=== PATIENT | male | born 1960 | race Caucasian/White ===

== ENCOUNTER 2016-07-30 13:56 | Inpatient (IN) | payer OTHER ==
[2016-07-30] VITALS (12 sets, daily range): BP systolic 135–149; BP diastolic 71–83; PULSE 81–113; RESP 20–26; TEMP 97.4–98.2; O2SAT 88–97
[~2016-07-30] VITALS: Ht 177.8 cm; Wt 134.7 kg
[~2016-07-30 13:56] MED LIST: ATOR40TA16 PO; BUPR100T4 PO; DOCU100C PO; FOLI1TAB4 PO; FURO40TA PO; GABA300C5 PO; HYDR25TA35 PO; ISOS30TA3 PO; LANTINJ SQ; PANT40TA3 PO; POTA10TA2 PO; SENN1TAB PO; SPIR25 PO; SPIRCAP INH; TRAM50TA PO; TRAZ50TA12 PO; [UNRECOGNIZED DRUG - CODE] PO
[2016-07-30 14:14] LABS: MEAN CORPUSCULAR HGB CONC 28.9 % (32.0-36.0)
[2016-07-30] MEDS ORDERED: SODIUM CHLORIDE 0.9% FLUSH 10 ML FLUSH IVF PRN (14:15)
[2016-07-30] MEDS ORDERED: PROCHLORPERAZINE INJ 10 MG/2 ML VIAL IVP ONE (14:30)
[2016-07-30] MEDS ORDERED: ACETAMINOPHEN 325 MG TAB PO ONE (14:30)
[2016-07-30] MEDS ORDERED: diphenhydrAMINE HCL 50 MG/ML VIAL IVP ONE (14:30)
[2016-07-30 14:31] LABS: AUTOMATED NEUTROPHIL # 8.8 TH/MM3 (1.8-7.7); BASOPHIL # 0.1 TH/MM3 (0-0.2); BASOPHIL % 0.7 % (0.0-2.0); EOSINOPHIL # 0.3 TH/MM3 (0-0.4); EOSINOPHIL % 2.6 % (0.0-4.0); HEMATOCRIT 33.5 % (39.0-51.0); LYMPH % 16.5 % (9.0-44.0); LYMPHOCYTE # 2.1 TH/MM3 (1.0-4.8); MEAN CELL VOLUME 65.2 FL (80.0-100.0); MEAN CORPUSCULAR HEMOGLOBIN 18.8 PG (27.0-34.0); MONO % 9.7 % (0.0-8.0); NEUT % 70.5 % (16.0-70.0); PLATELET COUNT 269 TH/MM3 (150-450); RED BLOOD COUNT 5.13 MIL/MM3 (4.50-5.90); RED CELL DISTRIBUTION WIDTH 22.3 % (11.6-17.2); WHITE BLOOD COUNT 12.5 TH/MM3 (4.0-11.0)
[2016-07-30 14:37] LABS: HEMO FLAGS AUTO DIFF
[2016-07-30] MEDS ORDERED: IPRASOL NEB (14:38)
[2016-07-30] MEDS ORDERED: LYRI50CA PO (14:38)
--- NOTE | 2016-07-30 14:43 | RADRPT ---
EXAM DATE/TIME: 07/30/2016 14:25 [facility] COMPARISON: CHEST SINGLE AP, February 12, 2016, 3:55. INDICATIONS : Shortness of breath. MEDICAL HISTORY : Chronic obstructive pulmonary disease. Emphysema. Asthma. SURGICAL HISTORY : None. ENCOUNTER: Initial ACUITY: 1 day PAIN SCORE: 0/10 LOCATION: Bilateral chest FINDINGS: There is borderline cardiomegaly with tiny right pleural effusion. Focal consolidation is not seen. P reviously seen NG tube and ET tube have been removed. CONCLUSION: Tiny right pleural effusion. Amilcar Alfaro MD on July 30, 2016 at 14:41 Board Certified Radiologist. This report was verified electronically.
--- NOTE | 2016-07-30 14:44 | RADRPT ---
EXAM DATE/TIME: 07/30/2016 14:29 [facility] COMPARISON: CHEST SINGLE AP, July 30, 2016, 14:25. INDICATIONS : Abdomen pain. MEDICAL HISTORY : Chronic obstructive pulmonary disease. Emphysema. Asthma. SURGICAL HISTORY : None. ENCOUNTER: Initial ACUITY: 1 day PAIN SCORE: 0/10 LOCATION: Bilateral abdomen FINDINGS: The bowel gas is nonspecific. There are no signs of obstruction or free air for technique. No defini te calcified stones are identified for technique. Tiny right pleural effusion is seen. CONCLUSION: Nonspecific abdomen. Amilcar Alfaro MD on July 30, 2016 at 14:41 Board Certified Radiologist. This report was verified electronically.
[2016-07-30 15:03] LABS: PLATELET ESTIMATE SMEAR NORMAL (NORMAL); PLATELET MORPHOLOGY NORMAL (NORMAL); SCAN/DIFF AUTO DIFF CONFIRMED
--- NOTE | 2016-07-30 15:06 | PD ---
HPI Chief Complaint: Respiratory Distress Time Seen by Provider: 14:12 Travel History International Travel<30 days: No Contact w/Intl Traveler<30days: No Traveled to known affect area: No History of Present Illness HPI The patient's 56 years old. He suffers with COPD and CHF. He uses oxygen at home 3 L nasal cannula essentially 24 7. He complains of dyspnea due to swelling in the abdomen. Abdominal swelling also causes abdominal pain. He has been constipated for 3 days. He tried a powder laxative prescribed by his primary doctor, Dr. Gilliland which she reports has not been helpful. Patient reports a very small bowel movement today. He denies vomiting. PFSH Past Medical History Arthritis: No Asthma: Yes Autoimmune Disease: No Anxiety: No Depression: No Heart Rhythm Problems: No Cancer: No Cardiac Catheterization: No Cardiovascular Problems: Yes Chest Pain: Yes Congestive Heart Failure: No COPD: Yes Cerebrovascular Accident: No Coronary Artery Disease: No Diabetes: Yes Patient Takes Glucophage: Yes Diminished Hearing: No Endocrine: Yes Gastrointestinal Disorders: Yes GERD: Yes Genitourinary: No Headaches: No Hiatal Hernia: No Hypertension: No Immune Disorder: No Implanted Vascular Access Dvce: No Musculoskeletal: Yes Neurologic: Yes Psychiatric: No Reproductive: No Respiratory: Yes Migraines: No Seizures: Yes Thyroid Disease: No Ulcer: No Past Surgical History Abdominal Surgery: No Coronary Artery Bypass Graft: No Other Surgery: Yes (wart removed right leg) Social History Alcohol Use: No (STATES QUIT 1 MONTH AGO) Tobacco Use: Yes (1.5 ppd) Substance Use: No Allergies-Medications (Allergen,Severity, Reaction): Coded Allergies: No Known Allergies (Verified , 02/05/16) Reported Meds & Prescriptions Reported Meds & Active Scripts Active Lantus Solostar Pen Inj (Insulin Glargine) 300 Unit/3 Ml Pen 10 Units SQ BID 30 Days Trazodone (Trazodone HCl) 50 Mg Tab 50 Mg PO HS 90 Days Aldactone (Spironolactone) 25 Mg Tab 25 Mg PO BID@,18 90 Days Senna Plus 8.6-50 mg (Sennosides-Docusate Sodium) 1 Tab Tab 1 Tab PO BID 90 Days Reported Lyrica (Pregabalin) 50 Mg Cap 50 Mg PO TID PRN Duoneb (Ipratropium-Albuterol Neb) 0.5-2.5 Mg/3 Ml Neb 3 Ml NEB QID PRN Hydralazine (Hydralazine HCl) 25 Mg Tab 25 Mg PO TID Take with a meal Gabapentin 300 Mg Cap 300 Mg PO DAILY Furosemide 40 Mg Tab 40 Mg PO DAILY Tramadol (Tramadol HCl) 50 Mg Tab 50 Mg PO BID PRN Spiriva Handihaler (Tiotropium Inh) 18 Mcg Cap 18 Mcg INH DAILY 1 capsule = 18 mcg Potassium Chloride ER (Potassium Chloride) 10 Meq Tab 10 Meq PO BID Folate (Folic Acid) 1 Mg Tab 1 Mg PO DAILY Docusate Sodium 100 Mg Cap 100 Mg PO BID Bupropion HCl 100 Mg Tab 100 Mg PO BID Pantoprazole (Pantoprazole Sodium) 40 Mg Tab 40 Mg PO DAILY Review of Systems Except as stated in HPI: all other systems reviewed are Neg General / Constitutional: No: Fever Physical Exam Narrative GENERAL: 56-year-old male pleasant mild to moderate respiratory distress SKIN: Focused skin assessment warm/dry. HEAD: Atraumatic. Normocephalic. EYES: Pupils equal and round. No scleral icterus. No injection or drainage. ENT: No nasal bleeding or discharge. Mucous membranes pink and moist. NECK: Trachea midline. No JVD. CARDIOVASCULAR: Regular rate and rhythm. No murmur appreciated. RESPIRATORY: Tachypnea. Wheezing. GASTROINTESTINAL: Abdomen somewhat distended. No focal tenderness. Soft. MUSCULOSKELETAL: No obvious deformities. No clubbing. No cyanosis. No edema. NEUROLOGICAL: Awake and alert. No obvious cranial nerve deficits. Motor grossly within normal limits. Normal speech. PSYCHIATRIC: Appropriate mood and affect; insight and judgment normal. Data Data Last Documented VS Vital Signs Date Time Temp Pulse Resp B/P Pulse Ox O2 Delivery O2 Flow Rate FiO2 07/30/16 14:10 95 Nasal Cannula 07/30/16 14:10 4 07/30/16 14:07 109 27 07/30/16 13:57 98.2 135/71 VS reviewed Orders Complete Blood Count With Diff (07/30/16 14:13) Comprehensive Metabolic Panel (07/30/16 14:13) B-Type Natriuretic Peptide (07/30/16 14:13) Magnesium (Mg) (07/30/16 14:13) Ckmb (Isoenzyme) Profile (07/30/16 14:13) Troponin I (07/30/16 14:13) Iv Access Insert/Monitor (07/30/16 14:13) Electrocardiogram (07/30/16 14:13) Ecg Monitoring (07/30/16 14:13) Oximetry (07/30/16 14:13) Oxygen Administration (07/30/16 14:13) Chest, Single Ap (07/30/16 14:13) Sodium Chloride 0.9% Flush (Ns Flush) (07/30/16 14:15) Abdomen, Upright Only (07/30/16 14:14) Acetaminophen (Tylenol) (07/30/16 14:30) Prochlorperazine Inj (Compazine Inj) (07/30/16 14:30) Diphenhydramine Inj (Benadryl Inj) (07/30/16 14:30) Lactic Acid (07/30/16 14:24) Arterial Blood Gas (Abg) (07/30/16 ) Aspirin (Aspirin) (07/30/16 15:30) Nitroglycerin 2% Oint (Nitroglycerin 2% (07/30/16 15:30) Metoprolol Tartrate Inj (Lopressor Inj) (07/30/16 15:30) Naloxone Inj (Narcan Inj) (07/30/16 15:45) Resp Bipap / Cpap Non Invas Vt (07/30/16 15:46) Labs Laboratory Tests Test 07/30/16 07/30/16 07/30/16 14:20 14:50 15:40 White Blood Count 12.5 TH/MM3 Red Blood Count 5.13 MIL/MM3 Hemoglobin 9.7 GM/DL Hematocrit 33.5 % Mean Corpuscular Volume 65.2 FL Mean Corpuscular Hemoglobin 18.8 PG Mean Corpuscular Hemoglobin 28.9 % Concent Red Cell Distribution Width 22.3 % Platelet Count 269 TH/MM3 Mean Platelet Volume 8.6 FL Neutrophils (%) (Auto) 70.5 % Lymphocytes (%) (Auto) 16.5 % Monocytes (%) (Auto) 9.7 % Eosinophils (%) (Auto) 2.6 % Basophils (%) (Auto) 0.7 % Neutrophils # (Auto) 8.8 TH/MM3 Lymphocytes # (Auto) 2.1 TH/MM3 Monocytes # (Auto) 1.2 TH/MM3 Eosinophils # (Auto) 0.3 TH/MM3 Basophils # (Auto) 0.1 TH/MM3 CBC Comment AUTO DIFF Differential Comment AUTO DIFF CONFIRMED Platelet Estimate NORMAL Platelet Morphology Comment NORMAL Sodium Level 138 MEQ/L Potassium Level 4.8 MEQ/L Chloride Level 101 MEQ/L Carbon Dioxide Level 32.2 MEQ/L Anion Gap 5 MEQ/L Blood Urea Nitrogen 15 MG/DL Creatinine 0.83 MG/DL Estimat Glomerular Filtration 96 ML/MIN Rate Random Glucose 176 MG/DL Calcium Level 8.0 MG/DL Magnesium Level 1.7 MG/DL Total Bilirubin 0.5 MG/DL Aspartate Amino Transf 46 U/L (AST/SGOT) Alanine Aminotransferase 78 U/L (ALT/SGPT) Alkaline Phosphatase 143 U/L Total Creatine Kinase 71 U/L Troponin I 0.23 NG/ML B-Type Natriuretic Peptide 295 PG/ML Total Protein 6.2 GM/DL Albumin 3.0 GM/DL Lactic Acid Level 0.7 mmol/L Blood Gas Puncture Site RT RADIAL Blood Gas Patient Temperature 98.6 Blood Gas HCO3 35 mmol/L Blood Gas Base Excess 8.3 mmol/L Blood Gas Oxygen Saturation 88 % Arterial Blood pH 7.29 Arterial Blood Partial 75 mmHg Pressure CO2 Arterial Blood Partial 76 mmHG Pressure O2 Arterial Blood Oxygen Content 12.1 Vol % Arterial Blood 5.7 % Carboxyhemoglobin Arterial Blood Methemoglobin 0.5 % Blood Gas Hemoglobin 9.8 G/DL Oxygen Delivery Device NASAL CANNULA Blood Gas Liter Flow 4 L/M [facility] Medical Decision Making Medical Screen Exam Complete: Yes Emergency Medical Condition: Yes Medical Record Reviewed: Yes Differential Diagnosis COPD, constipation, CHF, bowel obstruction, atelectasis, pleural effusion Narrative Course CBC & BMP Diagram 07/30/16 14:20 BNP 295 Troponin 0.23 LFTs are grossly unremarkable lactic acid 0.7 Last 24 hours Impressions Abdomen X-Ray 07/30/16 1414 Signed Impressions: Service Date/Time: Saturday, July 30, 2016 14:29 - CONCLUSION: Nonspecific abdomen. Amilcar Alfaro MD Chest X-Ray 07/30/16 1413 Signed Impressions: Service Date/Time: Saturday, July 30, 2016 14:25 - CONCLUSION: Tiny right pleural effusion. Amilcar Alfaro MD Patient was found to be diaphoretic and sonorous at about 3:30 PM. He is somewhat difficult to arouse though does respond to sternal rub. Pupils appear to be about 1 mm bilaterally. Mild tachycardia to about 110 was observed. Blood pressure was about 160/90. The patient received 0.4 mg Narcan. The patient also was ordered an ABG which shows hypercarbic respiratory distress: 7.29/75/35 ABG PO2 76 on FIO2. BiPAP initiated. The patient will be admitted to Dr. Zafar under the instrumental music teacher service. Critical Care Narrative Aggregate critical care time was 35 minutes. Time to perform other separately billable procedures was not included in the critical care time. My time did not include minutes spent treating any other patients simultaneously or on activities that did not directly contribute to the patient's treatment. The services I provided to this patient were to treat and/or prevent clinically significant deterioration that could result in: Respiratory arrest, hypoxia, cardiac arrest I provided critical care services requiring my management, as noted below: Chart data review, documentation time, medication orders and management, vital sign assessments/reviewing monitor data, ordering and reviewing lab tests, ordering and interpreting/reviewing x-rays and diagnostic studies, care of the patient and discussion of the patient with the admitting physicians. Diagnosis Primary Impression: Hypercarbia Additional Impressions: Chest pain Qualified Code: R07.9 - Chest pain, unspecified type Constipation Qualified Code: K59.00 - Constipation, unspecified constipation type Respiratory distress Admitting Information Admitting Physician Requests: Admit Additional Instructions: You have a choice when it comes to health care, and we are glad that you chose [facility]. Hopefully, we have met your expectations on today's visit. You are welcome to return to [facility] at any time, as we are committed to meeting the health care needs of our community. Flavio Monge MD Jul 30, 2016 15:06
[2016-07-30 15:10] LABS: ALKALINE PHOSPHATASE 143 U/L (45-117); ALT (GPT) 78 U/L (12-78); ANION GAP 5 MEQ/L (5-15); AST (GOT) 46 U/L (15-37); BICARBONATE 32.2 MEQ/L (21.0-32.0); BLOOD UREA NITROGEN 15 MG/DL (7-18); CHLORIDE 101 MEQ/L (98-107); GLOMERULAR FILTRATION RATE 96 ML/MIN (>89); MAGNESIUM 1.7 MG/DL (1.5-2.5); SODIUM (NA) 138 MEQ/L (136-145); TOTAL BILIRUBIN ADULT 0.5 MG/DL (0.2-1.0)
[2016-07-30 15:12] LABS: POTASSIUM 4.8 MEQ/L (3.5-5.1)
[2016-07-30 15:13] LABS: CREATINE KINASE 71 U/L (39-308)
[2016-07-30] MEDS ORDERED: NITROGLYCERIN 2% OINT 1 GM PACKET TOP ONE (15:30)
[2016-07-30] MEDS ORDERED: ASPIRIN 325 MG TAB PO ONE (15:30)
[2016-07-30] MEDS: METOPROLOL TARTRATE 5 MG/5 ML VIAL IVS SCH ×3 (15:35→15:59)
[2016-07-30] MEDS ORDERED: NALOXONE HCL 0.4 MG/ML AMP IV PUSH ONE (15:45)
[2016-07-30 15:50] LABS: BLOOD GAS BASE EXCESS 8.3 mmol/L (-2-2); BLOOD GAS CARBOXYHEMOGLOBIN 5.7 % (0-4); BLOOD GAS HCO3 35 mmol/L (22-26); BLOOD GAS METHEMOGLOBIN 0.5 % (0-2); BLOOD GAS O2 HGB SATURATION 88 % (90-100); BLOOD GAS OXYGEN CONTENT 12.1 Vol % (12.0-20.0); BLOOD GAS PCO2 75 mmHg (38-42); BLOOD GAS PO2 76 mmHG (61-120); BLOOD GAS TOTAL HGB 9.8 G/DL (12.0-16.0); CRITICAL VALUE YES; DRAW SITE RT RADIAL; LITER FLOW 4 L/M; NUMBER OF ARTERIAL PUNCTURES 2; OXYGEN DEVICE NASAL CANNULA; STAT YES; TEMP CORR TO 98.6; ULNAR PULSE PRESENT
[2016-07-30] MEDS ORDERED: POTASSIUM PHOSPHATE INJ 30 MMOL in SODIUM CHLOR 0.9% 250 ML INJ 250 ML IV PRN (16:45)
[2016-07-30] MEDS ORDERED: MAGNESIUM SULFATE INJ 4 GM in SODIUM CHLORIDE 0.9% INJ 92 ML IV PRN (16:45)
[2016-07-30] MEDS ORDERED: SODIUM CHLORIDE 0.9% FLUSH 10 ML FLUSH IV FLUSH PRN (16:45)
[2016-07-30] MEDS ORDERED: MAGNESIUM OXIDE 400 MG TAB PO PRN (16:45)
[2016-07-30] MEDS ORDERED: POTASSIUM PHOSPHATE MONOBASIC 500 MG TAB PO PRN (16:45)
[2016-07-30] MEDS ORDERED: GLUCAGON 1 MG/ML VIAL OTHER PRN (16:45)
[2016-07-30] MEDS ORDERED: POTASSIUM CHLORIDE 25 MEQ EFFERVESCENT TAB PO PRN (16:45)
[2016-07-30] MEDS ORDERED: POTASSIUM CHLOR 20 MEQ PREMIX 100 ML IV PRN ×2 (16:45)
[2016-07-30] MEDS ORDERED: MISCELLANEOUS NURSING INFORMATION XX SCH (16:45)
[2016-07-30] MEDS ORDERED: MAGNESIUM HYDROXIDE SUSP 30 ML CUP PO PRN (16:45)
[2016-07-30] MEDS ORDERED: DEXTROSE 50% IN WATER 50 ML VIAL(D50) IV PUSH PRN (16:45)
[2016-07-30] MEDS ORDERED: MAGNESIUM SULFATE INJ 2 GM in SODIUM CHLORIDE 0.9% INJ 96 ML IV PRN (16:45)
[2016-07-30] MEDS ORDERED: CHLORHEXIDINE GLUCONATE 2 % 1 PACK (2 CLOTHS) TOP PRN (16:45)
[2016-07-30] MEDS ORDERED: POTASSIUM PHOSPHATE MONOBASIC 500 MG TAB PO/TUBE PRN (16:45)
[2016-07-30] MEDS ORDERED: POTASSIUM CHLOR 40 MEQ PREMIX 100 ML IV PRN ×2 (16:45)
[2016-07-30] MEDS ORDERED: SODIUM PHOSPHATE INJ 30 MMOL in SODIUM CHLOR 0.9% 250 ML INJ 240 ML IV PRN (16:45)
[2016-07-30] MEDS ORDERED: RESP: ALBUTEROL 2.5 MG/IPRATROPIUM 0.5 MG NEB (PRN) INH (17:00)
[2016-07-30] MEDS: SOD PHOSPHATE/SOD BIPHOSPHATE (ADULT) ENEMA 133ML RECTAL ONE ×2 (17:00→18:09)
[2016-07-30] MEDS: SODIUM CHLOR 0.9% 1000 ML INJ 1,000 ML IV SCH (17:09)
[2016-07-30] MEDS: RESP: ALBUTEROL 2.5 MG/IPRATROPIUM 0.5 MG NEB (SCH) INH ×2 (17:09→21:45)
--- NOTE | 2016-07-30 17:14 | HHI.HP ---
HPI Service Critical Care Medicine Primary Care Physician Jozef Gilliland MD Admission Diagnosis Hyercarbic Resp Distress, Chest Pain, Constipation Diagnosis: Travel History International Travel<30 Days: No Contact w/Intl Traveler <30 Da: No Traveled to Known Affected Are: No History of Present Illness This is a 56 years old male patient well-known to [facility]. His past medical history is significant for CO2 narcosis, O2 dependency COPD CHF, and constipation. He uses oxygen at home 3 L nasal cannula essentially . The patient presented ABG was drawn PCO2 was noted to be 75. The patient was placed on BiPAP in the ED. He complains of dyspnea due to swelling in the abdomen, and abdominal pain.He has been constipated for 3 days. He tried a powder laxative prescribed by his primary doctor, Dr. Gilliland which she reports has not been helpful. Patient reports a very small bowel movement today. He denies vomiting. In the ED a KUB was obtained, which revealed no free air. Critical care medicine was consulted for management. History PFSH Past Medical History Arthritis: No Asthma: Yes Autoimmune Disease: No Anxiety: No Depression: No Heart Rhythm Problems: No Cancer: No Cardiac Catheterization: No Cardiovascular Problems: Yes Chest Pain: Yes Congestive Heart Failure: No COPD: Yes Cerebrovascular Accident: No Coronary Artery Disease: No Diabetes: Yes Patient Takes Glucophage: Yes Diminished Hearing: No Endocrine: Yes Gastrointestinal Disorders: Yes GERD: Yes Genitourinary: No Headaches: No Hiatal Hernia: No Hypertension: No Immune Disorder: No Implanted Vascular Access Dvce: No Musculoskeletal: Yes Neurologic: Yes Psychiatric: No Reproductive: No Respiratory: Yes Migraines: No Seizures: Yes Thyroid Disease: No Ulcer: No Past Surgical History Abdominal Surgery: No Coronary Artery Bypass Graft: No Other Surgery: Yes (wart removed right leg) Social History Alcohol Use: No (STATES QUIT 1 MONTH AGO) Tobacco Use: Yes (1.5 ppd) Substance Use: No Allergies-Medications Allergies-Medications (Allergen,Severity, Reaction): Coded Allergies: No Known Allergies (Verified , 02/05/16) Reported Meds & Prescriptions Reported Meds & Active Scripts Active Lantus Solostar Pen Inj (Insulin Glargine) 300 Unit/3 Ml Pen 10 Units SQ BID 30 Days Trazodone (Trazodone HCl) 50 Mg Tab 50 Mg PO HS 90 Days Aldactone (Spironolactone) 25 Mg Tab 25 Mg PO BID@09,18 90 Days Senna Plus 8.6-50 mg (Sennosides-Docusate Sodium) 1 Tab Tab 1 Tab PO BID 90 Days Reported Lyrica (Pregabalin) 50 Mg Cap 50 Mg PO TID PRN Duoneb (Ipratropium-Albuterol Neb) 0.5-2.5 Mg/3 Ml Neb 3 Ml NEB QID PRN Hydralazine (Hydralazine HCl) 25 Mg Tab 25 Mg PO TID Take with a meal Gabapentin 300 Mg Cap 300 Mg PO DAILY Furosemide 40 Mg Tab 40 Mg PO DAILY Tramadol (Tramadol HCl) 50 Mg Tab 50 Mg PO BID PRN Spiriva Handihaler (Tiotropium Inh) 18 Mcg Cap 18 Mcg INH DAILY 1 capsule = 18 mcg Potassium Chloride ER (Potassium Chloride) 10 Meq Tab 10 Meq PO BID Folate (Folic Acid) 1 Mg Tab 1 Mg PO DAILY Docusate Sodium 100 Mg Cap 100 Mg PO BID Bupropion HCl 100 Mg Tab 100 Mg PO BID Pantoprazole (Pantoprazole Sodium) 40 Mg Tab 40 Mg PO DAILY ROS Review of Systems Except as stated in HPI: all other systems reviewed are Neg General / Constitutional: No: Fever Physical Exam Vital Signs Vital Signs Date Time Temp Pulse Resp B/P Pulse Ox O2 Delivery O2 Flow Rate FiO2 07/30/16 16:46 96 BiPAP 35 07/30/16 16:45 81 25 143/77 96 BiPAP 35 07/30/16 16:00 96 BiPAP 07/30/16 16:00 96 35 07/30/16 15:40 94 Nasal Cannula 4.00 07/30/16 14:10 95 Nasal Cannula 07/30/16 14:10 94 Nasal Cannula 4 07/30/16 14:10 95 Nasal Cannula 4 07/30/16 14:07 109 27 95 3 07/30/16 13:57 98.2 113 26 135/71 88 Laboratory Laboratory Tests Test 07/30/16 07/30/16 07/30/16 14:20 14:50 15:40 White Blood Count 12.5 Red Blood Count 5.13 Hemoglobin 9.7 Hematocrit 33.5 Mean Corpuscular Volume 65.2 Mean Corpuscular Hemoglobin 18.8 Mean Corpuscular Hemoglobin 28.9 Concent Red Cell Distribution Width 22.3 Platelet Count 269 Mean Platelet Volume 8.6 Neutrophils (%) (Auto) 70.5 Lymphocytes (%) (Auto) 16.5 Monocytes (%) (Auto) 9.7 Eosinophils (%) (Auto) 2.6 Basophils (%) (Auto) 0.7 Neutrophils # (Auto) 8.8 Lymphocytes # (Auto) 2.1 Monocytes # (Auto) 1.2 Eosinophils # (Auto) 0.3 Basophils # (Auto) 0.1 CBC Comment AUTO DIFF Differential Comment AUTO DIFF CONFIRMED Platelet Estimate NORMAL Platelet Morphology Comment NORMAL Sodium Level 138 Potassium Level 4.8 Chloride Level 101 Carbon Dioxide Level 32.2 Anion Gap 5 Blood Urea Nitrogen 15 Creatinine 0.83 Estimat Glomerular Filtration 96 Rate Random Glucose 176 Calcium Level 8.0 Magnesium Level 1.7 Total Bilirubin 0.5 Aspartate Amino Transf 46 (AST/SGOT) Alanine Aminotransferase 78 (ALT/SGPT) Alkaline Phosphatase 143 Total Creatine Kinase 71 Troponin I 0.23 B-Type Natriuretic Peptide 295 Total Protein 6.2 Albumin 3.0 Lactic Acid Level 0.7 Blood Gas Puncture Site RT RADIAL Blood Gas Patient Temperature 98.6 Blood Gas HCO3 35 Blood Gas Base Excess 8.3 Blood Gas Oxygen Saturation 88 Arterial Blood pH 7.29 Arterial Blood Partial 75 Pressure CO2 Arterial Blood Partial 76 Pressure O2 Arterial Blood Oxygen Content 12.1 Arterial Blood 5.7 Carboxyhemoglobin Arterial Blood Methemoglobin 0.5 Blood Gas Hemoglobin 9.8 Oxygen Delivery Device NASAL CANNULA Blood Gas Liter Flow 4 Result Diagram: 07/30/16 1420 07/30/16 1420 Imaging Last Impressions Abdomen X-Ray 07/30/16 1414 Signed Impressions: Service Date/Time: Saturday, July 30, 2016 14:29 - CONCLUSION: Nonspecific abdomen. Amilcar Alfaro MD Chest X-Ray 07/30/16 1413 Signed Impressions: Service Date/Time: Saturday, July 30, 2016 14:25 - CONCLUSION: Tiny right pleural effusion. Amilcar Alfaro MD Septic Shock Reassessment Peripheral Pulses: Bounding Right Radial Bounding Left Radial Bounding Right Popliteal Bounding Left Popliteal Assessment and Plan Assessment and Plan Plan by systems: Neurologic: History of depression Respiratory: Hypercapnic Respiratory failure CO2 narcosis COPD exacerbation Asthma Tobacco abuse O2 dependency Continue BiPAP 14/5 FiO2 0.35 Maintain O2 sat greater than 92%, wean FiO2 as tolerated to home O2 dependency Bronchodilators every 6 hours scheduled, every 2 hours when necessary Mucomyst nebulizer treatments 3 days Begin Levaquin Patient again counseled on smoking cessation currently smokes 1.5 packs per day Consider nicotine patch 7 days Restrictive respiratory pattern secondary to morbid obesity and constipation Cardiovascular: Coronary artery disease History of CHF Troponin slightly elevated 0.23, continue to trend 02/13/16 echo PASP 53, ejection fraction 65% 07/30-EKG sinus tach with LAE Received beta susy, metoprolol in EDx 1 dose Continue Lasix home medication Renal: Monitor BMP -- Strict I/Os FEN/GI: Morbid obesity Constipation NPO except meds MiraLAX senna Colace daily Fleets enema 1 now Lactulose 30 cc daily Heme/ID: History of microcytic anemia Leukocytosis Begin Levaquin Continue folate home dose Monitor CBC Endocrine: Diabetes mellitus 2 Glucose monitoring per ICU protocol, low-dose regimen -- SSI Prophylaxis: GI Prophylaxis Protonix DVT Prophylaxis -- SCDs Heparin Lines: Peripheral IVs 2. Central line if indicated Dispo: my billing statement This patient remains critically ill with one or more organ systems which are or may become a threat to life. I have spent in excess of 55 minutes discontinuously in the care and management of this patient. This time is exclusive of procedures, and includes, but is not limited to, evaluation of the patient, review of the medical record, discussions with family, consultants, nursing staff, or respiratory therapy, and documentation in the medical record. Code Status Full Discussed Condition With Dr. Monge, ED physician and BROADCAST TECHNICIAN at bedside Jeanette Zafar MD Jul 30, 2016 17:14
[2016-07-30] MEDS: DOCUSATE SODIUM 100 MG CAP PO SCH ×2 (18:09→21:18)
[2016-07-30] MEDS: LACTULOSE SYRUP 20 GM/30 ML CUP PO SCH (18:09)
[2016-07-30] MEDS: methylPREDNISolone SOD SUCC 125 MG/2 ML VIAL IV PUSH SCH ×2 (18:09→21:19)
[2016-07-30] MEDS: LEVOFLOXACIN 500 MG PREMIX INJ 100 ML IV SCH (18:10)
[2016-07-30] MEDS: HEPARIN SODIUM - SQ 10,000 UNITS/ML VIAL SQ SCH (18:10)
[2016-07-30] MEDS: INSULIN NovoLIN REGULAR SUPPLEMENTAL SCALE SQ SCH (21:00)
[2016-07-30] MEDS: SODIUM CHLORIDE 0.9% FLUSH 10 ML FLUSH IV FLUSH SCH (21:19)
[2016-07-30 23:24] LABS: BLOOD GAS HCO3 32 mmol/L (22-26); BLOOD GAS METHEMOGLOBIN 1.1 % (0-2); BLOOD GAS O2 HGB SATURATION 91 % (90-100); BLOOD GAS OXYGEN CONTENT 12.8 Vol % (12.0-20.0); BLOOD GAS PCO2 62 mmHg (38-42); BLOOD GAS PO2 83 mmHg (61-120); BLOOD GAS TOTAL HGB 9.9 G/DL (12.0-16.0); TEMP CORR TO 98.6
[2016-07-30 23:26] LABS: CRITICAL VALUE YES; LITER FLOW 4 L/M; OXYGEN DEVICE NASAL CANNULA
[2016-07-30 23:27] LABS: DRAW SITE LT RADIAL; NUMBER OF ARTERIAL PUNCTURES 1; STAT NO; ULNAR PULSE PRESENT
[2016-07-31] VITALS (14 sets, daily range): BP systolic 122–165; BP diastolic 68–85; PULSE 89–102; RESP 18–25; TEMP 94.6–98.4; O2SAT 92–96
[2016-07-31] MEDS ORDERED: ACETAMINOPHEN 1000 MG/100 ML VIAL IV ONE (00:45)
[2016-07-31] MEDS: RESP: ALBUTEROL 2.5 MG/IPRATROPIUM 0.5 MG NEB (SCH) INH ×4 (03:09→20:51)
[2016-07-31] MEDS: RESP: ACETYLCYSTEINE 10% 30 ML NEB NEB SCH ×5 (03:21→23:45)
[2016-07-31] MEDS: HEPARIN SODIUM - SQ 10,000 UNITS/ML VIAL SQ SCH ×2 (03:52→18:10)
[2016-07-31] MEDS ORDERED: CHLORHEXIDINE GLUCONATE 2 % 1 PACK (2 CLOTHS) TOP SCH (04:00)
[2016-07-31] MEDS: SODIUM CHLOR 0.9% 1000 ML INJ 1,000 ML IV SCH (05:07)
[2016-07-31] MEDS: INSULIN NovoLIN REGULAR SUPPLEMENTAL SCALE SQ SCH ×4 (06:34→21:35)
[2016-07-31] MEDS: LACTULOSE SYRUP 20 GM/30 ML CUP PO SCH (09:00)
[2016-07-31] MEDS: DOCUSATE SODIUM 100 MG CAP PO SCH ×3 (09:00→21:00)
[2016-07-31] MEDS: PANTOPRAZOLE SODIUM 40 MG VIAL IV SCH (09:04)
[2016-07-31] MEDS: methylPREDNISolone SOD SUCC 125 MG/2 ML VIAL IV PUSH SCH ×2 (09:04→20:02)
[2016-07-31] MEDS: SODIUM CHLORIDE 0.9% FLUSH 10 ML FLUSH IV FLUSH SCH ×2 (09:04→20:02)
--- NOTE | 2016-07-31 09:04 | HHI.CCPN ---
Subjective Remarks/Hospital Course This is a 56 years old male patient well-known to [facility]. His past medical history is significant for CO2 narcosis, O2 dependency COPD CHF, and constipation. He uses oxygen at home 3 L nasal cannula essentially . The patient presented ABG was drawn PCO2 was noted to be 75. The patient was placed on BiPAP in the ED. He complains of dyspnea due to swelling in the abdomen, and abdominal pain.He has been constipated for 3 days. He tried a powder laxative prescribed by his primary doctor, Dr. Gilliland which she reports has not been helpful. Patient reports a very small bowel movement today. He denies vomiting. In the ED a KUB was obtained, which revealed no free air. Critical care medicine was consulted for management. 07/31 Patient is off BIPAP on 5L oxygen with good sats. Awake and alert requesting coffee and something to eat Afebrile. Repeat ABG last night showed improvement s in his resp acidosis. Objective Vital Signs Date Time Temp Pulse Resp B/P Pulse Ox O2 Delivery O2 Flow Rate FiO2 07/31/16 08:44 95 Nasal Cannula 4.00 07/31/16 06:00 99 07/31/16 04:00 94.6 20 154/85 07/30/16 20:40 50 Intake and Output 07/30/16 07/30/16 07/31/16 08:00 16:00 00:00 Intake Total 380 ml Output Total 475 ml Balance -95 ml Result Diagram: 07/30/16 1420 07/30/16 1420 Other Results Laboratory Tests Test 07/30/16 07/30/16 07/30/16 07/30/16 14:20 14:50 15:40 20:50 White Blood Count 12.5 TH/MM3 Red Blood Count 5.13 MIL/MM3 Hemoglobin 9.7 GM/DL Hematocrit 33.5 % Mean Corpuscular Volume 65.2 FL Mean Corpuscular Hemoglobin 18.8 PG Mean Corpuscular Hemoglobin 28.9 % Concent Red Cell Distribution Width 22.3 % Platelet Count 269 TH/MM3 Mean Platelet Volume 8.6 FL Neutrophils (%) (Auto) 70.5 % Lymphocytes (%) (Auto) 16.5 % Monocytes (%) (Auto) 9.7 % Eosinophils (%) (Auto) 2.6 % Basophils (%) (Auto) 0.7 % Neutrophils # (Auto) 8.8 TH/MM3 Lymphocytes # (Auto) 2.1 TH/MM3 Monocytes # (Auto) 1.2 TH/MM3 Eosinophils # (Auto) 0.3 TH/MM3 Basophils # (Auto) 0.1 TH/MM3 CBC Comment AUTO DIFF Differential Comment AUTO DIFF CONFIRMED Platelet Estimate NORMAL Platelet Morphology Comment NORMAL Sodium Level 138 MEQ/L Potassium Level 4.8 MEQ/L Chloride Level 101 MEQ/L Carbon Dioxide Level 32.2 MEQ/L Anion Gap 5 MEQ/L Blood Urea Nitrogen 15 MG/DL Creatinine 0.83 MG/DL Estimat Glomerular Filtration 96 ML/MIN Rate Random Glucose 176 MG/DL Calcium Level 8.0 MG/DL Phosphorus Level 2.7 MG/DL Magnesium Level 1.7 MG/DL Total Bilirubin 0.5 MG/DL Aspartate Amino Transf 46 U/L (AST/SGOT) Alanine Aminotransferase 78 U/L (ALT/SGPT) Alkaline Phosphatase 143 U/L Total Creatine Kinase 71 U/L Troponin I 0.23 NG/ML B-Type Natriuretic Peptide 295 PG/ML Total Protein 6.2 GM/DL Albumin 3.0 GM/DL Lactic Acid Level 0.7 mmol/L Blood Gas Puncture Site RT RADIAL Blood Gas Patient Temperature 98.6 Blood Gas HCO3 35 mmol/L Blood Gas Base Excess 8.3 mmol/L Blood Gas Oxygen Saturation 88 % Arterial Blood pH 7.29 Arterial Blood Partial 75 mmHg Pressure CO2 Arterial Blood Partial 76 mmHG Pressure O2 Arterial Blood Oxygen Content 12.1 Vol % Arterial Blood 5.7 % Carboxyhemoglobin Arterial Blood Methemoglobin 0.5 % Blood Gas Hemoglobin 9.8 G/DL Oxygen Delivery Device NASAL CANNULA Blood Gas Liter Flow 4 L/M Nasal Screen MRSA (PCR) NEGATIVE Test 07/30/16 23:05 Blood Gas Puncture Site LT RADIAL Blood Gas Patient Temperature 98.6 Blood Gas HCO3 32 mmol/L Blood Gas Base Excess 6.0 mmol/L Blood Gas Oxygen Saturation 91 % Arterial Blood pH 7.33 Arterial Blood Partial 62 mmHg Pressure CO2 Arterial Blood Partial 83 mmHg Pressure O2 Arterial Blood Oxygen Content 12.8 Vol % Arterial Blood 4.0 % Carboxyhemoglobin Arterial Blood Methemoglobin 1.1 % Blood Gas Hemoglobin 9.9 G/DL Oxygen Delivery Device NASAL CANNULA Blood Gas Liter Flow 4 L/M Imaging L Last Impressions Abdomen X-Ray 07/30/16 1414 Signed Impressions: Service Date/Time: Saturday, July 30, 2016 14:29 - CONCLUSION: Nonspecific abdomen. Amilcar Alfaro MD Chest X-Ray 07/30/16 1413 Signed Impressions: Service Date/Time: Saturday, July 30, 2016 14:25 - CONCLUSION: Tiny right pleural effusion. Amilcar Alfaro MD Objective Remarks GENERAL: Patient is 56 yo lying in bed in NAD SKIN: Warm and dry. HEAD: Normocephalic. EYES: No scleral icterus. No injection or drainage. NECK: Supple, trachea midline. No JVD or lymphadenopathy. CARDIOVASCULAR: Regular rate and rhythm without murmurs, gallops, or rubs. RESPIRATORY: Breath sounds equal bilaterally. No accessory muscle use. GASTROINTESTINAL: Abdomen soft, non-tender, nondistended. MUSCULOSKELETAL: No cyanosis, or edema. Neuro: Awake and alert. A/P Assessment and Plan Plan by systems: Neurologic: History of depression Monitor neuro status and avoid any sedatives. Respiratory: Hypercapnic Respiratory failure CO2 narcosis COPD exacerbation Asthma Tobacco abuse O2 dependency Continue with oxygen keep sat >92% Bronchodilators, on Solumederol 60mg Q12, add Symbicort and Spiriva NIPPV PRN for res distress. Pulm eval. Check ABG PFT and Sleep study as outpatient. Cardiovascular: Coronary artery disease History of CHF Mil elevated troponin Monitor HR and BP keep MAP>65mmHg Troponin slightly elevated 0.23, continue to trend. Monitor cardiac enzymes 02/13/16 echo PASP 53, ejection fraction 65% Renal: Monitor renal function, I/O's, electrolytes replacement per protocol. FEN/GI: Morbid obesity Constipation Start PO heart healthy diet. KUB abdomen 07/30: No obstruction or free air. MiraLAX senna Colace daily Lactulose 30 cc daily Heme/ID: History of microcytic anemia Leukocytosis Continue with empiric abx (Levaquin)monitor or signs of infections ( Fever, WBC ) check UA Continue folate home dose Monitor CBC Endocrine: Diabetes mellitus 2 Glucose monitoring per ICU protocol, low-dose regimen -- SSI Prophylaxis: GI Prophylaxis Protonix DVT Prophylaxis -- SCDs, Heparin Lines: Peripheral IVs 2. Will sign off and transfer care to [facility] Level 3 Dexter Wheatley MD Jul 31, 2016 09:04
[2016-07-31 09:05] LABS: MEAN CORPUSCULAR HGB CONC 27.8 % (32.0-36.0)
[2016-07-31] MEDS: ACETAMINOPHEN 325 MG TAB PO PRN ×2 (09:08→20:01)
[2016-07-31] MEDS ORDERED: hydrALAZINE HCL 20 MG/ML VIAL IV PUSH PRN (09:15)
[2016-07-31 09:47] LABS: BASOPHIL % 0.4 % (0.0-2.0); HEMATOCRIT 38.2 % (39.0-51.0); LYMPH % 6.2 % (9.0-44.0); LYMPHOCYTE # 0.6 TH/MM3 (1.0-4.8); MEAN CELL VOLUME 66.8 FL (80.0-100.0); MEAN CORPUSCULAR HEMOGLOBIN 18.6 PG (27.0-34.0); MONO % 3.3 % (0.0-8.0); NEUT % 90.1 % (16.0-70.0); PLATELET COUNT 217 TH/MM3 (150-450); RED BLOOD COUNT 5.72 MIL/MM3 (4.50-5.90); RED CELL DISTRIBUTION WIDTH 22.1 % (11.6-17.2)
[2016-07-31 09:56] LABS: HEMO FLAGS AUTO DIFF
[2016-07-31 10:04] LABS: ANION GAP 3 MEQ/L (5-15); AST (GOT) 17 U/L (15-37); BICARBONATE 36.2 MEQ/L (21.0-32.0); BLOOD UREA NITROGEN 13 MG/DL (7-18); CHLORIDE 101 MEQ/L (98-107); GLOMERULAR FILTRATION RATE 98 ML/MIN (>89); MAGNESIUM 2.1 MG/DL (1.5-2.5); POTASSIUM 4.8 MEQ/L (3.5-5.1); SODIUM (NA) 140 MEQ/L (136-145)
[2016-07-31 10:16] LABS: ALKALINE PHOSPHATASE 133 U/L (45-117); ALT (GPT) 72 U/L (12-78); TOTAL BILIRUBIN ADULT 0.5 MG/DL (0.2-1.0)
[2016-07-31 10:26] LABS: BANDS 2 % (0-6); MYELOCYTES 1 % (0-0); NEUTROPHIL # MANUAL DIFF 9.1 TH/MM3 (1.8-7.7); POLYS (SEG NEUTROPHILS) 88 % (16-70); WBC DIFF SAMPLE 100
[2016-07-31 10:27] LABS: PLATELET ESTIMATE SMEAR NORMAL (NORMAL); PLATELET MORPHOLOGY NORMAL (NORMAL); SCAN/DIFF FINAL DIFF MANUAL
[2016-07-31 11:11] LABS: BLOOD GAS BASE EXCESS 5.5 mmol/L (-2-2); BLOOD GAS CARBOXYHEMOGLOBIN 3.4 % (0-4); BLOOD GAS HCO3 32 mmol/L (22-26); BLOOD GAS O2 HGB SATURATION 87 % (90-100); BLOOD GAS OXYGEN CONTENT 12.2 Vol % (12.0-20.0); BLOOD GAS PCO2 65 mmHg (38-42); BLOOD GAS PO2 65 mmHg (61-120); BLOOD GAS TOTAL HGB 9.9 G/DL (12.0-16.0); TEMP CORR TO 98.6
[2016-07-31 11:12] LABS: CRITICAL VALUE YES; DRAW SITE RT RADIAL; LITER FLOW 4 L/M; NUMBER OF ARTERIAL PUNCTURES 2; OXYGEN DEVICE NASAL CANNULA; STAT NO; ULNAR PULSE PRESENT
[2016-07-31] MEDS: BUDESONIDE-FORMOTEROL 160/4.5 MCG INHALER INH SCH ×2 (11:33→20:05)
[2016-07-31] MEDS: TIOTROPIUM BROMIDE 18 MCG INH INH SCH (11:33)
--- NOTE | 2016-07-31 11:49 | EKG ---
Date Performed: 07/30/2016 Time Performed: 14:08:12 PTAGE: 56 years EKG: SINUS TACHYCARDIA POSSIBLE LEFT ATRIAL ENLARGEMENT BORDERLINE RIGHT AXIS DEVIATION ABNORMAL RHYTHM ECG INTERPRETATION BASED ON A DEFAULT AGE OF 40 YEARS PREVIOUS TRACING : 02/05/2016 16.50 Compared to prior tracing no significant change DOCTOR: Eduard Leonard Interpretating Date/Time 07/31/2016 11:47:23
[2016-07-31 12:36] LABS: BLOOD, URINE NEG (NEG); COMMENT (UR) CULT NOT INDICATED; CULTURE IF INDICATED CULT NOT INDICATED; GLUCOSE,URINE 1000 mg/dL (NEG); HYALINE CAST, URINE 1 /lpf (RARE); KETONE, URINE NEG (NEG); MUCUS URINE FEW /lpf (OCC); NITRITE,URINE NEG (NEG); SQUAMOUS EPITHELIAL CELL URINE <1 /hpf (0-5); URINE COLOR YELLOW (YELLW/STRAW)
[2016-07-31] MEDS: POLYETHYLENE GLYCOL 17 GM PKG PO SCH (18:00)
[2016-07-31] MEDS: LEVOFLOXACIN 500 MG PREMIX INJ 100 ML IV SCH (18:12)
[2016-07-31 21:02] LABS: MEAN CORPUSCULAR HGB CONC 28.2 % (32.0-36.0)
[2016-07-31] MEDS ORDERED: oxyCODONE/ACETAMINOPHEN 10 MG/325 MG TAB PO ONE (21:45)
[2016-08-01] VITALS: BP 169/78; PULSE 106; RESP 20; TEMP 98.5; O2SAT 94
[2016-08-01 02:00] VITALS: PULSE 105
[2016-08-01 04:00] VITALS: BP 165/77; PULSE 104; RESP 22; TEMP 98.2; O2SAT 92
[2016-08-01 04:16] LABS: HEMATOCRIT 33.7 % (39.0-51.0); LYMPH % 4.5 % (9.0-44.0); LYMPHOCYTE # 0.4 TH/MM3 (1.0-4.8); MEAN CELL VOLUME 67.4 FL (80.0-100.0); MONO % 3.3 % (0.0-8.0); NEUT % 92.2 % (16.0-70.0); PLATELET COUNT 212 TH/MM3 (150-450); RED BLOOD COUNT 5.01 MIL/MM3 (4.50-5.90); RED CELL DISTRIBUTION WIDTH 22.1 % (11.6-17.2); WHITE BLOOD COUNT 9.7 TH/MM3 (4.0-11.0)
[2016-08-01 04:26] LABS: HEMO FLAGS AUTO DIFF
[2016-08-01] MEDS: RESP: ALBUTEROL 2.5 MG/IPRATROPIUM 0.5 MG NEB (SCH) INH ×2 (04:36→08:21)
[2016-08-01 04:45] LABS: BICARBONATE 35.6 MEQ/L (21.0-32.0); POTASSIUM 4.7 MEQ/L (3.5-5.1)
[2016-08-01] MEDS: HEPARIN SODIUM - SQ 10,000 UNITS/ML VIAL SQ SCH (05:04)
[2016-08-01] MEDS: ACETAMINOPHEN 325 MG TAB PO PRN ×2 (05:04→07:55)
[2016-08-01 06:00] VITALS: PULSE 101
[2016-08-01] MEDS: INSULIN NovoLIN REGULAR SUPPLEMENTAL SCALE SQ SCH (06:28)
--- NOTE | 2016-08-01 07:19 | MB ---
cc: MICHAEL GUZMAN DATE OF CONSULTATION 07/31/[address] Wheatley REASON FOR CONSULTATION Pulmonary management HISTORY OF PRESENT ILLNESS Mr. Guerra is a 56-year-old male with multiple admissions in this hospital as well as at [facility]. He was recently admitted in [facility] and signed out against medical advice. He came with increasing shortness of breath, has cough and congestion and wheezing. He was evaluated in the emergency room. His blood gas showed a pH 7.29, pCO2 75, CO2 76, bicarb 35. He was treated with nasal cannula. Repeat blood gas 7.30, pCO2 65, CO2 65, bicarb 32. His CBC showed WBC count 10,000, hemoglobin 10.6, hematocrit 38.2, MCV 66, platelet count 217. His sodium 140, potassium 4.8, chloride 101, CO2 36, BUN 13, creatinine 0.82. His chest x-ray shows tiny pleural effusion. PAST MEDICAL HISTORY Significant for: 1. Long standing history of COPD 2. Obstructive sleep apnea 3. Congestive heart 4. Diabetes mellitus 5. Hypertension 6. Obesity 7. Noncompliance MEDICATIONS He is currently takin. Spiriva once a day 2. Symbicort 160/4.5, two puffs twice a day. 3. Hydralazine 10 mg p.r.n. 4. Protonix 40 mg a day 5. Mucomyst nebulizer treatment 6. He is on insulin Levaquin 500 mg a day 7. Solu-Medrol 60 mg g61-lcal. ALLERGIES NO KNOWN DRUG ALLERGIES. SOCIAL HISTORY He has a long history of smoking, alcohol abuse and continues to smoke. FAMILY HISTORY Noncontributory REVIEW OF SYSTEMS He has increased swelling in his leg. No headache or dizziness. No seizure, stroke or epilepsy. PHYSICAL EXAMINATION Obese male up in the chair of three liters nasal cannula. Mild short of breath. He insists to go home. VITAL SIGNS: Blood pressure 137/74, heart rate 96, respirations 16, temperature 98.4. HEAD, EYES, EARS, NOSE, AND THROAT: Pupils are equal and reactive to light. Oral mucosa and nasal mucosa normal. NECK: Supple. JVP not raised. CHEST: Equal bilaterally. No rhonchi. CARDIOVASCULAR: S1 and S2 normal. EXTREMITIES: 1+ pedal edema. 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 No focal deficits. IMPRESSION 1. Hypercapnic respiratory failure is improving. 2. Hypertension 3. Diabetes mellitus 4. Nicotine use 5. Coronary artery disease 6. Morbid obesity PLAN We will give IV Solu-Medrol. Encourage him to use C-PAP at night and aerosol treatment with Albuterol and Atrovent, Symbicort twice a day. Spiriva once a day. Monitor blood sugar. Further treatment will depend upon the course in the hospital. He will need a sleep study as an outpatient. Thank you Dr. Wheatley for this consultation. MD MARTY Tucker/CHAD /7:09 PM /7:10 AM
[2016-08-01] MEDS: PANTOPRAZOLE SODIUM 40 MG VIAL IV SCH (07:51)
[2016-08-01] MEDS: LACTULOSE SYRUP 20 GM/30 ML CUP PO SCH (07:51)
[2016-08-01] MEDS: DOCUSATE SODIUM 100 MG CAP PO SCH (07:51)
[2016-08-01] MEDS: SODIUM CHLORIDE 0.9% FLUSH 10 ML FLUSH IV FLUSH SCH (07:52)
[2016-08-01] MEDS: BUDESONIDE-FORMOTEROL 160/4.5 MCG INHALER INH SCH (07:52)
[2016-08-01] MEDS: POLYETHYLENE GLYCOL 17 GM PKG PO SCH (07:52)
[2016-08-01] MEDS: TIOTROPIUM BROMIDE 18 MCG INH INH SCH (07:52)
[2016-08-01] MEDS: methylPREDNISolone SOD SUCC 125 MG/2 ML VIAL IV PUSH SCH (07:52)
[2016-08-01 08:00] VITALS: BP 143/68; PULSE 102; RESP 20; TEMP 98.5; O2SAT 94
[2016-08-01 08:02] LABS: BANDS 3 % (0-6); METAMYELOCYTES 2 % (0-1); NEUTROPHIL # MANUAL DIFF 9.2 TH/MM3 (1.8-7.7); OVALOCYTES 1+ (NORMAL); PLATELET ESTIMATE SMEAR NORMAL (NORMAL); POLYS (SEG NEUTROPHILS) 90 % (16-70); WBC DIFF SAMPLE 100
[2016-08-01 08:03] LABS: PLATELET MORPHOLOGY ENLARGED (NORMAL); SCAN/DIFF FINAL DIFF MANUAL
[2016-08-01] MEDS: RESP: ACETYLCYSTEINE 10% 30 ML NEB NEB SCH (08:21)
[2016-08-01 08:24] VITALS: O2SAT 95
== END 2016-08-01 09:45 | disposition left against medical advice (07) | DRG 189 ==
LOC: NEPC 13:56 → NEDA 16:10 → HIME 20:45
PROVIDERS: ADMIT Internal Medicine; ATTEND Internal Medicine
PROC: 5A09457 Assistance with Respiratory Ventilation, 24-96 Consecutive Hours, Continuous Positive Airway Pressure (ICD-10-PCS; principal; 2016-07-30)
DX: J96.92 Respiratory failure, unspecified with hypercapnia (principal); E87.2 Acidosis; J44.1 Chronic obstructive pulmonary disease with (acute) exacerbation; Z68.41 Body mass index [BMI] 40.0-44.9, adult; I11.0 Hypertensive heart disease with heart failure; I50.9 Heart failure, unspecified; E11.9 Type 2 diabetes mellitus without complications; D50.9 Iron deficiency anemia, unspecified; E66.01 Morbid (severe) obesity due to excess calories; K59.00 Constipation, unspecified; J45.909 Unspecified asthma, uncomplicated; K21.9 Gastro-esophageal reflux disease without esophagitis; F32.9 Major depressive disorder, single episode, unspecified; I25.10 Atherosclerotic heart disease of native coronary artery without angina pectoris; G47.33 Obstructive sleep apnea (adult) (pediatric); F10.10 Alcohol abuse, uncomplicated; F17.210 Nicotine dependence, cigarettes, uncomplicated; Z79.4 Long term (current) use of insulin; Z91.19 Patient's noncompliance with other medical treatment and regimen; Z99.81 Dependence on supplemental oxygen
CPT/HCPCS: 36600; 71010; 74000; 80048; 80053; 81001; 82550; 82805; 82948; 83605; 83735; 83880; 84100; 84484; 85007; 85025; 85027; 87040; 87641; 93005; 94002; 94003; 94640; 94664; 96374; 96375; C9113; J0131; J0780; J1200; J1644; J1956; J2930; J7030; J7608

== ENCOUNTER 2016-08-19 13:27 | Inpatient (IN) | payer OTHER ==
[~2016-08-19] VITALS: Ht 177.8 cm; Wt 128.0 kg
[~2016-08-19 13:27] MED LIST changes: -ATOR40TA16 PO; +IPRASOL NEB; -ISOS30TA3 PO; +LYRI50CA PO; -[UNRECOGNIZED DRUG - CODE] PO
[2016-08-19 13:31] VITALS: BP 153/69; PULSE 118; RESP 36; TEMP 98; O2SAT 82
--- NOTE | 2016-08-19 13:37 | PD ---
Physical Exam Date Seen by Provider: August 19, 2016 Time Seen by Provider: 13:36 Narrative 56 year old male presents to the emergency department for evaluation of bilateral leg swelling. He reports shortness of breath which is at baseline. He reports history of CHF, DM, COPD. Patient is tachycardic with oxygen saturation of 82%. Patient normally wears 2L O2 NC at home, not wearing at this time. Patient seen in triage, will be taken to bed in medical pod. Data Data Last Documented VS Vital Signs Date Time Temp Pulse Resp B/P Pulse Ox O2 Delivery O2 Flow Rate FiO2 08/19/16 13:31 98.0 118 36 153/69 82 Room Air [facility] Supervised Visit with MERON: Marita Jensen August 19, 2016 13:37
[2016-08-19 13:56] LABS: MEAN CORPUSCULAR HGB CONC 28.5 % (32.0-36.0)
[2016-08-19] MEDS ORDERED: SODIUM CHLORIDE 0.9% FLUSH 10 ML FLUSH IVF PRN (14:00)
[2016-08-19] MEDS ORDERED: FUROSEMIDE 100 MG/10 ML VIAL IV PUSH ONE (14:00)
--- NOTE | 2016-08-19 14:00 | PD ---
HPI Chief Complaint: Edema Time Seen by Provider: 13:58 Travel History International Travel<30 days: No Contact w/Intl Traveler<30days: No Traveled to known affect area: No History of Present Illness HPI Patient's 56-year-old male presents with a chief complaint of bilateral lower extremity pain. Patient states his legs been gradually getting more swollen over the past 4 days. Denies any fever. He does have a significant complaint of some mild shortness of breath. He does state he has COPD and is on 2 L of oxygen at home. He is room air saturation on arrival was 82%. He denies any chest pain. He denies any abdominal pain nausea or vomiting. He states is also swollen and his abdomen and was told that when this happened in the past it would make him hard to breathe. He's never had to have any fluid draining from his abdomen before. PFSH Past Medical History Arthritis: No Asthma: Yes Autoimmune Disease: No Anxiety: No Depression: No Heart Rhythm Problems: No Cancer: No Cardiac Catheterization: No Cardiovascular Problems: Yes Chest Pain: Yes Congestive Heart Failure: No COPD: Yes Cerebrovascular Accident: No Coronary Artery Disease: No Diabetes: Yes Diminished Hearing: No Endocrine: Yes Gastrointestinal Disorders: Yes GERD: Yes Genitourinary: No Headaches: No Hiatal Hernia: No Hypertension: No Immune Disorder: No Implanted Vascular Access Dvce: No Musculoskeletal: Yes Neurologic: Yes Psychiatric: No Reproductive: No Respiratory: Yes Migraines: No Seizures: Yes Thyroid Disease: No Ulcer: No Past Surgical History Abdominal Surgery: No Coronary Artery Bypass Graft: No Other Surgery: Yes (wart removed right leg) Social History Alcohol Use: No (STATES QUIT 1 MONTH AGO) Tobacco Use: Yes (1.5 ppd) Substance Use: No Allergies-Medications (Allergen,Severity, Reaction): Coded Allergies: No Known Allergies (Verified , 08/19/16) Reported Meds & Prescriptions Reported Meds & Active Scripts Active Trazodone (Trazodone HCl) 50 Mg Tab 50 Mg PO HS 90 Days Aldactone (Spironolactone) 25 Mg Tab 25 Mg PO BID@,18 90 Days Senna Plus 8.6-50 mg (Sennosides-Docusate Sodium) 1 Tab Tab 1 Tab PO BID 90 Days Reported Lantus Solostar Pen Inj (Insulin Glargine) 300 Unit/3 Ml Pen 30 Units SQ BID Lyrica (Pregabalin) 50 Mg Cap 50 Mg PO TID PRN Duoneb (Ipratropium-Albuterol Neb) 0.5-2.5 Mg/3 Ml Neb 3 Ml NEB QID PRN Hydralazine (Hydralazine HCl) 25 Mg Tab 25 Mg PO TID Take with a meal Gabapentin 300 Mg Cap 300 Mg PO DAILY Furosemide 40 Mg Tab 40 Mg PO DAILY Tramadol (Tramadol HCl) 50 Mg Tab 50 Mg PO BID PRN Spiriva Handihaler (Tiotropium Inh) 18 Mcg Cap 18 Mcg INH DAILY 1 capsule = 18 mcg Potassium Chloride ER (Potassium Chloride) 10 Meq Tab 10 Meq PO BID Folate (Folic Acid) 1 Mg Tab 1 Mg PO DAILY Docusate Sodium 100 Mg Cap 100 Mg PO BID Bupropion HCl 100 Mg Tab 100 Mg PO BID Review of Systems Except as stated in HPI: all other systems reviewed are Neg Physical Exam Narrative GENERAL: Well-developed well-nourished appears mildly short of breath. SKIN: Focused skin assessment warm/dry. HEAD: Atraumatic. Normocephalic. EYES: Pupils equal and round. No scleral icterus. No injection or drainage. ENT: No nasal bleeding or discharge. Mucous membranes pink and moist. NECK: Trachea midline. No JVD. CARDIOVASCULAR: Tachycardia with regular rhythm. No murmur appreciated. 2+ bilateral equal pulses in all 4 extremity's. RESPIRATORY: No accessory muscle use. Clear to auscultation. Breath sounds equal bilaterally. Sitting upright in a tripod position. GASTROINTESTINAL: Abdomen soft, non-tender, nondistended. Hepatic and splenic margins not palpable. MUSCULOSKELETAL: No obvious deformities. No clubbing. No cyanosis. Patient has 2+ edema from his hips distally, there is also some edema on the abdominal wall. NEUROLOGICAL: Awake and alert. No obvious cranial nerve deficits. Motor grossly within normal limits. Normal speech. PSYCHIATRIC: Appropriate mood and affect; insight and judgment normal. Data Data Last Documented VS Vital Signs Date Time Temp Pulse Resp B/P Pulse Ox O2 Delivery O2 Flow Rate FiO2 08/19/16 13:45 93 Nasal Cannula 2 08/19/16 13:31 98.0 118 36 153/69 Orders B-Type Natriuretic Peptide (08/19/16 13:53) Ckmb (Isoenzyme) Profile (08/19/16 13:53) Complete Blood Count With Diff (08/19/16 13:53) Comprehensive Metabolic Panel (08/19/16 13:53) Magnesium (Mg) (08/19/16 13:53) Prothrombin Time / Inr (Pt) (08/19/16 13:53) Act Partial Throm Time (Ptt) (08/19/16 13:53) Troponin I (08/19/16 13:53) Chest, Single Ap (08/19/16 13:53) Ecg Monitoring (08/19/16 13:53) Iv Access Insert/Monitor (08/19/16 13:53) Oximetry (08/19/16 13:53) Oxygen Administration (08/19/16 13:53) Sodium Chloride 0.9% Flush (Ns Flush) (08/19/16 14:00) Furosemide Inj (Lasix Inj) (08/19/16 14:00) Arterial Blood Gas (Abg) (08/19/16 ) Oxycodone-Acetamin 5-325 Mg (Percocet (08/19/16 16:00) Ct Pulmonary Angiogram (08/19/16 ) Ct Abd/Pel W Iv Contrast(Rout) (08/19/16 ) Admit Order (Ed Use Only) (08/19/16 ) Labs Laboratory Tests Test 08/19/16 08/19/16 14:00 14:20 Blood Gas Puncture Site RT RADIAL Blood Gas Patient Temperature 98.6 Blood Gas HCO3 34 mmol/L Blood Gas Base Excess 8.5 mmol/L Blood Gas Oxygen Saturation 86 % Arterial Blood pH 7.36 Arterial Blood Partial 62 mmHg Pressure CO2 Arterial Blood Partial 63 mmHG Pressure O2 Arterial Blood Oxygen Content 11.4 Vol % Arterial Blood 6.2 % Carboxyhemoglobin Arterial Blood Methemoglobin 0.6 % Blood Gas Hemoglobin 9.4 G/DL Oxygen Delivery Device NASAL CANNULA Blood Gas Liter Flow 2 L/M White Blood Count 9.1 TH/MM3 Red Blood Count 5.30 MIL/MM3 Hemoglobin 9.8 GM/DL Hematocrit 34.3 % Mean Corpuscular Volume 64.8 FL Mean Corpuscular Hemoglobin 18.5 PG Mean Corpuscular Hemoglobin 28.5 % Concent Red Cell Distribution Width 22.0 % Platelet Count 354 TH/MM3 Mean Platelet Volume 8.7 FL Neutrophils (%) (Auto) 68.8 % Lymphocytes (%) (Auto) 17.2 % Monocytes (%) (Auto) 10.9 % Eosinophils (%) (Auto) 2.3 % Basophils (%) (Auto) 0.8 % Neutrophils # (Auto) 6.3 TH/MM3 Lymphocytes # (Auto) 1.6 TH/MM3 Monocytes # (Auto) 1.0 TH/MM3 Eosinophils # (Auto) 0.2 TH/MM3 Basophils # (Auto) 0.1 TH/MM3 CBC Comment AUTO DIFF Differential Comment AUTO DIFF CONFIRMED Platelet Estimate NORMAL Platelet Morphology Comment ENLARGED Polychromasia 2.0 % Ovalocytes 1+ Keratocytes OCC Prothrombin Time 10.7 SEC Prothromb Time International 1.0 RATIO Ratio Activated Partial 23.3 SEC Thromboplast Time Sodium Level 135 MEQ/L Potassium Level 4.4 MEQ/L Chloride Level 93 MEQ/L Carbon Dioxide Level 36.7 MEQ/L Anion Gap 5 MEQ/L Blood Urea Nitrogen 13 MG/DL Creatinine 1.17 MG/DL Estimat Glomerular Filtration 65 ML/MIN Rate Random Glucose 291 MG/DL Calcium Level 9.2 MG/DL Magnesium Level 1.9 MG/DL Total Bilirubin 0.5 MG/DL Aspartate Amino Transf 12 U/L (AST/SGOT) Alanine Aminotransferase 16 U/L (ALT/SGPT) Alkaline Phosphatase 135 U/L Total Creatine Kinase 27 U/L Troponin I LESS THAN 0.02 NG/ML B-Type Natriuretic Peptide 203 PG/ML Total Protein 7.1 GM/DL Albumin 3.6 GM/DL [facility] Medical Decision Making Medical Screen Exam Complete: Yes Emergency Medical Condition: Yes Differential Diagnosis Anasarca, CHF, COPD, hypoxic respiratory failure. Narrative Course Patient was roomed in the emergency department, initially placed on 2 L nasal cannula is maintain his saturation at or just below 90%. He was then administered 4 L by nasal cannula and is maintaining sats about 94%. He is anasarcous. Patient initial workup including an EKG troponin electrolytes and chest x-ray are fairly benign. He does have some elevation in BNP. Patient was discussed with Dr. Abreu who requests that a CT pulmonary angiogram be performed. To this and will add a CT abdomen to look for any vascular obstructing lesions. Patient will be admitted. He was given 80 mg Lasix and began to diurese well. He was also given some pain medicine for his legs. Discussed with the patient admission criteria and he is agreeable. Last 24 hours Impressions Chest X-Ray 5/6/17 1353 Signed Impressions: Service Date/Time: Friday, August 19, 2016 14:06 - CONCLUSION: 1. Cardiomegaly. 2. Chronic interstitial changes. 3. Stable compared to previous. Flavio Pablo MD CT Angiography 08/19/16 0000 Signed Impressions: Service Date/Time: Friday, August 19, 2016 17:35 - CONCLUSION: 1. Negative for pulmonary embolus. Mild basilar atelectasis. Mild emphysema. Jaime Amaya MD Abdomen/Pelvis CT 08/19/16 0000 Signed Impressions: Service Date/Time: Friday, August 19, 2016 17:35 - CONCLUSION: 1. No acute findings. Specifically no bowel obstruction. Mild anasarca. No free fluid. Jiame Amaya MD Diagnosis Primary Impression: Acute hypercapnic respiratory failure Additional Impression: Anasarca Admitting Information Admitting Physician Requests: Observation Condition: Stable Juan Carlos Ewing MD August 19, 2016 14:00
[2016-08-19 14:09] LABS: BLOOD GAS BASE EXCESS 8.5 mmol/L (-2-2); BLOOD GAS CARBOXYHEMOGLOBIN 6.2 % (0-4); BLOOD GAS HCO3 34 mmol/L (22-26); BLOOD GAS METHEMOGLOBIN 0.6 % (0-2); BLOOD GAS O2 HGB SATURATION 86 % (90-100); BLOOD GAS OXYGEN CONTENT 11.4 Vol % (12.0-20.0); BLOOD GAS PCO2 62 mmHg (38-42); BLOOD GAS PO2 63 mmHG (61-120); BLOOD GAS TOTAL HGB 9.4 G/DL (12.0-16.0); CRITICAL VALUE YES; TEMP CORR TO 98.6
[2016-08-19 14:10] LABS: DRAW SITE RT RADIAL; LITER FLOW 2 L/M; NUMBER OF ARTERIAL PUNCTURES 1; OXYGEN DEVICE NASAL CANNULA; STAT YES; ULNAR PULSE PRESENT
--- NOTE | 2016-08-19 14:19 | RADRPT ---
EXAM DATE/TIME: 08/19/2016 14:06 [place] COMPARISON: CHEST SINGLE AP, July 30, 2016, 14:25. ABDOMEN UPRIGHT ONLY, July 30, 2016, 14:29. INDICATIONS : Shortness of breath. MEDICAL HISTORY : Chronic obstructive pulmonary disease. Smoker. Emphysema. Asthma. SURGICAL HISTORY : None. ENCOUNTER: Initial ACUITY: 1 day PAIN SCORE: 0/10 LOCATION: Bilateral chest FINDINGS: The heart is enlarged. There are chronic interstitial changes within the pulmonary parenchyma. The bhaskar ngs are otherwise clear. The visualized bony structures are grossly intact. CONCLUSION: 1. Cardiomegaly. 2. Chronic interstitial changes. 3. Stable compared to previous. Flavio Pablo MD on August 19, 2016 at 14:16 Board Certified Radiologist. This report was verified electronically.
[2016-08-19 14:35] LABS: AUTOMATED NEUTROPHIL # 6.3 TH/MM3 (1.8-7.7); BASOPHIL # 0.1 TH/MM3 (0-0.2); BASOPHIL % 0.8 % (0.0-2.0); EOSINOPHIL # 0.2 TH/MM3 (0-0.4); EOSINOPHIL % 2.3 % (0.0-4.0); HEMATOCRIT 34.3 % (39.0-51.0); LYMPH % 17.2 % (9.0-44.0); LYMPHOCYTE # 1.6 TH/MM3 (1.0-4.8); MEAN CELL VOLUME 64.8 FL (80.0-100.0); MEAN CORPUSCULAR HEMOGLOBIN 18.5 PG (27.0-34.0); MONO % 10.9 % (0.0-8.0); NEUT % 68.8 % (16.0-70.0); PLATELET COUNT 354 TH/MM3 (150-450); WHITE BLOOD COUNT 9.1 TH/MM3 (4.0-11.0)
[2016-08-19 14:39] LABS: HEMO FLAGS AUTO DIFF
[2016-08-19 14:43] LABS: APTT (PATIENT) 23.3 SEC (24.3-30.1); PROTHROMBIN TIME - PATIENT 10.7 SEC (9.8-11.6)
[2016-08-19 14:52] LABS: ANION GAP 5 MEQ/L (5-15); AST (GOT) 12 U/L (15-37); BICARBONATE 36.7 MEQ/L (21.0-32.0); BLOOD UREA NITROGEN 13 MG/DL (7-18); CHLORIDE 93 MEQ/L (98-107); GLOMERULAR FILTRATION RATE 65 ML/MIN (>89); MAGNESIUM 1.9 MG/DL (1.5-2.5); POTASSIUM 4.4 MEQ/L (3.5-5.1); SODIUM (NA) 135 MEQ/L (136-145)
[2016-08-19] MEDS ORDERED: LANTINJ SQ (14:56)
[2016-08-19 14:57] LABS: ALKALINE PHOSPHATASE 135 U/L (45-117); ALT (GPT) 16 U/L (12-78); TOTAL BILIRUBIN ADULT 0.5 MG/DL (0.2-1.0)
[2016-08-19 15:08] LABS: CREATINE KINASE 27 U/L (39-308)
[2016-08-19 15:09] LABS: KERATOCYTES OCC (NORMAL); OVALOCYTES 1+ (NORMAL); PLATELET ESTIMATE SMEAR NORMAL (NORMAL); PLATELET MORPHOLOGY ENLARGED (NORMAL)
[2016-08-19 15:11] LABS: SCAN/DIFF AUTO DIFF CONFIRMED
[2016-08-19] MEDS ORDERED: oxyCODONE/ACETAMINOPHEN 5 MG/325 MG TAB PO ONE (16:00)
[2016-08-19] MEDS ORDERED: SODIUM CHLORIDE 0.9% FLUSH 10 ML FLUSH IV FLUSH PRN (16:15)
[2016-08-19] MEDS ORDERED: NALOXONE HCL 0.4 MG/ML AMP IV PRN (16:15)
[2016-08-19] MEDS ORDERED: MAGNESIUM HYDROXIDE SUSP 30 ML CUP PO PRN (16:15)
[2016-08-19] MEDS ORDERED: ONDANSETRON HCL 4 MG/2 ML VIAL IVP PRN (16:15)
[2016-08-19] MEDS ORDERED: ACETAMINOPHEN 325 MG TAB PO PRN (16:15)
--- NOTE | 2016-08-19 16:51 | HHI.HP ---
HPI Service [facility] Hospitalists Primary Care Physician Jozef Gilliland MD Admission Diagnosis Anasarca, Acute on chronic hypoxic respiratory failure Diagnoses: Chief Complaint: Bilateral lower extremity swelling Abdominal swelling BLE pain Increased cough with brownish sputum production Travel History International Travel<30 Days: No Contact w/Intl Traveler <30 Da: No Traveled to Known Affected Are: No History of Present Illness This is a 56 yo male with past medical history of COPD, chronic respiratory failure on 2 L nasal cannula at home but patient presented without any oxygen, JEFF non CPAP compliant, HTN, diabetes, history of seizures, migraine headache and GERD who presents to [facility] ED with complaints of abdominal and bilateral lower extremity swelling over the past few days. Patient also states that his blood sugars have been up over 500 recently. He decided to come in today because of increasing pain in both legs and inability to walk. Patient denies any change in his baseline shortness of breath or cough. He does admit to frequent cough with brownish sputum production. Patient denies any fever, chills, nausea, vomiting or chest pain. He does report some periumbilical abdominal pain due to increased swelling. In the ED, patients oxygen saturation on RA was 82. CXR showed cardiomegaly, chronic interstitial changes and stable study compared to patient's previous chest x- ray obtained on 07/30/16. His BNP was 203. Blood glucose is 291. ABG shows O2 sat 86, pCO2 62, pO2 63 on 2L. Past Family Social History Past Medical History COPD HTN DM JEFF Seizures GERD Past Surgical History Cardiac catheterization 2014 Reported Medications Trazodone (Trazodone HCl) 50 Mg Tab 50 Mg PO HS 90 Days Aldactone (Spironolactone) 25 Mg Tab 25 Mg PO BID@09,18 90 Days Senna Plus 8.6-50 mg (Sennosides-Docusate Sodium) 1 Tab Tab 1 Tab PO BID 90 Days Lantus Solostar Pen Inj (Insulin Glargine) 300 Unit/3 Ml Pen 30 Units SQ BID Lyrica (Pregabalin) 50 Mg Cap 50 Mg PO TID PRN Duoneb (Ipratropium-Albuterol Neb) 0.5-2.5 Mg/3 Ml Neb 3 Ml NEB QID PRN Hydralazine (Hydralazine HCl) 25 Mg Tab 25 Mg PO TID Take with a meal Gabapentin 300 Mg Cap 300 Mg PO DAILY Furosemide 40 Mg Tab 40 Mg PO DAILY Tramadol (Tramadol HCl) 50 Mg Tab 50 Mg PO BID PRN Spiriva Handihaler (Tiotropium Inh) 18 Mcg Cap 18 Mcg INH DAILY 1 capsule = 18 mcg Potassium Chloride ER (Potassium Chloride) 10 Meq Tab 10 Meq PO BID Folate (Folic Acid) 1 Mg Tab 1 Mg PO DAILY Docusate Sodium 100 Mg Cap 100 Mg PO BID Bupropion HCl 100 Mg Tab 100 Mg PO BID Allergies: Coded Allergies: No Known Allergies (Verified , 08/19/16) Active Ordered Medications Current Medications Medications (Trade) Dose Ordered Sig/Whit Route Start Time Stop Time Status Last Admin (NS Flush) 2 ml UNSCH PRN IV FLUSH 08/19/16 16:15 (NS Flush) 2 ml BID IV FLUSH 08/19/16 21:00 (Tylenol) 650 mg Q4H PRN PO 08/19/16 16:15 (Zofran Inj) 4 mg Q6H PRN IVP 08/19/16 16:15 (Milk Of Magnesia Liq) 30 ml Q12H PRN PO 08/19/16 16:15 (Lovenox Inj) 40 mg Q24H SQ 08/19/16 16:30 (Narcan Inj) 0.4 mg UNSCH PRN IV 08/19/16 16:15 Family History Father, age 27, liver cirrhosis Mother, , old age Cancer Social History (+)tobacco use 1 1/2 ppd No EtOH use No illicit drug use Physical Exam Vital Signs Vital Signs Date Time Temp Pulse Resp B/P Pulse Ox O2 Delivery O2 Flow Rate FiO2 08/19/16 13:31 98.0 118 36 153/69 82 Room Air Physical Exam GENERAL: This is a well-nourished, well-developed patient, in no apparent distress. Awake and alert. Pleasant and cooperative. On 2LNC. SKIN: No rashes, ecchymoses or lesions. Cool and dry. HEAD: Atraumatic. Normocephalic. No temporal or scalp tenderness. EYES: Pupils equal round and reactive. Extraocular motions intact. No scleral icterus. No injection or drainage. ENT: Nose without bleeding, purulent drainage or septal hematoma. Throat without erythema, tonsillar hypertrophy or exudate. Uvula midline. Airway patent. NECK: Trachea midline. No JVD or lymphadenopathy. Supple, nontender, no meningeal signs. CARDIOVASCULAR: Tachycardic. No murmurs, gallops, or rubs. RESPIRATORY: Clear to auscultation. Diminished BS t/o. No wheezes, rales, or rhonchi. GASTROINTESTINAL: Abdomen soft, non-tender, nondistended. No hepato-splenomegaly , or palpable masses. No guarding. MUSCULOSKELETAL: Extremities without clubbing or cyanosis. 2+ edema bilateral lower extremities. No joint tenderness, effusion, or edema noted. No calf tenderness. NEUROLOGICAL: Awake and alert. Able to move all extremities. No focal neurologic findings appreciated. Normal speech. Laboratory Laboratory Tests Test 08/19/16 08/19/16 14:00 14:20 Blood Gas Puncture Site RT RADIAL Blood Gas Patient Temperature 98.6 Blood Gas HCO3 34 Blood Gas Base Excess 8.5 Blood Gas Oxygen Saturation 86 Arterial Blood pH 7.36 Arterial Blood Partial 62 Pressure CO2 Arterial Blood Partial 63 Pressure O2 Arterial Blood Oxygen Content 11.4 Arterial Blood 6.2 Carboxyhemoglobin Arterial Blood Methemoglobin 0.6 Blood Gas Hemoglobin 9.4 Oxygen Delivery Device NASAL CANNULA Blood Gas Liter Flow 2 White Blood Count 9.1 Red Blood Count 5.30 Hemoglobin 9.8 Hematocrit 34.3 Mean Corpuscular Volume 64.8 Mean Corpuscular Hemoglobin 18.5 Mean Corpuscular Hemoglobin 28.5 Concent Red Cell Distribution Width 22.0 Platelet Count 354 Mean Platelet Volume 8.7 Neutrophils (%) (Auto) 68.8 Lymphocytes (%) (Auto) 17.2 Monocytes (%) (Auto) 10.9 Eosinophils (%) (Auto) 2.3 Basophils (%) (Auto) 0.8 Neutrophils # (Auto) 6.3 Lymphocytes # (Auto) 1.6 Monocytes # (Auto) 1.0 Eosinophils # (Auto) 0.2 Basophils # (Auto) 0.1 CBC Comment AUTO DIFF Differential Comment AUTO DIFF CONFIRMED Platelet Estimate NORMAL Platelet Morphology Comment ENLARGED Polychromasia 2.0 Ovalocytes 1+ Keratocytes OCC Prothrombin Time 10.7 Prothromb Time International 1.0 Ratio Activated Partial 23.3 Thromboplast Time Sodium Level 135 Potassium Level 4.4 Chloride Level 93 Carbon Dioxide Level 36.7 Anion Gap 5 Blood Urea Nitrogen 13 Creatinine 1.17 Estimat Glomerular Filtration 65 Rate Random Glucose 291 Calcium Level 9.2 Magnesium Level 1.9 Total Bilirubin 0.5 Aspartate Amino Transf 12 (AST/SGOT) Alanine Aminotransferase 16 (ALT/SGPT) Alkaline Phosphatase 135 Total Creatine Kinase 27 Troponin I LESS THAN 0.02 B-Type Natriuretic Peptide 203 Total Protein 7.1 Albumin 3.6 Result Diagram: 08/19/16 1420 08/19/16 1420 Imaging Last Impressions Chest X-Ray 08/19/16 1353 Signed Impressions: Service Date/Time: Friday, August 19, 2016 14:06 - CONCLUSION: 1. Cardiomegaly. 2. Chronic interstitial changes. 3. Stable compared to previous. Flavio Pablo MD Assessment and Plan Assessment and Plan 56 yo male with past medical history of COPD, chronic respiratory failure on 2 L nasal cannula at home but patient presented without any oxygen, JEFF non CPAP compliant, HTN, diabetes, history of seizures, migraine headache and GERD who presents to [facility] ED with complaints of abdominal and bilateral lower extremity swelling over the past few days. Acute hypoxic respiratory failure Chronic respiratory failure Follow up on CTA and CT abd/pelvis as ordered in the ED Supplemental oxygen monitor on telemetry Duonebs scheduled Resume home bronchodilator therapy Anasarca Patient given 80mg IV Lasix in ED Continue with IV Lasix 40mg BID - start tomorrow am CXR done in ED, images reviewed by me, cardiomegaly and chronic interstitial changes noted Echocardiogram ordered Resume home Aldactone BNP 203 strict I&Os monitor electrolytes HTN Resume home antihypertensive Monitor BP Adjust treatment as indicated Diabetes mellitus Blood sugar 291 Diabetic diet ISS Accuchecks Levemir 20u sq qhs with 5u Novolog TIDAC Obtain A1c JEFF non CPAP compliant due to claustrophobia and ?pain as reported by patient Hyponatremia Mild likely due to hypervolemia am labs to monitor DVT prophylaxis Lovenox 40mg sq Written by Marianna Lima PA-C acting as scribe for Dr. Abreu on 08/19/16 at 16 :45. This note was transcribed by scribe Marianna Lima PA-C. I, Dr. Fran Abreu personally performed the history, physical exam, and medical decision making; and confirmed the accuracy of the information in the transcribed note. Authenticated by Dr. Fran Abreu on 08/19/16 at 23:45. Discussed Condition With patient, nursing staff and ED physician Physician Certification 2 Midnight Certification Type: Admission for Inpatient Services Order for Inpatient Services The services are ordered in accordance with Medicare regulations or non- Medicare payer requirements, as applicable. In the case of services not specified as inpatient-only, they are appropriately provided as inpatient services in accordance with the 2-midnight benchmark. Estimated LOS (days): 2 days is the estimated time the patient will need to remain in the hospital, assuming treatment plan goals are met and no additional complications. Post-Hospital Plan: Home Marianna Lima August 19, 2016 16:51 Adi Abreu DO August 19, 2016 23:46
[2016-08-19] MEDS ORDERED: GLUCAGON 1 MG/ML VIAL OTHER PRN (17:15)
[2016-08-19] MEDS ORDERED: traMADol HCL 50 MG TAB PO PRN (17:15)
[2016-08-19] MEDS ORDERED: DEXTROSE 50% IN WATER 50 ML VIAL(D50) IV PUSH PRN (17:15)
[2016-08-19] MEDS ORDERED: IOHEXOL 350 MG/ML 10 ML VIAL (for RAD DIAG) IV ONE (17:43)
--- NOTE | 2016-08-19 18:34 | RADRPT ---
EXAM DATE/TIME: 08/19/2016 17:35 [facility] COMPARISON: CT PULMONARY ANGIOGRAM, February 09, 2016, 14:08. INDICATIONS : Shortness of breath and bilateral lower extemity edema. IV CONTRAST: 87 cc Omnipaque 350 (iohexol) IV ; Cumulative dose for multiple exams. RADIATION DOSE: 23.38 CTDIvol (mGy) MEDICAL HISTORY : Chronic obstructive pulmonary disease. diabetes SURGICAL HISTORY : None. ENCOUNTER: Initial ACUITY: 1 day PAIN SCALE: 0/10 LOCATION: Bilateral chest TECHNIQUE: Volumetric scanning of the chest was performed using a pulmonary embolism protocol MIP images were re constructed. Using automated exposure control and adjustment of the mA and/or kV according to patien t size, radiation dose was kept as low as reasonably achievable to obtain optimal diagnostic quality images. FINDINGS: No filling defects identified to suggest pulmonary embolic disease. There is subsegmental atelectasis at both lung bases. No significant effusion. No adenopathy. No pericardial effusion. Mild coronary c alcifications. No acute findings in the upper abdomen. CONCLUSION: 1. Negative for pulmonary embolus. Mild basilar atelectasis. Mild emphysema. Jaime Amaya MD on August 19, 2016 at 18:27 Board Certified Radiologist. This report was verified electronically.
--- NOTE | 2016-08-19 18:38 | RADRPT ---
EXAM DATE/TIME: 08/19/2016 17:35 [facility] COMPARISON: No previous studies available for comparison. INDICATIONS : Evaluate for obstruction IV CONTRAST: 87 cc Omnipaque 350 (iohexol) IV ; Cumulative dose for multiple exams. ORAL CONTRAST: No oral contrast ingested. RADIATION DOSE: 16.68 CTDIvol (mGy) MEDICAL HISTORY : Chronic obstructive pulmonary disease. diabetes SURGICAL HISTORY : None. ENCOUNTER: Initial ACUITY: 1 day PAIN SCALE: 0/10 LOCATION: Bilateral abdomen TECHNIQUE: Volumetric scanning of the abdomen and pelvis was performed. Using automated exposure control and ad justment of the mA and/or kV according to patient size, radiation dose was kept as low as reasonably achievable to obtain optimal diagnostic quality images. FINDINGS: There is no and atelectasis at the lung bases. No acute findings in the liver, spleen, adrenals or pancreas. No calcified gallstones. A probable duo denal diverticulum noted. Small bilateral renal cysts. There is no free fluid. No bowel obstruction. No adenopathy. Mild anasarca. CONCLUSION: 1. No acute findings. Specifically no bowel obstruction. Mild anasarca. No free fluid. Jaime Amaya MD on August 19, 2016 at 18:32 Board Certified Radiologist. This report was verified electronically.
[2016-08-19] MEDS: RESP: ALBUTEROL 2.5 MG/IPRATROPIUM 0.5 MG NEB (SCH) NEB (19:19)
[2016-08-19 19:30] VITALS: BP 169/83; PULSE 108; RESP 28; TEMP 98.6; O2SAT 93
[2016-08-19] MEDS: ENOXAPARIN SODIUM 40 MG/0.4 ML SYRINGE SQ SCH (19:50)
[2016-08-19] MEDS ORDERED: INSULIN DETEMIR 100 UNITS/ML VIAL SQ SCH (21:00)
[2016-08-19] MEDS: buPROPion HCL 100 MG TAB PO SCH (21:00)
[2016-08-19 21:04] LABS: MEAN CORPUSCULAR HGB CONC 29.2 % (32.0-36.0)
[2016-08-19] MEDS: INSULIN ASPART SUPPLEMENTAL SCALE SQ SCH (21:08)
[2016-08-19] MEDS: SODIUM CHLORIDE 0.9% FLUSH 10 ML FLUSH IV FLUSH SCH (21:09)
[2016-08-19] MEDS: SPIRONOLACTONE 25 MG TAB PO SCH (21:09)
[2016-08-19] MEDS: traZODone HCL 50 MG TAB PO SCH (21:09)
[2016-08-19] MEDS: hydrALAZINE HCL 25 MG TAB PO SCH (21:09)
[2016-08-19 21:15] VITALS: BP 159/84; PULSE 108; RESP 20; TEMP 97.6; O2SAT 95
[2016-08-20] VITALS (10 sets, daily range): BP systolic 126–152; BP diastolic 58–91; PULSE 103–118; RESP 16–22; TEMP 97.2–98.6; O2SAT 91–96
[2016-08-20 02:51] LABS: TRANSFERRIN IRON PROFILE 398 MG/DL (200-360)
[2016-08-20] MEDS: RESP: ALBUTEROL 2.5 MG/IPRATROPIUM 0.5 MG NEB (PRN) NEB (04:31)
[2016-08-20] MEDS: INSULIN ASPART SUPPLEMENTAL SCALE SQ SCH ×4 (06:37→21:29)
[2016-08-20 07:32] LABS: AUTOMATED NEUTROPHIL # 5.8 TH/MM3 (1.8-7.7); BASOPHIL # 0.1 TH/MM3 (0-0.2); BASOPHIL % 0.6 % (0.0-2.0); EOSINOPHIL # 0.2 TH/MM3 (0-0.4); EOSINOPHIL % 2.7 % (0.0-4.0); HEMATOCRIT 33.8 % (39.0-51.0); LYMPH % 16.4 % (9.0-44.0); LYMPHOCYTE # 1.3 TH/MM3 (1.0-4.8); MEAN CELL VOLUME 64.4 FL (80.0-100.0); MEAN CORPUSCULAR HEMOGLOBIN 18.8 PG (27.0-34.0); MONO % 9.5 % (0.0-8.0); NEUT % 70.8 % (16.0-70.0); PLATELET COUNT 345 TH/MM3 (150-450); RED BLOOD COUNT 5.25 MIL/MM3 (4.50-5.90); RED CELL DISTRIBUTION WIDTH 21.6 % (11.6-17.2); WHITE BLOOD COUNT 8.2 TH/MM3 (4.0-11.0)
[2016-08-20] MEDS: RESP: ALBUTEROL 2.5 MG/IPRATROPIUM 0.5 MG NEB (SCH) NEB ×4 (07:40→21:05)
[2016-08-20 07:45] LABS: HEMO FLAGS AUTO DIFF
[2016-08-20 07:58] LABS: ANION GAP 7 MEQ/L (5-15); BICARBONATE 38.9 MEQ/L (21.0-32.0); BLOOD UREA NITROGEN 16 MG/DL (7-18); CHLORIDE 89 MEQ/L (98-107); GLOMERULAR FILTRATION RATE 80 ML/MIN (>89); POTASSIUM 4.5 MEQ/L (3.5-5.1); SODIUM (NA) 135 MEQ/L (136-145)
[2016-08-20] MEDS: INSULIN ASPART 1,000 UNITS/10 ML VIAL SQ SCH ×4 (08:00→17:59)
[2016-08-20] MEDS: SODIUM CHLORIDE 0.9% FLUSH 10 ML FLUSH IV FLUSH SCH ×2 (09:00→21:27)
[2016-08-20 09:06] LABS: SCAN/DIFF AUTO DIFF CONFIRMED
[2016-08-20 09:52] LABS: HEMOGLOBIN A1a 1.8 %; HEMOGLOBIN A1b 2.5 %; HEMOGLOBIN Ao 79.1 %; HEMOGLOBIN P3 4.8 %
[2016-08-20] MEDS: ACETAMIN 325 MG/BUTALBITAL 50 MG/CAFFEINE 40 MG TAB PO PRN ×2 (09:55→23:33)
[2016-08-20] MEDS: SPIRONOLACTONE 25 MG TAB PO SCH ×2 (09:58→17:59)
[2016-08-20] MEDS: buPROPion HCL 100 MG TAB PO SCH ×2 (09:58→22:28)
[2016-08-20] MEDS: hydrALAZINE HCL 25 MG TAB PO SCH ×3 (09:58→18:00)
[2016-08-20] MEDS: FOLIC ACID 1 MG TAB PO SCH (09:58)
[2016-08-20] MEDS: FUROSEMIDE 40 MG/4 ML VIAL IV PUSH SCH ×2 (09:59→17:59)
[2016-08-20] MEDS: oxyCODONE/ACETAMINOPHEN 7.5 MG/325 MG TAB PO PRN ×2 (11:17→22:27)
--- NOTE | 2016-08-20 16:04 | HHI.PR ---
Subjective Remarks Follow-up for acute respiratory failure hypoxic, anasarca. Patient reports feeling much better. He can move his legs without much pain as he had before. No fever or chills. Objective Vitals Vital Signs Date Time Temp Pulse Resp B/P Pulse Ox O2 Delivery O2 Flow Rate FiO2 08/20/16 12:17 20 08/20/16 12:00 98.0 108 16 150/67 94 08/20/16 11:00 20 08/20/16 08:00 98.6 114 20 146/74 95 08/20/16 07:40 92 Nasal Cannula 4.00 08/20/16 04:36 92 Nasal Cannula 4.00 08/20/16 04:00 97.8 114 20 137/91 91 08/20/16 00:00 97.2 118 20 126/58 94 08/19/16 21:15 97.6 108 20 159/84 95 08/19/16 19:30 98.6 108 28 169/83 93 Nasal Cannula 4 I/O 08/19/16 08/19/16 08/19/16 08/20/16 08/20/16 08/20/16 07:00 15:00 23:00 07:00 15:00 23:00 Intake Total 480 ml 600 ml Output Total 3600 ml Balance -3120 ml 600 ml Intake Oral 480 ml 600 ml Output Urine Total 3600 ml # Voids 1 3 # Bowel Movements 0 0 Result Diagram: 08/20/16 0641 08/20/16 0641 Imaging Last Impressions Chest X-Ray 08/19/16 1353 Signed Impressions: Service Date/Time: Friday, August 19, 2016 14:06 - CONCLUSION: 1. Cardiomegaly. 2. Chronic interstitial changes. 3. Stable compared to previous. Flavio Pablo MD CT Angiography 08/19/16 0000 Signed Impressions: Service Date/Time: Friday, August 19, 2016 17:35 - CONCLUSION: 1. Negative for pulmonary embolus. Mild basilar atelectasis. Mild emphysema. Jaime Amaya MD Abdomen/Pelvis CT 08/19/16 0000 Signed Impressions: Service Date/Time: Friday, August 19, 2016 17:35 - CONCLUSION: 1. No acute findings. Specifically no bowel obstruction. Mild anasarca. No free fluid. Jaime Amaya MD Objective Remarks GENERAL: Alert, NAD. SKIN: Warm and dry. HEAD: Normocephalic. EYES: No scleral icterus. No injection or drainage. NECK: Supple, trachea midline. No JVD or lymphadenopathy. CARDIOVASCULAR: Regular rate and rhythm without murmurs, gallops, or rubs. RESPIRATORY: Poor air entry. Mild bibasilar crackles. GASTROINTESTINAL: Abdomen soft, non-tender, nondistended. MUSCULOSKELETAL: No cyanosis. 2+ edema bilateral lower ext and tender on palpation. BACK: Nontender without obvious deformity. No CVA tenderness. Procedures None A/P Assessment and Plan 56 yo male with past medical history of COPD, chronic respiratory failure on 2 L nasal cannula at home but patient presented without any oxygen, JEFF non CPAP compliant, HTN, diabetes, history of seizures, migraine headache and GERD who presents to [facility] ED with complaints of abdominal and bilateral lower extremity swelling over the past few days. Acute hypoxic respiratory failure Chronic respiratory failure CT PE study and CT abd/pelvis does not show any significant Supplemental oxygen to keep O2 sat > 90%. Duonebs scheduled Anasarca - Albumin 3.6. Probable CHF exacerbation Patient given 80mg IV Lasix in ED Continue with IV Lasix 40mg BID CXR done in ED, images reviewed by me on 08/19/2016, cardiomegaly and chronic interstitial changes noted Echocardiogram ordered. Previous Echo was not a good study. It would be useful to have an echo done. Resume home Aldactone 25mg BID. BNP 203 which maybe artificially low due to body habitus. strict I&Os monitor electrolytes. Albumin level 3.6. HTN Continue Hydralazine 10mg TID. Diabetes mellitus Continue Levemir, increased dose from 20 units QHS to 25 units QHS. Add aspart 7 units 3 times a day before meals. Continue sliding scale insulin. JEFF - non CPAP compliant due to claustrophobia Full code. Lovenox. Adi Abreu DO August 20, 2016 4:04 pm
[2016-08-20] MEDS: ENOXAPARIN SODIUM 40 MG/0.4 ML SYRINGE SQ SCH (17:58)
[2016-08-20] MEDS: traZODone HCL 50 MG TAB PO SCH (21:00)
[2016-08-20] MEDS: INSULIN DETEMIR 100 UNITS/ML VIAL SQ SCH (21:28)
[2016-08-21] VITALS (10 sets, daily range): BP systolic 127–153; BP diastolic 65–79; PULSE 97–117; RESP 20–22; TEMP 97.4–101.4; O2SAT 90–94
[2016-08-21] MEDS: RESP: ALBUTEROL 2.5 MG/IPRATROPIUM 0.5 MG NEB (PRN) NEB (04:57)
[2016-08-21] MEDS: oxyCODONE/ACETAMINOPHEN 7.5 MG/325 MG TAB PO PRN ×4 (05:21→23:44)
[2016-08-21] MEDS: INSULIN ASPART SUPPLEMENTAL SCALE SQ SCH ×4 (06:32→20:55)
[2016-08-21] MEDS: ACETAMIN 325 MG/BUTALBITAL 50 MG/CAFFEINE 40 MG TAB PO PRN ×3 (07:09→22:57)
--- NOTE | 2016-08-21 08:17 | HHI.FPPN ---
Subjective Remarks unable to lay flat c/o severe congestion and SOB wants to dc but willing to stay tonight pt threatening to dc AMA Objective Vitals Vital Signs Date Time Temp Pulse Resp B/P Pulse Ox O2 Delivery O2 Flow Rate FiO2 08/21/16 08:00 99.2 101 20 153/70 94 08/21/16 07:53 Nasal Cannula 4.00 08/21/16 04:00 98.3 117 22 152/76 93 08/21/16 00:00 101.4 115 22 129/65 92 08/20/16 21:05 92 Nasal Cannula 4.00 08/20/16 20:00 98.2 116 22 152/83 94 08/20/16 19:28 Nasal Cannula 4.00 08/20/16 16:00 97.9 103 20 133/87 96 08/20/16 12:17 20 08/20/16 12:00 98.0 108 16 150/67 94 08/20/16 11:00 20 I/O 08/20/16 08/20/16 08/20/16 08/21/16 08/21/16 08/21/16 06:59 14:59 22:59 06:59 14:59 22:59 Intake Total 600 ml 1440 ml 240 ml 1080 ml Balance 600 ml 1440 ml 240 ml 1080 ml Intake Oral 600 ml 1440 ml 240 ml 1080 ml # Voids 3 1 2 # Bowel Movements 0 1 Result Diagram: 08/20/16 0641 08/20/16 06 Objective Remarks GENERAL: SKIN: Warm and dry. HEAD: Atraumatic. Normocephalic. EYES: Pupils equal and round. No scleral icterus. No injection or drainage. ENT: No nasal bleeding or discharge. Mucous membranes pink and moist. NECK: Trachea midline. No JVD. CARDIOVASCULAR: Regular rate and rhythm. RESPIRATORY: +accessory muscle use. tight, distant BS's. harsh congested cough. wheezing on I/E GASTROINTESTINAL: Abdomen soft, non-tender, nondistended. Hepatic and splenic margins not palpable. MUSCULOSKELETAL: 3 plus BLE's NEUROLOGICAL: Awake and alert. No obvious cranial nerve deficits. Motor grossly within normal limits. 3 out of 5 muscle strength in the arms and legs. Normal speech. PSYCHIATRIC: Appropriate mood and affect; insight and judgment normal. Medications and IVs Current Medications Medications (Trade) Dose Ordered Sig/Whit Route Start Time Stop Time Status Last Admin (NS Flush) 2 ml UNSCH PRN IV FLUSH 08/19/16 16:15 (NS Flush) 2 ml BID IV FLUSH 08/19/16 21:00 08/21/16 08:45 (Tylenol) 650 mg Q4H PRN PO 08/19/16 16:15 (Zofran Inj) 4 mg Q6H PRN IVP 08/19/16 16:15 (Milk Of Magnesia Liq) 30 ml Q12H PRN PO 08/19/16 16:15 (Lovenox Inj) 40 mg Q24H SQ 08/19/16 16:30 08/20/16 17:58 (Narcan Inj) 0.4 mg UNSCH PRN IV 08/19/16 16:15 (Lasix Inj) 40 mg BID@18 IV PUSH 08/20/16 09:00 08/21/16 08:44 (D50w (Vial) Inj) 25 ml UNSCH PRN IV PUSH 08/19/16 17:15 (Glucagon Inj) 1 mg UNSCH PRN OTHER 08/19/16 17:15 (Wellbutrin) 100 mg BID PO 08/19/16 21:00 08/21/16 08:44 (Folate) 1 mg DAILY PO 08/20/16 09:00 08/21/16 08:44 (Apresoline) 25 mg TID PO 08/19/16 18:00 08/21/16 08:44 (Aldactone) 25 mg BID@,18 PO 08/19/16 18:00 08/21/16 08:44 (Spiriva Inh) 18 mcg DAILY INH 08/20/16 09:00 (Desyrel) 50 mg HS PO 08/19/16 21:00 08/19/16 21:09 (Fioricet 325-50-40) 1 tab Q8H PRN PO 08/20/16 09:15 08/21/16 07:09 (Percocet 7.5-325 Mg) 1 tab Q6H PRN PO 08/20/16 09:15 08/21/16 05:21 (NovoLOG INJ) 7 units TIDAC SQ 08/20/16 13:00 08/21/16 08:45 (Levemir Inj) 25 units HS SQ 08/20/16 21:00 08/20/16 21:28 A/P Assessment and Plan Respiratory failure CT PE study and CT abd/pelvis - Supplemental oxygen to keep O2 sat > 90%. Duonebs scheduled -cor pulmonale Anasarca - Albumin 3.6. CHF exacerbation IV Lasix 40mg BID Echocardiogram ordered. Aldactone 25mg BID. strict I&Os monitor electrolytes. HTN Continue Hydralazine 10mg TID. Diabetes mellitus Continue Levemir, aspart 7 units 3 times a day before meals. Continue sliding scale insulin. JEFF - non CPAP noncompliant due to claustrophobia -Full code. -Lovenox. Jozef Gilliland MD August 21, 2016 08:17
[2016-08-21] MEDS: RESP: ALBUTEROL 2.5 MG/IPRATROPIUM 0.5 MG NEB (SCH) NEB ×4 (08:19→20:34)
[2016-08-21] MEDS: SPIRONOLACTONE 25 MG TAB PO SCH ×2 (08:44→17:28)
[2016-08-21] MEDS: hydrALAZINE HCL 25 MG TAB PO SCH ×3 (08:44→17:28)
[2016-08-21] MEDS: FUROSEMIDE 40 MG/4 ML VIAL IV PUSH SCH ×2 (08:44→17:28)
[2016-08-21] MEDS: FOLIC ACID 1 MG TAB PO SCH (08:44)
[2016-08-21] MEDS: buPROPion HCL 100 MG TAB PO SCH ×2 (08:44→20:55)
[2016-08-21] MEDS: INSULIN ASPART 1,000 UNITS/10 ML VIAL SQ SCH ×3 (08:45→16:23)
[2016-08-21] MEDS: SODIUM CHLORIDE 0.9% FLUSH 10 ML FLUSH IV FLUSH SCH ×2 (08:45→20:59)
[2016-08-21] MEDS: TIOTROPIUM BROMIDE 18 MCG INH INH SCH ×2 (10:02→10:04)
--- NOTE | 2016-08-21 11:48 | EC ---
Study Study Date:08/21/2016 STUDY CONCLUSIONS SUMMARY LEFT VENTRICLE: The cavity size was normal. Wall thickness was normal. Systolic function was normal. The estimated ejection fraction was in the range of 55% to 60%. Wall motion was normal; there were no regional wall motion abnormalities. If LV function is below 40, please consider prescribing an ACEI or ARB or document rationale for non-use. PROCEDURE DATA STUDY STATUS: Elective. Procedure: Transthoracic echocardiography. Image quality was poor. Scanning was performed from the parasternal, apical, and subcostal acoustic windows. Study completion: The patient tolerated the procedure well. Transthoracic echocardiography. M-mode, complete 2D, complete spectral Doppler, and color Doppler. Height: Height: 70in. Weight: Weight: 296.4lb. Body mass index: BMI: 42.6kg/m^2. Body surface area: BSA: 2.47m^2. Patient status: Inpatient. CARDIAC ANATOMY LEFT VENTRICLE: The cavity size was normal. Wall thickness was normal. Systolic function was normal. The estimated ejection fraction was in the range of 55% to 60%. Wall motion was normal; there were no regional wall motion abnormalities. AORTIC VALVE: Trileaflet; normal thickness leaflets. Doppler: Transvalvular velocity was within the normal range. There was no stenosis. No regurgitation. AORTA: Aortic root: The aortic root was normal in size. MITRAL VALVE: Structurally normal valve. Doppler: Transvalvular velocity was within the normal range. There was no evidence for stenosis. No regurgitation. LEFT ATRIUM: The atrium was normal in size. RIGHT VENTRICLE: The cavity size was normal. Wall thickness was normal. PULMONIC VALVE: Doppler: Transvalvular velocity was within the normal range. There was no evidence for stenosis. No regurgitation. TRICUSPID VALVE: Structurally normal valve. Doppler: Transvalvular velocity was within the normal range. No regurgitation. PULMONARY ARTERY: The main pulmonary artery was normal-sized. Systolic pressure was within the normal range. RIGHT ATRIUM: The atrium was normal in size. PERICARDIUM: There was no pericardial effusion. SYSTEMIC VEINS: Inferior vena cava: The vessel was normal in size. Patient weight: 296.4lb _Ejection fraction:_ 65-75% _Fractional shortening:_ 32% up to 5Kg 5-11.5Kg 11.6-22.9Kg 23-45Kg 45-57Kg Aortic Root 7-13 <17 13-22 17-27 17-27 LA diam 6-13 <23 24-38 33-47 37-40 RVID 10-17 7-15 7-15 7-18 8-17 LVIDd 12-22 <32 24-38 33-47 37-40 LVPW 2-4 3-6 5-7 6-8 7-8 IVS 2-4 3-6 5-7 6-8 7-8 BASIC MEASUREMENTS ADULT NORMAL Aortic valve Leaflet separation 25 mm 15-26 BASIC MEASUREMENTS ADULT NORMAL Left ventricle LV internal dimension, ED 50.7 mm 37-56 LV internal dimension, ES 32.3 mm Fractional shortening 36 % 29-45 LV posterior wall, ED *14.6 mm 6-11 Septal/posterior wall ratio, ED 1 Relative wall thickness, ED *0.58 <0.45 Volume, ED, Teichholz 122 ml Volume, ES, Teichholz 41.9 ml Ejection fraction, Teichholz 65.7 % 64-83 Stroke volume, Teichholz 80.1 ml Volume index, ED, Teichholz 49 ml/m^2 Volume index, ES, Teichholz 17 ml/m^2 Stroke index, Teichholz 32.4 ml/m^2 Wall mass 316.6 g Wall mass index 128.2 g/m^2 Mass/height 1.78 g/cm Ventricular septum Septal thickness, ED 14.6 mm Aortic valve Leaflet separation 25 mm 15-26 Aorta Root diameter, ED 29 mm 20-37 DOPPLER MEASUREMENTS ADULT NORMAL Pulmonic valve Peak velocity, S 91.7 cm/s LEGEND: Mean values are shown as u=mean value. Asterisk (*) starkey values outside specified normal range. Prepared and signed by Adams Daniels [id number]
[2016-08-21] MEDS: ENOXAPARIN SODIUM 40 MG/0.4 ML SYRINGE SQ SCH (16:23)
[2016-08-21] MEDS: INSULIN DETEMIR 100 UNITS/ML VIAL SQ SCH (20:55)
[2016-08-21] MEDS: traZODone HCL 50 MG TAB PO SCH (20:55)
[2016-08-21 21:09] LABS: MEAN CORPUSCULAR HGB CONC 28.3 % (32.0-36.0)
[2016-08-22] VITALS (8 sets, daily range): BP systolic 147–187; BP diastolic 68–84; PULSE 97–113; RESP 18–20; TEMP 97.3–98.4; O2SAT 90–96
[2016-08-22] MEDS: INSULIN ASPART SUPPLEMENTAL SCALE SQ SCH ×4 (05:41→20:47)
[2016-08-22] MEDS: oxyCODONE/ACETAMINOPHEN 7.5 MG/325 MG TAB PO PRN ×4 (05:43→20:45)
[2016-08-22] MEDS: RESP: ALBUTEROL 2.5 MG/IPRATROPIUM 0.5 MG NEB (PRN) NEB (05:46)
[2016-08-22] MEDS: hydrALAZINE HCL 25 MG TAB PO SCH ×3 (07:46→17:17)
[2016-08-22] MEDS: FOLIC ACID 1 MG TAB PO SCH (07:46)
[2016-08-22] MEDS: SPIRONOLACTONE 25 MG TAB PO SCH ×2 (07:46→17:17)
[2016-08-22] MEDS: buPROPion HCL 100 MG TAB PO SCH ×2 (07:46→20:45)
[2016-08-22] MEDS: FUROSEMIDE 40 MG/4 ML VIAL IV PUSH SCH (07:46)
[2016-08-22] MEDS: ACETAMIN 325 MG/BUTALBITAL 50 MG/CAFFEINE 40 MG TAB PO PRN (07:47)
[2016-08-22] MEDS: INSULIN ASPART 1,000 UNITS/10 ML VIAL SQ SCH ×3 (07:49→16:48)
[2016-08-22] MEDS: TIOTROPIUM BROMIDE 18 MCG INH INH SCH (07:52)
[2016-08-22] MEDS: SODIUM CHLORIDE 0.9% FLUSH 10 ML FLUSH IV FLUSH SCH ×2 (07:54→20:48)
[2016-08-22 08:18] LABS: AUTOMATED NEUTROPHIL # 5.3 TH/MM3 (1.8-7.7); BASOPHIL # 0.1 TH/MM3 (0-0.2); BASOPHIL % 0.7 % (0.0-2.0); EOSINOPHIL # 0.2 TH/MM3 (0-0.4); EOSINOPHIL % 2.4 % (0.0-4.0); HEMATOCRIT 33.9 % (39.0-51.0); LYMPH % 16.4 % (9.0-44.0); LYMPHOCYTE # 1.3 TH/MM3 (1.0-4.8); MEAN CELL VOLUME 65.2 FL (80.0-100.0); MEAN CORPUSCULAR HEMOGLOBIN 18.4 PG (27.0-34.0); MONO % 11.7 % (0.0-8.0); NEUT % 68.8 % (16.0-70.0); PLATELET COUNT 273 TH/MM3 (150-450); RED BLOOD COUNT 5.19 MIL/MM3 (4.50-5.90); RED CELL DISTRIBUTION WIDTH 21.7 % (11.6-17.2); WHITE BLOOD COUNT 7.7 TH/MM3 (4.0-11.0)
[2016-08-22 08:23] LABS: HEMO FLAGS AUTO DIFF
[2016-08-22] MEDS: RESP: ALBUTEROL 2.5 MG/IPRATROPIUM 0.5 MG NEB (SCH) NEB ×4 (08:39→21:20)
[2016-08-22 08:47] LABS: BICARBONATE 41.3 MEQ/L (21.0-32.0); POTASSIUM 4.1 MEQ/L (3.5-5.1)
[2016-08-22 09:10] LABS: BANDS 2 % (0-6); EOSINOPHILS 3 % (0-4); METAMYELOCYTES 1 % (0-1); MYELOCYTES 1 % (0-0); NEUTROPHIL # MANUAL DIFF 5.3 TH/MM3 (1.8-7.7); POLYS (SEG NEUTROPHILS) 65 % (16-70); WBC DIFF SAMPLE 100
[2016-08-22 09:18] LABS: PLATELET ESTIMATE SMEAR NORMAL (NORMAL); PLATELET MORPHOLOGY NORMAL (NORMAL); SCAN/DIFF FINAL DIFF MANUAL
--- NOTE | 2016-08-22 10:33 | HHI.FPPN ---
Subjective Remarks weak SOB COUGHING C/O INCR PAIN REQS INCR PERC D/W RN Objective Vitals Vital Signs Date Time Temp Pulse Resp B/P Pulse Ox O2 Delivery O2 Flow Rate FiO2 08/22/16 08:00 98.3 97 20 159/80 96 08/22/16 07:50 Nasal Cannula 4.00 08/22/16 05:46 93 Nasal Cannula 4.00 08/22/16 04:00 97.8 113 18 187/84 93 08/22/16 00:00 97.6 108 20 149/74 93 08/21/16 21:03 Nasal Cannula 4.00 08/21/16 20:37 90 Nasal Cannula 4.00 08/21/16 20:23 109 08/21/16 20:00 97.8 110 20 151/79 94 08/21/16 16:00 97.5 97 20 127/65 93 08/21/16 12:00 97.4 105 22 141/72 94 I/O 08/21/16 08/21/16 08/21/16 08/22/16 08/22/16 08/22/16 06:59 14:59 22:59 06:59 14:59 22:59 Intake Total 1080 ml 1200 ml 720 ml 360 ml Balance 1080 ml 1200 ml 720 ml 360 ml Intake Oral 1080 ml 1200 ml 720 ml 360 ml # Voids 2 4 4 2 # Bowel Movements 0 0 0 Result Diagram: 08/22/16 0749 08/22/16 0749 Objective Remarks GENERAL: SKIN: Warm and dry. HEAD: Atraumatic. Normocephalic. EYES: Pupils equal and round. No scleral icterus. No injection or drainage. ENT: No nasal bleeding or discharge. Mucous membranes pink and moist. NECK: Trachea midline. No JVD. CARDIOVASCULAR: Regular rate and rhythm. RESPIRATORY: +accessory muscle use. tight, distant BS's. harsh congested cough. wheezing on I/E GASTROINTESTINAL: Abdomen soft, non-tender, nondistended. Hepatic and splenic margins not palpable. MUSCULOSKELETAL: 3 plus BLE's NEUROLOGICAL: Awake and alert. No obvious cranial nerve deficits. Motor grossly within normal limits. 3 out of 5 muscle strength in the arms and legs. Normal speech. PSYCHIATRIC: Appropriate mood and affect; insight and judgment normal. Medications and IVs Current Medications Medications (Trade) Dose Ordered Sig/Whit Route Start Time Stop Time Status Last Admin (NS Flush) 2 ml UNSCH PRN IV FLUSH 08/19/16 16:15 (NS Flush) 2 ml BID IV FLUSH 08/19/16 21:00 08/22/16 07:54 (Tylenol) 650 mg Q4H PRN PO 08/19/16 16:15 (Zofran Inj) 4 mg Q6H PRN IVP 08/19/16 16:15 (Milk Of Magnesia Liq) 30 ml Q12H PRN PO 08/19/16 16:15 (Lovenox Inj) 40 mg Q24H SQ 08/19/16 16:30 08/21/16 16:23 (Narcan Inj) 0.4 mg UNSCH PRN IV 08/19/16 16:15 (Lasix Inj) 40 mg BID@ IV PUSH 08/20/16 09:00 08/22/16 07:46 (D50w (Vial) Inj) 25 ml UNSCH PRN IV PUSH 08/19/16 17:15 (Glucagon Inj) 1 mg UNSCH PRN OTHER 08/19/16 17:15 (Wellbutrin) 100 mg BID PO 08/19/16 21:00 08/22/16 07:46 (Folate) 1 mg DAILY PO 08/20/16 09:00 08/22/16 07:46 (Apresoline) 25 mg TID PO 08/19/16 18:00 08/22/16 07:46 (Aldactone) 25 mg BID@ PO 08/19/16 18:00 08/22/16 07:46 (Spiriva Inh) 18 mcg DAILY INH 08/20/16 09:00 08/22/16 07:52 (Desyrel) 50 mg HS PO 08/19/16 21:00 08/21/16 20:55 (Fioricet 325-50-40) 1 tab Q8H PRN PO 08/20/16 09:15 08/22/16 07:47 (Percocet 7.5-325 Mg) 1 tab Q6H PRN PO 08/20/16 09:15 08/22/16 05:43 (NovoLOG INJ) 7 units TIDAC SQ 08/20/16 13:00 08/22/16 07:49 (Levemir Inj) 25 units HS SQ 08/20/16 21:00 08/21/16 20:55 A/P Assessment and Plan Respiratory failure CT PE study and CT abd/pelvis - Supplemental oxygen to keep O2 sat > 90%. Duonebs scheduled -cor pulmonale Anasarca - Albumin 3.6. CHF exacerbation CHANGE TO IV BUMEX Echocardiogram - Aldactone 25mg BID. strict I&Os monitor electrolytes. HTN Continue Hydralazine 10mg TID. Diabetes mellitus Continue Levemir, aspart 7 units 3 times a day before meals. Continue sliding scale insulin. JEFF - non CPAP noncompliant due to claustrophobia -Full code. -Lovenox. Jozef Gilliland MD August 22, 2016 10:33
[2016-08-22] MEDS: ENOXAPARIN SODIUM 40 MG/0.4 ML SYRINGE SQ SCH (16:39)
[2016-08-22] MEDS: BUMETANIDE INJ 1 MG/4 ML VIAL IV PUSH SCH (17:17)
[2016-08-22] MEDS: traZODone HCL 50 MG TAB PO SCH (20:45)
[2016-08-22] MEDS: INSULIN DETEMIR 100 UNITS/ML VIAL SQ SCH (20:46)
[2016-08-23] VITALS (10 sets, daily range): BP systolic 118–152; BP diastolic 56–82; PULSE 99–112; RESP 18–20; TEMP 97.5–98.5; O2SAT 93–96
[2016-08-23] MEDS: oxyCODONE/ACETAMINOPHEN 7.5 MG/325 MG TAB PO PRN ×5 (00:44→20:35)
[2016-08-23] MEDS: ACETAMIN 325 MG/BUTALBITAL 50 MG/CAFFEINE 40 MG TAB PO PRN (03:19)
[2016-08-23] MEDS: RESP: ALBUTEROL 2.5 MG/IPRATROPIUM 0.5 MG NEB (PRN) NEB (03:55)
[2016-08-23] MEDS: INSULIN ASPART SUPPLEMENTAL SCALE SQ SCH ×4 (06:32→20:38)
[2016-08-23 07:38] LABS: BICARBONATE 38.8 MEQ/L (21.0-32.0); POTASSIUM 3.9 MEQ/L (3.5-5.1)
[2016-08-23] MEDS: TIOTROPIUM BROMIDE 18 MCG INH INH SCH (08:30)
[2016-08-23] MEDS: SODIUM CHLORIDE 0.9% FLUSH 10 ML FLUSH IV FLUSH SCH ×2 (08:31→20:35)
[2016-08-23] MEDS: hydrALAZINE HCL 25 MG TAB PO SCH ×3 (08:31→17:44)
[2016-08-23] MEDS: buPROPion HCL 100 MG TAB PO SCH ×2 (08:31→20:35)
[2016-08-23] MEDS: FOLIC ACID 1 MG TAB PO SCH (08:31)
[2016-08-23] MEDS: SPIRONOLACTONE 25 MG TAB PO SCH ×2 (08:31→17:44)
[2016-08-23] MEDS: BUMETANIDE INJ 1 MG/4 ML VIAL IV PUSH SCH ×3 (08:31→17:44)
[2016-08-23] MEDS: INSULIN ASPART 1,000 UNITS/10 ML VIAL SQ SCH ×3 (08:33→17:44)
[2016-08-23] MEDS: RESP: ALBUTEROL 2.5 MG/IPRATROPIUM 0.5 MG NEB (SCH) NEB ×4 (09:16→19:25)
--- NOTE | 2016-08-23 10:12 | HHI.FPPN ---
Subjective Remarks v harsh cough excess edema noted c/o unable to function agitated d/w RN Objective Vitals Vital Signs Date Time Temp Pulse Resp B/P Pulse Ox O2 Delivery O2 Flow Rate FiO2 08/23/16 08:05 93 Nasal Cannula 3.00 08/23/16 08:00 98.1 112 20 147/82 93 08/23/16 06:03 103 08/23/16 04:00 98.2 109 18 152/77 08/23/16 03:57 High Flow Nasal Cannula 4.00 08/23/16 00:00 98.5 108 20 118/56 08/22/16 20:51 Nasal Cannula 4.00 08/22/16 20:00 98.4 107 20 157/68 92 08/22/16 16:00 97.3 98 18 147/69 90 08/22/16 12:00 98.1 101 20 153/75 95 I/O 08/22/16 08/22/16 08/22/16 08/23/16 08/23/16 08/23/16 07:00 15:00 23:00 07:00 15:00 23:00 Intake Total 360 ml 960 ml 480 ml Balance 360 ml 960 ml 480 ml Intake Oral 360 ml 960 ml 480 ml # Voids 2 4 3 # Bowel Movements 0 0 1 Result Diagram: 08/22/16 0749 08/23/16 0555 Objective Remarks GENERAL: SKIN: Warm and dry. HEAD: Atraumatic. Normocephalic. EYES: Pupils equal and round. No scleral icterus. No injection or drainage. ENT: No nasal bleeding or discharge. Mucous membranes pink and moist. NECK: Trachea midline. No JVD. CARDIOVASCULAR: Regular rate and rhythm. RESPIRATORY: +accessory muscle use. tight, distant BS's. harsh congested cough. wheezing on I/E GASTROINTESTINAL: Abdomen soft, non-tender, nondistended. Hepatic and splenic margins not palpable. MUSCULOSKELETAL: 3 plus BLE's NEUROLOGICAL: Awake and alert. No obvious cranial nerve deficits. Motor grossly within normal limits. 3 out of 5 muscle strength in the arms and legs. Normal speech. PSYCHIATRIC: Appropriate mood and affect; insight and judgment normal. Medications and IVs Current Medications Medications (Trade) Dose Ordered Sig/Whit Route Start Time Stop Time Status Last Admin (NS Flush) 2 ml UNSCH PRN IV FLUSH 08/19/16 16:15 (NS Flush) 2 ml BID IV FLUSH 08/19/16 21:00 08/23/16 08:31 (Tylenol) 650 mg Q4H PRN PO 08/19/16 16:15 (Zofran Inj) 4 mg Q6H PRN IVP 08/19/16 16:15 (Milk Of Magnesia Liq) 30 ml Q12H PRN PO 08/19/16 16:15 (Lovenox Inj) 40 mg Q24H SQ 08/19/16 16:30 08/22/16 16:39 (Narcan Inj) 0.4 mg UNSCH PRN IV 08/19/16 16:15 (D50w (Vial) Inj) 25 ml UNSCH PRN IV PUSH 08/19/16 17:15 (Glucagon Inj) 1 mg UNSCH PRN OTHER 08/19/16 17:15 (Wellbutrin) 100 mg BID PO 08/19/16 21:00 08/23/16 08:31 (Folate) 1 mg DAILY PO 08/20/16 09:00 08/23/16 08:31 (Apresoline) 25 mg TID PO 08/19/16 18:00 08/23/16 08:31 (Aldactone) 25 mg BID@ PO 08/19/16 18:00 08/23/16 08:31 (Spiriva Inh) 18 mcg DAILY INH 08/20/16 09:00 08/23/16 08:30 (Desyrel) 50 mg HS PO 08/19/16 21:00 08/22/16 20:45 (Fioricet 325-50-40) 1 tab Q8H PRN PO 08/20/16 09:15 08/23/16 03:19 (NovoLOG INJ) 7 units TIDAC SQ 08/20/16 13:00 08/23/16 08:33 (Levemir Inj) 25 units HS SQ 08/20/16 21:00 08/22/16 20:46 (Bumex Inj) 1 mg BID@09,18 IV PUSH 08/22/16 18:00 08/23/16 08:31 (Percocet 7.5-325 Mg) 1 tab Q4HR PRN PO 08/22/16 12:00 5/10/17 09:24 A/P Assessment and Plan Respiratory failure CT PE study and CT abd/pelvis - Supplemental oxygen to keep O2 sat > 90%. Bertin scheduled -cor pulmonale -COPD EXAC: IV ABX, NEBS Anasarca - Albumin 3.6. CHF exacerbation CHANGED TO IV BUMEX, INCR BUMEX Echocardiogram - Aldactone 25mg BID. strict I&Os monitor electrolytes. HTN Continue Hydralazine 10mg TID. Diabetes mellitus Continue Levemir, aspart 7 units 3 times a day before meals. Continue sliding scale insulin. JEFF - non CPAP noncompliant due to claustrophobia -Full code. -Lovenox. Jozef Gilliland MD August 23, 2016 10:12
[2016-08-23] MEDS: AZITHROMYCIN INJ 500 MG in SODIUM CHLOR 0.9% 250 ML INJ 250 ML IV SCH (12:46)
[2016-08-23] MEDS: ENOXAPARIN SODIUM 40 MG/0.4 ML SYRINGE SQ SCH (15:30)
[2016-08-23 18:31] LABS: AMPHETAMINE, URINE NEG (NEG); BARBITURATES, URINE POS (NEG); COCAINE, URINE NEG (NEG)
[2016-08-23] MEDS: traZODone HCL 50 MG TAB PO SCH (20:35)
[2016-08-23] MEDS: INSULIN DETEMIR 100 UNITS/ML VIAL SQ SCH (20:37)
[2016-08-24] VITALS (7 sets, daily range): BP systolic 126–156; BP diastolic 65–75; PULSE 100–119; RESP 20–22; TEMP 97.6–98.1; O2SAT 92–97
[2016-08-24] MEDS: oxyCODONE/ACETAMINOPHEN 7.5 MG/325 MG TAB PO PRN ×6 (00:24→21:54)
[2016-08-24] MEDS: INSULIN ASPART SUPPLEMENTAL SCALE SQ SCH ×4 (06:05→21:55)
[2016-08-24 06:53] LABS: BICARBONATE 40.9 MEQ/L (21.0-32.0); POTASSIUM 3.9 MEQ/L (3.5-5.1)
[2016-08-24] MEDS: FOLIC ACID 1 MG TAB PO SCH (09:01)
[2016-08-24] MEDS: buPROPion HCL 100 MG TAB PO SCH ×2 (09:01→21:54)
[2016-08-24] MEDS: SPIRONOLACTONE 25 MG TAB PO SCH ×2 (09:01→17:01)
[2016-08-24] MEDS: SODIUM CHLORIDE 0.9% FLUSH 10 ML FLUSH IV FLUSH SCH ×2 (09:01→21:56)
[2016-08-24] MEDS: BUMETANIDE INJ 1 MG/4 ML VIAL IV PUSH SCH ×3 (09:01→17:01)
[2016-08-24] MEDS: hydrALAZINE HCL 25 MG TAB PO SCH ×3 (09:01→17:01)
[2016-08-24] MEDS: TIOTROPIUM BROMIDE 18 MCG INH INH SCH (09:01)
[2016-08-24] MEDS: INSULIN ASPART 1,000 UNITS/10 ML VIAL SQ SCH ×3 (09:07→17:08)
[2016-08-24] MEDS: AZITHROMYCIN INJ 500 MG in SODIUM CHLOR 0.9% 250 ML INJ 250 ML IV SCH (12:39)
--- NOTE | 2016-08-24 13:58 | HHI.FPPN ---
Subjective Remarks c/o SOB C/O COUGH C/O EDEMA D/W RN Objective Vitals Vital Signs Date Time Temp Pulse Resp B/P Pulse Ox O2 Delivery O2 Flow Rate FiO2 08/24/16 09:00 Nasal Cannula 3.00 08/24/16 08:50 92 Nasal Cannula 4.00 08/24/16 08:00 97.7 112 20 136/65 93 08/24/16 05:51 16 08/24/16 05:40 98.1 113 22 134/75 92 08/24/16 00:06 97.8 119 22 126/74 95 08/23/16 20:27 97.8 106 20 125/61 94 08/23/16 20:00 107 08/23/16 19:45 Nasal Cannula 3.00 08/23/16 16:00 98.0 99 20 132/66 94 08/23/16 15:56 94 Nasal Cannula 4.00 I/O 08/23/16 08/23/16 08/23/16 08/24/16 08/24/16 08/24/16 07:00 15:00 23:00 07:00 15:00 23:00 Intake Total 1090 ml 720 ml Balance 1090 ml 720 ml Intake Oral 840 ml 720 ml IV Total 250 ml # Voids 5 3 2 # Bowel Movements 0 Result Diagram: 08/22/16 0749 08/24/16 0533 Objective Remarks GENERAL: SKIN: Warm and dry. HEAD: Atraumatic. Normocephalic. EYES: Pupils equal and round. No scleral icterus. No injection or drainage. ENT: No nasal bleeding or discharge. Mucous membranes pink and moist. NECK: Trachea midline. No JVD. CARDIOVASCULAR: Regular rate and rhythm. RESPIRATORY: +accessory muscle use. tight, distant BS's. harsh congested cough. wheezing on I/E GASTROINTESTINAL: Abdomen soft, non-tender, nondistended. Hepatic and splenic margins not palpable. MUSCULOSKELETAL: 3 plus BLE's NEUROLOGICAL: Awake and alert. No obvious cranial nerve deficits. Motor grossly within normal limits. 3 out of 5 muscle strength in the arms and legs. Normal speech. PSYCHIATRIC: Appropriate mood and affect; insight and judgment normal. Medications and IVs Current Medications Medications (Trade) Dose Ordered Sig/Whit Route Start Time Stop Time Status Last Admin (NS Flush) 2 ml UNSCH PRN IV FLUSH 08/19/16 16:15 (NS Flush) 2 ml BID IV FLUSH 08/19/16 21:00 08/24/16 09:01 (Tylenol) 650 mg Q4H PRN PO 08/19/16 16:15 (Zofran Inj) 4 mg Q6H PRN IVP 08/19/16 16:15 (Milk Of Magnesia Liq) 30 ml Q12H PRN PO 08/19/16 16:15 (Lovenox Inj) 40 mg Q24H SQ 08/19/16 16:30 08/23/16 15:30 (Narcan Inj) 0.4 mg UNSCH PRN IV 08/19/16 16:15 (D50w (Vial) Inj) 25 ml UNSCH PRN IV PUSH 08/19/16 17:15 (Glucagon Inj) 1 mg UNSCH PRN OTHER 08/19/16 17:15 (Wellbutrin) 100 mg BID PO 08/19/16 21:00 08/24/16 09:01 (Folate) 1 mg DAILY PO 08/20/16 09:00 08/24/16 09:01 (Apresoline) 25 mg TID PO 08/19/16 18:00 08/24/16 12:39 (Aldactone) 25 mg BID@09,18 PO 08/19/16 18:00 08/24/16 09:01 (Spiriva Inh) 18 mcg DAILY INH 08/20/16 09:00 08/24/16 09:01 (Desyrel) 50 mg HS PO 08/19/16 21:00 08/23/16 20:35 (Fioricet 325-50-40) 1 tab Q8H PRN PO 08/20/16 09:15 08/23/16 03:19 (NovoLOG INJ) 7 units TIDAC SQ 08/20/16 13:00 08/24/16 12:38 (Levemir Inj) 25 units HS SQ 08/20/16 21:00 08/23/16 20:37 (Percocet 7.5-325 Mg) 1 tab Q4HR PRN PO 08/22/16 12:00 08/24/16 13:05 Bumetanide 1.5 mg 1.5 mg TID IV PUSH 08/23/16 13:00 08/24/16 12:39 (Zithromax Inj/ NS 250 ml Inj) 250 ml @ 250 mls/hr Q24H IV 08/23/16 11:00 08/24/16 12:39 A/P Assessment and Plan Respiratory failure CT PE study and CT abd/pelvis - Supplemental oxygen to keep O2 sat > 90%. Duneli scheduled -cor pulmonale -COPD EXAC: IV ABX, NEBS -BRONCHITIS Anasarca - Albumin 3.6. CHF exacerbation IV BUMEX Echocardiogram - Aldactone 25mg BID. strict I&Os monitor electrolytes. HTN Continue Hydralazine 10mg TID. Diabetes mellitus Continue Levemir, aspart 7 units 3 times a day before meals. Continue sliding scale insulin. JEFF - non CPAP noncompliant due to claustrophobia -Full code. -Lovenox. Jozef Gilliland MD August 24, 2016 13:58
[2016-08-24] MEDS: ENOXAPARIN SODIUM 40 MG/0.4 ML SYRINGE SQ SCH (17:01)
[2016-08-24 21:12] LABS: MEAN CORPUSCULAR HGB CONC 29.3 % (32.0-36.0)
[2016-08-24] MEDS: traZODone HCL 50 MG TAB PO SCH (21:54)
[2016-08-24] MEDS: INSULIN DETEMIR 100 UNITS/ML VIAL SQ SCH (21:56)
[2016-08-25] VITALS: BP 150/67; PULSE 106; RESP 20; TEMP 97.6; O2SAT 95
[2016-08-25] MEDS: oxyCODONE/ACETAMINOPHEN 7.5 MG/325 MG TAB PO PRN ×3 (01:56→11:39)
[2016-08-25 04:00] VITALS: BP 161/77; PULSE 99; RESP 20; TEMP 97.8; O2SAT 96
[2016-08-25] MEDS: INSULIN ASPART SUPPLEMENTAL SCALE SQ SCH ×2 (06:23→11:42)
[2016-08-25 08:00] VITALS: BP 155/77; PULSE 103; RESP 20; TEMP 97.5; O2SAT 92
[2016-08-25 08:11] VITALS: PULSE 96
[2016-08-25] MEDS: BUMETANIDE INJ 1 MG/4 ML VIAL IV PUSH SCH ×2 (08:16→11:39)
[2016-08-25] MEDS: SPIRONOLACTONE 25 MG TAB PO SCH (08:17)
[2016-08-25] MEDS: buPROPion HCL 100 MG TAB PO SCH (08:17)
[2016-08-25] MEDS: FOLIC ACID 1 MG TAB PO SCH (08:17)
[2016-08-25] MEDS: TIOTROPIUM BROMIDE 18 MCG INH INH SCH (08:17)
[2016-08-25] MEDS: SODIUM CHLORIDE 0.9% FLUSH 10 ML FLUSH IV FLUSH SCH (08:17)
[2016-08-25] MEDS: hydrALAZINE HCL 25 MG TAB PO SCH ×2 (08:17→11:39)
[2016-08-25] MEDS: INSULIN ASPART 1,000 UNITS/10 ML VIAL SQ SCH ×2 (08:19→11:43)
[2016-08-25 08:47] VITALS: O2SAT 94
[2016-08-25] MEDS ORDERED: AZIT250T3 PO (09:31)
[2016-08-25] MEDS ORDERED: BUME1TAB26 PO (09:31)
--- NOTE | 2016-08-25 09:32 | HHI.DCPOC ---
Discharge Care Plan Diagnosis: (1) Chronic airway obstruction, not elsewhere classified (2) Seizure disorder (3) Heart failure with reduced ejection fraction (4) Hyperglycemia (5) Benign hypertension (6) Emphysema lung (7) Pneumonia (8) COPD with exacerbation Goals to Promote Your Health * To prevent worsening of your condition and complications * To maintain your health at the optimal level Directions to Meet Your Goals Take your medications as prescribed Follow your dietary instruction Follow activity as directed Keep your appointments as scheduled Take your immunizations and boosters as scheduled If your symptoms worsen call your PCP, if no PCP go to Urgent Care Center or Emergency Room Smoking is Dangerous to Your Health. Avoid second hand smoke Call the 24-hour hour crisis hotline for domestic abuse at Jozef Gilliland MD August 25, 2016 09:31
--- NOTE | 2016-08-25 09:33 | HHI.FF ---
Face to Face Verification Diagnosis: (1) Nutrition, metabolism, and development symptoms (2) Essential hypertension (3) Dysphagia (4) HLD (hyperlipidemia) (5) Dyslipidemia (6) Chronic obstructive airway disease (7) CHF (congestive heart failure) (8) Leukocytosis (9) COPD with exacerbation (10) Pneumonia (11) Seizure disorder (12) Emphysema lung Physical Therapy Order: Evaluate and Treat, Improve ambulation, Strength and gait training Home Health Nursing Order: Medical education Diabetic education CHF education Oxygen administration education Medication education-adverse effect Wound care and dressing changes Nursing assessment with vital signs Home Health Aide Order: To Assist In: Bathing and personal care, modern dancer and meal prep Loop Cutter Order: To Evaluate: Living conditions/environment, Support services Order: To Provide: Long range planning, Community services I have seen patient Madan Guerra on 08/25/16. My clinical findings support the need for the requested home health care services because: Ltd mobility - disease progression Patient has SOB Deconditioned w/ increased weakness Med compliance is questionable Limited ability to care for self Need for psychosocial assistance Impaired cognition/judgement Infection w/ risk of complications I certify that my clinical findings support that this patient is homebound because: Hx COPD- exertion dyspnea/weakness Unsteady gait/balance Unsafe to leave home unassisted Need for psychosocial assistance Poor cardiac reserve Jozef Gilliland MD August 25, 2016 09:33
--- NOTE | 2016-08-25 09:34 | HHI.DS ---
Discharge Summary Admission Date August 19, 2016 at 16:14 Discharge Date: August 25, 2016 Admitting Diagnosis Anasarca, Acute on chronic hypoxic respiratory failure (1) Alcohol abuse (2) Nutrition, metabolism, and development symptoms (3) Leukocytosis (4) CHF (congestive heart failure) (5) Dysphagia (6) Essential hypertension (7) Heart failure with reduced ejection fraction (8) COPD with exacerbation (9) Pneumonia (10) Seizure disorder (11) Emphysema lung (12) Hyperglycemia (13) Benign hypertension CBC/BMP: 08/22/16 0749 08/24/16 0533 Significant Findings Laboratory Tests Test 08/23/16 08/23/16 08/24/16 05:55 17:45 05:33 Sodium Level 135 MEQ/L (136-145) Chloride Level 90 MEQ/L 92 MEQ/L (98-107) (98-107) Carbon Dioxide Level 38.8 MEQ/L 40.9 MEQ/L (21.0-32.0) (21.0-32.0) Random Glucose 196 MG/DL 195 MG/DL (74-106) (74-106) Urine Barbiturates Screen POS (NEG) Urine Cannabinoids Screen POS (NEG) Anion Gap 4 MEQ/L (5-15) PE at Discharge GENERAL: SKIN: Warm and dry. 5 CM BACK ABSCESS HEAD: Atraumatic. Normocephalic. EYES: Pupils equal and round. No scleral icterus. No injection or drainage. ENT: No nasal bleeding or discharge. Mucous membranes pink and moist. NECK: Trachea midline. No JVD. CARDIOVASCULAR: Regular rate and rhythm. RESPIRATORY: No accessory muscle use. Clear to auscultation. Breath sounds equal bilaterally. GASTROINTESTINAL: Abdomen soft, non-tender, nondistended. Hepatic and splenic margins not palpable. MUSCULOSKELETAL: Extremities without clubbing, cyanosis, or edema. No obvious deformities. NEUROLOGICAL: Awake and alert. No obvious cranial nerve deficits. Motor grossly within normal limits. Five out of 5 muscle strength in the arms and legs. Normal speech. PSYCHIATRIC: Appropriate mood and affect; insight and judgment normal. Hospital Course 56 Y CM. ADMIT WITH - Respiratory failure CT PE study and CT abd/pelvis - Supplemental oxygen to keep O2 sat > 90%. Duonebs scheduled -cor pulmonale -COPD EXAC: IV ABX, NEBS -BRONCHITIS Anasarca - Albumin 3.6. CHF exacerbation IV BUMEX Echocardiogram - Aldactone 25mg BID. strict I&Os monitor electrolytes. HTN Continue Hydralazine 10mg TID. Diabetes mellitus Continue Levemir, aspart 7 units 3 times a day before meals. Continue sliding scale insulin. JEFF - non CPAP noncompliant due to claustrophobia -Full code. -Lovenox. -I SUGGESTED PT STAY, HE IS GOING TO SIGN OUT AMA IF NOT DISCHARGED. HE IS UNWILLING TO WAIT FOR SURGERY FOR BACK ABSCESS, HE UNDERSTANDS THIS IS GOING TO WORSEN. HE NEEDS FURTHER DIURESIS. SEE ORDERS PLEASE... Discharge Disposition: Disch w/ Home Health Serv Discharge Instructions DIET: Follow Instructions for: Diabetic Diet Activities you can perform: Regular-No Restrictions New Medications: Azithromycin (Azithromycin) 250 Mg Tab 250 MG PO DIRECTED Take 2 tabs (500 mg) on day 1 then 1 tab daily x 4 days. Infection #6 Ref 0 TAB Bumetanide (Bumex) 1 Mg Tab 1 MG PO BID EDEMA Days 90 Ref 5 TAB Continued Medications: Bupropion HCl (Bupropion HCl) 100 Mg Tab 100 MG PO BID Control Depression Ref 0 TAB Docusate Sodium (Docusate Sodium) 100 Mg Cap 100 MG PO BID Prevent Constipation #60 Ref 0 CAP Folic Acid (Folate) 1 Mg Tab 1 MG PO DAILY Nutritional Supplement Ref 0 TAB Gabapentin (Gabapentin) 300 Mg Cap 300 MG PO DAILY #60 Ref 0 CAP Hydralazine (Hydralazine) 25 Mg Tab 25 MG PO TID Take with a meal Blood Pressure Management #90 Ref 0 TAB Insulin Glargine Inj (Lantus Solostar Pen Inj) 300 Unit/3 Ml Pen 30 UNITS SQ BID Blood Sugar Management Ref 0 PEN Ipratropium-Albuterol Neb (Duoneb) 0.5-2.5 Mg/3 Ml Neb 3 ML NEB QID PRN SHORTNESS OF BREATH #30 Ref 0 NEBULE Potassium Chloride ER (Potassium Chloride ER) 10 Meq Tab 10 MEQ PO BID Electrolyte Replacement #60 Ref 0 TAB Pregabalin (Lyrica) 50 Mg Cap 50 MG PO TID PRN PAIN SCALE 1 TO 10 #90 Ref 0 CAP Sennosides-Docusate Sodium (Senna Plus 8.6-50 mg) 1 Tab Tab 1 TAB PO BID Constipation Days 90 Ref 11 TAB Spironolactone (Aldactone) 25 Mg Tab 25 MG PO BID@,18 chf Days 90 Ref 11 TAB Tiotropium Inh (Spiriva Handihaler) 18 Mcg Cap 18 MCG INH DAILY 1 capsule = 18 mcg COPD #30 Ref 0 CAP Tramadol (Tramadol) 50 Mg Tab 50 MG PO BID PRN PAIN Ref 0 TAB Trazodone (Trazodone) 50 Mg Tab 50 MG PO HS Insomnia Days 90 Ref 11 TAB Discontinued Medications: Furosemide (Furosemide) 40 Mg Tab 40 MG PO DAILY #30 Ref 0 TAB Jozef Gilliland MD August 25, 2016 09:34
[2016-08-25 09:37] LABS: AUTOMATED NEUTROPHIL # 5.2 TH/MM3 (1.8-7.7); BASOPHIL % 0.6 % (0.0-2.0); EOSINOPHIL # 0.2 TH/MM3 (0-0.4); HEMATOCRIT 33.3 % (39.0-51.0); LYMPH % 17.1 % (9.0-44.0); LYMPHOCYTE # 1.3 TH/MM3 (1.0-4.8); MEAN CELL VOLUME 64.6 FL (80.0-100.0); MEAN CORPUSCULAR HEMOGLOBIN 18.9 PG (27.0-34.0); MONO % 11.2 % (0.0-8.0); NEUT % 69.1 % (16.0-70.0); PLATELET COUNT 310 TH/MM3 (150-450); RED BLOOD COUNT 5.15 MIL/MM3 (4.50-5.90); RED CELL DISTRIBUTION WIDTH 21.6 % (11.6-17.2); WHITE BLOOD COUNT 7.6 TH/MM3 (4.0-11.0)
[2016-08-25 09:39] LABS: HEMO FLAGS AUTO DIFF
[2016-08-25 10:30] LABS: BANDS 4 % (0-6); BASOPHILS 1 % (0-2); BICARBONATE 42.9 MEQ/L (21.0-32.0); CORRECTED NUCLEATED RBC 1 /100 WBC (0-0); EOSINOPHILS 2 % (0-4); METAMYELOCYTES 1 % (0-1); NEUTROPHIL # MANUAL DIFF 5.6 TH/MM3 (1.8-7.7); POLYS (SEG NEUTROPHILS) 69 % (16-70); WBC DIFF SAMPLE 100
[2016-08-25 10:31] LABS: PLATELET ESTIMATE SMEAR NORMAL (NORMAL); PLATELET MORPHOLOGY NORMAL (NORMAL); SCAN/DIFF FINAL DIFF MANUAL
[2016-08-25] MEDS ORDERED: LIDOCAINE 1%/EPINEPHrine 1:100,000 SOLN 20 ML VIAL INFIL ONE (11:00)
[2016-08-25] MEDS: AZITHROMYCIN INJ 500 MG in SODIUM CHLOR 0.9% 250 ML INJ 250 ML IV SCH (11:00)
--- NOTE | 2016-08-25 11:05 | PD.CONS ---
cc: Junior Stauffer MD HPI Service General Surgery Consult Requested By Dr. Gilliland Reason for Consult Eval for irrigation and drainage of RIGHT 5cm abscess Primary Care Physician Jozef Gilliland MD History of Present Illness This is a 56 year old male with a past medical history of COPD, chronic respiratory failure on 2 L nasal cannula at home, obstructive sleep apnea, hypertension, diabetes, seizures, migraine, and GERD. He came to the emergency department about 5 days ago with shortness of breath and bilateral lower extremity edema. He's been followed by Dr. Gilliland during admission and his respiratory status has improved. The patient was getting ready to be discharged home when he noticed a 5 cm reddened area on his back. He had not noticed this prior to today. A General Surgery consultation has been requested for evaluation of irrigation and debridement of 5 cm back abscess. Review of Systems Constitutional: DENIES: Fever Endocrine: DENIES: Polydipsia, Polyuria, Polyphagia Eyes: DENIES: Diplopia, Eye inflammation Ears, nose, mouth, throat: DENIES: Tinnitus Respiratory: DENIES: Cough, Snoring Cardiovascular: DENIES: Chest pain Gastrointestinal: DENIES: Abdominal pain Genitourinary: DENIES: Urinary incontinence, Urgency Musculoskeletal: DENIES: Joint pain Integumentary: COMPLAINS OF: Abnormal pigmentation (5 cm back abscess) Hematologic/lymphatic: DENIES: Bruising Immunologic/allergic: DENIES: Eczema Neurologic: DENIES: Localized weakness Psychiatric: DENIES: Anxiety, Confusion, Mood changes Past Family Social History Past Medical History COPD Chronic respiratory failure on oxygen at home obstructive sleep apnea Hypertension Diabetes Seizures Migraine GERD Past Surgical History Cardiac catheterization Allergies: Coded Allergies: No Known Allergies (Verified , 09/12/16) Active Ordered Medications Current Medications Medications (Trade) Dose Ordered Sig/Whit Route Start Time Stop Time Status Last Admin (NS Flush) 2 ml UNSCH PRN IV FLUSH 08/19/16 16:15 (NS Flush) 2 ml BID IV FLUSH 08/19/16 21:00 08/25/16 08:17 (Tylenol) 650 mg Q4H PRN PO 08/19/16 16:15 (Zofran Inj) 4 mg Q6H PRN IVP 08/19/16 16:15 (Milk Of Magnesia Liq) 30 ml Q12H PRN PO 08/19/16 16:15 (Lovenox Inj) 40 mg Q24H SQ 08/19/16 16:30 08/24/16 17:01 (Narcan Inj) 0.4 mg UNSCH PRN IV 08/19/16 16:15 (D50w (Vial) Inj) 25 ml UNSCH PRN IV PUSH 08/19/16 17:15 (Glucagon Inj) 1 mg UNSCH PRN OTHER 08/19/16 17:15 (Wellbutrin) 100 mg BID PO 08/19/16 21:00 08/25/16 08:17 (Folate) 1 mg DAILY PO 08/20/16 09:00 08/25/16 08:17 (Apresoline) 25 mg TID PO 08/19/16 18:00 08/25/16 08:17 (Aldactone) 25 mg BID@,18 PO 08/19/16 18:00 08/25/16 08:17 (Spiriva Inh) 18 mcg DAILY INH 08/20/16 09:00 08/25/16 08:17 (Desyrel) 50 mg HS PO 08/19/16 21:00 08/24/16 21:54 (Fioricet 325-50-40) 1 tab Q8H PRN PO 08/20/16 09:15 08/23/16 03:19 (NovoLOG INJ) 7 units TIDAC SQ 08/20/16 13:00 08/25/16 08:19 (Levemir Inj) 25 units HS SQ 08/20/16 21:00 08/24/16 21:56 (Percocet 7.5-325 Mg) 1 tab Q4HR PRN PO 08/22/16 12:00 08/25/16 06:17 Bumetanide 1.5 mg 1.5 mg TID IV PUSH 08/23/16 13:00 08/25/16 08:16 (Zithromax Inj/ NS 250 ml Inj) 250 ml @ 250 mls/hr Q24H IV 08/23/16 11:00 08/24/16 12:39 (Xylocaine-Epi 1%-1:100,000 Inj) 20 ml ONCE ONCE INFIL 08/25/16 11:00 08/25/16 11:01 Family History Noncontributory Social History Tobacco positive half a pack a day EtOHnegative Illicit drug usenegative Physical Exam Vital Signs Vital Signs Date Time Temp Pulse Resp B/P Pulse Ox O2 Delivery O2 Flow Rate FiO2 08/25/16 08:11 96 08/25/16 08:00 97.5 103 20 155/77 92 08/25/16 08:00 Nasal Cannula 3.00 08/25/16 04:00 97.8 99 20 161/77 96 08/25/16 04:00 Nasal Cannula 3.00 08/25/16 00:00 97.6 106 20 150/67 95 08/25/16 00:00 Nasal Cannula 3.00 08/24/16 20:30 Nasal Cannula 3.00 08/24/16 20:00 100 08/24/16 20:00 97.7 103 20 156/72 96 08/24/16 16:00 97.8 100 20 132/67 97 08/24/16 12:00 97.6 101 20 149/69 95 Physical Exam GENERAL: 56 year old obese male resting in bed in no acute distress. SKIN: 5cm reddened raised area on back without any drainage. HEAD: Atraumatic. Normocephalic. EYES: Pupils equal and round. No scleral icterus. No injection or drainage. ENT: No nasal bleeding or discharge. Mucous membranes pink and moist. NECK: Trachea midline. CARDIOVASCULAR: Regular rate and rhythm. RESPIRATORY: No accessory muscle use. Clear to auscultation. Breath sounds equal bilaterally. GASTROINTESTINAL: Abdomen soft, non-tender, nondistended. MUSCULOSKELETAL: Extremities without clubbing, cyanosis, or edema. No obvious deformities. NEUROLOGICAL: Awake and alert. No obvious cranial nerve deficits. Motor grossly within normal limits. Five out of 5 muscle strength in the arms and legs. Normal speech. PSYCHIATRIC: Appropriate mood and affect; insight and judgment normal. Laboratory Laboratory Tests Test 08/25/16 09:14 White Blood Count 7.6 Red Blood Count 5.15 Hemoglobin 9.7 Hematocrit 33.3 Mean Corpuscular Volume 64.6 Mean Corpuscular Hemoglobin 18.9 Mean Corpuscular Hemoglobin 29.3 Concent Red Cell Distribution Width 21.6 Platelet Count 310 Mean Platelet Volume 8.5 Neutrophils (%) (Auto) 69.1 Lymphocytes (%) (Auto) 17.1 Monocytes (%) (Auto) 11.2 Eosinophils (%) (Auto) 2.0 Basophils (%) (Auto) 0.6 Neutrophils # (Auto) 5.2 Lymphocytes # (Auto) 1.3 Monocytes # (Auto) 0.8 Eosinophils # (Auto) 0.2 Basophils # (Auto) 0.0 CBC Comment AUTO DIFF Differential Total Cells 100 Counted Neutrophils % (Manual) 69 Band Neutrophils % 4 Lymphocytes % 11 Monocytes % 12 Eosinophils % 2 Basophils % 1 Neutrophils # (Manual) 5.6 Metamyelocytes 1 Nucleated Red Blood Cells 1 Differential Comment FINAL DIFF MANUAL Platelet Estimate NORMAL Platelet Morphology Comment NORMAL Sodium Level 137 Potassium Level 4.0 Chloride Level 90 Carbon Dioxide Level 42.9 Anion Gap 4 Blood Urea Nitrogen 9 Creatinine 0.71 Estimat Glomerular Filtration 115 Rate Random Glucose 171 Calcium Level 8.8 Result Diagram: 08/25/16 0914 08/25/16 0914 Assessment and Plan Assessment and Plan 56 year old male admitted with respiratory failure and BLE edema; no with 5 cm back abscess -Plan to do incision and drainage of back abscess at the bedside -Obtain supplies -Obtain consents -Will order CM consult for [facility] for dressing changes -Patient agrees to procedure Patient seen and examined by me. I think we can do a bedside drainage. Will get supplies. JUNIOR STAUFFER MFD FACS Discussed Condition With Dr. Tommy Andrade RN Gayathri Olsen August 25, 2016 11:05 Junior Stauffer MD Sep 14, 2016 09:29
--- NOTE | 2016-08-25 11:45 | HHI.FF ---
Face to Face Verification Diagnosis: (1) Abscess Home Health Nursing Order: Wound care and dressing changes Instructions: Wound care and family teaching Back abscess---- --cover with dry 4x4 and secure with paper tape---change BID--- once by nursing and other by family Okay to shower between dressing changes I have seen patient Madan Guerra on 08/25/16. My clinical findings support the need for the requested home health care services because: Limited ability to care for self High risk of falls I certify that my clinical findings support that this patient is homebound because: Unsteady gait/balance Gayathri Olsen [facility] August 25, 2016 11:45
[2016-08-25 12:00] VITALS: BP 147/65; PULSE 106; RESP 20; TEMP 98; O2SAT 92
--- NOTE | 2016-08-25 12:29 | TN ---
cc: JUNIOR STAUFFER M.D. Corrected Copy: 09/15/16 DATE OF SURGERY 08/25/2016 PREOPERATIVE DIAGNOSIS Infected sebaceous cyst mid back. POSTOPERATIVE DIAGNOSIS Infected sebaceous cyst mid back. PROCEDURE PERFORMED I&D infected sebaceous cyst mid back. SURGEON Junior Stauffer MD GRAIN [employer]ADER ABRIL Joshi ANESTHESIA Local COMPLICATIONS None INDICATIONS Mr. Guerra is a pleasant 56-year-old gentleman admitted for COPD exacerbation. During his hospitalization, he developed a painful red mass in his mid central back. He was seen and evaluate Dr. Gilliland who diagnosed him with an infected sebaceous cyst. Surgical consultation was requested for I&D. DETAILS The patient remained in his hospital room. Consent was obtained. Time-out was taken. The mid back was prepped and draped in standard surgical fashion. 1% lidocaine with epinephrine injected into the skin and subcutaneous tissue around the mass. An elliptical skin incision was made directly overlying the head of the mass. Pus and sebaceous cyst material came out. The wound was then cleansed with hydrogen peroxide and local anesthetic. The wound was left open as there was a large defect that did not require packing. Sterile dressings were applied. The patient was advised shower daily and watch the wound and cover with a dry dressing. Home health was ordered to assist the patient with care of the wound. The patient already has a prescription for antibiotics by Dr. Gilliland. We will go ahead and give him a pain prescription as well. He can follow up in the office next week for a wound check. MD BLANCHE Mariano/CHAD /12:09 PM /8:59 AM
== END 2016-08-25 13:26 | disposition home health service (06) | DRG 291 ==
LOC: NEPC 13:27 → NEDA 16:14 → N04B 20:42
PROVIDERS: ADMIT Family Medicine; ATTEND Family Medicine
PROC: 0H96XZZ Drainage of Back Skin, External Approach (ICD-10-PCS; principal; 2016-08-25)
DX: I50.9 Heart failure, unspecified (principal); J96.21 Acute and chronic respiratory failure with hypoxia; I27.81 Cor pulmonale (chronic); J44.1 Chronic obstructive pulmonary disease with (acute) exacerbation; E11.65 Type 2 diabetes mellitus with hyperglycemia; Z68.41 Body mass index [BMI] 40.0-44.9, adult; Z79.4 Long term (current) use of insulin; J40 Bronchitis, not specified as acute or chronic; L72.3 Sebaceous cyst; Z91.19 Patient's noncompliance with other medical treatment and regimen; G47.33 Obstructive sleep apnea (adult) (pediatric); Z99.81 Dependence on supplemental oxygen; F40.240 Claustrophobia; I10 Essential (primary) hypertension; F17.210 Nicotine dependence, cigarettes, uncomplicated; E66.9 Obesity, unspecified; R56.9 Unspecified convulsions; F10.10 Alcohol abuse, uncomplicated
CPT/HCPCS: 10061; 36600; 71010; 71275; 74177; 80048; 80053; 80307; 82550; 82805; 82948; 83036; 83540; 83550; 83735; 83880; 84484; 85007; 85025; 85027; 85060; 85610; 85730; 93306; 94640; 94664; 96374; J0456; J1650; J1815; J1940; J7050; Q9967

== ENCOUNTER 2016-09-12 16:13 | Inpatient (IN) | payer OTHER ==
[~2016-09-12] VITALS: Ht 177.8 cm; Wt 127.3 kg
[~2016-09-12 16:13] MED LIST changes: +AZIT250T3 PO; +BUME1TAB26 PO; -FURO40TA PO; -PANT40TA3 PO
[2016-09-12 16:15] VITALS: BP 130/69; PULSE 117; RESP 24; TEMP 97.5; O2SAT 89
--- NOTE | 2016-09-12 16:20 | PD ---
Physical Exam Date Seen by Provider: September 12, 2016 Time Seen by Provider: 16:19 Narrative 56 yo male that presents to the ED for SOB and lower leg edema. Dr Gilliland told him to come here. History of CHF. Was told to come here to get admitted. Been taking meds with minimal relief. SOB with exertion. Cannot walk. Vitals sign stable. Patient awaiting bed placement. Data Data Last Documented VS Vital Signs Date Time Temp Pulse Resp B/P Pulse Ox O2 Delivery O2 Flow Rate FiO2 09/12/16 16:15 97.5 117 24 130/69 89 MDM Medical Record Reviewed: Yes Supervised Visit with MERON: Rojas Luque September 12, 2016 16:20
[2016-09-12 16:40] VITALS: PULSE 105; RESP 18; O2SAT 92
[2016-09-12 16:50] LABS: MEAN CORPUSCULAR HGB CONC 28.9 % (32.0-36.0)
[2016-09-12] MEDS: RESP: ALBUTEROL 2.5 MG/IPRATROPIUM 0.5 MG NEB (SCH) INH ×2 (16:53→16:54)
[2016-09-12 16:54] VITALS: O2SAT 93
[2016-09-12] MEDS ORDERED: SODIUM CHLORIDE 0.9% FLUSH 10 ML FLUSH IVF PRN ×2 (17:00→19:00)
--- NOTE | 2016-09-12 17:01 | PD ---
HPI Chief Complaint: Respiratory Symptoms Time Seen by Provider: 16:40 Travel History International Travel<30 days: No Contact w/Intl Traveler<30days: No Traveled to known affect area: No History of Present Illness HPI Patient comes in to the emergency department after being seen his primary care doctors today. Patient complaining of painful swelling in his bilateral lower extremities and shortness of breath. Patient has pain leg is burning like sensation. Patient states that he was admitted to the hospital for this earlier this month and subsequently discharged. Patient states he's been using his nebulizer intermittently with minimal to no improvement and taking his diuretic as prescribed but is uncertain if he took it today or if his last dose was 2 days ago. Patient states symptoms seem to be getting worse, but his edema in his bilateral lower extremities has improved from previous visit. Patient's of the past 3 days he also had some intermittent chest pain on the left is sharp stabbing like in nature without radiation. Denies any fevers, nausea, vomiting, or abdominal pain. Patient has a history of anasarca, alcohol abuse, leukocytosis, CHF, dysphagia, hypertension, CHF, COPD, pneumonia , seizure disorder, diabetes mellitus, emphysema, and hyperglycemia. PFSH Past Medical History Hx Anticoagulant Therapy: Yes (ASA) Arthritis: No Asthma: Yes Autoimmune Disease: No Anxiety: Yes Depression: No Heart Rhythm Problems: No Cancer: No Cardiac Catheterization: No Cardiovascular Problems: Yes (CHF; HTN, IA) Chest Pain: Yes Congestive Heart Failure: Yes COPD: Yes Cerebrovascular Accident: No Coronary Artery Disease: No Diabetes: Yes Diminished Hearing: No Endocrine: Yes Gastrointestinal Disorders: Yes GERD: Yes Genitourinary: No Headaches: No Hiatal Hernia: No Hypertension: Yes Immune Disorder: No Implanted Vascular Access Dvce: No Musculoskeletal: Yes Neurologic: Yes Psychiatric: No Reproductive: No Respiratory: Yes (ASTHMA, COPD) Migraines: No Seizures: Yes Thyroid Disease: No Ulcer: No Tetanus Vaccination: Unknown Past Surgical History Abdominal Surgery: No Coronary Artery Bypass Graft: No Other Surgery: Yes (wart removed right leg) Social History Alcohol Use: No Tobacco Use: Yes Substance Use: No Allergies-Medications (Allergen,Severity, Reaction): Coded Allergies: No Known Allergies (Verified , 09/12/16) Reported Meds & Prescriptions Reported Meds & Active Scripts Active Trazodone (Trazodone HCl) 50 Mg Tab 50 Mg PO HS 90 Days Aldactone (Spironolactone) 25 Mg Tab 25 Mg PO BID@09,18 90 Days Senna Plus 8.6-50 mg (Sennosides-Docusate Sodium) 1 Tab Tab 1 Tab PO BID 90 Days Reported Bumetanide 1 Mg Tab 1 Mg PO BID Protonix (Pantoprazole Sodium) 40 Mg Tab 40 Mg PO DAILY Hydralazine HCl 25 Mg Tablet 25 Mg PO TID Neurontin (Gabapentin) 300 Mg Cap 300 Mg PO DAILY Isosorbide Mononitrate ER (Isosorbide Mononitrate) 30 Mg Alexsander 30 Mg PO DAILY Atorvastatin (Atorvastatin Calcium) 40 Mg Tab 40 Mg PO HS Lantus Solostar Pen Inj (Insulin Glargine) 300 Unit/3 Ml Pen 60 Units SQ BID Lyrica (Pregabalin) 50 Mg Cap 50 Mg PO TID PRN Duoneb (Ipratropium-Albuterol Neb) 0.5-2.5 Mg/3 Ml Neb 1 Nebule NEB QID PRN Tramadol (Tramadol HCl) 50 Mg Tab 50 Mg PO BID PRN Spiriva Handihaler (Tiotropium Inh) 18 Mcg Cap 18 Mcg INH DAILY 1 capsule = 18 mcg Potassium Chloride ER (Potassium Chloride) 10 Meq Tab 10 Meq PO BID Folate (Folic Acid) 1 Mg Tab 1 Mg PO DAILY Docusate Sodium 100 Mg Cap 100 Mg PO BID Bupropion HCl 100 Mg Tab 100 Mg PO BID Review of Systems Except as stated in HPI: all other systems reviewed are Neg Physical Exam Narrative GENERAL: Well-developed, overly nourished, in no acute distress, and non-ill appearing. SKIN: Focused skin assessment warm and dry. HEAD: Atraumatic. Normocephalic. EYES: Pupils equal and round. EOMI. No scleral icterus. No injection or drainage. ENT: No nasal bleeding or discharge. Mucous membranes pink and moist. NECK: Trachea midline. No JVD. Supple. No nuclear rigidity. CARDIOVASCULAR: Regular rate and rhythm. No murmur appreciated. RESPIRATORY: No accessory muscle use. No respiratory distress. Crackles and wheezing heard throughout. GASTROINTESTINAL: Abdomen soft, non-tender, nondistended. Hepatic and splenic margins not palpable. No pulsatile mass. MUSCULOSKELETAL: No obvious deformities. No clubbing. No cyanosis. Tight edema noted bilateral lower extremities with some erythematous patient reports is chronic and is tender to palpation. Full range of motion. NEUROLOGICAL: Awake and alert. No obvious cranial nerve deficits. Motor grossly within normal limits. Normal speech. PSYCHIATRIC: Appropriate mood and affect; insight and judgment normal. Data Data Last Documented VS Vital Signs Date Time Temp Pulse Resp B/P Pulse Ox O2 Delivery O2 Flow Rate FiO2 09/12/16 18:27 105 18 143/67 94 Nasal Cannula 2 09/12/16 16:15 97.5 Orders Complete Blood Count With Diff (09/12/16 16:47) Basic Metabolic Panel (Bmp) (09/12/16 16:47) B-Type Natriuretic Peptide (09/12/16 16:47) Act Partial Throm Time (Ptt) (09/12/16 16:47) Prothrombin Time / Inr (Pt) (09/12/16 16:47) Magnesium (Mg) (09/12/16 16:47) Ckmb (Isoenzyme) Profile (09/12/16 16:47) Troponin I (09/12/16 16:47) Iv Access Insert/Monitor (09/12/16 16:47) Electrocardiogram (09/12/16 16:47) Ecg Monitoring (09/12/16 16:47) Oximetry (09/12/16 16:47) Oxygen Administration (09/12/16 16:47) Chest, Single Ap (09/12/16 16:47) Sodium Chloride 0.9% Flush (Ns Flush) (09/12/16 17:00) Albuterol-Ipratropium Neb (Duoneb Neb) (09/12/16 17:00) Insulin Human Regular Inj (Novolin R Inj (09/12/16 18:30) Admit Order (Ed Use Only) (09/12/16 18:50) Admit Order (Ed Use Only) (09/12/16 ) Flat Drier / Telemetry ARIEL.Q8H (09/12/16 18:53) Vital Signs (Adult) Q4H (09/12/16 18:53) Activity Oob With Assistance (09/12/16 18:53) Bedside Glucose ARIEL.AC&HS (09/12/16 18:53) Notify Dr: Other (09/12/16 18:53) ^ Saline Lock (09/12/16 18:53) Resp Oxygen Shorty C Titrat 1-4 L (09/12/16 ) Notify Dr: Other (09/12/16 18:53) Sodium Chloride 0.9% Flush (Ns Flush) (09/12/16 21:00) Sodium Chloride 0.9% Flush (Ns Flush) (09/12/16 19:00) Labs Laboratory Tests Test 09/12/16 16:45 White Blood Count 8.7 TH/MM3 Red Blood Count 5.62 MIL/MM3 Hemoglobin 10.5 GM/DL Hematocrit 36.4 % Mean Corpuscular Volume 64.7 FL Mean Corpuscular Hemoglobin 18.7 PG Mean Corpuscular Hemoglobin 28.9 % Concent Red Cell Distribution Width 22.0 % Platelet Count 325 TH/MM3 Mean Platelet Volume 8.5 FL Neutrophils (%) (Auto) 67.8 % Lymphocytes (%) (Auto) 16.1 % Monocytes (%) (Auto) 12.3 % Eosinophils (%) (Auto) 2.5 % Basophils (%) (Auto) 1.3 % Neutrophils # (Auto) 5.9 TH/MM3 Lymphocytes # (Auto) 1.4 TH/MM3 Monocytes # (Auto) 1.1 TH/MM3 Eosinophils # (Auto) 0.2 TH/MM3 Basophils # (Auto) 0.1 TH/MM3 CBC Comment AUTO DIFF Differential Total Cells 100 Counted Neutrophils % (Manual) 59 % Band Neutrophils % 5 % Lymphocytes % 18 % Monocytes % 14 % Eosinophils % 3 % Neutrophils # (Manual) 5.7 TH/MM3 Myelocytes 1 % Differential Comment FINAL DIFF MANUAL Platelet Estimate NORMAL Platelet Morphology Comment NORMAL Ovalocytes 1+ Prothrombin Time 10.7 SEC Prothromb Time International 1.0 RATIO Ratio Activated Partial 28.1 SEC Thromboplast Time Sodium Level 131 MEQ/L Potassium Level 3.8 MEQ/L Chloride Level 88 MEQ/L Carbon Dioxide Level 37.9 MEQ/L Anion Gap 5 MEQ/L Blood Urea Nitrogen 18 MG/DL Creatinine 0.85 MG/DL Estimat Glomerular Filtration 94 ML/MIN Rate Random Glucose 393 MG/DL Calcium Level 9.0 MG/DL Magnesium Level 2.0 MG/DL Total Creatine Kinase 19 U/L Troponin I LESS THAN 0.02 NG/ML B-Type Natriuretic Peptide 100 PG/ML MDM Medical Decision Making Medical Screen Exam Complete: Yes Emergency Medical Condition: Yes Medical Record Reviewed: Yes Interpretation(s) EKG reviewed by Dr. Borja shows sinus tachycardia with ventricular rate of 104. No STEMI. Chest x-ray read by the radiologist shows: Underinflated exam with mild bibasilar opacity representing either atelectasis or consolidation. However, atelectasis is favored based on the appearance and underinflation. Differential Diagnosis CHF exacerbation, COPD exacerbation, electrolyte abnormality, pneumonia, medical noncompliance, acute coronary syndrome, noncardiac chest pain, other Narrative Course 1800 patient's sleeping upon myself entering the room. Patient awoke and patient reports improvement of symptoms status post DuoNeb and Lasix. Patient was seen and examined. Initial laboratory and radiological obtained and reviewed. IV is established, patient was placed on cardiac monitoring, as well as supplemental O2. Patient was given DuoNeb and IV Lasix and patient reports improve his symptoms. Discussed patient with Dr. Borja, who saw and evaluated the patient and recommends having patient admitted. Discussed all findings and plan care with patient, who is agreeable for admission. All questions were answered. Patient remained stable throughout ED course. Physician Communication Physician Communication [phone] Gilliland, who is agreeable to admit the patient. Diagnosis Primary Impression: Acute exacerbation of chronic obstructive pulmonary disease (COPD) Additional Impressions: Hyponatremia Anasarca Admitting Information Admitting Physician Requests: Admit Condition: Stable Rashid Amaro September 12, 2016 17:01
[2016-09-12] MEDS ORDERED: ISOS30TA3 PO (17:08)
[2016-09-12] MEDS ORDERED: ATOR40TA16 PO (17:08)
[2016-09-12] MEDS ORDERED: HYDR-3799 PO (17:10)
[2016-09-12] MEDS ORDERED: NEUR300C PO (17:10)
[2016-09-12] MEDS ORDERED: PROT40TA PO (17:13)
--- NOTE | 2016-09-12 17:16 | RADRPT ---
EXAM DATE/TIME: 09/12/2016 17:07 [facility] COMPARISON: CHEST SINGLE AP, August 19, 2016, 14:06. INDICATIONS : Short of breath. MEDICAL HISTORY : Chronic obstructive pulmonary disease. diabetes SURGICAL HISTORY : None. ENCOUNTER: Initial ACUITY: 1 day PAIN SCORE: 0/10 LOCATION: Bilateral chest FINDINGS: Portable AP views of the chest demonstrates cardiac silhouette size at the upper limits for normal. L ungs are underinflated with bibasilar opacity. No pleural effusion or pneumothorax is identified. Bon es and soft tissues demonstrate no acute finding. CONCLUSION: Underinflated exam with mild bibasilar opacity representing either atelectasis or consolidation. Frankel jeanette, atelectasis is favored based on the appearance and underinflation. Harley Rojo MD on September 12, 2016 at 17:14 Board Certified Radiologist. This report was verified electronically.
[2016-09-12 17:25] LABS: AUTOMATED NEUTROPHIL # 5.9 TH/MM3 (1.8-7.7); BASOPHIL # 0.1 TH/MM3 (0-0.2); BASOPHIL % 1.3 % (0.0-2.0); EOSINOPHIL # 0.2 TH/MM3 (0-0.4); EOSINOPHIL % 2.5 % (0.0-4.0); HEMATOCRIT 36.4 % (39.0-51.0); LYMPH % 16.1 % (9.0-44.0); LYMPHOCYTE # 1.4 TH/MM3 (1.0-4.8); MEAN CELL VOLUME 64.7 FL (80.0-100.0); MEAN CORPUSCULAR HEMOGLOBIN 18.7 PG (27.0-34.0); MONO % 12.3 % (0.0-8.0); NEUT % 67.8 % (16.0-70.0); PLATELET COUNT 325 TH/MM3 (150-450); RED BLOOD COUNT 5.62 MIL/MM3 (4.50-5.90); WHITE BLOOD COUNT 8.7 TH/MM3 (4.0-11.0)
[2016-09-12 17:28] LABS: HEMO FLAGS AUTO DIFF
[2016-09-12] MEDS ORDERED: BUME1TAB PO (17:31)
[2016-09-12 17:45] LABS: ANION GAP 5 MEQ/L (5-15); BICARBONATE 37.9 MEQ/L (21.0-32.0); BLOOD UREA NITROGEN 18 MG/DL (7-18); CHLORIDE 88 MEQ/L (98-107); GLOMERULAR FILTRATION RATE 94 ML/MIN (>89); POTASSIUM 3.8 MEQ/L (3.5-5.1); SODIUM (NA) 131 MEQ/L (136-145)
[2016-09-12 17:52] LABS: APTT (PATIENT) 28.1 SEC (24.3-30.1); BANDS 5 % (0-6); EOSINOPHILS 3 % (0-4); MYELOCYTES 1 % (0-0); NEUTROPHIL # MANUAL DIFF 5.7 TH/MM3 (1.8-7.7); OVALOCYTES 1+ (NORMAL); PLATELET ESTIMATE SMEAR NORMAL (NORMAL); PLATELET MORPHOLOGY NORMAL (NORMAL); POLYS (SEG NEUTROPHILS) 59 % (16-70); PROTHROMBIN TIME - PATIENT 10.7 SEC (9.8-11.6); SCAN/DIFF FINAL DIFF MANUAL; WBC DIFF SAMPLE 100
[2016-09-12 17:53] LABS: CREATINE KINASE 19 U/L (39-308)
[2016-09-12 18:27] VITALS: BP 143/67; PULSE 105; RESP 18; O2SAT 94
[2016-09-12] MEDS ORDERED: INSULIN HUMAN REGULAR 1,000 UNITS/10 ML VIAL IV PUSH ONE (18:30)
[2016-09-12 19:13] VITALS: BP 145/67; PULSE 104; RESP 22; O2SAT 94
[2016-09-12] MEDS ORDERED: ONDANSETRON HCL 4 MG/2 ML VIAL IVP PRN (19:45)
[2016-09-12] MEDS ORDERED: traMADol HCL 50 MG TAB PO PRN (19:45)
[2016-09-12] MEDS ORDERED: GLUCAGON 1 MG/ML VIAL OTHER PRN (19:45)
[2016-09-12] MEDS ORDERED: SODIUM CHLORIDE 0.9% FLUSH 10 ML FLUSH IV FLUSH PRN (19:45)
[2016-09-12] MEDS ORDERED: PREGABALIN 25 MG CAP PO PRN (19:45)
[2016-09-12] MEDS ORDERED: NALOXONE HCL 0.4 MG/ML AMP IV PRN (19:45)
[2016-09-12] MEDS ORDERED: DEXTROSE 50% IN WATER 50 ML VIAL(D50) IV PRN (19:45)
[2016-09-12] MEDS ORDERED: ZOLPIDEM TARTRATE 5 MG TAB PO PRN (19:45)
[2016-09-12] MEDS ORDERED: cloNIDine HCL 0.1 MG TAB PO PRN (19:45)
[2016-09-12] MEDS ORDERED: ACETAMINOPHEN 325 MG TAB PO PRN (19:45)
[2016-09-12] MEDS ORDERED: BISACODYL 10 MG SUPP RECTAL PRN (19:45)
[2016-09-12] MEDS ORDERED: SODIUM CHLORIDE 0.9% FLUSH 10 ML FLUSH IV FLUSH SCH (21:00)
[2016-09-12] MEDS ORDERED: DOCUSATE SODIUM 50 MG/SENNA 8.6 MG TAB PO SCH (21:00)
[2016-09-12] MEDS: RESP: ALBUTEROL 2.5 MG/IPRATROPIUM 0.5 MG NEB (SCH) NEB (21:18)
[2016-09-12 21:19] VITALS: O2SAT 93
[2016-09-12] MEDS: SODIUM CHLORIDE 0.9% FLUSH 10 ML FLUSH IV FLUSH SCH (23:34)
[2016-09-12] MEDS: DOCUSATE SODIUM 100 MG CAP PO SCH (23:34)
[2016-09-12] MEDS: traZODone HCL 50 MG TAB PO SCH (23:34)
[2016-09-12] MEDS: PANTOPRAZOLE SODIUM 40 MG VIAL IV PUSH SCH (23:34)
[2016-09-12] MEDS: buPROPion HCL 100 MG TAB PO SCH (23:35)
[2016-09-12] MEDS: ATORVASTATIN 40 MG TAB PO SCH (23:35)
[2016-09-12] MEDS: POTASSIUM CHLORIDE 10 MEQ CONTROLLED RELEASE TAB PO SCH (23:35)
[2016-09-12] MEDS: DOCUSATE SODIUM 50 MG/SENNA 8.6 MG TAB PO SCH (23:35)
[2016-09-12] MEDS: HEPARIN SODIUM - SQ 10,000 UNITS/ML VIAL SQ SCH (23:35)
[2016-09-12] MEDS: AZITHROMYCIN INJ 500 MG in SODIUM CHLOR 0.9% 250 ML INJ 250 ML IV SCH (23:36)
[2016-09-12] MEDS: INSULIN ASPART SUPPLEMENTAL SCALE SQ SCH (23:42)
[2016-09-12] MEDS: INSULIN DETEMIR 100 UNITS/ML VIAL SQ SCH (23:43)
[2016-09-13] VITALS (12 sets, daily range): BP systolic 120–173; BP diastolic 56–82; PULSE 67–117; RESP 16–20; TEMP 95.9–98.5; O2SAT 91–96
[2016-09-13] MEDS: oxyCODONE/ACETAMINOPHEN 5 MG/325 MG TAB PO PRN ×4 (06:01→20:44)
[2016-09-13] MEDS: INSULIN ASPART SUPPLEMENTAL SCALE SQ SCH ×4 (07:28→20:52)
[2016-09-13] MEDS: RESP: ALBUTEROL 2.5 MG/IPRATROPIUM 0.5 MG NEB (SCH) NEB ×4 (07:53→19:45)
[2016-09-13] MEDS: INSULIN DETEMIR 100 UNITS/ML VIAL SQ SCH ×2 (09:19→20:53)
[2016-09-13] MEDS: SODIUM CHLORIDE 0.9% FLUSH 10 ML FLUSH IV FLUSH SCH ×2 (09:19→20:47)
[2016-09-13] MEDS: SPIRONOLACTONE 25 MG TAB PO SCH ×2 (09:20→17:24)
[2016-09-13] MEDS: ISOSORBIDE MONONITRATE 30 MG TAB PO SCH (09:20)
[2016-09-13] MEDS: DOCUSATE SODIUM 50 MG/SENNA 8.6 MG TAB PO SCH ×2 (09:20→20:45)
[2016-09-13] MEDS: DOCUSATE SODIUM 100 MG CAP PO SCH ×2 (09:20→20:46)
[2016-09-13] MEDS: HEPARIN SODIUM - SQ 10,000 UNITS/ML VIAL SQ SCH ×2 (09:20→20:47)
[2016-09-13] MEDS: BUMETANIDE INJ 1 MG/4 ML VIAL IV PUSH SCH ×3 (09:20→20:47)
[2016-09-13] MEDS: hydrALAZINE HCL 25 MG TAB PO SCH ×3 (09:20→17:24)
[2016-09-13] MEDS: POTASSIUM CHLORIDE 10 MEQ CONTROLLED RELEASE TAB PO SCH ×2 (09:20→20:46)
--- NOTE | 2016-09-13 09:26 | EKG ---
Date Performed: 09/12/2016 Time Performed: 16:47:46 PTAGE: 56 years EKG: Sinus rhythm WITH RAPID VENTRICULAR RESPONSE ABNORMAL RHYTHM ECG PREVIOUS TRACING : 07/30/2016 14.08 DOCTOR: Ramses Stevens Interpretating Date/Time 09/13/2016 09:25:42
--- NOTE | 2016-09-13 09:30 | MH ---
cc: JOZEF WOOD MD DATE OF ADMISSION: 09/12/2016 CHIEF COMPLAINT Edema, shortness of breath, tachycardia and weakness. HISTORY OF PRESENT ILLNESS Madan Guerra is a 56-year-old male who I have been seeing as an outpatient. I have seen him basically on a weekly basis for the past 5 weeks due to fluid overload and severe hyperglycemia. He started smoking again and developed increased congestion and has been drinking excess fluids. His sugars have been at home 300s to mostly 400s with subsequent polydipsia. He has a florist at home who has been helping him and he has suffered from chronic pain syndrome. He had recently been on Percocet and I have taken him off as he had been using marijuana. We placed him on tramadol with some effect and he had some increased life stressors and started smoking more and ended up seeing me again in the office yesterday. He was tachycardic at 120s, short of breath and having difficulty walking. He was in severe fluid overload and I suggested he go to [facility]. I was subsequently called for admission. I was called by the PA and he notes severe shortness of breath and suggested I admit the patient. He was given in the emergency room IV diuretics and the patient now reports he is feeling somewhat better, however, still in the state of severe edema and fluid overload with cough and congestion. He states the breathing treatments seem to help some. LABORATORY DATA Sodium 131, creatinine normal. Troponin normal. INR 1.0. CBC shows hemoglobin of 10.5, platelets 325, WBCs 8.7. PAST MEDICAL HISTORY 1. Diabetes uncontrolled. 2. Smoking. 3. Coronary artery disease. 4. CHF. 5. Hypertension. 6. Cor pulmonale. 7. Edema. 8. Sleep apnea. 9. Constipation. 10. Respiratory failure. 11. Hypercarbia. 12. Emphysema. 13. Seizures. 14. Hyponatremia. SOCIAL HISTORY He had been homeless at one point, however, recently living in a trailer, has a florist who helps him to go to his appointments and brings him into my office. One pack per day smoker with history of cannabis use. Occasional alcoholic beverage. PAST SURGICAL HISTORY He reports none. FAMILY HISTORY Unknown mother and father family history. MEDICATION Home medications: 1. Bumex. 2. Protonix. 3. Hydralazine. 4. Neurontin. 5. Imdur. 6. Atorvastatin. 7. Lantus 60 units b.i.d. 8. Lyrica. 9. DuoNeb. 10.Tramadol. 11.Spireva. 12.Potassium. 13.Folate. 14.Docusate. 15.Buproprion 100 mg b.i.d. ALLERGIES NO KNOWN DRUG ALLERGIES. PHYSICAL EXAMINATION VITAL SIGNS: Temperature 98.5, pulse 77, previous pulse was 117, blood pressure is 157/76, O2 is 93% on 3 liters. Respirations are 20. GENERAL: In general he is an alert male sitting up, hunched over and coughing. He is short of breath with speaking. He speaks in two to three word sentences. CHEST: Distant breath sounds, very harsh cough with deep breathing, has expiratory wheezes. CARDIOVASCULAR: Regular rate and rhythm. No murmurs, rubs, clicks or gallops. ABDOMEN: Abdomen is obese and distended. EXTREMITIES: 3+ edema to the groin bilaterally. He has stasis changes in the legs bilaterally. ASSESSMENT 1. Respiratory failure. 2. Hypercarbia. 3. COPD. 4. Cor pulmonale. 5. CHF. 6. Hypertension. 7. Severe hyperglycemia. 8. Diabetes. 9. Smoker. 10. Seizures. PLAN 1. IV Bumex 1 mg q.8 hours. 2. Insulin sliding scale. 3. Consult nephrology for fluid overload. 4. Azithromycin 500 mg IV daily. 5. DuoNeb q.6 hours. 6. Lipitor. 7. Heparin 5000 units subcu q.12 hours for DVT prophylaxis. 8. Levemir 60 units b.i.d. 9. Telemetry. 10. Nasal cannula O2. 11. Observation admission. 12. An a.m. CBC and BMP. Jozef Wood MD RP/NERISSA /8:48 AM /9:06 AM
[2016-09-13] MEDS: buPROPion HCL 100 MG TAB PO SCH ×2 (11:25→20:45)
[2016-09-13 12:45] LABS: POTASSIUM 4.2 MEQ/L (3.5-5.1)
[2016-09-13] MEDS ORDERED: BUMETANIDE INJ 1 MG/4 ML VIAL IV PUSH SCH (18:00)
--- NOTE | 2016-09-13 19:18 | MB ---
cc: OTTO SERRANO MD DATE OF CONSULTATION 09/13/2016 REASON FOR CONSULTATION Generalized edema for evaluation. HISTORY OF PRESENT ILLNESS This is a 56-year-old male with past medical history of diabetes mellitus, ischemic heart disease, congestive heart failure, sleep apnea, emphysema, came to the hospital with complaint of worsening shortness of breath and edema. I was called to see the patient because of worsening edema. The patient has normal creatinine 0.7-0.8. He was recently admitted and discharged on August 25. At that time he was admitted with the same problem and according to the patient he went home and he was taking his diuretic but it was not working and the swelling was not going down and eventually he came back to the hospital. The patient has been drinking a lot of fluid. I discussed with him and he says that he feels very thirsty and part of this is because his diabetes is uncontrolled and partly because of diuretics. He denies any dysuria, hematuria. Denies any difficulty in passing urine. PAST MEDICAL HISTORY 1. Hypertension. 2. Ischemic heart disease. 3. Congestive heart failure. 4. Diabetes mellitus. 5. Chronic edema. 6. Sleep apnea. 7. Emphysema. 8. Seizure disorder. PAST SURGICAL HISTORY None. REVIEW OF SYSTEMS The patient has generalized weakness, feeling tired. Has worsening shortness of breath associated with cough and whitish sputum. No chest pain. No palpitation. Has increasing swelling in his legs and in the thigh area. No dysuria, hematuria. No difficulty in passing urine. Denies any nausea, vomiting. No abdominal pain. No history of diarrhea. SOCIAL HISTORY The patient lives in a trailer. Smokes one pack per day with a history of cannabis use. Occasional alcoholic beverages. FAMILY HISTORY Noncontributory. ALLERGIES NO KNOWN DRUG ALLERGIES. MEDICATIONS Currently he is on following medications: 1. Wellbutrin 100 mg b.i.d. 2. Colace 100 mg b.i.d. 3. KCl 10 mEq b.i.d. 4. Amira-Colace 1 tablet twice a day. 5. Aldactone 25 mg twice a day. 6. Levemir 6 units subcu b.i.d. 7. Imdur 30 mg once a day. 8. Lipitor 40 mg q.h.s. 9. Desyrel 50 mg q.h.s. 10. DuoNeb nebulizer. 11. Heparin 5000 subcu q. 12-hour. 12. Azithromycin 500 mg q. 24-hour. 13. Insulin aspart sliding scale. 14. Protonix 40 mg q.24 h. 15. Bumex 1 mg t.i.d. 16. Hydralazine 25 mg t.i.d. 17. Dulcolax as needed. 18. Percocet as needed. PHYSICAL EXAMINATION GENERAL: On examination the patient is awake, alert, sitting in bed and getting the nebulizer treatment. VITAL SIGNS: His last blood pressure is 130/56 temperature 97.6, oxygen saturation 95-96%. HEENT: Pupils equally reacting to light. Nonicteric sclera. Conjunctivae normal. NECK: Supple. JVD slightly elevated. LUNGS: Patient has bilateral decreased air entry with basilar rales. Has diffuse wheezing. HEART: S1-S2 regular rhythm. ABDOMEN: Distended, soft, lax. There is some subcutaneous edema. EXTREMITIES: Both legs he has 2+ edema going up to the mid thigh area. LABORATORY DATA Investigation WBC count is 8.7, hemoglobin 10.5, platelet count 325, neutrophils 67.8%. Sodium 133, potassium 4.2, chloride 91, bicarb 41, BUN 13, creatinine 0.8, glucose 274. INR 1.0. Urinalysis showing protein of 30. Creatinine kinase is 19. Troponin I is 0.02. Albumin was 3.6, this was on August 18. IMAGING STUDIES The patient has chest x-ray done which shows mild bibasilar opacity, atelectasis with consolidation. Echocardiogram was done on August 19 and it shows ejection fraction of 55-60%. Left atrium was normal. Right atrium was also normal. ASSESSMENT/PLAN 1. Generalized edema with anasarca. 2. Possible pneumonia or bronchitis. 3. Respiratory failure with high pCO2. 4. Diabetes mellitus. 5. Hypertension. 6. COPD and chronic smoker. 7. History of seizure disorder. The patient has history of CO2 retention and his bicarb is high because of that. To neutralize the pH the patient needs more aggressive diuresis and also he will need some fluid restriction. I will change his Bumex to 2 mg b.i.d. Continue spironolactone. If the diuresis is not much, then I will consider adding metolazone. Thank you for the consultation. I discussed with the patient to restrict oral fluid intake which is also contributing to his edema. Thank you for the consultation. I will follow the patient while in the hospital. MD NAY Toro/MARIA C /4:24 PM /6:49 PM
[2016-09-13] MEDS: ATORVASTATIN 40 MG TAB PO SCH (20:44)
[2016-09-13] MEDS: traZODone HCL 50 MG TAB PO SCH (20:44)
[2016-09-13] MEDS: PANTOPRAZOLE SODIUM 40 MG VIAL IV PUSH SCH (20:46)
[2016-09-13] MEDS: AZITHROMYCIN INJ 500 MG in SODIUM CHLOR 0.9% 250 ML INJ 250 ML IV SCH (20:48)
[2016-09-13 21:07] LABS: MEAN CORPUSCULAR HGB CONC 28.5 % (32.0-36.0)
[2016-09-14] VITALS (9 sets, daily range): BP systolic 111–146; BP diastolic 55–67; PULSE 95–109; RESP 16–20; TEMP 97.6–98.5; O2SAT 91–95
[2016-09-14] MEDS: oxyCODONE/ACETAMINOPHEN 5 MG/325 MG TAB PO PRN ×6 (00:57→22:49)
[2016-09-14] MEDS: RESP: ALBUTEROL 2.5 MG/IPRATROPIUM 0.5 MG NEB (SCH) NEB ×4 (07:15→19:15)
[2016-09-14] MEDS: INSULIN ASPART SUPPLEMENTAL SCALE SQ SCH ×4 (07:27→21:29)
[2016-09-14 07:38] LABS: BASOPHIL # 0.1 TH/MM3 (0-0.2); BASOPHIL % 1.2 % (0.0-2.0); EOSINOPHIL # 0.3 TH/MM3 (0-0.4); EOSINOPHIL % 3.7 % (0.0-4.0); HEMATOCRIT 34.6 % (39.0-51.0); HEMO FLAGS DIFF FINAL; LYMPH % 19.9 % (9.0-44.0); LYMPHOCYTE # 1.5 TH/MM3 (1.0-4.8); MEAN CELL VOLUME 64.7 FL (80.0-100.0); MEAN CORPUSCULAR HEMOGLOBIN 18.4 PG (27.0-34.0); MONO % 10.7 % (0.0-8.0); NEUT % 64.5 % (16.0-70.0); PLATELET COUNT 284 TH/MM3 (150-450); RED BLOOD COUNT 5.36 MIL/MM3 (4.50-5.90); RED CELL DISTRIBUTION WIDTH 20.8 % (11.6-17.2); WHITE BLOOD COUNT 7.7 TH/MM3 (4.0-11.0)
[2016-09-14 07:59] LABS: BICARBONATE 40.3 MEQ/L (21.0-32.0); POTASSIUM 3.9 MEQ/L (3.5-5.1)
[2016-09-14] MEDS: SODIUM CHLORIDE 0.9% FLUSH 10 ML FLUSH IV FLUSH SCH ×2 (09:08→21:30)
[2016-09-14] MEDS: ISOSORBIDE MONONITRATE 30 MG TAB PO SCH (09:08)
[2016-09-14] MEDS: hydrALAZINE HCL 25 MG TAB PO SCH ×3 (09:08→18:07)
[2016-09-14] MEDS: buPROPion HCL 100 MG TAB PO SCH ×2 (09:08→21:27)
[2016-09-14] MEDS: DOCUSATE SODIUM 100 MG CAP PO SCH ×2 (09:08→21:28)
[2016-09-14] MEDS: POTASSIUM CHLORIDE 10 MEQ CONTROLLED RELEASE TAB PO SCH ×2 (09:09→21:27)
[2016-09-14] MEDS: DOCUSATE SODIUM 50 MG/SENNA 8.6 MG TAB PO SCH ×2 (09:09→21:27)
[2016-09-14] MEDS: HEPARIN SODIUM - SQ 10,000 UNITS/ML VIAL SQ SCH ×2 (09:09→21:28)
[2016-09-14] MEDS: BUMETANIDE INJ 1 MG/4 ML VIAL IV PUSH SCH ×2 (09:10→21:30)
[2016-09-14] MEDS: INSULIN DETEMIR 100 UNITS/ML VIAL SQ SCH ×2 (09:11→21:29)
[2016-09-14] MEDS: SPIRONOLACTONE 25 MG TAB PO SCH ×2 (09:11→18:07)
--- NOTE | 2016-09-14 12:19 | HHI.NPPN ---
Subjective History of Present Illness 56-year-old male with past medical history of diabetes mellitus, ischemic heart disease, congestive heart failure, sleep apnea, emphysema, came to the hospital with complaint of worsening shortness of breath and edema. I was called to see the patient because of worsening edema. The patient has normal creatinine 0.7-0.8. Additional Remarks Patient is alert, breathing is better, and edema is decreasing. Review of Systems General Constitutional: Fatigue Respiratory Lungs: SOB, Wheeze Cardiovascular Cardiac: Edema, ORTEGA Objective Data Data 09/13/16 09/14/16 19:00 07:00 Intake Total 300 ml Output Total 2275 ml 1250 ml Balance -2275 ml -950 ml Intake Oral 300 ml Output Urine Total 2275 ml 1250 ml # Bowel Movements 1 Vital Signs Date Time Temp Pulse Resp B/P Pulse Ox O2 Delivery O2 Flow Rate FiO2 09/14/16 11:16 98.2 106 20 111/62 92 09/14/16 07:40 97.7 95 20 117/65 95 09/14/16 07:16 92 Nasal Cannula 2.00 09/14/16 06:19 18 09/14/16 04:35 106 09/14/16 04:25 98.4 103 18 125/60 91 09/13/16 23:59 97.8 78 16 146/69 91 09/13/16 19:58 97.8 104 16 123/72 92 09/13/16 19:45 94 Nasal Cannula 3.00 09/13/16 15:59 97.6 103 20 130/56 95 09/13/16 15:15 110 -: 09/14/16 0615 09/14/16 0615 Physical Exam General Appearance: No Acute Distress, Comfortable Eyes Eye Exam: Pupils Equal Throat Throat Exam: Oral Mucosa [place] & Moist Pulmonary Resp Exam: Crackles, Rhonchi, Decreased Bases, Diminished Breath Sounds Cardiology CV Exam: Regular, Normal Sinus Rhythm Gastrointestinal/Abdomen GI Exam: Soft, Non-Tender, Bowel Sounds Present Extremeties Extremities Exam: Moderate Edema, Pitting Edema, Dependent Edema Neurologic Neuro Exam: Alert, Awake, Oriented Psychiatric Psych Exam: Appropriate Responses Assessment/Plan Assessment Summary: Fluid/Volume Overload Problem List: (1) Obesity (2) Coronary artery disease (3) Type 2 diabetes mellitus (4) Hypertension (5) COPD (chronic obstructive pulmonary disease) (6) Dyspnea (7) Edema Plan Patient is responding well to diuretics. The urine out put is much better. Edema started to improve. On Bumex 2 mg BID and Aldactone 25 mg BID. K is normal, and BUN and Creatinine stable so far. Continue same diuretics, follow urine out put and BMP. Estefania Barbosa MD Sep 14, 2016 12:19
--- NOTE | 2016-09-14 14:23 | HHI.FPPN ---
Subjective Remarks THREATENING AMA C/O EDEMA C/O COUGH C/O CONGESTON D/W RN Objective Vitals Vital Signs Date Time Temp Pulse Resp B/P Pulse Ox O2 Delivery O2 Flow Rate FiO2 09/14/16 11:16 98.2 106 20 111/62 92 09/14/16 07:40 97.7 95 20 117/65 95 09/14/16 07:16 92 Nasal Cannula 2.00 09/14/16 06:19 18 09/14/16 04:35 106 09/14/16 04:25 98.4 103 18 125/60 91 09/13/16 23:59 97.8 78 16 146/69 91 09/13/16 19:58 97.8 104 16 123/72 92 09/13/16 19:45 94 Nasal Cannula 3.00 09/13/16 15:59 97.6 103 20 130/56 95 09/13/16 15:15 110 I/O 09/13/16 09/13/16 09/13/16 09/14/16 09/14/16 09/14/16 07:00 15:00 23:00 07:00 15:00 23:00 Intake Total 300 ml 460 ml Output Total 500 ml 2275 ml 1250 ml Balance -500 ml -2275 ml -950 ml 460 ml Intake Oral 300 ml 460 ml Output Urine Total 500 ml 2275 ml 1250 ml # Bowel Movements 1 Result Diagram: 09/14/1615 09/14/1615 Objective Remarks GENERAL: SKIN: Warm and dry. HEAD: Atraumatic. Normocephalic. EYES: Pupils equal and round. No scleral icterus. No injection or drainage. ENT: No nasal bleeding or discharge. Mucous membranes pink and moist. NECK: Trachea midline. No JVD. CARDIOVASCULAR: Regular rate and rhythm. RESPIRATORY: No accessory muscle use. B R/R. Breath sounds equal bilaterally. GASTROINTESTINAL: Abdomen soft, non-tender, nondistended. Hepatic and splenic margins not palpable. MUSCULOSKELETAL: 3 PLUS EDEMA TO MID THIGHS B NEUROLOGICAL: Awake and alert. No obvious cranial nerve deficits. Motor grossly within normal limits. Five out of 5 muscle strength in the arms and legs. Normal speech. PSYCHIATRIC: Appropriate mood and affect; insight and judgment normal. Medications and IVs Current Medications Medications (Trade) Dose Ordered Sig/Whit Route Start Time Stop Time Status Last Admin (NS Flush) 2 ml UNSCH PRN IV FLUSH 09/12/16 19:45 (NS Flush) 2 ml BID IV FLUSH 09/12/16 21:00 09/14/16 09:08 (Tylenol) 650 mg Q4H PRN PO 09/12/16 19:45 (Zofran Inj) 4 mg Q6H PRN IVP 09/12/16 19:45 (Ambien) 5 mg HS PRN PO 09/12/16 19:45 (Heparin Inj) 5,000 units Q12H SQ 09/12/16 21:00 09/14/16 09:09 (Narcan Inj) 0.4 mg UNSCH PRN IV 09/12/16 19:45 (Milk Of Magnesia Liq) 30 ml Q12H PRN PO 09/12/16 19:45 (Senokot) 17.2 mg Q12H PRN PO 09/12/16 19:45 (Dulcolax Supp) 10 mg DAILY PRN RECTAL 09/12/16 19:45 (Lactulose Liq) 30 ml DAILY PRN PO 09/12/16 19:45 (Ativan) 0.5 mg Q8H PRN PO 09/12/16 19:45 Clonidine 0.1 mg 0.1 mg Q6H PRN PO 09/12/16 19:45 (Zithromax Inj/ NS 250 ml Inj) 250 ml @ 250 mls/hr Q24H IV 09/12/16 21:30 09/13/16 20:48 (Protonix Inj) 40 mg Q24H IV PUSH 09/12/16 21:00 09/13/16 20:46 (D50w (Vial) Inj) 50 ml UNSCH PRN IV 09/12/16 19:45 (Glucagon Inj) 1 mg UNSCH PRN OTHER 09/12/16 19:45 (Lipitor) 40 mg HS PO 09/12/16 21:00 09/13/16 20:44 (Wellbutrin) 100 mg BID PO 09/12/16 21:00 09/14/16 09:08 (Colace) 100 mg BID PO 09/12/16 21:00 09/14/16 09:08 (Apresoline) 25 mg TID PO 09/13/16 09:00 09/14/16 13:27 (Imdur) 30 mg DAILY PO 09/13/16 09:00 09/14/16 09:08 (KCl) 10 meq BID PO 09/12/16 21:00 09/14/16 09:09 (Lyrica) 50 mg TID PRN PO 09/12/16 19:45 (Amira-Colace) 1 tab BID PO 09/12/16 21:00 09/14/16 09:09 (Aldactone) 25 mg BID@,18 PO 09/13/16 09:00 09/14/16 09:11 (Desyrel) 50 mg HS PO 09/12/16 21:00 09/13/16 20:44 (Levemir Inj) 60 units BID SQ 09/12/16 21:30 09/14/16 09:11 (Percocet 5-325 Mg) 1 tab Q4H PRN PO 09/12/16 19:45 09/14/16 13:27 (Bumex Inj) 2 mg BID IV PUSH 09/13/16 21:00 09/14/16 09:10 A/P Assessment and Plan 1. Respiratory failure W FLUID OVERLOAD 2. Hypercarbia. 3. COPD. 4. Cor pulmonale. 5. CHF. 6. Hypertension. 7. Severe hyperglycemia. 8. Diabetes. 9. Smoker. 10. Seizures. PLAN 1. IV Bumex 2. Insulin sliding scale. 3. Consult nephrology for fluid overload. 4. Azithromycin 500 mg IV daily. 5. DuoNeb q.6 hours. 6. Lipitor. 7. Heparin 5000 units subcu q.12 hours for DVT prophylaxis. 8. Levemir 60 units b.i.d. 9. Telemetry. 10. Nasal cannula O2. 11. a.m. CBC and BMP. 12. PT has been obs for two mn. expect 3 more d inpt stay. pt would decline at home if dc today and return to ER or at home w/o further inpt admit. dc home w C. Jozef Gilliland MD Sep 14, 2016 14:23
[2016-09-14 21:07] LABS: MEAN CORPUSCULAR HGB CONC 28.4 % (32.0-36.0)
[2016-09-14] MEDS: ATORVASTATIN 40 MG TAB PO SCH (21:27)
[2016-09-14] MEDS: traZODone HCL 50 MG TAB PO SCH (21:27)
[2016-09-14] MEDS: PANTOPRAZOLE SODIUM 40 MG VIAL IV PUSH SCH (21:30)
[2016-09-14] MEDS: AZITHROMYCIN INJ 500 MG in SODIUM CHLOR 0.9% 250 ML INJ 250 ML IV SCH (21:31)
[2016-09-15] VITALS (10 sets, daily range): BP systolic 118–154; BP diastolic 64–80; PULSE 97–107; RESP 16–22; TEMP 96–98.2; O2SAT 92–96
[2016-09-15] MEDS ORDERED: RESP: ALBUTEROL 2.5 MG/IPRATROPIUM 0.5 MG NEB (PRN) NEB (00:15)
[2016-09-15] MEDS: oxyCODONE/ACETAMINOPHEN 5 MG/325 MG TAB PO PRN ×3 (04:06→16:31)
[2016-09-15] MEDS: INSULIN ASPART SUPPLEMENTAL SCALE SQ SCH ×4 (06:25→20:35)
[2016-09-15 07:18] LABS: AUTOMATED NEUTROPHIL # 5.2 TH/MM3 (1.8-7.7); BASOPHIL # 0.1 TH/MM3 (0-0.2); BASOPHIL % 1.1 % (0.0-2.0); EOSINOPHIL # 0.3 TH/MM3 (0-0.4); HEMATOCRIT 35.3 % (39.0-51.0); HEMO FLAGS DIFF FINAL; LYMPH % 17.4 % (9.0-44.0); LYMPHOCYTE # 1.3 TH/MM3 (1.0-4.8); MEAN CELL VOLUME 64.8 FL (80.0-100.0); MEAN CORPUSCULAR HEMOGLOBIN 18.4 PG (27.0-34.0); MONO % 8.9 % (0.0-8.0); NEUT % 68.6 % (16.0-70.0); PLATELET COUNT 291 TH/MM3 (150-450); RED BLOOD COUNT 5.45 MIL/MM3 (4.50-5.90); RED CELL DISTRIBUTION WIDTH 21.1 % (11.6-17.2); WHITE BLOOD COUNT 7.6 TH/MM3 (4.0-11.0)
[2016-09-15 07:34] LABS: BICARBONATE 40.2 MEQ/L (21.0-32.0)
[2016-09-15] MEDS: RESP: ALBUTEROL 2.5 MG/IPRATROPIUM 0.5 MG NEB (SCH) NEB ×4 (09:48→19:48)
[2016-09-15] MEDS: SODIUM CHLORIDE 0.9% FLUSH 10 ML FLUSH IV FLUSH SCH ×2 (10:41→20:52)
[2016-09-15] MEDS: SENNOSIDES 8.6 MG TAB PO PRN ×2 (10:42→20:50)
[2016-09-15] MEDS: BUMETANIDE INJ 1 MG/4 ML VIAL IV PUSH SCH ×2 (10:42→20:51)
[2016-09-15] MEDS: POTASSIUM CHLORIDE 10 MEQ CONTROLLED RELEASE TAB PO SCH ×2 (10:43→20:50)
[2016-09-15] MEDS: ISOSORBIDE MONONITRATE 30 MG TAB PO SCH (10:43)
[2016-09-15] MEDS: hydrALAZINE HCL 25 MG TAB PO SCH ×3 (10:43→20:50)
[2016-09-15] MEDS: MAGNESIUM HYDROXIDE SUSP 30 ML CUP PO PRN ×2 (10:43→20:50)
[2016-09-15] MEDS: HEPARIN SODIUM - SQ 10,000 UNITS/ML VIAL SQ SCH ×2 (10:43→20:51)
[2016-09-15] MEDS: LACTULOSE SYRUP 20 GM/30 ML CUP PO PRN (10:43)
[2016-09-15] MEDS: INSULIN DETEMIR 100 UNITS/ML VIAL SQ SCH ×2 (10:46→20:36)
[2016-09-15] MEDS: SPIRONOLACTONE 25 MG TAB PO SCH ×2 (10:47→20:10)
[2016-09-15] MEDS: DOCUSATE SODIUM 50 MG/SENNA 8.6 MG TAB PO SCH ×2 (10:47→20:50)
[2016-09-15] MEDS: buPROPion HCL 100 MG TAB PO SCH ×2 (10:47→20:50)
[2016-09-15] MEDS: DOCUSATE SODIUM 100 MG CAP PO SCH ×2 (10:57→20:50)
--- NOTE | 2016-09-15 10:58 | HHI.FPPN ---
Subjective Remarks PT THREATENING AMA AGAIN D/W RN STILL IN FLUID OVERLOAD Objective Vitals Vital Signs Date Time Temp Pulse Resp B/P Pulse Ox O2 Delivery O2 Flow Rate FiO2 09/15/16 09:48 94 Nasal Cannula 3.00 09/15/16 08:00 96.8 97 135/80 94 09/15/16 04:00 Nasal Cannula 2.00 09/15/16 04:00 96.9 104 22 118/64 95 09/15/16 00:24 93 Nasal Cannula 2.00 09/15/16 00:00 Nasal Cannula 2.00 09/15/16 00:00 96.0 107 21 151/71 92 09/14/16 20:21 98.5 102 16 146/67 94 09/14/16 19:17 93 Nasal Cannula 2.00 09/14/16 15:47 97.6 109 18 119/55 92 09/14/16 11:16 98.2 106 20 111/62 92 I/O 09/14/16 09/14/16 09/14/16 09/15/16 09/15/16 09/15/16 07:00 15:00 23:00 07:00 15:00 23:00 Intake Total 300 ml 940 ml 490 ml Output Total 1250 ml 600 ml Balance -950 ml 940 ml -110 ml Intake Oral 300 ml 940 ml 240 ml IV Total 250 ml Output Urine Total 1250 ml 600 ml # Voids 3 Result Diagram: 09/15/1617 09/15/16 0617 Objective Remarks GENERAL: SKIN: Warm and dry. HEAD: Atraumatic. Normocephalic. EYES: Pupils equal and round. No scleral icterus. No injection or drainage. ENT: No nasal bleeding or discharge. Mucous membranes pink and moist. NECK: Trachea midline. No JVD. CARDIOVASCULAR: Regular rate and rhythm. RESPIRATORY: No accessory muscle use. B R/R. Breath sounds equal bilaterally. GASTROINTESTINAL: Abdomen soft, non-tender, nondistended. Hepatic and splenic margins not palpable. MUSCULOSKELETAL: 3 PLUS EDEMA TO MID THIGHS B NEUROLOGICAL: Awake and alert. No obvious cranial nerve deficits. Motor grossly within normal limits. Five out of 5 muscle strength in the arms and legs. Normal speech. PSYCHIATRIC: Appropriate mood and affect; insight and judgment normal. Medications and IVs Current Medications Medications (Trade) Dose Ordered Sig/Whit Route Start Time Stop Time Status Last Admin (NS Flush) 2 ml UNSCH PRN IV FLUSH 09/12/16 19:45 (NS Flush) 2 ml BID IV FLUSH 09/12/16 21:00 09/15/16 10:41 (Tylenol) 650 mg Q4H PRN PO 09/12/16 19:45 (Zofran Inj) 4 mg Q6H PRN IVP 09/12/16 19:45 (Ambien) 5 mg HS PRN PO 09/12/16 19:45 (Heparin Inj) 5,000 units Q12H SQ 09/12/16 21:00 09/15/16 10:43 (Narcan Inj) 0.4 mg UNSCH PRN IV 09/12/16 19:45 (Milk Of Magnesia Liq) 30 ml Q12H PRN PO 09/12/16 19:45 09/15/16 10:43 (Senokot) 17.2 mg Q12H PRN PO 09/12/16 19:45 09/15/16 10:42 (Dulcolax Supp) 10 mg DAILY PRN RECTAL 09/12/16 19:45 (Lactulose Liq) 30 ml DAILY PRN PO 09/12/16 19:45 09/15/16 10:43 (Ativan) 0.5 mg Q8H PRN PO 09/12/16 19:45 Clonidine 0.1 mg 0.1 mg Q6H PRN PO 09/12/16 19:45 (Zithromax Inj/ NS 250 ml Inj) 250 ml @ 250 mls/hr Q24H IV 09/12/16 21:30 09/14/16 21:31 (Protonix Inj) 40 mg Q24H IV PUSH 09/12/16 21:00 09/14/16 21:30 (D50w (Vial) Inj) 50 ml UNSCH PRN IV 09/12/16 19:45 (Glucagon Inj) 1 mg UNSCH PRN OTHER 09/12/16 19:45 (Lipitor) 40 mg HS PO 09/12/16 21:00 09/14/16 21:27 (Wellbutrin) 100 mg BID PO 09/12/16 21:00 09/15/16 10:47 (Colace) 100 mg BID PO 09/12/16 21:00 09/14/16 21:28 (Apresoline) 25 mg TID PO 09/13/16 09:00 09/15/16 10:43 (Imdur) 30 mg DAILY PO 09/13/16 09:00 09/15/16 10:43 (KCl) 10 meq BID PO 09/12/16 21:00 09/15/16 10:43 (Lyrica) 50 mg TID PRN PO 09/12/16 19:45 (Amira-Colace) 1 tab BID PO 09/12/16 21:00 09/15/16 10:47 (Aldactone) 25 mg BID@,18 PO 09/13/16 09:00 09/15/16 10:47 (Desyrel) 50 mg HS PO 09/12/16 21:00 09/14/16 21:27 (Levemir Inj) 60 units BID SQ 09/12/16 21:30 09/15/16 10:46 (Percocet 5-325 Mg) 1 tab Q4H PRN PO 09/12/16 19:45 09/15/16 10:44 (Bumex Inj) 2 mg BID IV PUSH 09/13/16 21:00 09/15/16 10:42 A/P Assessment and Plan 1. Respiratory failure W FLUID OVERLOAD 2. Hypercarbia. 3. COPD. 4. Cor pulmonale. 5. CHF. 6. Hypertension. 7. Severe hyperglycemia. 8. Diabetes. 9. Smoker. 10. Seizures. PLAN 1. IV Bumex 2. Insulin sliding scale. 3. Consult nephrology for fluid overload. 4. Azithromycin 500 mg IV daily. 5. DuoNeb q.6 hours. 6. Lipitor. 7. Heparin 5000 units subcu q.12 hours for DVT prophylaxis. 8. Levemir 60 units b.i.d. 9. Telemetry. 10. Nasal cannula O2. 11. a.m. CBC and BMP. 12. dc home w [facility] when out of fluid overload. Jozef Gilliland MD Sep 15, 2016 10:58
--- NOTE | 2016-09-15 16:33 | HHI.NPPN ---
Subjective History of Present Illness 56-year-old male with past medical history of diabetes mellitus, ischemic heart disease, congestive heart failure, sleep apnea, emphysema, came to the hospital with complaint of worsening shortness of breath and edema. I was called to see the patient because of worsening edema. The patient has normal creatinine 0.7-0.8. Additional Remarks Patient is alert, breathing is better, and edema is decreasing, feeling better. Review of Systems General Constitutional: Fatigue Respiratory Lungs: SOB, Wheeze Cardiovascular Cardiac: Edema, ORTEGA Objective Data Data 09/14/16 09/15/16 19:00 07:00 Intake Total 940 ml 490 ml Output Total 600 ml Balance 940 ml -110 ml Intake Oral 940 ml 240 ml IV Total 250 ml Output Urine Total 600 ml # Voids 3 Vital Signs Date Time Temp Pulse Resp B/P Pulse Ox O2 Delivery O2 Flow Rate FiO2 09/15/16 16:23 94 Nasal Cannula 3.00 09/15/16 12:00 97.8 101 16 148/74 93 09/15/16 09:48 94 Nasal Cannula 3.00 09/15/16 08:00 96.8 97 135/80 94 09/15/16 04:00 Nasal Cannula 2.00 09/15/16 04:00 96.9 104 22 118/64 95 09/15/16 00:24 93 Nasal Cannula 2.00 09/15/16 00:00 Nasal Cannula 2.00 09/15/16 00:00 96.0 107 21 151/71 92 09/14/16 20:21 98.5 102 16 146/67 94 09/14/16 19:17 93 Nasal Cannula 2.00 -: 09/15/16 0617 09/15/16 0617 Physical Exam General Appearance: No Acute Distress, Comfortable Eyes Eye Exam: Pupils Equal Throat Throat Exam: Oral Mucosa [place] & Moist Pulmonary Resp Exam: Crackles, Rhonchi, Decreased Bases, Diminished Breath Sounds Cardiology CV Exam: Regular, Normal Sinus Rhythm Gastrointestinal/Abdomen GI Exam: Soft, Non-Tender, Bowel Sounds Present Extremeties Extremities Exam: Moderate Edema, Pitting Edema, Dependent Edema Neurologic Neuro Exam: Alert, Awake, Oriented Psychiatric Psych Exam: Appropriate Responses Assessment/Plan Assessment Summary: Fluid/Volume Overload Problem List: (1) Obesity (2) Coronary artery disease (3) Type 2 diabetes mellitus (4) Hypertension (5) COPD (chronic obstructive pulmonary disease) (6) Dyspnea (7) Edema Plan Patient is responding well to diuretics. The urine out put is much better. Edema started to improve. On Bumex 2 mg BID and Aldactone 25 mg BID. K is normal, and BUN and Creatinine stable so far. Continue same diuretics, follow urine out put and BMP. Need to continue to restrict oral fluids. Estefania Barbosa MD Sep 15, 2016 16:33
[2016-09-15] MEDS: FLUTICASONE PROPIONATE 50 MCG/ACT 16 GM NASAL SPRAY NASAL SCH (20:12)
[2016-09-15] MEDS: traZODone HCL 50 MG TAB PO SCH (20:50)
[2016-09-15] MEDS: ATORVASTATIN 40 MG TAB PO SCH (20:50)
[2016-09-15] MEDS: oxyCODONE/ACETAMINOPHEN 10 MG/325 MG TAB PO PRN (20:51)
[2016-09-15] MEDS: PANTOPRAZOLE SODIUM 40 MG VIAL IV PUSH SCH (20:51)
[2016-09-15] MEDS: AZITHROMYCIN INJ 500 MG in SODIUM CHLOR 0.9% 250 ML INJ 250 ML IV SCH (20:52)
[2016-09-15 21:05] LABS: MEAN CORPUSCULAR HGB CONC 27.8 % (32.0-36.0)
[2016-09-16] VITALS (10 sets, daily range): BP systolic 136–154; BP diastolic 67–87; PULSE 97–109; RESP 18–20; TEMP 96.2–98.2; O2SAT 90–96
[2016-09-16] MEDS: oxyCODONE/ACETAMINOPHEN 10 MG/325 MG TAB PO PRN ×6 (01:13→22:52)
[2016-09-16] MEDS: INSULIN ASPART SUPPLEMENTAL SCALE SQ SCH ×4 (06:13→21:50)
[2016-09-16 06:46] LABS: AUTOMATED NEUTROPHIL # 5.6 TH/MM3 (1.8-7.7); BASOPHIL # 0.1 TH/MM3 (0-0.2); BASOPHIL % 1.1 % (0.0-2.0); EOSINOPHIL # 0.3 TH/MM3 (0-0.4); EOSINOPHIL % 4.1 % (0.0-4.0); HEMATOCRIT 36.5 % (39.0-51.0); HEMO FLAGS DIFF FINAL; LYMPH % 19.7 % (9.0-44.0); LYMPHOCYTE # 1.6 TH/MM3 (1.0-4.8); MEAN CELL VOLUME 65.5 FL (80.0-100.0); MEAN CORPUSCULAR HEMOGLOBIN 18.2 PG (27.0-34.0); MONO % 8.6 % (0.0-8.0); NEUT % 66.5 % (16.0-70.0); PLATELET COUNT 313 TH/MM3 (150-450); RED BLOOD COUNT 5.57 MIL/MM3 (4.50-5.90); RED CELL DISTRIBUTION WIDTH 21.1 % (11.6-17.2); WHITE BLOOD COUNT 8.3 TH/MM3 (4.0-11.0)
[2016-09-16 07:06] LABS: BICARBONATE 41.9 MEQ/L (21.0-32.0); POTASSIUM 4.5 MEQ/L (3.5-5.1)
[2016-09-16] MEDS: RESP: ALBUTEROL 2.5 MG/IPRATROPIUM 0.5 MG NEB (SCH) NEB ×4 (08:49→20:21)
--- NOTE | 2016-09-16 09:24 | HHI.NPPN ---
Subjective History of Present Illness 56-year-old male with past medical history of diabetes mellitus, ischemic heart disease, congestive heart failure, sleep apnea, emphysema, came to the hospital with complaint of worsening shortness of breath and edema. I was called to see the patient because of worsening edema. The patient has normal creatinine 0.7-0.8. Additional Remarks Renal function is stable. Non oliguric, negative fluid balance. Review of Systems General Constitutional: Fatigue Respiratory Lungs: SOB, Wheeze Cardiovascular Cardiac: Edema, ORTEGA Objective Data Data 09/15/16 09/16/16 19:00 07:00 Intake Total 920 ml 960 ml Output Total 1400 ml 800 ml Balance -480 ml 160 ml Intake Oral 920 ml 960 ml Output Urine Total 1400 ml 800 ml # Bowel Movements 0 1 Vital Signs Date Time Temp Pulse Resp B/P Pulse Ox O2 Delivery O2 Flow Rate FiO2 09/16/16 09:03 98 09/16/16 08:50 90 Nasal Cannula 2.00 09/16/16 08:00 96.5 97 18 147/79 93 09/16/16 04:29 97.8 100 18 154/87 95 09/16/16 00:34 98.2 100 18 136/67 96 09/15/16 20:35 98.2 101 18 154/79 96 09/15/16 19:03 Nasal Cannula 2.00 09/15/16 16:23 94 Nasal Cannula 3.00 09/15/16 16:00 97.5 104 16 151/75 93 09/15/16 12:00 97.8 101 16 148/74 93 09/15/16 10:43 Nasal Cannula 2.00 09/15/16 09:48 94 Nasal Cannula 3.00 -: 09/16/16 0550 09/16/16 0550 Physical Exam General Appearance: No Acute Distress, Comfortable Eyes Eye Exam: Pupils Equal Throat Throat Exam: Oral Mucosa [place] & Moist Pulmonary Resp Exam: Crackles, Rhonchi, Decreased Bases, Diminished Breath Sounds Cardiology CV Exam: Regular, Normal Sinus Rhythm Gastrointestinal/Abdomen GI Exam: Soft, Non-Tender, Bowel Sounds Present Extremeties Extremities Exam: Moderate Edema, Pitting Edema, Dependent Edema Neurologic Neuro Exam: Alert, Awake, Oriented Psychiatric Psych Exam: Appropriate Responses Assessment/Plan Assessment Summary: Fluid/Volume Overload Problem List: (1) Obesity (2) Coronary artery disease (3) Type 2 diabetes mellitus (4) Hypertension (5) COPD (chronic obstructive pulmonary disease) (6) Dyspnea (7) Edema Plan Non oliguric. On Bumex 2 mg BID and Aldactone 25 mg BID. K is normal, and BUN and Creatinine stable so far. Continue same diuretics, follow urine out put and BMP. Obtain UA to look for proteinuria. Bernabe Diamond MD Sep 16, 2016 09:24
[2016-09-16] MEDS: INSULIN DETEMIR 100 UNITS/ML VIAL SQ SCH ×2 (10:23→21:49)
[2016-09-16] MEDS: DOCUSATE SODIUM 50 MG/SENNA 8.6 MG TAB PO SCH ×2 (10:24→21:45)
[2016-09-16] MEDS: ISOSORBIDE MONONITRATE 30 MG TAB PO SCH (10:24)
[2016-09-16] MEDS: SPIRONOLACTONE 25 MG TAB PO SCH ×2 (10:24→17:41)
[2016-09-16] MEDS: hydrALAZINE HCL 25 MG TAB PO SCH ×3 (10:24→17:40)
[2016-09-16] MEDS: buPROPion HCL 100 MG TAB PO SCH ×2 (10:24→21:43)
[2016-09-16] MEDS: DOCUSATE SODIUM 100 MG CAP PO SCH ×2 (10:24→21:44)
[2016-09-16] MEDS: SODIUM CHLORIDE 0.9% FLUSH 10 ML FLUSH IV FLUSH SCH ×2 (10:25→21:46)
[2016-09-16] MEDS: POTASSIUM CHLORIDE 10 MEQ CONTROLLED RELEASE TAB PO SCH ×2 (10:25→21:43)
[2016-09-16] MEDS: BUMETANIDE INJ 1 MG/4 ML VIAL IV PUSH SCH ×2 (10:25→21:47)
[2016-09-16] MEDS: HEPARIN SODIUM - SQ 10,000 UNITS/ML VIAL SQ SCH ×2 (10:25→21:44)
[2016-09-16] MEDS: FLUTICASONE PROPIONATE 50 MCG/ACT 16 GM NASAL SPRAY NASAL SCH (10:26)
--- NOTE | 2016-09-16 11:29 | HHI.PR ---
Subjective Remarks Follow-up respiratory failure with fluid overload 09/16/16-patient seen and examined; still shortness of breath. +constipation x 4 days Objective Vitals Vital Signs Date Time Temp Pulse Resp B/P Pulse Ox O2 Delivery O2 Flow Rate FiO2 09/16/16 09:03 98 09/16/16 08:50 90 Nasal Cannula 2.00 09/16/16 08:00 96.5 97 18 147/79 93 09/16/16 04:29 97.8 100 18 154/87 95 09/16/16 00:34 98.2 100 18 136/67 96 09/15/16 20:35 98.2 101 18 154/79 96 09/15/16 19:03 Nasal Cannula 2.00 09/15/16 16:23 94 Nasal Cannula 3.00 09/15/16 16:00 97.5 104 16 151/75 93 09/15/16 12:00 97.8 101 16 148/74 93 I/O 09/15/16 09/15/16 09/15/16 09/16/16 09/16/16 09/16/16 06:59 14:59 22:59 06:59 14:59 22:59 Intake Total 490 ml 920 ml 600 ml 360 ml Output Total 600 ml 1400 ml 400 ml 400 ml Balance -110 ml -480 ml 200 ml -40 ml Intake Oral 240 ml 920 ml 600 ml 360 ml IV Total 250 ml Output Urine Total 600 ml 1400 ml 400 ml 400 ml # Bowel Movements 0 0 1 Result Diagram: 09/16/16 0550 09/16/16 0550 Imaging Last Impressions Chest X-Ray 09/12/16 1647 Signed Impressions: Service Date/Time: Monday, September 12, 2016 17:07 - CONCLUSION: Underinflated exam with mild bibasilar opacity representing either atelectasis or consolidation. However, atelectasis is favored based on the appearance and underinflation. Harley Rojo MD Objective Remarks GENERAL: NAD SKIN: Warm and dry. HEAD: Normocephalic. EYES: No scleral icterus. No injection or drainage. NECK: Supple, trachea midline. No JVD or lymphadenopathy. CARDIOVASCULAR: Regular rate and rhythm without murmurs, gallops, or rubs. RESPIRATORY: Breath sounds equal bilaterally. No accessory muscle use. GASTROINTESTINAL: Abdomen soft, non-tender, nondistended. MUSCULOSKELETAL: No cyanosis; +1edema BLE. BACK: Nontender without obvious deformity. No CVA tenderness. A/P Assessment and Plan 56-year-old man with 1. Respiratory failure W FLUID OVERLOAD 2. Hypercarbia. 3. COPD. 4. Cor pulmonale. 5. CHF. 6. Hypertension. 7. Severe hyperglycemia. 8. Diabetes. 9. Smoker. 10. Seizures. PLAN 1. Continue with IV Bumex 2. Insulin sliding scale. 3. Consult nephrology for fluid overload. 4. Azithromycin 500 mg IV daily. 5. DuoNeb q.6 hours. 6. Lipitor. 7. Heparin 5000 units subcu q.12 hours for DVT prophylaxis. 8. Levemir 60 units b.i.d. 9. Appreciate input from nephrology Jose L Cristobal MD Sep 16, 2016 11:29
[2016-09-16] MEDS ORDERED: MAGNESIUM CITRATE SOLN 300 ML BTL PO ONE (13:30)
[2016-09-16 15:16] LABS: BLOOD, URINE NEG (NEG); GLUCOSE,URINE 300 mg/dL (NEG); KETONE, URINE NEG (NEG); NITRITE,URINE NEG (NEG); URINE COLOR YELLOW (YELLW/STRAW)
[2016-09-16 15:18] LABS: COMMENT (UR) CULT NOT INDICATED; CULTURE IF INDICATED CULT NOT INDICATED
[2016-09-16] MEDS: traZODone HCL 50 MG TAB PO SCH (21:00)
[2016-09-16] MEDS: PANTOPRAZOLE SODIUM 40 MG VIAL IV PUSH SCH (21:44)
[2016-09-16] MEDS: ATORVASTATIN 40 MG TAB PO SCH (21:45)
[2016-09-16] MEDS: AZITHROMYCIN INJ 500 MG in SODIUM CHLOR 0.9% 250 ML INJ 250 ML IV SCH (22:08)
[2016-09-17] VITALS (9 sets, daily range): BP systolic 122–160; BP diastolic 63–84; PULSE 97–110; RESP 18–22; TEMP 96.4–98.1; O2SAT 91–96
[2016-09-17] MEDS: oxyCODONE/ACETAMINOPHEN 10 MG/325 MG TAB PO PRN ×5 (04:00→21:49)
[2016-09-17] MEDS: MAGNESIUM HYDROXIDE SUSP 30 ML CUP PO PRN (04:15)
[2016-09-17] MEDS: LACTULOSE SYRUP 20 GM/30 ML CUP PO PRN (04:15)
[2016-09-17] MEDS: INSULIN ASPART SUPPLEMENTAL SCALE SQ SCH ×4 (07:00→22:17)
[2016-09-17] MEDS: SPIRONOLACTONE 25 MG TAB PO SCH ×2 (08:04→17:13)
[2016-09-17] MEDS: hydrALAZINE HCL 25 MG TAB PO SCH ×3 (08:04→17:13)
[2016-09-17] MEDS: buPROPion HCL 100 MG TAB PO SCH ×2 (08:04→22:08)
[2016-09-17] MEDS: SODIUM CHLORIDE 0.9% FLUSH 10 ML FLUSH IV FLUSH SCH ×2 (08:04→22:09)
[2016-09-17] MEDS: ISOSORBIDE MONONITRATE 30 MG TAB PO SCH (08:04)
[2016-09-17] MEDS: DOCUSATE SODIUM 50 MG/SENNA 8.6 MG TAB PO SCH ×2 (08:04→22:09)
[2016-09-17] MEDS: BUMETANIDE INJ 1 MG/4 ML VIAL IV PUSH SCH ×2 (08:04→22:08)
[2016-09-17] MEDS: DOCUSATE SODIUM 100 MG CAP PO SCH ×2 (08:04→22:08)
[2016-09-17] MEDS: POTASSIUM CHLORIDE 10 MEQ CONTROLLED RELEASE TAB PO SCH ×2 (08:05→22:08)
[2016-09-17] MEDS: HEPARIN SODIUM - SQ 10,000 UNITS/ML VIAL SQ SCH ×2 (08:05→22:09)
[2016-09-17] MEDS: INSULIN DETEMIR 100 UNITS/ML VIAL SQ SCH ×2 (08:14→22:16)
[2016-09-17] MEDS: RESP: ALBUTEROL 2.5 MG/IPRATROPIUM 0.5 MG NEB (SCH) NEB ×4 (09:17→19:33)
[2016-09-17] MEDS: FLUTICASONE PROPIONATE 50 MCG/ACT 16 GM NASAL SPRAY NASAL SCH (09:50)
--- NOTE | 2016-09-17 12:39 | HHI.PR ---
Subjective Remarks Follow-up respiratory failure with fluid overload 09/16/16-patient seen and examined; still shortness of breath. +constipation x 4 days 09/17/16-patient seen and examined; very upset that he is on fluid restriction, denies any significant shortness of breath Objective Vitals Vital Signs Date Time Temp Pulse Resp B/P Pulse Ox O2 Delivery O2 Flow Rate FiO2 09/17/16 11:42 98.0 110 18 148/77 91 09/17/16 09:21 93 Nasal Cannula 3.00 09/17/16 08:05 92 Nasal Cannula 2.00 09/17/16 08:00 96.8 105 18 130/79 92 09/17/16 04:00 96.4 97 18 160/84 96 09/17/16 00:00 96.8 102 22 122/63 93 09/16/16 22:00 104 09/16/16 20:21 93 Nasal Cannula 3.00 09/16/16 20:00 96.2 109 20 144/80 94 09/16/16 16:58 95 Nasal Cannula 2.00 09/16/16 16:00 96.5 100 18 139/85 95 I/O 09/16/16 09/16/16 09/16/16 09/17/16 09/17/16 09/17/16 07:00 15:00 23:00 07:00 15:00 23:00 Intake Total 360 ml 480 ml 780 ml 480 ml Output Total 400 ml Balance -40 ml 480 ml 780 ml 480 ml Intake Oral 360 ml 480 ml 780 ml 480 ml Output Urine Total 400 ml # Voids 5 2 2 # Bowel Movements 1 0 0 0 2 Result Diagram: 09/16/16 0550 09/16/16 0550 Objective Remarks GENERAL: NAD SKIN: Warm and dry. HEAD: Normocephalic. EYES: No scleral icterus. No injection or drainage. NECK: Supple, trachea midline. No JVD or lymphadenopathy. CARDIOVASCULAR: Regular rate and rhythm without murmurs, gallops, or rubs. RESPIRATORY: Breath sounds equal bilaterally. No accessory muscle use. GASTROINTESTINAL: Abdomen soft, non-tender, nondistended. MUSCULOSKELETAL: No cyanosis; +1edema BLE. BACK: Nontender without obvious deformity. No CVA tenderness. A/P Assessment and Plan 56-year-old man with 1. Respiratory failure W FLUID OVERLOAD-resolved 2. Hypercarbia-resolved 3. COPD. 4. Cor pulmonale. 5. CHF. 6. Hypertension. 7. Severe hyperglycemia. 8. Diabetes. 9. Smoker. 10. Seizures. PLAN 1. Continue with IV Bumex was fluid restriction 2. Continue Insulin sliding scale. 3. Appreciate input from nephrology 4. Azithromycin 500 mg IV daily. 5. DuoNeb q.6 hours. 6. Lipitor. 7. Heparin 5000 units subcu q.12 hours for DVT prophylaxis. 8. Levemir 60 units b.i.d. Jose L Cristobal MD Sep 17, 2016 12:39
[2016-09-17] MEDS: PANTOPRAZOLE SODIUM 40 MG VIAL IV PUSH SCH (22:07)
[2016-09-17] MEDS: AZITHROMYCIN INJ 500 MG in SODIUM CHLOR 0.9% 250 ML INJ 250 ML IV SCH (22:07)
[2016-09-17] MEDS: ATORVASTATIN 40 MG TAB PO SCH (22:09)
[2016-09-17] MEDS: traZODone HCL 50 MG TAB PO SCH (22:09)
[2016-09-18] VITALS (8 sets, daily range): BP systolic 127–161; BP diastolic 66–90; PULSE 100–108; RESP 18–24; TEMP 95.6–98.4; O2SAT 91–95
[2016-09-18] MEDS: oxyCODONE/ACETAMINOPHEN 10 MG/325 MG TAB PO PRN ×5 (02:33→22:49)
--- NOTE | 2016-09-18 07:23 | HHI.FPPN ---
Subjective Remarks STILL VERY EDEMATOUS C/O COUGH C/O WEAKNESS C/O BACK PAIN NO BM SINCE ADMIT HE REPORTS, SMALL HARD STOOL BALLS YESTERDAY D/W RN Objective Vitals Vital Signs Date Time Temp Pulse Resp B/P Pulse Ox O2 Delivery O2 Flow Rate FiO2 09/18/16 04:00 97.1 105 22 127/84 95 09/18/16 00:00 97.3 100 24 161/86 95 09/17/16 20:00 98.1 97 22 147/74 94 09/17/16 19:33 95 Nasal Cannula 3.00 09/17/16 18:45 105 09/17/16 16:00 97.9 100 18 140/69 94 09/17/16 11:42 98.0 110 18 148/77 91 09/17/16 09:21 93 Nasal Cannula 3.00 09/17/16 08:05 92 Nasal Cannula 2.00 09/17/16 08:00 96.8 105 18 130/79 92 I/O 09/17/16 09/17/16 09/17/16 09/18/16 09/18/16 09/18/16 07:00 15:00 23:00 07:00 15:00 23:00 Intake Total 480 ml 480 ml 1100 ml 780 ml Output Total 1600 ml 1800 ml 1500 ml Balance 480 ml -1120 ml -700 ml -720 ml Intake Oral 480 ml 480 ml 1100 ml 780 ml Output Urine Total 1600 ml 1800 ml 1500 ml # Voids 2 # Bowel Movements 0 2 1 0 Result Diagram: 09/16/16 0550 09/16/16 0550 Objective Remarks GENERAL: SKIN: Warm and dry. HEAD: Atraumatic. Normocephalic. EYES: Pupils equal and round. No scleral icterus. No injection or drainage. ENT: No nasal bleeding or discharge. Mucous membranes pink and moist. NECK: Trachea midline. No JVD. CARDIOVASCULAR: Regular rate and rhythm. RESPIRATORY: No accessory muscle use. B R/R. Breath sounds equal bilaterally. GASTROINTESTINAL: Abdomen soft, non-tender, nondistended. Hepatic and splenic margins not palpable. MUSCULOSKELETAL: 3 PLUS EDEMA TO MID THIGHS B NEUROLOGICAL: Awake and alert. No obvious cranial nerve deficits. Motor grossly within normal limits. Five out of 5 muscle strength in the arms and legs. Normal speech. PSYCHIATRIC: Appropriate mood and affect; insight and judgment normal. Medications and IVs Current Medications Medications (Trade) Dose Ordered Sig/Whit Route Start Time Stop Time Status Last Admin (NS Flush) 2 ml UNSCH PRN IV FLUSH 09/12/16 19:45 (NS Flush) 2 ml BID IV FLUSH 09/12/16 21:00 09/18/16 08:48 (Tylenol) 650 mg Q4H PRN PO 09/12/16 19:45 (Zofran Inj) 4 mg Q6H PRN IVP 09/12/16 19:45 (Ambien) 5 mg HS PRN PO 09/12/16 19:45 (Heparin Inj) 5,000 units Q12H SQ 09/12/16 21:00 09/18/16 08:47 (Narcan Inj) 0.4 mg UNSCH PRN IV 09/12/16 19:45 (Milk Of Magnesia Liq) 30 ml Q12H PRN PO 09/12/16 19:45 09/18/16 08:55 (Senokot) 17.2 mg Q12H PRN PO 09/12/16 19:45 09/18/16 08:55 (Dulcolax Supp) 10 mg DAILY PRN RECTAL 09/12/16 19:45 (Lactulose Liq) 30 ml DAILY PRN PO 09/12/16 19:45 09/17/16 04:15 (Ativan) 0.5 mg Q8H PRN PO 09/12/16 19:45 Clonidine 0.1 mg 0.1 mg Q6H PRN PO 09/12/16 19:45 (Zithromax Inj/ NS 250 ml Inj) 250 ml @ 250 mls/hr Q24H IV 09/12/16 21:30 09/17/16 22:07 (Protonix Inj) 40 mg Q24H IV PUSH 09/12/16 21:00 09/17/16 22:07 (D50w (Vial) Inj) 50 ml UNSCH PRN IV 09/12/16 19:45 (Glucagon Inj) 1 mg UNSCH PRN OTHER 09/12/16 19:45 (Lipitor) 40 mg HS PO 09/12/16 21:00 09/17/16 22:09 (Wellbutrin) 100 mg BID PO 09/12/16 21:00 09/18/16 08:48 (Colace) 100 mg BID PO 09/12/16 21:00 09/18/16 08:47 (Apresoline) 25 mg TID PO 09/13/16 09:00 09/18/16 08:47 (Imdur) 30 mg DAILY PO 09/13/16 09:00 09/18/16 08:48 (KCl) 10 meq BID PO 09/12/16 21:00 09/18/16 08:47 (Lyrica) 50 mg TID PRN PO 09/12/16 19:45 (Amira-Colace) 1 tab BID PO 09/12/16 21:00 09/17/16 22:09 (Aldactone) 25 mg BID@,18 PO 09/13/16 09:00 09/18/16 08:47 (Desyrel) 50 mg HS PO 09/12/16 21:00 09/17/16 22:09 (Levemir Inj) 60 units BID SQ 09/12/16 21:30 09/18/16 08:49 (Bumex Inj) 2 mg BID IV PUSH 09/13/16 21:00 09/18/16 08:48 (Flonase Shorty Spr) 2 spray DAILY NASAL 09/15/16 17:30 09/18/16 08:49 (Percocet 10-325 Mg) 1 tab Q4H PRN PO 09/15/16 18:00 09/18/16 08:49 A/P Assessment and Plan 1. Respiratory failure W FLUID OVERLOAD 2. Hypercarbia. 3. COPD. 4. Cor pulmonale. 5. CHF. 6. Hypertension. 7. Severe hyperglycemia. 8. Diabetes. 9. Smoker. 10. Seizures. PLAN- 1. ADD METOLAZONE, CONTINUE BUMEX 2. Insulin sliding scale. 3. Consult nephrology for fluid overload. 4. Azithromycin 500 mg IV daily. 5. DuoNeb q.6 hours. 6. Lipitor. 7. Heparin 5000 units subcu q.12 hours for DVT prophylaxis. 8. INCREASE LEVEMIR 9. Telemetry. 10. Nasal cannula O2. 11. a.m. CBC and BMP. 12. dc home w [facility] when out of fluid overload. Jozef Gilliland MD Sep 18, 2016 07:23
[2016-09-18] MEDS: INSULIN ASPART SUPPLEMENTAL SCALE SQ SCH ×4 (07:54→21:53)
[2016-09-18] MEDS: RESP: ALBUTEROL 2.5 MG/IPRATROPIUM 0.5 MG NEB (SCH) NEB ×4 (08:19→19:04)
[2016-09-18] MEDS: HEPARIN SODIUM - SQ 10,000 UNITS/ML VIAL SQ SCH ×2 (08:47→21:52)
[2016-09-18] MEDS: hydrALAZINE HCL 25 MG TAB PO SCH ×3 (08:47→17:07)
[2016-09-18] MEDS: DOCUSATE SODIUM 100 MG CAP PO SCH ×2 (08:47→21:51)
[2016-09-18] MEDS: SPIRONOLACTONE 25 MG TAB PO SCH ×2 (08:47→17:07)
[2016-09-18] MEDS: POTASSIUM CHLORIDE 10 MEQ CONTROLLED RELEASE TAB PO SCH ×2 (08:47→21:00)
[2016-09-18] MEDS: buPROPion HCL 100 MG TAB PO SCH ×2 (08:48→21:51)
[2016-09-18] MEDS: SODIUM CHLORIDE 0.9% FLUSH 10 ML FLUSH IV FLUSH SCH ×2 (08:48→21:00)
[2016-09-18] MEDS: ISOSORBIDE MONONITRATE 30 MG TAB PO SCH (08:48)
[2016-09-18] MEDS: BUMETANIDE INJ 1 MG/4 ML VIAL IV PUSH SCH ×2 (08:48→21:51)
[2016-09-18] MEDS: INSULIN DETEMIR 100 UNITS/ML VIAL SQ SCH ×2 (08:49→21:54)
[2016-09-18] MEDS: FLUTICASONE PROPIONATE 50 MCG/ACT 16 GM NASAL SPRAY NASAL SCH (08:49)
[2016-09-18] MEDS: MAGNESIUM HYDROXIDE SUSP 30 ML CUP PO PRN (08:55)
[2016-09-18] MEDS: SENNOSIDES 8.6 MG TAB PO PRN (08:55)
[2016-09-18] MEDS: DOCUSATE SODIUM 50 MG/SENNA 8.6 MG TAB PO SCH ×2 (09:00→21:52)
[2016-09-18] MEDS: METOLAZONE 5 MG TAB PO SCH (12:28)
--- NOTE | 2016-09-18 15:28 | HHI.NPPN ---
Subjective History of Present Illness 56-year-old male with past medical history of diabetes mellitus, ischemic heart disease, congestive heart failure, sleep apnea, emphysema, came to the hospital with complaint of worsening shortness of breath and edema. I was called to see the patient because of worsening edema. The patient has normal creatinine 0.7-0.8. Additional Remarks Patient still complain of leg edema, breathing is better. Review of Systems General Constitutional: Fatigue Respiratory Lungs: SOB, Wheeze Cardiovascular Cardiac: Edema, ORTEGA Objective Data Data 09/17/16 09/18/16 19:00 07:00 Intake Total 480 ml 1880 ml Output Total 1600 ml 3300 ml Balance -1120 ml -1420 ml Intake Oral 480 ml 1880 ml Output Urine Total 1600 ml 3300 ml # Bowel Movements 2 1 Vital Signs Date Time Temp Pulse Resp B/P Pulse Ox O2 Delivery O2 Flow Rate FiO2 09/18/16 12:00 98.4 103 20 138/66 93 09/18/16 08:22 Nasal Cannula 3.00 09/18/16 07:31 97.9 107 20 140/71 93 09/18/16 04:00 97.1 105 22 127/84 95 09/18/16 00:00 97.3 100 24 161/86 95 09/17/16 20:00 98.1 97 22 147/74 94 09/17/16 19:33 95 Nasal Cannula 3.00 09/17/16 18:45 105 09/17/16 16:00 97.9 100 18 140/69 94 -: 09/16/16 0550 09/16/16 0550 Physical Exam General Appearance: No Acute Distress, Comfortable Eyes Eye Exam: Pupils Equal Throat Throat Exam: Oral Mucosa [place] & Moist Pulmonary Resp Exam: Crackles, Rhonchi, Decreased Bases, Diminished Breath Sounds Cardiology CV Exam: Regular, Normal Sinus Rhythm Gastrointestinal/Abdomen GI Exam: Soft, Non-Tender, Bowel Sounds Present Extremeties Extremities Exam: Moderate Edema, Pitting Edema, Dependent Edema Neurologic Neuro Exam: Alert, Awake, Oriented Psychiatric Psych Exam: Appropriate Responses Assessment/Plan Assessment Summary: Fluid/Volume Overload Problem List: (1) Obesity (2) Coronary artery disease (3) Type 2 diabetes mellitus (4) Hypertension (5) COPD (chronic obstructive pulmonary disease) (6) Dyspnea (7) Edema Plan Urine out put is good. Need to be compliant with fluid intake, D/W the patient. On Bumex 2 mg BID and Aldactone 25 mg BID. Also added Metolazone 5 mg daily. Check BMP in AM, last Creatinine on 09/16 was normal. Problem Qualifiers (1) Hypertension: Qualified Code: I10 - Essential hypertension Estefania Barbosa MD Sep 18, 2016 15:28
[2016-09-18] MEDS: LORazepam 0.5 MG TAB PO PRN (21:51)
[2016-09-18] MEDS: ATORVASTATIN 40 MG TAB PO SCH (21:51)
[2016-09-18] MEDS: AZITHROMYCIN INJ 500 MG in SODIUM CHLOR 0.9% 250 ML INJ 250 ML IV SCH (21:52)
[2016-09-18] MEDS: traZODone HCL 50 MG TAB PO SCH (21:52)
[2016-09-18] MEDS: PANTOPRAZOLE SODIUM 40 MG VIAL IV PUSH SCH (21:52)
[2016-09-19] VITALS (9 sets, daily range): BP systolic 110–168; BP diastolic 51–84; PULSE 74–112; RESP 18–21; TEMP 96.6–99; O2SAT 92–97
[2016-09-19] MEDS: oxyCODONE/ACETAMINOPHEN 10 MG/325 MG TAB PO PRN ×5 (04:31→21:02)
[2016-09-19] MEDS: INSULIN ASPART SUPPLEMENTAL SCALE SQ SCH ×4 (06:17→20:43)
[2016-09-19 06:52] LABS: BICARBONATE 41.2 MEQ/L (21.0-32.0)
[2016-09-19] MEDS: RESP: ALBUTEROL 2.5 MG/IPRATROPIUM 0.5 MG NEB (SCH) NEB ×4 (09:00→20:04)
[2016-09-19] MEDS: INSULIN DETEMIR 100 UNITS/ML VIAL SQ SCH ×2 (09:00→20:44)
[2016-09-19] MEDS: FLUTICASONE PROPIONATE 50 MCG/ACT 16 GM NASAL SPRAY NASAL SCH (09:00)
[2016-09-19] MEDS: SODIUM CHLORIDE 0.9% FLUSH 10 ML FLUSH IV FLUSH SCH ×2 (09:00→20:46)
[2016-09-19] MEDS: BUMETANIDE INJ 1 MG/4 ML VIAL IV PUSH SCH ×2 (09:13→20:46)
[2016-09-19] MEDS: buPROPion HCL 100 MG TAB PO SCH ×2 (09:15→20:44)
[2016-09-19] MEDS: LORazepam 0.5 MG TAB PO PRN (09:15)
[2016-09-19] MEDS: HEPARIN SODIUM - SQ 10,000 UNITS/ML VIAL SQ SCH ×2 (09:15→20:45)
[2016-09-19] MEDS: POTASSIUM CHLORIDE 10 MEQ CONTROLLED RELEASE TAB PO SCH ×2 (09:16→20:44)
[2016-09-19] MEDS: ISOSORBIDE MONONITRATE 30 MG TAB PO SCH (09:16)
[2016-09-19] MEDS: METOLAZONE 5 MG TAB PO SCH (09:16)
[2016-09-19] MEDS: DOCUSATE SODIUM 50 MG/SENNA 8.6 MG TAB PO SCH ×2 (09:16→20:45)
[2016-09-19] MEDS: DOCUSATE SODIUM 100 MG CAP PO SCH ×2 (09:16→20:45)
[2016-09-19] MEDS: SPIRONOLACTONE 25 MG TAB PO SCH ×2 (09:16→17:03)
[2016-09-19] MEDS: hydrALAZINE HCL 25 MG TAB PO SCH ×3 (09:16→17:03)
[2016-09-19] MEDS: MAGNESIUM HYDROXIDE SUSP 30 ML CUP PO PRN (09:17)
--- NOTE | 2016-09-19 11:12 | HHI.FPPN ---
Subjective Remarks THREATENING AMA TELE REVIEWED TACHY AGITATED STILL EDEMATOUS AND SOB D/W RN Objective Vitals Vital Signs Date Time Temp Pulse Resp B/P Pulse Ox O2 Delivery O2 Flow Rate FiO2 09/19/16 09:33 106 09/19/16 09:28 Nasal Cannula 3.00 09/19/16 09:00 Nasal Cannula 3.00 09/19/16 07:55 96.6 105 20 138/67 97 09/19/16 04:01 97.6 110 20 127/63 94 09/19/16 00:53 98.0 112 21 148/51 92 09/18/16 21:00 96.7 102 18 128/75 92 09/18/16 16:09 95.6 104 20 144/90 93 09/18/16 15:25 91 Nasal Cannula 3.00 09/18/16 12:00 98.4 103 20 138/66 93 I/O 09/18/16 09/18/16 09/18/16 09/19/16 09/19/16 09/19/16 07:00 15:00 23:00 07:00 15:00 23:00 Intake Total 780 ml 1200 ml 150 ml 540 ml Output Total 1500 ml 2350 ml Balance -720 ml 1200 ml 150 ml -1810 ml Intake Oral 780 ml 1200 ml 150 ml 540 ml Output Urine Total 1500 ml 2350 ml # Voids 4 # Bowel Movements 0 0 1 Result Diagram: 09/16/16 0550 09/19/16 0541 Objective Remarks GENERAL: SKIN: Warm and dry. HEAD: Atraumatic. Normocephalic. EYES: Pupils equal and round. No scleral icterus. No injection or drainage. ENT: No nasal bleeding or discharge. Mucous membranes pink and moist. NECK: Trachea midline. No JVD. CARDIOVASCULAR: Regular rate and rhythm. RESPIRATORY: No accessory muscle use. B R/R. Breath sounds equal bilaterally. GASTROINTESTINAL: Abdomen soft, non-tender, nondistended. Hepatic and splenic margins not palpable. MUSCULOSKELETAL: 3 PLUS EDEMA TO MID THIGHS B NEUROLOGICAL: Awake and alert. No obvious cranial nerve deficits. Motor grossly within normal limits. Five out of 5 muscle strength in the arms and legs. Normal speech. PSYCHIATRIC: Appropriate mood and affect; insight and judgment normal. Medications and IVs Current Medications Medications (Trade) Dose Ordered Sig/Whit Route Start Time Stop Time Status Last Admin (NS Flush) 2 ml UNSCH PRN IV FLUSH 09/12/16 19:45 (NS Flush) 2 ml BID IV FLUSH 09/12/16 21:00 09/19/16 09:00 (Tylenol) 650 mg Q4H PRN PO 09/12/16 19:45 (Zofran Inj) 4 mg Q6H PRN IVP 09/12/16 19:45 (Ambien) 5 mg HS PRN PO 09/12/16 19:45 (Heparin Inj) 5,000 units Q12H SQ 09/12/16 21:00 09/19/16 09:15 (Narcan Inj) 0.4 mg UNSCH PRN IV 09/12/16 19:45 (Milk Of Magnesia Liq) 30 ml Q12H PRN PO 09/12/16 19:45 09/19/16 09:17 (Senokot) 17.2 mg Q12H PRN PO 09/12/16 19:45 09/18/16 08:55 (Dulcolax Supp) 10 mg DAILY PRN RECTAL 09/12/16 19:45 (Lactulose Liq) 30 ml DAILY PRN PO 09/12/16 19:45 09/17/16 04:15 (Ativan) 0.5 mg Q8H PRN PO 09/12/16 19:45 09/19/16 09:15 Clonidine 0.1 mg 0.1 mg Q6H PRN PO 09/12/16 19:45 (Zithromax Inj/ NS 250 ml Inj) 250 ml @ 250 mls/hr Q24H IV 09/12/16 21:30 09/18/16 21:52 (Protonix Inj) 40 mg Q24H IV PUSH 09/12/16 21:00 09/18/16 21:52 (D50w (Vial) Inj) 50 ml UNSCH PRN IV 09/12/16 19:45 (Glucagon Inj) 1 mg UNSCH PRN OTHER 09/12/16 19:45 (Lipitor) 40 mg HS PO 09/12/16 21:00 09/18/16 21:51 (Wellbutrin) 100 mg BID PO 09/12/16 21:00 09/19/16 09:15 (Colace) 100 mg BID PO 09/12/16 21:00 09/19/16 09:16 (Apresoline) 25 mg TID PO 09/13/16 09:00 09/19/16 09:16 (Imdur) 30 mg DAILY PO 09/13/16 09:00 09/19/16 09:16 (KCl) 10 meq BID PO 09/12/16 21:00 09/19/16 09:16 (Lyrica) 50 mg TID PRN PO 09/12/16 19:45 (Amira-Colace) 1 tab BID PO 09/12/16 21:00 09/19/16 09:16 (Aldactone) 25 mg BID@,18 PO 09/13/16 09:00 09/19/16 09:16 (Desyrel) 50 mg HS PO 09/12/16 21:00 09/18/16 21:52 (Bumex Inj) 2 mg BID IV PUSH 09/13/16 21:00 09/19/16 09:13 (Flonase Shorty Spr) 2 spray DAILY NASAL 09/15/16 17:30 09/19/16 09:00 (Percocet 10-325 Mg) 1 tab Q4H PRN PO 09/15/16 18:00 09/19/16 09:16 (Levemir Inj) 72 units BID SQ 09/18/16 21:00 09/19/16 09:00 (Zaroxolyn) 5 mg DAILY PO 09/18/16 12:00 09/19/16 09:16 A/P Assessment and Plan 1. Respiratory failure W FLUID OVERLOAD 2. Hypercarbia. 3. COPD. 4. Cor pulmonale. 5. CHF. 6. Hypertension. 7. Severe hyperglycemia. 8. Diabetes. 9. Smoker. 10. Seizures. PLAN- 1. ADDED METOLAZONE, CONTINUE BUMEX IV 2. Insulin sliding scale. 3. Consult nephrology for fluid overload. 4. Azithromycin 500 mg IV daily. 5. DuoNeb q.6 hours. 6. Lipitor. 7. Heparin 5000 units subcu q.12 hours for DVT prophylaxis. 8. INCREASE LEVEMIR AGAIN 9. Telemetry. 10. Nasal cannula O2. 11. a.m. CBC and BMP. 12. dc home w HHC when out of fluid overload. Jozef Gilliland MD Sep 19, 2016 11:12
--- NOTE | 2016-09-19 16:27 | HHI.NPPN ---
Subjective History of Present Illness 56-year-old male with past medical history of diabetes mellitus, ischemic heart disease, congestive heart failure, sleep apnea, emphysema, came to the hospital with complaint of worsening shortness of breath and edema. I was called to see the patient because of worsening edema. The patient has normal creatinine 0.7-0.8. Additional Remarks Patient is alert, feeling better, edema is decreasing and breathing improving. Review of Systems General Constitutional: Fatigue Respiratory Lungs: SOB, Wheeze Cardiovascular Cardiac: Edema, ORTEGA Objective Data Data 09/18/16 09/19/16 19:00 07:00 Intake Total 1200 ml 690 ml Output Total 2350 ml Balance 1200 ml -1660 ml Intake Oral 1200 ml 690 ml Output Urine Total 2350 ml # Voids 4 # Bowel Movements 0 1 Vital Signs Date Time Temp Pulse Resp B/P Pulse Ox O2 Delivery O2 Flow Rate FiO2 09/19/16 13:32 Nasal Cannula 3.00 09/19/16 12:05 91 Nasal Cannula 3.00 09/19/16 12:03 97.0 104 20 145/67 93 09/19/16 09:33 106 09/19/16 09:28 Nasal Cannula 3.00 09/19/16 09:00 Nasal Cannula 3.00 09/19/16 07:55 96.6 105 20 138/67 97 09/19/16 04:01 97.6 110 20 127/63 94 09/19/16 00:53 98.0 112 21 148/51 92 09/18/16 21:00 96.7 102 18 128/75 92 -: 09/16/16 0550 09/19/16 0541 Physical Exam General Appearance: No Acute Distress, Comfortable Eyes Eye Exam: Pupils Equal Throat Throat Exam: Oral Mucosa [place] & Moist Pulmonary Resp Exam: Crackles, Rhonchi, Decreased Bases, Diminished Breath Sounds Cardiology CV Exam: Regular, Normal Sinus Rhythm Gastrointestinal/Abdomen GI Exam: Soft, Non-Tender, Bowel Sounds Present Extremeties Extremities Exam: Moderate Edema, Pitting Edema, Dependent Edema Neurologic Neuro Exam: Alert, Awake, Oriented Psychiatric Psych Exam: Appropriate Responses Assessment/Plan Assessment Summary: Fluid/Volume Overload Problem List: (1) Obesity (2) Coronary artery disease (3) Type 2 diabetes mellitus (4) Hypertension (5) COPD (chronic obstructive pulmonary disease) (6) Dyspnea (7) Edema Plan Urine out put is good. Need to be compliant with fluid intake, D/W the patient. On Bumex 2 mg BID and Aldactone 25 mg BID. Also added Metolazone 5 mg daily. Creatinine remain normal. Urine out put is good. He will need to restrict fluid once D/C. Problem Qualifiers (1) Hypertension: Qualified Code: I10 - Essential hypertension Estefania Barbosa MD Sep 19, 2016 16:27
[2016-09-19] MEDS: PANTOPRAZOLE SODIUM 40 MG VIAL IV PUSH SCH (20:44)
[2016-09-19] MEDS: traZODone HCL 50 MG TAB PO SCH (20:45)
[2016-09-19] MEDS: ATORVASTATIN 40 MG TAB PO SCH (20:45)
[2016-09-19] MEDS: AZITHROMYCIN INJ 500 MG in SODIUM CHLOR 0.9% 250 ML INJ 250 ML IV SCH (20:46)
[2016-09-20 00:02] VITALS: BP 134/72; PULSE 99; RESP 18; TEMP 97.1; O2SAT 96
[2016-09-20] MEDS: oxyCODONE/ACETAMINOPHEN 10 MG/325 MG TAB PO PRN ×2 (02:13→07:21)
[2016-09-20 04:10] VITALS: BP 139/62; PULSE 110; RESP 18; TEMP 97.7; O2SAT 95
[2016-09-20] MEDS: INSULIN ASPART SUPPLEMENTAL SCALE SQ SCH ×2 (06:27→11:13)
[2016-09-20 07:34] VITALS: BP 128/78; PULSE 107; RESP 20; TEMP 96.5; O2SAT 94
[2016-09-20 08:05] LABS: POTASSIUM 5.1 MEQ/L (3.5-5.1)
[2016-09-20] MEDS: SODIUM CHLORIDE 0.9% FLUSH 10 ML FLUSH IV FLUSH SCH (08:44)
[2016-09-20] MEDS: DOCUSATE SODIUM 100 MG CAP PO SCH (08:45)
[2016-09-20] MEDS: HEPARIN SODIUM - SQ 10,000 UNITS/ML VIAL SQ SCH (08:45)
[2016-09-20] MEDS: hydrALAZINE HCL 25 MG TAB PO SCH (08:45)
[2016-09-20] MEDS: BUMETANIDE INJ 1 MG/4 ML VIAL IV PUSH SCH (08:45)
[2016-09-20] MEDS: DOCUSATE SODIUM 50 MG/SENNA 8.6 MG TAB PO SCH (08:46)
[2016-09-20] MEDS: POTASSIUM CHLORIDE 10 MEQ CONTROLLED RELEASE TAB PO SCH (08:46)
[2016-09-20] MEDS: METOLAZONE 5 MG TAB PO SCH (08:46)
[2016-09-20] MEDS: SPIRONOLACTONE 25 MG TAB PO SCH (08:46)
[2016-09-20] MEDS: ISOSORBIDE MONONITRATE 30 MG TAB PO SCH (08:46)
[2016-09-20] MEDS: buPROPion HCL 100 MG TAB PO SCH (08:46)
[2016-09-20] MEDS: FLUTICASONE PROPIONATE 50 MCG/ACT 16 GM NASAL SPRAY NASAL SCH (08:58)
[2016-09-20] MEDS: INSULIN DETEMIR 100 UNITS/ML VIAL SQ SCH (08:59)
[2016-09-20 09:01] VITALS: O2SAT 93
[2016-09-20] MEDS: RESP: ALBUTEROL 2.5 MG/IPRATROPIUM 0.5 MG NEB (SCH) NEB (09:01)
--- NOTE | 2016-09-20 10:37 | HHI.NPPN ---
Subjective History of Present Illness 56-year-old male with past medical history of diabetes mellitus, ischemic heart disease, congestive heart failure, sleep apnea, emphysema, came to the hospital with complaint of worsening shortness of breath and edema. I was called to see the patient because of worsening edema. The patient has normal creatinine 0.7-0.8. Additional Remarks Patient is alert, feeling better, edema is decreasing and breathing improving, clinically better. Review of Systems General Constitutional: Fatigue Respiratory Lungs: SOB, Wheeze Cardiovascular Cardiac: Edema, ORTEGA Objective Data Data 09/19/16 09/20/16 19:00 07:00 Intake Total 1020 ml 720 ml Output Total 3050 ml Balance 1020 ml -2330 ml Intake Oral 1020 ml 720 ml Output Urine Total 3050 ml # Voids 5 # Bowel Movements 0 0 Vital Signs Date Time Temp Pulse Resp B/P Pulse Ox O2 Delivery O2 Flow Rate FiO2 09/20/16 09:01 93 Nasal Cannula 3.00 09/20/16 07:34 96.5 107 20 128/78 94 09/20/16 04:10 97.7 110 18 139/62 95 09/20/16 00:02 97.1 99 18 134/72 96 09/19/16 20:15 99.0 96 18 168/84 96 09/19/16 20:04 92 Nasal Cannula 3.00 09/19/16 19:31 Nasal Cannula 3.00 09/19/16 19:28 100 09/19/16 15:50 97.8 98 20 142/74 92 09/19/16 13:32 Nasal Cannula 3.00 09/19/16 12:05 91 Nasal Cannula 3.00 09/19/16 12:03 97.0 104 20 145/67 93 -: 09/16/16 0550 09/20/16 0700 Physical Exam General Appearance: No Acute Distress, Comfortable Eyes Eye Exam: Pupils Equal Throat Throat Exam: Oral Mucosa [place] & Moist Pulmonary Resp Exam: Crackles, Rhonchi, Decreased Bases, Diminished Breath Sounds Cardiology CV Exam: Regular, Normal Sinus Rhythm Gastrointestinal/Abdomen GI Exam: Soft, Non-Tender, Bowel Sounds Present Extremeties Extremities Exam: Moderate Edema, Pitting Edema, Dependent Edema Neurologic Neuro Exam: Alert, Awake, Oriented Psychiatric Psych Exam: Appropriate Responses Assessment/Plan Assessment Summary: Fluid/Volume Overload Problem List: (1) Obesity (2) Coronary artery disease (3) Type 2 diabetes mellitus (4) Hypertension (5) COPD (chronic obstructive pulmonary disease) (6) Dyspnea (7) Edema Plan Urine out put is good. Need to be compliant with fluid intake, D/W the patient. On Bumex 2 mg BID and Aldactone 25 mg BID. Also added Metolazone 5 mg daily. Will need to continue fluid and salt restriction. Can go home with Bumex 2 mg BID , Metolazone 2.5 mg daily, and Aldactone 25 mg BID. Will need close follow up. Problem Qualifiers (1) Hypertension: Qualified Code: I10 - Essential hypertension Estefania Barbosa MD Sep 20, 2016 10:37
--- NOTE | 2016-09-20 11:06 | HHI.DS ---
Discharge Summary Admission Date Sep 14, 2016 at 15:22 Discharge Date: Sep 20, 2016 Admitting Diagnosis COPD exacerbation, hyponatremia, uncontrolled diabetes, anasarca (1) Tachycardia (2) Esophageal reflux (3) Encounter for smoking cessation counseling (4) History of congestive heart failure (5) ESSENTIAL (PRIMARY) HYPERTENSION (6) Encephalopathy (7) Sleep apnea (8) Pain (9) GERD (gastroesophageal reflux disease) (10) Chronic pain (11) Tobacco abuse (12) Insomnia (13) Constipation (14) Respiratory distress (15) Hypercarbia (16) Chest pain (17) Acute hypercapnic respiratory failure (18) Chronic airway obstruction, not elsewhere classified (19) COPD with exacerbation (20) Heart failure with reduced ejection fraction (21) Hypertension (22) Obesity (23) Type 2 diabetes mellitus CBC/BMP: 09/16/16 0550 09/20/16 0700 Significant Findings Laboratory Tests Test 09/19/16 09/20/16 05:41 07:00 Chloride Level 94 MEQ/L 92 MEQ/L (98-107) (98-107) Carbon Dioxide Level 41.2 MEQ/L 34.0 MEQ/L (21.0-32.0) (21.0-32.0) Anion Gap 1 MEQ/L (5-15) Random Glucose 215 MG/DL 203 MG/DL (74-106) (74-106) Sodium Level 134 MEQ/L (136-145) PE at Discharge GENERAL: SKIN: Warm and dry. HEAD: Atraumatic. Normocephalic. EYES: Pupils equal and round. No scleral icterus. No injection or drainage. ENT: No nasal bleeding or discharge. Mucous membranes pink and moist. NECK: Trachea midline. No JVD. CARDIOVASCULAR: Regular rate and rhythm. RESPIRATORY: No accessory muscle use. Clear to auscultation. Breath sounds equal bilaterally. GASTROINTESTINAL: Abdomen soft, non-tender, nondistended. Hepatic and splenic margins not palpable. MUSCULOSKELETAL: Extremities without clubbing, cyanosis, or edema. No obvious deformities. NEUROLOGICAL: Awake and alert. No obvious cranial nerve deficits. Motor grossly within normal limits. Five out of 5 muscle strength in the arms and legs. Normal speech. PSYCHIATRIC: Appropriate mood and affect; insight and judgment normal. Hospital Course 56 y CM, ADMIT WITH: 1. Respiratory failure W FLUID OVERLOAD 2. Hypercarbia. 3. COPD. 4. Cor pulmonale. 5. CHF. 6. Hypertension. 7. Severe hyperglycemia. 8. Diabetes. 9. Smoker. 10. Seizures. HOSPITAL COURSE AND PLAN WAS TO - 1. ADDED METOLAZONE, CONTINUE BUMEX 2. Insulin sliding scale. 3. Consult nephrology for fluid overload. 4. Azithromycin 500 mg IV daily. 5. DuoNeb q.6 hours. 6. Lipitor. 7. Heparin 5000 units subcu q.12 hours for DVT prophylaxis. 8. INCREASE LEVEMIR AGAIN 9. Telemetry. 10. Nasal cannula O2. 11. a.m. CBC and BMP. 12. dc home w HHC. PT REQS DC NOW OR AMA. DENIED PT PAIN MEDS. Discharge Instructions Follow up Referrals: Nephrology - 2-[address] SERRANO PCP Follow-up - 2-3 Days New Medications: Bumetanide (Bumetanide) 2 Mg Tab 2 MG PO BID EDEMA Days 90 Ref 9 TAB Changed Medications: Insulin Glargine Inj (Lantus Solostar Pen Inj) 300 Unit/3 Ml Pen 85 UNIT SQ BID Blood Sugar Management Days 90 Ref 0 PEN (Changed from: 60 UNITS) Continued Medications: Atorvastatin (Atorvastatin) 40 Mg Tab 40 MG PO HS Cholesterol Management #30 Ref 0 TAB Bupropion HCl (Bupropion HCl) 100 Mg Tab 100 MG PO BID Control Depression Ref 0 TAB Docusate Sodium (Docusate Sodium) 100 Mg Cap 100 MG PO BID Prevent Constipation #60 Ref 0 CAP Folic Acid (Folate) 1 Mg Tab 1 MG PO DAILY Nutritional Supplement Ref 0 TAB Hydralazine HCl (Hydralazine HCl) 25 Mg Tablet 25 MG PO TID Blood Pressure Management #90 Ref 0 TAB Ipratropium-Albuterol Neb (Duoneb) 0.5-2.5 Mg/3 Ml Neb 1 NEBULE NEB QID PRN SHORTNESS OF BREATH #30 Ref 0 NEBULE Isosorbide Mononitrate ER (Isosorbide Mononitrate ER) 30 Mg [place] 30 MG PO DAILY Prevent Chest Pain #30 Ref 0 TAB Pantoprazole (Protonix) 40 Mg Tab 40 MG PO DAILY Ulcer Prevention #30 Ref 0 TAB Pregabalin (Lyrica) 50 Mg Cap 50 MG PO TID PRN PAIN SCALE 1 TO 10 #90 Ref 0 CAP Sennosides-Docusate Sodium (Senna Plus 8.6-50 mg) 1 Tab Tab 1 TAB PO BID Constipation Days 90 Ref 11 TAB Spironolactone (Aldactone) 25 Mg Tab 25 MG PO BID@09,18 chf Days 90 Ref 11 TAB Tiotropium Inh (Spiriva Handihaler) 18 Mcg Cap 18 MCG INH DAILY 1 capsule = 18 mcg COPD #30 Ref 0 CAP Tramadol (Tramadol) 50 Mg Tab 50 MG PO BID PRN PAIN Ref 0 TAB Trazodone (Trazodone) 50 Mg Tab 50 MG PO HS Insomnia Ref 11 TAB Discontinued Medications: Bumetanide (Bumetanide) 1 Mg Tab 1 MG PO BID #60 Ref 0 TAB Gabapentin (Neurontin) 300 Mg Cap 300 MG PO DAILY #60 Ref 0 CAP Potassium Chloride ER (Potassium Chloride ER) 10 Meq Tab 10 MEQ PO BID Electrolyte Replacement #60 Ref 0 TAB Jozef Gilliland MD Sep 20, 2016 11:06
[2016-09-20] MEDS ORDERED: LANTINJ SQ (11:10)
[2016-09-20] MEDS ORDERED: BUME2TAB PO (11:11)
--- NOTE | 2016-09-20 11:14 | HHI.DCPOC ---
Discharge Care Plan Diagnosis: (1) Hyperglycemia (2) Emphysema lung (3) Seizure disorder (4) Pneumonia (5) Essential hypertension (6) Dysphagia (7) CHF (congestive heart failure) (8) Leukocytosis (9) HLD (hyperlipidemia) (10) Acute exacerbation of chronic obstructive pulmonary disease (COPD) Goals to Promote Your Health * To prevent worsening of your condition and complications * To maintain your health at the optimal level Directions to Meet Your Goals Take your medications as prescribed Follow your dietary instruction Follow activity as directed Keep your appointments as scheduled Take your immunizations and boosters as scheduled If your symptoms worsen call your PCP, if no PCP go to Urgent Care Center or Emergency Room Smoking is Dangerous to Your Health. Avoid second hand smoke Call the 24-hour hour crisis hotline for domestic abuse at Jozef Gilliland MD Sep 20, 2016 11:14
--- NOTE | 2016-09-20 11:16 | HHI.FF ---
Face to Face Verification Diagnosis: (1) NICOTINE DEPENDENCE, OTH TOBACCO PRODUCT, W OTH DISORDERS (2) Benign hypertension (3) Chronic obstructive airway disease (4) Illicit drug use (5) Dyslipidemia (6) COPD (chronic obstructive pulmonary disease) (7) Coronary artery disease (8) Hypertension (9) Obesity (10) Sleep apnea (11) Chronic pain (12) Type 2 diabetes mellitus (13) History of congestive heart failure (14) COPD with exacerbation (15) Heart failure with reduced ejection fraction (16) Acute hypercapnic respiratory failure Physical Therapy Order: Evaluate and Treat, Improve ambulation, Strength and gait training Home Health Nursing Order: Medical education Signs/symptoms of disease process Diabetic education CHF education Medication education-adverse effect Nursing assessment with vital signs Home Health Aide Order: To Assist In: Bathing and personal care, tow bar driver and meal prep Loans Consultant Order: To Evaluate: Living conditions/environment, Support services Order: To Provide: Long range planning, Community services I have seen patient Madan Guerra on 09/20/16. My clinical findings support the need for the requested home health care services because: Ltd mobility - disease progression Patient has SOB Deconditioned w/ increased weakness Med compliance is questionable Limited ability to care for self Need for psychosocial assistance Impaired cognition/judgement High risk of falls I certify that my clinical findings support that this patient is homebound because: Impaired cognitive ability/safety Hx COPD- exertion dyspnea/weakness Unsteady gait/balance Unsafe to leave home unassisted Need for psychosocial assistance Unable to use public transportation Poor cardiac reserve Jozef Gilliland MD Sep 20, 2016 11:16
[2016-09-20 11:49] VITALS: BP 127/75; PULSE 102; RESP 20; TEMP 95.9; O2SAT 94
== END 2016-09-20 13:02 | disposition home health service (06) | DRG 189 ==
LOC: NEPE 16:13 → INTOOBSV 19:00 → NEDA 19:00 → NEPGCP 21:45 → OBSVTOIN 09-14 15:22 → N06B 09-14 23:00
PROVIDERS: ADMIT Family Medicine; ATTEND Family Medicine
DX: J96.02 Acute respiratory failure with hypercapnia (principal); G93.40 Encephalopathy, unspecified; I27.81 Cor pulmonale (chronic); I50.30 Unspecified diastolic (congestive) heart failure; Z68.41 Body mass index [BMI] 40.0-44.9, adult; E11.65 Type 2 diabetes mellitus with hyperglycemia; J44.1 Chronic obstructive pulmonary disease with (acute) exacerbation; Z79.4 Long term (current) use of insulin; E66.9 Obesity, unspecified; R00.0 Tachycardia, unspecified; I10 Essential (primary) hypertension; G47.30 Sleep apnea, unspecified; G89.29 Other chronic pain; G40.909 Epilepsy, unspecified, not intractable, without status epilepticus; F17.210 Nicotine dependence, cigarettes, uncomplicated; G47.00 Insomnia, unspecified; K59.00 Constipation, unspecified; F12.90 Cannabis use, unspecified, uncomplicated; K21.9 Gastro-esophageal reflux disease without esophagitis; I25.10 Atherosclerotic heart disease of native coronary artery without angina pectoris
CPT/HCPCS: 71010; 80048; 81001; 82550; 82947; 82948; 83735; 83880; 84484; 85007; 85025; 85027; 85610; 85730; 93005; 94640; 94664; 99285; C9113; J0456; J1644; J1815; J7050

== ENCOUNTER 2016-11-11 14:22 | Inpatient (IN) | payer OTHER ==
[~2016-11-11] VITALS: Ht 177.8 cm; Wt 125.5 kg
[2016-11-11] VITALS (12 sets, daily range): BP systolic 119–157; BP diastolic 58–89; PULSE 100–122; RESP 8–24; TEMP 97.8–98.9; O2SAT 76–98
[~2016-11-11 14:22] MED LIST changes: +ATOR40TA16 PO; -AZIT250T3 PO; -BUME1TAB26 PO; +BUME2TAB PO; -GABA300C5 PO; +HYDR-3799 PO; -HYDR25TA35 PO; +ISOS30TA3 PO; -POTA10TA2 PO; +PROT40TA PO
[2016-11-11 14:37] LABS: MEAN CORPUSCULAR HGB CONC 28.1 % (32.0-36.0)
[2016-11-11] MEDS: RESP: ALBUTEROL 2.5 MG/IPRATROPIUM 0.5 MG NEB (SCH) INH ×2 (14:41→14:42)
[2016-11-11] MEDS ORDERED: methylPREDNISolone SOD SUCC 125 MG/2 ML VIAL IVP ONE (14:45)
--- NOTE | 2016-11-11 15:05 | RADRPT ---
EXAM DATE/TIME: 11/11/2016 14:49 [facility] COMPARISON: CHEST SINGLE AP, September 12, 2016, 17:07. INDICATIONS : Shortness of breath and chest pain. MEDICAL HISTORY : Diabetes mellitus type II. Hypertension Congestive heart failure. Chronic obstructive pulmonary d isease. SURGICAL HISTORY : None. ENCOUNTER: Initial ACUITY: 1 day PAIN SCORE: 5/10 LOCATION: Bilateral chest FINDINGS: The heart is enlarged. Bibasilar patchiness is noted consistent with atelectasis and/or infiltrates. Clinical correlation is recommended. CONCLUSION: 1. Bibasilar patchiness consistent with atelectasis and/or infiltrates. Clinical correlation is rec ommended. 2. Cardiomegaly. Juan Carlos Sarabia MD on November 11, 2016 at 15:00 Board Certified Radiologist. This report was verified electronically.
[2016-11-11] MEDS: SODIUM CHLORIDE 0.9% FLUSH 10 ML FLUSH IVF PRN ×3 (15:08→18:11)
--- NOTE | 2016-11-11 15:24 | PD ---
HPI Chief Complaint: GI Complaint Time Seen by Provider: 14:29 Travel History International Travel<30 days: No Contact w/Intl Traveler<30days: No Traveled to known affect area: No History of Present Illness HPI 56-year-old male arrives via private vehicle from home due to worsening COPD and bloating. He reports a constant sensation of generalized abdominal bloating for several days and is worsening. He reports constipation with almost no flatus over the past few days. He's had no bowel movement either. His laxatives are not helpful. Urination has been normal. The patient is on hospice due to COPD. He is on oxygen 06/11. The patient arrived to the ER via private vehicle however his oxygen tank ran out en route and so he became very short of breath upon arrival with an O2 sat of 64%. PFSH Past Medical History Hx Anticoagulant Therapy: Yes (ASA) Arthritis: No Asthma: Yes Autoimmune Disease: No Blood Disorders: No Anxiety: Yes Depression: No Heart Rhythm Problems: No Cancer: No Cardiac Catheterization: No Cardiovascular Problems: Yes High Cholesterol: No Chest Pain: Yes Congestive Heart Failure: Yes COPD: Yes Cerebrovascular Accident: No Coronary Artery Disease: No Diabetes: Yes Patient Takes Glucophage: No Diminished Hearing: No Endocrine: Yes Gastrointestinal Disorders: Yes GERD: Yes Genitourinary: No Headaches: No Hiatal Hernia: No Hypertension: Yes Immune Disorder: No Implanted Vascular Access Dvce: No Musculoskeletal: Yes Neurologic: Yes Psychiatric: Yes Reproductive: No Respiratory: Yes (COPD) Migraines: No Seizures: Yes Sleep Apnea: Yes Thyroid Disease: No Ulcer: No Past Surgical History Abdominal Surgery: No Coronary Artery Bypass Graft: No Other Surgery: Yes (wart removed right leg) Social History Alcohol Use: No Tobacco Use: Yes (04/17 PPD) Substance Use: No Allergies-Medications (Allergen,Severity, Reaction): Coded Allergies: No Known Allergies (Verified , 09/12/16) Reported Meds & Prescriptions Reported Meds & Active Scripts Active Bumetanide 2 Mg Tab 2 Mg PO BID 90 Days Reported Spironolactone 100 Mg Tab 100 Mg PO BID Morphine Liq (Morphine Sulfate) 20 Mg/Ml Liq 10 Mg PO Q4H PRN Morphine Liq (Morphine Sulfate) 20 Mg/Ml Liq 5 Mg PO Q4H PRN Ventolin Hfa 18 GM Inh (Albuterol Sulfate) 90 Mcg/Act Aer 2 Puff INH Q4H PRN Ventolin Hfa 18 GM Inh (Albuterol Sulfate) 90 Mcg/Act Aer 1 Puff INH Q4H PRN Dulcolax Supp (Bisacodyl) 10 Mg Supp 10 Mg RECTAL DAILY PRN Milk of Magnesia Liq (Magnesium Hydroxide) 400 Mg/5 Ml Susp 30 Ml PO DAILY PRN Lortab (Hydrocodone-Acetaminophen) 10-325 Mg Tab 1 Tab PO Q4H PRN Senna S (Sennosides-Docusate Sodium) 8.6-50 Mg Tab 1-2 Tab PO Q12HR PRN Omeprazole 20 Mg Tab 20 Mg PO DAILY Lorazepam 0.5 Mg Tab 0.5 Mg PO Q4H PRN Lorazepam 1 Mg Tab 1 Mg PO Q4H PRN Lantus Inj (Insulin Glargine) 1,000 Unit/10 Ml Vial 80 Units SQ BID Glipizide 5 Mg Tab 5 Mg PO DAILY Take 30 minutes before a meal Advair Diskus Inh (Fluticasone-Salmeterol Inh) 250-50 Mcg/Blist Aer 2 Puff INH BID Rinse mouth after use. Folic Acid 800 Mcg Tab 800 Mcg PO DAILY Aspirin DR (Aspirin) 81 Mg Tabdr 81 Mg PO DAILY Hydralazine HCl 25 Mg Tablet 25 Mg PO TID Isosorbide Mononitrate ER (Isosorbide Mononitrate) 30 Mg Alexsander 30 Mg PO DAILY Duoneb (Ipratropium-Albuterol Neb) 0.5-2.5 Mg/3 Ml Neb 1 Nebule NEB Q4HR NEB PRN Bupropion HCl 100 Mg Tab 100 Mg PO DAILY Review of Systems Except as stated in HPI: all other systems reviewed are Neg Respiratory: Positive: Shortness of Breath, Wheezing Physical Exam Narrative GENERAL: 56-year-old male WNWD fragmented speech SKIN: Focused skin assessment warm/dry. HEAD: Atraumatic. Normocephalic. EYES: Pupils equal and round. No scleral icterus. No injection or drainage. ENT: No nasal bleeding or discharge. Mucous membranes pink and moist. NECK: Trachea midline. No JVD. CARDIOVASCULAR: Regular rate and rhythm. No murmur appreciated. RESPIRATORY: Wheezing bilaterally. Dyspnea. GASTROINTESTINAL: Abdomen soft. Generalized abdominal protuberance. MUSCULOSKELETAL: No obvious deformities. No clubbing. No cyanosis. No edema. NEUROLOGICAL: Awake and alert. No obvious cranial nerve deficits. Motor grossly within normal limits. Normal speech. PSYCHIATRIC: Appropriate mood and affect; insight and judgment normal. Data Data Last Documented VS Vital Signs Date Time Temp Pulse Resp B/P Pulse Ox O2 Delivery O2 Flow Rate FiO2 11/11/16 17:42 117 22 144/66 96 BiPAP 40 11/11/16 16:00 97.8 3 VS reviewed Orders Complete Blood Count With Diff (11/11/16 14:36) Iv Access Insert/Monitor (11/11/16 14:36) Ecg Monitoring (11/11/16 14:36) Oximetry (11/11/16 14:36) Oxygen Administration (11/11/16 14:36) Chest, Single Ap (11/11/16 14:36) Sodium Chloride 0.9% Flush (Ns Flush) (11/11/16 14:45) Methylprednisolone So Succ Inj (Solumedr (11/11/16 14:45) Albuterol-Ipratropium Neb (Duoneb Neb) (11/11/16 14:45) Electrocardiogram (11/11/16 14:42) Troponin I (11/11/16 14:42) B-Type Natriuretic Peptide (11/11/16 14:42) Blood Culture (11/11/16 15:24) Ceftriaxone Inj (Rocephin Inj) (11/11/16 15:30) Azithromycin Inj (Zithromax Inj) (11/11/16 15:30) Arterial Blood Gas (Abg) (11/11/16 ) Comprehensive Metabolic Panel (11/11/16 15:00) Magnesium (Mg) (11/11/16 15:00) Naloxone Inj (Narcan Inj) (11/11/16 16:45) Resp Bipap / Cpap Non Invas Vt (11/11/16 ) Etomidate Inj (Amidate Inj) (11/11/16 17:45) Succinylcholine Inj (Quelicin Inj) (11/11/16 17:45) Propofol 1000 Mg/100 Ml Inj (Diprivan 10 (11/11/16 17:45) ^ Infusion (11/11/16 17:32) Naloxone Inj (Narcan Inj) (11/11/16 17:45) Naloxone Inj (Narcan Inj) (11/11/16 17:45) Admit Order (Ed Use Only) (11/11/16 17:48) Furosemide Inj (Lasix Inj) (11/11/16 18:00) Labs Laboratory Tests Test 11/11/16 11/11/16 15:00 16:30 White Blood Count 8.2 TH/MM3 Red Blood Count 4.74 MIL/MM3 Hemoglobin 8.6 GM/DL Hematocrit 30.8 % Mean Corpuscular Volume 65.0 FL Mean Corpuscular Hemoglobin 18.2 PG Mean Corpuscular Hemoglobin 28.1 % Concent Red Cell Distribution Width 20.7 % Platelet Count 330 TH/MM3 Mean Platelet Volume 8.0 FL Neutrophils (%) (Auto) 67.2 % Lymphocytes (%) (Auto) 16.1 % Monocytes (%) (Auto) 13.1 % Eosinophils (%) (Auto) 2.5 % Basophils (%) (Auto) 1.1 % Neutrophils # (Auto) 5.5 TH/MM3 Lymphocytes # (Auto) 1.3 TH/MM3 Monocytes # (Auto) 1.1 TH/MM3 Eosinophils # (Auto) 0.2 TH/MM3 Basophils # (Auto) 0.1 TH/MM3 CBC Comment AUTO DIFF Differential Comment AUTO DIFF CONFIRMED Platelet Estimate NORMAL Platelet Morphology Comment NORMAL Polychromasia 2.1 % Basophilic Stippling FAINT Ovalocytes 1+ Sodium Level 130 MEQ/L Potassium Level 4.7 MEQ/L Chloride Level 90 MEQ/L Carbon Dioxide Level 30.9 MEQ/L Anion Gap 9 MEQ/L Blood Urea Nitrogen 23 MG/DL Creatinine 1.09 MG/DL Estimat Glomerular Filtration 70 ML/MIN Rate Random Glucose 355 MG/DL Calcium Level 8.5 MG/DL Magnesium Level 2.1 MG/DL Total Bilirubin 0.5 MG/DL Aspartate Amino Transf 29 U/L (AST/SGOT) Alanine Aminotransferase 179 U/L (ALT/SGPT) Alkaline Phosphatase 199 U/L Troponin I LESS THAN 0.02 NG/ML B-Type Natriuretic Peptide 326 PG/ML Total Protein 6.7 GM/DL Albumin 3.1 GM/DL Blood Gas Puncture Site RT RADIAL Blood Gas Patient Temperature 98.6 Blood Gas HCO3 37 mmol/L Blood Gas Base Excess 10.2 mmol/L Blood Gas Oxygen Saturation 83 % Arterial Blood pH 7.29 Arterial Blood Partial 80 mmHg Pressure CO2 Arterial Blood Partial 60 mmHG Pressure O2 Arterial Blood Oxygen Content 10.4 Vol % Arterial Blood 4.5 % Carboxyhemoglobin Arterial Blood Methemoglobin 0.7 % Blood Gas Hemoglobin 8.9 G/DL Oxygen Delivery Device NASAL CANNULA Blood Gas Liter Flow 3 L/M MDM Medical Decision Making Medical Screen Exam Complete: Yes Emergency Medical Condition: Yes Medical Record Reviewed: Yes Differential Diagnosis CHF, COPD, pneumonia, anemia, renal failure, liver failure, sepsis, hypercarbia , constipation Narrative Course CBC & BMP Diagram 11/11/16 15:00 BNP 326 ALT 179 Alk phos 199 Tn < 0.02 AB./37 BE 10 pO2 60 on 3LNC Last 24 hours Impressions Chest X-Ray 11/11/16 1436 Signed Impressions: Service Date/Time: Friday, November 11, 2016 14:49 - CONCLUSION: 1. Bibasilar patchiness consistent with atelectasis and/or infiltrates. Clinical correlation is recommended. 2. Cardiomegaly. Juan Carlos Sarabia MD About an hour and half and the patient's stay he became increasingly sleepy and arousable but only with fairly noxious stimulus. ABG was obtained and revealed a PCO2 of 80. BIPAP started approx 1 hour later patient was still very sleepy. 2 mg IV Narcan given the patient woke up and stated he had to urinate, piloerection observed in the pupils dilated somewhat. Within about 30 minutes he became sleepy and a second 2 mg Narcan bolus was given and a drip was started. Case discussed with Dr. Zafar of the correctional maintenance technician service. We'll admit the patient to [facility] [place]. Rocephin and azithromycin started. 40mg IV lasix given. Patient is a hospice patient 2/2 COPD. He is at the same time a full code. This was confirmed with monomer purification operator Desirae Coker and patient's daughter. Critical Care Narrative Aggregate critical care time was 40 minutes. Time to perform other separately billable procedures was not included in the critical care time. My time did not include minutes spent treating any other patients simultaneously or on activities that did not directly contribute to the patient's treatment. The services I provided to this patient were to treat and/or prevent clinically significant deterioration that could result in: Cardiopulmonary arrest, hypercarbic respiratory failure I provided critical care services requiring my management, as noted below: Chart data review, documentation time, medication orders and management, vital sign assessments/reviewing monitor data, ordering and reviewing lab tests, ordering and interpreting/reviewing x-rays and diagnostic studies, care of the patient and discussion of the patient with the admitting physicians. Diagnosis Primary Impression: Acute hypercapnic respiratory failure Additional Impressions: Acute exacerbation of chronic obstructive pulmonary disease (COPD) Pneumonia Qualified Code: J18.9 - Pneumonia of both lower lobes due to infectious organism CHF (congestive heart failure) Qualified Code: I50.9 - Congestive heart failure, unspecified congestive heart failure chronicity, unspecified congestive heart failure type Admitting Information Admitting Physician Requests: Admit Flavio Monge MD Nov 11, 2016 15:24
[2016-11-11 15:27] LABS: AUTOMATED NEUTROPHIL # 5.5 TH/MM3 (1.8-7.7); BASOPHIL # 0.1 TH/MM3 (0-0.2); BASOPHIL % 1.1 % (0.0-2.0); EOSINOPHIL # 0.2 TH/MM3 (0-0.4); EOSINOPHIL % 2.5 % (0.0-4.0); HEMATOCRIT 30.8 % (39.0-51.0); LYMPH % 16.1 % (9.0-44.0); LYMPHOCYTE # 1.3 TH/MM3 (1.0-4.8); MEAN CORPUSCULAR HEMOGLOBIN 18.2 PG (27.0-34.0); MONO % 13.1 % (0.0-8.0); NEUT % 67.2 % (16.0-70.0); PLATELET COUNT 330 TH/MM3 (150-450); RED BLOOD COUNT 4.74 MIL/MM3 (4.50-5.90); RED CELL DISTRIBUTION WIDTH 20.7 % (11.6-17.2); WHITE BLOOD COUNT 8.2 TH/MM3 (4.0-11.0)
[2016-11-11] MEDS ORDERED: AZITHROMYCIN INJ 500 MG in SODIUM CHLOR 0.9% 250 ML INJ 250 ML IV ONE (15:30)
[2016-11-11] MEDS ORDERED: cefTRIAXone INJ 1,000 MG in SODIUM CHLORIDE 0.9% INJ 100 ML IV ONE (15:30)
[2016-11-11 15:32] LABS: HEMO FLAGS AUTO DIFF
[2016-11-11] MEDS ORDERED: ASPI81TA5 PO (15:51)
[2016-11-11] MEDS ORDERED: FOLI800T PO (15:51)
[2016-11-11] MEDS ORDERED: ADVA250A INH (15:52)
[2016-11-11] MEDS ORDERED: GLIP5TAB8 PO (15:59)
[2016-11-11] MEDS ORDERED: LORA-373 PO (15:59)
[2016-11-11] MEDS ORDERED: LORA1TAB12 PO (15:59)
[2016-11-11] MEDS ORDERED: LANTUS2P SQ (15:59)
[2016-11-11 16:01] LABS: POLYCHROMASIA 2.1 % (0.0-1.9)
[2016-11-11 16:02] LABS: OVALOCYTES 1+ (NORMAL); PLATELET ESTIMATE SMEAR NORMAL (NORMAL); PLATELET MORPHOLOGY NORMAL (NORMAL); SCAN/DIFF AUTO DIFF CONFIRMED
[2016-11-11] MEDS ORDERED: SENN8.6T8 PO (16:02)
[2016-11-11] MEDS ORDERED: OMEP20TA PO (16:02)
[2016-11-11] MEDS ORDERED: MORP20SO2 PO (16:13)
[2016-11-11] MEDS ORDERED: MILKSUS PO (16:13)
[2016-11-11] MEDS ORDERED: HYDR-3535 PO (16:13)
[2016-11-11] MEDS ORDERED: DULC10SU3 RECTAL (16:13)
[2016-11-11] MEDS ORDERED: VENTAER INH (16:13)
[2016-11-11] MEDS ORDERED: SPIR100T PO (16:16)
[2016-11-11 16:39] LABS: BLOOD GAS BASE EXCESS 10.2 mmol/L (-2-2); BLOOD GAS CARBOXYHEMOGLOBIN 4.5 % (0-4); BLOOD GAS HCO3 37 mmol/L (22-26); BLOOD GAS METHEMOGLOBIN 0.7 % (0-2); BLOOD GAS O2 HGB SATURATION 83 % (90-100); BLOOD GAS OXYGEN CONTENT 10.4 Vol % (12.0-20.0); BLOOD GAS PCO2 80 mmHg (38-42); BLOOD GAS PO2 60 mmHG (61-120); BLOOD GAS TOTAL HGB 8.9 G/DL (12.0-16.0); CRITICAL VALUE YES; OXYGEN DEVICE NASAL CANNULA; TEMP CORR TO 98.6
[2016-11-11 16:39] LABS: CHLORIDE 90 MEQ/L (98-107); POTASSIUM 4.7 MEQ/L (3.5-5.1); SODIUM (NA) 130 MEQ/L (136-145)
[2016-11-11 16:40] LABS: MAGNESIUM 2.1 MG/DL (1.5-2.5)
[2016-11-11 16:40] LABS: DRAW SITE RT RADIAL; LITER FLOW 3 L/M; NUMBER OF ARTERIAL PUNCTURES 1; STAT YES; ULNAR PULSE PRESENT
[2016-11-11 16:42] LABS: ALT (GPT) 179 U/L (12-78); ANION GAP 9 MEQ/L (5-15); AST (GOT) 29 U/L (15-37); BICARBONATE 30.9 MEQ/L (21.0-32.0); BLOOD UREA NITROGEN 23 MG/DL (7-18); GLOMERULAR FILTRATION RATE 70 ML/MIN (>89)
[2016-11-11 16:43] LABS: ALKALINE PHOSPHATASE 199 U/L (45-117); TOTAL BILIRUBIN ADULT 0.5 MG/DL (0.2-1.0)
[2016-11-11] MEDS ORDERED: NALOXONE HCL 0.4 MG/ML AMP IV PUSH PRN (16:45)
[2016-11-11] MEDS ORDERED: SUCCINYLCHOLINE CHLORIDE 200 MG/10 ML VIAL IV PUSH ONE (17:45)
[2016-11-11] MEDS ORDERED: NALOXONE HCL 2 MG/2 ML VIAL IV PUSH ONE ×2 (17:45→18:15)
[2016-11-11] MEDS ORDERED: ETOMIDATE 20 MG/10 ML VIAL IV PUSH ONE (17:45)
[2016-11-11] MEDS ORDERED: PROPOFOL 1000 MG/100 ML INJ 100 ML IV SCH (17:45)
[2016-11-11] MEDS ORDERED: NALOXONE INJ 4 MG in DEXTROSE 5% IN WATER INJ 246 ML IV SCH ×2 (17:45)
[2016-11-11] MEDS ORDERED: FUROSEMIDE 40 MG/4 ML VIAL IV PUSH ONE (18:00)
[2016-11-11 18:53] LABS: AMPHETAMINE, URINE NEG (NEG); BARBITURATES, URINE NEG (NEG); COCAINE, URINE NEG (NEG)
[2016-11-11] MEDS ORDERED: ONDANSETRON HCL 4 MG/2 ML VIAL IV PRN (20:15)
[2016-11-11] MEDS ORDERED: SODIUM CHLORIDE 0.9% FLUSH 10 ML FLUSH PRN (20:15)
[2016-11-11] MEDS ORDERED: ACETAMINOPHEN 325 MG TAB PO PRN (20:15)
[2016-11-11] MEDS ORDERED: ZOLPIDEM TARTRATE 5 MG TAB PO PRN (20:15)
[2016-11-11] MEDS ORDERED: RESP: ALBUTEROL 2.5 MG/IPRATROPIUM 0.5 MG NEB (PRN) INH (20:15)
[2016-11-11] MEDS ORDERED: LORazepam 0.5 MG TAB PO PRN (20:15)
[2016-11-11] MEDS ORDERED: MORPHINE SULFATE ORAL SOLN 10 MG/0.5 ML SYRINGE PO PRN ×2 (20:15)
[2016-11-11] MEDS ORDERED: CHLORHEXIDINE GLUCONATE 2 % 1 PACK (2 CLOTHS) TOP PRN (20:15)
[2016-11-11] MEDS ORDERED: BISACODYL 10 MG SUPP RECTAL PRN (20:15)
[2016-11-11] MEDS ORDERED: SENNOSIDES 8.6 MG TAB PO PRN (20:15)
[2016-11-11] MEDS ORDERED: MISCELLANEOUS NURSING INFORMATION XX SCH (20:15)
[2016-11-11] MEDS ORDERED: LACTULOSE SYRUP 20 GM/30 ML CUP PO PRN (20:15)
--- NOTE | 2016-11-11 20:17 | HHI.HP ---
HPI Service Critical Care Medicine Primary Care Physician Jozef Gilliland MD Admission Diagnosis Hypercarbic Resp Failure; CHF Diagnosis: Travel History International Travel<30 Days: No Contact w/Intl Traveler <30 Da: No Traveled to Known Affected Are: No History of Present Illness 56-year-old obese male arrives via private vehicle from home due to worsening COPD and bloating. He reports a constant sensation of generalized abdominal bloating for several days and it has been is worsening. He reports constipation with almost no flatus over the past few days. He's had no bowel movement either. He has been trying some [id number] laxatives without effect. The patient is on home hospice due to COPD. He is on oxygen 06/11. The patient arrived to the ER via private vehicle however his oxygen tank ran out en route and so he became very short of breath upon arrival with an O2 sat of 64 %. Review of Systems ROS Unobtainable patient on facemask bus BiPAP in moderate distress Past Family Social History Allergies: Coded Allergies: No Known Allergies (Verified , 09/12/16) Past Medical History COPD HTN DM JEFF Seizures GERD Past Surgical History Cardiac catheterization 2014 Reported Medications Reported Meds & Active Scripts Active Bumetanide 2 Mg Tab 2 Mg PO BID 90 Days Reported Spironolactone 100 Mg Tab 100 Mg PO BID Morphine Liq (Morphine Sulfate) 20 Mg/Ml Liq 10 Mg PO Q4H PRN Morphine Liq (Morphine Sulfate) 20 Mg/Ml Liq 5 Mg PO Q4H PRN Ventolin Hfa 18 GM Inh (Albuterol Sulfate) 90 Mcg/Act Aer 2 Puff INH Q4H PRN Ventolin Hfa 18 GM Inh (Albuterol Sulfate) 90 Mcg/Act Aer 1 Puff INH Q4H PRN Dulcolax Supp (Bisacodyl) 10 Mg Supp 10 Mg RECTAL DAILY PRN Milk of Magnesia Liq (Magnesium Hydroxide) 400 Mg/5 Ml Susp 30 Ml PO DAILY PRN Lortab (Hydrocodone-Acetaminophen) 10-325 Mg Tab 1 Tab PO Q4H PRN Senna S (Sennosides-Docusate Sodium) 8.6-50 Mg Tab 1-2 Tab PO Q12HR PRN Omeprazole 20 Mg Tab 20 Mg PO DAILY Lorazepam 0.5 Mg Tab 0.5 Mg PO Q4H PRN Lorazepam 1 Mg Tab 1 Mg PO Q4H PRN Lantus Inj (Insulin Glargine) 1,000 Unit/10 Ml Vial 80 Units SQ BID Glipizide 5 Mg Tab 5 Mg PO DAILY Take 30 minutes before a meal Advair Diskus Inh (Fluticasone-Salmeterol Inh) 250-50 Mcg/Blist Aer 2 Puff INH BID Rinse mouth after use. Folic Acid 800 Mcg Tab 800 Mcg PO DAILY Aspirin DR (Aspirin) 81 Mg Tabdr 81 Mg PO DAILY Hydralazine HCl 25 Mg Tablet 25 Mg PO TID Isosorbide Mononitrate ER (Isosorbide Mononitrate) 30 Mg Alexsander 30 Mg PO DAILY Duoneb (Ipratropium-Albuterol Neb) 0.5-2.5 Mg/3 Ml Neb 1 Nebule NEB Q4HR NEB PRN Bupropion HCl 100 Mg Tab 100 Mg PO DAILY Active Ordered Medications Current Medications Medications (Trade) Dose Ordered Sig/Whit Route PRN Reason Start Time Stop Time Status Last Admin Dose Admin Naloxone HCl/ Dextrose (Narcan Inj/D5W Inj) 250 ml @ 0 mls/hr TITRATE IV 11/11/16 17:45 11/11/16 18:01 Aspirin (Ecotrin Ec) 81 mg DAILY PO 11/12/16 09:00 Bumetanide (Bumetanide) 2 mg BID PO 11/11/16 21:00 11/11/16 21:52 Bupropion HCl (Wellbutrin) 100 mg DAILY PO 11/12/16 09:00 Folic Acid (Folate) 1 mg DAILY PO 11/12/16 09:00 Hydralazine HCl (Apresoline) 25 mg TID PO 11/12/16 09:00 Acetaminophen/ Hydrocodone Bitart (Balaton 10-325 Mg) 1 tab Q4H PRN PO PAIN 1-10 11/11/16 20:15 Insulin Detemir (Levemir Inj) 80 units BID SQ 11/11/16 21:00 11/11/16 21:54 Isosorbide Mononitrate (Imdur) 30 mg DAILY PO 11/12/16 09:00 Lorazepam (Ativan) 0.5 mg Q4H PRN PO MILD/MODERATE ANXIETY/SOB 11/11/16 20:15 Lorazepam (Ativan) 1 mg Q4H PRN PO MODERATE/SEVERE ANXIETY/SOB 11/11/16 20:15 Morphine Sulfate (Roxanol Liq) 5 mg Q4H PRN PO MILD/MODERATE SOB/WHEEZING 11/11/16 20:15 Morphine Sulfate (Roxanol Liq) 10 mg Q4H PRN PO SEVERE SOB/WHEEZING 11/11/16 20:15 Spironolactone (Aldactone) 100 mg BID PO 11/11/16 21:00 Budesonide/ Formoterol Fumarate (Symbicort 160-4.5 Inh) 1 puff BID INH 11/11/16 21:00 Pantoprazole Sodium (Protonix) 20 mg DAILY PO 11/12/16 09:00 Sodium Chloride (NS Flush) 2 ml UNSCH PRN .XX FLUSH AFTER USING IV ACCESS 11/11/16 20:15 Sodium Chloride (NS Flush) 2 ml BID .XX 11/11/16 21:00 Acetaminophen (Tylenol) 650 mg Q6H PRN PO FEVER >101F 11/11/16 20:15 Ondansetron HCl (Zofran Inj) 4 mg Q6H PRN IV NAUSEA OR VOMITING 11/11/16 20:15 Zolpidem Tartrate (Ambien) 5 mg HS PRN PO INSOMNIA 11/11/16 20:15 Heparin Sodium (Porcine) (Heparin Inj) 5,000 units Q8H SQ 11/11/16 22:00 11/11/16 21:52 Miscellaneous Information 1 Q361D XX 11/11/16 20:15 11/11/16 20:15 Chlorhexidine Gluconate (Chlorhexidine 2% Cloth) 3 pack Taper DAILY@04 TOP 11/12/16 04:00 11/08/17 03:59 Chlorhexidine Gluconate (Chlorhexidine 2% Cloth) 3 pack UNSCH PRN TOP HYGIENIC CARE 11/11/16 20:15 Senna/Docusate Sodium (Amira-Colace) 1 tab BID PO 11/11/16 21:00 11/11/16 21:52 Magnesium Hydroxide (Milk Of Magnesia Liq) 30 ml Q12H PRN PO MILD - MODERATE CONSTIPATION 11/11/16 20:15 Sennosides (Senokot) 17.2 mg Q12H PRN PO MODERATE - SEVERE CONSTIPATION 11/11/16 20:15 Bisacodyl (Dulcolax Supp) 10 mg DAILY PRN RECTAL SEVERE CONSITIPATION 11/11/16 20:15 Lactulose 30 ml 30 ml DAILY PRN PO SEVERE CONSITIPATION 11/11/16 20:15 Cefepime HCl 2000 mg/Sodium Chloride 100 ml @ 200 mls/hr Q8H IV 11/11/16 22:00 Azithromycin/ Sodium Chloride (Zithromax Inj/ NS 250 ml Inj) 250 ml @ 250 mls/hr Q24H IV 11/12/16 16:00 Dextrose (D50w (Vial) Inj) 50 ml UNSCH PRN IV HYPOGLYCEMIA-SEE COMMENTS 11/11/16 20:30 Glucagon (Glucagon Inj) 1 mg UNSCH PRN OTHER HYPOGLYCEMIA-SEE COMMENTS 11/11/16 20:30 Methylprednisolone Sodium Succinate (SoluMEDROL INJ) 60 mg Q12HR IV PUSH 11/11/16 21:00 11/11/16 21:52 Family History Father, age 27, liver cirrhosis Mother, , old age Social History (+)tobacco use 1 1/2 ppd No EtOH use No illicit drug use Use of medical marijuana Physical Exam Vital Signs Vital Signs Date Time Temp Pulse Resp B/P Pulse Ox O2 Delivery O2 Flow Rate FiO2 11/11/16 19:31 106 18 157/68 95 11/11/16 18:13 111 22 145/89 96 BiPAP 40 11/11/16 17:42 117 22 144/66 96 BiPAP 40 11/11/16 16:48 95 45 11/11/16 16:00 97.8 100 16 135/62 95 Nasal Cannula 3 11/11/16 15:05 95 Nasal Cannula 3 11/11/16 15:05 24 95 Nasal Cannula 3 11/11/16 14:25 98.9 122 24 129/69 76 Room Air Physical Exam GENERAL: Obese male on facemask BiPAP in moderate respiratory distress SKIN: Warm and dry. HEAD: Normocephalic. EYES: No scleral icterus. No injection or drainage. NECK: Supple, trachea midline. No JVD or lymphadenopathy. CARDIOVASCULAR: Regular rate and rhythm without murmurs, gallops, or rubs. RESPIRATORY: Breath sounds equal bilaterally however decreased irritation bilaterally also. Some accessory muscle use. GASTROINTESTINAL: Abdomen soft, non-tender, nondistended. MUSCULOSKELETAL: No cyanosis, or edema. BACK: Nontender without obvious deformity. No CVA tenderness. EXTREMITIES: No clubbing or cyanosis Laboratory Laboratory Tests Test 11/11/16 11/11/16 11/11/16 15:00 16:30 18:20 White Blood Count 8.2 Red Blood Count 4.74 Hemoglobin 8.6 Hematocrit 30.8 Mean Corpuscular Volume 65.0 Mean Corpuscular Hemoglobin 18.2 Mean Corpuscular Hemoglobin 28.1 Concent Red Cell Distribution Width 20.7 Platelet Count 330 Mean Platelet Volume 8.0 Neutrophils (%) (Auto) 67.2 Lymphocytes (%) (Auto) 16.1 Monocytes (%) (Auto) 13.1 Eosinophils (%) (Auto) 2.5 Basophils (%) (Auto) 1.1 Neutrophils # (Auto) 5.5 Lymphocytes # (Auto) 1.3 Monocytes # (Auto) 1.1 Eosinophils # (Auto) 0.2 Basophils # (Auto) 0.1 CBC Comment AUTO DIFF Differential Comment AUTO DIFF CONFIRMED Platelet Estimate NORMAL Platelet Morphology Comment NORMAL Polychromasia 2.1 Basophilic Stippling FAINT Ovalocytes 1+ Sodium Level 130 Potassium Level 4.7 Chloride Level 90 Carbon Dioxide Level 30.9 Anion Gap 9 Blood Urea Nitrogen 23 Creatinine 1.09 Estimat Glomerular Filtration 70 Rate Random Glucose 355 Calcium Level 8.5 Magnesium Level 2.1 Total Bilirubin 0.5 Aspartate Amino Transf 29 (AST/SGOT) Alanine Aminotransferase 179 (ALT/SGPT) Alkaline Phosphatase 199 Troponin I LESS THAN 0.02 B-Type Natriuretic Peptide 326 Total Protein 6.7 Albumin 3.1 Blood Gas Puncture Site RT RADIAL Blood Gas Patient Temperature 98.6 Blood Gas HCO3 37 Blood Gas Base Excess 10.2 Blood Gas Oxygen Saturation 83 Arterial Blood pH 7.29 Arterial Blood Partial 80 Pressure CO2 Arterial Blood Partial 60 Pressure O2 Arterial Blood Oxygen Content 10.4 Arterial Blood 4.5 Carboxyhemoglobin Arterial Blood Methemoglobin 0.7 Blood Gas Hemoglobin 8.9 Oxygen Delivery Device NASAL CANNULA Blood Gas Liter Flow 3 Urine Opiates Screen POS Urine Barbiturates Screen NEG Urine Amphetamines Screen NEG Urine Benzodiazepines Screen NEG Urine Cocaine Screen NEG Urine Cannabinoids Screen POS Date/Time Procedure Status Source Growth 11/11/16 16:14 Aerobic Blood Culture Received Blood Peripheral Pending 11/11/16 16:14 Anaerobic Blood Culture Received Blood Peripheral Pending Result Diagram: 11/11/16 1500 11/11/16 1500 Imaging Last 24 hours Impressions Chest X-Ray 11/11/16 1436 Signed Impressions: Service Date/Time: Friday, November 11, 2016 14:49 - CONCLUSION: 1. Bibasilar patchiness consistent with atelectasis and/or infiltrates. Clinical correlation is recommended. 2. Cardiomegaly. Juan Carlos Sarabia MD Assessment and Plan Assessment and Plan Respiratory failure COPD exacerbation - IV steroid - BiPAP - Empiric antibiotic - Morphine Liq when necessary for air hunger Hypertension - Spironolactone - Bumetanide - Hydralazine - Isosorbide Mononitrate Diabetes mellitus - Lantus - Insulin sliding scale JEFF - Nocturnal BiPAP GERD - Omeprazole DVT GI prophylaxis - Teds SCDs subcutaneous heparin - Omeprazole Critical Care: The total critical care time was 35 minutes. Time to perform other separately billable procedures was not included in the critical care time. Igor Azevedo MD Nov 11, 2016 20:17
[2016-11-11] MEDS ORDERED: GLUCAGON 1 MG/ML VIAL OTHER PRN (20:30)
[2016-11-11] MEDS ORDERED: DEXTROSE 50% IN WATER 50 ML VIAL(D50) IV PRN (20:30)
[2016-11-11 20:49] LABS: BLOOD GAS BASE EXCESS 10.8 mmol/L (-2-2); BLOOD GAS CARBOXYHEMOGLOBIN 3.6 % (0-4); BLOOD GAS HCO3 38 mmol/L (22-26); BLOOD GAS METHEMOGLOBIN 0.5 % (0-2); BLOOD GAS O2 HGB SATURATION 92 % (90-100); BLOOD GAS OXYGEN CONTENT 11.9 Vol % (12.0-20.0); BLOOD GAS PCO2 85 mmHg (38-42); BLOOD GAS PO2 89 mmHG (61-120); BLOOD GAS TOTAL HGB 9.1 G/DL (12.0-16.0); TEMP CORR TO 98.6
[2016-11-11 20:50] LABS: CRITICAL VALUE YES; DRAW SITE LT RADIAL; FIO2 40 %; NUMBER OF ARTERIAL PUNCTURES 1; OXYGEN DEVICE BiPAP; STAT YES; ULNAR PULSE PRESENT; VENT SETTINGS IPAP12/EPAP5
[2016-11-11 21:06] LABS: MEAN CORPUSCULAR HGB CONC 28.5 % (32.0-36.0)
[2016-11-11] MEDS: DOCUSATE SODIUM 50 MG/SENNA 8.6 MG TAB PO SCH (21:52)
[2016-11-11] MEDS: methylPREDNISolone SOD SUCC 125 MG/2 ML VIAL IV PUSH SCH (21:52)
[2016-11-11] MEDS: BUMETANIDE 1 MG TAB PO SCH (21:52)
[2016-11-11] MEDS: HEPARIN SODIUM - SQ 10,000 UNITS/ML VIAL SQ SCH (21:52)
[2016-11-11] MEDS: INSULIN ASPART SUPPLEMENTAL SCALE SQ SCH (21:53)
[2016-11-11] MEDS: INSULIN DETEMIR 100 UNITS/ML VIAL SQ SCH (21:54)
[2016-11-11] MEDS: BUDESONIDE-FORMOTEROL 160/4.5 MCG INHALER INH SCH (22:43)
[2016-11-11] MEDS: CEFEPIME INJ 2,000 MG in SODIUM CHLORIDE 0.9% INJ 100 ML IV SCH (22:43)
[2016-11-11] MEDS: SODIUM CHLORIDE 0.9% FLUSH 10 ML FLUSH SCH (22:44)
[2016-11-11] MEDS: SPIRONOLACTONE 100 MG TAB PO SCH (22:44)
[2016-11-11 23:41] LABS: BLOOD GAS BASE EXCESS 10.1 mmol/L (-2-2); BLOOD GAS CARBOXYHEMOGLOBIN 3.5 % (0-4); BLOOD GAS HCO3 37 mmol/L (22-26); BLOOD GAS METHEMOGLOBIN 1.3 % (0-2); BLOOD GAS O2 HGB SATURATION 88 % (90-100); BLOOD GAS OXYGEN CONTENT 11.4 Vol % (12.0-20.0); BLOOD GAS PCO2 89 mmHg (38-42); BLOOD GAS PO2 75 mmHg (61-120); BLOOD GAS TOTAL HGB 9.1 G/DL (12.0-16.0); OXYGEN DEVICE BIPAP; TEMP CORR TO 98.6
[2016-11-11 23:42] LABS: DRAW SITE RT RADIAL; FIO2 45 %; NUMBER OF ARTERIAL PUNCTURES 1; STAT NO; VENT SETTINGS IPAP 16/EPAP 5
[2016-11-12] VITALS (16 sets, daily range): BP systolic 130–166; BP diastolic 57–77; PULSE 79–111; RESP 15–20; TEMP 97.5–99; O2SAT 92–97
[2016-11-12] MEDS: RESP: ALBUTEROL 2.5 MG/IPRATROPIUM 0.5 MG NEB (SCH) INH ×6 (01:22→22:20)
[2016-11-12 03:17] LABS: BLOOD GAS BASE EXCESS 11.8 mmol/L (-2-2); BLOOD GAS CARBOXYHEMOGLOBIN 3.1 % (0-4); BLOOD GAS HCO3 38 mmol/L (22-26); BLOOD GAS METHEMOGLOBIN 1.1 % (0-2); BLOOD GAS O2 HGB SATURATION 93 % (90-100); BLOOD GAS PCO2 79 mmHg (38-42); BLOOD GAS PO2 97 mmHg (61-120); BLOOD GAS TOTAL HGB 9.1 G/DL (12.0-16.0); TEMP CORR TO 98.6
[2016-11-12 03:18] LABS: CRITICAL VALUE YES; DRAW SITE RT RADIAL; FIO2 45 %; NUMBER OF ARTERIAL PUNCTURES 1; OXYGEN DEVICE BIPAP; STAT NO; ULNAR PULSE PRESENT; VENT SETTINGS IPAP16/EPAP5
[2016-11-12] MEDS: LORazepam 1 MG TAB PO PRN (03:42)
[2016-11-12] MEDS: CHLORHEXIDINE GLUCONATE 2 % 1 PACK (2 CLOTHS) TOP SCH (03:59)
[2016-11-12] MEDS: ACETAMINOPHEN/HYDROcodone 325 MG/10 MG TAB PO PRN ×2 (03:59→21:02)
[2016-11-12] MEDS: CEFEPIME INJ 2,000 MG in SODIUM CHLORIDE 0.9% INJ 100 ML IV SCH ×3 (05:12→20:53)
[2016-11-12] MEDS: HEPARIN SODIUM - SQ 10,000 UNITS/ML VIAL SQ SCH ×3 (05:12→20:49)
[2016-11-12 05:20] LABS: BASOPHIL # 0.1 TH/MM3 (0-0.2); BASOPHIL % 0.9 % (0.0-2.0); HEMATOCRIT 32.2 % (39.0-51.0); LYMPH % 4.7 % (9.0-44.0); LYMPHOCYTE # 0.3 TH/MM3 (1.0-4.8); MEAN CELL VOLUME 64.7 FL (80.0-100.0); MEAN CORPUSCULAR HEMOGLOBIN 18.5 PG (27.0-34.0); MONO % 1.3 % (0.0-8.0); NEUT % 93.1 % (16.0-70.0); PLATELET COUNT 296 TH/MM3 (150-450); RED BLOOD COUNT 4.97 MIL/MM3 (4.50-5.90); RED CELL DISTRIBUTION WIDTH 20.2 % (11.6-17.2); WHITE BLOOD COUNT 6.5 TH/MM3 (4.0-11.0)
[2016-11-12 05:28] LABS: HEMO FLAGS AUTO DIFF
[2016-11-12 05:43] LABS: ANION GAP 4 MEQ/L (5-15); AST (GOT) 24 U/L (15-37); BICARBONATE 39.7 MEQ/L (21.0-32.0); BLOOD UREA NITROGEN 21 MG/DL (7-18); CHLORIDE 89 MEQ/L (98-107); GLOMERULAR FILTRATION RATE 78 ML/MIN (>89); POTASSIUM 4.6 MEQ/L (3.5-5.1); SODIUM (NA) 133 MEQ/L (136-145)
[2016-11-12 05:44] LABS: ALT (GPT) 162 U/L (12-78)
[2016-11-12 05:46] LABS: ALKALINE PHOSPHATASE 193 U/L (45-117); TOTAL BILIRUBIN ADULT 0.7 MG/DL (0.2-1.0)
[2016-11-12] MEDS: INSULIN ASPART SUPPLEMENTAL SCALE SQ SCH ×4 (05:51→20:50)
[2016-11-12 05:57] LABS: OVALOCYTES 1+ (NORMAL); TARGET CELLS 2+ (NORMAL)
[2016-11-12 05:58] LABS: PLATELET ESTIMATE SMEAR NORMAL (NORMAL); PLATELET MORPHOLOGY NORMAL (NORMAL); SCAN/DIFF AUTO DIFF CONFIRMED
[2016-11-12] MEDS: buPROPion HCL 100 MG TAB PO SCH (08:16)
[2016-11-12] MEDS: FOLIC ACID 1 MG TAB PO SCH (08:16)
[2016-11-12] MEDS: BUMETANIDE 1 MG TAB PO SCH ×2 (08:16→20:49)
[2016-11-12] MEDS: SPIRONOLACTONE 100 MG TAB PO SCH ×2 (08:16→20:53)
[2016-11-12] MEDS: ISOSORBIDE MONONITRATE 30 MG TAB PO SCH (08:16)
[2016-11-12] MEDS: DOCUSATE SODIUM 50 MG/SENNA 8.6 MG TAB PO SCH ×2 (08:16→20:49)
[2016-11-12] MEDS: INSULIN DETEMIR 100 UNITS/ML VIAL SQ SCH ×2 (08:16→20:51)
[2016-11-12] MEDS: PANTOPRAZOLE SOD 20 MG DELAYED RELEASE TAB PO SCH (08:17)
[2016-11-12] MEDS: ASPIRIN EC 81 MG TABEC PO SCH (08:17)
[2016-11-12] MEDS: MAGNESIUM HYDROXIDE SUSP 30 ML CUP PO PRN (08:17)
[2016-11-12] MEDS: hydrALAZINE HCL 25 MG TAB PO SCH ×3 (08:17→17:29)
[2016-11-12] MEDS: methylPREDNISolone SOD SUCC 125 MG/2 ML VIAL IV PUSH SCH ×2 (08:17→20:49)
[2016-11-12] MEDS: BUDESONIDE-FORMOTEROL 160/4.5 MCG INHALER INH SCH ×2 (08:18→20:51)
[2016-11-12] MEDS: SODIUM CHLORIDE 0.9% FLUSH 10 ML FLUSH SCH ×2 (08:18→20:52)
--- NOTE | 2016-11-12 09:09 | HHI.PR ---
Subjective Remarks Follow-up for respiratory failure Patient is sitting in the chair but is sleeping. When broken up by me he's very lethargic and intermittently sleeps throughout our interview. Patient stated that his breathing has improved. He had no other complaints but as stated earlier he was very sleepy. His nurse is at the bedside. Per patient's nurse CT scan the abdomen was ordered because patient had constipation. He has not had any nausea or vomiting or abdominal pain. Her patient's nurse patient unable to drink the oral contrast. d/w patient's nurse. Objective Vitals Vital Signs Date Time Temp Pulse Resp B/P Pulse Ox O2 Delivery O2 Flow Rate FiO2 11/12/16 07:23 97 45 11/12/16 03:25 97 45 11/12/16 03:04 98.0 105 17 148/65 96 11/12/16 03:04 103 11/12/16 03:04 96 Bi-Pap 45 11/12/16 01:22 94 45 11/11/16 23:23 98.5 104 16 129/69 93 11/11/16 23:23 93 Bi-Pap 45 11/11/16 23:23 104 11/11/16 22:00 98.5 108 8 150/88 98 11/11/16 22:00 98 Bi-Pap 40 11/11/16 22:00 108 11/11/16 20:54 104 20 135/58 98 BiPAP 11/11/16 20:18 106 18 119/58 97 Room Air 11/11/16 20:14 95 40 11/11/16 20:14 95 BiPAP 40 11/11/16 19:31 106 18 157/68 95 11/11/16 18:13 111 22 145/89 96 BiPAP 40 11/11/16 17:42 117 22 144/66 96 BiPAP 40 11/11/16 16:48 95 45 11/11/16 16:00 97.8 100 16 135/62 95 Nasal Cannula 3 11/11/16 15:05 95 Nasal Cannula 3 11/11/16 15:05 24 95 Nasal Cannula 3 11/11/16 14:25 98.9 122 24 129/69 76 Room Air I/O 11/11/16 11/11/16 11/11/16 11/12/16 11/12/16 11/12/16 07:00 15:00 23:00 07:00 15:00 23:00 Intake Total 568 ml Output Total 1000 ml 2300 ml Balance -1000 ml -1732 ml Intake Oral 480 ml IV Total 88 ml Output Urine Total 1000 ml 2300 ml # Voids 2 1 # Bowel Movements 0 Result Diagram: 11/12/1643811/12/16438 Objective Remarks GENERAL: 56-year-old morbid obese male on BiPAP in no acute distress but very lethargic. NECK: Supple, trachea midline. No JVD or lymphadenopathy. CARDIOVASCULAR: Regular rate and rhythm without murmurs, gallops, or rubs. RESPIRATORY: Very distant posterior lung sounds. Anterior lung sounds are clear to auscultation bilaterally. No wheezing rhonchi or crackles noted. No accessory muscle use. GASTROINTESTINAL: Abdomen soft, non-tender, nondistended. Medications and IVs Current Medications Sodium Chloride (NS Flush) 2 ml UNSCH PRN IVF FLUSH AFTER USING IV ACCESS Last administered on 11/11/16 18:11; Start 11/11/16 at 14:45; Stop 11/11/16 at 20:30 ; Status DC Methylprednisolone Sodium Succinate (SoluMEDROL INJ) 125 mg ONCE ONCE IVP Last administered on 11/11/16 15:08; Start 11/11/16 at 14:45; Stop 11/11/16 at 17:43; Status DC Albuterol/ Ipratropium 1 ampule 1 ampule Q15M INH Last administered on 14:42; Start 11/11/16 at 14:45; Stop 11/11/16 at 15:16; Status DC Ceftriaxone Sodium 1000 mg/ Sodium Chloride 100 ml @ 200 mls/hr ONCE ONCE IV Last administered on 11/11/16 16:13; Start 11/11/16 at 15:30; Stop 11/11/16 at 15:59; Status DC Azithromycin/ Sodium Chloride (Zithromax Inj/ NS 250 ml Inj) 250 ml @ 250 mls/ hr ONCE ONCE IV Last administered on 11/11/16 16:14; Start 11/11/16 at 15:30 ; Stop 11/11/16 at 16:29; Status DC Naloxone HCl (Narcan Inj) 0.4 mg UNSCH X1 PRN IV PUSH RESP DEPRESSION OR HYPOTENSION; Start 11/11/16 at 16:45; Stop 11/11/16 at 17:43; Status DC Etomidate (Amidate Inj) 20 mg ONCE ONCE IV PUSH ; Start 11/11/16 at 17:45; Stop 11/11/16 at 17:45; Status DC Succinylcholine Chloride 100 mg 100 mg ONCE ONCE IV PUSH ; Start 11/11/16 at 17 :45; Stop 11/11/16 at 17:45; Status DC Propofol (Diprivan 1000 Mg/100ml Inj) 100 ml @ 0 mls/hr TITRATE IV ; Start 11/11 at 17:45; Stop 11/11/16 at 17:45; Status DC Naloxone HCl 2 mg 2 mg ONCE ONCE IV PUSH Last administered on 11/11/16 17:40 ; Start 11/11/16 at 17:45; Stop 11/11/16 at 17:46; Status DC Naloxone HCl/ Dextrose (Narcan Inj/D5W Inj) 250 ml @ 0 mls/hr TITRATE IV Last administered on 11/11/16 18:01; Start 11/11/16 at 17:45 Furosemide (Lasix Inj) 40 mg ONCE ONCE IV PUSH Last administered on 11/11/16 17:59; Start 11/11/16 at 18:00; Stop 11/11/16 at 18:01; Status DC Naloxone HCl (Narcan Inj) 2 mg ONCE ONCE IV PUSH Last administered on 18:10; Start 11/11/16 at 18:15; Stop 11/11/16 at 18:16; Status DC Aspirin (Ecotrin Ec) 81 mg DAILY PO Last administered on 11/12/16 08:17; Start 11/12/16 at 09:00 Bumetanide (Bumetanide) 2 mg BID PO Last administered on 11/12/16 08:16; Start 11/11/16 at 21:00 Bupropion HCl (Wellbutrin) 100 mg DAILY PO Last administered on 11/12/16 08:16 ; Start 11/12/16 at 09:00 Folic Acid (Folate) 1 mg DAILY PO Last administered on 11/12/16 08:16; Start 11/12/16 at 09:00 Hydralazine HCl (Apresoline) 25 mg TID PO Last administered on 11/12/16 08:17 ; Start 11/12/16 at 09:00 Acetaminophen/ Hydrocodone Bitart ([place] 10-325 Mg) 1 tab Q4H PRN PO PAIN 1-10 Last administered on 11/12/16 03:59; Start 11/11/16 at 20:15 Insulin Detemir (Levemir Inj) 80 units BID SQ Last administered on 11/12/16 08 :16; Start 11/11/16 at 21:00 Isosorbide Mononitrate (Imdur) 30 mg DAILY PO Last administered on 11/12/16 08 :16; Start 11/12/16 at 09:00 Lorazepam (Ativan) 0.5 mg Q4H PRN PO MILD/MODERATE ANXIETY/SOB; Start 11/11/16 at 20:15 Lorazepam (Ativan) 1 mg Q4H PRN PO MODERATE/SEVERE ANXIETY/SOB Last administered on 11/12/16 03:42; Start 11/11/16 at 20:15 Morphine Sulfate (Roxanol Liq) 5 mg Q4H PRN PO MILD/MODERATE SOB/WHEEZING; Start 11/11/16 at 20:15 Morphine Sulfate (Roxanol Liq) 10 mg Q4H PRN PO SEVERE SOB/WHEEZING; Start at 20:15 Spironolactone (Aldactone) 100 mg BID PO Last administered on 11/12/16 08:16; Start 11/11/16 at 21:00 Budesonide/ Formoterol Fumarate (Symbicort 160-4.5 Inh) 1 puff BID INH Last administered on 11/12/16 08:18; Start 11/11/16 at 21:00 Pantoprazole Sodium (Protonix) 20 mg DAILY PO Last administered on 11/12/16 08 :17; Start 11/12/16 at 09:00 Sodium Chloride (NS Flush) 2 ml UNSCH PRN .XX FLUSH AFTER USING IV ACCESS; Start 11/11/16 at 20:15 Sodium Chloride (NS Flush) 2 ml BID .XX Last administered on 11/12/16 08:18; Start 11/11/16 at 21:00 Acetaminophen (Tylenol) 650 mg Q6H PRN PO FEVER >101F; Start 11/11/16 at 20:15 Ondansetron HCl (Zofran Inj) 4 mg Q6H PRN IV NAUSEA OR VOMITING; Start at 20:15 Zolpidem Tartrate (Ambien) 5 mg HS PRN PO INSOMNIA; Start 11/11/16 at 20:15 Albuterol/ Ipratropium (Duoneb Neb) 1 ampule Q4HR NEB INH Last administered on 11/12/16 07:21; Start 11/12/16 at 00:00 Albuterol/ Ipratropium (Duoneb Neb) 1 ampule Q2HR NEB PRN INH WHEEZING Last administered on 11/11/16 22:11; Start 11/11/16 at 20:15 Heparin Sodium (Porcine) (Heparin Inj) 5,000 units Q8H SQ Last administered on 11/12/16 05:12; Start 11/11/16 at 22:00 Miscellaneous Information 1 Q361D XX Last administered on 11/11/16 20:15; Start 11/11/16 at 20:15 Chlorhexidine Gluconate (Chlorhexidine 2% Cloth) 3 pack Taper DAILY@04 TOP Last administered on 11/12/16 03:59; Start 11/12/16 at 04:00; Stop 11/08/17 at 03:59 Chlorhexidine Gluconate (Chlorhexidine 2% Cloth) 3 pack UNSCH PRN TOP HYGIENIC CARE; Start 11/11/16 at 20:15 Senna/Docusate Sodium ([place]-Colace) 1 tab BID PO Last administered on 08:16; Start 11/11/16 at 21:00 Magnesium Hydroxide (Milk Of Magnesia Liq) 30 ml Q12H PRN PO MILD - MODERATE CONSTIPATION Last administered on 11/12/16 08:17; Start 11/11/16 at 20:15 Sennosides (Senokot) 17.2 mg Q12H PRN PO MODERATE - SEVERE CONSTIPATION; Start 11/11/16 at 20:15 Bisacodyl (Dulcolax Supp) 10 mg DAILY PRN RECTAL SEVERE CONSITIPATION; Start at 20:15 Lactulose 30 ml 30 ml DAILY PRN PO SEVERE CONSITIPATION; Start 11/11/16 at 20: 15 Cefepime HCl 2000 mg/Sodium Chloride 100 ml @ 200 mls/hr Q8H IV Last administered on 11/12/16 05:12; Start 11/11/16 at 22:00 Azithromycin/ Sodium Chloride (Zithromax Inj/ NS 250 ml Inj) 250 ml @ 250 mls/ hr Q24H IV ; Start 11/12/16 at 16:00 Dextrose (D50w (Vial) Inj) 50 ml UNSCH PRN IV HYPOGLYCEMIA-SEE COMMENTS; Start 11/11/16 at 20:30 Glucagon (Glucagon Inj) 1 mg UNSCH PRN OTHER HYPOGLYCEMIA-SEE COMMENTS; Start 11/11/16 at 20:30 Insulin Aspart (NovoLOG SUPPLEMENTAL SCALE) 1 ACHS SLIDING SCALE SQ Last administered on 11/12/16 05:51; Start 11/11/16 at 21:00 Methylprednisolone Sodium Succinate (SoluMEDROL INJ) 60 mg Q12HR IV PUSH Last administered on 11/12/16 08:17; Start 11/11/16 at 21:00 A/P Assessment and Plan Acute Respiratory failure -Most likely secondary to end-stage COPD and sedation from narcotic use. -Will hold off on all sedating type medication. End-stage COPD exacerbation -Continue with BiPAP. Patient is on IV steroids and Rocephin/azithromycin. -Very poor prognosis. He should is on hospice but is full code. -Per nurse hospice already consulted and will discuss with patient his goals. Hypertension/history of CHF -Continue as per no lactone, Bumex, hydralazine, and isosorbide Diabetes mellitus -Blood sugars running in the mid 200s to lower 300s. -Continue with Lantus and insulin sliding scale. Will adjust accordingly. Constipation -Most likely secondary to narcotic use. -Continue bowel regimen. -Patient unable to complete a CT scan does due to sedation. -I do not suspect any bowel obstruction or perforation he is asymptomatic. Will get a KUB and determine if patient needs a CT scan of the abdomen done. JEFF - Nocturnal BiPAP GERD - Omeprazole DVT GI prophylaxis - Teds SCDs subcutaneous heparin - Omeprazole Discharge Planning Very poor prognosis. Patient is on hospice. Hospice consulted to determine patient's goal. At the moment will continue with aggressive management since he is a full code. Mey Leach MD Nov 12, 2016 09:09
[2016-11-12] MEDS ORDERED: DIATRIZOATE MEGLUM/DIATRIZOATE SOD 9 ML CUP PO ONE (10:00)
--- NOTE | 2016-11-12 10:29 | RADRPT ---
EXAM DATE/TIME: 11/12/2016 09:19 [facility] COMPARISON: No previous studies available for comparison. INDICATIONS : Constipation. MEDICAL HISTORY : Diabetes mellitus type II. Hypertension Congestive heart failure. Chronic SURGICAL HISTORY : None. ENCOUNTER: Initial ACUITY: 1 day PAIN SCORE: 6/10 LOCATION: Bilateral abdomen FINDINGS: Moderate stool is present throughout the colon without significant distention. There is no free air. CONCLUSION: Moderate stool throughout the colon. Mario Pablo MD FACR on November 12, 2016 at 10:26 Board Certified Radiologist. This report was verified electronically.
--- NOTE | 2016-11-12 14:43 | EKG ---
Date Performed: 11/11/2016 Time Performed: 15:11:14 PTAGE: 56 years EKG: Sinus tachycardia Vertical QRS [place] Small inferior Q waves of undetermined significance Com pared to prior tracing no significant change ABNORMAL RHYTHM ECG PREVIOUS TRACING : 09/12/2016 16.47 DOCTOR: Jozef Montes Interpretating Date/Time 11/12/2016 14:43:00
[2016-11-12] MEDS: AZITHROMYCIN INJ 500 MG in SODIUM CHLOR 0.9% 250 ML INJ 250 ML IV SCH (16:18)
--- NOTE | 2016-11-12 16:46 | MB ---
cc: MICHAEL GUZMAN DATE OF CONSULTATION: 11/12/2016. REASON FOR CONSULTATION: Respiratory failure. REQUESTING PHYSICIAN: Dr. Azevedo. HISTORY OF PRESENT ILLNESS: Mr. Guerra is a 56-year-old male who is known to me from previous admissions and from the office. He has a longstanding history of COPD and obstructive sleep apnea. He does not use any C-PAP machine. The patient came to the hospital with worsening of his shortness of breath. He was also complaining of abdominal bloating. He did not have any chest pain. No abdominal pain. He was hypoxic. He was worked up in the emergency room. His blood gas showed pH 7.29, pCO2 80, pO2 60. He was put on BiPAP 45%. Repeat blood gas showed pH 7.31, pC02 79, p02 of 97. His white blood cell count is 6.5, hemoglobin 9.2, hematocrit 32.2, MCV 64, platelet count 296,000. Sodium 133, potassium 4.6, chloride 89, carbon dioxide 39, BUN 21, creatinine 1.0. His chest x-ray shows bibasilar patchy area consistent with atelectasis and possible infiltrate. Abdominal x-rays show moderate stool throughout the colon. The patient is on BiPAP. He was initially on hospice, but his family wants him to be intubated if needed. Currently he is on BiPAP, opens eyes and tries to answer and he is waking up more now. PAST MEDICAL HISTORY: His past medical history is significant for: 1. History of COPD. 2. Obstructive sleep apnea. 3. Diabetes mellitus. 4. Hypertension. 5. Seizure disorder. 6. History of gastroesophageal reflux disease (GERD). MEDICATIONS: He is currently takin. Zithromax 500 milligrams a day. 2. Aspirin 81 milligrams a day. 3. Wellbutrin 100 milligrams a day. 4. Folic acid 1 milligram a day. 6. Imdur 30 milligrams a day. 7. Protonix 20 milligrams a day. 8. Heparin 5000 q. 8 hours. 9. Cefepime 1 gram q. 8 hours. 10. Bumex 2 milligrams twice a day. 11. Insulin 80 units twice a day. 12. Symbicort two puffs twice a day. 13. Solu-Medrol 60 milligrams q. 12 hours. 14. Lorazepam as needed. 15. Morphine as needed. ALLERGIES: NO KNOWN DRUG ALLERGIES. SOCIAL HISTORY: History of smoking in the past. FAMILY HISTORY: Noncontributory. REVIEW OF SYSTEMS: The patient uses oxygen, has not been using any C-PAP machine, has history of smoking. No seizure, stroke or epilepsy. He has history of seizure, no stroke. PHYSICAL EXAMINATION: GENERAL: Well-built, well-nourished male tired and lethargic but opens his eyes. He follows commands and squeezes hands. VITAL SIGNS: His blood pressure is 138/74, heart rate 146, respirations 18, temperature 97.5. HEAD, EYES, EARS, NOSE, THROAT: Pupils are equal and reactive. Oral mucosa and nasal mucosa are normal. NECK: The neck is supple. JVP not raised. CHEST: Air entry equal bilaterally. He has a few rhonchi. CARDIOVASCULAR: S1-S2 normal. ABDOMEN: Abdomen benign. EXTREMITIES: 1+ pedal edema. IMPRESSION: 1. Hypercapnic respiratory failure. 2. COPD with mild exacerbation. 3. Obstructive sleep apnea. 4. Diabetes mellitus. 5. Hypertension. 6. History of seizure disorder. PLAN: 1. Will maintain him on BiPAP and he seems to be improving with it. If his condition gets worse or more obtunded, then we will consider intubation. 2. The patient is on the hospice service and the family is considering to rescind it. 3. Continue IV Solu-Medrol, aerosol treatment, Symbicort twice a day. 4. Monitor his blood sugar and electrolytes. Further treatment will depend on the course in the hospital. Thank you, Dr. Azevedo, for this consultation. MD MARTY Tucker/JCC /3:33 PM /4:24 PM LILIAN
[2016-11-12 21:10] LABS: MEAN CORPUSCULAR HGB CONC 28.7 % (32.0-36.0)
[2016-11-13] VITALS (23 sets, daily range): BP systolic 114–154; BP diastolic 60–79; PULSE 92–116; RESP 16–22; TEMP 97.6–98.8; O2SAT 88–96
[2016-11-13] MEDS: RESP: ALBUTEROL 2.5 MG/IPRATROPIUM 0.5 MG NEB (SCH) INH ×7 (00:51→23:41)
[2016-11-13] MEDS: LORazepam 1 MG TAB PO PRN (01:40)
[2016-11-13] MEDS: CHLORHEXIDINE GLUCONATE 2 % 1 PACK (2 CLOTHS) TOP SCH (04:00)
[2016-11-13] MEDS: CEFEPIME INJ 2,000 MG in SODIUM CHLORIDE 0.9% INJ 100 ML IV SCH ×3 (05:51→22:27)
[2016-11-13] MEDS: HEPARIN SODIUM - SQ 10,000 UNITS/ML VIAL SQ SCH ×3 (05:51→22:25)
[2016-11-13] MEDS: INSULIN ASPART SUPPLEMENTAL SCALE SQ SCH ×4 (05:52→21:06)
[2016-11-13 06:42] LABS: MEAN CELL VOLUME 64.6 FL (80.0-100.0); MEAN CORPUSCULAR HEMOGLOBIN 18.6 PG (27.0-34.0); PLATELET COUNT 294 TH/MM3 (150-450); RED CELL DISTRIBUTION WIDTH 20.2 % (11.6-17.2); REVIEW FLAG FINAL; WHITE BLOOD COUNT 10.5 TH/MM3 (4.0-11.0)
[2016-11-13 06:55] LABS: BICARBONATE 41.2 MEQ/L (21.0-32.0)
--- NOTE | 2016-11-13 07:47 | HHI.FPPN ---
Subjective Remarks c/o sputum c/o harsh cough d/w RN pt wants to dc [facility] Objective Vitals Vital Signs Date Time Temp Pulse Resp B/P Pulse Ox O2 Delivery O2 Flow Rate FiO2 11/13/16 07:32 98.8 99 21 121/70 96 11/13/16 07:32 96 Bi-Pap 45 11/13/16 07:30 96 45 11/13/16 07:00 98 11/13/16 03:58 94 45 11/13/16 03:13 95 Nasal Cannula 45 Bi-Pap 11/13/16 03:13 102 11/13/16 03:13 98.2 103 17 114/60 95 11/13/16 01:48 94 45 11/12/16 23:18 93 Nasal Cannula 5.00 11/12/16 23:18 98.0 110 20 130/65 93 11/12/16 23:18 110 11/12/16 22:30 94 Nasal Cannula 5.00 11/12/16 19:21 98.8 108 20 136/57 95 11/12/16 19:21 93 Nasal Cannula 5.00 11/12/16 19:00 108 11/12/16 18:00 94 Bi-Pap 45 11/12/16 18:00 109 11/12/16 17:50 92 Nasal Cannula 6.00 11/12/16 17:30 95 45 11/12/16 15:00 99.0 107 18 141/68 94 11/12/16 12:03 92 45 11/12/16 11:00 97.5 111 18 138/74 96 11/12/16 11:00 96 Bi-Pap 45 11/12/16 11:00 106 11/12/16 09:16 93 I/O 11/12/16 11/12/16 11/12/16 11/13/16 11/13/16 11/13/16 06:59 14:59 22:59 06:59 14:59 22:59 Intake Total 568 ml 1310 ml 820 ml Output Total 2300 ml 1675 ml 1775 ml Balance -1732 ml -365 ml -955 ml Intake Oral 480 ml 960 ml 720 ml IV Total 88 ml 350 ml 100 ml Output Urine Total 2300 ml 1675 ml 1775 ml # Voids 1 # Bowel Movements 0 0 0 Result Diagram: 11/13/16 0553 11/13/16 0553 Objective Remarks GENERAL: SKIN: Warm and dry. HEAD: Atraumatic. Normocephalic. EYES: Pupils equal and round. No scleral icterus. No injection or drainage. ENT: No nasal bleeding or discharge. Mucous membranes pink and moist. NECK: Trachea midline. No JVD. CARDIOVASCULAR: Regular rate and rhythm. RESPIRATORY: b R/R, CONSOL B LOWER LOBES HARSH PROD COUGH GASTROINTESTINAL: Abdomen soft, non-tender, nondistended. Hepatic and splenic margins not palpable. MUSCULOSKELETAL: Extremities 2 + edema. No obvious deformities. NEUROLOGICAL: Awake and alert. No obvious cranial nerve deficits. Motor grossly within normal limits. 2 out of 5 muscle strength in the arms and legs. Normal speech. PSYCHIATRIC: Appropriate mood and affect; insight and judgment normal. Medications and IVs Current Medications Medications (Trade) Dose Ordered Sig/Whit Route Start Time Stop Time Status Last Admin (Narcan Inj/D5W Inj) 250 ml @ 0 mls/hr TITRATE IV 11/11/16 17:45 11/11/16 18:01 (Ecotrin Ec) 81 mg DAILY PO 11/12/16 09:00 11/13/16 09:30 (Bumetanide) 2 mg BID PO 11/11/16 21:00 11/13/16 09:29 (Wellbutrin) 100 mg DAILY PO 11/12/16 09:00 11/13/16 09:29 (Folate) 1 mg DAILY PO 11/12/16 09:00 11/13/16 09:29 (Apresoline) 25 mg TID PO 11/12/16 09:00 11/13/16 09:30 ([place] 10-325 Mg) 1 tab Q4H PRN PO 11/11/16 20:15 11/13/16 09:30 (Levemir Inj) 80 units BID SQ 11/11/16 21:00 11/13/16 09:32 (Imdur) 30 mg DAILY PO 11/12/16 09:00 11/13/16 09:29 (Ativan) 0.5 mg Q4H PRN PO 11/11/16 20:15 (Ativan) 1 mg Q4H PRN PO 11/11/16 20:15 11/13/16 01:40 (Roxanol Liq) 5 mg Q4H PRN PO 11/11/16 20:15 (Roxanol Liq) 10 mg Q4H PRN PO 11/11/16 20:15 (Aldactone) 100 mg BID PO 11/11/16 21:00 11/13/16 09:30 (Symbicort 160-4.5 Inh) 1 puff BID INH 11/11/16 21:00 11/13/16 09:36 (Protonix) 20 mg DAILY PO 11/12/16 09:00 11/13/16 09:29 (NS Flush) 2 ml UNSCH PRN .XX 11/11/16 20:15 (NS Flush) 2 ml BID .XX 11/11/16 21:00 11/13/16 09:00 (Tylenol) 650 mg Q6H PRN PO 11/11/16 20:15 (Zofran Inj) 4 mg Q6H PRN IV 11/11/16 20:15 (Ambien) 5 mg HS PRN PO 11/11/16 20:15 (Heparin Inj) 5,000 units Q8H SQ 11/11/16 22:00 11/13/16 05:51 Miscellaneous Information 1 Q361D XX 11/11/16 20:15 11/11/16 20:15 (Chlorhexidine 2% Cloth) 3 pack Taper DAILY@04 TOP 11/12/16 04:00 11/08/17 03:59 11/13/16 04:00 (Chlorhexidine 2% Cloth) 3 pack UNSCH PRN TOP 11/11/16 20:15 (Amira-Colace) 1 tab BID PO 11/11/16 21:00 11/13/16 09:29 (Milk Of Magnesia Liq) 30 ml Q12H PRN PO 11/11/16 20:15 11/12/16 08:17 (Senokot) 17.2 mg Q12H PRN PO 11/11/16 20:15 (Dulcolax Supp) 10 mg DAILY PRN RECTAL 11/11/16 20:15 Lactulose 30 ml 30 ml DAILY PRN PO 11/11/16 20:15 11/13/16 09:41 Cefepime HCl 2000 mg/Sodium Chloride 100 ml @ 200 mls/hr Q8H IV 11/11/16 22:00 11/13/16 05:51 (Zithromax Inj/ NS 250 ml Inj) 250 ml @ 250 mls/hr Q24H IV 11/12/16 16:00 11/12/16 16:18 (D50w (Vial) Inj) 50 ml UNSCH PRN IV 11/11/16 20:30 (Glucagon Inj) 1 mg UNSCH PRN OTHER 11/11/16 20:30 (SoluMEDROL INJ) 60 mg Q12HR IV PUSH 11/11/16 21:00 11/13/16 09:30 A/P Assessment and Plan Acute Respiratory failure -Most likely secondary to end-stage COPD and sedation from narcotic use. -Will hold off on all sedating type medication. HCAP: IV ABX. End-stage COPD exacerbation -Continue with BiPAP. Patient is on IV steroids and Rocephin/azithromycin. -Very poor prognosis. He should is on hospice but is full code. Hypertension/history of CHF -Continue Bumex, hydralazine, and isosorbide Diabetes mellitus -Blood sugars running in the mid 200s to lower 300s. -Continue with Lantus and insulin sliding scale. Will adjust accordingly. Constipation -Most likely secondary to narcotic use. -Continue bowel regimen. -Patient unable to complete a CT scan does due to sedation. -I do not suspect any bowel obstruction or perforation he is asymptomatic. - KUB JEFF - Nocturnal BiPAP GERD - Omeprazole DVT GI prophylaxis - Teds SCDs subcutaneous heparin - Omeprazole Discharge Planning- Very poor prognosis. Patient is on hospice. Hospice consulted to determine patient's goal. At the moment will continue with aggressive management since he is a full code. Jozef Gilliland MD Nov 13, 2016 07:47
[2016-11-13] MEDS: SODIUM CHLORIDE 0.9% FLUSH 10 ML FLUSH SCH ×2 (09:00→21:23)
[2016-11-13] MEDS: PANTOPRAZOLE SOD 20 MG DELAYED RELEASE TAB PO SCH (09:29)
[2016-11-13] MEDS: FOLIC ACID 1 MG TAB PO SCH (09:29)
[2016-11-13] MEDS: ISOSORBIDE MONONITRATE 30 MG TAB PO SCH (09:29)
[2016-11-13] MEDS: DOCUSATE SODIUM 50 MG/SENNA 8.6 MG TAB PO SCH ×2 (09:29→21:21)
[2016-11-13] MEDS: BUMETANIDE 1 MG TAB PO SCH ×2 (09:29→21:21)
[2016-11-13] MEDS: buPROPion HCL 100 MG TAB PO SCH (09:29)
[2016-11-13] MEDS: ACETAMINOPHEN/HYDROcodone 325 MG/10 MG TAB PO PRN ×3 (09:30→20:38)
[2016-11-13] MEDS: hydrALAZINE HCL 25 MG TAB PO SCH ×3 (09:30→18:00)
[2016-11-13] MEDS: methylPREDNISolone SOD SUCC 125 MG/2 ML VIAL IV PUSH SCH ×2 (09:30→21:22)
[2016-11-13] MEDS: ASPIRIN EC 81 MG TABEC PO SCH (09:30)
[2016-11-13] MEDS: SPIRONOLACTONE 100 MG TAB PO SCH ×2 (09:30→21:21)
[2016-11-13] MEDS: INSULIN DETEMIR 100 UNITS/ML VIAL SQ SCH ×2 (09:32→21:23)
[2016-11-13] MEDS: BUDESONIDE-FORMOTEROL 160/4.5 MCG INHALER INH SCH ×2 (09:36→21:24)
[2016-11-13] MEDS: AZITHROMYCIN INJ 500 MG in SODIUM CHLOR 0.9% 250 ML INJ 250 ML IV SCH (17:01)
--- NOTE | 2016-11-13 17:09 | HHI.PR ---
Subjective Remarks 56 YOWM with COPD exac, RF,DM used CPAP, feels better Up in chair Alert, awake, follows commands Objective Vital Signs Vital Signs Date Time Temp Pulse Resp B/P Pulse Ox O2 Delivery O2 Flow Rate FiO2 11/13/16 16:01 102 11/13/16 15:15 92 Nasal Cannula 3.00 11/13/16 15:15 98.4 99 22 154/78 91 11/13/16 15:00 106 11/13/16 14:00 116 11/13/16 13:01 106 11/13/16 12:00 92 11/13/16 11:01 92 Nasal Cannula 3.00 11/13/16 11:01 98.7 99 22 130/73 92 11/13/16 11:00 102 11/13/16 08:48 94 Nasal Cannula 4.00 11/13/16 07:32 98.8 99 21 121/70 96 11/13/16 07:32 96 Bi-Pap 45 11/13/16 07:30 96 45 11/13/16 07:00 98 11/13/16 03:58 94 45 11/13/16 03:13 95 Nasal Cannula 45 Bi-Pap 11/13/16 03:13 102 11/13/16 03:13 98.2 103 17 114/60 95 11/13/16 01:48 94 45 11/12/16 23:18 93 Nasal Cannula 5.00 11/12/16 23:18 98.0 110 20 130/65 93 11/12/16 23:18 110 11/12/16 22:30 94 Nasal Cannula 5.00 11/12/16 19:21 98.8 108 20 136/57 95 11/12/16 19:21 93 Nasal Cannula 5.00 11/12/16 19:00 108 11/12/16 18:00 94 Bi-Pap 45 11/12/16 18:00 109 11/12/16 17:50 92 Nasal Cannula 6.00 11/12/16 17:30 95 45 I/O 11/12/16 11/12/16 11/12/16 11/13/16 11/13/16 11/13/16 06:59 14:59 22:59 06:59 14:59 22:59 Intake Total 568 ml 1310 ml 820 ml Output Total 2300 ml 1675 ml 1775 ml Balance -1732 ml -365 ml -955 ml Intake Oral 480 ml 960 ml 720 ml IV Total 88 ml 350 ml 100 ml Output Urine Total 2300 ml 1675 ml 1775 ml # Voids 1 # Bowel Movements 0 0 0 Result Diagram: 11/13/1653 11/13/1653 Objective Remarks GENERAL: WBWN WM, mild sob SKIN: Warm and dry. HEAD: Normocephalic. EYES: No scleral icterus. No injection or drainage. NECK: Supple, trachea midline. No JVD or lymphadenopathy. CARDIOVASCULAR: Regular rate and rhythm without murmurs, gallops, or rubs. RESPIRATORY: Breath sounds equal bilaterally. No accessory muscle use. GASTROINTESTINAL: Abdomen soft, non-tender, nondistended. MUSCULOSKELETAL: No cyanosis, or edema. BACK: Nontender without obvious deformity. No CVA tenderness. A/P Assessment and Plan Hypercapnoic RF, improved COPD exac JEFF DM HTN Sz disorder PLAN: Aerosol nebs supplement 02 to keep sat 88-92% IV Solumedrol Cont Abx Monitor BS Will benefit with Trilogy at home due to high C02, Ch RF Ankit Morel MD Nov 13, 2016 17:09
[2016-11-13] MEDS: MAGNESIUM HYDROXIDE SUSP 30 ML CUP PO PRN (17:17)
[2016-11-14] VITALS (26 sets, daily range): BP systolic 131–159; BP diastolic 74–76; PULSE 85–112; RESP 18–20; TEMP 97.7–98.6; O2SAT 88–95
[2016-11-14] MEDS: ACETAMINOPHEN/HYDROcodone 325 MG/10 MG TAB PO PRN ×5 (00:27→20:08)
[2016-11-14] MEDS: RESP: ALBUTEROL 2.5 MG/IPRATROPIUM 0.5 MG NEB (SCH) INH ×6 (03:43→23:32)
[2016-11-14] MEDS: CHLORHEXIDINE GLUCONATE 2 % 1 PACK (2 CLOTHS) TOP SCH (04:00)
[2016-11-14] MEDS: HEPARIN SODIUM - SQ 10,000 UNITS/ML VIAL SQ SCH ×3 (06:22→21:39)
[2016-11-14] MEDS: CEFEPIME INJ 2,000 MG in SODIUM CHLORIDE 0.9% INJ 100 ML IV SCH ×3 (06:23→21:39)
[2016-11-14] MEDS: INSULIN ASPART SUPPLEMENTAL SCALE SQ SCH ×4 (06:24→20:14)
[2016-11-14] MEDS: ISOSORBIDE MONONITRATE 30 MG TAB PO SCH (09:09)
[2016-11-14] MEDS: SPIRONOLACTONE 100 MG TAB PO SCH ×2 (09:09→20:09)
[2016-11-14] MEDS: PANTOPRAZOLE SOD 20 MG DELAYED RELEASE TAB PO SCH (09:09)
[2016-11-14] MEDS: buPROPion HCL 100 MG TAB PO SCH (09:09)
[2016-11-14] MEDS: FOLIC ACID 1 MG TAB PO SCH (09:09)
[2016-11-14] MEDS: ASPIRIN EC 81 MG TABEC PO SCH (09:09)
[2016-11-14] MEDS: DOCUSATE SODIUM 50 MG/SENNA 8.6 MG TAB PO SCH ×2 (09:10→20:08)
[2016-11-14] MEDS: BUMETANIDE 1 MG TAB PO SCH ×2 (09:10→20:08)
[2016-11-14] MEDS: SODIUM CHLORIDE 0.9% FLUSH 10 ML FLUSH SCH ×2 (09:10→20:09)
[2016-11-14] MEDS: hydrALAZINE HCL 25 MG TAB PO SCH ×3 (09:10→17:09)
[2016-11-14] MEDS: methylPREDNISolone SOD SUCC 125 MG/2 ML VIAL IV PUSH SCH (09:11)
[2016-11-14] MEDS: BUDESONIDE-FORMOTEROL 160/4.5 MCG INHALER INH SCH ×2 (09:11→20:09)
[2016-11-14] MEDS: INSULIN DETEMIR 100 UNITS/ML VIAL SQ SCH ×2 (09:16→20:13)
--- NOTE | 2016-11-14 10:08 | HHI.FPPN ---
Subjective Remarks CALLED W SEV HYPERGLYCEMIA PT C/O SPUTUM AND COUGH W [facility] AGITATED REQUESTS DC SOON WANTS OFF HOSPICE D/W RN Objective Vitals Vital Signs Date Time Temp Pulse Resp B/P Pulse Ox O2 Delivery O2 Flow Rate FiO2 11/14/16 09:17 20 11/14/16 07:42 92 Nasal Cannula 2.00 11/14/16 06:00 90 11/14/16 05:00 106 11/14/16 04:00 102 11/14/16 03:00 2 Nasal Cannula 2.00 11/14/16 03:00 102 11/14/16 03:00 98.0 104 20 139/74 91 11/14/16 02:00 100 11/14/16 01:00 100 11/14/16 00:00 102 11/13/16 23:00 97.6 100 16 142/73 89 11/13/16 23:00 104 11/13/16 23:00 89 Nasal Cannula 2.00 11/13/16 22:00 104 11/13/16 21:00 108 11/13/16 20:41 88 Nasal Cannula 2.00 11/13/16 20:00 88 Nasal Cannula 2.00 11/13/16 20:00 97.9 107 20 142/79 88 11/13/16 20:00 104 11/13/16 19:00 112 11/13/16 18:01 110 11/13/16 17:00 100 11/13/16 16:01 102 11/13/16 15:15 92 Nasal Cannula 3.00 11/13/16 15:15 98.4 99 22 154/78 91 11/13/16 15:00 106 11/13/16 14:00 116 11/13/16 13:01 106 11/13/16 12:00 92 11/13/16 11:01 92 Nasal Cannula 3.00 11/13/16 11:01 98.7 99 22 130/73 92 11/13/16 11:00 102 I/O 11/13/16 11/13/16 11/13/16 11/14/16 11/14/16 11/14/16 06:59 14:59 22:59 06:59 14:59 22:59 Intake Total 820 ml 1790 ml 340 ml Output Total 1775 ml 2150 ml 2700 ml Balance -955 ml -360 ml -2360 ml Intake Oral 720 ml 1440 ml 240 ml IV Total 100 ml 350 ml 100 ml Output Urine Total 1775 ml 2150 ml 2700 ml # Bowel Movements 0 0 Result Diagram: 11/13/16 0553 11/13/16 2100 Objective Remarks GENERAL: SKIN: Warm and dry. HEAD: Atraumatic. Normocephalic. EYES: Pupils equal and round. No scleral icterus. No injection or drainage. ENT: No nasal bleeding or discharge. Mucous membranes pink and moist. NECK: Trachea midline. No JVD. CARDIOVASCULAR: Regular rate and rhythm. RESPIRATORY: b R/R, CONSOL B LOWER LOBES HARSH PROD COUGH GASTROINTESTINAL: Abdomen soft, non-tender, nondistended. Hepatic and splenic margins not palpable. MUSCULOSKELETAL: Extremities 2 + edema. No obvious deformities. NEUROLOGICAL: Awake and alert. No obvious cranial nerve deficits. Motor grossly within normal limits. 2 out of 5 muscle strength in the arms and legs. Normal speech. PSYCHIATRIC: Appropriate mood and affect; insight and judgment normal. Medications and IVs Current Medications Medications (Trade) Dose Ordered Sig/Whit Route Start Time Stop Time Status Last Admin (Narcan Inj/D5W Inj) 250 ml @ 0 mls/hr TITRATE IV 11/11/16 17:45 11/11/16 18:01 (Ecotrin Ec) 81 mg DAILY PO 11/12/16 09:00 11/14/16 09:09 (Bumetanide) 2 mg BID PO 11/11/16 21:00 11/14/16 09:10 (Wellbutrin) 100 mg DAILY PO 11/12/16 09:00 11/14/16 09:09 (Folate) 1 mg DAILY PO 11/12/16 09:00 11/14/16 09:09 (Apresoline) 25 mg TID PO 11/12/16 09:00 11/14/16 09:10 (Mobile 10-325 Mg) 1 tab Q4H PRN PO 11/11/16 20:15 11/14/16 08:01 (Levemir Inj) 80 units BID SQ 11/11/16 21:00 11/14/16 09:16 (Imdur) 30 mg DAILY PO 11/12/16 09:00 11/14/16 09:09 (Ativan) 0.5 mg Q4H PRN PO 11/11/16 20:15 11/14/16 01:20 (Ativan) 1 mg Q4H PRN PO 11/11/16 20:15 11/13/16 01:40 (Roxanol Liq) 5 mg Q4H PRN PO 11/11/16 20:15 (Roxanol Liq) 10 mg Q4H PRN PO 11/11/16 20:15 (Aldactone) 100 mg BID PO 11/11/16 21:00 11/14/16 09:09 (Symbicort 160-4.5 Inh) 1 puff BID INH 11/11/16 21:00 11/14/16 09:11 (Protonix) 20 mg DAILY PO 11/12/16 09:00 11/14/16 09:09 (NS Flush) 2 ml UNSCH PRN .XX 11/11/16 20:15 (NS Flush) 2 ml BID .XX 11/11/16 21:00 11/14/16 09:10 (Tylenol) 650 mg Q6H PRN PO 11/11/16 20:15 (Zofran Inj) 4 mg Q6H PRN IV 11/11/16 20:15 (Ambien) 5 mg HS PRN PO 11/11/16 20:15 (Heparin Inj) 5,000 units Q8H SQ 11/11/16 22:00 11/14/16 06:22 Miscellaneous Information 1 Q361D XX 11/11/16 20:15 11/11/16 20:15 (Chlorhexidine 2% Cloth) 3 pack Taper DAILY@04 TOP 11/12/16 04:00 11/08/17 03:59 11/13/16 04:00 (Chlorhexidine 2% Cloth) 3 pack UNSCH PRN TOP 11/11/16 20:15 (Amira-Colace) 1 tab BID PO 11/11/16 21:00 11/14/16 09:10 (Milk Of Magnesia Liq) 30 ml Q12H PRN PO 11/11/16 20:15 11/13/16 17:17 (Senokot) 17.2 mg Q12H PRN PO 11/11/16 20:15 11/13/16 22:32 (Dulcolax Supp) 10 mg DAILY PRN RECTAL 11/11/16 20:15 Lactulose 30 ml 30 ml DAILY PRN PO 11/11/16 20:15 11/13/16 09:41 Cefepime HCl 2000 mg/Sodium Chloride 100 ml @ 200 mls/hr Q8H IV 11/11/16 22:00 11/14/16 06:23 (Zithromax Inj/ NS 250 ml Inj) 250 ml @ 250 mls/hr Q24H IV 11/12/16 16:00 11/13/16 17:01 (D50w (Vial) Inj) 50 ml UNSCH PRN IV 11/11/16 20:30 (Glucagon Inj) 1 mg UNSCH PRN OTHER 11/11/16 20:30 (SoluMEDROL INJ) 60 mg Q12HR IV PUSH 11/11/16 21:00 11/14/16 09:11 A/P Assessment and Plan Acute Respiratory failure -Most likely secondary to end-stage COPD and sedation from narcotic use. -Will hold off on all sedating type medication. HCAP: IV ABX. End-stage COPD exacerbation -Continue with BiPAP. Patient is on IV steroids and Rocephin/azithromycin. -Very poor prognosis. He should is on hospice but is full code. Hypertension/history of CHF -Continue Bumex, hydralazine, and isosorbide Diabetes mellitus -Blood sugars running in the mid 200s to lower 300s. -Continue with Lantus and insulin sliding scale. Will adjust accordingly. Constipation -Most likely secondary to narcotic use. -Continue bowel regimen. -Patient unable to complete a CT scan does due to sedation. -I do not suspect any bowel obstruction or perforation he is asymptomatic. - KUB JEFF - Nocturnal BiPAP GERD - Omeprazole DVT GI prophylaxis - Teds SCDs subcutaneous heparin - Omeprazole Discharge Planning- Very poor prognosis. Patient is on hospice. Hospice consulted to determine patient's goal. At the moment will continue with aggressive management since he is a full code. Jozef Gilliland MD Nov 14, 2016 10:08
[2016-11-14 12:30] LABS: CRITICAL VALUE YES
[2016-11-14] MEDS: AZITHROMYCIN INJ 500 MG in SODIUM CHLOR 0.9% 250 ML INJ 250 ML IV SCH (15:28)
--- NOTE | 2016-11-14 19:38 | HHI.PR ---
Subjective Remarks 56 YOWM with COPD exac, RF,DM Up in chair Alert, awake, follows commands Anxious to go home Did't use CPAP last night Objective Vital Signs Vital Signs Date Time Temp Pulse Resp B/P Pulse Ox O2 Delivery O2 Flow Rate FiO2 11/14/16 18:04 102 11/14/16 17:01 109 11/14/16 16:26 18 11/14/16 16:14 108 11/14/16 15:16 91 Nasal Cannula 2.00 11/14/16 15:16 98 11/14/16 15:16 97.7 112 20 159/76 91 11/14/16 14:20 108 11/14/16 13:35 106 11/14/16 12:05 111 11/14/16 11:46 98.6 103 20 146/75 88 11/14/16 11:46 102 11/14/16 11:46 88 Nasal Cannula 2.00 11/14/16 10:23 100 11/14/16 09:00 102 11/14/16 08:00 101 11/14/16 08:00 98.5 85 20 131/74 92 11/14/16 08:00 92 Nasal Cannula 2.00 11/14/16 07:42 92 Nasal Cannula 2.00 11/14/16 06:00 90 11/14/16 05:00 106 11/14/16 04:00 102 11/14/16 03:00 2 Nasal Cannula 2.00 11/14/16 03:00 102 11/14/16 03:00 98.0 104 20 139/74 91 11/14/16 02:00 100 11/14/16 01:00 100 11/14/16 00:00 102 11/13/16 23:00 97.6 100 16 142/73 89 11/13/16 23:00 104 11/13/16 23:00 89 Nasal Cannula 2.00 11/13/16 22:00 104 11/13/16 21:00 108 11/13/16 20:41 88 Nasal Cannula 2.00 11/13/16 20:00 88 Nasal Cannula 2.00 11/13/16 20:00 97.9 107 20 142/79 88 11/13/16 20:00 104 I/O 11/13/16 11/13/16 11/13/16 11/14/16 11/14/1617 06:59 14:59 22:59 06:59 14:59 22:59 Intake Total 820 ml 1790 ml 340 ml 1600 ml Output Total 1775 ml 2150 ml 2700 ml 2350 ml Balance -955 ml -360 ml -2360 ml -750 ml Intake Oral 720 ml 1440 ml 240 ml 1200 ml IV Total 100 ml 350 ml 100 ml 400 ml Output Urine Total 1775 ml 2150 ml 2700 ml 2350 ml # Bowel Movements 0 0 2 Result Diagram: 11/13/16 0553 11/13/16 2100 Objective Remarks GENERAL: WBWN WM, mild sob SKIN: Warm and dry. HEAD: Normocephalic. EYES: No scleral icterus. No injection or drainage. NECK: Supple, trachea midline. No JVD or lymphadenopathy. CARDIOVASCULAR: Regular rate and rhythm without murmurs, gallops, or rubs. RESPIRATORY: Breath sounds equal bilaterally. No accessory muscle use. GASTROINTESTINAL: Abdomen soft, non-tender, nondistended. MUSCULOSKELETAL: No cyanosis, or edema. BACK: Nontender without obvious deformity. No CVA tenderness. A/P Assessment and Plan Hypercapnoic RF, improved COPD exac JEFF DM HTN Sz disorder PLAN: Aerosol nebs supplement 02 to keep sat 88-92% Cont Abx Monitor BS Will benefit with Trilogy at home due to high C02, Ch RF DC Solumedrol PO Prednisone. Ankit Morel MD Nov 14, 2016 19:38
[2016-11-15] VITALS (15 sets, daily range): BP systolic 139–154; BP diastolic 69–87; PULSE 54–112; TEMP 97.9–98.7; O2SAT 91–94
[2016-11-15] MEDS: ACETAMINOPHEN/HYDROcodone 325 MG/10 MG TAB PO PRN ×3 (00:01→07:52)
[2016-11-15] MEDS: CHLORHEXIDINE GLUCONATE 2 % 1 PACK (2 CLOTHS) TOP SCH (04:00)
[2016-11-15] MEDS: RESP: ALBUTEROL 2.5 MG/IPRATROPIUM 0.5 MG NEB (SCH) INH ×3 (04:03→11:15)
[2016-11-15] MEDS: HEPARIN SODIUM - SQ 10,000 UNITS/ML VIAL SQ SCH (05:24)
[2016-11-15] MEDS: CEFEPIME INJ 2,000 MG in SODIUM CHLORIDE 0.9% INJ 100 ML IV SCH (05:25)
[2016-11-15] MEDS: INSULIN ASPART SUPPLEMENTAL SCALE SQ SCH (06:02)
[2016-11-15] MEDS: ASPIRIN EC 81 MG TABEC PO SCH (07:44)
[2016-11-15] MEDS: ISOSORBIDE MONONITRATE 30 MG TAB PO SCH (07:44)
[2016-11-15] MEDS: PANTOPRAZOLE SOD 20 MG DELAYED RELEASE TAB PO SCH (07:44)
[2016-11-15] MEDS: BUMETANIDE 1 MG TAB PO SCH (07:44)
[2016-11-15] MEDS: FOLIC ACID 1 MG TAB PO SCH (07:44)
[2016-11-15] MEDS: DOCUSATE SODIUM 50 MG/SENNA 8.6 MG TAB PO SCH (07:45)
[2016-11-15] MEDS: SPIRONOLACTONE 100 MG TAB PO SCH (07:45)
[2016-11-15] MEDS: SODIUM CHLORIDE 0.9% FLUSH 10 ML FLUSH SCH (07:45)
[2016-11-15] MEDS: hydrALAZINE HCL 25 MG TAB PO SCH (07:45)
[2016-11-15] MEDS: buPROPion HCL 100 MG TAB PO SCH (07:45)
[2016-11-15] MEDS: BUDESONIDE-FORMOTEROL 160/4.5 MCG INHALER INH SCH (07:46)
[2016-11-15] MEDS: INSULIN DETEMIR 100 UNITS/ML VIAL SQ SCH (07:50)
[2016-11-15] MEDS ORDERED: predniSONE 10 MG TAB PO SCH (09:00)
[2016-11-15] MEDS ORDERED: OXYGENTANK NAS.CANULA (09:16)
[2016-11-15] MEDS ORDERED: OXYGENDME NAS.CANULA (09:16)
--- NOTE | 2016-11-15 09:16 | HHI.DCPOC ---
Discharge Care Plan Diagnosis: (1) Dyspnea (2) Edema (3) Chronic airway obstruction, not elsewhere classified (4) Esophageal reflux (5) Constipation (6) Insomnia (7) Respiratory distress (8) Hypertension (9) Obesity (10) Sleep apnea (11) Chronic pain (12) Pain (13) Type 2 diabetes mellitus (14) History of congestive heart failure (15) COPD with exacerbation (16) Encounter for smoking cessation counseling Goals to Promote Your Health * To prevent worsening of your condition and complications * To maintain your health at the optimal level Directions to Meet Your Goals Take your medications as prescribed Follow your dietary instruction Follow activity as directed Keep your appointments as scheduled Take your immunizations and boosters as scheduled If your symptoms worsen call your PCP, if no PCP go to Urgent Care Center or Emergency Room Smoking is Dangerous to Your Health. Avoid second hand smoke Call the 24-hour hour crisis hotline for domestic abuse at Jozef Gilliland MD Nov 15, 2016 09:16
--- NOTE | 2016-11-15 09:18 | HHI.DS ---
Discharge Summary Admission Date Nov 11, 2016 at 17:49 Discharge Date: Nov 15, 2016 Admitting Diagnosis Hypercarbic Resp Failure; CHF (1) Depression (2) Nutrition, metabolism, and development symptoms (3) Hyponatremia (4) Anasarca (5) Hypercarbia (6) Tachycardia (7) Tobacco abuse (8) Encephalopathy (9) GERD (gastroesophageal reflux disease) (10) Chest pain (11) Heart failure with reduced ejection fraction (12) Essential hypertension (13) Dysphagia (14) Emphysema lung (15) Seizure disorder (16) Chronic obstructive airway disease (17) CHF (congestive heart failure) (18) Sleep apnea CBC/BMP: 11/13/16 0553 11/13/16 2100 Significant Findings Laboratory Tests Test 11/13/16 11/13/16 05:53 21:00 Hemoglobin 8.9 GM/DL (13.0-17.0) Hematocrit 31.0 % (39.0-51.0) Mean Corpuscular Volume 64.6 FL (80.0-100.0) Mean Corpuscular Hemoglobin 18.6 PG (27.0-34.0) Mean Corpuscular Hemoglobin 28.7 % Concent (32.0-36.0) Red Cell Distribution Width 20.2 % (11.6-17.2) Chloride Level 91 MEQ/L (98-107) Carbon Dioxide Level 41.2 MEQ/L (21.0-32.0) Anion Gap 4 MEQ/L (5-15) Blood Urea Nitrogen 27 MG/DL (7-18) Estimat Glomerular Filtration 86 ML/MIN (>89) Rate Random Glucose 274 MG/DL 459 MG/DL (74-106) (74-106) PE at Discharge GENERAL: SKIN: Warm and dry. HEAD: Atraumatic. Normocephalic. EYES: Pupils equal and round. No scleral icterus. No injection or drainage. ENT: No nasal bleeding or discharge. Mucous membranes pink and moist. NECK: Trachea midline. No JVD. CARDIOVASCULAR: Regular rate and rhythm. RESPIRATORY: No accessory muscle use. Clear to auscultation. Breath sounds equal bilaterally. GASTROINTESTINAL: Abdomen soft, non-tender, nondistended. Hepatic and splenic margins not palpable. MUSCULOSKELETAL: Extremities without clubbing, cyanosis, or edema. No obvious deformities. NEUROLOGICAL: Awake and alert. No obvious cranial nerve deficits. Motor grossly within normal limits. Five out of 5 muscle strength in the arms and legs. Normal speech. PSYCHIATRIC: Appropriate mood and affect; insight and judgment normal. Hospital Course 56 Y CM, ADMIT WITH THE BELOW, AND HOSPITAL COURSE AND PLAN WAS- Acute Respiratory failure -Most likely secondary to end-stage COPD and sedation from narcotic use. HCAP: PO ABX, WAS ON IV ABX. End-stage COPD exacerbation -Continue with BiPAP. Patient is on IV steroids and Rocephin/azithromycin. -Very poor prognosis. on hospice but is full code. Hypertension/history of CHF -Continue Bumex, hydralazine, and isosorbide Diabetes mellitus -Blood sugars running in the mid 200s to lower 300s. -Continue with Lantus and insulin sliding scale. Will adjust accordingly. Constipation -Most likely secondary to narcotic use. -Continue bowel regimen. -Patient unable to complete a CT scan does due to sedation. -I do not suspect any bowel obstruction or perforation he is asymptomatic. - KUB JEFF - Nocturnal BiPAP GERD - Omeprazole DVT GI prophylaxis - Teds SCDs subcutaneous heparin - Omeprazole Discharge Planning- Very poor prognosis. Patient is on hospice. Discharge Disposition: Hospice/ Home Discharge Instructions DIET: Follow Instructions for: Heart Healthy Diet, Diabetic Diet Activities you can perform: Regular-No Restrictions New Medications: Oxygen (O2) (Oxygen (O2)) Device 2 LITER JACQUELINE.CANULA CONTINUOUS Oxygen Concentrator Portable Gaseous 2 L/min via Nasal Canula Continuous For 99 months Prevent Hypoxemia #2 CYLINDER Oxygen tank (Oxygen tank) 1 Ea Tank 2 LITER JACQUELINE.CANULA CONTINUOUS Oxygen Concentrator Portable Gaseous 2 L/min via Nasal Cannula Continuous For 99 months HYPOXEMIA PREVENTION #1 CYLINDER Continued Medications: Albuterol 18 GM Inh (Ventolin Hfa 18 GM Inh) 90 Mcg/Act Aer 1 PUFF INH Q4H PRN MILD/MODERATE SOB/WHEEZING #1 Ref 0 INHALER Albuterol 18 GM Inh (Ventolin Hfa 18 GM Inh) 90 Mcg/Act Aer 2 PUFF INH Q4H PRN SEVERE SOB/WHEEZING #1 Ref [address] (Aspirin DR) 81 Mg Tabdr 81 MG PO DAILY Ref 0 TAB Bisacodyl Supp (Dulcolax Supp) 10 Mg Supp 10 MG RECTAL DAILY PRN CONSTIPATION #12 Ref 0 SUPP Bumetanide (Bumetanide) 2 Mg Tab 2 MG PO BID EDEMA Days 90 Ref 9 TAB Bupropion HCl (Bupropion HCl) 100 Mg Tab 100 MG PO DAILY Control Depression Ref 0 TAB Fluticasone-Salmeterol Inh (Advair Diskus Inh) 250-50 Mcg/Blist Aer 2 PUFF INH BID Rinse mouth after use. #1 Ref 0 INHALER Folic Acid (Folic Acid) 800 Mcg Tab 800 MCG PO DAILY Nutritional Supplement Ref 0 TAB Hydralazine HCl (Hydralazine HCl) 25 Mg Tablet 25 MG PO TID Blood Pressure Management #90 Ref 0 TAB Hydrocodone-Acetaminophen (Lortab) 10-325 Mg Tab 1 TAB PO Q4H PRN PAIN Ref 0 TAB Insulin Glargine Inj (Lantus Inj) 1,000 Unit/10 Ml Vial 80 UNITS SQ BID Blood Sugar Management Ref 0 VIAL Ipratropium-Albuterol Neb (Duoneb) 0.5-2.5 Mg/3 Ml Neb 1 NEBULE NEB Q4HR NEB PRN SHORTNESS OF BREATH #30 Ref 0 NEBULE Isosorbide Mononitrate ER (Isosorbide Mononitrate ER) 30 Mg Alexsander 30 MG PO DAILY Prevent Chest Pain #30 Ref 0 TAB Lorazepam (Lorazepam) 1 Mg Tab 1 MG PO Q4H PRN MODERATE/SEVERE ANXIETY/SOB Ref 0 TAB Lorazepam (Lorazepam) 0.5 Mg Tab 0.5 MG PO Q4H PRN MILD/MODERATE ANXIETY/SOB Ref 0 TAB Magnesium Hydroxide Liq (Milk of Magnesia Liq) 400 Mg/5 Ml Susp 30 ML PO DAILY PRN CONSTIPATION #1 Ref 0 BOTTLE Morphine Liq (Morphine Liq) 20 Mg/Ml Liq 5 MG PO Q4H PRN MILD/MODERATE SOB/WHEEZING Ref 0 ML Morphine Liq (Morphine Liq) 20 Mg/Ml Liq 10 MG PO Q4H PRN SEVERE SOB/WHEEZING Ref 0 ML Omeprazole (Omeprazole) 20 Mg Tab 20 MG PO DAILY #30 Ref 0 TAB Sennosides-Docusate Sodium (Senna S) 8.6-50 Mg Tab 1-2 TAB PO Q12HR PRN CONSTIPATION Spironolactone (Spironolactone) 100 Mg Tab 100 MG PO BID #60 Ref 0 TAB Discontinued Medications: Glipizide (Glipizide) 5 Mg Tab 5 MG PO DAILY Take 30 minutes before a meal Blood Sugar Management #30 Ref 0 TAB Jozef Gilliland MD Nov 15, 2016 09:18
[2016-11-15] MEDS ORDERED: AZIT250T3 PO (09:23)
== END 2016-11-15 11:25 | disposition hospice, home (50) | DRG 189 ==
LOC: NEPE 14:22 → NEDA 17:49 → HCVR 21:45 → HCIN 11-13 10:43
PROVIDERS: ADMIT Family Medicine; ATTEND Family Medicine
PROC: 5A09457 Assistance with Respiratory Ventilation, 24-96 Consecutive Hours, Continuous Positive Airway Pressure (ICD-10-PCS; principal; 2016-11-11)
DX: J96.02 Acute respiratory failure with hypercapnia (principal); J18.9 Pneumonia, unspecified organism; I11.0 Hypertensive heart disease with heart failure; J44.0 Chronic obstructive pulmonary disease with (acute) lower respiratory infection; I50.22 Chronic systolic (congestive) heart failure; E11.65 Type 2 diabetes mellitus with hyperglycemia; R13.10 Dysphagia, unspecified; Z99.81 Dependence on supplemental oxygen; J44.1 Chronic obstructive pulmonary disease with (acute) exacerbation; Z68.41 Body mass index [BMI] 40.0-44.9, adult; E87.1 Hypo-osmolality and hyponatremia; K59.00 Constipation, unspecified; F41.9 Anxiety disorder, unspecified; G47.33 Obstructive sleep apnea (adult) (pediatric); K21.9 Gastro-esophageal reflux disease without esophagitis; F17.210 Nicotine dependence, cigarettes, uncomplicated; E66.01 Morbid (severe) obesity due to excess calories; G40.909 Epilepsy, unspecified, not intractable, without status epilepticus; Y95 Nosocomial condition; F32.9 Major depressive disorder, single episode, unspecified; G47.00 Insomnia, unspecified; G89.29 Other chronic pain; R00.0 Tachycardia, unspecified; R14.0 Abdominal distension (gaseous); Z79.4 Long term (current) use of insulin
CPT/HCPCS: 36600; 71010; 74000; 80048; 80053; 80307; 82805; 82947; 82948; 83735; 83880; 84100; 84484; 85025; 85027; 87040; 87641; 93005; 94002; 94003; 94640; 94664; 96365; 96368; 96375; J0456; J0692; J0696; J1644; J1815; J1940; J2310; J2930; J7050; J7060; J7512

== ENCOUNTER 2017-01-19 15:24 | Inpatient (IN) | payer OTHER ==
[~2017-01-19] VITALS: Ht 177.8 cm; Wt 119.9 kg
[~2017-01-19 15:24] MED LIST changes: +ADVA250A INH; +ASPI81TA5 PO; -ATOR40TA16 PO; +AZIT250T3 PO; -DOCU100C PO; +DULC10SU3 RECTAL; -FOLI1TAB4 PO; +FOLI800T PO; +HYDR-3535 PO; -LANTINJ SQ; +LANTUS2P SQ; +LORA-373 PO; +LORA1TAB12 PO; -LYRI50CA PO; +MILKSUS PO; +MORP20SO2 PO; +OMEP20TA PO; +OXYGENDME NAS.CANULA; +OXYGENTANK NAS.CANULA; -PROT40TA PO; -SENN1TAB PO; +SENN8.6T8 PO; +SPIR100T PO; -SPIR25 PO; -SPIRCAP INH; -TRAM50TA PO; -TRAZ50TA12 PO; +VENTAER INH
[2017-01-19 15:33] VITALS: BP 162/79; PULSE 59; RESP 27; TEMP 98.5; O2SAT 99
[2017-01-19] MEDS ORDERED: TRAZ50TA12 PO (15:49)
[2017-01-19] MEDS ORDERED: LYRI50CA PO (15:49)
[2017-01-19] MEDS ORDERED: TRAM50TA PO (15:49)
[2017-01-19 15:54] VITALS: O2SAT 99
[2017-01-19] MEDS ORDERED: MORPHINE SULFATE 4 MG/ML INJ IV PUSH ONE (16:00)
[2017-01-19] MEDS ORDERED: RESP: ALBUTEROL 2.5 MG/3 ML NEB (SCH) INH ONE (16:00)
[2017-01-19] MEDS ORDERED: SODIUM CHLORIDE 0.9% FLUSH 10 ML FLUSH IVF PRN (16:00)
[2017-01-19] MEDS ORDERED: RESP: ALBUTEROL 2.5 MG/IPRATROPIUM 0.5 MG NEB (SCH) INH ONE (16:00)
[2017-01-19 16:14] VITALS: O2SAT 95
[2017-01-19 16:15] LABS: AUTOMATED NEUTROPHIL # 9.7 TH/MM3 (1.8-7.7); BASOPHIL # 0.1 TH/MM3 (0-0.2); BASOPHIL % 0.8 % (0.0-2.0); EOSINOPHIL # 0.2 TH/MM3 (0-0.4); EOSINOPHIL % 1.5 % (0.0-4.0); HEMATOCRIT 36.3 % (39.0-51.0); HEMO FLAGS DIFF FINAL; MEAN CELL VOLUME 62.5 FL (80.0-100.0); MEAN CORPUSCULAR HEMOGLOBIN 18.1 PG (27.0-34.0); MONO % 11.1 % (0.0-8.0); NEUT % 71.6 % (16.0-70.0); PLATELET COUNT 425 TH/MM3 (150-450); RED BLOOD COUNT 5.82 MIL/MM3 (4.50-5.90); RED CELL DISTRIBUTION WIDTH 20.8 % (11.6-17.2); WHITE BLOOD COUNT 13.5 TH/MM3 (4.0-11.0)
[2017-01-19 16:16] LABS: APTT (PATIENT) 30.1 SEC (24.3-30.1); INTERNATIONAL NORMALIZED RATIO 0.9 RATIO; PROTHROMBIN TIME - PATIENT 10.2 SEC (9.8-11.6)
[2017-01-19 16:17] LABS: MEAN CORPUSCULAR HGB CONC 28.9 % (32.0-36.0)
[2017-01-19 16:24] LABS: BLOOD GAS BASE EXCESS 9.1 mmol/L (-2-2); BLOOD GAS CARBOXYHEMOGLOBIN 6.6 % (0-4); BLOOD GAS HCO3 35 mmol/L (22-26); BLOOD GAS METHEMOGLOBIN 0.9 % (0-2); BLOOD GAS O2 HGB SATURATION 85 % (90-100); BLOOD GAS OXYGEN CONTENT 12.9 Vol % (12.0-20.0); BLOOD GAS PCO2 68 mmHg (38-42); BLOOD GAS PO2 69 mmHG (61-120); BLOOD GAS TOTAL HGB 10.7 G/DL (12.0-16.0); CRITICAL VALUE YES; TEMP CORR TO 98.6
[2017-01-19 16:24] LABS: ALT (GPT) 17 U/L (12-78); ANION GAP 3 MEQ/L (5-15); AST (GOT) 5 U/L (15-37); BICARBONATE 35.1 MEQ/L (21.0-32.0); BLOOD UREA NITROGEN 23 MG/DL (7-18); CHLORIDE 93 MEQ/L (98-107); GLOMERULAR FILTRATION RATE 81 ML/MIN (>89); POTASSIUM 4.8 MEQ/L (3.5-5.1); SODIUM (NA) 131 MEQ/L (136-145)
[2017-01-19 16:25] LABS: DRAW SITE RT RADIAL; LITER FLOW 2 L/M; NUMBER OF ARTERIAL PUNCTURES 1; OXYGEN DEVICE NASAL CANNULA; STAT YES; ULNAR PULSE PRESENT
[2017-01-19 16:27] LABS: ALKALINE PHOSPHATASE 103 U/L (45-117); TOTAL BILIRUBIN ADULT 0.3 MG/DL (0.2-1.0)
--- NOTE | 2017-01-19 16:35 | PD ---
HPI Chief Complaint: Respiratory Distress Time Seen by Provider: 15:45 Travel History International Travel<30 days: No Contact w/Intl Traveler<30days: No Traveled to known affect area: No History of Present Illness HPI 56-year-old male with history COPD, hypertension, presents today with complaints of shortness of breath and wheezing. Patient also presents with productive brown phlegm cough. Patient also states that he's having pleuritic left sided chest pain. He states the chest pain presented yesterday with his cough. He reports the pain as sharp and stabbing worse with cough and tender to his left anterior lateral chest with touch. There is no nausea or diaphoresis. Patient still uses tobacco. He reports a 1-1/2 pack per day history. He does use home oxygen at 2 L. PFSH Past Medical History Hx Anticoagulant Therapy: Yes (ASA) Arthritis: No Asthma: Yes Autoimmune Disease: No Blood Disorders: No Anxiety: Yes Depression: No Heart Rhythm Problems: No Cancer: No Cardiac Catheterization: No Cardiovascular Problems: Yes High Cholesterol: No Chest Pain: Yes Congestive Heart Failure: Yes COPD: Yes Cerebrovascular Accident: No Coronary Artery Disease: No Diabetes: Yes Patient Takes Glucophage: No Diminished Hearing: No Endocrine: Yes Gastrointestinal Disorders: Yes GERD: Yes Genitourinary: No Headaches: No Hiatal Hernia: No Hypertension: Yes Immune Disorder: No Implanted Vascular Access Dvce: No Musculoskeletal: Yes Neurologic: Yes Psychiatric: Yes Reproductive: No Respiratory: Yes (COPD) Migraines: No Seizures: Yes Sleep Apnea: Yes Thyroid Disease: No Ulcer: No Past Surgical History Abdominal Surgery: No Coronary Artery Bypass Graft: No Other Surgery: Yes (wart removed right leg) Social History Alcohol Use: No Tobacco Use: Yes (04/17 PPD) Substance Use: No Allergies-Medications (Allergen,Severity, Reaction): Coded Allergies: No Known Allergies (Verified , 09/12/16) Reported Meds & Prescriptions Reported Meds & Active Scripts Active Oxygen (O2) Device 2 Liter JACQUELINE.CANULA CONTINUOUS Oxygen Concentrator Portable Gaseous 2 L/min via Nasal Canula Continuous For 99 months Oxygen tank (Oxygen) 1 Ea Tank 2 Liter JACQUELINE.CANULA CONTINUOUS Oxygen Concentrator Portable Gaseous 2 L/min via Nasal Cannula Continuous For 99 months Bumetanide 2 Mg Tab 2 Mg PO BID 90 Days Reported Lyrica (Pregabalin) 50 Mg Cap 50 Mg PO DAILY Tramadol (Tramadol HCl) 50 Mg Tab 50 Mg PO Q4H PRN Trazodone (Trazodone HCl) 50 Mg Tab 50 Mg PO HS Spironolactone 100 Mg Tab 100 Mg PO BID Ventolin Hfa 18 GM Inh (Albuterol Sulfate) 90 Mcg/Act Aer 1 Puff INH Q4H PRN Dulcolax Supp (Bisacodyl) 10 Mg Supp 10 Mg RECTAL DAILY PRN Senna S (Sennosides-Docusate Sodium) 8.6-50 Mg Tab 1-2 Tab PO Q12HR PRN Omeprazole 20 Mg Tab 20 Mg PO DAILY Lantus Inj (Insulin Glargine) 1,000 Unit/10 Ml Vial 80 Units SQ BID Advair Diskus Inh (Fluticasone-Salmeterol Inh) 250-50 Mcg/Blist Aer 2 Puff INH BID Rinse mouth after use. Aspirin DR (Aspirin) 81 Mg Tabdr 81 Mg PO DAILY Hydralazine HCl 25 Mg Tablet 25 Mg PO TID Isosorbide Mononitrate ER (Isosorbide Mononitrate) 30 Mg Alexsander 30 Mg PO DAILY Duoneb (Ipratropium-Albuterol Neb) 0.5-2.5 Mg/3 Ml Neb 1 Nebule NEB Q4HR NEB PRN Bupropion HCl 100 Mg Tab 100 Mg PO DAILY Review of Systems Except as stated in HPI: all other systems reviewed are Neg General / Constitutional: No: Fever, Chills HENT: No: Headaches, Lightheadedness Cardiovascular: Positive: Chest Pain or Discomfort (left lateral anterior. Described as sharp and), Tachycardia, No: Palpitations Respiratory: Positive: Cough, Shortness of Breath (productive brown phlegm), Wheezing Gastrointestinal: No: Nausea, Vomiting, Abdominal Pain Musculoskeletal: Positive: Pain (left lateral chest wall pleuritic pain.), No: Weakness Neurologic: No: Weakness, Headache, Change in Mentation Physical Exam Narrative GENERAL: Obese male in mild to moderate respiratory distress. SKIN: Focused skin assessment warm/dry. HEAD: Atraumatic. Normocephalic. EYES: No scleral icterus. No injection or drainage. ENT: No nasal bleeding or discharge. Mucous membranes pink and moist. NECK: Trachea midline. No JVD. CARDIOVASCULAR: The cardiac with a rate of 100. No murmur appreciated. RESPIRATORY: Diffuse expiratory wheezes with rhonchi bilaterally in the upper airways. GASTROINTESTINAL: Abdomen soft, obese, non-tender, nondistended. MUSCULOSKELETAL: No obvious deformities. No clubbing. No cyanosis. No edema. NEUROLOGICAL: Awake and alert. No obvious cranial nerve deficits. Motor grossly within normal limits. Normal speech. PSYCHIATRIC: Appropriate mood and affect; insight and judgment normal. Data Data Last Documented VS Orders Orders Electrocardiogram (01/19/17 ) Complete Blood Count With Diff (01/19/17 15:46) Comprehensive Metabolic Panel (01/19/17 15:46) B-Type Natriuretic Peptide (01/19/17 15:46) Act Partial Throm Time (Ptt) (01/19/17 15:46) Prothrombin Time / Inr (Pt) (01/19/17 15:46) Ckmb (Isoenzyme) Profile (01/19/17 15:46) Troponin I (01/19/17 15:46) Arterial Blood Gas (Abg) (01/19/17 15:46) Iv Access Insert/Monitor (01/19/17 15:46) Ecg Monitoring (01/19/17 15:46) Oximetry (01/19/17 15:46) Oxygen Administration (01/19/17 15:46) Chest, Single Ap (01/19/17 15:46) Albuterol-Ipratropium Neb (Duoneb Neb) (01/19/17 16:00) Albuterol Neb (Albuterol Neb) (01/19/17 16:00) Morphine Inj (Morphine Inj) (01/19/17 16:00) Admit To Inpatient (01/19/17 ) Code Status (01/19/17 17:50) Vital Signs (Adult) Q4H (01/19/17 17:50) Activity Oob With Assistance (01/19/17 17:50) Diet 1800 Ada Cons Carb (01/19/17 Dinner) Sodium Chloride 0.9% Flush (Ns Flush) (01/19/17 18:00) Sodium Chloride 0.9% Flush (Ns Flush) (01/19/17 21:00) Acetaminophen (Tylenol) (01/19/17 18:00) Ondansetron Inj (Zofran Inj) (01/19/17 18:00) Temazepam (Restoril) (01/19/17 18:00) Comprehensive Metabolic Panel (01/20/17 06:00) Complete Blood Count With Diff (01/20/17 06:00) Creatine Kinase (Cpk) (01/19/17 22:00) Troponin I (01/19/17 22:00) Electrocardiogram (01/19/17 22:00) Case Management Consult (01/19/17 17:50) Enoxaparin Inj (Lovenox Inj) (01/19/17 21:00) Acetaminophen (Tylenol) (01/19/17 18:00) Naloxone Inj (Narcan Inj) (01/19/17 18:00) Magnesium Hydroxide Liq (Milk Of Magnesi (01/19/17 18:00) Inpatient Certification (01/19/17 ) Bedside Glucose ARIEL.CSUGAR (01/19/17 17:50) Blood Glucose Goal (Criteria) (01/19/17 17:50) Hypoglycemia 70 Mg/Dl Or < (01/19/17 17:50) Notify Dr: Other (01/19/17 17:50) Dextrose 50% In Yahir (Vial) Inj (D50w (Vi (01/19/17 18:00) Glucagon Inj (Glucagon Inj) (01/19/17 18:00) Insulin Aspart Supplemtl Scale (Novolog (01/19/17 21:00) Sodium Chloride 0.9% Flush (Ns Flush) (01/19/17 18:00) Budeson-Formot 160-4.5 Mg Inh (Symbicort (01/19/17 21:00) Azithromycin (Zithromax) (01/19/17 20:00) Nicotine 21 Mg Patch.24 Hr (Habitrol 21 (01/20/17 09:00) Copd Educator Consult (01/19/17 ) Guaifenesin Er (Mucinex Er) (01/19/17 21:00) Albuterol-Ipratropium Neb (Duoneb Neb) (01/19/17 20:00) Albuterol-Ipratropium Neb (Duoneb Neb) (01/19/17 18:00) Tiotropium Inh (Spiriva Inh) (01/20/17 09:00) Admit Order (Ed Use Only) (01/19/17 18:03) Methylprednisolone So Succ Inj (Solumedr (01/19/17 22:00) Labs Laboratory Tests Test 01/19/17 15:50 01/19/17 16:12 White Blood Count 13.5 TH/MM3 Red Blood Count 5.82 MIL/MM3 Hemoglobin 10.5 GM/DL Hematocrit 36.3 % Mean Corpuscular Volume 62.5 FL Mean Corpuscular Hemoglobin 18.1 PG Mean Corpuscular Hemoglobin Concent 28.9 % Red Cell Distribution Width 20.8 % Platelet Count 425 TH/MM3 Mean Platelet Volume 8.6 FL Neutrophils (%) (Auto) 71.6 % Lymphocytes (%) (Auto) 15.0 % Monocytes (%) (Auto) 11.1 % Eosinophils (%) (Auto) 1.5 % Basophils (%) (Auto) 0.8 % Neutrophils # (Auto) 9.7 TH/MM3 Lymphocytes # (Auto) 2.0 TH/MM3 Monocytes # (Auto) 1.5 TH/MM3 Eosinophils # (Auto) 0.2 TH/MM3 Basophils # (Auto) 0.1 TH/MM3 CBC Comment DIFF FINAL Differential Comment Prothrombin Time 10.2 SEC Prothromb Time International Ratio 0.9 RATIO Activated Partial Thromboplast Time 30.1 SEC Blood Urea Nitrogen 23 MG/DL Creatinine 0.96 MG/DL Random Glucose 283 MG/DL Total Protein 7.4 GM/DL Albumin 3.7 GM/DL Calcium Level 9.0 MG/DL Alkaline Phosphatase 103 U/L Aspartate Amino Transf (AST/SGOT) 5 U/L Alanine Aminotransferase (ALT/SGPT) 17 U/L Total Bilirubin 0.3 MG/DL Sodium Level 131 MEQ/L Potassium Level 4.8 MEQ/L Chloride Level 93 MEQ/L Carbon Dioxide Level 35.1 MEQ/L Anion Gap 3 MEQ/L Estimat Glomerular Filtration Rate 81 ML/MIN Total Creatine Kinase 16 U/L Troponin I LESS THAN 0.02 NG/ML B-Type Natriuretic Peptide 135 PG/ML Blood Gas Puncture Site RT RADIAL Blood Gas Patient Temperature 98.6 Blood Gas HCO3 35 mmol/L Blood Gas Base Excess 9.1 mmol/L Blood Gas Oxygen Saturation 85 % Arterial Blood pH 7.33 Arterial Blood Partial Pressure CO2 68 mmHg Arterial Blood Partial Pressure O2 69 mmHG Arterial Blood Oxygen Content 12.9 Vol % Arterial Blood Carboxyhemoglobin 6.6 % Arterial Blood Methemoglobin 0.9 % Blood Gas Hemoglobin 10.7 G/DL Oxygen Delivery Device NASAL CANNULA Blood Gas Liter Flow 2 L/M MDM Medical Decision Making Medical Screen Exam Complete: Yes Emergency Medical Condition: Yes Differential Diagnosis COPD versus CHF versus pneumonia versus ACS Narrative Course 56-year-old male with history of tobaccoism, presents here with today with shortness of breath and wheezing. The patient has a history of COPD. The patient's been given nebulizer treatments and Solu-Medrol. The case was discussed with Dr. Cristobal, [facility] who agrees with the admission. His ABG showed a PCO2 in the 60s as well as a PO2 in the 60s. He' ll be treated with antibiotics as well. Diagnosis Primary Impression: Acute exacerbation of chronic obstructive pulmonary disease (COPD) Additional Impressions: Acute hypercapnic respiratory failure NICOTINE DEPENDENCE, OTH TOBACCO PRODUCT, W OTH DISORDERS Admitting Information Admitting Physician Requests: Admit Scripts Amoxicillin-Clavulanate (Augmentin) 875-125 Mg Tab 1 TAB PO BID for Infection for 10 Days, #20 TAB 0 Refills Prov: Jozef Gilliland MD 01/22/17 Bradley Almanza MD Jan 19, 2017 16:35
[2017-01-19 16:44] LABS: CREATINE KINASE 16 U/L (39-308)
--- NOTE | 2017-01-19 17:02 | RADRPT ---
EXAM DATE/TIME: 01/19/2017 16:23 [facility] COMPARISON: CHEST SINGLE AP, November 11, 2016, 14:49. INDICATIONS : Chest pain and shortness of breath. MEDICAL HISTORY : Chronic obstructive pulmonary disease. Hypertension Diabetes mellitus type II. Hypertension. Pneu monia. Congestive heart failure. SURGICAL HISTORY : Cardiac catheterization. ENCOUNTER: Initial ACUITY: 2 days PAIN SCORE: 5/10 LOCATION: Bilateral chest FINDINGS: Stable minimal bibasilar airspace disease likely atelectasis/scarring. No new focal pleural or parenc hymal opacities. Cardiomediastinal contours are stable. Remainder of the exam is unchanged. CONCLUSION: 1. Stable bibasilar atelectasis/scarring. 2. No acute abnormality or significant interval change. Alexei Medina MD on January 19, 2017 at 17:00 Board Certified Radiologist. This report was verified electronically.
[2017-01-19 17:12] VITALS: BP 168/80; PULSE 95; RESP 26; O2SAT 94
[2017-01-19] MEDS ORDERED: NALOXONE HCL 0.4 MG/ML AMP IV PUSH PRN (18:00)
[2017-01-19] MEDS ORDERED: ACETAMINOPHEN 325 MG TAB PO PRN ×2 (18:00)
[2017-01-19] MEDS ORDERED: MAGNESIUM HYDROXIDE SUSP 30 ML CUP PO PRN (18:00)
[2017-01-19] MEDS ORDERED: DEXTROSE 50% IN WATER 50 ML VIAL(D50) IV PUSH PRN (18:00)
[2017-01-19] MEDS ORDERED: SODIUM CHLORIDE 0.9% FLUSH 10 ML FLUSH IV FLUSH PRN ×2 (18:00)
[2017-01-19] MEDS ORDERED: RESP: ALBUTEROL 2.5 MG/IPRATROPIUM 0.5 MG NEB (PRN) NEB (18:00)
[2017-01-19] MEDS ORDERED: GLUCAGON 1 MG/ML VIAL OTHER PRN (18:00)
[2017-01-19] MEDS ORDERED: TEMAZEPAM 15 MG CAP PO PRN (18:00)
[2017-01-19] MEDS ORDERED: ONDANSETRON HCL 4 MG/2 ML VIAL IVP PRN (18:00)
--- NOTE | 2017-01-19 18:33 | HHI.HP ---
HPI [facility] Primary [facility] Physician Jozef Gilliland MD Admission Diagnosis COPD exacerbation, chest pain, tobaccoism. Diagnoses: (1) COPD with respiratory failure, acute (2) COPD with exacerbation (3) Chest pain (4) Tobacco abuse Chief Complaint: Chest pain along with shortness of breath Travel History International Travel<30 Days: No Contact w/Intl Traveler <30 Da: No Traveled to Known Affected Are: No History of Present Illness 56-year-old male with a history of COPD, diabetes type 2, tobacco abuse came to the ED for evaluation of worsening symptoms of shortness of breath with wheezing along with pleuritic chest pain times several day duration. Patient also reports nonproductive cough however denies any febrile episode. He is on chronic 2 L of oxygen but reports significant shortness of breath and state has been feeling fatigued easily. Denies any hemoptysis. Patient continued to smoke one pack per day. He has no GI bleed Review of Systems Except as stated in HPI: all other systems reviewed are Neg Past Family Social History Past Medical History COPD HTN DM JEFF Seizures GERD Tobacco abuse Past Surgical History Cardiac catheterization 2014 Allergies: Coded Allergies: No Known Allergies (Verified , 09/12/16) Family History Father, age 27, liver cirrhosis Mother, , old age Social History (+)tobacco use 1 1/2 ppd No EtOH use No illicit drug use Use of medical marijuana Physical Exam Vital Signs Vital Signs Date Time Temp Pulse Resp B/P (MAP) Pulse Ox O2 Delivery O2 Flow Rate FiO2 01/19/17 17:12 95 26 168/80 (109) 94 Nasal Cannula 4.00 01/19/17 16:14 95 Nasal Cannula 2.00 01/19/17 15:54 99 Aerosol Mask 8.00 01/19/17 15:54 99 Aerosol Mask 8.00 01/19/17 15:50 99 Aerosol Mask 8.00 01/19/17 15:33 98.5 59 27 162/79 (106) 99 Physical Exam GENERAL: This is a well-nourished, well-developed patient, in no apparent distress. SKIN: No rashes, ecchymoses or lesions. Cool and dry. HEAD: Atraumatic. Normocephalic. No temporal or scalp tenderness. EYES: Pupils equal round and reactive. Extraocular motions intact. No scleral icterus. No injection or drainage. ENT: Nose without bleeding, purulent drainage or septal hematoma. Throat without erythema, tonsillar hypertrophy or exudate. Uvula midline. Airway patent. NECK: Trachea midline. No JVD or lymphadenopathy. Supple, nontender, no meningeal signs. CARDIOVASCULAR: Regular rate and rhythm without murmurs, gallops, or rubs. RESPIRATORY: Clear to auscultation. Breath sounds equal bilaterally. No wheezes , rales, or rhonchi. GASTROINTESTINAL: Abdomen soft, non-tender, nondistended. No hepato-splenomegaly , or palpable masses. No guarding. MUSCULOSKELETAL: Extremities without clubbing, cyanosis, or edema. No joint tenderness, effusion, or edema noted. No calf tenderness. Negative Homans sign bilaterally. NEUROLOGICAL: Awake and alert. Cranial nerves II through XII intact. Motor and sensory grossly within normal limits. Five out of 5 muscle strength in all muscle groups. Normal speech. Laboratory Laboratory Tests Test 01/19/17 15:50 01/19/17 16:12 White Blood Count 13.5 Red Blood Count 5.82 Hemoglobin 10.5 Hematocrit 36.3 Mean Corpuscular Volume 62.5 Mean Corpuscular Hemoglobin 18.1 Mean Corpuscular Hemoglobin Concent 28.9 Red Cell Distribution Width 20.8 Platelet Count 425 Mean Platelet Volume 8.6 Neutrophils (%) (Auto) 71.6 Lymphocytes (%) (Auto) 15.0 Monocytes (%) (Auto) 11.1 Eosinophils (%) (Auto) 1.5 Basophils (%) (Auto) 0.8 Neutrophils # (Auto) 9.7 Lymphocytes # (Auto) 2.0 Monocytes # (Auto) 1.5 Eosinophils # (Auto) 0.2 Basophils # (Auto) 0.1 CBC Comment DIFF FINAL Differential Comment Prothrombin Time 10.2 Prothromb Time International Ratio 0.9 Activated Partial Thromboplast Time 30.1 Blood Urea Nitrogen 23 Creatinine 0.96 Random Glucose 283 Total Protein 7.4 Albumin 3.7 Calcium Level 9.0 Alkaline Phosphatase 103 Aspartate Amino Transf (AST/SGOT) 5 Alanine Aminotransferase (ALT/SGPT) 17 Total Bilirubin 0.3 Sodium Level 131 Potassium Level 4.8 Chloride Level 93 Carbon Dioxide Level 35.1 Anion Gap 3 Estimat Glomerular Filtration Rate 81 Total Creatine Kinase 16 Troponin I LESS THAN 0.02 B-Type Natriuretic Peptide 135 Blood Gas Puncture Site RT RADIAL Blood Gas Patient Temperature 98.6 Blood Gas HCO3 35 Blood Gas Base Excess 9.1 Blood Gas Oxygen Saturation 85 Arterial Blood pH 7.33 Arterial Blood Partial Pressure CO2 68 Arterial Blood Partial Pressure O2 69 Arterial Blood Oxygen Content 12.9 Arterial Blood Carboxyhemoglobin 6.6 Arterial Blood Methemoglobin 0.9 Blood Gas Hemoglobin 10.7 Oxygen Delivery Device NASAL CANNULA Blood Gas Liter Flow 2 Result Diagram: 01/19/17 1550 01/19/17 1550 Imaging Last Impressions Chest X-Ray 01/19/17 1546 Signed Impressions: Service Date/Time: Thursday, January 19, 2017 16:23 - CONCLUSION: 1. Stable bibasilar atelectasis/scarring. 2. No acute abnormality or significant interval change. MD David Payne VTE Risk Assessment David VTE Risk Assessment: No/Low Risk (score <= 1) Caprini Risk Assessment Model Point Value = 1 Point Value = 2 Point Value = 3 Point Value = 5 Age 41-60 Minor surgery BMI > 25 kg/m2 Swollen legs Varicose veins or History of unexplained or recurrent spontaneous Oral contraceptives or hormone replacement Sepsis (< 1 month) Serious lung disease, including pneumonia (< 1 month) Abnormal pulmonary function Acute myocardial infarction Congestive heart failure (< 1 month) History of inflammatory bowel disease Medical patient at bed rest Age 61-74 Arthroscopic surgery Major open surgery (> 45 min) Laparoscopic surgery (> 45 min) Malignancy Confined to bed (> 72 hours) Immobilizing plaster cast Central venous access Age >= 75 History of VTE Family history of VTE Factor V Leiden Prothrombin [id number] Lupus anticoagulant Anticardiolipin antibodies Elevated serum homocysteine Heparin-induced thrombocytopenia Other congenital or acquired thrombophilia Stroke (< 1 month) Elective arthroplasty Hip, pelvis, or leg fracture Acute spinal cord injury (< 1 month) Prophylaxis Regimen Total Risk Factor Score Risk Level Prophylaxis Regimen 0-1 Low Early ambulation 2 Moderate Order ONE of the following: *Sequential Compression Device (SCD) *Heparin 5000 units SQ BID 3-4 Higher Order ONE of the following medications: *Heparin 5000 units SQ TID *Enoxaparin/Lovenox 40 mg SQ daily (WT < 150 kg, CrCl > 30 mL/min) *Enoxaparin/Lovenox 30 mg SQ daily (WT < 150 kg, CrCl > 10-29 mL/min) *Enoxaparin/Lovenox 30 mg SQ BID (WT < 150 kg, CrCl > 30 mL/min) AND/OR *Sequential Compression Device (SCD) 5 or more Highest Order ONE of the following medications: *Heparin 5000 units SQ TID (Preferred with Epidurals) *Enoxaparin/Lovenox 40 mg SQ daily (WT < 150 kg, CrCl > 30 mL/min) *Enoxaparin/Lovenox 30 mg SQ daily (WT < 150 kg, CrCl > 10-29 mL/min) *Enoxaparin/Lovenox 30 mg SQ BID (WT < 150 kg, CrCl > 30 mL/min) AND *Sequential Compression Device (SCD) Assessment and Plan Problem List: (1) COPD with respiratory failure, acute ICD Code: J96.00 - Acute respiratory failure, unspecified whether with hypoxia or hypercapnia; J44.9 - Chronic obstructive pulmonary disease, unspecified (2) COPD with exacerbation ICD Code: J44.1 - COPD with exacerbation Status: Acute (3) Chest pain ICD Code: R07.9 - Chest pain Status: Acute (4) Tobacco abuse ICD Code: Z72.0 - Tobacco abuse Status: Chronic Assessment and Plan 56-year-old man with COPD exacerbation with respiratory failure hypercapnia Chest x-ray noted and reviewed by me and stable Start Solu-Medrol 40 mg IV every 8H, bronchodilator, Spiriva, Symbicort, Mucinex, azithromycin Check sputum culture,Flu A and B antigens, urinary legionella and pneumococcal antigens Low Threshold for intubation. Maintain oxygen saturation above 92% Tobacco cessation advised Atypical chest pain Likely 2/2 above process however will rule out ACS per protocol with serial cardiac enzyme and EKG Tobacco abuse Tobacco counseling provided Start nicotine patch Diabetes type 2, CAD, hypertension and other chronic medical conditions: Resume outpatient medications DVT prophylaxis: Lovenox Code Status Full code Discussed Condition With Patient, ED physician Physician Certification 2 Midnight Certification Type: Admission for Inpatient Services Order for Inpatient Services The services are ordered in accordance with Medicare regulations or non- Medicare payer requirements, as applicable. In the case of services not specified as inpatient-only, they are appropriately provided as inpatient services in accordance with the 2-midnight benchmark. Estimated LOS (days): 2 days is the estimated time the patient will need to remain in the hospital, assuming treatment plan goals are met and no additional complications. Post-Hospital Plan: Not yet determined Jose L Cristobal MD Jan 19, 2017 18:33
[2017-01-19 20:00] VITALS: BP 147/67; PULSE 101; PULSE 97; RESP 21; TEMP 98; O2SAT 97
[2017-01-19] MEDS ORDERED: AZITHROMYCIN 250 MG TAB PO ONE (20:00)
[2017-01-19] MEDS: BUMETANIDE 1 MG TAB PO SCH (20:21)
[2017-01-19] MEDS: guaiFENesin E.R. 600 MG TAB PO SCH (20:21)
[2017-01-19] MEDS: traZODone HCL 50 MG TAB PO SCH (20:22)
[2017-01-19] MEDS: SPIRONOLACTONE 100 MG TAB PO SCH (20:22)
[2017-01-19] MEDS: ENOXAPARIN SODIUM 30 MG/0.3 ML SYRINGE SQ SCH (20:23)
[2017-01-19] MEDS: ACETAMINOPHEN/HYDROcodone 325 MG/10 MG TAB PO PRN (20:23)
[2017-01-19] MEDS: SODIUM CHLORIDE 0.9% FLUSH 10 ML FLUSH IV FLUSH SCH (20:24)
[2017-01-19 20:39] VITALS: O2SAT 92
[2017-01-19] MEDS: RESP: ALBUTEROL 2.5 MG/IPRATROPIUM 0.5 MG NEB (SCH) NEB (20:39)
[2017-01-19] MEDS: INSULIN ASPART SUPPLEMENTAL SCALE SQ SCH (21:00)
[2017-01-19] MEDS: INSULIN DETEMIR 100 UNITS/ML VIAL SQ SCH (22:06)
[2017-01-19] MEDS: BUDESONIDE-FORMOTEROL 160/4.5 MCG INHALER INH SCH (22:06)
[2017-01-19] MEDS: methylPREDNISolone SOD SUCC 40 MG/1 ML VIAL IV PUSH SCH (22:06)
[2017-01-19 22:33] LABS: CREATINE KINASE 24 U/L (39-308)
[2017-01-20] VITALS (8 sets, daily range): BP systolic 132–158; BP diastolic 60–83; PULSE 70–116; RESP 18–24; TEMP 97.6–98.5; O2SAT 90–95
[2017-01-20] MEDS: ACETAMINOPHEN/HYDROcodone 325 MG/10 MG TAB PO PRN (03:45)
[2017-01-20 04:18] LABS: AUTOMATED NEUTROPHIL # 10.6 TH/MM3 (1.8-7.7); BASOPHIL % 0.1 % (0.0-2.0); HEMATOCRIT 39.3 % (39.0-51.0); HEMO FLAGS DIFF FINAL; LYMPH % 4.5 % (9.0-44.0); LYMPHOCYTE # 0.5 TH/MM3 (1.0-4.8); MEAN CELL VOLUME 63.8 FL (80.0-100.0); MEAN CORPUSCULAR HEMOGLOBIN 18.2 PG (27.0-34.0); MONO % 1.8 % (0.0-8.0); NEUT % 93.6 % (16.0-70.0); PLATELET COUNT 390 TH/MM3 (150-450); RED BLOOD COUNT 6.16 MIL/MM3 (4.50-5.90); RED CELL DISTRIBUTION WIDTH 20.8 % (11.6-17.2); WHITE BLOOD COUNT 11.3 TH/MM3 (4.0-11.0)
[2017-01-20 04:51] LABS: ALT (GPT) 17 U/L (12-78); ANION GAP 6 MEQ/L (5-15); AST (GOT) 8 U/L (15-37); BICARBONATE 33.9 MEQ/L (21.0-32.0); BLOOD UREA NITROGEN 26 MG/DL (7-18); CHLORIDE 92 MEQ/L (98-107); GLOMERULAR FILTRATION RATE 65 ML/MIN (>89); POTASSIUM 5.2 MEQ/L (3.5-5.1); SODIUM (NA) 132 MEQ/L (136-145)
[2017-01-20 04:55] LABS: ALKALINE PHOSPHATASE 106 U/L (45-117); TOTAL BILIRUBIN ADULT 0.3 MG/DL (0.2-1.0)
--- NOTE | 2017-01-20 05:03 | EKG ---
Date Performed: 01/19/2017 Time Performed: 21:26:53 PTAGE: 56 years EKG: Sinus rhythm POSSIBLE LEFT ATRIAL ENLARGEMENT MODERATE ST DEPRESSION ABNORMAL ECG PREVIOUS TRACING : 01/19/2017 15.43 DOCTOR: Adams Daniels Interpretating Date/Time 01/20/2017 05:02:40
[2017-01-20 05:08] LABS: MEAN CORPUSCULAR HGB CONC 28.6 % (32.0-36.0)
--- NOTE | 2017-01-20 05:11 | EKG ---
Date Performed: 01/19/2017 Time Performed: 15:43:49 PTAGE: 56 years EKG: Sinus rhythm POSSIBLE LEFT ATRIAL ENLARGEMENT BORDERLINE ECG PREVIOUS TRACING : 11/11/2016 15.11 DOCTOR: Adams Daniels Interpretating Date/Time 01/20/2017 05:06:17
[2017-01-20 05:21] LABS: CREATINE KINASE 18 U/L (39-308)
[2017-01-20] MEDS: ISOSORBIDE MONONITRATE 30 MG TAB PO SCH (05:36)
[2017-01-20] MEDS: methylPREDNISolone SOD SUCC 40 MG/1 ML VIAL IV PUSH SCH ×3 (05:36→21:10)
[2017-01-20] MEDS: RESP: ALBUTEROL 2.5 MG/IPRATROPIUM 0.5 MG NEB (SCH) NEB ×3 (07:56→20:03)
[2017-01-20] MEDS: INSULIN DETEMIR 100 UNITS/ML VIAL SQ SCH ×2 (08:35→21:00)
[2017-01-20] MEDS: INSULIN ASPART SUPPLEMENTAL SCALE SQ SCH ×4 (08:35→21:00)
[2017-01-20] MEDS: guaiFENesin E.R. 600 MG TAB PO SCH ×2 (08:36→21:09)
[2017-01-20] MEDS: ASPIRIN EC 81 MG TABEC PO SCH (08:36)
[2017-01-20] MEDS: NICOTINE 21 MG/24 HR PATCH TD SCH (08:36)
[2017-01-20] MEDS: AZITHROMYCIN 250 MG TAB PO SCH (08:36)
[2017-01-20] MEDS: PANTOPRAZOLE SOD 20 MG DELAYED RELEASE TAB PO SCH (08:36)
[2017-01-20] MEDS: hydrALAZINE HCL 25 MG TAB PO SCH ×3 (08:36→17:09)
[2017-01-20] MEDS: buPROPion HCL 100 MG TAB PO SCH (08:36)
[2017-01-20] MEDS: PREGABALIN 25 MG CAP PO SCH (08:37)
[2017-01-20] MEDS: BUDESONIDE-FORMOTEROL 160/4.5 MCG INHALER INH SCH ×2 (08:40→21:11)
[2017-01-20] MEDS: SPIRONOLACTONE 100 MG TAB PO SCH ×2 (08:40→17:09)
[2017-01-20] MEDS: BUMETANIDE 1 MG TAB PO SCH ×2 (08:40→17:08)
[2017-01-20] MEDS: TIOTROPIUM BROMIDE 18 MCG INH INH SCH (10:43)
[2017-01-20] MEDS: SODIUM CHLORIDE 0.9% FLUSH 10 ML FLUSH IV FLUSH SCH ×2 (10:43→21:10)
--- NOTE | 2017-01-20 13:49 | HHI.PR ---
Subjective Remarks Follow-up COPD with respiratory failure 01/20/17-patient seen and examined, reports significant improvement of shortness of breath. Still complains of back pain Objective Vitals Vital Signs Date Time Temp Pulse Resp B/P (MAP) Pulse Ox O2 Delivery O2 Flow Rate FiO2 01/20/17 12:00 98.5 116 18 158/60 (92) 93 01/20/17 08:12 99 01/20/17 08:00 98.0 93 20 146/83 (104) 90 01/20/17 04:00 98.3 110 22 142/68 (92) 93 01/20/17 00:00 97.8 110 24 132/75 (94) 93 01/19/17 20:39 92 Nasal Cannula 3.00 01/19/17 20:00 101 01/19/17 20:00 98.0 97 21 147/67 (93) 97 01/19/17 17:12 95 26 168/80 (109) 94 Nasal Cannula 4.00 01/19/17 16:14 95 Nasal Cannula 2.00 01/19/17 15:54 99 Aerosol Mask 8.00 01/19/17 15:54 99 Aerosol Mask 8.00 01/19/17 15:50 99 Aerosol Mask 8.00 01/19/17 15:33 98.5 59 27 162/79 (106) 99 I/O 01/19/17 01/19/17 01/19/17 01/20/17 01/20/17 01/20/17 06:59 14:59 22:59 06:59 14:59 22:59 Intake Total 1020 ml Balance 1020 ml Intake Oral 1020 ml # Voids 7 # Bowel Movements 0 Result Diagram: 01/20/17 0355 01/20/17 0355 Imaging Last Impressions Chest X-Ray 01/19/17 1546 Signed Impressions: Service Date/Time: Thursday, January 19, 2017 16:23 - CONCLUSION: 1. Stable bibasilar atelectasis/scarring. 2. No acute abnormality or significant interval change. Alexei Medina MD Objective Remarks GENERAL: NAD SKIN: Warm and dry. HEAD: Normocephalic. EYES: No scleral icterus. No injection or drainage. NECK: Supple, trachea midline. No JVD or lymphadenopathy. CARDIOVASCULAR: Regular rate and rhythm without murmurs, gallops, or rubs. RESPIRATORY: Breath sounds equal bilaterally. No accessory muscle use. GASTROINTESTINAL: Abdomen soft, non-tender, nondistended. MUSCULOSKELETAL: No cyanosis, or edema. BACK: Nontender without obvious deformity. No CVA tenderness. A/P Problem List: (1) COPD with respiratory failure, acute ICD Code: J96.00 - Acute respiratory failure, unspecified whether with hypoxia or hypercapnia; J44.9 - Chronic obstructive pulmonary disease, unspecified (2) COPD with exacerbation ICD Code: J44.1 - COPD with exacerbation Status: Acute (3) Chest pain ICD Code: R07.9 - Chest pain Status: Acute (4) Tobacco abuse ICD Code: Z72.0 - Tobacco abuse Status: Chronic Assessment and Plan 56-year-old man with COPD exacerbation with respiratory failure hypercapnia Continue Solu-Medrol 40 mg IV every 8H, bronchodilator, Spiriva, Symbicort, Mucinex, azithromycin Flu A and B antigens, urinary legionella and pneumococcal antigens negative Low Threshold for intubation. Maintain oxygen saturation above 92% Tobacco cessation advised Atypical chest pain ACS ruled out per protocol with serial cardiac enzyme and EKGs Tobacco abuse Tobacco counseling provided Continue nicotine patch Hyperkalemia Monitor K and treat accordingly Diabetes type 2, CAD, hypertension and other chronic medical conditions: Continue outpatient medications DVT prophylaxis: Jose L Telles MD Jan 20, 2017 13:49
[2017-01-20] MEDS: ACETAMINOPHEN/HYDROcodone 325 MG/7.5 MG TAB PO PRN ×3 (14:41→22:37)
[2017-01-20] MEDS: CYCLOBENZAPRINE HCL 10 MG TAB PO PRN (17:09)
[2017-01-20] MEDS: ENOXAPARIN SODIUM 30 MG/0.3 ML SYRINGE SQ SCH (21:09)
[2017-01-20] MEDS: traZODone HCL 50 MG TAB PO SCH (21:09)
[2017-01-21] VITALS (10 sets, daily range): BP systolic 131–149; BP diastolic 52–77; PULSE 92–112; RESP 20–22; TEMP 97.7–98.9; O2SAT 90–94
[2017-01-21] MEDS: ACETAMINOPHEN/HYDROcodone 325 MG/7.5 MG TAB PO PRN ×3 (02:36→10:58)
[2017-01-21] MEDS: CYCLOBENZAPRINE HCL 10 MG TAB PO PRN ×3 (02:36→18:51)
[2017-01-21] MEDS: methylPREDNISolone SOD SUCC 40 MG/1 ML VIAL IV PUSH SCH ×3 (06:26→22:04)
[2017-01-21] MEDS: ISOSORBIDE MONONITRATE 30 MG TAB PO SCH (06:26)
[2017-01-21] MEDS: RESP: ALBUTEROL 2.5 MG/IPRATROPIUM 0.5 MG NEB (SCH) NEB ×3 (07:48→19:14)
[2017-01-21] MEDS: PREGABALIN 25 MG CAP PO SCH (08:16)
[2017-01-21] MEDS: guaiFENesin E.R. 600 MG TAB PO SCH ×2 (08:17→21:00)
[2017-01-21] MEDS: buPROPion HCL 100 MG TAB PO SCH (08:17)
[2017-01-21] MEDS: PANTOPRAZOLE SOD 20 MG DELAYED RELEASE TAB PO SCH (08:17)
[2017-01-21] MEDS: ASPIRIN EC 81 MG TABEC PO SCH (08:18)
[2017-01-21] MEDS: SODIUM CHLORIDE 0.9% FLUSH 10 ML FLUSH IV FLUSH SCH ×2 (08:18→22:03)
[2017-01-21] MEDS: hydrALAZINE HCL 25 MG TAB PO SCH ×3 (08:18→17:52)
[2017-01-21] MEDS: BUDESONIDE-FORMOTEROL 160/4.5 MCG INHALER INH SCH ×2 (08:18→22:06)
[2017-01-21] MEDS: TIOTROPIUM BROMIDE 18 MCG INH INH SCH (08:19)
[2017-01-21] MEDS: NICOTINE 21 MG/24 HR PATCH TD SCH (08:21)
[2017-01-21] MEDS: AZITHROMYCIN 250 MG TAB PO SCH (08:21)
[2017-01-21] MEDS: SPIRONOLACTONE 100 MG TAB PO SCH ×2 (08:29→17:51)
[2017-01-21] MEDS: BUMETANIDE 1 MG TAB PO SCH ×2 (08:29→17:52)
[2017-01-21] MEDS: INSULIN DETEMIR 100 UNITS/ML VIAL SQ SCH ×2 (08:30→22:05)
[2017-01-21] MEDS: INSULIN ASPART SUPPLEMENTAL SCALE SQ SCH ×4 (08:30→21:00)
[2017-01-21 09:53] LABS: BASOPHIL % 0.1 % (0.0-2.0); HEMATOCRIT 40.5 % (39.0-51.0); HEMO FLAGS DIFF FINAL; LYMPH % 9.3 % (9.0-44.0); LYMPHOCYTE # 1.3 TH/MM3 (1.0-4.8); MEAN CELL VOLUME 63.6 FL (80.0-100.0); MEAN CORPUSCULAR HEMOGLOBIN 18.2 PG (27.0-34.0); NEUT % 85.6 % (16.0-70.0); PLATELET COUNT 432 TH/MM3 (150-450); RED BLOOD COUNT 6.36 MIL/MM3 (4.50-5.90); RED CELL DISTRIBUTION WIDTH 20.9 % (11.6-17.2)
[2017-01-21 10:02] LABS: MEAN CORPUSCULAR HGB CONC 28.7 % (32.0-36.0)
[2017-01-21 10:26] LABS: BICARBONATE 37.5 MEQ/L (21.0-32.0)
--- NOTE | 2017-01-21 12:36 | HHI.PR ---
Subjective Remarks Follow-up COPD with respiratory failure 01/20/17-patient seen and examined, reports significant improvement of shortness of breath. Still complains of back pain 01/21/17-patient seen and examined, shortness of breath improving. Patient complains of back pain. Afebrile. Objective Vitals Vital Signs Date Time Temp Pulse Resp B/P (MAP) Pulse Ox O2 Delivery O2 Flow Rate FiO2 01/21/17 09:16 20 01/21/17 08:00 Nasal Cannula 4.00 01/21/17 08:00 98.0 104 20 131/74 (93) 90 01/21/17 07:52 90 Nasal Cannula 3.00 01/21/17 07:26 18 01/21/17 04:00 98.0 104 20 149/52 (84) 94 01/21/17 00:00 98.0 107 20 135/65 (88) 91 01/20/17 20:04 94 Nasal Cannula 3.00 01/20/17 20:00 97.6 70 20 139/64 (89) 95 01/20/17 20:00 90 01/20/17 20:00 Nasal Cannula 4.00 01/20/17 16:00 98.5 94 20 150/74 (99) 91 01/20/17 16:00 91 Nasal Cannula 4.00 I/O 01/20/17 01/20/17 01/20/17 01/21/17 01/21/17 01/21/17 07:00 15:00 23:00 07:00 15:00 23:00 Intake Total 1020 ml 840 ml 480 ml Balance 1020 ml 840 ml 480 ml Intake Oral 1020 ml 840 ml 480 ml # Voids 7 5 2 # Bowel Movements 0 1 Result Diagram: 01/21/17 0751 01/21/17 0751 Imaging Last Impressions Chest X-Ray 01/19/17 1546 Signed Impressions: Service Date/Time: Thursday, January 19, 2017 16:23 - CONCLUSION: 1. Stable bibasilar atelectasis/scarring. 2. No acute abnormality or significant interval change. Alexei Medina MD Objective Remarks GENERAL: NAD SKIN: Warm and dry. Right axilla abscess HEAD: Normocephalic. EYES: No scleral icterus. No injection or drainage. NECK: Supple, trachea midline. No JVD or lymphadenopathy. CARDIOVASCULAR: Regular rate and rhythm without murmurs, gallops, or rubs. RESPIRATORY: Breath sounds equal bilaterally. No accessory muscle use. GASTROINTESTINAL: Abdomen soft, non-tender, nondistended. MUSCULOSKELETAL: No cyanosis, or edema. BACK: Nontender without obvious deformity. No CVA tenderness. A/P Problem List: (1) COPD with respiratory failure, acute ICD Code: J96.00 - Acute respiratory failure, unspecified whether with hypoxia or hypercapnia; J44.9 - Chronic obstructive pulmonary disease, unspecified (2) COPD with exacerbation ICD Code: J44.1 - COPD with exacerbation Status: Acute (3) Chest pain ICD Code: R07.9 - Chest pain Status: Acute (4) Tobacco abuse ICD Code: Z72.0 - Tobacco abuse Status: Chronic Assessment and Plan 56-year-old man with COPD exacerbation with respiratory failure hypercapnia Continue Solu-Medrol 40 mg IV every 8H however will switch to by mouth prednisone tomorrow 01/22/17, continue bronchodilator, Spiriva, Symbicort, Mucinex, azithromycin Flu A and B antigens, urinary legionella and pneumococcal antigens negative Maintain oxygen saturation above 92% Tobacco cessation advised Atypical chest pain ACS ruled out per protocol with serial cardiac enzyme and EKGs Tobacco abuse Tobacco counseling provided Continue nicotine patch Hyperkalemia Resolved Right axilla abscess Wound culture positive for group D enterococcus Diabetes type 2, CAD, hypertension and other chronic medical conditions: Continue outpatient medications DVT prophylaxis: Jose L Telles MD Jan 21, 2017 12:36
[2017-01-21] MEDS: ACETAMINOPHEN/HYDROcodone 325 MG/10 MG TAB PO PRN ×2 (15:04→18:51)
[2017-01-21] MEDS: ENOXAPARIN SODIUM 30 MG/0.3 ML SYRINGE SQ SCH (22:03)
[2017-01-21] MEDS: traZODone HCL 50 MG TAB PO SCH (22:04)
[2017-01-22] MEDS: ACETAMINOPHEN/HYDROcodone 325 MG/10 MG TAB PO PRN ×3 (00:58→12:46)
[2017-01-22] MEDS: CYCLOBENZAPRINE HCL 10 MG TAB PO PRN ×2 (03:43→12:45)
[2017-01-22 04:36] VITALS: BP 131/79; PULSE 107; RESP 20; TEMP 98.3; O2SAT 96
[2017-01-22] MEDS: ISOSORBIDE MONONITRATE 30 MG TAB PO SCH (06:43)
[2017-01-22] MEDS: methylPREDNISolone SOD SUCC 40 MG/1 ML VIAL IV PUSH SCH (06:43)
[2017-01-22] MEDS: RESP: ALBUTEROL 2.5 MG/IPRATROPIUM 0.5 MG NEB (SCH) NEB ×2 (07:50→12:55)
[2017-01-22 07:52] VITALS: O2SAT 94
[2017-01-22 08:00] VITALS: BP 141/76; PULSE 92; RESP 20; TEMP 98; O2SAT 93
[2017-01-22] MEDS: INSULIN DETEMIR 100 UNITS/ML VIAL SQ SCH (09:00)
[2017-01-22] MEDS: buPROPion HCL 100 MG TAB PO SCH (09:02)
[2017-01-22] MEDS: PANTOPRAZOLE SOD 20 MG DELAYED RELEASE TAB PO SCH (09:02)
[2017-01-22] MEDS: AZITHROMYCIN 250 MG TAB PO SCH (09:03)
[2017-01-22] MEDS: hydrALAZINE HCL 25 MG TAB PO SCH ×2 (09:03→12:45)
[2017-01-22] MEDS: ASPIRIN EC 81 MG TABEC PO SCH (09:03)
[2017-01-22] MEDS: guaiFENesin E.R. 600 MG TAB PO SCH (09:03)
[2017-01-22] MEDS: NICOTINE 21 MG/24 HR PATCH TD SCH (09:04)
[2017-01-22] MEDS: PREGABALIN 25 MG CAP PO SCH (09:04)
[2017-01-22] MEDS: BUDESONIDE-FORMOTEROL 160/4.5 MCG INHALER INH SCH (09:06)
[2017-01-22] MEDS: SPIRONOLACTONE 100 MG TAB PO SCH (09:06)
[2017-01-22] MEDS: BUMETANIDE 1 MG TAB PO SCH (09:06)
[2017-01-22] MEDS: TIOTROPIUM BROMIDE 18 MCG INH INH SCH (09:06)
[2017-01-22] MEDS: INSULIN ASPART SUPPLEMENTAL SCALE SQ SCH ×2 (09:07→12:00)
[2017-01-22] MEDS: SODIUM CHLORIDE 0.9% FLUSH 10 ML FLUSH IV FLUSH SCH (09:09)
--- NOTE | 2017-01-22 10:08 | HHI.FPPN ---
Objective Vitals Vital Signs Date Time Temp Pulse Resp B/P (MAP) Pulse Ox O2 Delivery O2 Flow Rate FiO2 01/22/17 07:52 94 Nasal Cannula 3.00 01/22/17 04:36 98.3 107 20 131/79 (96) 96 01/22/17 04:00 Nasal Cannula 4.00 01/22/17 00:00 Nasal Cannula 4.00 01/21/17 23:48 98.1 100 22 143/65 (91) 91 01/21/17 20:10 Nasal Cannula 4.00 01/21/17 20:10 98.9 103 20 132/63 (86) 91 01/21/17 20:00 92 01/21/17 19:17 92 Nasal Cannula 3.00 01/21/17 16:04 18 01/21/17 16:00 98.4 96 20 149/77 (101) 93 01/21/17 12:00 97.7 112 20 142/67 (92) 91 I/O 01/21/17 01/21/17 01/21/17 01/22/17 01/22/17 01/22/17 07:00 15:00 23:00 07:00 15:00 23:00 Intake Total 480 ml 1200 ml 480 ml Balance 480 ml 1200 ml 480 ml Intake Oral 480 ml 1200 ml 480 ml # Voids 2 4 3 # Bowel Movements 0 Result Diagram: 01/21/17 07501/21/17 075 Jozef Gilliland MD Jan 22, 2017 10:08
[2017-01-22] MEDS ORDERED: AUGM875T3 PO (10:27)
--- NOTE | 2017-01-22 10:28 | HHI.DCPOC ---
Discharge Care Plan Diagnosis: (1) Abscess (2) Hyperglycemia (3) Leukocytosis (4) Coronary artery disease (5) Dyslipidemia (6) NICOTINE DEPENDENCE, OTH TOBACCO PRODUCT, W OTH DISORDERS (7) Pneumonia (8) COPD (chronic obstructive pulmonary disease) Your Health Problems Are: Inflammation Swelling Goals to Promote Your Health * To prevent worsening of your condition and complications * To maintain your health at the optimal level Directions to Meet Your Goals Take your medications as prescribed Follow your dietary instruction Follow activity as directed Keep your appointments as scheduled Take your immunizations and boosters as scheduled If your symptoms worsen call your PCP, if no PCP go to Urgent Care Center or Emergency Room Smoking is Dangerous to Your Health. Avoid second hand smoke Call the 24-hour hour crisis hotline for domestic abuse at Jozef Gilliland MD Jan 22, 2017 10:28
--- NOTE | 2017-01-22 10:29 | HHI.DS ---
Discharge Summary Admission Date Jan 19, 2017 at 18:15 Discharge Date: Jan 22, 2017 Admitting Diagnosis COPD exacerbation, chest pain, tobaccoism. (1) COPD with respiratory failure, acute ICD Codes: J96.00 - Acute respiratory failure, unspecified whether with hypoxia or hypercapnia; J44.9 - Chronic obstructive pulmonary disease, unspecified (2) COPD with exacerbation ICD Codes: J44.1 - COPD with exacerbation Status: Acute (3) Chest pain ICD Codes: R07.9 - Chest pain Status: Acute (4) Tobacco abuse ICD Codes: Z72.0 - Tobacco abuse Status: Chronic CBC/BMP: 01/21/17 0751 01/21/17 0751 Significant Findings Laboratory Tests Test 01/19/17 15:50 01/19/17 16:12 01/19/17 21:50 01/20/17 03:55 White Blood Count 13.5 TH/MM3 (4.0-11.0) 11.3 TH/MM3 (4.0-11.0) Hemoglobin 10.5 GM/DL (13.0-17.0) 11.2 GM/DL (13.0-17.0) Hematocrit 36.3 % (39.0-51.0) Mean Corpuscular Volume 62.5 FL (80.0-100.0) 63.8 FL (80.0-100.0) Mean Corpuscular Hemoglobin 18.1 PG (27.0-34.0) 18.2 PG (27.0-34.0) Mean Corpuscular Hemoglobin Concent 28.9 % (32.0-36.0) 28.6 % (32.0-36.0) Red Cell Distribution Width 20.8 % (11.6-17.2) 20.8 % (11.6-17.2) Neutrophils (%) (Auto) 71.6 % (16.0-70.0) 93.6 % (16.0-70.0) Monocytes (%) (Auto) 11.1 % (0.0-8.0) Neutrophils # (Auto) 9.7 TH/MM3 (1.8-7.7) 10.6 TH/MM3 (1.8-7.7) Monocytes # (Auto) 1.5 TH/MM3 (0-0.9) Blood Urea Nitrogen 23 MG/DL (7-18) 26 MG/DL (7-18) Random Glucose 283 MG/DL (74-106) 312 MG/DL (74-106) Aspartate Amino Transf (AST/SGOT) 5 U/L (15-37) 8 U/L (15-37) Sodium Level 131 MEQ/L (136-145) 132 MEQ/L (136-145) Chloride Level 93 MEQ/L (98-107) 92 MEQ/L (98-107) Carbon Dioxide Level 35.1 MEQ/L (21.0-32.0) 33.9 MEQ/L (21.0-32.0) Anion Gap 3 MEQ/L (5-15) Estimat Glomerular Filtration Rate 81 ML/MIN (>89) 65 ML/MIN (>89) Total Creatine Kinase 16 U/L (39-308) 24 U/L (39-308) 18 U/L (39-308) Troponin I LESS THAN 0.02 NG/ML LESS THAN 0.02 NG/ML LESS THAN 0.02 NG/ML B-Type Natriuretic Peptide 135 PG/ML (0-100) Blood Gas HCO3 35 mmol/L (22-26) Blood Gas Base Excess 9.1 mmol/L (-2-2) Blood Gas Oxygen Saturation 85 % (90-100) Arterial Blood pH 7.33 (7.380-7.420) Arterial Blood Partial Pressure CO2 68 mmHg (38-42) Arterial Blood Carboxyhemoglobin 6.6 % (0-4) Blood Gas Hemoglobin 10.7 G/DL (12.0-16.0) Red Blood Count 6.16 MIL/MM3 (4.50-5.90) Lymphocytes (%) (Auto) 4.5 % (9.0-44.0) Lymphocytes # (Auto) 0.5 TH/MM3 (1.0-4.8) Potassium Level 5.2 MEQ/L (3.5-5.1) Test 01/21/17 07:51 White Blood Count 14.0 TH/MM3 (4.0-11.0) Red Blood Count 6.36 MIL/MM3 (4.50-5.90) Hemoglobin 11.6 GM/DL (13.0-17.0) Mean Corpuscular Volume 63.6 FL (80.0-100.0) Mean Corpuscular Hemoglobin 18.2 PG (27.0-34.0) Mean Corpuscular Hemoglobin Concent 28.7 % (32.0-36.0) Red Cell Distribution Width 20.9 % (11.6-17.2) Neutrophils (%) (Auto) 85.6 % (16.0-70.0) Neutrophils # (Auto) 12.0 TH/MM3 (1.8-7.7) Blood Urea Nitrogen 32 MG/DL (7-18) Random Glucose 203 MG/DL (74-106) Sodium Level 130 MEQ/L (136-145) Chloride Level 89 MEQ/L (98-107) Carbon Dioxide Level 37.5 MEQ/L (21.0-32.0) Anion Gap 4 MEQ/L (5-15) Estimat Glomerular Filtration Rate 82 ML/MIN (>89) PE at Discharge GENERAL: SKIN: Warm and dry. HEAD: Atraumatic. Normocephalic. EYES: Pupils equal and round. No scleral icterus. No injection or drainage. ENT: No nasal bleeding or discharge. Mucous membranes pink and moist. NECK: Trachea midline. No JVD. CARDIOVASCULAR: Regular rate and rhythm. RESPIRATORY: No accessory muscle use. Clear to auscultation. Breath sounds equal bilaterally. GASTROINTESTINAL: Abdomen soft, non-tender, nondistended. Hepatic and splenic margins not palpable. MUSCULOSKELETAL: Extremities without clubbing, cyanosis, or edema. No obvious deformities. NEUROLOGICAL: Awake and alert. No obvious cranial nerve deficits. Motor grossly within normal limits. Five out of 5 muscle strength in the arms and legs. Normal speech. PSYCHIATRIC: Appropriate mood and affect; insight and judgment normal. Hospital Course 56-year-old man with COPD exacerbation with respiratory failure hypercapnia Continue Solu-Medrol 40 mg IV every 8H however will switch to by mouth prednisone tomorrow 01/22/17, continue bronchodilator, Spiriva, Symbicort, Mucinex, azithromycin Flu A and B antigens, urinary legionella and pneumococcal antigens negative Maintain oxygen saturation above 92% Tobacco cessation advised Atypical chest pain ACS ruled out per protocol with serial cardiac enzyme and EKGs Tobacco abuse Tobacco counseling provided Continue nicotine patch Hyperkalemia Resolved Right axilla abscess Wound culture positive for group D enterococcus Diabetes type 2, CAD, hypertension and other chronic medical conditions: Continue outpatient medications Discharge Disposition: Disch w/ Home Health Serv Discharge Instructions DIET: Follow Instructions for: Heart Healthy Diet, Diabetic Diet Activities you can perform: Regular-No Restrictions New Medications: Amoxicillin-Clavulanate (Augmentin) 875-125 Mg Tab 1 TAB PO BID for Infection for 10 Days, #20 TAB 0 Refills Continued Medications: Albuterol 18 GM Inh (Ventolin Hfa 18 GM Inh) 90 Mcg/Act Aer 1 PUFF INH Q4H PRN for MILD/MODERATE SOB/WHEEZING, #1 INHALER [address] (Aspirin DR) 81 Mg Tabdr 81 MG PO DAILY, TAB 0 Refills Bisacodyl Supp (Dulcolax Supp) 10 Mg Supp 10 MG RECTAL DAILY PRN for CONSTIPATION, #12 SUPP 0 Refills Bumetanide (Bumetanide) 2 Mg Tab 2 MG PO BID for EDEMA for 90 Days, TAB 9 Refills Bupropion HCl (Bupropion HCl) 100 Mg Tab 100 MG PO DAILY for Control Depression, TAB 0 Refills Fluticasone-Salmeterol Inh (Advair Diskus Inh) 250-50 Mcg/Blist Aer 2 PUFF INH BID, #1 INHALER 0 Refills Rinse mouth after use. Hydralazine HCl (Hydralazine HCl) 25 Mg Tablet 25 MG PO TID for Blood Pressure Management, #90 TAB 0 Refills Insulin Glargine Inj (Lantus Inj) 1,000 Unit/10 Ml Vial 80 UNITS SQ BID for Blood Sugar Management, VIAL 0 Refills Ipratropium-Albuterol Neb (Duoneb) 0.5-2.5 Mg/3 Ml Neb 1 NEBULE NEB Q4HR NEB PRN for SHORTNESS OF BREATH, #30 NEBULE 0 Refills Isosorbide Mononitrate ER (Isosorbide Mononitrate ER) 30 Mg Alexsander 30 MG PO DAILY for Prevent Chest Pain, #30 TAB 0 Refills Omeprazole (Omeprazole) 20 Mg Tab 20 MG PO DAILY, #30 TAB 0 Refills Oxygen (O2) (Oxygen (O2)) Device 2 LITER JACQUELINE.CANULA CONTINUOUS for Prevent Hypoxemia, #2 CYLINDER Oxygen Concentrator Portable Gaseous 2 L/min via Nasal Canula Continuous For 99 months Oxygen tank (Oxygen tank) 1 Ea Tank 2 LITER JACQUELINE.CANULA CONTINUOUS for HYPOXEMIA PREVENTION, #1 CYLINDER Oxygen Concentrator Portable Gaseous 2 L/min via Nasal Cannula Continuous For 99 months Pregabalin (Lyrica) 50 Mg Cap 50 MG PO DAILY, #30 CAP 0 Refills Sennosides-Docusate Sodium (Senna S) 8.6-50 Mg Tab 1-2 TAB PO Q12HR PRN for CONSTIPATION Spironolactone (Spironolactone) 100 Mg Tab 100 MG PO BID, #60 TAB 0 Refills Tramadol (Tramadol) 50 Mg Tab 50 MG PO Q4H PRN for PAIN, TAB 0 Refills Trazodone (Trazodone) 50 Mg Tab 50 MG PO HS for Control Depression, #30 TAB 0 Refills Jozef Gilliland MD Jan 22, 2017 10:29
--- NOTE | 2017-01-22 10:31 | HHI.FF ---
Face to Face Verification Diagnosis: (1) DVT prophylaxis (2) ESSENTIAL (PRIMARY) HYPERTENSION (3) Acute exacerbation of chronic obstructive pulmonary disease (COPD) (4) Chronic airway obstruction, not elsewhere classified (5) Constipation (6) Pneumonia (7) Leukocytosis (8) Abscess (9) Coronary artery disease (10) Chest pain (11) Tobacco abuse Physical Therapy Order: Evaluate and Treat, Improve ambulation, Strength and gait training Home Health Nursing Order: Medical education Diabetic education CHF education Oxygen administration education Medication education-adverse effect Wound care and dressing changes Nursing assessment with vital signs Telehealth Home Health Aide Order: To Assist In: Bathing and personal care, mandarin teacher and meal prep Bow Making Machine Operator Order: To Evaluate: Living conditions/environment, Support services Order: To Provide: Long range planning, Community services I have seen patient Madan Guerra on 01/22/17. My clinical findings support the need for the requested home health care services because: Ltd mobility - disease progression Patient has SOB Deconditioned w/ increased weakness Med compliance is questionable Limited ability to care for self Need for psychosocial assistance Impaired cognition/judgement High risk of falls Infection w/ risk of complications I certify that my clinical findings support that this patient is homebound because: Impaired cognitive ability/safety Hx COPD- exertion dyspnea/weakness Unsteady gait/balance Unsafe to leave home unassisted Need for psychosocial assistance Unable to use public transportation Poor cardiac reserve Jozef Gilliland MD Jan 22, 2017 10:31
[2017-01-22 12:00] VITALS: BP 142/71; PULSE 100; RESP 20; TEMP 97.1; O2SAT 93
== END 2017-01-22 13:09 | disposition home health service (06) | DRG 189 ==
LOC: NEPC 15:24 → NEDA 18:15 → N04B 18:57
PROVIDERS: ADMIT Hospitalist; ATTEND Hospitalist
PROC: 3E0F7GC Introduction of Other Therapeutic Substance into Respiratory Tract, Via Natural or Artificial Opening (ICD-10-PCS; principal; 2017-01-19)
DX: J96.02 Acute respiratory failure with hypercapnia (principal); J44.1 Chronic obstructive pulmonary disease with (acute) exacerbation; I11.0 Hypertensive heart disease with heart failure; J44.0 Chronic obstructive pulmonary disease with (acute) lower respiratory infection; I50.9 Heart failure, unspecified; L02.411 Cutaneous abscess of right axilla; F41.9 Anxiety disorder, unspecified; F17.210 Nicotine dependence, cigarettes, uncomplicated; Z79.01 Long term (current) use of anticoagulants; Z79.82 Long term (current) use of aspirin; E11.65 Type 2 diabetes mellitus with hyperglycemia; E78.5 Hyperlipidemia, unspecified; I25.10 Atherosclerotic heart disease of native coronary artery without angina pectoris; K21.9 Gastro-esophageal reflux disease without esophagitis; Z79.4 Long term (current) use of insulin; G47.33 Obstructive sleep apnea (adult) (pediatric); Z79.899 Other long term (current) drug therapy; E87.5 Hyperkalemia; M54.9 Dorsalgia, unspecified
CPT/HCPCS: 36600; 71010; 80048; 80053; 82550; 82805; 82948; 83880; 84484; 85025; 85610; 85730; 86403; 87070; 87077; 87186; 87205; 87449; 93005; 94640; 94664; 96374; J1650; J1815; J2270; J2920; J7613

== ENCOUNTER 2017-03-12 14:25 | Inpatient (IN) | payer OTHER ==
[~2017-03-12] VITALS: Ht 177.8 cm; Wt 122.0 kg
[~2017-03-12 14:25] MED LIST changes: -ASPI81TA5 PO; +AUGM875T3 PO; -AZIT250T3 PO; +ECASA81 PO; -FOLI800T PO; -HYDR-3535 PO; -LORA-373 PO; -LORA1TAB12 PO; +LYRI50CA PO; -MILKSUS PO; -MORP20SO2 PO; -OMEP20TA PO; +OMEP20TA93 PO; +TRAM50TA PO; +TRAZ50TA12 PO
[2017-03-12 14:30] VITALS: BP 128/60; PULSE 124; RESP 28; TEMP 98.5; O2SAT 87
[2017-03-12 14:38] VITALS: BP 135/68; PULSE 96; RESP 16; TEMP 98.8; O2SAT 80
--- NOTE | 2017-03-12 15:14 | PD ---
HPI Chief Complaint: throat pain Time Seen by Provider: 14:58 Travel History International Travel<30 days: No Contact w/Intl Traveler<30days: No Traveled to known affect area: No History of Present Illness HPI 57-year-old male with PMH of COPD presents to the ED for evaluation of sore throat, swollen throat feeling 2 weeks. He endorses worsening shortness of breath over the same period of time. He endorses chronic nonproductive cough, no worse today. He endorses pleuritic chest pain associated with the coughing. The patient denies fever or chills. He denies difficulties swallowing liquids or solids. He states that the pain and swollen throat feeling are intermittent. He states that he had an episode this morning that felt like "a hand full of sand spurs in my throat" which caused a lot of coughing and pain. He denies hemoptysis,hematemesis. This caused him to seek treatment today. He has a upper endoscopy scheduled in March. He is noncompliant with CPAP at night. He uses 2 L oxygen nasal cannula at home. He is followed by Dr. Gilliland. [facility] Past Medical History Hx Anticoagulant Therapy: Yes (ASPIRIN) Arthritis: No Asthma: Yes Autoimmune Disease: No Blood Disorders: No Anxiety: Yes Depression: No Heart Rhythm Problems: No Cancer: No Cardiac Catheterization: Yes Cardiovascular Problems: Yes (CHF, HTN) High Cholesterol: Yes Chest Pain: Yes Congestive Heart Failure: Yes COPD: Yes Cerebrovascular Accident: No Coronary Artery Disease: No Diabetes: Yes Patient Takes Glucophage: No Diminished Hearing: No Endocrine: Yes Gastrointestinal Disorders: Yes GERD: Yes Genitourinary: No Headaches: No Hiatal Hernia: No Hypertension: Yes Immune Disorder: No Implanted Vascular Access Dvce: No Musculoskeletal: Yes Neurologic: Yes Psychiatric: Yes Reproductive: No Respiratory: Yes (COPD) Migraines: No Seizures: Yes Sleep Apnea: Yes Thyroid Disease: No Ulcer: No Past Surgical History Abdominal Surgery: No Coronary Artery Bypass Graft: No Other Surgery: Yes (wart removed right leg) Social History Alcohol Use: No Tobacco Use: Yes (04/17 PPD) Substance Use: No Allergies-Medications (Allergen,Severity, Reaction): Coded Allergies: No Known Allergies (Verified Allergy, Unknown, 03/12/17) Reported Meds & Prescriptions Reported Meds & Active Scripts Active Oxygen (O2) Device 2 Liter JACQUELINE.CANULA CONTINUOUS Oxygen Concentrator Portable Gaseous 2 L/min via Nasal Canula Continuous For 99 months Oxygen tank (Oxygen) 1 Ea Tank 2 Liter JACQUELINE.CANULA CONTINUOUS Oxygen Concentrator Portable Gaseous 2 L/min via Nasal Cannula Continuous For 99 months Bumetanide 2 Mg Tab 2 Mg PO BID 90 Days Reported Lyrica (Pregabalin) 50 Mg Cap 50 Mg PO DAILY Tramadol (Tramadol HCl) 50 Mg Tab 50 Mg PO Q4H PRN Trazodone (Trazodone HCl) 50 Mg Tab 50 Mg PO HS Spironolactone 100 Mg Tab 100 Mg PO BID Ventolin Hfa 18 GM Inh (Albuterol Sulfate) 90 Mcg/Act Aer 1 Puff INH Q4H PRN Dulcolax Supp (Bisacodyl) 10 Mg Supp 10 Mg RECTAL DAILY PRN Senna S (Sennosides-Docusate Sodium) 8.6-50 Mg Tab 1-2 Tab PO Q12HR PRN Omeprazole 20 Mg Tab 20 Mg PO DAILY Lantus Inj (Insulin Glargine) 1,000 Unit/10 Ml Vial 80 Units SQ BID Advair Diskus Inh (Fluticasone-Salmeterol Inh) 250-50 Mcg/Blist Aer 2 Puff INH BID Rinse mouth after use. Aspirin DR (Aspirin) 81 Mg Tabdr 81 Mg PO DAILY Hydralazine HCl 25 Mg Tablet 25 Mg PO TID Isosorbide Mononitrate ER (Isosorbide Mononitrate) 30 Mg Alexsander 30 Mg PO DAILY Duoneb (Ipratropium-Albuterol Neb) 0.5-2.5 Mg/3 Ml Neb 1 Nebule NEB Q4HR NEB PRN Bupropion HCl 100 Mg Tab 100 Mg PO DAILY Review of Systems Except as stated in HPI: all other systems reviewed are Neg Physical Exam Narrative GENERAL: Well-nourished, well-developed obese white male in no acute distress. SKIN: Warm and dry. HEAD: Normocephalic. Atraumatic. EYES: No scleral icterus. No injection or drainage. PERRLA. EOMI. ENT: Pearly rueda tympanic membranes bilaterally. Nasal mucosa is moist. Oropharynx without erythema, edema or exudate. Uvula midline. Airway. NECK: Supple, trachea midline. No JVD or lymphadenopathy. CARDIOVASCULAR: Regular rate and rhythm without murmurs, gallops, or rubs. RESPIRATORY: Diffuse end expiratory wheezing bilaterally. No accessory muscle use. GASTROINTESTINAL: Abdomen soft, protuberant, non-tender, nondistended. + Bowel sounds RECTAL EXAM: No masses or tenderness, stool is brown. Guaiac negative MUSCULOSKELETAL: No cyanosis, or edema. Mild, poorly demarcated erythema to the mid lopez bilaterally. No warmth, edema noted. Patient states this is chronic. BACK: Nontender without obvious deformity. No CVA tenderness. Data Data Last Documented VS Vital Signs Date Time Temp Pulse Resp B/P (MAP) Pulse Ox O2 Delivery O2 Flow Rate FiO2 03/12/17 18:51 95 16 138/67 (90) 90 Nasal Cannula 3.00 03/12/17 14:38 98.8 Orders Orders Electrocardiogram (03/12/17 ) Complete Blood Count With Diff (03/12/17 15:07) Comprehensive Metabolic Panel (03/12/17 15:07) B-Type Natriuretic Peptide (03/12/17 15:07) Act Partial Throm Time (Ptt) (03/12/17 15:07) Prothrombin Time / Inr (Pt) (03/12/17 15:07) Magnesium (Mg) (03/12/17 15:07) Ckmb (Isoenzyme) Profile (03/12/17 15:07) Troponin I (03/12/17 15:07) Urinalysis - C+S If Indicated (03/12/17 15:07) Iv Access Insert/Monitor (03/12/17 15:07) Ecg Monitoring (03/12/17 15:07) Oximetry (03/12/17 15:07) Oxygen Administration (03/12/17 15:07) Chest, Single Ap (03/12/17 15:07) Sodium Chloride 0.9% Flush (Ns Flush) (03/12/17 15:15) Methylprednisolone So Succ Inj (Solumedr (03/12/17 15:15) Albuterol-Ipratropium Neb (Duoneb Neb) (03/12/17 15:15) Soft Tissue Neck (03/12/17 ) Group A Rapid Strep Screen (03/12/17 15:07) Influenzae A/B Antigen (03/12/17 15:07) Al-Mag Hy-Si 40-40-4 Mg/Ml Liq (Mag-Al P (03/12/17 15:45) Lidocaine 2% Viscous (Xylocaine 2% Visco (03/12/17 15:45) Ct Soft Tiss Neck W Iv Cont (03/12/17 16:24) Strep Culture (Group A) (03/12/17 16:00) Iohexol 350 Inj (Omnipaque 350 Inj) (03/12/17 17:50) Piperacil-Tazo 4.5 Gm Premix (Zosyn 4.5 (03/12/17 19:00) Sodium Chlor 0.9% 1000 Ml Inj (Ns 1000 M (03/12/17 19:00) Hydromorphone Pf Inj (Dilaudid Pf Inj) (03/12/17 19:00) Admit Order (Ed Use Only) (03/12/17 19:09) Labs Laboratory Tests Test 03/12/17 15:00 03/12/17 16:20 White Blood Count 15.6 TH/MM3 Red Blood Count 5.45 MIL/MM3 Hemoglobin 9.9 GM/DL Hematocrit 34.2 % Mean Corpuscular Volume 62.7 FL Mean Corpuscular Hemoglobin 18.1 PG Mean Corpuscular Hemoglobin Concent 28.8 % Red Cell Distribution Width 20.9 % Platelet Count 365 TH/MM3 Mean Platelet Volume 8.2 FL Neutrophils (%) (Auto) 74.8 % Lymphocytes (%) (Auto) 15.1 % Monocytes (%) (Auto) 7.6 % Eosinophils (%) (Auto) 1.9 % Basophils (%) (Auto) 0.6 % Neutrophils # (Auto) 11.7 TH/MM3 Lymphocytes # (Auto) 2.4 TH/MM3 Monocytes # (Auto) 1.2 TH/MM3 Eosinophils # (Auto) 0.3 TH/MM3 Basophils # (Auto) 0.1 TH/MM3 CBC Comment DIFF FINAL Differential Comment Prothrombin Time 10.6 SEC Prothromb Time International Ratio 1.0 RATIO Activated Partial Thromboplast Time 29.0 SEC Blood Urea Nitrogen 30 MG/DL Creatinine 1.09 MG/DL Random Glucose 126 MG/DL Total Protein 6.7 GM/DL Albumin 3.6 GM/DL Calcium Level 8.6 MG/DL Magnesium Level 1.6 MG/DL Alkaline Phosphatase 84 U/L Aspartate Amino Transf (AST/SGOT) 16 U/L Alanine Aminotransferase (ALT/SGPT) 22 U/L Total Bilirubin 0.3 MG/DL Sodium Level 130 MEQ/L Potassium Level 4.2 MEQ/L Chloride Level 90 MEQ/L Carbon Dioxide Level 33.8 MEQ/L Anion Gap 6 MEQ/L Estimat Glomerular Filtration Rate 70 ML/MIN Total Creatine Kinase 26 U/L Troponin I LESS THAN 0.02 NG/ML B-Type Natriuretic Peptide 228 PG/ML Urine Color YELLOW Urine Turbidity CLEAR Urine pH 5.5 Urine Specific Hammond 1.012 Urine Protein NEG mg/dL Urine Glucose (UA) NEG mg/dL Urine Ketones NEG mg/dL Urine Occult Blood NEG Urine Nitrite NEG Urine Bilirubin NEG Urine Urobilinogen LESS THAN 2.0 MG/DL Urine Leukocyte Esterase NEG Urine WBC LESS THAN 1 /hpf Microscopic Urinalysis Comment CULT NOT INDICATED MDM Medical Decision Making Medical Screen Exam Complete: Yes Emergency Medical Condition: Yes Differential Diagnosis COPD exacerbation versus GERD versus Chayo Mcgregor tear versus esophageal injury versus PNA versus influenza versus pharyngitis versus other Narrative Course 57-year-old male with PMH of COPD presents to the ED for evaluation of sore throat, SOB. The patient denies fever or chills. He denies difficulties swallowing liquids or solids. He had an episode this morning that felt like "a hand full of sand spurs in my throat" which caused a lot of coughing and pain. He denies hemoptysis,hematemesis. He has a upper endoscopy scheduled in March. He is noncompliant with CPAP at night. He uses 2 L oxygen nasal cannula at home. He is followed by Dr. Gilliland. Patient's afebrile, pulse 124, respiratory rate 28, 87% on 4 L nasal cannula on arrival. Physical exam reveals an obese white male in no acute distress. ENT exam is unremarkable. Abdomen is soft and nontender. Chronic skin changes in the bilateral lower extremities. Guaiac negative on rectal exam. IV was established. Patient was administered a GI cocktail, duo nebs 3 and IV Solu-Medrol. EKG: rate 99, sinus rhythm. [place] interval 152, QRS 94, QTC 410 ms. Borderline RAD. Reviewed by Dr. Titus CXR: no acute disease Cardiac enzymes negative x 1 Strep and flu swabs negative. WBC 15.6 with left shift. Hemoglobin 9.9. Sodium 1:30, chloride 90. BUN 30, creatinine 1.09. BNP 222. UA: No culture indicated. Soft tissue of the neck x-ray questionable subcutaneous emphysema. CT of the neck nothing acute. Patient still complaining of pain and was administered 0.5 mg of Dilaudid. I discussed the patient with who recommends IV Zosyn and admission for COPD exacerbation and to evaluate for possible esophageal tear. The patient is agreeable to this plan. I spoke with Dr. Riley who agrees to accept the patient to the medicine service. Please see medicine notes for disposition. [facility] Point of Care Internal Pos. & Neg. Controls: Passed Fecal Specimen Occult Blood: Negative Nina Lozada Mar 12, 2017 15:14
[2017-03-12] MEDS ORDERED: methylPREDNISolone SOD SUCC 125 MG/2 ML VIAL IV PUSH ONE (15:15)
[2017-03-12] MEDS ORDERED: SODIUM CHLORIDE 0.9% FLUSH 10 ML FLUSH IVF PRN (15:15)
[2017-03-12] MEDS ORDERED: ALUMINUM/MAGNESIUM/SIMETH 30 ML CUP PO ONE (15:45)
[2017-03-12] MEDS ORDERED: LIDOCAINE VISCOUS 2% SOLN 15 ML UDC PO ONE (15:45)
[2017-03-12 15:49] LABS: AUTOMATED NEUTROPHIL # 11.7 TH/MM3 (1.8-7.7); BASOPHIL # 0.1 TH/MM3 (0-0.2); BASOPHIL % 0.6 % (0.0-2.0); EOSINOPHIL # 0.3 TH/MM3 (0-0.4); EOSINOPHIL % 1.9 % (0.0-4.0); HEMATOCRIT 34.2 % (39.0-51.0); HEMO FLAGS DIFF FINAL; LYMPH % 15.1 % (9.0-44.0); LYMPHOCYTE # 2.4 TH/MM3 (1.0-4.8); MEAN CELL VOLUME 62.7 FL (80.0-100.0); MEAN CORPUSCULAR HEMOGLOBIN 18.1 PG (27.0-34.0); MONO % 7.6 % (0.0-8.0); NEUT % 74.8 % (16.0-70.0); PLATELET COUNT 365 TH/MM3 (150-450); RED BLOOD COUNT 5.45 MIL/MM3 (4.50-5.90); RED CELL DISTRIBUTION WIDTH 20.9 % (11.6-17.2); WHITE BLOOD COUNT 15.6 TH/MM3 (4.0-11.0)
[2017-03-12 15:56] LABS: MEAN CORPUSCULAR HGB CONC 28.8 % (32.0-36.0)
[2017-03-12 15:57] LABS: PROTHROMBIN TIME - PATIENT 10.6 SEC (9.8-11.6)
[2017-03-12 15:58] VITALS: O2SAT 94
[2017-03-12] MEDS: RESP: ALBUTEROL 2.5 MG/IPRATROPIUM 0.5 MG NEB (SCH) INH (16:00)
--- NOTE | 2017-03-12 16:06 | RADRPT ---
EXAM DATE/TIME: 03/12/2017 15:29 [facility] COMPARISON: CHEST SINGLE AP, January 19, 2017, 16:23. INDICATIONS : Chest pain and short of breath. MEDICAL HISTORY : Chronic obstructive pulmonary disease. Congestive heart failure. Hypertension. Diabetes SURGICAL HISTORY : None. ENCOUNTER: Initial ACUITY: 1 month PAIN SCORE: 10/10 LOCATION: Bilateral chest FINDINGS: 2 frontal views of the chest demonstrate the lungs to be symmetrically aerated without evidence of ma ss, infiltrate or effusion. The cardiomediastinal contours are unremarkable. Osseous structures are intact. CONCLUSION: No acute disease. Jose Tim Jr., MD on March 12, 2017 at 16:02 Board Certified Radiologist. This report was verified electronically.
--- NOTE | 2017-03-12 16:13 | RADRPT ---
EXAM DATE/TIME: 03/12/2017 15:34 [facility] COMPARISON: CHEST SINGLE AP, March 12, 2017, 15:29. INDICATIONS : Neck pain and short of breath. MEDICAL HISTORY : Chronic obstructive pulmonary disease. Hypertension Congestive heart failure. Diabetes SURGICAL HISTORY : None. ENCOUNTER: Initial ACUITY: 1 month PAIN SCORE: 10/10 LOCATION: Bilateral Neck FINDINGS: Cervical spine is evaluated to C6. Alignment is anatomic. Fracture is not appreciated. I cannot ex clude subjacent emphysema. Review of chest x-ray reveals no pneumomediastinum CONCLUSION: Limited exam. Subcutaneous emphysema cannot be entirely excluded. Mario Pablo MD FACR on March 12, 2017 at 16:09 Board Certified Radiologist. This report was verified electronically.
[2017-03-12 16:20] LABS: ALT (GPT) 22 U/L (12-78); ANION GAP 6 MEQ/L (5-15); AST (GOT) 16 U/L (15-37); BICARBONATE 33.8 MEQ/L (21.0-32.0); BLOOD UREA NITROGEN 30 MG/DL (7-18); CHLORIDE 90 MEQ/L (98-107); GLOMERULAR FILTRATION RATE 70 ML/MIN (>89); MAGNESIUM 1.6 MG/DL (1.5-2.5); POTASSIUM 4.2 MEQ/L (3.5-5.1); SODIUM (NA) 130 MEQ/L (136-145)
[2017-03-12 16:24] LABS: ALKALINE PHOSPHATASE 84 U/L (45-117); TOTAL BILIRUBIN ADULT 0.3 MG/DL (0.2-1.0)
[2017-03-12 16:34] LABS: CREATINE KINASE 26 U/L (39-308)
[2017-03-12 16:52] LABS: BLOOD, URINE NEG (NEG); GLUCOSE,URINE NEG (NEG); KETONE, URINE NEG (NEG); NITRITE,URINE NEG (NEG); PH, URINE 5.5 (5.0-8.5); URINE COLOR YELLOW (YELLW/STRAW)
[2017-03-12 16:54] LABS: COMMENT (UR) CULT NOT INDICATED; CULTURE IF INDICATED CULT NOT INDICATED
[2017-03-12] MEDS ORDERED: IOHEXOL 350 MG/ML 10 ML VIAL (for RAD DIAG) IVCONTRAST ONE (17:50)
--- NOTE | 2017-03-12 18:45 | RADRPT ---
EXAM DATE/TIME: 03/12/2017 17:48 [facility] COMPARISON: No previous studies available for comparison. INDICATIONS : Neck swelling and pain. IV CONTRAST: 75 cc Omnipaque 350 (iohexol) IV RADIATION DOSE: 33.04 CTDIvol (mGy) MEDICAL HISTORY : Seizures. Hypertension. Cardiovascular disease SURGICAL HISTORY : None. ENCOUNTER: Initial ACUITY: 2 weeks PAIN SCALE: 5/10 LOCATION: Bilateral neck TECHNIQUE: Volumetric scanning of the neck was performed. Using automated exposure control and adjustment of th e mA and/or kV according to patient size, radiation dose was kept as low as reasonably achievable to obtain optimal diagnostic quality images. DICOM format image data is available electronically for r eview and comparison. FINDINGS: NASOPHARYNX: The nasopharyngeal airway has a normal configuration. No mucosal thickening or mass is seen. OROPHARYNX: The intrinsic muscles of the tongue are symmetric. The tonsillar pillars are intact. The prevertebr al soft tissues are not thickened. LARYNX: The supraglottic, glottic, and infraglottic structures are intact. PARAPHARYNGEAL: The parapharyngeal space is intact. SALIVARY GLANDS: The parotid and submandibular glands are intact. LYMPH NODES: No enlarged or necrotic-appearing nodes. THYROID: Homogeneous enhancement without evidence of nodule. BONES: Unremarkable. SINUSES: Chronic sinusitis in the maxillary antra, right worse than left with nearly complete opacification of the right maxillary sinus. CONCLUSION: 1. Chronic sinusitis in the maxillary antra, right worse than left. 2. Otherwise, nothing acute. Eber Weeks MD on March 12, 2017 at 18:41 Board Certified Radiologist. This report was verified electronically.
[2017-03-12 18:51] VITALS: BP 138/67; PULSE 94; PULSE 95; RESP 16; O2SAT 90; O2SAT 92
[2017-03-12] MEDS ORDERED: SODIUM CHLOR 0.9% 1000 ML INJ 1,000 ML IV ONE (19:00)
[2017-03-12] MEDS ORDERED: PIPERACIL-TAZO 4.5 GM PREMIX 100 ML IV ONE (19:00)
[2017-03-12] MEDS ORDERED: HYDROmorphone HCL PF 0.5 MG/0.5 ML SYRINGE IV PUSH ONE (19:00)
[2017-03-12] MEDS ORDERED: ONDANSETRON HCL 4 MG/2 ML VIAL IVP PRN (19:45)
[2017-03-12] MEDS ORDERED: SENNOSIDES 8.6 MG TAB PO PRN (19:45)
[2017-03-12] MEDS ORDERED: BISACODYL 10 MG SUPP RECTAL PRN (19:45)
[2017-03-12] MEDS ORDERED: MAGNESIUM HYDROXIDE SUSP 30 ML CUP PO PRN (19:45)
[2017-03-12] MEDS ORDERED: SODIUM CHLORIDE 0.9% FLUSH 10 ML FLUSH IV FLUSH PRN (19:45)
[2017-03-12] MEDS ORDERED: LACTULOSE SYRUP 20 GM/30 ML CUP PO PRN (19:45)
[2017-03-12] MEDS ORDERED: NALOXONE HCL 0.4 MG/ML AMP IV PUSH PRN (19:45)
[2017-03-12] MEDS ORDERED: GLUCAGON 1 MG/ML VIAL OTHER PRN (20:00)
[2017-03-12] MEDS ORDERED: DEXTROSE 50% IN WATER 50 ML VIAL(D50) IV PUSH PRN (20:00)
[2017-03-12] MEDS ORDERED: MORPHINE SULFATE 4 MG/ML INJ IV PUSH PRN (20:00)
--- NOTE | 2017-03-12 20:14 | HHI.HP ---
[facility] Jozef Gilliland MD Admission Diagnosis COPD exacerbation, possible esophageal tear, hyponatremia Diagnoses: Travel History International Travel<30 Days: No Contact w/Intl Traveler <30 Da: No Traveled to Known Affected Are: No History of Present Illness 57-year-old male with a past medical history of COPD on 2 L nasal cannula at home, type 2 diabetes mellitus and hypertension presents to the emergency department with chest pain and shortness of breath which he attributes to his throat being swollen. The patient states he is having difficulty swallowing both solids and liquids. He states he feels as though he has "sand spurs in his throat." He denies hemoptysis/hematemesis. He has an [facility] scheduled [facility] but states he cannot make it that long. He states the burning in his chest feels like his previous GERD pain. He was found to be newly anemic on CBC with an H&H of 9.9/34.2. Previous H&H one month ago 11.6/ 40.5. He was Hemoccult negative in the emergency department. Review of Systems Denies fever or chills Denies blurry vision, otorrhea, rhinorrhea Positive sore throat Positive chest pain, positive shortness of breath No abdominal pain Denies constipation/diarrhea/nausea/vomiting Denies muscle pain/weakness No rashes Past Family Social History Past Medical History COPD on 2 L nasal cannula 06/11 and hypertension Insulin-dependent diabetes mellitus JEFF GERD Past Surgical History Cardiac catheterization 2014, no stents placed Reported Medications Reported Meds & Active Scripts Active Oxygen (O2) Device 2 Liter JACQUELINE.CANULA CONTINUOUS Oxygen Concentrator Portable Gaseous 2 L/min via Nasal Canula Continuous For 99 months Oxygen tank (Oxygen) 1 Ea Tank 2 Liter JACQUELINE.CANULA CONTINUOUS Oxygen Concentrator Portable Gaseous 2 L/min via Nasal Cannula Continuous For 99 months Bumetanide 2 Mg Tab 2 Mg PO BID 90 Days Reported Lyrica (Pregabalin) 50 Mg Cap 50 Mg PO DAILY Tramadol (Tramadol HCl) 50 Mg Tab 50 Mg PO Q4H PRN Trazodone (Trazodone HCl) 50 Mg Tab 50 Mg PO HS Spironolactone 100 Mg Tab 100 Mg PO BID Ventolin Hfa 18 GM Inh (Albuterol Sulfate) 90 Mcg/Act Aer 1 Puff INH Q4H PRN Dulcolax Supp (Bisacodyl) 10 Mg Supp 10 Mg RECTAL DAILY PRN Senna S (Sennosides-Docusate Sodium) 8.6-50 Mg Tab 1-2 Tab PO Q12HR PRN Omeprazole 20 Mg Tab 20 Mg PO DAILY Lantus Inj (Insulin Glargine) 1,000 Unit/10 Ml Vial 80 Units SQ BID Advair Diskus Inh (Fluticasone-Salmeterol Inh) 250-50 Mcg/Blist Aer 2 Puff INH BID Rinse mouth after use. Aspirin DR (Aspirin) 81 Mg Tabdr 81 Mg PO DAILY Hydralazine HCl 25 Mg Tablet 25 Mg PO TID Isosorbide Mononitrate ER (Isosorbide Mononitrate) 30 Mg Alexsander 30 Mg PO DAILY Duoneb (Ipratropium-Albuterol Neb) 0.5-2.5 Mg/3 Ml Neb 1 Nebule NEB Q4HR NEB PRN Bupropion HCl 100 Mg Tab 100 Mg PO DAILY Allergies: Coded Allergies: No Known Allergies (Verified Adverse Reaction, Unknown, 03/12/17) Family History Father age 27 of liver cirrhosis Mother of old age Social History Quit drinking one year ago, previous history of being a heavy drinker. Smokes 1.5 pack per day 40 years. Occasional marijuana use. Denies other illicit drugs. Physical Exam Vital Signs Vital Signs Date Time Temp Pulse Resp B/P (MAP) Pulse Ox O2 Delivery O2 Flow Rate FiO2 03/12/17 18:51 95 16 138/67 (90) 90 Nasal Cannula 3.00 03/12/17 18:51 94 16 138/67 (90) 92 Nasal Cannula 3.00 03/12/17 18:48 95 Nasal Cannula 4.00 03/12/17 15:58 94 Nasal Cannula 4.00 03/12/17 14:44 96 16 03/12/17 14:38 98.8 96 16 135/68 (90) 80 03/12/17 14:30 98.5 124 28 128/60 (82) 87 Nasal Cannula 4.00 Physical Exam GENERAL: Obese male sitting up in the chair SKIN: No rashes, ecchymoses or lesions. Cool and dry. HEAD: Atraumatic. Normocephalic. No temporal or scalp tenderness. EYES: Pupils equal round and reactive. Extraocular motions intact. No scleral icterus. No injection or drainage. ENT: Nose without bleeding, purulent drainage or septal hematoma. Throat without erythema, tonsillar hypertrophy or exudate. Uvula midline. Airway patent. NECK: Trachea midline. No JVD or lymphadenopathy. Supple, nontender, no meningeal signs. CARDIOVASCULAR: Regular rate and rhythm without murmurs, gallops, or rubs. RESPIRATORY: Bilateral wheezes throughout. GASTROINTESTINAL: Abdomen soft, non-tender, nondistended. No hepato-splenomegaly , or palpable masses. No guarding. MUSCULOSKELETAL: 1+ pitting edema to the midshin. No calf tenderness. Negative Homans sign bilaterally. NEUROLOGICAL: Awake and alert. Cranial nerves II through XII intact. Motor and sensory grossly within normal limits. Normal speech. Laboratory Laboratory Tests Test 03/12/17 15:00 03/12/17 16:20 White Blood Count 15.6 Red Blood Count 5.45 Hemoglobin 9.9 Hematocrit 34.2 Mean Corpuscular Volume 62.7 Mean Corpuscular Hemoglobin 18.1 Mean Corpuscular Hemoglobin Concent 28.8 Red Cell Distribution Width 20.9 Platelet Count 365 Mean Platelet Volume 8.2 Neutrophils (%) (Auto) 74.8 Lymphocytes (%) (Auto) 15.1 Monocytes (%) (Auto) 7.6 Eosinophils (%) (Auto) 1.9 Basophils (%) (Auto) 0.6 Neutrophils # (Auto) 11.7 Lymphocytes # (Auto) 2.4 Monocytes # (Auto) 1.2 Eosinophils # (Auto) 0.3 Basophils # (Auto) 0.1 CBC Comment DIFF FINAL Differential Comment Prothrombin Time 10.6 Prothromb Time International Ratio 1.0 Activated Partial Thromboplast Time 29.0 Blood Urea Nitrogen 30 Creatinine 1.09 Random Glucose 126 Total Protein 6.7 Albumin 3.6 Calcium Level 8.6 Magnesium Level 1.6 Alkaline Phosphatase 84 Aspartate Amino Transf (AST/SGOT) 16 Alanine Aminotransferase (ALT/SGPT) 22 Total Bilirubin 0.3 Sodium Level 130 Potassium Level 4.2 Chloride Level 90 Carbon Dioxide Level 33.8 Anion Gap 6 Estimat Glomerular Filtration Rate 70 Total Creatine Kinase 26 Troponin I LESS THAN 0.02 B-Type Natriuretic Peptide 228 Urine Color YELLOW Urine Turbidity CLEAR Urine pH 5.5 Urine Specific [employer] 1.012 Urine Protein NEG Urine Glucose (UA) NEG Urine Ketones NEG Urine Occult Blood NEG Urine Nitrite NEG Urine Bilirubin NEG Urine Urobilinogen LESS THAN 2.0 Urine Leukocyte Esterase NEG Urine WBC LESS THAN 1 Microscopic Urinalysis Comment CULT NOT INDICATED Date/Time Source Procedure Growth Status 03/12/17 16:00 Throat Group A Streptococcus Screen Pending Received Result Diagram: 03/12/17 1500 03/12/17 1500 Caprini VTE Risk Assessment Caprini VTE Risk Assessment: Mod/High Risk (score >= 2) Caprini Risk Assessment Model Point Value = 1 Point Value = 2 Point Value = 3 Point Value = 5 Age 41-60 Minor surgery BMI > 25 kg/m2 Swollen legs Varicose veins or History of unexplained or recurrent spontaneous Oral contraceptives or hormone replacement Sepsis (< 1 month) Serious lung disease, including pneumonia (< 1 month) Abnormal pulmonary function Acute myocardial infarction Congestive heart failure (< 1 month) History of inflammatory bowel disease Medical patient at bed rest Age 61-74 Arthroscopic surgery Major open surgery (> 45 min) Laparoscopic surgery (> 45 min) Malignancy Confined to bed (> 72 hours) Immobilizing plaster cast Central venous access Age >= 75 History of VTE Family history of VTE Factor V Leiden Prothrombin [id number] Lupus anticoagulant Anticardiolipin antibodies Elevated serum homocysteine Heparin-induced thrombocytopenia Other congenital or acquired thrombophilia Stroke (< 1 month) Elective arthroplasty Hip, pelvis, or leg fracture Acute spinal cord injury (< 1 month) Prophylaxis Regimen Total Risk Factor Score Risk Level Prophylaxis Regimen 0-1 Low Early ambulation 2 Moderate Order ONE of the following: *Sequential Compression Device (SCD) *Heparin 5000 units SQ BID 3-4 Higher Order ONE of the following medications: *Heparin 5000 units SQ TID *Enoxaparin/Lovenox 40 mg SQ daily (WT < 150 kg, CrCl > 30 mL/min) *Enoxaparin/Lovenox 30 mg SQ daily (WT < 150 kg, CrCl > 10-29 mL/min) *Enoxaparin/Lovenox 30 mg SQ BID (WT < 150 kg, CrCl > 30 mL/min) AND/OR *Sequential Compression Device (SCD) 5 or more Highest Order ONE of the following medications: *Heparin 5000 units SQ TID (Preferred with Epidurals) *Enoxaparin/Lovenox 40 mg SQ daily (WT < 150 kg, CrCl > 30 mL/min) *Enoxaparin/Lovenox 30 mg SQ daily (WT < 150 kg, CrCl > 10-29 mL/min) *Enoxaparin/Lovenox 30 mg SQ BID (WT < 150 kg, CrCl > 30 mL/min) AND *Sequential Compression Device (SCD) Assessment and Plan Assessment and Plan 57-year-old male with past medical history significant for COPD, hypertension, insulin-dependent diabetes mellitus and JEFF presents with throat pain and difficulty breathing, chest pain and shortness of breath. 1. Throat pain/chest pain Patient presents with sharp burning midsternal/upper epigastric pain and new anemia, concern for new esophageal injury, possible bleed Also complains of throat swelling making it difficult to breathe Consult gastroenterology for possible EGD Morphine for pain Neck CT with no acute findings 2. Anemia Hemoccult negative in the ED Etiology unknown Concern for possible esophageal bleed Monitor and transfuse prn Plan as above 3. COPD On 2 L nasal cannula at home Duo nebs IV steroids 4. Leukocytosis Chronic Monitor 4. Hypertension Continue home medications FEN NPO NS at 84 cc/hr Electrolytes: Monitor and replete when necessary Holding pharmacologic anticoagulation for possible bleed Mariah Riley MD Mar 12, 2017 20:14
[2017-03-12] MEDS: SODIUM CHLOR 0.9% 1000 ML INJ 1,000 ML IV SCH (20:15)
[2017-03-12] MEDS ORDERED: RESP: ALBUTEROL 2.5 MG/IPRATROPIUM 0.5 MG NEB (PRN) NEB (20:15)
[2017-03-12] MEDS: SPIRONOLACTONE 100 MG TAB PO SCH (21:00)
[2017-03-12] MEDS: INSULIN DETEMIR 100 UNITS/ML VIAL SQ SCH (21:00)
[2017-03-12] MEDS: SODIUM CHLORIDE 0.9% FLUSH 10 ML FLUSH IV FLUSH SCH (21:00)
[2017-03-12] MEDS ORDERED: NON-FORMULARY DRUG (Fluticasone-Salmeterol Inh (Advair Diskus Inh) 2 PUFF) INH SCH (21:00)
[2017-03-12] MEDS: INSULIN ASPART SUPPLEMENTAL SCALE SQ SCH (21:00)
[2017-03-12] MEDS: BUMETANIDE 1 MG TAB PO SCH (21:04)
[2017-03-12] MEDS: traZODone HCL 50 MG TAB PO SCH (21:04)
[2017-03-12] MEDS: MORPHINE SULFATE 4 MG/ML INJ IV PUSH PRN (21:04)
[2017-03-12] MEDS: BUDESONIDE-FORMOTEROL 160/4.5 MCG INHALER INH SCH (22:59)
[2017-03-12] MEDS: methylPREDNISolone SOD SUCC 40 MG/1 ML VIAL IV PUSH SCH (23:25)
[2017-03-13] VITALS (9 sets, daily range): BP systolic 112–150; BP diastolic 61–116; PULSE 82–138; RESP 18–20; TEMP 97.3–98.6; O2SAT 86–99
[2017-03-13 00:51] LABS: HEMATOCRIT 36.3 % (39.0-51.0); REVIEW FLAG FINAL
[2017-03-13] MEDS: MORPHINE SULFATE 4 MG/ML INJ IV PUSH PRN ×4 (00:51→20:26)
[2017-03-13] MEDS: RESP: ALBUTEROL 2.5 MG/IPRATROPIUM 0.5 MG NEB (PRN) NEB (00:53)
[2017-03-13] MEDS: methylPREDNISolone SOD SUCC 40 MG/1 ML VIAL IV PUSH SCH ×2 (05:45→20:20)
[2017-03-13 07:21] LABS: AUTOMATED NEUTROPHIL # 9.9 TH/MM3 (1.8-7.7); BASOPHIL % 0.1 % (0.0-2.0); HEMATOCRIT 36.8 % (39.0-51.0); LYMPH % 4.7 % (9.0-44.0); LYMPHOCYTE # 0.5 TH/MM3 (1.0-4.8); MEAN CELL VOLUME 63.8 FL (80.0-100.0); MEAN CORPUSCULAR HEMOGLOBIN 18.4 PG (27.0-34.0); MONO % 1.6 % (0.0-8.0); NEUT % 93.6 % (16.0-70.0); PLATELET COUNT 313 TH/MM3 (150-450); RED BLOOD COUNT 5.76 MIL/MM3 (4.50-5.90); RED CELL DISTRIBUTION WIDTH 20.7 % (11.6-17.2); WHITE BLOOD COUNT 10.6 TH/MM3 (4.0-11.0)
[2017-03-13 07:25] LABS: MEAN CORPUSCULAR HGB CONC 28.9 % (32.0-36.0)
[2017-03-13 07:26] LABS: HEMO FLAGS AUTO DIFF
[2017-03-13 07:47] LABS: BICARBONATE 35.7 MEQ/L (21.0-32.0); POTASSIUM 4.7 MEQ/L (3.5-5.1)
[2017-03-13] MEDS: INSULIN ASPART SUPPLEMENTAL SCALE SQ SCH ×4 (08:00→20:37)
[2017-03-13] MEDS: SODIUM CHLOR 0.9% 1000 ML INJ 1,000 ML IV SCH ×2 (08:10→20:05)
--- NOTE | 2017-03-13 08:58 | PD.CONS ---
HPI History of Present Illness This is a 57 year old male who came to the emergency room for severe odynophagia. He states that he has been having a severe pain in his esophagus that he describes as "sand spurs" in his upper esophagus. He denies any difficulty with solids or liquids becoming lodged in his upper esophagus. He cannot identify any aggravating or alleviating factors. He denies any heartburn or reflux, nausea, or vomiting. He was started on omeprazole, but has not had any improvement with this. He was then given magic mouthwash as outpatient and did have some relief with this, but he reports that it does not last while. He reports that Dr. Gilliland made an appointment for him to see a knit goods washer on 04/07/17, but the patient states that he cannot wait that long and therefore came to the emergency room. He also reports that he has been hoarse for the past month. He does have chronic constipation, which is controlled with Senokot. He has never had an EGD or colonoscopy. He came to the ER and was evaluated with soft tissue neck xray (03/12/17)---> Limited exam , subcutaneous emphysema cannot be entirely excluded. Of note, this was not appreciated on the CXR or Neck CT. (Peggy Madrid) PFSH Past Medical History COPD on 2 L n/c at home Insulin-dependent diabetes mellitus HTN JEFF GERD Constipation Past Surgical History Cardiac catheterization 2014, no stents placed (Peggy Madrid) Coded Allergies: No Known Allergies (Verified Allergy, Unknown, 03/12/17) Medications Allergies Coded Allergies Type Severity Reaction Last Updated Verified No Known Allergies Allergy Unknown 03/12/17 Yes Active Scripts Medications Dose Route/Sig Max Daily Dose Days Date Category Dose Instructions Lyrica (Pregabalin) 50 Mg Cap 50 Mg PO DAILY 01/19/17 Reported Tramadol (Tramadol HCl) 50 Mg Tab 50 Mg PO Q4H PRN 01/19/17 Reported Trazodone (Trazodone HCl) 50 Mg Tab 50 Mg PO HS 01/19/17 Reported Oxygen (O2) Device 2 Liter JACQUELINE.CANULA CONTINUOUS 11/15/16 Rx Oxygen Concentrator Portable Gaseous 2 L/min via Nasal Canula Continuous For 99 months Oxygen tank (Oxygen) 1 Ea Tank 2 Liter JACQUELINE.CANULA CONTINUOUS 11/15/16 Rx Oxygen Concentrator Portable Gaseous 2 L/min via Nasal Cannula Continuous For 99 months Spironolactone 100 Mg Tab 100 Mg PO BID 11/11/16 Reported Ventolin Hfa 18 GM Inh (Albuterol Sulfate) 90 Mcg/Act Aer 1 Puff INH Q4H PRN 11/11/16 Reported Dulcolax Supp (Bisacodyl) 10 Mg Supp 10 Mg RECTAL DAILY PRN 11/11/16 Reported Senna S (Sennosides-Docusate Sodium) 8.6-50 Mg Tab 1-2 Tab PO Q12HR PRN 11/11/16 Reported Omeprazole 20 Mg Tab 20 Mg PO DAILY 11/11/16 Reported Lantus Inj (Insulin Glargine) 1,000 Unit/10 Ml Vial 80 Units SQ BID 11/11/16 Reported Advair Diskus Inh (Fluticasone-Salmeterol Inh) 250-50 Mcg/Blist Aer 2 Puff INH BID 11/11/16 Reported Rinse mouth after use. Aspirin DR (Aspirin) 81 Mg Tabdr 81 Mg PO DAILY 11/11/16 Reported Bumetanide 2 Mg Tab 2 Mg PO BID 90 09/20/16 Rx Hydralazine HCl 25 Mg Tablet 25 Mg PO TID 09/12/16 Reported Isosorbide Mononitrate ER (Isosorbide Mononitrate) 30 Mg Alexsander 30 Mg PO DAILY 09/12/16 Reported Duoneb (Ipratropium-Albuterol Neb) 0.5-2.5 Mg/3 Ml Neb 1 Nebule NEB Q4HR NEB PRN 07/30/16 Reported Bupropion HCl 100 Mg Tab 100 Mg PO DAILY 02/13/16 Reported Magic mouthwash Family History Father age 27 of liver cirrhosis Mother of old age Social History Quit drinking 7 months ago, previous history of being a heavy drinker. Smokes 1.5 pack per day 40 years. Occasional marijuana use. Denies other illicit drugs. (Peggy Madrid) Review of Systems Constitutional: DENIES: Fever, Weight loss, Chills Ears, nose, mouth, throat: COMPLAINS OF: Throat pain, Hoarseness Respiratory: COMPLAINS OF: Cough, Wheezing, Sputum production, Shortness of breath, DENIES: Hemoptysis Gastrointestinal: COMPLAINS OF: Constipation, Nausea, Vomiting, Odynophagia, DENIES: Abdominal pain, Black stools, Bloody stools, Diarrhea, Difficulty Swallowing, Hematemesis Integumentary: DENIES: Abnormal pigmentation Hematologic/lymphatic: DENIES: Bruising Neurologic: DENIES: Headache Psychiatric: DENIES: Confusion (Peggy Madrid) GI Exam Vitals I&O Vital Signs Date Time Temp Pulse Resp B/P (MAP) Pulse Ox O2 Delivery O2 Flow Rate FiO2 03/13/17 06:19 20 03/13/17 05:39 97.3 100 20 122/61 (81) 91 03/13/17 01:11 98.6 97 18 137/68 (91) 91 03/13/17 00:56 93 Nasal Cannula 4.00 03/12/17 20:30 03/12/17 18:51 95 16 138/67 (90) 90 Nasal Cannula 3.00 03/12/17 18:51 94 16 138/67 (90) 92 Nasal Cannula 3.00 03/12/17 18:48 95 Nasal Cannula 4.00 03/12/17 15:58 94 Nasal Cannula 4.00 03/12/17 14:44 96 16 03/12/17 14:38 98.8 96 16 135/68 (90) 80 03/12/17 14:30 98.5 124 28 128/60 (82) 87 Nasal Cannula 4.00 I/O 03/12/17 03/12/17 03/12/17 03/13/17 03/13/17 03/13/17 07:00 15:00 23:00 07:00 15:00 23:00 Intake Total 100 ml 240 ml Output Total 550 ml Balance 100 ml -310 ml Intake Oral 240 ml IV Total 100 ml Output Urine Total 550 ml # Bowel Movements 0 Imaging Last Impressions Neck CT 03/12/17 1624 Signed Impressions: Service Date/Time: Sunday, March 12, 2017 17:48 - CONCLUSION: 1. Chronic sinusitis in the maxillary antra, right worse than left. 2. Otherwise, nothing acute. Eber Weeks MD Chest X-Ray 03/12/17 1507 Signed Impressions: Service Date/Time: Sunday, March 12, 2017 15:29 - CONCLUSION: No acute disease. Jose Tim Jr., MD Soft Tissue Neck X-Ray 03/12/17 0000 Signed Impressions: Service Date/Time: Sunday, March 12, 2017 15:34 - CONCLUSION: Limited exam. Subcutaneous emphysema cannot be entirely excluded. Mario Pablo MD FACR Laboratory Test 03/12/17 15:00 03/12/17 16:20 03/13/17 00:40 03/13/17 06:35 White Blood Count 15.6 TH/MM3 10.6 TH/MM3 Red Blood Count 5.45 MIL/MM3 5.76 MIL/MM3 Hemoglobin 9.9 GM/DL 10.5 GM/DL 10.6 GM/DL Hematocrit 34.2 % 36.3 % 36.8 % Mean Corpuscular Volume 62.7 FL 63.8 FL Mean Corpuscular Hemoglobin 18.1 PG 18.4 PG Mean Corpuscular Hemoglobin Concent 28.8 % 28.9 % Red Cell Distribution Width 20.9 % 20.7 % Platelet Count 365 TH/MM3 313 TH/MM3 Mean Platelet Volume 8.2 FL 8.6 FL Neutrophils (%) (Auto) 74.8 % 93.6 % Lymphocytes (%) (Auto) 15.1 % 4.7 % Monocytes (%) (Auto) 7.6 % 1.6 % Eosinophils (%) (Auto) 1.9 % 0.0 % Basophils (%) (Auto) 0.6 % 0.1 % Neutrophils # (Auto) 11.7 TH/MM3 9.9 TH/MM3 Lymphocytes # (Auto) 2.4 TH/MM3 0.5 TH/MM3 Monocytes # (Auto) 1.2 TH/MM3 0.2 TH/MM3 Eosinophils # (Auto) 0.3 TH/MM3 0.0 TH/MM3 Basophils # (Auto) 0.1 TH/MM3 0.0 TH/MM3 CBC Comment DIFF FINAL AUTO DIFF Differential Comment Prothrombin Time 10.6 SEC Prothromb Time International Ratio 1.0 RATIO Activated Partial Thromboplast Time 29.0 SEC Blood Urea Nitrogen 30 MG/DL 21 MG/DL Creatinine 1.09 MG/DL 0.88 MG/DL Random Glucose 126 MG/DL 166 MG/DL Total Protein 6.7 GM/DL Albumin 3.6 GM/DL Calcium Level 8.6 MG/DL 8.7 MG/DL Magnesium Level 1.6 MG/DL Alkaline Phosphatase 84 U/L Aspartate Amino Transf (AST/SGOT) 16 U/L Alanine Aminotransferase (ALT/SGPT) 22 U/L Total Bilirubin 0.3 MG/DL Sodium Level 130 MEQ/L 134 MEQ/L Potassium Level 4.2 MEQ/L 4.7 MEQ/L Chloride Level 90 MEQ/L 94 MEQ/L Carbon Dioxide Level 33.8 MEQ/L 35.7 MEQ/L Anion Gap 6 MEQ/L 4 MEQ/L Estimat Glomerular Filtration Rate 70 ML/MIN 90 ML/MIN Total Creatine Kinase 26 U/L Troponin I LESS THAN 0.02 NG/ML B-Type Natriuretic Peptide 228 PG/ML Urine Color YELLOW Urine Turbidity CLEAR Urine pH 5.5 Urine Specific [place] 1.012 Urine Protein NEG mg/dL Urine Glucose (UA) NEG mg/dL Urine Ketones NEG mg/dL Urine Occult Blood NEG Urine Nitrite NEG Urine Bilirubin NEG Urine Urobilinogen LESS THAN 2.0 MG/DL Urine Leukocyte Esterase NEG Urine WBC LESS THAN 1 /hpf Microscopic Urinalysis Comment CULT NOT INDICATED Date/Time Source Procedure Growth Status 03/12/17 16:00 Throat Group A Streptococcus Screen Pending Received Physical Examination HEENT: Normocephalic; atraumatic; no jaundice. Hoarse CHEST: Expiratory wheezing, anteriorly and posteriorly CARDIAC: RRR ABDOMEN: Soft, nondistended, nontender; no hepatosplenomegaly; bowel sounds are present in all four quadrants. EXTREMITIES: BLE edema, decolorization to ble, worse in left SKIN: Normal; no rash; no jaundice. LAND ECONOMIST: No focal deficits; alert and oriented times three. (Peggy Madrid) Assessment and Plan Plan ASSESSMENT: - Severe odynophagia, hoarseness with abnormal imaging with questionable subcutaneous emphysema on soft tissue neck xray. This was not appreciated on the CXR or Neck CT. 1 month hx of severe odynophagia/esophageal pain, described as "sand spurs" in upper esophagus. Denies heartburn, reflux, nausea, vomiting. No relief with omeprazole. Some relief with magic mouthwash, but does not last long. Referred to GI with appt. on 04/07, but states he has not been seen yet. He has never had an EGD or colonoscopy. NPO. PPI. Barium swallow with gastrografin. If negative, will need EGD. He did have one dose of zosyn. - Leukocytosis, improved. - Anemia. 10.6/36.8. No obvious bleeding. Never had colonoscopy. - Constipation, controlled with Senokot. - COPD, JEFF, HTN, DM per attending. PLAN: - NPO - Barium Swallow with gastrografin - Cont. PPI - Ferritin, Iron saturation - CBC, BMP in am - Supportive care - If barium swallow negative, will need EGD - Will need colonoscopy as outpatient for colorectal screening/anemia. - Pt seen and examined by Dr. Narvaez and myself and this note is written on his behalf Addendum, Barium swallow with gastrografin unremarkable. Will plan for EGD in am. Okay for full liquids today. Add PPI. (Peggy Madrid) Physician Comments seen, examined agree with above ba swallow noted egd in am if negative will need ent eval lidocaine liquid will need a colonoscopy too- can be done op-iron deficiency anemia (Pallavi Narvaez MD) Peggy Madrid Mar 13, 2017 08:58 Pallavi Narvaez MD Mar 13, 2017 19:16
[2017-03-13] MEDS ORDERED: DIATRIZOATE MEGLUM/DIATRIZOATE SOD 120 ML BTL (for RAD DIAG) PO ONE (09:15)
--- NOTE | 2017-03-13 10:07 | RADRPT ---
EXAM DATE/TIME: 03/13/2017 09:38 [facility] COMPARISON: No previous studies available for comparison. INDICATIONS : Intermittent esophageal pain. No known injury or recent surgery. FLUORO TIME: 0.6 minutes IMAGE COUNT: 41 CONTRAST: 1. Gastrografin (Diatrizoate Meglumine and Diatrizoate Sodium) MEDICAL HISTORY : Hypertension. Chronic obstructive pulmonary disease. Emphysema. Myocardial infarction. GERD Diabe brandon. SURGICAL HISTORY : None. ENCOUNTER: Initial ACUITY: 4 - 6 months PAIN SCORE: 10/10 LOCATION: Esophagus. FINDINGS: Patient has limited mobility and ability to cooperate with exam due to severe COPD. Examination of th e esophagus demonstrates the swallowing function to be normal. There is no evidence of aspiration or penetration. The body of the esophagus is unremarkable. The esophageal transit time is normal. There is no evidence for significant mass or external compression. No hiatal hernia is identified. CONCLUSION: Unremarkable examination of the esophagus. Alexei Medina MD on March 13, 2017 at 10:00 Board Certified Radiologist. This report was verified electronically.
[2017-03-13] MEDS: INSULIN DETEMIR 100 UNITS/ML VIAL SQ SCH ×2 (10:18→20:21)
[2017-03-13] MEDS: BUDESONIDE-FORMOTEROL 160/4.5 MCG INHALER INH SCH ×2 (10:19→20:15)
--- NOTE | 2017-03-13 12:33 | HHI.PR ---
Subjective Remarks Patient says that breathing is slightly improved from yesterday. Denies any chest pain. Denies any abdominal pain. He continues to report feeling as if she is following a sandspur. Objective Vital Signs Date Time Temp Pulse Resp B/P (MAP) Pulse Ox O2 Delivery O2 Flow Rate FiO2 03/13/17 10:03 91 Nasal Cannula 4.00 03/13/17 09:12 98.0 82 20 112/79 (90) 92 03/13/17 06:19 20 03/13/17 05:39 97.3 100 20 122/61 (81) 91 03/13/17 01:11 98.6 97 18 137/68 (91) 91 03/13/17 00:56 93 Nasal Cannula 4.00 03/12/17 20:30 03/12/17 18:51 95 16 138/67 (90) 90 Nasal Cannula 3.00 03/12/17 18:51 94 16 138/67 (90) 92 Nasal Cannula 3.00 03/12/17 18:48 95 Nasal Cannula 4.00 03/12/17 15:58 94 Nasal Cannula 4.00 03/12/17 14:44 96 16 03/12/17 14:38 98.8 96 16 135/68 (90) 80 03/12/17 14:30 98.5 124 28 128/60 (82) 87 Nasal Cannula 4.00 I/O 03/12/17 03/12/17 03/12/17 03/13/17 03/13/17 03/13/17 07:00 15:00 23:00 07:00 15:00 23:00 Intake Total 100 ml 240 ml Output Total 550 ml Balance 100 ml -310 ml Intake Oral 240 ml IV Total 100 ml Output Urine Total 550 ml # Bowel Movements 0 Result Diagram: 03/13/1735 03/13/17 0635 Objective Remarks GENERAL: Sitting up in bed. Appears to have some difficulty breathing. Alert and oriented 3 SKIN: Warm and dry. HEAD: Normocephalic. EYES: No scleral icterus. No injection or drainage. NECK: Supple, trachea midline. No JVD. CARDIOVASCULAR: Regular rate and rhythm without murmurs, gallops, or rubs. RESPIRATORY: Breath sounds equal bilaterally. No accessory muscle use. GASTROINTESTINAL: Abdomen distended. Nontender. Positive bowel sounds. MUSCULOSKELETAL: No cyanosis, or edema. BACK: Nontender without obvious deformity. No CVA tenderness. A/P Assessment and Plan 57-year-old male with past medical history significant for COPD, hypertension, insulin-dependent diabetes mellitus and JEFF presents with throat pain and difficulty breathing, chest pain and shortness of breath. //Throat pain/chest pain Patient presents with sharp burning midsternal/upper epigastric pain and new anemia, concern for new esophageal injury, possible bleed Also complains of throat swelling making it difficult to breathe Consult gastroenterology for possible EGD Morphine for pain Neck CT with no acute findings = Appreciate GI assistance. Negative barium swallow. Plan for EGD tomorrow. Patient requests soft diet. Ordered. //Anemia Hemoccult negative in the ED Etiology unknown Concern for possible esophageal bleed Monitor and transfuse prn Plan as above = Crescentic anemia. Hemoglobin stable. In 0.6 today. //COPD laceration On 2 L nasal cannula at home Duo nebs Improving. She Zosyn to Zosyn for aspiration pneumonitis. Taper IV steroids. //LEukocytosis Chronic Monitor. Stable. //Constipation. Orde laxatives //Hypertension Continue home medications FEN NPO NS at 84 cc/hr Electrolytes: Monitor and replete when necessary Holding pharmacologic anticoagulation for possible bleed Discharge Planning Admit for COPD exacerbation with increased oxygen requirement. Miguel Frank MD Mar 13, 2017 12:33
[2017-03-13] MEDS: hydrALAZINE HCL 25 MG TAB PO SCH ×3 (12:59→18:57)
[2017-03-13] MEDS: SPIRONOLACTONE 100 MG TAB PO SCH ×2 (12:59→20:17)
[2017-03-13] MEDS: ASPIRIN EC 81 MG TABEC PO SCH (12:59)
[2017-03-13] MEDS: ISOSORBIDE MONONITRATE 30 MG TAB PO SCH (12:59)
[2017-03-13] MEDS: BUMETANIDE 1 MG TAB PO SCH ×2 (13:00→20:16)
[2017-03-13] MEDS: buPROPion HCL 100 MG TAB PO SCH (13:01)
[2017-03-13] MEDS: PREGABALIN 25 MG CAP PO SCH (13:16)
[2017-03-13] MEDS: SODIUM CHLORIDE 0.9% FLUSH 10 ML FLUSH IV FLUSH SCH ×2 (13:17→20:19)
[2017-03-13] MEDS ORDERED: MAGNESIUM HYDROXIDE SUSP 30 ML CUP PO ONE (14:00)
[2017-03-13] MEDS ORDERED: DOCUSATE SODIUM 50 MG/SENNA 8.6 MG TAB PO ONE (14:00)
--- NOTE | 2017-03-13 17:55 | EKG ---
Date Performed: 03/12/2017 Time Performed: 14:54:34 PTAGE: 57 years EKG: Sinus rhythm BORDERLINE RIGHT AXIS DEVIATION MINIMAL ST DEPRESSION Since previous tracing, no significant change noted BORDERLINE ECG PREVIOUS TRACING : 01/19/2017 21.26 DOCTOR: Jeannette Smalls Interpretating Date/Time 03/13/2017 17:54:17
[2017-03-13] MEDS ORDERED: LIDOCAINE VISCOUS 2% SOLN 15 ML UDC SWISH-SPIT PRN (19:30)
[2017-03-13] MEDS: traZODone HCL 50 MG TAB PO SCH (20:16)
[2017-03-13] MEDS: AMOXICIL-CLAV 600 MG/5 ML LIQ 125 ML BTL PO SCH (23:47)
[2017-03-14] VITALS (9 sets, daily range): BP systolic 121–144; BP diastolic 58–74; PULSE 79–105; RESP 18–24; TEMP 97.5–98.5; O2SAT 89–97
[2017-03-14] MEDS ORDERED: POVIDONE IODINE 5% (ANTISEPSIS KIT) 4 APPLICATIONS EACH NARE PRN (00:15)
[2017-03-14] MEDS ORDERED: SODIUM CHLORID 0.9% 500 ML IV PRN (00:15)
[2017-03-14] MEDS ORDERED: CHLORHEXIDINE GLUCONATE 2 % 1 PACK (2 CLOTHS) TOPICAL PRN (00:15)
[2017-03-14] MEDS ORDERED: METOPROLOL TARTRATE 25 MG TAB PO PRN (00:15)
[2017-03-14] MEDS ORDERED: INSULIN HUMAN REGULAR 1,000 UNITS/10 ML VIAL SQ PRN (00:15)
[2017-03-14] MEDS ORDERED: LACTATED RINGER'S 1000 ML IV PRN (00:15)
[2017-03-14] MEDS: MORPHINE SULFATE 4 MG/ML INJ IV PUSH PRN ×2 (02:10→08:32)
[2017-03-14] MEDS: RESP: ALBUTEROL 2.5 MG/IPRATROPIUM 0.5 MG NEB (PRN) NEB ×3 (03:33→21:35)
[2017-03-14] MEDS: SODIUM CHLOR 0.9% 1000 ML INJ 1,000 ML IV SCH (07:59)
[2017-03-14] MEDS: INSULIN ASPART SUPPLEMENTAL SCALE SQ SCH ×4 (08:00→22:06)
--- NOTE | 2017-03-14 08:19 | HHI.PR ---
Subjective Remarks Patient says that sore throat continues. He does report breathing is almost back to baseline. He is very upset about being nothing by mouth, once is EGD done soon, or he says he is going home. Objective Vital Signs Date Time Temp Pulse Resp B/P (MAP) Pulse Ox O2 Delivery O2 Flow Rate FiO2 03/14/17 07:16 98.5 85 18 132/74 (93) 89 03/14/17 04:39 97.5 79 18 128/73 (91) 97 03/14/17 01:39 97.8 89 18 121/58 (79) 96 03/13/17 20:15 92 Nasal Cannula 4.00 03/13/17 20:10 97.3 94 20 123/69 (87) 90 03/13/17 16:25 98.0 138 20 113/90 (98) 86 03/13/17 15:45 20 03/13/17 14:33 20 03/13/17 14:19 98.0 99 20 150/116 (127) 99 03/13/17 10:03 91 Nasal Cannula 4.00 03/13/17 09:12 98.0 82 20 112/79 (90) 92 I/O 03/13/17 03/13/17 03/13/17 03/14/17 03/14/17 03/14/17 07:00 15:00 23:00 07:00 15:00 23:00 Intake Total 240 ml Output Total 550 ml 1700 ml Balance -310 ml -1700 ml Intake Oral 240 ml Output Urine Total 550 ml 1700 ml # Bowel Movements 0 Result Diagram: 03/13/17 0635 03/13/17 0635 Objective Remarks GENERAL: Sitting up in bed. Appears to be breathing comfortably.. Alert and oriented 3 SKIN: Warm and dry. HEAD: Normocephalic. EYES: No scleral icterus. No injection or drainage. NECK: Supple, trachea midline. No JVD. CARDIOVASCULAR: Regular rate and rhythm without murmurs, gallops, or rubs. RESPIRATORY: Breath sounds equal bilaterally. No accessory muscle use. GASTROINTESTINAL: Abdomen distended. Nontender. Positive bowel sounds. MUSCULOSKELETAL: No cyanosis, or edema. BACK: Nontender without obvious deformity. No CVA tenderness. A/P Assessment and Plan 57-year-old male with past medical history significant for COPD, hypertension, insulin-dependent diabetes mellitus and JEFF presents with throat pain and difficulty breathing, chest pain and shortness of breath. //Throat pain/chest pain Patient presents with sharp burning midsternal/upper epigastric pain and new anemia, concern for new esophageal injury, possible bleed Also complains of throat swelling making it difficult to breathe Consult gastroenterology for possible EGD Morphine for pain Neck CT with no acute findings = Appreciate GI assistance. Negative barium swallow. Plan for EGD tomorrow. Patient requests soft diet. Ordered. = Discussed with nurse this morning. Discussed with GI lab, will try to move up the shins EGD. //Anemia Hemoccult negative in the ED Etiology unknown Concern for possible esophageal bleed Monitor and transfuse prn Plan as above = Or acidic anemia. Hemoglobin stable. 10.6 yesterday. //COPD laceration On 2 L nasal cannula at home Duo nebs Improving. -Continue Unasyn for aspiration. Tapered to by mouth prednisone //LEukocytosis Resolved today. //Constipation. Orde laxatives //Hypertension Continue home medications FEN NPO NS at 84 cc/hr Electrolytes: Monitor and replete when necessary Holding pharmacologic anticoagulation for possible bleed Discharge Planning Oxygen back to baseline. Pending EGD. Miguel Frank MD Mar 14, 2017 08:19
[2017-03-14] MEDS: INSULIN DETEMIR 100 UNITS/ML VIAL SQ SCH ×2 (08:29→20:39)
[2017-03-14] MEDS ORDERED: MAGNESIUM HYDROXIDE SUSP 30 ML CUP PO ONE (08:30)
[2017-03-14] MEDS ORDERED: DOCUSATE SODIUM 50 MG/SENNA 8.6 MG TAB PO ONE (08:30)
[2017-03-14] MEDS: PREGABALIN 25 MG CAP PO SCH (08:33)
[2017-03-14] MEDS: ISOSORBIDE MONONITRATE 30 MG TAB PO SCH (08:33)
[2017-03-14] MEDS: buPROPion HCL 100 MG TAB PO SCH (08:33)
[2017-03-14] MEDS: ASPIRIN EC 81 MG TABEC PO SCH (08:33)
[2017-03-14] MEDS: SPIRONOLACTONE 100 MG TAB PO SCH ×2 (08:33→20:43)
[2017-03-14] MEDS: hydrALAZINE HCL 25 MG TAB PO SCH ×3 (08:33→17:21)
[2017-03-14] MEDS: BUMETANIDE 1 MG TAB PO SCH ×2 (08:34→20:38)
[2017-03-14] MEDS: BUDESONIDE-FORMOTEROL 160/4.5 MCG INHALER INH SCH ×2 (08:34→20:42)
[2017-03-14] MEDS: methylPREDNISolone SOD SUCC 40 MG/1 ML VIAL IV PUSH SCH ×2 (08:34→20:38)
[2017-03-14] MEDS: SODIUM CHLORIDE 0.9% FLUSH 10 ML FLUSH IV FLUSH SCH ×2 (08:35→20:44)
[2017-03-14] MEDS: AMOXICIL-CLAV 600 MG/5 ML LIQ 125 ML BTL PO SCH ×2 (08:39→20:43)
--- NOTE | 2017-03-14 13:07 | GIPROC ---
[facility] [address] [facility]. [facility] [place], [address] EGD PROCEDURE REPORT EXAM DATE: 03/14/2017 PATIENT NAME: Madan Guerra MR #: [id number] BIRTHDATE: 1960 ATTENDING: Pallavi Narvaez MD ORDER #: [id number] CONSUMER EDUCATOR: Randa Contreras RN STATUS: inpatient INDICATIONS: The patient is a 57 yr old male here for an EGD due to hoarsess , throat pain, anemia PROCEDURE PERFORMED: EGD w/ biopsy MEDICATIONS: Per Anesthesia and None. TOPICAL ANESTHETIC: none CONSENT: The patient understands the risks and benefits of the procedure and understands that these risks include, but are not limited to: sedation, allergic reaction, infection, perforation and/or bleeding. Alternative means of evaluation and treatment include, among others: physical exam, x-rays, and/or surgical intervention. The patient elects to proceed with this endoscopic procedure. medical equipment was checked for proper function. Hand hygiene and appropriate measures for infection prevention was taken. After the risks, benefits and alternatives of the procedure were thoroughly explained, Informed consent was verified, confirmed and timeout was successfully executed by the treatment team. The patient was anesthetized with topical anesthesia and the endoscope was introduced through the mouth and advanced to the second portion of the duodenum. Retroflexed views revealed a hiatal hernia The gastroscope was then slowly withdrawn and removed. Gastritis antrum-biopsy edematous vocal cords esophagitis distal esophagus-biopsy thick fold duodenum second portion-biopsy. ADVERSE EVENTS: There were no complications. IMPRESSIONS: 1. Gastritis antrum-biopsy edematous vocal cords esophagitis distal esophagus-biopsy thick fold duodenum second portion-biopsy 2. Retroflexed views revealed a hiatal hernia RECOMMENDATIONS: 1. Await biopsy results. Biopsy results will not be ready for 7-10 days. If you don't hear from us in two weeks, call our office for biopsy results. 2. Anti-reflux regimen 3. Continue PPI 4. Ent consult colonoscopy-can be done op advance diet PATIENT CONDITION: stable DISPOSITION: Inpatient REPEAT EXAM: Return 3 years EGD Pallavi Narvaez MD eSigned: Pallavi Narvaez MD 03/14/2017 1:06 PM cc: PATIENT NAME: Madan Guerra MR#: [id number]
[2017-03-14] MEDS ORDERED: *RESP: ALBUTEROL 2.5 MG/3 ML NEB (PRN) PERIprocedural Use ONLY NEB ONE (13:25)
[2017-03-14] MEDS ORDERED: ACETAMINOPHEN/HYDROcodone 325 MG/5 MG TAB PO PRN (14:45)
[2017-03-14] MEDS: ACETAMINOPHEN/HYDROcodone 325 MG/10 MG TAB PO PRN ×2 (15:28→20:59)
[2017-03-14] MEDS ORDERED: DO NOT ADM ANY ANTICOAGULANT DRUGS PRN (15:45)
[2017-03-14] MEDS: traZODone HCL 50 MG TAB PO SCH (20:44)
[2017-03-14 20:46] LABS: AUTOMATED NEUTROPHIL # 10.4 TH/MM3 (1.8-7.7); BASOPHIL % 0.2 % (0.0-2.0); EOSINOPHIL % 0.1 % (0.0-4.0); HEMATOCRIT 36.4 % (39.0-51.0); HEMO FLAGS DIFF FINAL; LYMPHOCYTE # 1.8 TH/MM3 (1.0-4.8); MEAN CELL VOLUME 64.4 FL (80.0-100.0); MEAN CORPUSCULAR HEMOGLOBIN 17.8 PG (27.0-34.0); MONO % 9.8 % (0.0-8.0); NEUT % 76.9 % (16.0-70.0); PLATELET COUNT 381 TH/MM3 (150-450); RED BLOOD COUNT 5.65 MIL/MM3 (4.50-5.90); RED CELL DISTRIBUTION WIDTH 20.8 % (11.6-17.2); WHITE BLOOD COUNT 13.6 TH/MM3 (4.0-11.0)
[2017-03-14 20:51] LABS: MEAN CORPUSCULAR HGB CONC 27.6 % (32.0-36.0)
[2017-03-14 20:59] LABS: BICARBONATE 43.3 MEQ/L (21.0-32.0); POTASSIUM 4.8 MEQ/L (3.5-5.1)
[2017-03-14] MEDS ORDERED: PHENOL 1.4% SOLN 180 ML BTL OROPHARYNG ONE (23:15)
[2017-03-14] MEDS ORDERED: ACETAMINOPHEN 325 MG TAB PO ONE (23:15)
[2017-03-15] MEDS: ACETAMINOPHEN/HYDROcodone 325 MG/10 MG TAB PO PRN ×2 (03:10→09:10)
[2017-03-15 04:10] VITALS: BP 144/67; PULSE 87; RESP 22; TEMP 98.3; O2SAT 94
[2017-03-15] MEDS: SODIUM CHLOR 0.9% 1000 ML INJ 1,000 ML IV SCH (07:50)
[2017-03-15 08:00] VITALS: BP 118/68; PULSE 78; RESP 20; TEMP 98.8; O2SAT 95
[2017-03-15] MEDS: INSULIN ASPART SUPPLEMENTAL SCALE SQ SCH ×2 (08:00→12:10)
[2017-03-15] MEDS: ASPIRIN EC 81 MG TABEC PO SCH (09:10)
[2017-03-15] MEDS: methylPREDNISolone SOD SUCC 40 MG/1 ML VIAL IV PUSH SCH (09:10)
[2017-03-15] MEDS: SPIRONOLACTONE 100 MG TAB PO SCH (09:10)
[2017-03-15] MEDS: BUMETANIDE 1 MG TAB PO SCH (09:10)
[2017-03-15] MEDS: PREGABALIN 25 MG CAP PO SCH (09:10)
[2017-03-15] MEDS: SODIUM CHLORIDE 0.9% FLUSH 10 ML FLUSH IV FLUSH SCH (09:10)
[2017-03-15] MEDS: hydrALAZINE HCL 25 MG TAB PO SCH ×2 (09:10→12:10)
[2017-03-15] MEDS: ISOSORBIDE MONONITRATE 30 MG TAB PO SCH (09:10)
[2017-03-15] MEDS: INSULIN DETEMIR 100 UNITS/ML VIAL SQ SCH (09:11)
[2017-03-15 09:37] VITALS: O2SAT 97
[2017-03-15] MEDS: AMOXICIL-CLAV 600 MG/5 ML LIQ 125 ML BTL PO SCH (09:40)
[2017-03-15] MEDS: buPROPion HCL 100 MG TAB PO SCH (09:41)
--- NOTE | 2017-03-15 10:45 | HHI.DS ---
Discharge Summary Admission Date Mar 13, 2017 at 12:27 Discharge Date: Mar 15, 2017 Admitting Diagnosis COPD exacerbation, possible esophageal tear, hyponatremia (1) Gastritis ICD Code: K29.70 - Gastritis, unspecified, without bleeding (2) Esophagitis ICD Code: K20.9 - Esophagitis, unspecified (3) Acute exacerbation of chronic obstructive pulmonary disease (COPD) ICD Code: J44.1 - Chronic obstructive pulmonary disease with (acute) exacerbation Status: Acute (4) Chest pain ICD Code: R07.9 - Chest pain Status: Acute (5) Type 2 diabetes mellitus ICD Code: E11.9 - Type 2 diabetes mellitus without complications Status: Acute (6) Obesity ICD Code: E66.9 - Obesity, unspecified Status: Acute (7) Respiratory distress ICD Code: R06.00 - Dyspnea, unspecified Status: Acute (8) Esophageal reflux ICD Code: K21.9 - Esophageal reflux Status: Acute Procedures EGD Brief History - From Admission 57-year-old male with a past medical history of COPD on 2 L nasal cannula at home, type 2 diabetes mellitus and hypertension presents to the emergency department with chest pain and shortness of breath which he attributes to his throat being swollen. The patient states he is having difficulty swallowing both solids and liquids. He states he feels as though he has "sand spurs in his throat." He denies hemoptysis/hematemesis. He has an EGD scheduled in March at the [place] but states he cannot make it that long. He states the burning in his chest feels like his previous GERD pain. He was found to be newly anemic on CBC with an H&H of 9.9/34.2. Previous H&H one month ago 11.6/ 40.5. He was Hemoccult negative in the emergency department. CBC/BMP: 03/14/17194703/14/171947 Significant Findings Laboratory Tests Test 03/12/17 15:00 03/12/17 16:20 03/13/17 00:40 03/13/17 06:35 White Blood Count 15.6 TH/MM3 (4.0-11.0) Hemoglobin 9.9 GM/DL (13.0-17.0) 10.5 GM/DL (13.0-17.0) 10.6 GM/DL (13.0-17.0) Hematocrit 34.2 % (39.0-51.0) 36.3 % (39.0-51.0) 36.8 % (39.0-51.0) Mean Corpuscular Volume 62.7 FL (80.0-100.0) 63.8 FL (80.0-100.0) Mean Corpuscular Hemoglobin 18.1 PG (27.0-34.0) 18.4 PG (27.0-34.0) Mean Corpuscular Hemoglobin Concent 28.8 % (32.0-36.0) 28.9 % (32.0-36.0) Red Cell Distribution Width 20.9 % (11.6-17.2) 20.7 % (11.6-17.2) Neutrophils (%) (Auto) 74.8 % (16.0-70.0) 93.6 % (16.0-70.0) Neutrophils # (Auto) 11.7 TH/MM3 (1.8-7.7) 9.9 TH/MM3 (1.8-7.7) Monocytes # (Auto) 1.2 TH/MM3 (0-0.9) Blood Urea Nitrogen 30 MG/DL (7-18) 21 MG/DL (7-18) Random Glucose 126 MG/DL (74-106) 166 MG/DL (74-106) Sodium Level 130 MEQ/L (136-145) 134 MEQ/L (136-145) Chloride Level 90 MEQ/L (98-107) 94 MEQ/L (98-107) Carbon Dioxide Level 33.8 MEQ/L (21.0-32.0) 35.7 MEQ/L (21.0-32.0) Estimat Glomerular Filtration Rate 70 ML/MIN (>89) Total Creatine Kinase 26 U/L (39-308) Troponin I LESS THAN 0.02 NG/ML B-Type Natriuretic Peptide 228 PG/ML (0-100) Lymphocytes (%) (Auto) 4.7 % (9.0-44.0) Lymphocytes # (Auto) 0.5 TH/MM3 (1.0-4.8) Anion Gap 4 MEQ/L (5-15) Test 03/14/17 19:48 White Blood Count 13.6 TH/MM3 (4.0-11.0) Hemoglobin 10.1 GM/DL (13.0-17.0) Hematocrit 36.4 % (39.0-51.0) Mean Corpuscular Volume 64.4 FL (80.0-100.0) Mean Corpuscular Hemoglobin 17.8 PG (27.0-34.0) Mean Corpuscular Hemoglobin Concent 27.6 % (32.0-36.0) Red Cell Distribution Width 20.8 % (11.6-17.2) Neutrophils (%) (Auto) 76.9 % (16.0-70.0) Monocytes (%) (Auto) 9.8 % (0.0-8.0) Neutrophils # (Auto) 10.4 TH/MM3 (1.8-7.7) Monocytes # (Auto) 1.3 TH/MM3 (0-0.9) Blood Urea Nitrogen 30 MG/DL (7-18) Creatinine 1.38 MG/DL (0.60-1.30) Random Glucose 148 MG/DL (74-106) Sodium Level 134 MEQ/L (136-145) Chloride Level 90 MEQ/L (98-107) Carbon Dioxide Level 43.3 MEQ/L (21.0-32.0) Anion Gap 1 MEQ/L (5-15) Estimat Glomerular Filtration Rate 53 ML/MIN (>89) Imaging Last Impressions Upper GI/Barium Swallow X-Ray 03/13/17 0000 Signed Impressions: Service Date/Time: Monday, March 13, 2017 09:38 - CONCLUSION: Unremarkable examination of the esophagus. Alexei Medina MD Neck CT 03/12/17 1624 Signed Impressions: Service Date/Time: Sunday, March 12, 2017 17:48 - CONCLUSION: 1. Chronic sinusitis in the maxillary antra, right worse than left. 2. Otherwise, nothing acute. Eber Weeks MD Chest X-Ray 03/12/17 1507 Signed Impressions: Service Date/Time: Sunday, March 12, 2017 15:29 - CONCLUSION: No acute disease. Jose Tim Jr., MD Soft Tissue Neck X-Ray 03/12/17 0000 Signed Impressions: Service Date/Time: Sunday, March 12, 2017 15:34 - CONCLUSION: Limited exam. Subcutaneous emphysema cannot be entirely excluded. Mario Pablo MD FACR PE at Discharge GENERAL: Sitting up in bed. Appears to be breathing comfortably.. Alert and oriented 3 SKIN: Warm and dry. HEAD: Normocephalic. EYES: No scleral icterus. No injection or drainage. NECK: Supple, trachea midline. No JVD. CARDIOVASCULAR: Regular rate and rhythm without murmurs, gallops, or rubs. RESPIRATORY: Breath sounds equal bilaterally. No accessory muscle use. GASTROINTESTINAL: Abdomen distended. Nontender. Positive bowel sounds. MUSCULOSKELETAL: No cyanosis, or edema. BACK: Nontender without obvious deformity. No CVA tenderness. Pt update on day of discharge eekarla much better wants to go home. says she wants normal regular food. no fever ro chills.No n/v/d/c. sore throat better controlled. He however says he takes pain meds at home q4 hrs. Hospital Course 57-year-old male with past medical history significant for COPD, hypertension, insulin-dependent diabetes mellitus and JEFF presents with throat pain and difficulty breathing, chest pain and shortness of breath. Patient presented with Throat pain/chest pain, sob. Patient presents with sharp burning midsternal/upper epigastric pain and new anemia, concern for new esophageal injury, possible bleed Also complains of throat swelling making it difficult to breathe, improved. Rapid Strep test is negative. Consult gastroenterology s/p EGD with gastritis and esophagitis biopsies taken to follow up as OP with GI. To have colonoscopy as OP. Patient also with copd exacerbation, poss aspiration PNA, treated with antibiotic. He is on 2L NC at home, continue O2 supplement. Improved follow up as OP with PCP and consultants. Pt Condition on Discharge: Stable Discharge Disposition: Discharge Home Discharge Time: > 30 minutes Discharge Instructions DIET: Follow Instructions for: Heart Healthy Diet, Diabetic Diet Activities you can perform: Regular-No Restrictions Follow up Referrals: Gastroenterology - 2 Weeks PCP Follow-up - 2-3 Days Pulmonology - 3 Weeks New Medications: Amoxicillin-Clavulanate (Augmentin) 875-125 Mg Tab 1 TAB PO BID for Infection, #10 TAB 0 Refills Hydrocodone-Acetaminophen ([place]) 5 Mg-325 Mg Tab 1 TAB PO Q6H PRN for PAIN, #10 TAB 0 Refills Lactobacillus Acidophilus (Lactinex) 1 Chew 1 TAB CHEW DAILY for Nutritional Supplement, #30 TAB 0 Refills Prednisone (21) 10 mg tab Dose Pack (Prednisone (21) 10 mg tab Dose Pack) 10 Mg Pack 10 MG PO DIRECTED for Inflammation, #1 DSPK 0 Refills Changed Medications: Omeprazole (Omeprazole) 20 Mg Tab 40 MG PO DAILY for gerd, #30 TAB 0 Refills (Changed from: 20 MG) Continued Medications: Albuterol 18 GM Inh (Ventolin Hfa 18 GM Inh) 90 Mcg/Act Aer 1 PUFF INH Q4H PRN for MILD/MODERATE SOB/WHEEZING, #1 INHALER [address] (Aspirin DR) 81 Mg Tabdr 81 MG PO DAILY, TAB 0 Refills Bisacodyl Supp (Dulcolax Supp) 10 Mg Supp 10 MG RECTAL DAILY PRN for CONSTIPATION, #12 SUPP 0 Refills Bumetanide (Bumetanide) 2 Mg Tab 2 MG PO BID for EDEMA for 90 Days, TAB 9 Refills Bupropion HCl (Bupropion HCl) 100 Mg Tab 100 MG PO DAILY for Control Depression, TAB 0 Refills Fluticasone-Salmeterol Inh (Advair Diskus Inh) 250-50 Mcg/Blist Aer 2 PUFF INH BID, #1 INHALER 0 Refills Rinse mouth after use. Hydralazine HCl (Hydralazine HCl) 25 Mg Tablet 25 MG PO TID for Blood Pressure Management, #90 TAB 0 Refills Insulin Glargine Inj (Lantus Inj) 1,000 Unit/10 Ml Vial 80 UNITS SQ BID for Blood Sugar Management, VIAL 0 Refills Ipratropium-Albuterol Neb (Duoneb) 0.5-2.5 Mg/3 Ml Neb 1 NEBULE NEB Q4HR NEB PRN for SHORTNESS OF BREATH, #30 NEBULE 0 Refills Isosorbide Mononitrate ER (Isosorbide Mononitrate ER) 30 Mg Alexsander 30 MG PO DAILY for Prevent Chest Pain, #30 TAB 0 Refills Oxygen (O2) (Oxygen (O2)) Device 2 LITER JACQUELINE.CANULA CONTINUOUS for Prevent Hypoxemia, #2 CYLINDER Oxygen Concentrator Portable Gaseous 2 L/min via Nasal Canula Continuous For 99 months Oxygen tank (Oxygen tank) 1 Ea Tank 2 LITER JACQUELINE.CANULA CONTINUOUS for HYPOXEMIA PREVENTION, #1 CYLINDER Oxygen Concentrator Portable Gaseous 2 L/min via Nasal Cannula Continuous For 99 months Pregabalin (Lyrica) 50 Mg Cap 50 MG PO DAILY, #30 CAP 0 Refills Sennosides-Docusate Sodium (Senna S) 8.6-50 Mg Tab 1-2 TAB PO Q12HR PRN for CONSTIPATION Spironolactone (Spironolactone) 100 Mg Tab 100 MG PO BID, #60 TAB 0 Refills Tramadol (Tramadol) 50 Mg Tab 50 MG PO Q4H PRN for PAIN, TAB 0 Refills Trazodone (Trazodone) 50 Mg Tab 50 MG PO HS for Control Depression, #30 TAB 0 Refills Sharee Oliva MD Mar 15, 2017 10:45
[2017-03-15] MEDS ORDERED: AUGM875T3 PO (10:49)
[2017-03-15] MEDS ORDERED: PRED10PA PO (10:49)
[2017-03-15] MEDS ORDERED: OMEP20TA93 PO (10:49)
[2017-03-15] MEDS ORDERED: LACTCHW3 CHEW (10:49)
[2017-03-15] MEDS ORDERED: NORC5TAB PO (10:49)
[2017-03-15] MEDS: BUDESONIDE-FORMOTEROL 160/4.5 MCG INHALER INH SCH (10:59)
[2017-03-15 12:00] VITALS: BP 141/73; PULSE 94; RESP 20; TEMP 97.4; O2SAT 96
== END 2017-03-15 12:58 | disposition home or self-care (01) | DRG 391 ==
LOC: NEPC 14:25 → NEDA 19:12 → NEPHCDU 20:32 → OBSVTOIN 03-13 12:27 → N04B 03-14 22:38
PROVIDERS: ADMIT Hospitalist; ATTEND Hospitalist
PROC: 0DB78ZX Excision of Stomach, Pylorus, Via Natural or Artificial Opening Endoscopic, Diagnostic (ICD-10-PCS; 2017-03-14)
PROC: 0DB38ZX Excision of Lower Esophagus, Via Natural or Artificial Opening Endoscopic, Diagnostic (ICD-10-PCS; 2017-03-14)
PROC: 0DB98ZX Excision of Duodenum, Via Natural or Artificial Opening Endoscopic, Diagnostic (ICD-10-PCS; principal; 2017-03-14 12:34)
DX: K21.0 Gastro-esophageal reflux disease with esophagitis (principal); J69.0 Pneumonitis due to inhalation of food and vomit; R13.10 Dysphagia, unspecified; Z99.81 Dependence on supplemental oxygen; I11.0 Hypertensive heart disease with heart failure; I50.9 Heart failure, unspecified; E87.1 Hypo-osmolality and hyponatremia; J44.1 Chronic obstructive pulmonary disease with (acute) exacerbation; E11.9 Type 2 diabetes mellitus without complications; D64.9 Anemia, unspecified; E66.9 Obesity, unspecified; F41.9 Anxiety disorder, unspecified; F17.210 Nicotine dependence, cigarettes, uncomplicated; G47.33 Obstructive sleep apnea (adult) (pediatric); K59.09 Other constipation; K29.70 Gastritis, unspecified, without bleeding; R06.03 Acute respiratory distress; E78.00 Pure hypercholesterolemia, unspecified; Z79.4 Long term (current) use of insulin; Z91.19 Patient's noncompliance with other medical treatment and regimen
CPT/HCPCS: 70360; 70491; 71010; 74220; 80048; 80053; 81001; 82550; 82948; 83735; 83880; 84484; 85014; 85018; 85025; 85610; 85730; 87081; 87804; 87880; 88305; 88312; 88342; 93005; 94640; 94664; 96365; 96375; J1170; G0378; J1815; J2270; J2543; J2920; J2930; J7030; J7613; Q9963; Q9967

== ENCOUNTER 2017-06-11 18:48 | Inpatient (IN) | payer OTHER ==
[2017-06-11] VITALS (7 sets, daily range): BP systolic 106–121; BP diastolic 67–79; PULSE 79–136; RESP 18–28; TEMP 98.3–98.5; O2SAT 81–95
[~2017-06-11 18:48] MED LIST changes: +LACTCHW3 CHEW; +NORC5TAB PO; +PRED10PA PO
--- NOTE | 2017-06-11 19:26 | PD ---
HPI Chief Complaint: Respiratory Symptoms Time Seen by Provider: 19:21 Travel History International Travel<30 days: No Contact w/Intl Traveler<30days: No Traveled to known affect area: No History of Present Illness HPI 57-year-old male presents to the emergency department for complaint of progressive shortness of breath 1 day after recent hospitalization 1 week ago at [facility] for similar symptoms. Patient states during that hospitalization he did require intubation and was on a ventilator. Patient states medications were adjusted and he does not know how they were adjusted or what was added or removed from his medication list. Patient denies any fever chills or productive cough. Patient does not know if he has a history of a rapid or irregular heartbeat. Patient states his only blood thinning agent is aspirin. Patient has a known history of COPD on supplemental oxygen 2 L/min nasal cannula at all times sleep apnea and is supposed to be on CPAP at night as well as recurrent episodes of CHF. Patient states during his last hospitalization he was admitted because of too much swelling. Patient does note increased swelling beyond his chronic bilateral lower extremity swelling. Patient also denies any fever or chills. Patient complains of generalized pain and is requesting pain medication but does not complain specifically of chest pain. PFSH Past Medical History Narrative Medical COPD CHF morbid obesity sleep apnea; tobacco use; nursing notes reviewed Hx Anticoagulant Therapy: Yes (ASPIRIN) Arthritis: No Asthma: Yes Autoimmune Disease: No Blood Disorders: No Anxiety: Yes Depression: No Heart Rhythm Problems: No Cancer: No Cardiac Catheterization: Yes Cardiovascular Problems: Yes High Cholesterol: Yes Chest Pain: Yes Congestive Heart Failure: Yes COPD: Yes Cerebrovascular Accident: No Coronary Artery Disease: No Diabetes: Yes (DM II) Patient Takes Glucophage: No Diminished Hearing: No Endocrine: Yes Gastrointestinal Disorders: Yes GERD: Yes Genitourinary: No Headaches: Yes Hiatal Hernia: No Hypertension: Yes Immune Disorder: No Implanted Vascular Access Dvce: No Musculoskeletal: Yes Neurologic: Yes Psychiatric: Yes Reproductive: No Respiratory: Yes (COPD) Migraines: No Seizures: Yes Sleep Apnea: Yes Thyroid Disease: No Ulcer: No Past Surgical History Abdominal Surgery: No Cardiac Surgery: Yes (cardiac cath) Coronary Artery Bypass Graft: No Other Surgery: Yes (wart removed right leg) Social History Alcohol Use: No Tobacco Use: Yes (04/17 PPD) Substance Use: No Allergies-Medications (Allergen,Severity, Reaction): Coded Allergies: No Known Allergies (Verified Allergy, Unknown, 06/11/17) Reported Meds & Prescriptions Reported Meds & Active Scripts Active Omeprazole 20 Mg Tab 40 Mg PO DAILY Oxygen (O2) Device 2 Liter JACQUELINE.CANULA CONTINUOUS Oxygen Concentrator Portable Gaseous 2 L/min via Nasal Canula Continuous For 99 months Oxygen tank (Oxygen) 1 Ea Tank 2 Liter JACQUELINE.CANULA CONTINUOUS Oxygen Concentrator Portable Gaseous 2 L/min via Nasal Cannula Continuous For 99 months Reported Lyrica (Pregabalin) 50 Mg Cap 50 Mg PO DAILY Tramadol (Tramadol HCl) 50 Mg Tab 50 Mg PO Q4H PRN Spironolactone 100 Mg Tab 100 Mg PO BID Ventolin Hfa 18 GM Inh (Albuterol Sulfate) 90 Mcg/Act Aer 1 Puff INH Q4H PRN Dulcolax Supp (Bisacodyl) 10 Mg Supp 10 Mg RECTAL DAILY PRN Senna S (Sennosides-Docusate Sodium) 8.6-50 Mg Tab 1-2 Tab PO Q12HR PRN Lantus Inj (Insulin Glargine) 1,000 Unit/10 Ml Vial 80 Units SQ BID Advair Diskus Inh (Fluticasone-Salmeterol Inh) 250-50 Mcg/Blist Aer 2 Puff INH BID Rinse mouth after use. Aspirin DR (Aspirin) 81 Mg Tabdr 81 Mg PO DAILY Hydralazine HCl 25 Mg Tablet 25 Mg PO TID Isosorbide Mononitrate ER (Isosorbide Mononitrate) 30 Mg Alexsander 30 Mg PO DAILY Duoneb (Ipratropium-Albuterol Neb) 0.5-2.5 Mg/3 Ml Neb 1 Nebule NEB Q4HR NEB PRN Bupropion HCl 100 Mg Tab 100 Mg PO DAILY Review of Systems Except as stated in HPI: all other systems reviewed are Neg Physical Exam Narrative GENERAL: Morbidly obese male in obvious respiratory distress with O2 saturation 89% on 2 L/min nasal cannula and 93% on 3 L/min nasal cannula SKIN: Warm and dry. HEAD: Normocephalic. EYES: No scleral icterus. No injection or drainage. NECK: Supple, trachea midline. No JVD or lymphadenopathy. CARDIOVASCULAR: Regular rate and rhythm without murmurs, gallops, or rubs. RESPIRATORY: Breath sounds equal bilaterally bilateral crackles right greater than left and rhonchi. No accessory muscle use. GASTROINTESTINAL: Abdomen soft, non-tender, nondistended. MUSCULOSKELETAL: No cyanosis; bilateral lower extremity edema. BACK: Nontender without obvious deformity. No CVA tenderness. Data Data Last Documented VS Vital Signs Date Time Temp Pulse Resp B/P (MAP) Pulse Ox O2 Delivery O2 Flow Rate FiO2 06/11/17 20:43 97 18 106/67 (80) 93 Nasal Cannula 2.00 06/11/17:18 98.5 Orders Orders Electrocardiogram (06/11/17 19:07) Basic Metabolic Panel (Bmp) (06/11/17 19:07) B-Type Natriuretic Peptide (06/11/17 19:07) Ckmb (Isoenzyme) Profile (06/11/17 19:07) Complete Blood Count With Diff (06/11/17 19:07) Magnesium (Mg) (06/11/17 19:07) Prothrombin Time / Inr (Pt) (06/11/17 19:07) Act Partial Throm Time (Ptt) (06/11/17 19:07) Troponin I (06/11/17 19:07) Lipase (06/11/17 19:07) Oxygen Administration (06/11/17 19:07) Chest, Single Ap (06/11/17 ) Blood Culture (06/11/17 19:22) Lactic Acid (06/11/17 19:22) Ecg Monitoring (06/11/17 19:22) Blood Pressure (06/11/17 19:22) Iv Access Insert/Monitor (06/11/17 19:22) Oximetry (06/11/17 19:22) Vital Signs (06/11/17 19:22) Diltiazem Inj (Cardizem Inj) (06/11/17 19:30) Diltiazem Inj (Cardizem Inj) (06/11/17 19:30) Sodium Chloride 0.9% Flush (Ns Flush) (06/11/17 19:30) Albuterol-Ipratropium Neb (Duoneb Neb) (06/11/17 19:30) Methylprednisolone So Succ Inj (Solumedr (06/11/17 19:30) Furosemide Inj (Lasix Inj) (06/11/17 19:45) Ketorolac Inj (Toradol Inj) (06/11/17 20:15) Arterial Blood Gas (Abg) (06/11/17 ) Albuterol-Ipratropium Neb (Duoneb Neb) (06/11/17 20:30) Hemoglobin (Hgb) (06/11/17 20:43) Nitroglycerin 2% Oint (Nitroglycerin 2% (06/11/17 21:00) Place In Observation (06/11/17 ) Vital Signs (Adult) Q4H (06/11/17 20:50) Activity Oob With Assistance (06/11/17 20:50) Bedside Glucose ARIEL.CSUGAR (06/11/17 20:50) Bus Greaser / Telemetry .CONTINUOUS (06/11/17 20:50) Diet Diabetic (06/12/17 Breakfast) Sodium Chloride 0.9% Flush (Ns Flush) (06/11/17 21:00) Sodium Chloride 0.9% Flush (Ns Flush) (06/11/17 21:00) Acetaminophen (Tylenol) (06/11/17 21:00) Ondansetron Inj (Zofran Inj) (06/11/17 21:00) Basic Metabolic Panel (Bmp) (06/12/17 06:00) Complete Blood Count With Diff (06/12/17 06:00) Troponin I (06/12/17 07:00) Resp Oxygen Jacqueline C Titrat 1-4 L (06/11/17 ) Pt Request For Service (06/11/17 20:50) Zolpidem (Ambien) (06/11/17 21:00) Heparin Inj (Heparin Inj) (06/11/17 21:00) Scd Bilateral/Knee High ARIEL.BID (06/11/17 20:50) Stefano Bilateral/Knee High ARIEL.QSHIFT (06/11/17 21:00) Naloxone Inj (Narcan Inj) (06/11/17 21:00) Docusate Sodium-Senna (Amira-Colace) (06/11/17 21:00) Magnesium Hydroxide Liq (Milk Of Magnesi (06/11/17 21:00) Sennosides (Senokot) (06/11/17 21:00) Bisacodyl Supp (Dulcolax Supp) (06/11/17 21:00) Lactulose Liq (Lactulose Liq) (06/11/17 21:00) Lorazepam (Ativan) (06/11/17 21:00) Clonidine (Catapres) (06/11/17 21:00) Haloperidol Inj (Haldol Inj) (06/11/17 21:00) Furosemide Inj (Lasix Inj) (06/12/17 09:00) Morphine Inj (Morphine Inj) (06/11/17 21:00) Nitroglycerin 2% Oint (Nitroglycerin 2% (06/12/17 00:00) Pantoprazole Inj (Protonix Inj) (06/11/17 22:00) Consult Cardiology (06/11/17 ) Admit Order (Ed Use Only) (06/11/17 ) Bus Greaser / Telemetry ARIEL.Q8H (06/11/17 20:57) Activity Bed Rest (06/11/17 20:57) Notify Dr: Other (06/11/17 20:57) Oxycodone-Acetamin 10-325 Mg (Percocet 1 (06/11/17 21:00) Methylprednisolone So Succ Inj (Solumedr (06/12/17 00:00) Labs Laboratory Tests Test 06/11/17 19:24 06/11/17 19:30 06/11/17 20:30 White Blood Count 8.6 TH/MM3 Red Blood Count 5.04 MIL/MM3 Hemoglobin 9.8 GM/DL Hematocrit 34.9 % Mean Corpuscular Volume 69.3 FL Mean Corpuscular Hemoglobin 19.4 PG Mean Corpuscular Hemoglobin Concent 28.0 % Red Cell Distribution Width 26.8 % Platelet Count 247 TH/MM3 Mean Platelet Volume 8.3 FL Neutrophils (%) (Auto) 70.1 % Lymphocytes (%) (Auto) 16.7 % Monocytes (%) (Auto) 10.6 % Eosinophils (%) (Auto) 1.7 % Basophils (%) (Auto) 0.9 % Neutrophils # (Auto) 6.0 TH/MM3 Lymphocytes # (Auto) 1.4 TH/MM3 Monocytes # (Auto) 0.9 TH/MM3 Eosinophils # (Auto) 0.1 TH/MM3 Basophils # (Auto) 0.1 TH/MM3 CBC Comment AUTO DIFF Differential Comment AUTO DIFF CONFIRMED Platelet Estimate NORMAL Platelet Morphology Comment NORMAL Tear Drop Cells 1+ Ovalocytes 1+ Stomatocytes 1+ Prothrombin Time 10.6 SEC Prothromb Time International Ratio 1.0 RATIO Activated Partial Thromboplast Time 27.0 SEC Blood Urea Nitrogen 17 MG/DL Creatinine 0.86 MG/DL Random Glucose 102 MG/DL Calcium Level 9.0 MG/DL Magnesium Level 2.1 MG/DL Sodium Level 135 MEQ/L Potassium Level 4.1 MEQ/L Chloride Level 96 MEQ/L Carbon Dioxide Level 37.2 MEQ/L Anion Gap 2 MEQ/L Estimat Glomerular Filtration Rate 92 ML/MIN Total Creatine Kinase 13 U/L Troponin I 0.11 NG/ML B-Type Natriuretic Peptide 181 PG/ML Lipase 83 U/L Lactic Acid Level 0.9 mmol/L Blood Gas Puncture Site RT RADIAL Blood Gas Patient Temperature 98.6 Blood Gas HCO3 33 mmol/L Blood Gas Base Excess 7.9 mmol/L Blood Gas Oxygen Saturation 85 % Arterial Blood pH 7.37 Arterial Blood Partial Pressure CO2 58 mmHg Arterial Blood Partial Pressure O2 59 mmHG Arterial Blood Oxygen Content 11.1 Vol % Arterial Blood Carboxyhemoglobin 5.5 % Arterial Blood Methemoglobin 0.6 % Blood Gas Hemoglobin 9.3 G/DL Oxygen Delivery Device NASAL CANNULA Blood Gas Liter Flow 3 L/M MDM Medical Decision Making Medical Screen Exam Complete: Yes Emergency Medical Condition: Yes Medical Record Reviewed: Yes Interpretation(s) EKG: Atrial flutter with 2-1 tachycardia rate 135 rapid ventricular response with no acute ST elevation or injury pattern or ectopy noted CBC & BMP Diagram 06/11/17 19:24 Calcium Level 9.0, Magnesium Level 2.1 Vital Signs Date Time Temp Pulse Resp B/P (MAP) Pulse Ox O2 Delivery O2 Flow Rate FiO2 06/11/17 20:43 97 18 106/67 (80) 93 Nasal Cannula 2.00 06/11/17 20:34 97 18 106/72 (83) 93 06/11/17 20:34 107 20 93 Nasal Cannula 3.00 06/11/17 20:08 110 137/67 06/11/17 19:18 91 Nasal Cannula 06/11/17 19:18 98.5 135 20 121/79 (93) 93 Nasal Cannula 06/11/17 18:56 98.3 136 28 117/72 (87) 81 Troponin I is elevated 0.11; BNP is elevated at 181 ABG shows pH of seven-point Differential Diagnosis Dyspnea, CHF, exacerbation COPD, PE, pneumonia, respiratory failure, hypoxemia, A. fib with RVR, electrolytic disturbance, ACS, LA Narrative Course Patient placed on vehicle trimmer IV access obtained supple oxygen administered patient given DuoNeb updrafts and diuresis with Lasix Patient resting comfortably but continues to have low O2 saturations change to BiPAP Patient sleeping and resting comfortably case discussed with on-call medicine for admission patient identified to have elevated troponin I 0.11 as well as atrial fibrillation with RVR requiring Cardizem bolus and infusion Patient refuses to keep BiPAP in place and change to nasal cannula sats remain 92-93% on 2 L/min nasal cannula patient typically is on 2 L/min nasal cannula at all times Patient admitted to [facility] Critical Care Narrative Aggregate critical care time was 35 minutes. Time to perform other separately billable procedures was not included in the critical care time. My time did not include minutes spent treating any other patients simultaneously or on activities that did not directly contribute to the patient's treatment. The services I provided to this patient were to treat and/or prevent clinically significant deterioration that could result in: Respiratory failure respiratory arrest myocardial infarction I provided critical care services requiring my management, as noted below: Chart data review, documentation time, medication orders and management, vital sign assessments/reviewing monitor data, ordering and reviewing lab tests, ordering and interpreting/reviewing x-rays and diagnostic studies, care of the patient and discussion of the patient with the admitting physicians. Physician Communication Physician Communication discussed with Dr Riley for admission Diagnosis Primary Impression: CHF (congestive heart failure) Additional Impressions: Acute exacerbation of chronic obstructive pulmonary disease (COPD) Atrial fibrillation and flutter Admitting Information Admitting Physician Requests: Admit Key Petersen MD Jun 11, 2017 19:26
[2017-06-11] MEDS ORDERED: DILTIAZEM HCL 25 MG/5 ML VIAL IV PUSH ONE (19:30)
[2017-06-11] MEDS ORDERED: RESP: ALBUTEROL 2.5 MG/IPRATROPIUM 0.5 MG NEB (SCH) NEB ONE ×2 (19:30→20:30)
[2017-06-11] MEDS ORDERED: DILTIAZEM INJ 125 MG in SODIUM CHLORIDE 0.9% INJ 100 ML IV PRN (19:30)
[2017-06-11] MEDS ORDERED: SODIUM CHLORIDE 0.9% FLUSH 10 ML FLUSH IV FLUSH PRN ×3 (19:30→21:15)
[2017-06-11] MEDS ORDERED: methylPREDNISolone SOD SUCC 125 MG/2 ML VIAL IV PUSH ONE (19:30)
[2017-06-11] MEDS ORDERED: FUROSEMIDE 40 MG/4 ML VIAL IV PUSH ONE (19:45)
[2017-06-11 19:54] LABS: BASOPHIL # 0.1 TH/MM3 (0-0.2); BASOPHIL % 0.9 % (0.0-2.0); EOSINOPHIL # 0.1 TH/MM3 (0-0.4); EOSINOPHIL % 1.7 % (0.0-4.0); HEMATOCRIT 34.9 % (39.0-51.0); HEMOGLOBIN 9.8 GM/DL (13.0-17.0); LYMPH % 16.7 % (9.0-44.0); LYMPHOCYTE # 1.4 TH/MM3 (1.0-4.8); MEAN CELL VOLUME 69.3 FL (80.0-100.0); MEAN CORPUSCULAR HEMOGLOBIN 19.4 PG (27.0-34.0); MEAN PLATELET VOLUME 8.3 FL (7.0-11.0); MONO % 10.6 % (0.0-8.0); MONOCYTE # 0.9 TH/MM3 (0-0.9); NEUT % 70.1 % (16.0-70.0); PLATELET COUNT 247 TH/MM3 (150-450); RED BLOOD COUNT 5.04 MIL/MM3 (4.50-5.90); RED CELL DISTRIBUTION WIDTH 26.8 % (11.6-17.2); WHITE BLOOD COUNT 8.6 TH/MM3 (4.0-11.0)
[2017-06-11 20:07] LABS: PROTHROMBIN TIME - PATIENT 10.6 SEC (9.8-11.6)
[2017-06-11 20:09] LABS: BICARBONATE 37.2 MEQ/L (21.0-32.0); CREATININE 0.86 MG/DL (0.60-1.30); MAGNESIUM 2.1 MG/DL (1.5-2.5)
[2017-06-11 20:13] LABS: TROPONIN I 0.11 NG/ML (0.02-0.05)
[2017-06-11] MEDS ORDERED: KETOROLAC TROMETHAMINE 30 MG/ML (IVP) VIAL IV PUSH ONE (20:15)
--- NOTE | 2017-06-11 20:26 | RADRPT ---
EXAM DATE/TIME: 06/11/2017 19:33 [place] COMPARISON: No previous studies available for comparison. INDICATIONS : Patient is experiencing shortness of breath. MEDICAL HISTORY : Hypertension. Diabetes mellitus type I. Chronic obstructive pulmonary disease. Congestive heart failure SURGICAL HISTORY : ENCOUNTER: Initial ACUITY: 1 day PAIN SCORE: 6/10 LOCATION: Bilateral upper chest FINDINGS: A single view of the chest demonstrates the lungs to be symmetrically aerated without evidence of mas s, infiltrate or effusion. Mild basilar atelectasis. The cardiomediastinal contours are unremarkable. Osseous structures are intact. CONCLUSION: 1. Minimal basilar atelectasis. Jaime Amaya MD on June 11, 2017 at 20:24 Board Certified Radiologist. This report was verified electronically.
[2017-06-11] MEDS ORDERED: BISACODYL 10 MG SUPP RECTAL PRN (21:00)
[2017-06-11] MEDS ORDERED: HALOPERIDOL LACTATE 5 MG/ML AMP IM PRN (21:00)
[2017-06-11] MEDS ORDERED: LACTULOSE SYRUP 20 GM/30 ML CUP PO PRN (21:00)
[2017-06-11] MEDS ORDERED: DOCUSATE SODIUM 50 MG/SENNA 8.6 MG TAB PO SCH (21:00)
[2017-06-11] MEDS ORDERED: MORPHINE SULFATE 8 MG/ML INJ IV PUSH PRN (21:00)
[2017-06-11] MEDS ORDERED: ZOLPIDEM TARTRATE 5 MG TAB PO PRN (21:00)
[2017-06-11] MEDS ORDERED: NALOXONE HCL 0.4 MG/ML AMP IV PUSH PRN (21:00)
[2017-06-11] MEDS ORDERED: NITROGLYCERIN 2% OINT 1 GM PACKET TOPICAL ONE (21:00)
[2017-06-11] MEDS ORDERED: SENNOSIDES 8.6 MG TAB PO PRN (21:00)
[2017-06-11] MEDS ORDERED: HEPARIN SODIUM - SQ 10,000 UNITS/ML VIAL SQ SCH (21:00)
[2017-06-11] MEDS ORDERED: ONDANSETRON HCL 4 MG/2 ML VIAL IVP PRN (21:00)
[2017-06-11] MEDS ORDERED: ACETAMINOPHEN 325 MG TAB PO PRN (21:00)
[2017-06-11] MEDS ORDERED: cloNIDine HCL 0.1 MG TAB PO PRN (21:00)
[2017-06-11] MEDS ORDERED: LORazepam 0.5 MG TAB PO PRN (21:00)
[2017-06-11] MEDS: SODIUM CHLORIDE 0.9% FLUSH 10 ML FLUSH IV FLUSH SCH (21:18)
[2017-06-11] MEDS ORDERED: ASPIRIN 81 MG CHEW TAB CHEW ONE (21:30)
[2017-06-11] MEDS: PANTOPRAZOLE SODIUM 40 MG VIAL IV PUSH SCH (21:37)
[2017-06-11 21:38] LABS: OVALOCYTES 1+ (NORMAL); TEARDROP RBCS 1+ (NORMAL)
[2017-06-11 21:39] LABS: STOMATOCYTES 1+ (NORMAL)
[2017-06-11] MEDS: ENOXAPARIN SODIUM 120 MG/0.8 ML SYRINGE SQ SCH (21:39)
[2017-06-12] VITALS (23 sets, daily range): BP systolic 108–138; BP diastolic 55–91; PULSE 75–113; RESP 20–22; TEMP 98.2–99; O2SAT 80–94
[2017-06-12] MEDS: methylPREDNISolone SOD SUCC 125 MG/2 ML VIAL IV PUSH SCH ×5 (00:42→23:05)
[2017-06-12] MEDS: NITROGLYCERIN 2% OINT 1 GM PACKET TOPICAL SCH ×5 (00:43→23:04)
[2017-06-12] MEDS: oxyCODONE/ACETAMINOPHEN 10 MG/325 MG TAB PO PRN ×3 (00:59→08:37)
[2017-06-12] MEDS: DILTIAZEM INJ 125 MG in SODIUM CHLORIDE 0.9% INJ 100 ML IV PRN (04:07)
[2017-06-12 06:59] LABS: AUTOMATED NEUTROPHIL # 5.7 TH/MM3 (1.8-7.7); BASOPHIL % 0.1 % (0.0-2.0); EOSINOPHIL % 0.1 % (0.0-4.0); HEMATOCRIT 34.8 % (39.0-51.0); HEMOGLOBIN 9.9 GM/DL (13.0-17.0); LYMPH % 6.6 % (9.0-44.0); LYMPHOCYTE # 0.4 TH/MM3 (1.0-4.8); MEAN CORPUSCULAR HEMOGLOBIN 19.8 PG (27.0-34.0); MEAN PLATELET VOLUME 8.2 FL (7.0-11.0); MONO % 0.7 % (0.0-8.0); NEUT % 92.5 % (16.0-70.0); PLATELET COUNT 241 TH/MM3 (150-450); RED BLOOD COUNT 4.97 MIL/MM3 (4.50-5.90); WHITE BLOOD COUNT 6.2 TH/MM3 (4.0-11.0)
[2017-06-12 07:02] LABS: MEAN CORPUSCULAR HGB CONC 28.3 % (32.0-36.0)
[2017-06-12 07:30] LABS: BICARBONATE 32.6 MEQ/L (21.0-32.0); CALCIUM 8.9 MG/DL (8.5-10.1); CREATININE 1.12 MG/DL (0.60-1.30)
[2017-06-12] MEDS: FUROSEMIDE 40 MG/4 ML VIAL IV PUSH SCH ×2 (08:37→17:16)
[2017-06-12] MEDS ORDERED: SODIUM CHLORIDE 0.9% FLUSH 10 ML FLUSH IV FLUSH SCH (09:00)
[2017-06-12] MEDS ORDERED: ASPIRIN 81 MG CHEW TAB CHEW SCH (09:00)
[2017-06-12] MEDS: SODIUM CHLORIDE 0.9% FLUSH 10 ML FLUSH IV FLUSH SCH ×2 (09:00→20:56)
[2017-06-12] MEDS ORDERED: GLUCAGON 1 MG/ML VIAL OTHER PRN ×2 (09:15→13:00)
[2017-06-12] MEDS ORDERED: DEXTROSE 50% IN WATER 50 ML VIAL(D50) IV PUSH PRN ×2 (09:15→09:45)
[2017-06-12] MEDS ORDERED: HIGH DOSE INSULIN NOVOLOG SUPPLEMENTAL SCALE SQ SCH (09:30)
[2017-06-12] MEDS ORDERED: MAGNESIUM SULFATE INJ 4 GM in SODIUM CHLORIDE 0.9% INJ 92 ML IV PRN (09:45)
[2017-06-12] MEDS ORDERED: POTASSIUM PHOSPHATE MONOBASIC 500 MG TAB PO/TUBE PRN (09:45)
[2017-06-12] MEDS ORDERED: MISCELLANEOUS NURSING INFORMATION XX SCH (09:45)
[2017-06-12] MEDS ORDERED: POTASSIUM CHLOR 40 MEQ PREMIX 100 ML IV PRN ×2 (09:45)
[2017-06-12] MEDS ORDERED: POTASSIUM PHOSPHATE INJ 30 MMOL in SODIUM CHLOR 0.9% 250 ML INJ 250 ML IV PRN (09:45)
[2017-06-12] MEDS ORDERED: LACTULOSE SYRUP 20 GM/30 ML CUP PO PRN (09:45)
[2017-06-12] MEDS ORDERED: SODIUM PHOSPHATE INJ 30 MMOL in SODIUM CHLOR 0.9% 250 ML INJ 240 ML IV PRN (09:45)
[2017-06-12] MEDS ORDERED: RESP: ALBUTEROL 2.5 MG/3 ML NEB (PRN) NEB (09:45)
[2017-06-12] MEDS ORDERED: BISACODYL 10 MG SUPP RECTAL PRN (09:45)
[2017-06-12] MEDS ORDERED: CHLORHEXIDINE GLUCONATE 2 % 1 PACK (2 CLOTHS) TOP PRN (09:45)
[2017-06-12] MEDS ORDERED: POTASSIUM PHOSPHATE MONOBASIC 500 MG TAB PO PRN (09:45)
[2017-06-12] MEDS ORDERED: MAGNESIUM OXIDE 400 MG TAB PO PRN (09:45)
[2017-06-12] MEDS ORDERED: POTASSIUM CHLOR 20 MEQ PREMIX 100 ML IV PRN ×2 (09:45)
[2017-06-12] MEDS ORDERED: POTASSIUM CHLORIDE 25 MEQ EFFERVESCENT TAB PO PRN (09:45)
[2017-06-12] MEDS ORDERED: MAGNESIUM SULFATE INJ 2 GM in SODIUM CHLORIDE 0.9% INJ 96 ML IV PRN (09:45)
--- NOTE | 2017-06-12 09:45 | MH ---
cc: Jozef Gilliland MD DATE OF ADMISSION: 06/11/2017 CHIEF COMPLAINT: Shortness of breath. HISTORY OF PRESENT ILLNESS: Madan Guerra is a 57-year-old male, recently discharged a week ago from [facility] for respiratory failure. He was discharged after being treated for fluid overload, CHF, and severe hyperglycemia. He presented to my office for followup. He was taking the medication as I ordered, he reports. He was in with his polymer specialist. Presented to [place] emergency room this time with dyspnea on exertion and increased edema. He was found to have acute coronary syndrome. Patient was given DuoNebs and Lasix. He was found to be in AFib with RVR. He was refusing BiPAP, as is typical for him. I was thus called for admission and we started nitroglycerin ointment. Patient is agitated and wanting to go home. States no one is doing anything to help him. States he is just here for the swelling in his legs. Appears to be much weaker than usual. He is sitting up, speaking in 2-3 word sentences. Patient was seen with nursing staff. PAST MEDICAL HISTORY: 1. Sleep apnea. 2. Hypercarbia. 3. COPD. 4. CHF. 5. Tobacco abuse. SURGICAL HISTORY: 1. Cardiac catheterization. 2. Back cyst removal. SOCIAL HISTORY: One pack per day smoker. No current alcoholism or current substance use. He quit using cannabis this past year. ALLERGIES: NO KNOWN DRUG ALLERGIES. HOME MEDICATIONS: 1. Omeprazole. 2. O2. 3. Lyrica 50 mg daily. 4. Tramadol p.r.n. 5. Spironolactone. 6. Ventolin. 7. Dulcolax. 8. Senna-S. 9. Lantus. 10. Advair 250. 11. Aspirin 81. 12. Hydralazine. 13. Imdur. 14. DuoNeb. 15. Bupropion. REVIEW OF SYSTEMS: Increased weakness and shortness of breath. Increased edema in the legs. Negative 14-point review of systems otherwise. LABORATORY STUDIES: WBC 6.2, hemoglobin 9.9, platelets are 241. Sodium 129, creatinine is 1.12, potassium 5.2, glucose 361. Troponin 0.11, now 0.06. BNP 181. IMAGING: Chest x-ray shows minimal basilar atelectasis. VITALS: Temp 98.2, pulse 102, respirations are 22, blood pressure is 108/59, O2 is 93 on high-flow nasal cannula. PHYSICAL EXAMINATION: GENERAL: Ill-appearing. He is short of breath, sitting up, leaning forward, speaks in 2-3 word sentences. He is very agitated. HEENT: Oropharynx is clear. Carotids are clear. No JVD, although difficult to discern due to the habitus of his neck. No lymphadenopathy. Scalp is normocephalic, atraumatic. CHEST: Distant breath sounds and bilateral rales and rhonchi to the apices. CARDIOVASCULAR: Irregularly irregular and tachycardic. ABDOMEN: Obese, distended. Slightly tender in all quadrants. Normoactive bowel sounds. No organomegaly. EXTREMITIES: 3+ edema to the patellas bilaterally. Chronic stasis changes and erythema to the legs and tenderness in his legs over the erythematous, cellulitic areas. NEUROLOGIC: A and O x 3. Cranial nerves are intact. Strength is 3/5 in all extremities. Sensation is intact bilaterally. PSYCHIATRIC: He is agitated. Mood congruent. He is directable. ASSESSMENT: 1. Non-STEMI. 2. Atrial fibrillation with RVR. 3. CHF. 4. Cor pulmonale. 5. Fluid overload. 6. Cellulitis of the legs. 7. Hyperkalemia. 8. Hyponatremia. 9. Severe hyperglycemia. 10. Smoker. 11. Recent cellulitis of the abdomen and legs at [facility] and discharged last week. PLAN: 1. Cardizem drip. 2. Lovenox 120 mg subcutaneously b.i.d. 3. Lasix 40 IV b.i.d. 4. Haldol p.r.n. 5. Solu-Medrol 80 mg IV q.6 hours. 6. Nitroglycerin 2% ointment. 7. Protonix IV for GI prophylaxis. 8. DVT prophylaxis, on Lovenox b.i.d. 9. Telemetry. 10. Physical therapy. 11. Admit to ICU. 12. Consult pulmonary. 13. Consult to live games dealer. 14. Inpatient admission to the ICU for myocardial infarction, atrial fibrillation with RVR, CHF exacerbation, COPD exacerbation, and correction of numerous electrolyte abnormalities. Patient would at home from respiratory failure without admission. Expect 3 days inpatient stay; however, patient is threatening to sign out AMA right now and I think that I have talked him into staying for now. We will have to continue to discuss compliance with his medications and smoking and insulin usage as an outpatient. Discussed with him discharging him from my practice; however, will continue to try to help him. MD LEATHA Reyes/TI , 09:01 AM , 09:42 AM
[2017-06-12] MEDS: ENOXAPARIN SODIUM 120 MG/0.8 ML SYRINGE SQ SCH ×2 (10:10→20:55)
--- NOTE | 2017-06-12 10:32 | PD.CONS ---
[facility] Service Critical Care Medicine Consult Requested By Dr. Gilliland Reason for Consult Acute hypoxemic respiratory failure Primary Care Physician Jozef Gilliland MD History of Present Illness This is a 57-year-old male. Date of admission 06/11/2017. Date of consultation 06/12/2017. Past medical history includes seizure disorder, THC use , coronary artery disease 30% LAD 2015 heart catheterization, hypertension, dyslipidemia, oxygen dependent COPD, 2 L nasal cannula, peripheral neuropathy, gastroesophageal reflux disease and uncontrolled diabetes mellitus. According to records, patient was hospitalized at [facility] and was discharged within the past week. He states he has been compliant with his medications. Noted does have history of medical noncompliance. He presented to [facility] initially with chief complaint of "my legs are swollen". He is noted to have an elevated troponin of 0.11 and was admitted under Dr. Gilliland. Patient received albuterol/Ultram aerosols and furosemide 1. Patient placed on high flow nasal cannula. He patient refused CPAP due to claustrophobia. ABG revealed CO2 retention Chest x-ray revealed hyperinflated lungs. Troponin was 0.11. EKG is currently pending. Troponin downtrending to current the 0.06. Was placed on Nitropaste 2 inches every 6 hours and enoxaparin 120 mg twice daily. Change Room Attendant been counseled as well. Denies chest pain, shortness of breath, abdominal pain. Main complaint is painful swelling in his legs. He states he occasionally smokes THC for pain management as tramadol does not provide adequate pain relief at home Review of Systems Constitutional: COMPLAINS OF: Fatigue, Weight gain, DENIES: Fever, Weight loss , Chills, Dizziness Endocrine: DENIES: Polydipsia, Polyuria Eyes: DENIES: Blurred vision Ears, nose, mouth, throat: DENIES: Tinnitus Respiratory: COMPLAINS OF: Sputum production, DENIES: Apneas, Hemoptysis, Shortness of breath Cardiovascular: DENIES: Chest pain, Palpitations, Dyspnea on Exertion Gastrointestinal: DENIES: Abdominal pain Genitourinary: DENIES: Urgency Musculoskeletal: COMPLAINS OF: Muscle aches, Back pain, DENIES: Joint Swelling Integumentary: COMPLAINS OF: Abnormal pigmentation, DENIES: Rash Hematologic/lymphatic: DENIES: Bruising Immunologic/allergic: DENIES: Eczema, Urticaria Neurologic: DENIES: Headache, Paresthesias, Tremor Psychiatric: DENIES: Anxiety, Confusion, Depression Past Family Social History Allergies: Coded Allergies: No Known Allergies (Verified Allergy, Unknown, 06/11/17) Past Medical History Depression Seizure disorder Nonobstructive coronary artery disease Essential hypertension Dyslipidemia COPD 2 L oxygen dependent Obstructive sleep apnea does not use CPAP secondary to claustrophobia Chronic hyponatremia Elevated BMI Gastroesophageal reflux disease Constipation Diabetes mellitus type 1 Ongoing tobaccoism Past Surgical History Pilonidal cyst removal Cardiac catheterization 2014 30% LAD otherwise unremarkable Reported Medications Albuterol aerosols 18 g every 4 hours as needed Isosorbide mononitrate 30 mg daily Spironolactone 100 mg p.o. twice daily Aspirin 81 mg p.o. daily Albuterol/ipratropium aerosols every 4 hours as needed dyspnea Insulin glargine 80 units twice daily Bupropion 100 mg p.o. daily Pregabalin 50 mg p.o. twice daily Advair 250/50 1 inhalation twice daily Tramadol 50 mg p.o. every 4 hours as needed pain Active Ordered Medications Reviewed in EMR Family History Father from cirrhosis/EtOH abuse at age 27 Mother of old age. Had breast cancer Social History 1 pack per day tobacco 45 years. He states he quit alcohol 2016.. States occasional THC use Physical Exam Vital Signs Vital Signs Date Time Temp Pulse Resp B/P (MAP) Pulse Ox O2 Delivery O2 Flow Rate FiO2 06/12/17 08:50 91 High Flow Nasal Cannula 30.00 50 06/12/17 08:00 98.2 102 22 108/59 (75) 88 06/12/17 07:49 93 High Flow Nasal Cannula 30.00 55 06/12/17 07:30 94 High Flow Nasal Cannula 30.00 60 06/12/17 07:00 82 06/12/17 06:19 106 06/12/17 05:07 86 06/12/17 04:59 75 06/12/17 04:07 100 108/59 06/12/17 03:00 98.2 102 22 108/59 (75) 88 06/12/17 03:00 102 06/12/17 02:51 106 06/12/17 01:30 95 06/12/17 01:15 92 4.00 06/12/17 00:43 113 20 113/55 (74) 93 BiPAP 06/12/17 00:06 94 35 06/11/17 23:01 79 18 110/69 (83) 92 BiPAP 06/11/17 22:10 95 35 06/11/17 21:25 93 Nasal Cannula 2.00 06/11/17 20:43 97 18 106/67 (80) 93 Nasal Cannula 2.00 06/11/17 20:34 97 18 106/72 (83) 93 06/11/17 20:34 107 20 93 Nasal Cannula 3.00 06/11/17 20:08 110 137/67 06/11/17 19:18 91 Nasal Cannula 06/11/17 19:18 98.5 135 20 121/79 (93) 93 Nasal Cannula 06/11/17 18:56 98.3 136 28 117/72 (87) 81 Physical Exam GENERAL: 57-year-old male currently resting in chair in no acute distress SKIN: Warm and dry. Chronic venous stasis bilateral lower extremities HEAD: Atraumatic. Normocephalic. EYES: Pupils equal and round around 3 mm bilaterally and reactive. No scleral icterus. No injection or drainage. ENT: No nasal bleeding or discharge. Mucous membranes pink and moist. NECK: Trachea midline. No JVD. CARDIOVASCULAR: Tachycardic, IR. S1, S2 no strip without murmurs, clicks, gallops or rubs RESPIRATORY: Diminished breath sounds throughout. No wheezing is appreciated. I do not appreciate any rales on my examination GASTROINTESTINAL: Abdomen soft, non-tender, protuberant. Hypoactive bowel sounds appreciated MUSCULOSKELETAL: Extremities with 2+ bilateral lower extremity edema. No obvious deformities. NEUROLOGICAL: Awake and alert. No obvious cranial nerve deficits. Motor grossly within normal limits. Five out of 5 muscle strength in the arms and legs. Normal speech. Laboratory Laboratory Tests Test 06/11/17 19:24 06/11/17 19:30 06/11/17 20:30 06/11/17 21:45 White Blood Count 8.6 Red Blood Count 5.04 Hemoglobin 9.8 9.4 Hematocrit 34.9 Mean Corpuscular Volume 69.3 Mean Corpuscular Hemoglobin 19.4 Mean Corpuscular Hemoglobin Concent 28.0 Red Cell Distribution Width 26.8 Platelet Count 247 Mean Platelet Volume 8.3 Neutrophils (%) (Auto) 70.1 Lymphocytes (%) (Auto) 16.7 Monocytes (%) (Auto) 10.6 Eosinophils (%) (Auto) 1.7 Basophils (%) (Auto) 0.9 Neutrophils # (Auto) 6.0 Lymphocytes # (Auto) 1.4 Monocytes # (Auto) 0.9 Eosinophils # (Auto) 0.1 Basophils # (Auto) 0.1 CBC Comment AUTO DIFF Differential Comment AUTO DIFF CONFIRMED Platelet Estimate NORMAL Platelet Morphology Comment NORMAL Tear Drop Cells 1+ Ovalocytes 1+ Stomatocytes 1+ Prothrombin Time 10.6 Prothromb Time International Ratio 1.0 Activated Partial Thromboplast Time 27.0 Blood Urea Nitrogen 17 Creatinine 0.86 Random Glucose 102 Calcium Level 9.0 Magnesium Level 2.1 Sodium Level 135 Potassium Level 4.1 Chloride Level 96 Carbon Dioxide Level 37.2 Anion Gap 2 Estimat Glomerular Filtration Rate 92 Total Creatine Kinase 13 Troponin I 0.11 B-Type Natriuretic Peptide 181 Lipase 83 Lactic Acid Level 0.9 Blood Gas Puncture Site RT RADIAL Blood Gas Patient Temperature 98.6 Blood Gas HCO3 33 Blood Gas Base Excess 7.9 Blood Gas Oxygen Saturation 85 Arterial Blood pH 7.37 Arterial Blood Partial Pressure CO2 58 Arterial Blood Partial Pressure O2 59 Arterial Blood Oxygen Content 11.1 Arterial Blood Carboxyhemoglobin 5.5 Arterial Blood Methemoglobin 0.6 Blood Gas Hemoglobin 9.3 Oxygen Delivery Device NASAL CANNULA Blood Gas Liter Flow 3 Test 06/12/17 02:55 06/12/17 06:29 Blood Gas Puncture Site LT RADIAL Blood Gas Patient Temperature 98.6 Blood Gas HCO3 31 Blood Gas Base Excess 5.4 Blood Gas Oxygen Saturation 75 Arterial Blood pH 7.34 Arterial Blood Partial Pressure CO2 60 Arterial Blood Partial Pressure O2 46 Arterial Blood Oxygen Content 10.1 Arterial Blood Carboxyhemoglobin 4.1 Arterial Blood Methemoglobin 1.3 Blood Gas Hemoglobin 9.6 Oxygen Delivery Device NASAL CANNULA Blood Gas Liter Flow 3 White Blood Count 6.2 Red Blood Count 4.97 Hemoglobin 9.9 Hematocrit 34.8 Mean Corpuscular Volume 70.0 Mean Corpuscular Hemoglobin 19.8 Mean Corpuscular Hemoglobin Concent 28.3 Red Cell Distribution Width 27.0 Platelet Count 241 Mean Platelet Volume 8.2 Neutrophils (%) (Auto) 92.5 Lymphocytes (%) (Auto) 6.6 Monocytes (%) (Auto) 0.7 Eosinophils (%) (Auto) 0.1 Basophils (%) (Auto) 0.1 Neutrophils # (Auto) 5.7 Lymphocytes # (Auto) 0.4 Monocytes # (Auto) 0.0 Eosinophils # (Auto) 0.0 Basophils # (Auto) 0.0 CBC Comment AUTO DIFF Differential Comment AUTO DIFF CONFIRMED Blood Urea Nitrogen 24 Creatinine 1.12 Random Glucose 361 Calcium Level 8.9 Sodium Level 129 Potassium Level 5.2 Chloride Level 93 Carbon Dioxide Level 32.6 Anion Gap 3 Estimat Glomerular Filtration Rate 68 Troponin I 0.06 Date/Time Source Procedure Growth Status 06/11/17 19:30 Blood Peripheral Aerobic Blood Culture Pending Received 06/11/17 19:30 Blood Peripheral Anaerobic Blood Culture Pending Received Result Diagram: 06/12/17 0629 06/12/17 0629 Imaging Last Impressions Chest X-Ray 06/11/17 0000 Signed Impressions: Service Date/Time: Sunday, June 11, 2017 19:33 - CONCLUSION: 1. Minimal basilar atelectasis. Jaime Amaya MD Septic Shock Reassessment Septic shock perfusion: reassessment completed Assessment and Plan Assessment and Plan Neuro/Psych: Seizure disorder NOS Chronic pain syndrome History of THC use Depression Acetaminophen 650 mg p.o. every 6 hours as needed fever Hydrocodone/acetaminophen 5/325 1 tablet every 4 hours as needed pain 1-5 Morphine sulfate 2 mg IV every 2 hours as needed pain 6-10 Continue pregabalin 50 mg once a daily and bupropion 100 mg once a daily/home medications for depression Patient is on tramadol 50 mg every 4 hours as needed pain at home CV: Elevated troponin Nonobstructive coronary disease History of hypertension Dyslipidemia Atrial fibrillation with rapid ventricular response Currently on enoxaparin 120 mg subcu twice daily Diltiazem drip at 15 mg an hour for rate control Troponin 0.11 decrease to 0.06. EKG is pending Cardiology/Dr. Chaney has seen and evaluated the patient 2D echocardiogram august 2016 revealed EF 55-60%. No regional wall motion abnormality. On furosemide 40 iv twice daily Patient is on hydralazine 20 mg 3 times daily and isosorbide mononitrate 30 mg daily at home. Resume Patient is on spironolactone 100 mg twice daily home. This is been held Patient has an aspirin 81 mg daily. This has been resumed Resp: Acute hypoxemic respiratory failure Chronic respiratory insufficiency/COPD 2 L oxygen dependent Ongoing tobacco abuse HFNC 50% FiO2 30 L titrated to maintain saturations greater than or equal to 90 percent Incentive spirometry while awake Albuterol/ipratropium aerosols every 4 hours with albuterol aerosols every 2 hours. Dyspnea Resumed fluticasone/salmeterol 250/50 1 inhalation twice daily l. Resume Methylprednisolone succinate 60 mg IV every 6 hours Patient is on albuterol susceptibly aerosols every 4 hours as needed home along with albuterol aerosols every 4 hours as needed dyspnea Check CT pulmonary angiogram Tobacco cessation self-education booklet will be provided GI: Gastroesophageal reflux disease Chronic constipation Patient is currently n.p.o.. Advance diet when stabilized Pantoprazole 40 mg daily for GI prophylaxis. Patient is on omeprazole 40 mg daily at home Docusate sodium/senna 1 tablet twice daily for bowel regimen Patient is on senna as an outpatient : Mcclendon catheter if indicated for accurate I's and O's in a critically ill patient Endo: Diabetes mellitus Sliding scale insulin with Novulog with Accu-Cheks to maintain euglycemia/high regimen Holding insulin glargine 80 units subcu twice daily Renal: Creatinine currently 1.2. Monitor urine output Accurate I's and O's Recheck BMP in a.m. Heme: Microcytic hypochromic anemia Patient has not had an EGD or colonoscopy done Does not meet transfusion threshold at the time We will check Hemoccult stool and iron studies 1 while on enoxaparin ID: Currently levofloxacin and 1 dose vancomycin for possible community acquired pneumonia/sepsis Blood cultures 2, sputum and influenza all ordered MSK: Elevated BMI Weight loss encouraged PT evaluate and treat FEN: Hyponatremia Replace electrolytes as clinically indicated Access -Utilize peripheral IV. Central and if indicated Prophylaxis -GI -pantoprazole -DVT -SCD/enoxaparen Level 3 consult Code Status Full code Discussed Condition With Patient. Dr. Chaney. Care plan discussed and all questions answered. Emiliano Portillo MD Jun 12, 2017 10:32
[2017-06-12] MEDS: ACETYLCYSTEINE 20% 6,000 MG/30 ML ORAL SOLN VIAL PO SCH (11:00)
--- NOTE | 2017-06-12 11:44 | MB ---
cc: Victoriano Chaney MD DATE OF CONSULT: 06/12/2017 REASON FOR CONSULTATION: Evaluation of atrial flutter. HISTORY OF PRESENT ILLNESS: Madan Guerra is a 57-year-old man who has been in and out of the hospital multiple times for respiratory insufficiency. He has Pickwickian syndrome and continues smoke, has been as much as 3 packs per day, currently down to 1 pack per day. He just apparently has had multiple admissions at [facility] including an admission where he was intubated and was just discharged 10 days ago. He does not read or write well and so does not know his medications at all, so when he came to the ER did not have any idea what medicines he was on. He chose this ER just because he has been in and out of [facility] too much, according to him. His primary care doctor is Dr. Gilliland. Since discharge, he has had progressive swelling of his lower extremities, he is continuing to smoke, not aware of his heart rate, When he came in, he was in 2:1 flutter and now on 15 mg of Cardizem IV an hour, which has brought his rate down to normal. There is no history of having this arrhythmia at [place]. I will have to go, when I get to the office, look at his [place] records to see if he had arrhythmia up there. He was profoundly short of breath and having a lot of edema when he came here. It is starting to improve, but he is still short of breath and wearing oxygen. PAST MEDICAL HISTORY: Includes sleep apnea, Pickwickian syndrome, COPD, CHF, tobacco abuse. PAST SURGICAL HISTORY: Includes a cardiac cath done just a couple year ago by Dr. Stevens showing nonobstructive disease. He has had back cysts removed and a previous infected area removed from his thigh. SOCIAL HISTORY: Notable for ongoing smoking. ALLERGIES: NONE KNOWN. MEDICATION LIST: Charted. PHYSICAL EXAMINATION: GENERAL: Shows a morbidly obese white male. He is alert and able to talk. He is mildly tachypneic, does not appear to be in acute distress. HEENT: Unremarkable. NECK: Obese, difficult to assess neck veins. CHEST: Shows severely diminished breath sound throughout. CARDIAC: S1 and S2, irregularly irregular with atrial flutter showing on the monitor. ABDOMEN: Soft. EXTREMITIES: Show 3+ edema with venous insufficiency changes. DIAGNOSTIC STUDIES: His EKG shows atrial flutter with 2:1 conduction, which is new from his old EKG here. His chest x-ray report is minimal basilar atelectasis. His blood gas showed a pH of 7.34, a pCO2 of 60 and a pO2 of 46. This was on 3 liters nasal cannula. Hematocrit is 34.8. He has got a known iron deficiency. Creatinine is 1.12. IMPRESSION: Atrial flutter, duration unclear. It is new at [place]. We will look at his [place] records to see if this is new or not. Rate is currently controlled with 5 doses of IV Cardizem. There is an iron deficiency anemia going on, making anticoagulation more complicated. RECOMMENDATIONS: The patient is currently anticoagulated with Lovenox. He is on aspirin too, so I am going to hold that to reduce risk of bleeding. he is on IV Cardizem. I will start p.o. Cardizem to try to help bring his rate down. he needs to be diuresed and he is on 40 IV Lasix b.i.d. We will keep an eye on his potassium and magnesium and further therapy to be determined. MD PAULIE Hartman/JUANA , 10:12 AM , 11:42 AM
[2017-06-12] MEDS ORDERED: IOHEXOL 350 MG/ML 10 ML VIAL (for RAD DIAG) IVCONTRAST ONE (11:50)
--- NOTE | 2017-06-12 12:04 | RADRPT ---
EXAM DATE/TIME: 06/12/2017 11:42 [facility] COMPARISON: CT PULMONARY ANGIOGRAM, August 19, 2016, 17:35. INDICATIONS : Short of breath. IV CONTRAST: 85 cc Omnipaque 350 (iohexol) IV RADIATION DOSE: 23.04 CTDIvol (mGy) MEDICAL HISTORY : Seizures. Cardiovascular disease Chronic obstructive pulmonary disease.Diabetes. Hypertension. Asth ma. SURGICAL HISTORY : None. ENCOUNTER: Initial ACUITY: 1 day PAIN SCALE: 0/10 LOCATION: chest TECHNIQUE: Volumetric scanning of the chest was performed using a pulmonary embolism protocol MIP images were re constructed. Using automated exposure control and adjustment of the mA and/or kV according to patien t size, radiation dose was kept as low as reasonably achievable to obtain optimal diagnostic quality images. DICOM format image data is available electronically for review and comparison. Follow-up recommendations for detected pulmonary nodules are based at a minimum on nodule size and pa tient risk factors according to Fleischner Society Guidelines. FINDINGS: PULMONARY ARTERIES: No filling defects are seen in the pulmonary arteries through the segmental level. LUNGS: Significant airway disease is identified in both lung bases. There is bronchial wall thickening with peribronchial opacity and subsegmental air space disease. Chronic lung changes are seen with scattered emphysematous disease. PLEURAE: There is no pleural thickening or pleural effusion. MEDIASTINUM: The heart is mildly to moderately enlarged. Mild/moderate coronary artery calcification is noted. The re are no mediastinal masses or evidence of lymphadenopathy. MUSCULOSKELETAL: Within normal limits for patient age. MISCELLANEOUS: Free fluid consistent with ascites is identified surrounding the liver. CONCLUSION: 1. No evidence of acute pulmonary embolism. 2. Bibasilar airway disease with bilateral subsegmental air space disease. 3. Emphysematous chronic obstructive pulmonary disease. 4. Cardiomegaly. 5. Ascites identified in the abdomen. Franklin Ibanez MD on June 12, 2017 at 11:57 Board Certified Radiologist. This report was verified electronically.
[2017-06-12] MEDS: ARTIFICIAL TEARS OPTH SOLN 15 ML BTL EACH EYE SCH ×2 (13:00→17:23)
[2017-06-12] MEDS ORDERED: ACETAMINOPHEN 325 MG TAB PO PRN (13:00)
[2017-06-12] MEDS ORDERED: SODIUM CHLORIDE 0.9% FLUSH 10 ML FLUSH IV FLUSH PRN (13:00)
[2017-06-12] MEDS ORDERED: MORPHINE SULFATE 2 MG/ML INJ IV PUSH PRN (13:00)
[2017-06-12] MEDS ORDERED: MAGNESIUM HYDROXIDE SUSP 30 ML CUP PO PRN (13:00)
[2017-06-12] MEDS ORDERED: ONDANSETRON HCL 4 MG/2 ML VIAL IV PUSH PRN (13:00)
[2017-06-12] MEDS: INSULIN ASPART SUPPLEMENTAL SCALE SQ SCH ×3 (13:13→23:05)
[2017-06-12] MEDS ORDERED: VANCOMYCIN INJ 1,250 MG in SODIUM CHLOR 0.9% 250 ML INJ 250 ML IV ONE (13:15)
[2017-06-12] MEDS ORDERED: SENNOSIDES 8.6 MG TAB PO PRN (13:15)
[2017-06-12] MEDS: hydrALAZINE HCL 25 MG TAB PO SCH ×2 (13:46→17:17)
[2017-06-12] MEDS: LEVOFLOXACIN 750 MG PREMIX INJ 150 ML IV SCH (13:46)
[2017-06-12] MEDS: ACETAMINOPHEN/HYDROcodone 325 MG/5 MG TAB PO PRN ×3 (13:46→23:04)
[2017-06-12] MEDS: RESP: ALBUTEROL 2.5 MG/IPRATROPIUM 0.5 MG NEB (SCH) NEB ×4 (13:50→23:42)
--- NOTE | 2017-06-12 15:16 | RADRPT ---
EXAM DATE/TIME: 06/12/2017 14:23 [facility] COMPARISON: No previous studies available for comparison. INDICATIONS : Edema bilateral legs. MEDICAL HISTORY : Hypercholesterolemia. Seizure. Head trama. Syncope. MT. CHF. COPD. Emphysema. Asthma. GERD. Diabete s. Osteoporosis. SURGICAL HISTORY : Cardiac cath. ENCOUNTER: Initial ACUITY: 1 day PAIN SCORE: 0/10 LOCATION: Bilateral legs TECHNIQUE: Venous ultrasound of the left and right leg was performed from the inguinal ligament to the proximal calf. Real-time, color Doppler and spectral tracing, compression and augmentation techniques were us ed. FINDINGS: RIGHT LEG: There is normal compressibility of the deep venous system from the inguinal region to the proximal ca lf. No echogenic clot is seen in the lumen of the common femoral, femoral, popliteal, and posterior tibial veins. There is a normal response of the venous system to proximal and distal augmentation an d respiration. LEFT LEG: There is normal compressibility of the deep venous system from the inguinal region to the proximal ca lf. No echogenic clot is seen in the lumen of the common femoral, femoral, popliteal, and posterior tibial veins. There is a normal response of the venous system to proximal and distal augmentation an d respiration. CONCLUSION: No DVT in either lower extremity. Jose L Rodríguez MD on June 12, 2017 at 15:15 Board Certified Radiologist. This report was verified electronically.
[2017-06-12] MEDS: BUDESONIDE-FORMOTEROL 160/4.5 MCG INHALER INH SCH (20:55)
[2017-06-12] MEDS: DOCUSATE SODIUM 50 MG/SENNA 8.6 MG TAB PO SCH (20:56)
[2017-06-12] MEDS: PANTOPRAZOLE SODIUM 40 MG VIAL IV PUSH SCH (20:56)
[2017-06-12] MEDS: POTASSIUM CHLORIDE 20 MEQ CONTROLLED RELEASE TAB PO SCH (20:56)
--- NOTE | 2017-06-12 22:36 | EKG ---
Date Performed: 06/11/2017 Time Performed: 19:10:57 PTAGE: 57 years EKG: ATRIAL FLUTTER/TACHYCARDIA WITH RAPID VENTRICULAR RESPONSE BORDERLINE RIGHT AXIS DEVIATION INCOMPLETE RIGHT BUNDLE BRANCH BLOCK JUNCTIONAL ST DEPRESSION, CONSIDER NORMAL VARIANT ABNORMAL RHYTH M ECG PREVIOUS TRACING : 03/12/2017 14.54 Compared to prior tracing, SR no longer present DOCTOR: Nava Felton Interpretating Date/Time 06/12/2017 22:34:52
[2017-06-13] VITALS (9 sets, daily range): BP systolic 123–131; BP diastolic 63–88; PULSE 81–110; RESP 20–22; TEMP 97.9–98.9; O2SAT 90–97
[2017-06-13] MEDS: RESP: ALBUTEROL 2.5 MG/IPRATROPIUM 0.5 MG NEB (SCH) NEB ×5 (03:51→20:42)
[2017-06-13] MEDS: CHLORHEXIDINE GLUCONATE 2 % 1 PACK (2 CLOTHS) TOP SCH (04:00)
[2017-06-13] MEDS: NITROGLYCERIN 2% OINT 1 GM PACKET TOPICAL SCH ×3 (04:52→17:26)
[2017-06-13] MEDS: ACETAMINOPHEN/HYDROcodone 325 MG/5 MG TAB PO PRN ×2 (04:52→08:49)
[2017-06-13] MEDS: methylPREDNISolone SOD SUCC 125 MG/2 ML VIAL IV PUSH SCH ×3 (04:52→17:26)
[2017-06-13] MEDS: INSULIN ASPART SUPPLEMENTAL SCALE SQ SCH ×4 (04:53→22:02)
[2017-06-13] MEDS: ACETYLCYSTEINE 20% 6,000 MG/30 ML ORAL SOLN VIAL PO SCH ×3 (04:54→22:02)
[2017-06-13] MEDS: DILTIAZEM INJ 125 MG in SODIUM CHLORIDE 0.9% INJ 100 ML IV PRN (05:41)
[2017-06-13 05:45] LABS: INTERNATIONAL NORMALIZED RATIO 1.1 RATIO; PROTHROMBIN TIME - PATIENT 10.8 SEC (9.8-11.6)
--- NOTE | 2017-06-13 05:46 | RADRPT ---
EXAM DATE/TIME: 06/13/2017 04:39 [facility] COMPARISON: CHEST SINGLE AP, June 11, 2017, 19:33. INDICATIONS : Short of breath. MEDICAL HISTORY : Chronic obstructive pulmonary disease. Congestive heart failure. Hypertension. Diabetes. SURGICAL HISTORY : None. ENCOUNTER: Subsequent ACUITY: 3 days PAIN SCORE: 0/10 LOCATION: Bilateral chest FINDINGS: Worsening mild bilateral airspace disease and probable trace pleural effusions. Cardiac silhouette is enlarged. Remainder of the exam is unchanged. CONCLUSION: 1. Worsening bilateral lower lung zone airspace disease and probable trace pleural effusions. 2. Cardiomegaly. Alexei Medina MD on June 13, 2017 at 5:43 Board Certified Radiologist. This report was verified electronically.
[2017-06-13 06:07] LABS: ALBUMIN 3.2 GM/DL (3.4-5.0); ALKALINE PHOSPHATASE 191 U/L (45-117); ALT (GPT) 21 U/L (12-78); AST (GOT) 8 U/L (15-37); BICARBONATE 31.1 MEQ/L (21.0-32.0); BLOOD UREA NITROGEN 26 MG/DL (7-18); CALCIUM 9.1 MG/DL (8.5-10.1); CHLORIDE 93 MEQ/L (98-107); CREATININE 0.88 MG/DL (0.60-1.30); GLOMERULAR FILTRATION RATE 90 ML/MIN (>89); GLUCOSE,RANDOM 326 MG/DL (74-106); MAGNESIUM 2.4 MG/DL (1.5-2.5); PHOSPHORUS 2.8 MG/DL (2.5-4.9); SODIUM (NA) 132 MEQ/L (136-145); TOTAL BILIRUBIN ADULT 0.5 MG/DL (0.2-1.0); TOTAL PROTEIN 6.3 GM/DL (6.4-8.2)
[2017-06-13 06:22] LABS: AUTOMATED NEUTROPHIL # 6.5 TH/MM3 (1.8-7.7); HEMATOCRIT 33.4 % (39.0-51.0); HEMOGLOBIN 9.4 GM/DL (13.0-17.0); LYMPH % 4.7 % (9.0-44.0); LYMPHOCYTE # 0.3 TH/MM3 (1.0-4.8); MEAN CELL VOLUME 70.7 FL (80.0-100.0); MEAN CORPUSCULAR HEMOGLOBIN 19.8 PG (27.0-34.0); MEAN PLATELET VOLUME 8.2 FL (7.0-11.0); MONO % 2.4 % (0.0-8.0); MONOCYTE # 0.2 TH/MM3 (0-0.9); NEUT % 92.9 % (16.0-70.0); PLATELET COUNT 230 TH/MM3 (150-450); RED BLOOD COUNT 4.72 MIL/MM3 (4.50-5.90); RED CELL DISTRIBUTION WIDTH 26.9 % (11.6-17.2)
[2017-06-13 06:28] LABS: MEAN CORPUSCULAR HGB CONC 28.1 % (32.0-36.0)
--- NOTE | 2017-06-13 08:10 | MB ---
cc: Ankit Morel MD DATE OF CONSULT: 06/12/2017 REFERRING PHYSICIAN: Dr. Jozef Gilliland REASON FOR CONSULTATION: Respiratory failure. HISTORY OF PRESENT ILLNESS: Mr. Guerra is a 57-year-old male with history of COPD, morbid obesity, obstructive sleep apnea, nicotine use, continues to smoke. He has multiple admissions at [facility]. Patient states that he came to the hospital with swelling in his legs, which has been going on for many months. He denied any chest pain. Denied any palpitations. Patient was found to be in atrial flutter and he also has respiratory acidosis. He had a workup done. His blood gas shows a pH of 7.34, pCO2 of 60, pO2 of 46, bicarb 31, saturation 85%. Currently he is on high-flow oxygen. His CBC showed WBC of 6.2, hemoglobin 9.9, hematocrit 34.8, MCV 70, platelet count 241. Sodium 129, potassium 5.2, chloride 93, CO2 of 32, BUN of 24, creatinine 1.12. CT of the chest shows no pulmonary embolism, mild subsegmental air space disease, emphysematous changes in the lungs. Patient briefly used CPAP, now he is on high-flow oxygen. PAST MEDICAL HISTORY: Significant for history of a history of COPD, obstructive sleep apnea, morbid obesity, nicotine use, history of cardiac cath in the past. MEDICATIONS: He is currently taking Wellbutrin 100 mg a day, Imdur 30 mg a day, Lyrica 50 mg a day, Protonix 40 mg a day, Diltiazem 240 mg a day, Symbicort 160/4.5 two puffs twice a day, Levaquin 750 mg that is ordered at 60 mg every 6 hours, Mucomyst twice a day. ALLERGIES: NO KNOWN DRUG ALLERGIES. SOCIAL HISTORY: He has a long history of smoking, continues to smoke. FAMILY HISTORY: Noncontributory. REVIEW OF SYSTEMS: He barely walks. Does not use CPAP. He uses oxygen 2 L nasal cannula. PHYSICAL EXAMINATION: GENERAL: He is an obese male , not in any acute distress. VITAL SIGNS: Blood pressure 129/90, heart rate 91, respirations 22, temperature 98.4. HEENT: Unremarkable. NECK: No JVD noted. CHEST: Lungs clear bilaterally. No rhonchi. CARDIOVASCULAR: S1, S2 normal. ABDOMEN: Obese, nontender. Bowel sounds are present. EXTREMITIES: Pedal edema 1+. IMPRESSION: 1. Hypercapnic and hypoxic respiratory failure. 2. Chronic obstructive pulmonary disease exacerbation. 3. Atrial flutter. 4. Obesity. 5. Obstructive sleep apnea. PLAN: I discussed with patient. He says he may use BIPAP if needed. He does not want to use it at this time, but he agrees if needed, he will go for intubation. Will continue the aerosol treatment high-flow oxygen. Continue his antibiotic. He is on Cardizem drip for rate control. Cardiology workup is underway. Futher treatment will depend on his course in the hospital. Thank you, Dr. Jozef Gilliland, for this consult. MD MARTY Tucker/YVETTE/isabella , 07:22 PM , 08:27 PM LILIAN
[2017-06-13 08:19] LABS: CORRECTED NUCLEATED RBC 1 /100 WBC (0-0); LYMPHOCYTES 1 % (9-44); MONOCYTES 1 % (0-8); NEUTROPHIL # MANUAL DIFF 6.9 TH/MM3 (1.8-7.7); NUCLEATED RED BLOOD CELL 1 (0-0); POLYS (SEG NEUTROPHILS) 98 % (16-70)
[2017-06-13 08:20] LABS: OVALOCYTES 1+ (NORMAL); POLYCHROMASIA 2.8 % (0.0-1.9)
[2017-06-13] MEDS: DOCUSATE SODIUM 50 MG/SENNA 8.6 MG TAB PO SCH ×2 (08:49→22:01)
[2017-06-13] MEDS: ENOXAPARIN SODIUM 120 MG/0.8 ML SYRINGE SQ SCH ×2 (08:49→22:01)
[2017-06-13] MEDS: hydrALAZINE HCL 25 MG TAB PO SCH ×3 (08:49→17:26)
[2017-06-13] MEDS: PANTOPRAZOLE SOD 40 MG DELAYED RELEASE TAB PO SCH (08:50)
[2017-06-13] MEDS: PREGABALIN 25 MG CAP PO SCH (08:50)
[2017-06-13] MEDS: FUROSEMIDE 40 MG/4 ML VIAL IV PUSH SCH ×2 (08:50→17:26)
[2017-06-13] MEDS: DILTIAZEM-CD 240 MG CAP ER PO SCH (08:56)
[2017-06-13] MEDS: buPROPion HCL 100 MG TAB PO SCH (08:56)
[2017-06-13] MEDS: SODIUM CHLORIDE 0.9% FLUSH 10 ML FLUSH IV FLUSH SCH ×2 (09:00→22:00)
[2017-06-13] MEDS: ARTIFICIAL TEARS OPTH SOLN 15 ML BTL EACH EYE SCH (09:00)
[2017-06-13] MEDS ORDERED: ASPIRIN EC 81 MG TABEC PO SCH (09:00)
[2017-06-13] MEDS: ISOSORBIDE MONONITRATE 30 MG CR TAB (IMDUR) PO SCH (09:00)
[2017-06-13] MEDS: POTASSIUM CHLORIDE 20 MEQ CONTROLLED RELEASE TAB PO SCH (09:00)
--- NOTE | 2017-06-13 09:43 | HHI.FPPN ---
Subjective Remarks agitated c/o edema c/o cough c/o congestion c/o pain all over d/w RN Objective Vitals Vital Signs Date Time Temp Pulse Resp B/P (MAP) Pulse Ox O2 Delivery O2 Flow Rate FiO2 06/13/17 07:36 94 High Flow Nasal Cannula 20.00 50 06/13/17 07:00 94 Nasal Cannula 20.00 60 06/13/17 07:00 81 06/13/17 07:00 97.9 81 22 125/86 (99) 94 06/13/17 05:41 101 120/86 06/13/17 04:00 101 128/77 06/13/17 03:00 110 06/13/17 03:00 98.6 107 20 130/88 (102) 97 06/13/17 01:21 20 06/13/17 00:56 90 High Flow Nasal Cannula 20.00 60 06/13/17 00:00 91 Nasal Cannula 20.00 60 06/12/17 23:00 93 06/12/17 23:00 98.5 99 20 127/75 (92) 91 06/12/17 20:07 90 Nasal Cannula 6.00 06/12/17 19:00 90 06/12/17 19:00 99.0 89 22 128/68 (88) 91 06/12/17 15:12 98.4 80 20 129/91 (104) 80 06/12/17 15:00 91 06/12/17 12:31 89 Nasal Cannula 6.00 06/12/17 12:08 94 Venturi Mask 50 06/12/17 11:29 98.6 87 20 138/68 (91) 94 06/12/17 11:00 98 I/O 06/12/17 06/12/17 06/12/17 06/13/17 06/13/17 06/13/17 07:00 15:00 23:00 07:00 15:00 23:00 Intake Total 960 ml 2620 ml 1111 ml Output Total 200 ml 1150 ml 1710 ml Balance 760 ml 1470 ml -599 ml Intake Oral 960 ml 2100 ml 1000 ml IV Total 520 ml 111 ml Output Urine Total 200 ml 1150 ml 1710 ml # Bowel Movements 0 2 Result Diagram: 06/13/17 0551 06/13/17 0342 Objective Remarks GENERAL: SKIN: Warm and dry. HEAD: Atraumatic. Normocephalic. EYES: Pupils equal and round. No scleral icterus. No injection or drainage. ENT: No nasal bleeding or discharge. Mucous membranes pink and moist. NECK: Trachea midline. No JVD. CARDIOVASCULAR: IRR IRR, RESPIRATORY: B Rales and ronchi, tachypneic GASTROINTESTINAL: Abdomen soft, non-tender, nondistended. Hepatic and splenic margins not palpable. MUSCULOSKELETAL: 3 + edema. No obvious deformities. NEUROLOGICAL: Awake and alert. No obvious cranial nerve deficits. Motor grossly within normal limits. Five out of 5 muscle strength in the arms and legs. Normal speech. PSYCHIATRIC: Appropriate mood and affect; insight and judgment normal. Medications and IVs Current Medications Medications (Trade) Dose Ordered Sig/Whit Route Start Time Stop Time Status Last Admin (Ambien) 5 mg HS PRN PO 06/11/17 21:00 (Narcan Inj) 0.4 mg UNSCH PRN IV PUSH 06/11/17 21:00 (Milk Of Magnesia Liq) 30 ml Q12H PRN PO 06/11/17 21:00 (Ativan) 0.5 mg Q8H PRN PO 06/11/17 21:00 (Catapres) 0.1 mg Q6H PRN PO 06/11/17 21:00 (Haldol Inj) 5 mg Q4H PRN IM 06/11/17 21:00 Future Hold (Lasix Inj) 40 mg BID@09,18 IV PUSH 06/12/17 09:00 06/13/17 08:50 (Morphine Inj) 5 mg Q4H PRN IV PUSH 06/11/17 21:00 (Nitroglycerin 2% Oint) 1 inch Q6HR TOPICAL 06/12/17 00:00 06/13/17 04:52 (Protonix Inj) 40 mg Q24H IV PUSH 06/11/17 22:00 06/12/17 20:56 (Lovenox Inj) 120 mg Q12H SQ 06/11/17 22:00 06/13/17 08:49 Diltiazem HCl 125 mg/Sodium Chloride 125 ml @ 5 mls/hr TITRATE PRN IV 06/11/17 21:15 06/13/17 05:41 (Duoneb Neb) 1 ampule Q4HR NEB NEB 06/12/17 12:00 06/13/17 07:36 (Albuterol Neb) 2.5 mg Q2HR NEB PRN NEB 06/12/17 09:45 06/12/17 10:25 (Wellbutrin) 100 mg DAILY PO 06/13/17 09:00 06/13/17 08:56 (Apresoline) 25 mg TID PO 06/12/17 13:00 06/13/17 08:49 (Imdur) 30 mg DAILY PO 06/13/17 09:00 (Lyrica) 50 mg DAILY PO 06/13/17 09:00 06/13/17 08:50 (Symbicort 160-4.5 Mcg Inh) 2 puff BID INH 06/12/17 21:00 06/12/17 20:55 (NS Flush) 2 ml UNSCH PRN IV FLUSH 06/12/17 13:00 (NS Flush) 2 ml BID IV FLUSH 06/12/17 21:00 06/12/17 20:56 (Tylenol) 650 mg Q6H PRN PO 06/12/17 13:00 ([place]on 5-325 Mg) 1 tab Q4H PRN PO 06/12/17 13:00 06/13/17 08:49 (Morphine Inj) 2 mg Q2H PRN IV PUSH 06/12/17 13:00 (Protonix) 40 mg DAILY PO 06/13/17 09:00 06/13/17 08:50 (Tears Naturale Opth Soln) 1 drop TID EACH EYE 06/12/17 13:00 (Zofran Inj) 4 mg Q6H PRN IV PUSH 06/12/17 13:00 Miscellaneous Information 1 Q361D XX 06/12/17 09:45 (Chlorhexidine 2% Cloth) 3 pack Taper DAILY@04 TOP 06/13/17 04:00 06/09/18 03:59 06/13/17 04:00 (Chlorhexidine 2% Cloth) 3 pack UNSCH PRN TOP 06/12/17 09:45 (Amira-Colace) 1 tab BID PO 06/12/17 21:00 06/13/17 08:49 (Milk Of Magnesia Liq) 30 ml Q12H PRN PO 06/12/17 13:00 (Senokot) 17.2 mg Q12H PRN PO 06/12/17 13:15 (Dulcolax Supp) 10 mg DAILY PRN RECTAL 06/12/17 09:45 (Lactulose Liq) 30 ml DAILY PRN PO 06/12/17 09:45 Potassium Chloride 100 ml @ 50 mls/hr Q2H PRN IV 06/12/17 09:45 Potassium Chloride 100 ml @ 50 mls/hr Q2H PRN IV 06/12/17 09:45 (K-Lyte Cl Eff) 50 meq UNSCH PRN PO 06/12/17 09:45 Potassium Chloride 100 ml @ 25 mls/hr UNSCH PRN IV 06/12/17 09:45 Potassium Chloride 100 ml @ 50 mls/hr Q2H PRN IV 06/12/17 09:45 Magnesium Sulfate 4 gm/Sodium Chloride 100 ml @ 50 mls/hr UNSCH PRN IV 06/12/17 09:45 (Mag-Ox) 800 mg UNSCH PRN PO 06/12/17 09:45 Magnesium Sulfate 2 gm/Sodium Chloride 100 ml @ 50 mls/hr UNSCH PRN IV 06/12/17 09:45 (K-Phos) 2,000 mg Q4H PRN PO 06/12/17 09:45 Sodium Phosphate 30 mmol/Sodium Chloride 250 ml @ 42 mls/hr UNSCH PRN IV 06/12/17 09:45 (K-Phos) 2,000 mg UNSCH PRN PO/TUBE 06/12/17 09:45 Potassium Phosphate 30 mmol/ Sodium Chloride 260 ml @ 42 mls/hr UNSCH PRN IV 06/12/17 09:45 (D50w (Vial) Inj) 50 ml UNSCH PRN IV PUSH 06/12/17 09:45 (Glucagon Inj) 1 mg UNSCH PRN OTHER 06/12/17 13:00 (NovoLOG SUPPLEMENTAL SCALE) 1 Q6HR SQ 06/12/17 13:15 06/13/17 04:53 Levofloxacin/ Dextrose 150 ml @ 100 mls/hr Q24H IV 06/12/17 14:00 06/12/17 13:46 (Cardizem Cd) 240 mg DAILY PO 06/13/17 09:00 06/13/17 08:56 (Mucomyst 20% Liq) 600 mg BID PO 06/12/17 11:00 06/13/17 21:01 2/28/18 04:54 (KCl) 20 meq Q12HR PO 06/12/17 21:00 06/12/17 20:56 (SoluMEDROL INJ) 60 mg Q6HR IV PUSH 06/12/17 13:30 06/13/17 04:52 (Levemir Inj) 15 units Q12HR SQ 06/13/17 21:00 UNV (Levemir Inj) 20 units NOW ONCE SQ 06/13/17 09:45 06/13/17 09:46 UNV A/P Assessment and Plan ASSESSMENT: 1. Non-STEMI. 2. Atrial fibrillation with RVR. 3. CHF. 4. Cor pulmonale. 5. Fluid overload. 6. Cellulitis of the legs. 7. Hyperkalemia. 8. Hyponatremia. 9. Severe hyperglycemia. 10. Smoker. 11. Recent cellulitis of the abdomen and legs at [facility] and discharged last week. 12. COPD PLAN: 1. Cardizem drip. 2. Lovenox 120 mg subcutaneously b.i.d. 3. Lasix 40 IV b.i.d. 4. Haldol p.r.n. 5. Solu-Medrol 80 mg IV q.6 hours. 6. Nitroglycerin 2% ointment. 7. Protonix IV for GI prophylaxis. 8. DVT prophylaxis, on Lovenox b.i.d. 9. Telemetry. 10. Physical therapy. 11. Admit to ICU. 12. Consult pulmonary. 13. Consult to wave solder offbearer. Jozef Gilliland MD Jun 13, 2017 09:43
--- NOTE | 2017-06-13 09:51 | HHI.CCPN ---
Subjective Remarks/Hospital Course This is a 57-year-old male. Date of admission 06/11/2017. Date of consultation 06/12/2017. Past medical history includes seizure disorder, THC use , coronary artery disease 30% LAD 2015 heart catheterization, hypertension, dyslipidemia, oxygen dependent COPD, 2 L nasal cannula, peripheral neuropathy, gastroesophageal reflux disease and uncontrolled diabetes mellitus. According to records, patient was hospitalized at [facility] and was discharged within the past week. He states he has been compliant with his medications. Noted does have history of medical noncompliance. He presented to [facility] initially with chief complaint of "my legs are swollen". He is noted to have an elevated troponin of 0.11 and was admitted under Dr. Gilliland. Patient received albuterol/Ultram aerosols and furosemide 1. Patient placed on high flow nasal cannula. He patient refused CPAP due to claustrophobia. ABG revealed CO2 retention Chest x-ray revealed hyperinflated lungs. Troponin was 0.11. EKG is currently pending. Troponin downtrending to current the 0.06. Was placed on Nitropaste 2 inches every 6 hours and enoxaparin 120 mg twice daily. Call Center Representative been counseled as well. Denies chest pain, shortness of breath, abdominal pain. Main complaint is painful swelling in his legs. He states he occasionally smokes THC for pain management as tramadol does not provide adequate pain relief at home SUBJECTIVE 06/13: Resting comfortably in chair on high flow nasal cannula 20 L at 50%. Troponin trended downward from 0.11 which is 0.05. Denies chest pain. Call Center Representative placed the patient on diltiazem CD 240 mg p.o. daily with the diltiazem drip for additional rate control. Negative CT pulmonary angiogram for PE. Negative Doppler lower extremities for thrombus. Iron deficiency anemia workup in progress. Objective Vital Signs Date Time Temp Pulse Resp B/P (MAP) Pulse Ox O2 Delivery O2 Flow Rate FiO2 06/13/17 07:36 94 High Flow Nasal Cannula 20.00 50 06/13/17 07:00 81 06/13/17 07:00 97.9 22 125/86 (99) Intake and Output 06/13/17 06/13/17 06/14/17 08:00 16:00 00:00 Intake Total 1111 ml Output Total 1710 ml Balance -599 ml Result Diagram: 06/13/17 0551 06/13/17 0342 Other Results Microbiology Date/Time Source Procedure Growth Status 06/11/17 19:30 Blood Peripheral Aerobic Blood Culture - Preliminary NO GROWTH IN 1 DAY Resulted 06/11/17 19:30 Blood Peripheral Anaerobic Blood Culture - Preliminary NO GROWTH IN 1 DAY Resulted 06/12/17 10:20 Nasal Aspirate Influenza Types A,B Antigen (JOLLY) - Final NEGATIVE FOR FLU A AND B ANTIGEN.... Complete 06/12/17 10:36 Urine Catheterized Urine Legionella Antigen - Final PRESUMPTIVE NEGATIVE FOR LEGIONELLA P... Complete 06/12/17 10:36 Urine Catheterized Urine Streptococcus pneumoniae Antigen (M - Final PRESUMPTIVE NEGATIVE FOR STREPTOCOCCU... Complete Imaging Last Impressions Chest X-Ray 06/13/17 0000 Signed Impressions: Service Date/Time: Tuesday, June 13, 2017 04:39 - CONCLUSION: 1. Worsening bilateral lower lung zone airspace disease and probable trace pleural effusions. 2. Cardiomegaly. Alexei Medina MD Lower Extremity Ultrasound 06/12/17 0000 Signed Impressions: Service Date/Time: Monday, June 12, 2017 14:23 - CONCLUSION: No DVT in either lower extremity. Jose L Rodríguez MD CT Angiography 06/12/17 0000 Signed Impressions: Service Date/Time: Monday, June 12, 2017 11:42 - CONCLUSION: 1. No evidence of acute pulmonary embolism. 2. Bibasilar airway disease with bilateral subsegmental air space disease. 3. Emphysematous chronic obstructive pulmonary disease. 4. Cardiomegaly. 5. Ascites identified in the abdomen. Franklin Ibanez MD Objective Remarks GENERAL: 57-year-old male currently resting in chair in no acute distress on high flow nasal cannula SKIN: Warm and dry. Chronic venous stasis bilateral lower extremities HEAD: Atraumatic. Normocephalic. EYES: Pupils equal and round around 3 mm bilaterally and reactive. No scleral icterus. No injection or drainage. ENT: No nasal bleeding or discharge. Mucous membranes pink and moist. NECK: Trachea midline. No JVD. CARDIOVASCULAR: Tachycardic, IR. S1, S2 no strip without murmurs, clicks, gallops or rubs RESPIRATORY: Diminished breath sounds throughout. No wheezing is appreciated. I do not appreciate any rales on my examination GASTROINTESTINAL: Abdomen non-tender, protuberant. Hypoactive bowel sounds appreciated MUSCULOSKELETAL: Extremities with 2+ bilateral lower extremity edema. No obvious deformities. NEUROLOGICAL: Awake and alert. No obvious cranial nerve deficits. Motor grossly within normal limits. Five out of 5 muscle strength in the arms and legs. Normal speech. A/P Assessment and Plan Neuro/Psych: Seizure disorder NOS Chronic pain syndrome History of THC use Depression Acetaminophen 650 mg p.o. every 6 hours as needed fever Hydrocodone/acetaminophen 7.5/325 1 tablet every 4 hours as needed pain 1-5 Morphine sulfate 2 mg IV every 3 hours as needed pain 6-10 with 3 mg IV every 3 years. For breakthrough pain Continue pregabalin 50 mg once a daily and bupropion 100 mg once a daily/home medications for depression Patient is on tramadol 50 mg every 4 hours as needed pain at home CV: Elevated troponin Nonobstructive coronary disease History of hypertension Dyslipidemia Atrial fibrillation with rapid ventricular response Currently on enoxaparin 120 mg subcu twice daily Diltiazem drip at 15 mg an hour for rate control Started on diltiazem CD 240 mg p.o. daily Troponin 0.11 decrease to 0.06 to 0.05. Cardiology/Dr. Chaney has seen and evaluated the patient and recommended medical management 2D echocardiogram august 2016 revealed EF 55-60%. No regional wall motion abnormality. On furosemide 40 iv twice daily Patient is on hydralazine 25 mg 3 times daily and isosorbide mononitrate 30 mg daily at home. Resume Patient is on spironolactone 100 mg twice daily home. This is been held Patient has an aspirin 81 mg daily. This was held by cardiology secondary to bleeding risk Resp: Acute hypoxemic respiratory failure Chronic respiratory insufficiency/COPD 2 L oxygen dependent Ongoing tobacco abuse HFNC 50% FiO2 20 L titrated to maintain saturations greater than or equal to 90 percent Incentive spirometry while awake Albuterol/ipratropium aerosols every 4 hours with albuterol aerosols every 2 hours. Dyspnea Resumed fluticasone/salmeterol 250/50 1 inhalation twice daily Methylprednisolone succinate 60 mg IV every 6 hours Patient is on albuterol/ipratropium aerosols every 4 hours as needed home along with albuterol aerosols every 4 hours as needed dyspnea Negative CT pulmonary angiogram for central PE. Emphysematous changes. Possible diffuse infiltrative process Tobacco cessation self-education booklet will be provided GI: Gastroesophageal reflux disease Chronic constipation Hypoalbuminemia Patient is currently on diabetic diet.. Pantoprazole 40 mg daily for GI prophylaxis. Patient is on omeprazole 40 mg daily at home Docusate sodium/senna 1 tablet twice daily for bowel regimen Patient is on senna as an outpatient : Mcclendon catheter if indicated for accurate I's and O's in a critically ill patient Endo: Diabetes mellitus Sliding scale insulin with Novulog with Accu-Cheks to maintain euglycemia/high regimen before meals/at bedtime Holding insulin glargine 80 units subcu twice daily. Start on insulin detemir 15 units subcu twice daily. Renal: Creatinine currently close to normal limits Monitor urine output Accurate I's and O's Recheck BMP in a.m. Heme: Microcytic hypochromic anemia Patient has not had an EGD or colonoscopy done Does not meet transfusion threshold at the time We will check Hemoccult stool and iron studies 1 while on enoxaparin ID: Currently levofloxacin and 1 dose vancomycin for possible community acquired pneumonia/sepsis 06/12 blood cultures 2, sputum and influenza no growth to date/negative. Sputum not performed. MSK: Elevated BMI Weight loss encouraged PT evaluate and treat FEN: Hyponatremia Replace electrolytes as clinically indicated Access -Utilize peripheral IV. Central and if indicated Prophylaxis -GI -pantoprazole -DVT -SCD/enoxaparen Level 2 follow-up Emiliano Portillo MD Jun 13, 2017 09:51
[2017-06-13] MEDS: BUDESONIDE-FORMOTEROL 160/4.5 MCG INHALER INH SCH ×2 (10:16→21:58)
[2017-06-13] MEDS ORDERED: INSULIN DETEMIR 100 UNITS/ML VIAL SQ ONE (10:30)
[2017-06-13 11:12] LABS: IRON (FE) 12 MCG/DL (65-175)
[2017-06-13 11:21] LABS: FERRITIN 24 NG/ML (26-388); TOTAL IRON BINDING CAPACITY 399 MCG/DL (250-450)
--- NOTE | 2017-06-13 11:35 | PD.CARD.PN ---
Subjective Subjective Remarks Much less SOB. Asking when he can go home. No chest pain Objective Medications Current Medications Medications (Trade) Dose Ordered Sig/Whit Route Start Time Stop Time Status Last Admin (Ambien) 5 mg HS PRN PO 06/11/17 21:00 (Narcan Inj) 0.4 mg UNSCH PRN IV PUSH 06/11/17 21:00 (Milk Of Magnesia Liq) 30 ml Q12H PRN PO 06/11/17 21:00 (Ativan) 0.5 mg Q8H PRN PO 06/11/17 21:00 (Catapres) 0.1 mg Q6H PRN PO 06/11/17 21:00 (Haldol Inj) 5 mg Q4H PRN IM 06/11/17 21:00 Future Hold (Lasix Inj) 40 mg BID@ IV PUSH 06/12/17 09:00 06/13/17 08:50 (Nitroglycerin 2% Oint) 1 inch Q6HR TOPICAL 06/12/17 00:00 06/13/17 04:52 (Lovenox Inj) 120 mg Q12H SQ 06/11/17 22:00 06/13/17 08:49 Diltiazem HCl 125 mg/Sodium Chloride 125 ml @ 5 mls/hr TITRATE PRN IV 06/11/17 21:15 06/13/17 05:41 (Duoneb Neb) 1 ampule Q4HR NEB NEB 06/12/17 12:00 06/13/17 11:12 (Albuterol Neb) 2.5 mg Q2HR NEB PRN NEB 06/12/17 09:45 06/12/17 10:25 (Wellbutrin) 100 mg DAILY PO 06/13/17 09:00 06/13/17 08:56 (Apresoline) 25 mg TID PO 06/12/17 13:00 06/13/17 08:49 (Imdur) 30 mg DAILY PO 06/13/17 09:00 06/13/17 09:00 (Lyrica) 50 mg DAILY PO 06/13/17 09:00 06/13/17 08:50 (Symbicort 160-4.5 Mcg Inh) 2 puff BID INH 06/12/17 21:00 06/13/17 10:16 (NS Flush) 2 ml UNSCH PRN IV FLUSH 06/12/17 13:00 (NS Flush) 2 ml BID IV FLUSH 06/12/17 21:00 06/13/17 09:00 (Tylenol) 650 mg Q6H PRN PO 06/12/17 13:00 (Protonix) 40 mg DAILY PO 06/13/17 09:00 06/13/17 08:50 (Zofran Inj) 4 mg Q6H PRN IV PUSH 06/12/17 13:00 Miscellaneous Information 1 Q361D XX 06/12/17 09:45 (Chlorhexidine 2% Cloth) 3 pack Taper DAILY@04 TOP 06/13/17 04:00 06/09/18 03:59 06/13/17 04:00 (Chlorhexidine 2% Cloth) 3 pack UNSCH PRN TOP 06/12/17 09:45 (Amira-Colace) 1 tab BID PO 06/12/17 21:00 06/13/17 08:49 (Milk Of Magnesia Liq) 30 ml Q12H PRN PO 06/12/17 13:00 (Senokot) 17.2 mg Q12H PRN PO 06/12/17 13:15 (Dulcolax Supp) 10 mg DAILY PRN RECTAL 06/12/17 09:45 (Lactulose Liq) 30 ml DAILY PRN PO 06/12/17 09:45 Potassium Chloride 100 ml @ 50 mls/hr Q2H PRN IV 06/12/17 09:45 Potassium Chloride 100 ml @ 50 mls/hr Q2H PRN IV 06/12/17 09:45 (K-Lyte Cl Eff) 50 meq UNSCH PRN PO 06/12/17 09:45 Potassium Chloride 100 ml @ 25 mls/hr UNSCH PRN IV 06/12/17 09:45 Potassium Chloride 100 ml @ 50 mls/hr Q2H PRN IV 06/12/17 09:45 Magnesium Sulfate 4 gm/Sodium Chloride 100 ml @ 50 mls/hr UNSCH PRN IV 06/12/17 09:45 (Mag-Ox) 800 mg UNSCH PRN PO 06/12/17 09:45 Magnesium Sulfate 2 gm/Sodium Chloride 100 ml @ 50 mls/hr UNSCH PRN IV 06/12/17 09:45 (K-Phos) 2,000 mg Q4H PRN PO 06/12/17 09:45 Sodium Phosphate 30 mmol/Sodium Chloride 250 ml @ 42 mls/hr UNSCH PRN IV 06/12/17 09:45 (K-Phos) 2,000 mg UNSCH PRN PO/TUBE 06/12/17 09:45 Potassium Phosphate 30 mmol/ Sodium Chloride 260 ml @ 42 mls/hr UNSCH PRN IV 06/12/17 09:45 (D50w (Vial) Inj) 50 ml UNSCH PRN IV PUSH 06/12/17 09:45 (Glucagon Inj) 1 mg UNSCH PRN OTHER 06/12/17 13:00 Levofloxacin/ Dextrose 150 ml @ 100 mls/hr Q24H IV 06/12/17 14:00 06/12/17 13:46 (Cardizem Cd) 240 mg DAILY PO 06/13/17 09:00 06/13/17 08:56 (Mucomyst 20% Liq) 600 mg BID PO 06/12/17 11:00 06/13/17 21:01 06/13/17 10:54 (KCl) 20 meq Q12HR PO 06/12/17 21:00 06/12/17 20:56 (SoluMEDROL INJ) 60 mg Q6HR IV PUSH 06/12/17 13:30 06/13/17 04:52 (Levemir Inj) 15 units Q12HR SQ 06/13/17 21:00 (NovoLOG SUPPLEMENTAL SCALE) 1 ACHS AND 3AM SQ 06/13/17 12:00 (Langdon 7.5-325 Mg) 1 tab Q4H PRN PO 06/13/17 09:45 (Morphine Inj) 4 mg Q3H PRN IV PUSH 06/13/17 09:45 (Morphine Inj) 2 mg Q3H PRN IV PUSH 06/13/17 09:45 Vital Signs / I&O Vital Signs Date Time Temp Pulse Resp B/P (MAP) Pulse Ox O2 Delivery O2 Flow Rate FiO2 06/13/17 11:00 98.9 89 20 123/63 (83) 90 06/13/17 11:00 89 06/13/17 09:50 22 06/13/17 09:50 22 06/13/17 07:36 94 High Flow Nasal Cannula 20.00 50 06/13/17 07:00 94 Nasal Cannula 20.00 60 06/13/17 07:00 81 06/13/17 07:00 97.9 81 22 125/86 (99) 94 06/13/17 05:41 101 120/86 06/13/17 04:00 101 128/77 06/13/17 03:00 110 06/13/17 03:00 98.6 107 20 130/88 (102) 97 06/13/17 00:56 90 High Flow Nasal Cannula 20.00 60 06/13/17 00:00 91 Nasal Cannula 20.00 60 06/12/17 23:00 93 06/12/17 23:00 98.5 99 20 127/75 (92) 91 06/12/17 20:07 90 Nasal Cannula 6.00 06/12/17 19:00 90 06/12/17 19:00 99.0 89 22 128/68 (88) 91 06/12/17 15:12 98.4 80 20 129/91 (104) 80 06/12/17 15:00 91 06/12/17 12:31 89 Nasal Cannula 6.00 06/12/17 12:08 94 Venturi Mask 50 I/O 06/12/17 06/12/17 06/12/17 06/13/17 06/13/17 06/13/17 07:00 15:00 23:00 07:00 15:00 23:00 Intake Total 960 ml 2620 ml 1361 ml Output Total 200 ml 1150 ml 1710 ml Balance 760 ml 1470 ml -349 ml Intake Oral 960 ml 2100 ml 1000 ml IV Total 520 ml 361 ml Output Urine Total 200 ml 1150 ml 1710 ml # Bowel Movements 0 2 Physical Exam Tele AF with CVR. Unable to come down on his 15mg/hr IV Dily Alert. Not using accessory muscles like yeserday. Now on nasal canula Morbidly obese CV S1S2 irr irr Chest severely diminished BS with scattered wheezes Abd obes Ext severe LE edema Laboratory Laboratory Tests Test 06/12/17 16:24 06/13/17 03:42 06/13/17 05:51 Potassium Level 5.0 MEQ/L 5.0 MEQ/L Troponin I 0.05 NG/ML Prothrombin Time 10.8 SEC Prothromb Time International Ratio 1.1 RATIO Activated Partial Thromboplast Time 28.5 SEC Blood Urea Nitrogen 26 MG/DL Creatinine 0.88 MG/DL Random Glucose 326 MG/DL Total Protein 6.3 GM/DL Albumin 3.2 GM/DL Calcium Level 9.1 MG/DL Phosphorus Level 2.8 MG/DL Magnesium Level 2.4 MG/DL Alkaline Phosphatase 191 U/L Aspartate Amino Transf (AST/SGOT) 8 U/L Alanine Aminotransferase (ALT/SGPT) 21 U/L Total Bilirubin 0.5 MG/DL Sodium Level 132 MEQ/L Chloride Level 93 MEQ/L Carbon Dioxide Level 31.1 MEQ/L Anion Gap 8 MEQ/L Estimat Glomerular Filtration Rate 90 ML/MIN Iron Level 12 MCG/DL Total Iron Binding Capacity 399 MCG/DL Percent Iron Saturation 3.0 % Ferritin 24 NG/ML White Blood Count 7.0 TH/MM3 Red Blood Count 4.72 MIL/MM3 Hemoglobin 9.4 GM/DL Hematocrit 33.4 % Mean Corpuscular Volume 70.7 FL Mean Corpuscular Hemoglobin 19.8 PG Mean Corpuscular Hemoglobin Concent 28.1 % Red Cell Distribution Width 26.9 % Platelet Count 230 TH/MM3 Mean Platelet Volume 8.2 FL Neutrophils (%) (Auto) 92.9 % Lymphocytes (%) (Auto) 4.7 % Monocytes (%) (Auto) 2.4 % Eosinophils (%) (Auto) 0.0 % Basophils (%) (Auto) 0.0 % Neutrophils # (Auto) 6.5 TH/MM3 Lymphocytes # (Auto) 0.3 TH/MM3 Monocytes # (Auto) 0.2 TH/MM3 Eosinophils # (Auto) 0.0 TH/MM3 Basophils # (Auto) 0.0 TH/MM3 CBC Comment AUTO DIFF Differential Total Cells Counted 100 Neutrophils % (Manual) 98 % Lymphocytes % 1 % Monocytes % 1 % Neutrophils # (Manual) 6.9 TH/MM3 Nucleated Red Blood Cells 1 /100 WBC Differential Comment FINAL DIFF MANUAL Platelet Estimate NORMAL Platelet Morphology Comment NORMAL Polychromasia 2.8 % Ovalocytes 1+ Blood Smear Pathologist Review Lactic Acid Level 2.9 mmol/L Imaging Last 24 hours Impressions Chest X-Ray 06/13/17 0000 Signed Impressions: Service Date/Time: Tuesday, June 13, 2017 04:39 - CONCLUSION: 1. Worsening bilateral lower lung zone airspace disease and probable trace pleural effusions. 2. Cardiomegaly. Alexei Medina MD Assessment and Plan Problem List: (1) Atrial flutter with rapid ventricular response ICD Codes: I48.92 - Unspecified atrial flutter Plan: Consult Dr. North - suspect he will need ablation (2) Pickwickian syndrome ICD Codes: E66.2 - Morbid (severe) obesity with alveolar hypoventilation (3) Morbid obesity ICD Codes: E66.01 - Morbid (severe) obesity due to excess calories (4) Tobacco abuse ICD Codes: Z72.0 - Tobacco abuse Status: Chronic (5) CHF (congestive heart failure) ICD Codes: I50.9 - Congestive heart failure Status: Chronic Plan: Cont diuresis, echo pending Victoriano Chaney MD Jun 13, 2017 11:35
--- NOTE | 2017-06-13 11:37 | EKG ---
Date Performed: 06/12/2017 Time Performed: 10:47:36 PTAGE: 57 years EKG: Atrial flutter Rightward axis Anteroseptal T wave changes are nonspecific Abnormal ECG Sinc e the prior tracing, there has been no significant change DOCTOR: Tu Ruiz Interpretating Date/Time 06/13/2017 11:58:35
[2017-06-13] MEDS: MORPHINE SULFATE 2 MG/ML INJ IV PUSH PRN ×3 (11:41→22:09)
--- NOTE | 2017-06-13 12:04 | RADRPT ---
EXAM DATE/TIME: 06/13/2017 00:00 [place] COMPARISON: No previous studies available for comparison. INDICATIONS : ACS, diabetes mellitus, congestive heart failure TECHNIQUE: Four-cuff ankle and brachial pressures were obtained. Pulse cuff waveform tracings of the ankles were recorded, and ankle-brachial indices were calculated. PRESSURES (mmHg): Brachial (arm): Right IV SITE Left 123 Ankle: Right 109 Left 108 SAHRA: Right 0.89 Left 0.88 TBI: Right 0.67 PULSED CUFF WAVEFORMS: Wanted monophasic tracings CONCLUSION: Borderline ankle indices. Satisfactory preservation of toe pressures Harley Anne MD on June 13, 2017 at 12:02 Board Certified Radiologist. This report was verified electronically.
[2017-06-13] MEDS: LEVOFLOXACIN 750 MG PREMIX INJ 150 ML IV SCH (13:15)
[2017-06-13] MEDS ORDERED: DILTIAZEM HCL 25 MG/5 ML VIAL ONE (13:28)
[2017-06-13] MEDS: ACETAMINOPHEN/HYDROcodone 325 MG/7.5 MG TAB PO PRN ×2 (14:45→18:49)
--- NOTE | 2017-06-13 16:43 | ECHRPT ---
Indication: EF assessment of CHF CONCLUSIONS Moderately dilated left ventricle. The left ventricular systolic function is severely reduced with an estimated ejection fraction in th e range of 30-35%. The right ventricular systoilc function is moderately decreased. The right ventricle is moderately dilated. There is mild to moderate tricuspid valve regurgitation. The estimated pulmonary arterial pressure is 37.7 mmHg. very technically limited study BP: 138 / 68 HR: 87 Rhythm: Atrial fibrillation, Atrial flut ter MEASUREMENTS (Male / Female) Normal Values Technical Quality:Very technically difficult study DOPPLER TR Peak Velocity 263.0 cm/s TR Peak Gradient 27.7 mmHg Right Atrial Pressure 10.0 mmHg Pulmonary Artery Systolic Pressu 37.7 mmHg Right Ventricular Systolic Press 37.7 mmHg FINDINGS LEFT VENTRICLE Moderately dilated left ventricle. The left ventricular systolic function is severely reduced with an estimated ejection fraction in th e range of 30-35%. RIGHT VENTRICLE The right ventricular systoilc function is moderately decreased. The right ventricle is moderately dilated. TRICUSPID VALVE There is mild to moderate tricuspid valve regurgitation. The estimated pulmonary arterial pressure is 37.7 mmHg. Young Rosado MD, FACC, FSCAI (Electronically Signed) Final Date:13 June 2017 16:42
--- NOTE | 2017-06-13 18:13 | HHI.PR ---
Subjective Remarks 57 YOWM with COPD.JEFF,A.Flutter, Nicotine use Breathing better Did't use CPAP Objective Vital Signs Vital Signs Date Time Temp Pulse Resp B/P (MAP) Pulse Ox O2 Delivery O2 Flow Rate FiO2 06/13/17 15:00 92 06/13/17 15:00 98.6 92 20 127/68 (87) 90 06/13/17 11:46 20 06/13/17 11:00 98.9 89 20 123/63 (83) 90 06/13/17 11:00 89 06/13/17 09:50 22 06/13/17 09:50 22 06/13/17 07:36 94 High Flow Nasal Cannula 20.00 50 06/13/17 07:00 94 Nasal Cannula 20.00 60 06/13/17 07:00 81 06/13/17 07:00 97.9 81 22 125/86 (99) 94 06/13/17 05:41 101 120/86 06/13/17 04:00 101 128/77 06/13/17 03:00 110 06/13/17 03:00 98.6 107 20 130/88 (102) 97 06/13/17 00:56 90 High Flow Nasal Cannula 20.00 60 06/13/17 00:00 91 Nasal Cannula 20.00 60 06/12/17 23:00 93 06/12/17 23:00 98.5 99 20 127/75 (92) 91 06/12/17 20:07 90 Nasal Cannula 6.00 06/12/17 19:00 90 06/12/17 19:00 99.0 89 22 128/68 (88) 91 I/O 06/12/17 06/12/17 06/12/17 06/13/17 06/13/17 06/13/17 07:00 15:00 23:00 07:00 15:00 23:00 Intake Total 960 ml 2620 ml 1361 ml 150 ml 720 ml Output Total 200 ml 1150 ml 1710 ml 1775 ml Balance 760 ml 1470 ml -349 ml 150 ml -1055 ml Intake Oral 960 ml 2100 ml 1000 ml 720 ml IV Total 520 ml 361 ml 150 ml Output Urine Total 200 ml 1150 ml 1710 ml 1775 ml # Bowel Movements 0 2 0 Result Diagram: 06/13/17 0551 06/13/17 0342 Objective Remarks GENERAL: Obese WM, mild sob SKIN: Warm and dry. HEAD: Normocephalic. EYES: No scleral icterus. No injection or drainage. NECK: Supple, trachea midline. No JVD or lymphadenopathy. CARDIOVASCULAR: Regular rate and rhythm without murmurs, gallops, or rubs. RESPIRATORY: Breath sounds equal bilaterally. No accessory muscle use. GASTROINTESTINAL: Abdomen soft, non-tender, nondistended. MUSCULOSKELETAL: No cyanosis, ++ edema. BACK: Nontender without obvious deformity. No CVA tenderness. A/P Assessment and Plan Hypercapnoic RF COPD Exac JEFF A.Flutter Hyperglycemia Nicotine use PLAN: IV Solumedrol Aerosol nebs Cont ABX Cardiazem for rate controll 02 to keep sat 88-92% Being considered for ablation. Ankit Morel MD Jun 13, 2017 18:13
[2017-06-13] MEDS: POTASSIUM CHLORIDE 10 MEQ CONTROLLED RELEASE TAB PO SCH (22:01)
[2017-06-13] MEDS: INSULIN DETEMIR 100 UNITS/ML VIAL SQ SCH (22:02)
[2017-06-14] VITALS (14 sets, daily range): BP systolic 121–136; BP diastolic 67–80; PULSE 80–120; RESP 20–22; TEMP 97.7–98.8; O2SAT 92–97
[2017-06-14] MEDS: RESP: ALBUTEROL 2.5 MG/IPRATROPIUM 0.5 MG NEB (SCH) NEB ×6 (00:10→20:07)
[2017-06-14] MEDS: NITROGLYCERIN 2% OINT 1 GM PACKET TOPICAL SCH ×4 (00:13→18:00)
[2017-06-14] MEDS: methylPREDNISolone SOD SUCC 125 MG/2 ML VIAL IV PUSH SCH ×4 (00:13→17:44)
[2017-06-14] MEDS: ACETAMINOPHEN/HYDROcodone 325 MG/7.5 MG TAB PO PRN ×5 (00:14→20:25)
[2017-06-14] MEDS: INSULIN ASPART SUPPLEMENTAL SCALE SQ SCH ×5 (03:10→22:30)
[2017-06-14] MEDS: CHLORHEXIDINE GLUCONATE 2 % 1 PACK (2 CLOTHS) TOP SCH (03:10)
[2017-06-14 04:34] LABS: HEMATOCRIT 33.5 % (39.0-51.0); HEMOGLOBIN 9.5 GM/DL (13.0-17.0); MEAN CELL VOLUME 69.8 FL (80.0-100.0); MEAN CORPUSCULAR HEMOGLOBIN 19.9 PG (27.0-34.0); MEAN PLATELET VOLUME 8.3 FL (7.0-11.0); PLATELET COUNT 201 TH/MM3 (150-450); RED BLOOD COUNT 4.79 MIL/MM3 (4.50-5.90); RED CELL DISTRIBUTION WIDTH 26.4 % (11.6-17.2)
[2017-06-14 04:47] LABS: MEAN CORPUSCULAR HGB CONC 28.5 % (32.0-36.0)
[2017-06-14] MEDS: MORPHINE SULFATE 2 MG/ML INJ IV PUSH PRN ×5 (06:17→22:28)
--- NOTE | 2017-06-14 08:20 | PD.CARD.PN ---
Subjective Subjective Remarks Remains dyspneic. Objective Medications Current Medications Medications (Trade) Dose Ordered Sig/Whit Route Start Time Stop Time Status Last Admin (Ambien) 5 mg HS PRN PO 06/11/17 21:00 (Narcan Inj) 0.4 mg UNSCH PRN IV PUSH 06/11/17 21:00 (Milk Of Magnesia Liq) 30 ml Q12H PRN PO 06/11/17 21:00 (Ativan) 0.5 mg Q8H PRN PO 06/11/17 21:00 (Catapres) 0.1 mg Q6H PRN PO 06/11/17 21:00 (Haldol Inj) 5 mg Q4H PRN IM 06/11/17 21:00 Future Hold (Lasix Inj) 40 mg BID@ IV PUSH 06/12/17 09:00 06/13/17 17:26 (Nitroglycerin 2% Oint) 1 inch Q6HR TOPICAL 06/12/17 00:00 06/14/17 06:02 (Lovenox Inj) 120 mg Q12H SQ 06/11/17 22:00 06/13/17 22:01 Diltiazem HCl 125 mg/Sodium Chloride 125 ml @ 5 mls/hr TITRATE PRN IV 06/11/17 21:15 06/13/17 05:41 (Duoneb Neb) 1 ampule Q4HR NEB NEB 06/12/17 12:00 06/14/17 07:52 (Albuterol Neb) 2.5 mg Q2HR NEB PRN NEB 06/12/17 09:45 06/12/17 10:25 (Wellbutrin) 100 mg DAILY PO 06/13/17 09:00 06/13/17 08:56 (Apresoline) 25 mg TID PO 06/12/17 13:00 06/13/17 17:26 (Imdur) 30 mg DAILY PO 06/13/17 09:00 06/13/17 09:00 (Lyrica) 50 mg DAILY PO 06/13/17 09:00 06/13/17 08:50 (Symbicort 160-4.5 Mcg Inh) 2 puff BID INH 06/12/17 21:00 06/13/17 21:58 (NS Flush) 2 ml UNSCH PRN IV FLUSH 06/12/17 13:00 (NS Flush) 2 ml BID IV FLUSH 06/12/17 21:00 06/13/17 22:00 (Tylenol) 650 mg Q6H PRN PO 06/12/17 13:00 (Protonix) 40 mg DAILY PO 06/13/17 09:00 06/13/17 08:50 (Zofran Inj) 4 mg Q6H PRN IV PUSH 06/12/17 13:00 Miscellaneous Information 1 Q361D XX 06/12/17 09:45 (Chlorhexidine 2% Cloth) 3 pack Taper DAILY@04 TOP 06/13/17 04:00 06/09/18 03:59 06/14/17 03:10 (Chlorhexidine 2% Cloth) 3 pack UNSCH PRN TOP 06/12/17 09:45 (Amira-Colace) 1 tab BID PO 06/12/17 21:00 06/13/17 22:01 (Milk Of Magnesia Liq) 30 ml Q12H PRN PO 06/12/17 13:00 (Senokot) 17.2 mg Q12H PRN PO 06/12/17 13:15 (Dulcolax Supp) 10 mg DAILY PRN RECTAL 06/12/17 09:45 (Lactulose Liq) 30 ml DAILY PRN PO 06/12/17 09:45 Potassium Chloride 100 ml @ 50 mls/hr Q2H PRN IV 06/12/17 09:45 Potassium Chloride 100 ml @ 50 mls/hr Q2H PRN IV 06/12/17 09:45 (K-Lyte Cl Eff) 50 meq UNSCH PRN PO 06/12/17 09:45 Potassium Chloride 100 ml @ 25 mls/hr UNSCH PRN IV 06/12/17 09:45 Potassium Chloride 100 ml @ 50 mls/hr Q2H PRN IV 06/12/17 09:45 Magnesium Sulfate 4 gm/Sodium Chloride 100 ml @ 50 mls/hr UNSCH PRN IV 06/12/17 09:45 (Mag-Ox) 800 mg UNSCH PRN PO 06/12/17 09:45 Magnesium Sulfate 2 gm/Sodium Chloride 100 ml @ 50 mls/hr UNSCH PRN IV 06/12/17 09:45 (K-Phos) 2,000 mg Q4H PRN PO 06/12/17 09:45 Sodium Phosphate 30 mmol/Sodium Chloride 250 ml @ 42 mls/hr UNSCH PRN IV 06/12/17 09:45 (K-Phos) 2,000 mg UNSCH PRN PO/TUBE 06/12/17 09:45 Potassium Phosphate 30 mmol/ Sodium Chloride 260 ml @ 42 mls/hr UNSCH PRN IV 06/12/17 09:45 (D50w (Vial) Inj) 50 ml UNSCH PRN IV PUSH 06/12/17 09:45 (Glucagon Inj) 1 mg UNSCH PRN OTHER 06/12/17 13:00 Levofloxacin/ Dextrose 150 ml @ 100 mls/hr Q24H IV 06/12/17 14:00 06/13/17 13:15 (Cardizem Cd) 240 mg DAILY PO 06/13/17 09:00 06/13/17 08:56 (SoluMEDROL INJ) 60 mg Q6HR IV PUSH 06/12/17 13:30 06/14/17 06:02 (Levemir Inj) 15 units Q12HR SQ 06/13/17 21:00 06/13/17 22:02 (NovoLOG SUPPLEMENTAL SCALE) 1 ACHS AND 3AM SQ 06/13/17 12:00 06/14/17 07:59 (Bronson 7.5-325 Mg) 1 tab Q4H PRN PO 06/13/17 09:45 06/14/17 07:30 (Morphine Inj) 4 mg Q3H PRN IV PUSH 06/13/17 09:45 (Morphine Inj) 2 mg Q3H PRN IV PUSH 06/13/17 09:45 06/14/17 06:17 (KCl) 10 meq Q12HR PO 06/13/17 21:00 06/13/17 22:01 Vital Signs / I&O Vital Signs Date Time Temp Pulse Resp B/P (MAP) Pulse Ox O2 Delivery O2 Flow Rate FiO2 06/14/17 07:52 95 Nasal Cannula 6.00 06/14/17 07:24 98.5 80 20 136/72 (93) 97 06/14/17 07:22 83 06/14/17 07:17 97 Nasal Cannula 6.00 06/14/17 06:30 20 06/14/17 06:27 86 129/81 06/14/17 04:45 93 06/14/17 03:00 97.7 111 20 135/74 (94) 95 06/14/17 00:19 95 21 06/14/17 00:00 87 06/14/17 00:00 97.8 96 20 125/73 (90) 97 06/13/17 20:46 95 Nasal Cannula 6.00 06/13/17 20:00 97.9 82 20 131/74 (93) 95 06/13/17 19:50 20 06/13/17 19:00 95 06/13/17 19:00 94 Nasal Cannula 6.00 06/13/17 15:00 92 06/13/17 15:00 98.6 92 20 127/68 (87) 90 06/13/17 11:00 98.9 89 20 123/63 (83) 90 06/13/17 11:00 89 06/13/17 09:50 22 06/13/17 09:50 22 I/O 06/13/17 06/13/17 06/13/17 06/14/17 06/14/17 06/14/17 07:00 15:00 23:00 07:00 15:00 23:00 Intake Total 1361 ml 150 ml 720 ml 1155 ml Output Total 1710 ml 1775 ml 2500 ml Balance -349 ml 150 ml -1055 ml -1345 ml Intake Oral 1000 ml 720 ml 960 ml IV Total 361 ml 150 ml 195 ml Output Urine Total 1710 ml 1775 ml 2500 ml # Bowel Movements 2 0 0 Physical Exam GENERAL: Morbidly obese male, lying in bed in no acute distress.. SKIN: Warm and dry. HEAD: Normocephalic. EYES: No scleral icterus. No injection or drainage. NECK: Supple, trachea midline. No JVD or lymphadenopathy. CARDIOVASCULAR: S1, S2, irregular rhythm, controlled rate. RESPIRATORY: Breath sounds very diminished, occasional inspiratory and expiratory wheezes GASTROINTESTINAL: Abdomen soft, non-tender, nondistended. EXTREMITIES: No cyanosis, or edema. NEUROLOGICAL: Awake, alert, and oriented x 3. Non-focal. Laboratory Laboratory Tests Test 06/14/17 04:07 White Blood Count 8.0 TH/MM3 Red Blood Count 4.79 MIL/MM3 Hemoglobin 9.5 GM/DL Hematocrit 33.5 % Mean Corpuscular Volume 69.8 FL Mean Corpuscular Hemoglobin 19.9 PG Mean Corpuscular Hemoglobin Concent 28.5 % Red Cell Distribution Width 26.4 % Platelet Count 201 TH/MM3 Mean Platelet Volume 8.3 FL Imaging Last Impressions Chest X-Ray 06/13/17 0000 Signed Impressions: Service Date/Time: Tuesday, June 13, 2017 04:39 - CONCLUSION: 1. Worsening bilateral lower lung zone airspace disease and probable trace pleural effusions. 2. Cardiomegaly. Alexei Medina MD Lower Extremity Ultrasound 06/12/17 0000 Signed Impressions: Service Date/Time: Monday, June 12, 2017 14:23 - CONCLUSION: No DVT in either lower extremity. Jose L Rodríguez MD CT Angiography 06/12/17 0000 Signed Impressions: Service Date/Time: Monday, June 12, 2017 11:42 - CONCLUSION: 1. No evidence of acute pulmonary embolism. 2. Bibasilar airway disease with bilateral subsegmental air space disease. 3. Emphysematous chronic obstructive pulmonary disease. 4. Cardiomegaly. 5. Ascites identified in the abdomen. Franklin Ibanez MD Assessment and Plan Problem List: (1) Atrial flutter with rapid ventricular response ICD Codes: I48.92 - Unspecified atrial flutter Plan: Plan for ablation Sunday per my discussion with Dr. North. (2) Morbid obesity ICD Codes: E66.01 - Morbid (severe) obesity due to excess calories Plan: Continue heart healthy diet. (3) CHF (congestive heart failure) ICD Codes: I50.9 - Congestive heart failure Status: Chronic Plan: EF 30-35% with moderate tricuspid regurgitation. Continue diuresis. Assessment and Plan Assessment and plan discussed with patient, RN and Dr. North. Problem Qualifiers (1) CHF (congestive heart failure): Sisi Joyce Jun 14, 2017 08:20
[2017-06-14] MEDS: FUROSEMIDE 40 MG/4 ML VIAL IV PUSH SCH ×2 (08:33→17:44)
[2017-06-14] MEDS: INSULIN DETEMIR 100 UNITS/ML VIAL SQ SCH (08:33)
[2017-06-14] MEDS: BUDESONIDE-FORMOTEROL 160/4.5 MCG INHALER INH SCH ×2 (08:33→20:23)
[2017-06-14] MEDS: PREGABALIN 25 MG CAP PO SCH (08:34)
[2017-06-14] MEDS: buPROPion HCL 100 MG TAB PO SCH (08:34)
[2017-06-14] MEDS: POTASSIUM CHLORIDE 10 MEQ CONTROLLED RELEASE TAB PO SCH ×2 (08:34→20:26)
[2017-06-14] MEDS: DILTIAZEM-CD 240 MG CAP ER PO SCH (08:34)
[2017-06-14] MEDS: hydrALAZINE HCL 25 MG TAB PO SCH ×3 (08:35→17:44)
[2017-06-14] MEDS: PANTOPRAZOLE SOD 40 MG DELAYED RELEASE TAB PO SCH (08:35)
[2017-06-14] MEDS: DOCUSATE SODIUM 50 MG/SENNA 8.6 MG TAB PO SCH ×2 (08:35→20:26)
[2017-06-14] MEDS: SODIUM CHLORIDE 0.9% FLUSH 10 ML FLUSH IV FLUSH SCH ×2 (08:35→20:26)
[2017-06-14] MEDS: ISOSORBIDE MONONITRATE 30 MG CR TAB (IMDUR) PO SCH (08:35)
[2017-06-14] MEDS ORDERED: PANTOPRAZOLE SOD 40 MG DELAYED RELEASE TAB PO SCH (09:00)
--- NOTE | 2017-06-14 09:50 | HHI.CCPN ---
Subjective Remarks/Hospital Course This is a 57-year-old male. Date of admission 06/11/2017. Date of consultation 06/12/2017. Past medical history includes seizure disorder, THC use , coronary artery disease 30% LAD 2015 heart catheterization, hypertension, dyslipidemia, oxygen dependent COPD, 2 L nasal cannula, peripheral neuropathy, gastroesophageal reflux disease and uncontrolled diabetes mellitus. According to records, patient was hospitalized at [facility] and was discharged within the past week. He states he has been compliant with his medications. Noted does have history of medical noncompliance. He presented to [facility] initially with chief complaint of "my legs are swollen". He is noted to have an elevated troponin of 0.11 and was admitted under Dr. Gilliland. Patient received albuterol/Ultram aerosols and furosemide 1. Patient placed on high flow nasal cannula. He patient refused CPAP due to claustrophobia. ABG revealed CO2 retention Chest x-ray revealed hyperinflated lungs. Troponin was 0.11. EKG is currently pending. Troponin downtrending to current the 0.06. Was placed on Nitropaste 2 inches every 6 hours and enoxaparin 120 mg twice daily. Administrative Office Manager been counseled as well. Denies chest pain, shortness of breath, abdominal pain. Main complaint is painful swelling in his legs. He states he occasionally smokes THC for pain management as tramadol does not provide adequate pain relief at home 06/13: Resting comfortably in chair on high flow nasal cannula 20 L at 50%. Troponin trended downward from 0.11 which is 0.05. Denies chest pain. Administrative Office Manager placed the patient on diltiazem CD 240 mg p.o. daily with the diltiazem drip for additional rate control. Negative CT pulmonary angiogram for PE. Negative Doppler lower extremities for thrombus. Iron deficiency anemia workup in progress. SUBJECTIVE 06/14: Currently on nasal cannula 6 L. Diltiazem currently at 5 mg an hour. Plan for ablation tomorrow per cardiology. Requesting to transfer room but stated he needs to be off diltiazem gtt prior to lateral transfer. Objective Vital Signs Date Time Temp Pulse Resp B/P (MAP) Pulse Ox O2 Delivery O2 Flow Rate FiO2 06/14/17 08:25 20 06/14/17 07:52 95 Nasal Cannula 6.00 06/14/17 07:24 98.5 80 136/72 (93) 06/14/17 00:19 21 Intake and Output 06/14/17 06/14/17 06/15/17 08:00 16:00 00:00 Intake Total 1155 ml Output Total 2500 ml Balance -1345 ml Result Diagram: 06/14/17 0407 06/13/17 0342 Other Results Microbiology Date/Time Source Procedure Growth Status 06/11/17 19:30 Blood Peripheral Aerobic Blood Culture - Preliminary NO GROWTH IN 2 DAYS Resulted 06/11/17 19:30 Blood Peripheral Anaerobic Blood Culture - Preliminary NO GROWTH IN 2 DAYS Resulted 06/12/17 10:20 Nasal Aspirate Influenza Types A,B Antigen (JOLLY) - Final NEGATIVE FOR FLU A AND B ANTIGEN.... Complete 06/12/17 10:36 Urine Catheterized Urine Legionella Antigen - Final PRESUMPTIVE NEGATIVE FOR LEGIONELLA P... Complete 06/12/17 10:36 Urine Catheterized Urine Streptococcus pneumoniae Antigen (M - Final PRESUMPTIVE NEGATIVE FOR STREPTOCOCCU... Complete Imaging Last Impressions Chest X-Ray 06/13/17 0000 Signed Impressions: Service Date/Time: Tuesday, June 13, 2017 04:39 - CONCLUSION: 1. Worsening bilateral lower lung zone airspace disease and probable trace pleural effusions. 2. Cardiomegaly. Alexei Medina MD Lower Extremity Ultrasound 06/12/17 0000 Signed Impressions: Service Date/Time: Monday, June 12, 2017 14:23 - CONCLUSION: No DVT in either lower extremity. Jose L Rodríguez MD CT Angiography 06/12/17 0000 Signed Impressions: Service Date/Time: Monday, June 12, 2017 11:42 - CONCLUSION: 1. No evidence of acute pulmonary embolism. 2. Bibasilar airway disease with bilateral subsegmental air space disease. 3. Emphysematous chronic obstructive pulmonary disease. 4. Cardiomegaly. 5. Ascites identified in the abdomen. Franklin Ibanez MD Objective Remarks GENERAL: 57-year-old male currently resting in chair in no acute distress on 6 L nasal cannula SKIN: Warm and dry. Chronic venous stasis bilateral lower extremities HEAD: Atraumatic. Normocephalic. EYES: Pupils equal and round around 3 mm bilaterally and reactive. No scleral icterus. No injection or drainage. ENT: No nasal bleeding or discharge. Mucous membranes pink and moist. NECK: Trachea midline. No JVD. CARDIOVASCULAR: Tachycardic, IR. S1, S2 no strip without murmurs, clicks, gallops or rubs RESPIRATORY: Diminished breath sounds throughout. No wheezing is appreciated. I do not appreciate any rales on my examination GASTROINTESTINAL: Abdomen non-tender, protuberant. Hypoactive bowel sounds appreciated MUSCULOSKELETAL: Extremities with 1-2+ bilateral lower extremity edema. No obvious deformities. NEUROLOGICAL: Awake and alert. No obvious cranial nerve deficits. Motor grossly within normal limits. Five out of 5 muscle strength in the arms and legs. Normal speech. A/P Assessment and Plan Neuro/Psych: Seizure disorder NOS Chronic pain syndrome History of THC use Depression Acetaminophen 650 mg p.o. every 6 hours as needed fever Hydrocodone/acetaminophen 7.5/325 1 tablet every 4 hours as needed pain 1-5 Morphine sulfate 2 mg IV every 3 hours as needed pain 6-10 with 3 mg IV every 3 years. For breakthrough pain Continue pregabalin 50 mg once a daily and bupropion 100 mg once a daily/home medications for depression Patient is on tramadol 50 mg every 4 hours as needed pain at home CV: Elevated troponin Nonobstructive coronary disease History of hypertension Dyslipidemia Atrial fibrillation with rapid ventricular response Currently on enoxaparin 120 mg subcu twice daily Diltiazem drip at 5 mg an hour for rate control Started on diltiazem CD 240 mg p.o. daily Troponin 0.11 decrease to 0.06 to 0.05. Cardiology/Dr. Chaney has seen and evaluated the patient and recommended medical management 2D echocardiogram august 2016 revealed EF 55-60%. No regional wall motion abnormality. On furosemide 40 iv twice daily Patient is on hydralazine 25 mg 3 times daily and isosorbide mononitrate 30 mg daily at home. Resume Patient is on spironolactone 100 mg twice daily home. This is been held Patient has an aspirin 81 mg daily. This was held by cardiology secondary to bleeding risk Resp: Acute hypoxemic respiratory failure Chronic respiratory insufficiency/COPD 2 L oxygen dependent Ongoing tobacco abuse Nasal cannula 6 L titrated to maintain saturations greater than or equal to 90 percent Incentive spirometry while awake Albuterol/ipratropium aerosols every 4 hours with albuterol aerosols every 2 hours. Dyspnea Resumed fluticasone/salmeterol 250/50 1 inhalation twice daily Methylprednisolone succinate 60 mg IV every 6 hours Patient is on albuterol/ipratropium aerosols every 4 hours as needed home along with albuterol aerosols every 4 hours as needed dyspnea Negative CT pulmonary angiogram for central PE. Emphysematous changes. Possible diffuse infiltrative process Tobacco cessation self-education booklet will be provided GI: Gastroesophageal reflux disease Chronic constipation Hypoalbuminemia Patient is currently on diabetic diet.. Pantoprazole 40 mg daily for GI prophylaxis. Patient is on omeprazole 40 mg daily at home Docusate sodium/senna 1 tablet twice daily for bowel regimen Patient is on senna as an outpatient : Mcclendon catheter if indicated for accurate I's and O's in a critically ill patient Endo: Diabetes mellitus Sliding scale insulin with Novulog with Accu-Cheks to maintain euglycemia/high regimen before meals/at bedtime. 90 units sliding scale insulin past 24 hours Holding insulin glargine 80 units subcu twice daily. Start on insulin detemir 25 units subcu twice daily. Renal: Creatinine currently close to normal limits Monitor urine output Accurate I's and O's Recheck BMP in a.m. Heme: Microcytic hypochromic anemia Patient has not had an EGD or colonoscopy done Does not meet transfusion threshold at the time We will check Hemoccult stool and iron studies 1 while on enoxaparin ID: Currently levofloxacin and 1 dose vancomycin for possible community acquired pneumonia/sepsis 06/12 blood cultures 2, sputum and influenza no growth to date/negative. Sputum not performed. MSK: Elevated BMI Weight loss encouraged PT evaluate and treat FEN: Hyponatremia Replace electrolytes as clinically indicated Access -Utilize peripheral IV. Central and if indicated Prophylaxis -GI -pantoprazole -DVT -SCD/enoxaparen Level 2 follow-up Emiliano Portillo MD Jun 14, 2017 09:50
[2017-06-14] MEDS: ENOXAPARIN SODIUM 120 MG/0.8 ML SYRINGE SQ SCH ×2 (10:04→22:00)
--- NOTE | 2017-06-14 11:48 | MB ---
cc: Ramón North MD DATE OF CONSULT: 06/13/2017 REASON FOR CONSULTATION: Atrial flutter with fast ventricular response and shortness of breath. HISTORY OF PRESENT ILLNESS: Mr. Guerra is a 57-year-old gentleman with morbid obesity, COPD, still smoking, sleep apnea who was admitted with Pickwickian syndrome who was admitted to the emergency room due to shortness of breath. He was found in atrial flutter with fast ventricular response. IV Cardizem was initiated. The patient's heart rate was controlled. The patient was transferred to the intensive care unit. I was consulted by Dr. Chaney for further evaluation and management. The chart was reviewed. The patient was evaluated. The case discussed extensively with Dr. Chaney. ALLERGIES: NONE. SOCIAL HISTORY: The patient still smoking. FAMILY HISTORY: Non-contributory to his current medical condition. MEDICATIONS: He is on levemir, he is on potassium, he is on NovoLog, Round O, morphine p.r.n., Imdur, Lyrica, Protonix, Cardizem 240 mg a day, Levaquin, Apresoline 25 mg 3 times a day. REVIEW OF SYSTEMS: The patient reported feeling better. Wants to get out of the unit. PHYSICAL EXAMINATION: GENERAL: Alert, fully oriented, sitting out of bed VITAL SIGNS: Blood pressure on evaluation 131/74, pulse 82, respiratory rate 20 LUNGS: Ventilated. CARDIOVASCULAR SYSTEM: S1, S2, irregular, no gallop. ABDOMEN: Obese, no mass. EXTREMITIES: No edema. Electrocardiogram showed atrial flutter, diffuse S-T changes. LABORATORY DATA: Hemoglobin 9.4, white blood cells 7.0. Potassium 5.0, creatinine 0.88, troponin 0.05. INR is 1.1. ASSESSMENT AND RECOMMENDATIONS: Mr. Guerra's condition continues to improve. Still with some shortness of breath. Heart rate is controlled. At this point, my recommendation is continue with current management. If the patient's condition continues to be improved, then I will consider atrial flutter ablation. Case extensively discussed with him. Ramón North MD HS/rt , 11:38 PM , 12:23 AM
[2017-06-14] MEDS: DILTIAZEM INJ 125 MG in SODIUM CHLORIDE 0.9% INJ 100 ML IV PRN (13:20)
[2017-06-14] MEDS: LEVOFLOXACIN 750 MG PREMIX INJ 150 ML IV SCH (14:12)
--- NOTE | 2017-06-14 15:00 | HHI.FPPN ---
Subjective Remarks pt and dgtr report he is having ablation tomorrow c/o SOB on 5 L d/w RN Objective Vitals Vital Signs Date Time Temp Pulse Resp B/P (MAP) Pulse Ox O2 Delivery O2 Flow Rate FiO2 06/14/17 14:46 18 06/14/17 13:20 122 06/14/17 11:03 83 06/14/17 11:02 98.8 93 20 127/69 (88) 93 06/14/17 09:43 133 06/14/17 09:40 18 06/14/17 08:25 20 06/14/17 07:52 95 Nasal Cannula 6.00 06/14/17 07:24 98.5 80 20 136/72 (93) 97 06/14/17 07:22 83 06/14/17 07:17 97 Nasal Cannula 6.00 06/14/17 06:27 86 129/81 06/14/17 04:45 93 06/14/17 03:00 97.7 111 20 135/74 (94) 95 06/14/17 00:19 95 21 06/14/17 00:00 87 06/14/17 00:00 97.8 96 20 125/73 (90) 97 06/13/17 20:46 95 Nasal Cannula 6.00 06/13/17 20:00 97.9 82 20 131/74 (93) 95 06/13/17 19:00 95 06/13/17 19:00 94 Nasal Cannula 6.00 06/13/17 15:00 92 06/13/17 15:00 98.6 92 20 127/68 (87) 90 I/O 06/13/17 06/13/17 06/13/17 06/14/17 06/14/17 06/14/17 07:00 15:00 23:00 07:00 15:00 23:00 Intake Total 1361 ml 150 ml 720 ml 1155 ml 100 ml Output Total 1710 ml 1775 ml 2500 ml Balance -349 ml 150 ml -1055 ml -1345 ml 100 ml Intake Oral 1000 ml 720 ml 960 ml IV Total 361 ml 150 ml 195 ml 100 ml Output Urine Total 1710 ml 1775 ml 2500 ml # Bowel Movements 2 0 0 Result Diagram: 06/14/17 0407 06/13/17 0342 Objective Remarks GENERAL: SKIN: Warm and dry. HEAD: Atraumatic. Normocephalic. EYES: Pupils equal and round. No scleral icterus. No injection or drainage. ENT: No nasal bleeding or discharge. Mucous membranes pink and moist. NECK: Trachea midline. No JVD. CARDIOVASCULAR: IRR IRR, RESPIRATORY: B Rales and ronchi, tachypneic GASTROINTESTINAL: Abdomen soft, non-tender, nondistended. Hepatic and splenic margins not palpable. MUSCULOSKELETAL: 3 + edema. No obvious deformities. NEUROLOGICAL: Awake and alert. No obvious cranial nerve deficits. Motor grossly within normal limits. Five out of 5 muscle strength in the arms and legs. Normal speech. PSYCHIATRIC: Appropriate mood and affect; insight and judgment normal. Medications and IVs Current Medications Medications (Trade) Dose Ordered Sig/Whit Route Start Time Stop Time Status Last Admin (Ambien) 5 mg HS PRN PO 06/11/17 21:00 (Narcan Inj) 0.4 mg UNSCH PRN IV PUSH 06/11/17 21:00 (Milk Of Magnesia Liq) 30 ml Q12H PRN PO 06/11/17 21:00 (Ativan) 0.5 mg Q8H PRN PO 06/11/17 21:00 (Catapres) 0.1 mg Q6H PRN PO 06/11/17 21:00 (Haldol Inj) 5 mg Q4H PRN IM 06/11/17 21:00 Future Hold (Lasix Inj) 40 mg BID@,18 IV PUSH 06/12/17 09:00 06/14/17 08:33 (Nitroglycerin 2% Oint) 1 inch Q6HR TOPICAL 06/12/17 00:00 06/14/17 11:44 (Lovenox Inj) 120 mg Q12H SQ 06/11/17 22:00 06/14/17 10:04 Diltiazem HCl 125 mg/Sodium Chloride 125 ml @ 5 mls/hr TITRATE PRN IV 06/11/17 21:15 06/14/17 13:20 (Duoneb Neb) 1 ampule Q4HR NEB NEB 06/12/17 12:00 06/14/17 11:38 (Albuterol Neb) 2.5 mg Q2HR NEB PRN NEB 06/12/17 09:45 06/12/17 10:25 (Wellbutrin) 100 mg DAILY PO 06/13/17 09:00 06/14/17 08:34 (Apresoline) 25 mg TID PO 06/12/17 13:00 06/14/17 13:19 (Imdur) 30 mg DAILY PO 06/13/17 09:00 06/14/17 08:35 (Lyrica) 50 mg DAILY PO 06/13/17 09:00 06/14/17 08:34 (Symbicort 160-4.5 Mcg Inh) 2 puff BID INH 06/12/17 21:00 06/14/17 08:33 (NS Flush) 2 ml UNSCH PRN IV FLUSH 06/12/17 13:00 (NS Flush) 2 ml BID IV FLUSH 06/12/17 21:00 06/14/17 08:35 (Tylenol) 650 mg Q6H PRN PO 06/12/17 13:00 (Protonix) 40 mg DAILY PO 06/13/17 09:00 06/14/17 08:35 (Zofran Inj) 4 mg Q6H PRN IV PUSH 06/12/17 13:00 Miscellaneous Information 1 Q361D XX 06/12/17 09:45 (Chlorhexidine 2% Cloth) 3 pack Taper DAILY@04 TOP 06/13/17 04:00 06/09/18 03:59 06/14/17 03:10 (Chlorhexidine 2% Cloth) 3 pack UNSCH PRN TOP 06/12/17 09:45 (Amira-Colace) 1 tab BID PO 06/12/17 21:00 06/14/17 08:35 (Milk Of Magnesia Liq) 30 ml Q12H PRN PO 06/12/17 13:00 (Senokot) 17.2 mg Q12H PRN PO 06/12/17 13:15 (Dulcolax Supp) 10 mg DAILY PRN RECTAL 06/12/17 09:45 (Lactulose Liq) 30 ml DAILY PRN PO 06/12/17 09:45 Potassium Chloride 100 ml @ 50 mls/hr Q2H PRN IV 06/12/17 09:45 Potassium Chloride 100 ml @ 50 mls/hr Q2H PRN IV 06/12/17 09:45 (K-Lyte Cl Eff) 50 meq UNSCH PRN PO 06/12/17 09:45 Potassium Chloride 100 ml @ 25 mls/hr UNSCH PRN IV 06/12/17 09:45 Potassium Chloride 100 ml @ 50 mls/hr Q2H PRN IV 06/12/17 09:45 Magnesium Sulfate 4 gm/Sodium Chloride 100 ml @ 50 mls/hr UNSCH PRN IV 06/12/17 09:45 (Mag-Ox) 800 mg UNSCH PRN PO 06/12/17 09:45 Magnesium Sulfate 2 gm/Sodium Chloride 100 ml @ 50 mls/hr UNSCH PRN IV 06/12/17 09:45 (K-Phos) 2,000 mg Q4H PRN PO 06/12/17 09:45 Sodium Phosphate 30 mmol/Sodium Chloride 250 ml @ 42 mls/hr UNSCH PRN IV 06/12/17 09:45 (K-Phos) 2,000 mg UNSCH PRN PO/TUBE 06/12/17 09:45 Potassium Phosphate 30 mmol/ Sodium Chloride 260 ml @ 42 mls/hr UNSCH PRN IV 06/12/17 09:45 (D50w (Vial) Inj) 50 ml UNSCH PRN IV PUSH 06/12/17 09:45 (Glucagon Inj) 1 mg UNSCH PRN OTHER 06/12/17 13:00 Levofloxacin/ Dextrose 150 ml @ 100 mls/hr Q24H IV 06/12/17 14:00 06/14/17 14:12 (Cardizem Cd) 240 mg DAILY PO 06/13/17 09:00 06/14/17 08:34 (SoluMEDROL INJ) 60 mg Q6HR IV PUSH 06/12/17 13:30 06/14/17 11:44 (NovoLOG SUPPLEMENTAL SCALE) 1 ACHS AND 3AM SQ 06/13/17 12:00 06/14/17 11:55 ([place] 7.5-325 Mg) 1 tab Q4H PRN PO 06/13/17 09:45 06/14/17 11:44 (Morphine Inj) 4 mg Q3H PRN IV PUSH 06/13/17 09:45 (Morphine Inj) 2 mg Q3H PRN IV PUSH 06/13/17 09:45 06/14/17 14:18 (KCl) 10 meq Q12HR PO 06/13/17 21:00 06/14/17 08:34 (Levemir Inj) 25 units Q12HR SQ 06/14/17 21:00 A/P Assessment and Plan ASSESSMENT: 1. Non-STEMI. 2. Atrial fibrillation with RVR. 3. CHF. 4. Cor pulmonale. 5. Fluid overload. 6. Cellulitis of the legs. 7. Hyperkalemia. 8. Hyponatremia. 9. Severe hyperglycemia. 10. Smoker. 11. Recent cellulitis of the abdomen and legs at [facility] and discharged last week. 12. COPD PLAN: 1. Cardizem drip and likely ablation tomorrow per Dr North 2. Lovenox 120 mg subcutaneously b.i.d. 3. Lasix 40 IV b.i.d. 4. Haldol p.r.n. 5. Solu-Medrol 80 mg IV q.6 hours. 6. Nitroglycerin 2% ointment. 7. Protonix IV for GI prophylaxis. 8. DVT prophylaxis- on Lovenox b.i.d. 9. Telemetry. 10. Physical therapy. 11. continue ICU care. 12. Consult pulmonary. 13. Consult to patient care provider. Jozef Gilliland MD Jun 14, 2017 15:00
--- NOTE | 2017-06-14 15:24 | HHI.PR ---
Subjective Remarks 57 YOWM with COPD.JEFF,A.Flutter, Nicotine use Breathing better Did't use CPAP Seen by , clinically improving Objective Vital Signs Vital Signs Date Time Temp Pulse Resp B/P (MAP) Pulse Ox O2 Delivery O2 Flow Rate FiO2 06/14/17 15:05 120 06/14/17 15:04 98.0 120 20 121/80 (94) 92 06/14/17 14:46 18 06/14/17 13:20 122 06/14/17 11:03 83 06/14/17 11:02 98.8 93 20 127/69 (88) 93 06/14/17 09:43 133 06/14/17 09:40 18 06/14/17 08:25 20 06/14/17 07:52 95 Nasal Cannula 6.00 06/14/17 07:24 98.5 80 20 136/72 (93) 97 06/14/17 07:22 83 06/14/17 07:17 97 Nasal Cannula 6.00 06/14/17 06:27 86 129/81 06/14/17 04:45 93 06/14/17 03:00 97.7 111 20 135/74 (94) 95 06/14/17 00:19 95 21 06/14/17 00:00 87 06/14/17 00:00 97.8 96 20 125/73 (90) 97 06/13/17 20:46 95 Nasal Cannula 6.00 06/13/17 20:00 97.9 82 20 131/74 (93) 95 06/13/17 19:00 95 06/13/17 19:00 94 Nasal Cannula 6.00 I/O 06/13/17 06/13/17 06/13/17 06/14/17 06/14/17 06/14/17 07:00 15:00 23:00 07:00 15:00 23:00 Intake Total 1361 ml 150 ml 720 ml 1155 ml 100 ml Output Total 1710 ml 1775 ml 2500 ml Balance -349 ml 150 ml -1055 ml -1345 ml 100 ml Intake Oral 1000 ml 720 ml 960 ml IV Total 361 ml 150 ml 195 ml 100 ml Output Urine Total 1710 ml 1775 ml 2500 ml # Bowel Movements 2 0 0 Result Diagram: 06/14/17 0407 06/13/17 0342 Objective Remarks GENERAL: Obese WM, mild sob SKIN: Warm and dry. HEAD: Normocephalic. EYES: No scleral icterus. No injection or drainage. NECK: Supple, trachea midline. No JVD or lymphadenopathy. CARDIOVASCULAR: Regular rate and rhythm without murmurs, gallops, or rubs. RESPIRATORY: Breath sounds equal bilaterally. No accessory muscle use. GASTROINTESTINAL: Abdomen soft, non-tender, nondistended. MUSCULOSKELETAL: No cyanosis, ++ edema. BACK: Nontender without obvious deformity. No CVA tenderness. A/P Assessment and Plan Hypercapnoic RF COPD Exac JEFF A.Flutter Hyperglycemia Nicotine use PLAN: IV Solumedrol Aerosol nebs Cont ABX Cardiazem for rate controll 02 to keep sat 88-92% Ankit Morel MD Jun 14, 2017 15:24
[2017-06-14 16:07] LABS: CALCIUM 9.2 MG/DL (8.5-10.1); CREATININE 1.07 MG/DL (0.60-1.30)
[2017-06-14] MEDS ORDERED: INSULIN DETEMIR 100 UNITS/ML VIAL SQ SCH (21:00)
[2017-06-15] VITALS (11 sets, daily range): BP systolic 118–142; BP diastolic 56–85; PULSE 74–102; RESP 20–21; TEMP 97.7–98.6; O2SAT 91–97
[2017-06-15] MEDS: RESP: ALBUTEROL 2.5 MG/IPRATROPIUM 0.5 MG NEB (SCH) NEB ×7 (00:02→22:56)
[2017-06-15] MEDS: methylPREDNISolone SOD SUCC 125 MG/2 ML VIAL IV PUSH SCH ×2 (00:31→05:52)
[2017-06-15] MEDS: NITROGLYCERIN 2% OINT 1 GM PACKET TOPICAL SCH ×2 (00:31→05:52)
[2017-06-15] MEDS: INSULIN ASPART SUPPLEMENTAL SCALE SQ SCH ×5 (03:00→20:56)
[2017-06-15] MEDS: DILTIAZEM INJ 125 MG in SODIUM CHLORIDE 0.9% INJ 100 ML IV PRN ×3 (03:00→12:39)
[2017-06-15] MEDS: CHLORHEXIDINE GLUCONATE 2 % 1 PACK (2 CLOTHS) TOP SCH (04:00)
[2017-06-15 04:18] LABS: HEMATOCRIT 33.1 % (39.0-51.0); HEMOGLOBIN 9.4 GM/DL (13.0-17.0); MEAN CELL VOLUME 69.1 FL (80.0-100.0); MEAN CORPUSCULAR HEMOGLOBIN 19.6 PG (27.0-34.0); MEAN PLATELET VOLUME 8.1 FL (7.0-11.0); PLATELET COUNT 204 TH/MM3 (150-450); RED CELL DISTRIBUTION WIDTH 26.4 % (11.6-17.2); WHITE BLOOD COUNT 5.9 TH/MM3 (4.0-11.0)
[2017-06-15 04:35] LABS: BICARBONATE 34.9 MEQ/L (21.0-32.0); CALCIUM 8.9 MG/DL (8.5-10.1); CREATININE 0.79 MG/DL (0.60-1.30)
[2017-06-15 04:38] LABS: MEAN CORPUSCULAR HGB CONC 28.3 % (32.0-36.0)
[2017-06-15] MEDS: ACETAMINOPHEN/HYDROcodone 325 MG/7.5 MG TAB PO PRN ×5 (04:52→20:54)
--- NOTE | 2017-06-15 06:52 | RADRPT ---
EXAM DATE/TIME: 06/15/2017 05:16 [place] COMPARISON: CHEST SINGLE AP, June 13, 2017, 4:39. INDICATIONS : Evaluate for pneumonia MEDICAL HISTORY : Chronic obstructive pulmonary disease. Congestive heart failure. Hypertension. Diabetes SURGICAL HISTORY : None. ENCOUNTER: Subsequent ACUITY: 1 week PAIN SCORE: 7/10 LOCATION: Bilateral chest FINDINGS: Slightly improved aeration of the left lower lung with decreasing but persistent infiltrates. There is persistent blunting of the right costophrenic angle. The heart is stable in size. CONCLUSION: Decreasing left lower lung infiltrates. Probable persistent small right pleural effusion. Jose Loaiza MD on June 15, 2017 at 6:51 Board Certified Radiologist. This report was verified electronically.
--- NOTE | 2017-06-15 07:50 | HHI.CCPN ---
Subjective Remarks/Hospital Course This is a 57-year-old male. Date of admission 06/11/2017. Date of consultation 06/12/2017. Past medical history includes seizure disorder, THC use , coronary artery disease 30% LAD 2015 heart catheterization, hypertension, dyslipidemia, oxygen dependent COPD, 2 L nasal cannula, peripheral neuropathy, gastroesophageal reflux disease and uncontrolled diabetes mellitus. According to records, patient was hospitalized at [facility] and was discharged within the past week. He states he has been compliant with his medications. Noted does have history of medical noncompliance. He presented to [facility] initially with chief complaint of "my legs are swollen". He is noted to have an elevated troponin of 0.11 and was admitted under Dr. Gilliland. Patient received albuterol/Ultram aerosols and furosemide 1. Patient placed on high flow nasal cannula. He patient refused CPAP due to claustrophobia. ABG revealed CO2 retention Chest x-ray revealed hyperinflated lungs. Troponin was 0.11. EKG is currently pending. Troponin downtrending to current the 0.06. Was placed on Nitropaste 2 inches every 6 hours and enoxaparin 120 mg twice daily. Tabular Typist been counseled as well. Denies chest pain, shortness of breath, abdominal pain. Main complaint is painful swelling in his legs. He states he occasionally smokes THC for pain management as tramadol does not provide adequate pain relief at home 06/13: Resting comfortably in chair on high flow nasal cannula 20 L at 50%. Troponin trended downward from 0.11 which is 0.05. Denies chest pain. Tabular Typist placed the patient on diltiazem CD 240 mg p.o. daily with the diltiazem drip for additional rate control. Negative CT pulmonary angiogram for PE. Negative Doppler lower extremities for thrombus. Iron deficiency anemia workup in progress. 3: Currently on nasal cannula 6 L. Diltiazem currently at 5 mg an hour. Plan for ablation tomorrow per cardiology. Requesting to transfer room but stated he needs to be off diltiazem gtt prior to lateral transfer. SUBJECTIVE 3/: Continues to be a nasal cannula currently at 4 L. Diltiazem drip currently at 10 mg an hour. Plan for ablation tentatively today per cardiology' s note from yesterday. Elevated blood sugars noted while on steroids. Increasing diltiazem CD from 240 mg daily to 300 mg p.o. daily Objective Vital Signs Date Time Temp Pulse Resp B/P (MAP) Pulse Ox O2 Delivery O2 Flow Rate FiO2 06/15/17 07:32 97 Nasal Cannula 4.00 06/15/17 07:29 97.7 102 20 140/56 (84) 06/14/17 00:19 21 Intake and Output 06/15/17 06/15/17 06/16/17 08:00 16:00 00:00 Intake Total 1118 ml Output Total 2525 ml Balance -1407 ml Result Diagram: 06/15/17 0343 06/15/17 0343 Other Results Microbiology Date/Time Source Procedure Growth Status 06/11/17 19:30 Blood Peripheral Aerobic Blood Culture - Preliminary NO GROWTH IN 3 DAYS Resulted 06/11/17 19:30 Blood Peripheral Anaerobic Blood Culture - Preliminary NO GROWTH IN 3 DAYS Resulted 06/12/17 10:20 Nasal Aspirate Influenza Types A,B Antigen (JOLLY) - Final NEGATIVE FOR FLU A AND B ANTIGEN.... Complete 06/12/17 10:36 Urine Catheterized Urine Legionella Antigen - Final PRESUMPTIVE NEGATIVE FOR LEGIONELLA P... Complete 06/12/17 10:36 Urine Catheterized Urine Streptococcus pneumoniae Antigen (M - Final PRESUMPTIVE NEGATIVE FOR STREPTOCOCCU... Complete Imaging Last Impressions Chest X-Ray 06/15/17 0600 Signed Impressions: Service Date/Time: Thursday, June 15, 2017 05:16 - CONCLUSION: Decreasing left lower lung infiltrates. Probable persistent small right pleural effusion. Jose Loaiza MD Lower Extremity Ultrasound 06/12/17 0000 Signed Impressions: Service Date/Time: Monday, June 12, 2017 14:23 - CONCLUSION: No DVT in either lower extremity. Jose L Rodríguez MD CT Angiography 06/12/17 0000 Signed Impressions: Service Date/Time: Monday, June 12, 2017 11:42 - CONCLUSION: 1. No evidence of acute pulmonary embolism. 2. Bibasilar airway disease with bilateral subsegmental air space disease. 3. Emphysematous chronic obstructive pulmonary disease. 4. Cardiomegaly. 5. Ascites identified in the abdomen. Franklin Ibanez MD Objective Remarks GENERAL: 57-year-old male currently resting in chair in no acute distress on 6 L nasal cannula SKIN: Warm and dry. Chronic venous stasis bilateral lower extremities HEAD: Atraumatic. Normocephalic. EYES: Pupils equal and round around 3 mm bilaterally and reactive. No scleral icterus. No injection or drainage. ENT: No nasal bleeding or discharge. Mucous membranes pink and moist. NECK: Trachea midline. No JVD. CARDIOVASCULAR: Tachycardic, IR. S1, S2 no strip without murmurs, clicks, gallops or rubs RESPIRATORY: Diminished breath sounds throughout. No wheezing is appreciated. I do not appreciate any rales on my examination GASTROINTESTINAL: Abdomen non-tender, protuberant. Hypoactive bowel sounds appreciated MUSCULOSKELETAL: Extremities with 1-2+ bilateral lower extremity edema. No obvious deformities. NEUROLOGICAL: Awake and alert. No obvious cranial nerve deficits. Motor grossly within normal limits. Five out of 5 muscle strength in the arms and legs. Normal speech. Urinary Catheter: No Assessment to: Continue Vascular Central Line Catheter: No Assessment to: Continue A/P Assessment and Plan Neuro/Psych: Seizure disorder NOS Chronic pain syndrome History of THC use Depression Acetaminophen 650 mg p.o. every 6 hours as needed fever Hydrocodone/acetaminophen 7.5/325 1 tablet every 4 hours as needed pain 1-5 Morphine sulfate 2 mg IV every 3 hours as needed pain 6-10 with 3 mg IV every 3 years. For breakthrough pain Continue pregabalin 50 mg once a daily and bupropion 100 mg once a daily/home medications for depression Patient is on tramadol 50 mg every 4 hours as needed pain at home CV: Elevated troponin Nonobstructive coronary disease History of hypertension Dyslipidemia Atrial fibrillation with rapid ventricular response Currently on enoxaparin 120 mg subcu twice daily Diltiazem drip at 10 mg an hour for rate control Started on diltiazem CD 240 mg p.o. daily. Increase to 300 mg p.o. daily 3/2 Troponin 0.11 decrease to 0.06 to 0.05. Cardiology/Dr. Chaney has seen and evaluated the patient and recommended medical management Evaluated by Dr. North. No from yesterday documented possible ablation Sunday question aryan 2D echocardiogram august 2016 revealed EF 55-60%. No regional wall motion abnormality. On furosemide 40 iv twice daily Patient is on hydralazine 25 mg 3 times daily and isosorbide mononitrate 30 mg daily at home. Resume Patient is on spironolactone 100 mg twice daily home. This has been held while on furosemide Patient has an aspirin 81 mg daily. This was held by cardiology secondary to bleeding risk while on enoxaparin Resp: Acute hypoxemic respiratory failure Chronic respiratory insufficiency/COPD 2 L oxygen dependent Ongoing tobacco abuse Nasal cannula 4 L titrated to maintain saturations greater than or equal to 88 percent Incentive spirometry while awake Albuterol/ipratropium aerosols every 4 hours with albuterol aerosols every 2 hours. Dyspnea Resumed fluticasone/salmeterol 250/50 1 inhalation twice daily Methylprednisolone succinate 60 mg IV every 8 hours Patient is on albuterol/ipratropium aerosols every 4 hours as needed home along with albuterol aerosols every 4 hours as needed dyspnea Negative CT pulmonary angiogram for central PE. Emphysematous changes. Possible diffuse infiltrative process Tobacco cessation self-education booklet will be provided GI: Gastroesophageal reflux disease Chronic constipation Hypoalbuminemia Patient is currently on diabetic diet.. Pantoprazole 40 mg daily for GI prophylaxis. Patient is on omeprazole 40 mg daily at home Docusate sodium/senna 1 tablet twice daily for bowel regimen Patient is on senna as an outpatient : Mcclendon catheter if indicated for accurate I's and O's in a critically ill patient Endo: Diabetes mellitus Sliding scale insulin with Novulog with Accu-Cheks to maintain euglycemia/high regimen before meals/at bedtime. 90 units sliding scale insulin past 24 hours Holding insulin glargine 80 units subcu twice daily. Start on insulin detemir 40 units subcu twice daily. Renal: Creatinine currently close to normal limits Monitor urine output Accurate I's and O's Recheck BMP in a.m. Heme: Microcytic hypochromic anemia Patient has not had an EGD or colonoscopy done Does not meet transfusion threshold at the time We will check Hemoccult stool and iron studies 1 while on enoxaparin ID: Currently levofloxacin and 1 dose vancomycin for possible community acquired pneumonia/sepsis 06/12 blood cultures 2, sputum and influenza no growth to date/negative. Sputum not performed. MSK: Elevated BMI Weight loss encouraged PT evaluate and treat FEN: Hyponatremia Replace electrolytes as clinically indicated Access -Utilize peripheral IV. Central and if indicated Prophylaxis -GI -pantoprazole -DVT -SCD/enoxaparen Level 2 follow-up Emiliano Portillo MD Jun 15, 2017 07:49
[2017-06-15] MEDS ORDERED: NITROGLYCERIN 2% OINT 1 GM PACKET TOPICAL PRN (08:30)
[2017-06-15] MEDS: FUROSEMIDE 40 MG/4 ML VIAL IV PUSH SCH ×2 (08:49→18:07)
[2017-06-15] MEDS: SODIUM CHLORIDE 0.9% FLUSH 10 ML FLUSH IV FLUSH SCH ×2 (08:49→20:53)
[2017-06-15] MEDS: PREGABALIN 25 MG CAP PO SCH (08:49)
[2017-06-15] MEDS: BUDESONIDE-FORMOTEROL 160/4.5 MCG INHALER INH SCH ×2 (08:49→20:53)
[2017-06-15] MEDS: POTASSIUM CHLORIDE 10 MEQ CONTROLLED RELEASE TAB PO SCH ×2 (08:50→20:55)
[2017-06-15] MEDS: buPROPion HCL 100 MG TAB PO SCH (08:50)
[2017-06-15] MEDS: DOCUSATE SODIUM 50 MG/SENNA 8.6 MG TAB PO SCH ×2 (08:50→20:55)
[2017-06-15] MEDS: hydrALAZINE HCL 25 MG TAB PO SCH ×3 (08:50→18:07)
[2017-06-15] MEDS: ISOSORBIDE MONONITRATE 30 MG CR TAB (IMDUR) PO SCH (08:50)
[2017-06-15] MEDS: PANTOPRAZOLE SOD 40 MG DELAYED RELEASE TAB PO SCH (08:50)
[2017-06-15] MEDS: INSULIN DETEMIR 100 UNITS/ML VIAL SQ SCH ×2 (08:51→20:56)
[2017-06-15] MEDS ORDERED: DILTIAZEM-CD 300 MG CAP ER PO SCH (09:30)
[2017-06-15] MEDS: MORPHINE SULFATE 2 MG/ML INJ IV PUSH PRN ×4 (09:59→23:33)
[2017-06-15] MEDS: ENOXAPARIN SODIUM 120 MG/0.8 ML SYRINGE SQ SCH ×2 (10:00→21:03)
--- NOTE | 2017-06-15 10:13 | HHI.FPPN ---
Subjective Remarks C/O SOB C/O COUGH C//O WEAKNESS D/W RN IN ICU Objective Vitals Vital Signs Date Time Temp Pulse Resp B/P (MAP) Pulse Ox O2 Delivery O2 Flow Rate FiO2 06/15/17 09:58 20 06/15/17 09:05 20 06/15/17 08:05 90 06/15/17 07:32 97 Nasal Cannula 4.00 06/15/17 07:29 97.7 102 20 140/56 (84) 93 06/15/17 07:28 102 06/15/17 07:25 93 Nasal Cannula 4.00 06/15/17 03:00 98.4 100 20 142/85 (104) 92 06/15/17 03:00 100 06/15/17 03:00 100 142/85 06/14/17 23:00 98.6 86 22 128/67 (87) 93 06/14/17 23:00 86 06/14/17 22:40 20 06/14/17 20:09 94 Nasal Cannula 3.00 06/14/17 20:00 93 Nasal Cannula 4.00 06/14/17 19:00 98.1 105 20 122/69 (86) 93 06/14/17 19:00 105 06/14/17 15:05 120 06/14/17 15:04 98.0 120 20 121/80 (94) 92 06/14/17 13:20 122 06/14/17 11:03 83 06/14/17 11:02 98.8 93 20 127/69 (88) 93 I/O 06/14/17 06/14/17 06/14/17 06/15/17 06/15/17 06/15/17 07:00 15:00 23:00 07:00 15:00 23:00 Intake Total 1155 ml 100 ml 1550 ml 1118 ml Output Total 2500 ml 2570 ml 2525 ml Balance -1345 ml 100 ml -1020 ml -1407 ml Intake Oral 960 ml 1400 ml 960 ml IV Total 195 ml 100 ml 150 ml 158 ml Output Urine Total 2500 ml 2570 ml 2525 ml # Bowel Movements 0 0 0 Result Diagram: 06/15/17 0343 06/15/17 0343 Objective Remarks GENERAL: SKIN: Warm and dry. HEAD: Atraumatic. Normocephalic. EYES: Pupils equal and round. No scleral icterus. No injection or drainage. ENT: No nasal bleeding or discharge. Mucous membranes pink and moist. NECK: Trachea midline. No JVD. CARDIOVASCULAR: IRR IRR, RESPIRATORY: B Rales and ronchi, tachypneic GASTROINTESTINAL: Abdomen soft, non-tender, nondistended. Hepatic and splenic margins not palpable. MUSCULOSKELETAL: 3 + edema. No obvious deformities. NEUROLOGICAL: Awake and alert. No obvious cranial nerve deficits. Motor grossly within normal limits. Five out of 5 muscle strength in the arms and legs. Normal speech. PSYCHIATRIC: Appropriate mood and affect; insight and judgment normal. Medications and IVs Current Medications Medications (Trade) Dose Ordered Sig/Whit Route Start Time Stop Time Status Last Admin (Ambien) 5 mg HS PRN PO 06/11/17 21:00 (Narcan Inj) 0.4 mg UNSCH PRN IV PUSH 06/11/17 21:00 (Milk Of Magnesia Liq) 30 ml Q12H PRN PO 06/11/17 21:00 (Ativan) 0.5 mg Q8H PRN PO 06/11/17 21:00 (Catapres) 0.1 mg Q6H PRN PO 06/11/17 21:00 (Lasix Inj) 40 mg BID@,18 IV PUSH 06/12/17 09:00 06/15/17 08:49 (Lovenox Inj) 120 mg Q12H SQ 06/11/17 22:00 06/14/17 22:00 Diltiazem HCl 125 mg/Sodium Chloride 125 ml @ 5 mls/hr TITRATE PRN IV 06/11/17 21:15 06/15/17 12:39 (Duoneb Neb) 1 ampule Q4HR NEB NEB 06/12/17 12:00 06/15/17 12:19 (Albuterol Neb) 2.5 mg Q2HR NEB PRN NEB 06/12/17 09:45 06/12/17 10:25 (Wellbutrin) 100 mg DAILY PO 06/13/17 09:00 06/15/17 08:50 (Apresoline) 25 mg TID PO 06/12/17 13:00 06/15/17 08:50 (Imdur) 30 mg DAILY PO 06/13/17 09:00 06/15/17 08:50 (Lyrica) 50 mg DAILY PO 06/13/17 09:00 06/15/17 08:49 (Symbicort 160-4.5 Mcg Inh) 2 puff BID INH 06/12/17 21:00 06/15/17 08:49 (NS Flush) 2 ml UNSCH PRN IV FLUSH 06/12/17 13:00 (NS Flush) 2 ml BID IV FLUSH 06/12/17 21:00 06/15/17 08:49 (Tylenol) 650 mg Q6H PRN PO 06/12/17 13:00 (Protonix) 40 mg DAILY PO 06/13/17 09:00 06/15/17 08:50 (Zofran Inj) 4 mg Q6H PRN IV PUSH 06/12/17 13:00 Miscellaneous Information 1 Q361D XX 06/12/17 09:45 (Chlorhexidine 2% Cloth) 3 pack Taper DAILY@04 TOP 06/13/17 04:00 06/09/18 03:59 06/15/17 04:00 (Chlorhexidine 2% Cloth) 3 pack UNSCH PRN TOP 06/12/17 09:45 (Amira-Colace) 1 tab BID PO 06/12/17 21:00 06/15/17 08:50 (Milk Of Magnesia Liq) 30 ml Q12H PRN PO 06/12/17 13:00 (Senokot) 17.2 mg Q12H PRN PO 06/12/17 13:15 (Dulcolax Supp) 10 mg DAILY PRN RECTAL 06/12/17 09:45 (Lactulose Liq) 30 ml DAILY PRN PO 06/12/17 09:45 Potassium Chloride 100 ml @ 50 mls/hr Q2H PRN IV 06/12/17 09:45 Potassium Chloride 100 ml @ 50 mls/hr Q2H PRN IV 06/12/17 09:45 (K-Lyte Cl Eff) 50 meq UNSCH PRN PO 06/12/17 09:45 Potassium Chloride 100 ml @ 25 mls/hr UNSCH PRN IV 06/12/17 09:45 Potassium Chloride 100 ml @ 50 mls/hr Q2H PRN IV 06/12/17 09:45 Magnesium Sulfate 4 gm/Sodium Chloride 100 ml @ 50 mls/hr UNSCH PRN IV 06/12/17 09:45 (Mag-Ox) 800 mg UNSCH PRN PO 06/12/17 09:45 Magnesium Sulfate 2 gm/Sodium Chloride 100 ml @ 50 mls/hr UNSCH PRN IV 06/12/17 09:45 (K-Phos) 2,000 mg Q4H PRN PO 06/12/17 09:45 Sodium Phosphate 30 mmol/Sodium Chloride 250 ml @ 42 mls/hr UNSCH PRN IV 06/12/17 09:45 (K-Phos) 2,000 mg UNSCH PRN PO/TUBE 06/12/17 09:45 Potassium Phosphate 30 mmol/ Sodium Chloride 260 ml @ 42 mls/hr UNSCH PRN IV 06/12/17 09:45 (D50w (Vial) Inj) 50 ml UNSCH PRN IV PUSH 06/12/17 09:45 (Glucagon Inj) 1 mg UNSCH PRN OTHER 06/12/17 13:00 Levofloxacin/ Dextrose 150 ml @ 100 mls/hr Q24H IV 06/12/17 14:00 06/14/17 14:12 (NovoLOG SUPPLEMENTAL SCALE) 1 ACHS AND 3AM SQ 06/13/17 12:00 06/15/17 11:57 ([place] 7.5-325 Mg) 1 tab Q4H PRN PO 06/13/17 09:45 06/15/17 11:51 (Morphine Inj) 4 mg Q3H PRN IV PUSH 06/13/17 09:45 (Morphine Inj) 2 mg Q3H PRN IV PUSH 06/13/17 09:45 06/15/17 09:59 (KCl) 10 meq Q12HR PO 06/13/17 21:00 06/15/17 08:50 (Levemir Inj) 40 units Q12HR SQ 06/15/17 09:00 06/15/17 08:51 (Nitroglycerin 2% Oint) 1 inch Q6HR PRN TOPICAL 06/15/17 08:30 (Cardizem Cd) 300 mg DAILY PO 06/15/17 09:30 06/15/17 09:30 (SoluMEDROL INJ) 60 mg Q8HR IV PUSH 06/15/17 14:00 A/P Assessment and Plan ASSESSMENT: 1. Non-STEMI. 2. Atrial fibrillation with RVR. 3. CHF. 4. Cor pulmonale. 5. Fluid overload. 6. Cellulitis of the legs. 7. Hyperkalemia. 8. Hyponatremia. 9. Severe hyperglycemia. 10. Smoker. 11. Recent cellulitis of the abdomen and legs at [facility] and discharged last week. 12. COPD PLAN: 1. Cardizem drip AND PO CARDIZEM and likely ablation per Dr North 2. Lovenox 120 mg subcutaneously b.i.d. 3. Lasix 40 IV b.i.d. 4. Haldol p.r.n. 5. Solu-Medrol 80 mg IV q.6 hours. 6. Nitroglycerin 2% ointment. 7. Protonix IV for GI prophylaxis. 8. DVT prophylaxis- on Lovenox b.i.d. 9. Telemetry. 10. Physical therapy. 11. continue ICU care. 12. Consult pulmonary. 13. Consult to director of food and nutrition services. Jozef Gilliland MD Jun 15, 2017 10:13
[2017-06-15] MEDS ORDERED: methylPREDNISolone SOD SUCC 125 MG/2 ML VIAL IV PUSH SCH (14:00)
[2017-06-15] MEDS: LEVOFLOXACIN 750 MG PREMIX INJ 150 ML IV SCH (14:23)
--- NOTE | 2017-06-15 19:42 | HHI.PR ---
Subjective Remarks 57 YOWM with COPD.JEFF,A.Flutter, Nicotine use Did't use CPAP Up in chair Breathing much better Objective Vital Signs Vital Signs Date Time Temp Pulse Resp B/P (MAP) Pulse Ox O2 Delivery O2 Flow Rate FiO2 06/15/17 19:34 91 Nasal Cannula 3.00 06/15/17 18:38 20 06/15/17 17:29 20 06/15/17 15:05 98.6 102 20 118/67 (84) 93 06/15/17 15:04 102 06/15/17 12:39 102 06/15/17 11:10 98.3 74 20 139/77 (97) 93 06/15/17 11:09 90 06/15/17 09:58 20 06/15/17 08:05 90 06/15/17 07:32 97 Nasal Cannula 4.00 06/15/17 07:29 97.7 102 20 140/56 (84) 93 06/15/17 07:28 102 06/15/17 07:25 93 Nasal Cannula 4.00 06/15/17 03:00 98.4 100 20 142/85 (104) 92 06/15/17 03:00 100 06/15/17 03:00 100 142/85 06/14/17 23:00 98.6 86 22 128/67 (87) 93 06/14/17 23:00 86 06/14/17 20:09 94 Nasal Cannula 3.00 06/14/17 20:00 93 Nasal Cannula 4.00 I/O 06/14/17 06/14/17 06/14/17 06/15/17 06/15/17 06/15/17 07:00 15:00 23:00 07:00 15:00 23:00 Intake Total 1155 ml 100 ml 1550 ml 1118 ml 100 ml 1700 ml Output Total 2500 ml 2570 ml 2525 ml 2120 ml Balance -1345 ml 100 ml -1020 ml -1407 ml 100 ml -420 ml Intake Oral 960 ml 1400 ml 960 ml 1700 ml IV Total 195 ml 100 ml 150 ml 158 ml 100 ml Output Urine Total 2500 ml 2570 ml 2525 ml 2120 ml # Bowel Movements 0 0 0 1 Result Diagram: 06/15/17 0343 06/15/17 0343 Objective Remarks GENERAL: Obese WM, mild sob SKIN: Warm and dry. HEAD: Normocephalic. EYES: No scleral icterus. No injection or drainage. NECK: Supple, trachea midline. No JVD or lymphadenopathy. CARDIOVASCULAR: Regular rate and rhythm without murmurs, gallops, or rubs. RESPIRATORY: Breath sounds equal bilaterally. No accessory muscle use. GASTROINTESTINAL: Abdomen soft, non-tender, nondistended. MUSCULOSKELETAL: No cyanosis, ++ edema. BACK: Nontender without obvious deformity. No CVA tenderness. A/P Assessment and Plan Hypercapnoic RF COPD Exac JEFF A.Flutter Hyperglycemia Nicotine use PLAN: DC Solumedrol Aerosol nebs Cont ABX Cardiazem for rate controll 02 to keep sat 88-92% PO Steroids Ankit Morel MD Jun 15, 2017 19:42
--- NOTE | 2017-06-15 19:55 | HHI.PR ---
Subjective Remarks Tired Objective Vital Signs Date Time Temp Pulse Resp B/P (MAP) Pulse Ox O2 Delivery O2 Flow Rate FiO2 06/15/17 19:34 91 Nasal Cannula 3.00 06/15/17 18:38 20 06/15/17 17:29 20 06/15/17 15:05 98.6 102 20 118/67 (84) 93 06/15/17 15:04 102 06/15/17 12:39 102 06/15/17 11:10 98.3 74 20 139/77 (97) 93 06/15/17 11:09 90 06/15/17 09:58 20 06/15/17 08:05 90 06/15/17 07:32 97 Nasal Cannula 4.00 06/15/17 07:29 97.7 102 20 140/56 (84) 93 06/15/17 07:28 102 06/15/17 07:25 93 Nasal Cannula 4.00 06/15/17 03:00 98.4 100 20 142/85 (104) 92 06/15/17 03:00 100 06/15/17 03:00 100 142/85 06/14/17 23:00 98.6 86 22 128/67 (87) 93 06/14/17 23:00 86 06/14/17 20:09 94 Nasal Cannula 3.00 06/14/17 20:00 93 Nasal Cannula 4.00 I/O 06/14/17 06/14/17 06/14/17 06/15/17 06/15/17 06/15/17 07:00 15:00 23:00 07:00 15:00 23:00 Intake Total 1155 ml 100 ml 1550 ml 1118 ml 100 ml 1700 ml Output Total 2500 ml 2570 ml 2525 ml 2120 ml Balance -1345 ml 100 ml -1020 ml -1407 ml 100 ml -420 ml Intake Oral 960 ml 1400 ml 960 ml 1700 ml IV Total 195 ml 100 ml 150 ml 158 ml 100 ml Output Urine Total 2500 ml 2570 ml 2525 ml 2120 ml # Bowel Movements 0 0 0 1 Result Diagram: 06/15/17 0343 06/15/17 0343 Imaging Alert, fully oriented Lungs: ventilated Heart: S1, S2 irregular Abdomen: obese, no mass Ext: no edema Last Impressions Chest X-Ray 3/2/18 0600 Signed Impressions: Service Date/Time: Thursday, June 15, 2017 05:16 - CONCLUSION: Decreasing left lower lung infiltrates. Probable persistent small right pleural effusion. Jose Loaiza MD Lower Extremity Ultrasound 06/12/17 0000 Signed Impressions: Service Date/Time: Monday, June 12, 2017 14:23 - CONCLUSION: No DVT in either lower extremity. Jose L Rodríguez MD CT Angiography 06/12/17 0000 Signed Impressions: Service Date/Time: Monday, June 12, 2017 11:42 - CONCLUSION: 1. No evidence of acute pulmonary embolism. 2. Bibasilar airway disease with bilateral subsegmental air space disease. 3. Emphysematous chronic obstructive pulmonary disease. 4. Cardiomegaly. 5. Ascites identified in the abdomen. Franklin Ibanez MD Current Medications Medications (Trade) Dose Ordered Sig/Whit Route Start Time Stop Time Status Last Admin (Ambien) 5 mg HS PRN PO 06/11/17 21:00 (Narcan Inj) 0.4 mg UNSCH PRN IV PUSH 06/11/17 21:00 (Milk Of Magnesia Liq) 30 ml Q12H PRN PO 06/11/17 21:00 (Ativan) 0.5 mg Q8H PRN PO 06/11/17 21:00 (Catapres) 0.1 mg Q6H PRN PO 06/11/17 21:00 (Lasix Inj) 40 mg BID@,18 IV PUSH 06/12/17 09:00 06/15/17 18:07 (Lovenox Inj) 120 mg Q12H SQ 06/11/17 22:00 06/15/17 10:00 Diltiazem HCl 125 mg/Sodium Chloride 125 ml @ 5 mls/hr TITRATE PRN IV 06/11/17 21:15 06/15/17 12:39 (Duoneb Neb) 1 ampule Q4HR NEB NEB 06/12/17 12:00 06/15/17 19:32 (Albuterol Neb) 2.5 mg Q2HR NEB PRN NEB 06/12/17 09:45 06/12/17 10:25 (Wellbutrin) 100 mg DAILY PO 06/13/17 09:00 06/15/17 08:50 (Apresoline) 25 mg TID PO 06/12/17 13:00 06/15/17 18:07 (Imdur) 30 mg DAILY PO 06/13/17 09:00 06/15/17 08:50 (Lyrica) 50 mg DAILY PO 06/13/17 09:00 06/15/17 08:49 (Symbicort 160-4.5 Mcg Inh) 2 puff BID INH 06/12/17 21:00 06/15/17 08:49 (NS Flush) 2 ml UNSCH PRN IV FLUSH 06/12/17 13:00 (NS Flush) 2 ml BID IV FLUSH 06/12/17 21:00 06/15/17 08:49 (Tylenol) 650 mg Q6H PRN PO 06/12/17 13:00 (Protonix) 40 mg DAILY PO 06/13/17 09:00 06/15/17 08:50 (Zofran Inj) 4 mg Q6H PRN IV PUSH 06/12/17 13:00 Miscellaneous Information 1 Q361D XX 06/12/17 09:45 (Chlorhexidine 2% Cloth) 3 pack Taper DAILY@04 TOP 06/13/17 04:00 06/09/18 03:59 06/15/17 04:00 (Chlorhexidine 2% Cloth) 3 pack UNSCH PRN TOP 06/12/17 09:45 (Amira-Colace) 1 tab BID PO 06/12/17 21:00 06/15/17 08:50 (Milk Of Magnesia Liq) 30 ml Q12H PRN PO 06/12/17 13:00 (Senokot) 17.2 mg Q12H PRN PO 06/12/17 13:15 (Dulcolax Supp) 10 mg DAILY PRN RECTAL 06/12/17 09:45 (Lactulose Liq) 30 ml DAILY PRN PO 06/12/17 09:45 Potassium Chloride 100 ml @ 50 mls/hr Q2H PRN IV 06/12/17 09:45 Potassium Chloride 100 ml @ 50 mls/hr Q2H PRN IV 06/12/17 09:45 (K-Lyte Cl Eff) 50 meq UNSCH PRN PO 06/12/17 09:45 Potassium Chloride 100 ml @ 25 mls/hr UNSCH PRN IV 06/12/17 09:45 Potassium Chloride 100 ml @ 50 mls/hr Q2H PRN IV 06/12/17 09:45 Magnesium Sulfate 4 gm/Sodium Chloride 100 ml @ 50 mls/hr UNSCH PRN IV 06/12/17 09:45 (Mag-Ox) 800 mg UNSCH PRN PO 06/12/17 09:45 Magnesium Sulfate 2 gm/Sodium Chloride 100 ml @ 50 mls/hr UNSCH PRN IV 06/12/17 09:45 (K-Phos) 2,000 mg Q4H PRN PO 06/12/17 09:45 Sodium Phosphate 30 mmol/Sodium Chloride 250 ml @ 42 mls/hr UNSCH PRN IV 06/12/17 09:45 (K-Phos) 2,000 mg UNSCH PRN PO/TUBE 06/12/17 09:45 Potassium Phosphate 30 mmol/ Sodium Chloride 260 ml @ 42 mls/hr UNSCH PRN IV 06/12/17 09:45 (D50w (Vial) Inj) 50 ml UNSCH PRN IV PUSH 06/12/17 09:45 (Glucagon Inj) 1 mg UNSCH PRN OTHER 06/12/17 13:00 Levofloxacin/ Dextrose 150 ml @ 100 mls/hr Q24H IV 06/12/17 14:00 06/15/17 14:23 (NovoLOG SUPPLEMENTAL SCALE) 1 ACHS AND 3AM SQ 06/13/17 12:00 06/15/17 16:22 ([place] 7.5-325 Mg) 1 tab Q4H PRN PO 06/13/17 09:45 06/15/17 15:57 (Morphine Inj) 4 mg Q3H PRN IV PUSH 06/13/17 09:45 (Morphine Inj) 2 mg Q3H PRN IV PUSH 06/13/17 09:45 06/15/17 18:12 (KCl) 10 meq Q12HR PO 06/13/17 21:00 06/15/17 08:50 (Levemir Inj) 40 units Q12HR SQ 06/15/17 09:00 06/15/17 08:51 (Nitroglycerin 2% Oint) 1 inch Q6HR PRN TOPICAL 06/15/17 08:30 (Cardizem Cd) 300 mg DAILY PO 06/15/17 09:30 06/15/17 09:30 (Cardizem) 30 mg QID PO 06/15/17 21:00 UNV Assessment and Plan Problem List: (1) Atrial flutter with rapid ventricular response ICD Codes: I48.92 - Unspecified atrial flutter Plan: In atrial flutter HR difficulty to control Some SOB On antibiotic A flutter ablation Sunday if stable (2) CHF (congestive heart failure) ICD Codes: I50.9 - Congestive heart failure Status: Chronic Plan: Improving Problem Qualifiers (1) CHF (congestive heart failure): Ramón North MD Jun 15, 2017 19:55
[2017-06-15] MEDS: DILTIAZEM HCL 30 MG TAB PO SCH (20:55)
[2017-06-16] VITALS (9 sets, daily range): BP systolic 126–150; BP diastolic 67–80; PULSE 70–107; RESP 16–20; TEMP 97.9–98.7; O2SAT 93–95
[2017-06-16] MEDS: ACETAMINOPHEN/HYDROcodone 325 MG/7.5 MG TAB PO PRN ×6 (01:12→22:12)
[2017-06-16] MEDS: INSULIN ASPART SUPPLEMENTAL SCALE SQ SCH ×5 (02:44→20:55)
[2017-06-16] MEDS: CHLORHEXIDINE GLUCONATE 2 % 1 PACK (2 CLOTHS) TOP SCH (03:31)
[2017-06-16] MEDS: MORPHINE SULFATE 2 MG/ML INJ IV PUSH PRN ×5 (03:47→20:54)
[2017-06-16] MEDS: DILTIAZEM INJ 125 MG in SODIUM CHLORIDE 0.9% INJ 100 ML IV PRN (03:52)
[2017-06-16] MEDS: RESP: ALBUTEROL 2.5 MG/IPRATROPIUM 0.5 MG NEB (SCH) NEB ×4 (04:04→20:14)
[2017-06-16 04:30] LABS: HEMATOCRIT 32.8 % (39.0-51.0); HEMOGLOBIN 9.4 GM/DL (13.0-17.0); MEAN CELL VOLUME 68.6 FL (80.0-100.0); MEAN CORPUSCULAR HEMOGLOBIN 19.6 PG (27.0-34.0); MEAN PLATELET VOLUME 8.2 FL (7.0-11.0); PLATELET COUNT 202 TH/MM3 (150-450); RED BLOOD COUNT 4.78 MIL/MM3 (4.50-5.90); RED CELL DISTRIBUTION WIDTH 25.6 % (11.6-17.2); WHITE BLOOD COUNT 5.2 TH/MM3 (4.0-11.0)
[2017-06-16 04:40] LABS: MEAN CORPUSCULAR HGB CONC 28.5 % (32.0-36.0)
[2017-06-16 04:50] LABS: BICARBONATE 37.3 MEQ/L (21.0-32.0); CALCIUM 9.1 MG/DL (8.5-10.1); CREATININE 0.69 MG/DL (0.60-1.30)
--- NOTE | 2017-06-16 05:24 | RADRPT ---
EXAM DATE/TIME: 06/16/2017 04:45 [place] COMPARISON: CHEST SINGLE AP, June 15, 2017, 5:16. INDICATIONS : Shortness of breath, possible pulmonary disease. MEDICAL HISTORY : Chronic obstructive pulmonary disease. Congestive heart failure. Hypertension. Diabetes SURGICAL HISTORY : None. ENCOUNTER: Subsequent ACUITY: 1 week PAIN SCORE: 6/10 LOCATION: Bilateral chest FINDINGS: Some mild linear opacities in the retrocardiac region similar to prior examination. There is persist ent blunting of the costophrenic angle the right, also stable from prior. No new findings. The hear t is normal size. CONCLUSION: Stable small infiltrate left lower lung and stable small right pleural effusion. Jose Loaiza MD on June 16, 2017 at 5:22 Board Certified Radiologist. This report was verified electronically.
[2017-06-16] MEDS: FUROSEMIDE 40 MG/4 ML VIAL IV PUSH SCH ×2 (08:34→17:32)
[2017-06-16] MEDS: ISOSORBIDE MONONITRATE 30 MG CR TAB (IMDUR) PO SCH (08:35)
[2017-06-16] MEDS: DILTIAZEM HCL 30 MG TAB PO SCH ×4 (08:36→22:12)
[2017-06-16] MEDS: PANTOPRAZOLE SOD 40 MG DELAYED RELEASE TAB PO SCH (08:37)
[2017-06-16] MEDS: hydrALAZINE HCL 25 MG TAB PO SCH ×3 (08:37→17:32)
[2017-06-16] MEDS: PREGABALIN 25 MG CAP PO SCH (08:38)
[2017-06-16] MEDS: buPROPion HCL 100 MG TAB PO SCH (08:38)
[2017-06-16] MEDS: POTASSIUM CHLORIDE 10 MEQ CONTROLLED RELEASE TAB PO SCH ×2 (08:38→20:54)
[2017-06-16] MEDS: DOCUSATE SODIUM 50 MG/SENNA 8.6 MG TAB PO SCH ×2 (08:39→20:54)
[2017-06-16] MEDS: BUDESONIDE-FORMOTEROL 160/4.5 MCG INHALER INH SCH (08:39)
--- NOTE | 2017-06-16 08:48 | HHI.CCPN ---
Subjective Remarks/Hospital Course This is a 57-year-old male. Date of admission 06/11/2017. Date of consultation 06/12/2017. Past medical history includes seizure disorder, THC use , coronary artery disease 30% LAD 2015 heart catheterization, hypertension, dyslipidemia, oxygen dependent COPD, 2 L nasal cannula, peripheral neuropathy, gastroesophageal reflux disease and uncontrolled diabetes mellitus. According to records, patient was hospitalized at [facility] and was discharged within the past week. He states he has been compliant with his medications. Noted does have history of medical noncompliance. He presented to [facility] initially with chief complaint of "my legs are swollen". He is noted to have an elevated troponin of 0.11 and was admitted under Dr. Gilliland. Patient received albuterol/Ultram aerosols and furosemide 1. Patient placed on high flow nasal cannula. He patient refused CPAP due to claustrophobia. ABG revealed CO2 retention Chest x-ray revealed hyperinflated lungs. Troponin was 0.11. EKG is currently pending. Troponin downtrending to current the 0.06. Was placed on Nitropaste 2 inches every 6 hours and enoxaparin 120 mg twice daily. Alarm Operator been counseled as well. Denies chest pain, shortness of breath, abdominal pain. Main complaint is painful swelling in his legs. He states he occasionally smokes THC for pain management as tramadol does not provide adequate pain relief at home 06/13: Resting comfortably in chair on high flow nasal cannula 20 L at 50%. Troponin trended downward from 0.11 which is 0.05. Denies chest pain. Alarm Operator placed the patient on diltiazem CD 240 mg p.o. daily with the diltiazem drip for additional rate control. Negative CT pulmonary angiogram for PE. Negative Doppler lower extremities for thrombus. Iron deficiency anemia workup in progress. 06/14: Currently on nasal cannula 6 L. Diltiazem currently at 5 mg an hour. Plan for ablation tomorrow per cardiology. Requesting to transfer room but stated he needs to be off diltiazem gtt prior to lateral transfer. 06/15: Continues to be a nasal cannula currently at 4 L. Diltiazem drip currently at 10 mg an hour. Plan for ablation tentatively today per cardiology' s note from yesterday. Elevated blood sugars noted while on steroids. Increasing diltiazem CD from 240 mg daily to 300 mg p.o. daily SUBJECTIVE 06/16: Afebrile. Diltiazem currently at 5 mg an hour. Ablation planned for Sunday. Will increase diltiazem to 420 mg continuous daily and attempt wean off drip. Objective Vital Signs Date Time Temp Pulse Resp B/P (MAP) Pulse Ox O2 Delivery O2 Flow Rate FiO2 06/16/17 07:00 82 150/71 06/16/17 03:52 20 06/16/17 03:00 97.9 94 06/15/17 19:34 Nasal Cannula 3.00 06/14/17 00:19 21 Intake and Output 06/16/17 06/16/17 06/17/17 08:00 16:00 00:00 Intake Total 1262 ml Output Total 2550 ml Balance -1288 ml Result Diagram: 06/16/17 0343 06/16/17 0343 Other Results Microbiology Date/Time Source Procedure Growth Status 06/11/17 19:30 Blood Peripheral Aerobic Blood Culture - Preliminary NO GROWTH IN 4 DAYS Resulted 06/11/17 19:30 Blood Peripheral Anaerobic Blood Culture - Preliminary NO GROWTH IN 4 DAYS Resulted 06/12/17 10:20 Nasal Aspirate Influenza Types A,B Antigen (JOLLY) - Final NEGATIVE FOR FLU A AND B ANTIGEN.... Complete 06/12/17 10:36 Urine Catheterized Urine Legionella Antigen - Final PRESUMPTIVE NEGATIVE FOR LEGIONELLA P... Complete 06/12/17 10:36 Urine Catheterized Urine Streptococcus pneumoniae Antigen (M - Final PRESUMPTIVE NEGATIVE FOR STREPTOCOCCU... Complete Imaging Last Impressions Chest X-Ray 06/16/17 0600 Signed Impressions: Service Date/Time: Friday, June 16, 2017 04:45 - CONCLUSION: Stable small infiltrate left lower lung and stable small right pleural effusion. Jose Loaiza MD Lower Extremity Ultrasound 06/12/17 0000 Signed Impressions: Service Date/Time: Monday, June 12, 2017 14:23 - CONCLUSION: No DVT in either lower extremity. Jose L Rodríguez MD CT Angiography 06/12/17 0000 Signed Impressions: Service Date/Time: Monday, June 12, 2017 11:42 - CONCLUSION: 1. No evidence of acute pulmonary embolism. 2. Bibasilar airway disease with bilateral subsegmental air space disease. 3. Emphysematous chronic obstructive pulmonary disease. 4. Cardiomegaly. 5. Ascites identified in the abdomen. Franklin Ibanez MD Objective Remarks GENERAL: 57-year-old male currently resting in chair in no acute distress on 4 L nasal cannula SKIN: Warm and dry. Chronic venous stasis bilateral lower extremities HEAD: Atraumatic. Normocephalic. EYES: Pupils equal and round around 3 mm bilaterally and reactive. No scleral icterus. No injection or drainage. ENT: No nasal bleeding or discharge. Mucous membranes pink and moist. NECK: Trachea midline. No JVD. CARDIOVASCULAR: Tachycardic, IR. S1, S2 no strip without murmurs, clicks, gallops or rubs RESPIRATORY: Diminished breath sounds throughout. No wheezing is appreciated. I do not appreciate any rales on my examination GASTROINTESTINAL: Abdomen non-tender, protuberant. Hypoactive bowel sounds appreciated MUSCULOSKELETAL: Extremities with 1-2+ bilateral lower extremity edema. No obvious deformities. NEUROLOGICAL: Awake and alert. No obvious cranial nerve deficits. Motor grossly within normal limits. Five out of 5 muscle strength in the arms and legs. Normal speech. Urinary Catheter: No Assessment to: Continue Vascular Central Line Catheter: No Assessment to: Continue A/P Assessment and Plan Neuro/Psych: Seizure disorder NOS Chronic pain syndrome History of THC use Depression Acetaminophen 650 mg p.o. every 6 hours as needed fever Hydrocodone/acetaminophen 7.5/325 1 tablet every 4 hours as needed pain 1-5 Morphine sulfate 2 mg IV every 3 hours as needed pain 6-10 with 3 mg IV every 3 years. For breakthrough pain Continue pregabalin 50 mg once a daily and bupropion 100 mg once a daily/home medications for depression Patient is on tramadol 50 mg every 4 hours as needed pain at home CV: Elevated troponin Nonobstructive coronary disease History of hypertension Dyslipidemia Atrial fibrillation with rapid ventricular response Currently on enoxaparin 120 mg subcu twice daily Diltiazem drip at 5 mg an hour for rate control Started on diltiazem CD 300 mg p.o. daily. Increase to 420 mg p.o. daily 06/16 Troponin 0.11 decrease to 0.06 to 0.05. Cardiology/Dr. Chaney has seen and evaluated the patient and recommended medical management Evaluated by Dr. North. Ablation Sunday 2D echocardiogram august 2016 revealed EF 55-60%. No regional wall motion abnormality. On furosemide 40 milligrams iv twice daily Patient is on hydralazine 25 mg 3 times daily and isosorbide mononitrate 30 mg daily at home. Continue Patient is on spironolactone 100 mg twice daily home. This has been held while on furosemide Patient has an aspirin 81 mg daily. This was held by cardiology secondary to bleeding risk while on enoxaparin Resp: Acute hypoxemic respiratory failure Chronic respiratory insufficiency/COPD 2 L oxygen dependent Ongoing tobacco abuse Nasal cannula 4 L titrated to maintain saturations greater than or equal to 88 percent Incentive spirometry while awake Albuterol/ipratropium aerosols every 4 hours with albuterol aerosols every 2 hours. Dyspnea Resumed fluticasone/salmeterol 250/50 1 inhalation twice daily Methylprednisolone succinate 60 mg IV every 12 hours Patient is on albuterol/ipratropium aerosols every 4 hours as needed home along with albuterol aerosols every 4 hours as needed dyspnea Negative CT pulmonary angiogram for central PE. Emphysematous changes. Possible diffuse infiltrative process Tobacco cessation self-education booklet will be provided GI: Gastroesophageal reflux disease Chronic constipation Hypoalbuminemia Patient is currently on diabetic diet 2500 kcal with snacks.. Pantoprazole 40 mg daily for GI prophylaxis. Patient is on omeprazole 40 mg daily at home Docusate sodium/senna 1 tablet twice daily for bowel regimen Patient is on senna as an outpatient : Mcclendon catheter if indicated for accurate I's and O's in a critically ill patient Endo: Diabetes mellitus Sliding scale insulin with Novulog with Accu-Cheks to maintain euglycemia/high regimen before meals/at bedtime. 100 units sliding scale insulin past 24 hours Holding insulin glargine 80 units subcu twice daily. Start on insulin detemir 80 units subcu twice daily. Renal: Creatinine currently close to normal limits Monitor urine output Accurate I's and O's Recheck BMP in a.m. Heme: Microcytic hypochromic anemia Patient has not had an EGD or colonoscopy done Does not meet transfusion threshold at the time We will check Hemoccult stool and iron studies 1 while on enoxaparin ID: Currently levofloxacin and 1 dose vancomycin for possible community acquired pneumonia/sepsis 06/12 blood cultures 2, sputum and influenza no growth to date/negative. Sputum not performed. MSK: Elevated BMI Weight loss encouraged PT evaluate and treat FEN: Hyponatremia Replace electrolytes as clinically indicated Access -Utilize peripheral IV. Central line if indicated Prophylaxis -GI -pantoprazole -DVT -SCD/enoxaparen Level 2 follow-up. Patient is currently off diltiazem drip. Stable from a critical care medicine standpoint. Okay to transfer to [facility]. We will sign off. Call if questions arise. Emiliano Portillo MD Jun 16, 2017 08:48
[2017-06-16] MEDS: SODIUM CHLORIDE 0.9% FLUSH 10 ML FLUSH IV FLUSH SCH ×2 (08:54→20:55)
[2017-06-16] MEDS: DILTIAZEM-CD 300 MG CAP ER PO SCH (08:55)
[2017-06-16] MEDS: DILTIAZEM-CD 120 MG CAP ER PO SCH (09:00)
[2017-06-16] MEDS: INSULIN DETEMIR 100 UNITS/ML VIAL SQ SCH ×2 (09:28→20:54)
[2017-06-16] MEDS: ENOXAPARIN SODIUM 120 MG/0.8 ML SYRINGE SQ SCH ×2 (09:28→20:53)
[2017-06-16] MEDS: LEVOFLOXACIN 750 MG PREMIX INJ 150 ML IV SCH (13:11)
--- NOTE | 2017-06-16 15:50 | HHI.PR ---
Subjective Remarks 57 YOWM with COPD.JEFF,A.Flutter, Nicotine use Did't use CPAP Up in chair Breathing much better Anxious to get out of here Objective Vital Signs Vital Signs Date Time Temp Pulse Resp B/P (MAP) Pulse Ox O2 Delivery O2 Flow Rate FiO2 06/16/17 15:00 81 06/16/17 15:00 98.7 87 20 127/75 (92) 94 06/16/17 11:00 98.5 85 20 149/80 (103) 94 06/16/17 11:00 85 06/16/17 10:48 95 Nasal Cannula 4.00 06/16/17 08:46 93 Nasal Cannula 4.00 06/16/17 07:00 82 06/16/17 07:00 95 Nasal Cannula 4.00 06/16/17 07:00 98.7 82 18 150/71 (97) 95 06/16/17 07:00 82 150/71 06/16/17 03:52 20 06/16/17 03:52 96 143/69 06/16/17 03:00 70 06/16/17 03:00 97.9 90 20 139/74 (95) 94 06/16/17 02:12 18 06/15/17 23:00 98 06/15/17 23:00 97.9 82 20 131/64 (86) 91 06/15/17 19:34 91 Nasal Cannula 3.00 06/15/17 19:00 98.0 95 21 142/70 (94) 91 06/15/17 19:00 91 Nasal Cannula 4.00 Humidified 06/15/17 19:00 90 I/O 06/15/17 06/15/17 06/15/17 06/16/17 06/16/17 06/16/17 07:00 15:00 23:00 07:00 15:00 23:00 Intake Total 1118 ml 100 ml 1700 ml 1262 ml Output Total 2525 ml 2120 ml 2550 ml Balance -1407 ml 100 ml -420 ml -1288 ml Intake Oral 960 ml 1700 ml 960 ml IV Total 158 ml 100 ml 302 ml Output Urine Total 2525 ml 2120 ml 2550 ml # Bowel Movements 0 1 1 Result Diagram: 06/16/17 0343 06/16/17 0343 Objective Remarks GENERAL: Obese WM, mild sob SKIN: Warm and dry. HEAD: Normocephalic. EYES: No scleral icterus. No injection or drainage. NECK: Supple, trachea midline. No JVD or lymphadenopathy. CARDIOVASCULAR: Regular rate and rhythm without murmurs, gallops, or rubs. RESPIRATORY: Breath sounds equal bilaterally. No accessory muscle use. GASTROINTESTINAL: Abdomen soft, non-tender, nondistended. MUSCULOSKELETAL: No cyanosis, ++ edema. BACK: Nontender without obvious deformity. No CVA tenderness. A/P Assessment and Plan Hypercapnoic RF COPD Exac JEFF A.Flutter Hyperglycemia Nicotine use PLAN: DC Solumedrol Aerosol nebs Cont ABX Cardiazem for rate controll 02 to keep sat 88-92% PO Steroids Ablation planned for Sunday. Ankit Morel MD Jun 16, 2017 15:50
[2017-06-16] MEDS: MAGNESIUM HYDROXIDE SUSP 30 ML CUP PO PRN (16:03)
[2017-06-16] MEDS: methylPREDNISolone SOD SUCC 125 MG/2 ML VIAL IV PUSH SCH (17:32)
[2017-06-16] MEDS: BUDESONIDE-FORMOTEROL 80/4.5 MCG INHALER INH SCH (20:55)
[2017-06-17] VITALS (10 sets, daily range): BP systolic 129–165; BP diastolic 59–87; PULSE 71–135; RESP 18–20; TEMP 98.2–98.8; O2SAT 89–95
[2017-06-17] MEDS: RESP: ALBUTEROL 2.5 MG/IPRATROPIUM 0.5 MG NEB (SCH) NEB ×6 (00:18→20:04)
[2017-06-17] MEDS: MORPHINE SULFATE 2 MG/ML INJ IV PUSH PRN ×6 (00:24→21:19)
[2017-06-17] MEDS: ACETAMINOPHEN/HYDROcodone 325 MG/7.5 MG TAB PO PRN ×6 (02:13→22:57)
[2017-06-17] MEDS: INSULIN ASPART SUPPLEMENTAL SCALE SQ SCH ×5 (02:18→21:30)
[2017-06-17] MEDS: CHLORHEXIDINE GLUCONATE 2 % 1 PACK (2 CLOTHS) TOP SCH (04:00)
[2017-06-17 05:54] LABS: AUTOMATED NEUTROPHIL # 4.5 TH/MM3 (1.8-7.7); BASOPHIL % 0.1 % (0.0-2.0); HEMATOCRIT 33.3 % (39.0-51.0); HEMOGLOBIN 9.7 GM/DL (13.0-17.0); LYMPH % 9.3 % (9.0-44.0); LYMPHOCYTE # 0.5 TH/MM3 (1.0-4.8); MEAN CELL VOLUME 67.6 FL (80.0-100.0); MEAN CORPUSCULAR HEMOGLOBIN 19.7 PG (27.0-34.0); MEAN PLATELET VOLUME 8.3 FL (7.0-11.0); MONO % 4.6 % (0.0-8.0); MONOCYTE # 0.2 TH/MM3 (0-0.9); PLATELET COUNT 221 TH/MM3 (150-450); RED BLOOD COUNT 4.93 MIL/MM3 (4.50-5.90); RED CELL DISTRIBUTION WIDTH 24.8 % (11.6-17.2); WHITE BLOOD COUNT 5.3 TH/MM3 (4.0-11.0)
[2017-06-17 05:56] LABS: MEAN CORPUSCULAR HGB CONC 29.1 % (32.0-36.0)
--- NOTE | 2017-06-17 06:09 | RADRPT ---
EXAM DATE/TIME: 06/17/2017 04:11 [place] COMPARISON: CHEST SINGLE AP, June 16, 2017, 4:45. INDICATIONS : Shortness of breath, possible pulmonary disease. MEDICAL HISTORY : Chronic obstructive pulmonary disease. Congestive heart failure. Hypertension. Diabetes SURGICAL HISTORY : None. ENCOUNTER: Subsequent ACUITY: 1 week PAIN SCORE: 2/10 LOCATION: Bilateral chest FINDINGS: There is persistent blunting of the right costophrenic angle suggesting a small right pleural effusio n. Some indistinctness of the bronchopulmonary markings in the retrocardiac left lower lung is simil ar to prior examination; no air bronchograms. The upper lungs are clear. The heart is stable in siz e. CONCLUSION: Stable appearance to small right pleural effusion and non-consolidative infiltrate left lower lung. Jose Loaiza MD on June 17, 2017 at 6:07 Board Certified Radiologist. This report was verified electronically.
[2017-06-17] MEDS: methylPREDNISolone SOD SUCC 125 MG/2 ML VIAL IV PUSH SCH ×2 (06:14→17:02)
[2017-06-17 06:24] LABS: ALBUMIN 3.3 GM/DL (3.4-5.0); ALKALINE PHOSPHATASE 134 U/L (45-117); ALT (GPT) 27 U/L (12-78); AST (GOT) 10 U/L (15-37); BICARBONATE 35.9 MEQ/L (21.0-32.0); BLOOD UREA NITROGEN 24 MG/DL (7-18); CALCIUM 9.3 MG/DL (8.5-10.1); CHLORIDE 90 MEQ/L (98-107); GLOMERULAR FILTRATION RATE 117 ML/MIN (>89); GLUCOSE,RANDOM 215 MG/DL (74-106); SODIUM (NA) 133 MEQ/L (136-145); TOTAL BILIRUBIN ADULT 0.5 MG/DL (0.2-1.0)
[2017-06-17] MEDS: BUDESONIDE-FORMOTEROL 80/4.5 MCG INHALER INH SCH ×2 (08:00→21:00)
[2017-06-17] MEDS: INSULIN DETEMIR 100 UNITS/ML VIAL SQ SCH ×2 (08:00→21:31)
[2017-06-17] MEDS: DOCUSATE SODIUM 50 MG/SENNA 8.6 MG TAB PO SCH ×2 (08:02→21:19)
[2017-06-17] MEDS: hydrALAZINE HCL 25 MG TAB PO SCH ×3 (08:02→17:02)
[2017-06-17] MEDS: POTASSIUM CHLORIDE 10 MEQ CONTROLLED RELEASE TAB PO SCH ×2 (08:02→21:19)
[2017-06-17] MEDS: PREGABALIN 25 MG CAP PO SCH (08:02)
[2017-06-17] MEDS: DILTIAZEM-CD 120 MG CAP ER PO SCH (08:03)
[2017-06-17] MEDS: ISOSORBIDE MONONITRATE 30 MG CR TAB (IMDUR) PO SCH (08:03)
[2017-06-17] MEDS: buPROPion HCL 100 MG TAB PO SCH (08:03)
[2017-06-17] MEDS: FUROSEMIDE 40 MG/4 ML VIAL IV PUSH SCH ×2 (08:04→17:03)
[2017-06-17] MEDS: PANTOPRAZOLE SOD 40 MG DELAYED RELEASE TAB PO SCH (08:05)
[2017-06-17] MEDS: SODIUM CHLORIDE 0.9% FLUSH 10 ML FLUSH IV FLUSH SCH ×2 (08:14→21:19)
[2017-06-17] MEDS: DILTIAZEM-CD 300 MG CAP ER PO SCH (08:18)
[2017-06-17] MEDS: ENOXAPARIN SODIUM 120 MG/0.8 ML SYRINGE SQ SCH ×2 (10:17→21:18)
[2017-06-17] MEDS: LEVOFLOXACIN 750 MG PREMIX INJ 150 ML IV SCH (13:18)
[2017-06-17] MEDS: MAGNESIUM HYDROXIDE SUSP 30 ML CUP PO PRN (14:26)
--- NOTE | 2017-06-17 15:25 | HHI.PR ---
Subjective Remarks This is a 57-year-old male. Date of admission 06/11/2017. Date of consultation 06/12/2017. Past medical history includes seizure disorder, THC use , coronary artery disease 30% LAD 2015 heart catheterization, hypertension, dyslipidemia, oxygen dependent COPD, 2 L nasal cannula, peripheral neuropathy, gastroesophageal reflux disease and uncontrolled diabetes mellitus. According to records, patient was hospitalized at [facility] and was discharged within the past week. He states he has been compliant with his medications. Noted does have history of medical noncompliance. He presented to [facility] initially with chief complaint of "my legs are swollen". He is noted to have an elevated troponin of 0.11 and was admitted under Dr. Gilliland. Patient received albuterol/Ultram aerosols and furosemide 1. Patient placed on high flow nasal cannula. He patient refused CPAP due to claustrophobia. ABG revealed CO2 retention Chest x-ray revealed hyperinflated lungs. Troponin was 0.11. EKG is currently pending. Troponin downtrending to current the 0.06. Was placed on Nitropaste 2 inches every 6 hours and enoxaparin 120 mg twice daily. Liquid Waste Treatment Plant Operator been counseled as well. Denies chest pain, shortness of breath, abdominal pain. Main complaint is painful swelling in his legs. He states he occasionally smokes THC for pain management as tramadol does not provide adequate pain relief at home 06/13: Resting comfortably in chair on high flow nasal cannula 20 L at 50%. Troponin trended downward from 0.11 which is 0.05. Denies chest pain. Liquid Waste Treatment Plant Operator placed the patient on diltiazem CD 240 mg p.o. daily with the diltiazem drip for additional rate control. Negative CT pulmonary angiogram for PE. Negative Doppler lower extremities for thrombus. Iron deficiency anemia workup in progress. 06/14: Currently on nasal cannula 6 L. Diltiazem currently at 5 mg an hour. Plan for ablation tomorrow per cardiology. Requesting to transfer room but stated he needs to be off diltiazem gtt prior to lateral transfer. 06/15: Continues to be a nasal cannula currently at 4 L. Diltiazem drip currently at 10 mg an hour. Plan for ablation tentatively today per cardiology' s note from yesterday. Elevated blood sugars noted while on steroids. Increasing diltiazem CD from 240 mg daily to 300 mg p.o. daily SUBJECTIVE 06/16: Afebrile. Diltiazem currently at 5 mg an hour. Ablation planned for Sunday. Will increase diltiazem to 420 mg continuous daily and attempt wean off drip. 06/17. Patient says he is feeling well. Denies any chest pain shortness of breath. Denies any nausea or vomiting. Heart rate in the 130s this morning. Discussed with nursing. Objective Vital Signs Date Time Temp Pulse Resp B/P (MAP) Pulse Ox O2 Delivery O2 Flow Rate FiO2 06/17/17 14:30 138 06/17/17 13:00 99 06/17/17 12:08 92 Nasal Cannula 4.00 06/17/17 12:00 84 06/17/17 11:00 98.5 96 18 131/75 (93) 90 06/17/17 11:00 96 06/17/17 11:00 96 06/17/17 10:00 115 06/17/17 09:00 135 144/80 06/17/17 07:00 135 06/17/17 07:00 95 Nasal Cannula 4.00 06/17/17 07:00 98.8 135 20 147/87 (107) 95 06/17/17 03:52 92 Nasal Cannula 4.00 06/17/17 03:45 86 06/17/17 03:45 98.2 92 18 165/76 (105) 93 06/17/17 00:19 93 Nasal Cannula 4.00 06/16/17 23:43 98.0 83 18 126/67 (86) 93 06/16/17 23:43 101 06/16/17 19:32 93 Nasal Cannula 4.00 06/16/17 19:32 98.1 97 16 144/78 (100) 93 06/16/17 19:00 107 I/O 06/16/17 06/16/17 06/16/17 06/17/17 06/17/17 06/17/17 07:00 15:00 23:00 07:00 15:00 23:00 Intake Total 1262 ml 150 ml 3045 ml 960 ml Output Total 2550 ml 3250 ml 2850 ml Balance -1288 ml 150 ml -205 ml -1890 ml Intake Oral 960 ml 3000 ml 960 ml IV Total 302 ml 150 ml 45 ml Output Urine Total 2550 ml 3250 ml 2850 ml # Bowel Movements 1 1 2 Result Diagram: 06/17/1741406/17/17414 Objective Remarks GENERAL: Patient sitting up in chair at bedside. Appears comfortable. Alert and oriented 3. SKIN: Warm and dry. HEAD: Normocephalic. EYES: No scleral icterus. No injection or drainage. NECK: Supple, trachea midline. No JVD. CARDIOVASCULAR: Regular rate and rhythm without murmurs, gallops, or rubs. RESPIRATORY: Breath sounds equal bilaterally. No accessory muscle use. GASTROINTESTINAL: Abdomen soft, non-tender, nondistended. MUSCULOSKELETAL: No cyanosis, or edema. BACK: Nontender without obvious deformity. No CVA tenderness. A/P Assessment and Plan Neuro/Psych: Seizure disorder NOS Chronic pain syndrome History of THC use Depression Acetaminophen 650 mg p.o. every 6 hours as needed fever Hydrocodone/acetaminophen 7.5/325 1 tablet every 4 hours as needed pain 1-5 Morphine sulfate 2 mg IV every 3 hours as needed pain 6-10 with 3 mg IV every 3 years. For breakthrough pain Continue pregabalin 50 mg once a daily and bupropion 100 mg once a daily/home medications for depression Patient is on tramadol 50 mg every 4 hours as needed pain at home CV: Elevated troponin Nonobstructive coronary disease History of hypertension Dyslipidemia Atrial fibrillation with rapid ventricular response Currently on enoxaparin 120 mg subcu twice daily Diltiazem drip at 5 mg an hour for rate control Started on diltiazem CD 300 mg p.o. daily. Increase to 420 mg p.o. daily 06/16 Troponin 0.11 decrease to 0.06 to 0.05. Cardiology/Dr. Chaney has seen and evaluated the patient and recommended medical management Evaluated by Dr. North. Ablation Sunday 2D echocardiogram august 2016 revealed EF 55-60%. No regional wall motion abnormality. On furosemide 40 milligrams iv twice daily Patient is on hydralazine 25 mg 3 times daily and isosorbide mononitrate 30 mg daily at home. Continue Patient is on spironolactone 100 mg twice daily home. This has been held while on furosemide Patient has an aspirin 81 mg daily. This was held by cardiology secondary to bleeding risk while on enoxaparin = Patient on 420 mg of diltiazem daily. With heart rate in the 130s this morning. I have ordered 2 mg of IV diltiazem, 30 mg of short acting diltiazem 1. Nursing to inform cardiology. Resp: Acute hypoxemic respiratory failure Chronic respiratory insufficiency/COPD 2 L oxygen dependent Ongoing tobacco abuse Nasal cannula 4 L titrated to maintain saturations greater than or equal to 88 percent Incentive spirometry while awake Albuterol/ipratropium aerosols every 4 hours with albuterol aerosols every 2 hours. Dyspnea Resumed fluticasone/salmeterol 250/50 1 inhalation twice daily Methylprednisolone succinate 60 mg IV every 12 hours Patient is on albuterol/ipratropium aerosols every 4 hours as needed home along with albuterol aerosols every 4 hours as needed dyspnea Negative CT pulmonary angiogram for central PE. Emphysematous changes. Possible diffuse infiltrative process Tobacco cessation self-education booklet will be provided GI: Gastroesophageal reflux disease Chronic constipation Hypoalbuminemia Patient is currently on diabetic diet 2500 kcal with snacks.. Pantoprazole 40 mg daily for GI prophylaxis. Patient is on omeprazole 40 mg daily at home Docusate sodium/senna 1 tablet twice daily for bowel regimen Patient is on senna as an outpatient : Mcclendon catheter if indicated for accurate I's and O's in a critically ill patient Endo: Diabetes mellitus Sliding scale insulin with Novulog with Accu-Cheks to maintain euglycemia/high regimen before meals/at bedtime. 100 units sliding scale insulin past 24 hours Holding insulin glargine 80 units subcu twice daily. Start on insulin detemir 80 units subcu twice daily. = Glucose still elevated in the 200s. Increase Levemir. Renal: Creatinine currently close to normal limits Monitor urine output Accurate I's and O's Recheck BMP in a.m. Heme: Microcytic hypochromic anemia Patient has not had an EGD or colonoscopy done Does not meet transfusion threshold at the time We will check Hemoccult stool and iron studies 1 while on enoxaparin ID: Currently levofloxacin and 1 dose vancomycin for possible community acquired pneumonia/sepsis 06/12 blood cultures 2, sputum and influenza no growth to date/negative. Sputum not performed. MSK: Elevated BMI Weight loss encouraged PT evaluate and treat FEN: Hyponatremia Replace electrolytes as clinically indicated Access -Utilize peripheral IV. Central line if indicated Prophylaxis -GI -pantoprazole -DVT -SCD/enoxaparen Discharge Planning Pending cardiac ablation tomorrow. Appreciate cardiology assistance. Miguel Frank MD Jun 17, 2017 15:25
[2017-06-17] MEDS ORDERED: DILTIAZEM HCL 25 MG/5 ML VIAL IV ONE (15:30)
[2017-06-17] MEDS ORDERED: DILTIAZEM HCL 30 MG TAB PO ONE (15:30)
--- NOTE | 2017-06-17 17:45 | HHI.PR ---
Subjective Remarks 57 YOWM with COPD.EJFF,A.Flutter, Nicotine use Did't use CPAP Up in chair Breathing much better Anxious to get out of here HR was high, started back on Cardiazem drip Objective Vital Signs Vital Signs Date Time Temp Pulse Resp B/P (MAP) Pulse Ox O2 Delivery O2 Flow Rate FiO2 06/17/17 17:00 104 06/17/17 16:00 111 06/17/17 15:00 108 06/17/17 14:30 138 06/17/17 13:00 99 06/17/17 12:08 92 Nasal Cannula 4.00 06/17/17 12:00 84 06/17/17 11:00 98.5 96 18 131/75 (93) 90 06/17/17 11:00 96 06/17/17 11:00 96 06/17/17 10:00 115 06/17/17 09:00 135 144/80 06/17/17 07:00 135 06/17/17 07:00 95 Nasal Cannula 4.00 06/17/17 07:00 98.8 135 20 147/87 (107) 95 06/17/17 03:52 92 Nasal Cannula 4.00 06/17/17 03:45 86 06/17/17 03:45 98.2 92 18 165/76 (105) 93 06/17/17 00:19 93 Nasal Cannula 4.00 06/16/17 23:43 98.0 83 18 126/67 (86) 93 06/16/17 23:43 101 06/16/17 19:32 93 Nasal Cannula 4.00 06/16/17 19:32 98.1 97 16 144/78 (100) 93 06/16/17 19:00 107 I/O 06/16/17 06/16/17 06/16/17 06/17/17 06/17/17 06/17/17 07:00 15:00 23:00 07:00 15:00 23:00 Intake Total 1262 ml 150 ml 3045 ml 960 ml Output Total 2550 ml 3250 ml 2850 ml Balance -1288 ml 150 ml -205 ml -1890 ml Intake Oral 960 ml 3000 ml 960 ml IV Total 302 ml 150 ml 45 ml Output Urine Total 2550 ml 3250 ml 2850 ml # Bowel Movements 1 1 2 Result Diagram: 06/17/17 0415 06/17/17 0415 Objective Remarks GENERAL: Obese WM, mild sob SKIN: Warm and dry. HEAD: Normocephalic. EYES: No scleral icterus. No injection or drainage. NECK: Supple, trachea midline. No JVD or lymphadenopathy. CARDIOVASCULAR: Regular rate and rhythm without murmurs, gallops, or rubs. RESPIRATORY: Breath sounds equal bilaterally. No accessory muscle use. GASTROINTESTINAL: Abdomen soft, non-tender, nondistended. MUSCULOSKELETAL: No cyanosis, ++ edema. BACK: Nontender without obvious deformity. No CVA tenderness. A/P Assessment and Plan Hypercapnoic RF COPD Exac JEFF A.Flutter Hyperglycemia Nicotine use PLAN: Aerosol nebs Cont ABX Cardiazem drip for rate controll to keep sat 88-92% PO Steroids Ablation planned for Sunday. Ankit Morel MD Jun 17, 2017 17:45
[2017-06-17] MEDS: DILTIAZEM INJ 125 MG in SODIUM CHLORIDE 0.9% INJ 100 ML IV PRN (19:42)
[2017-06-18] VITALS (19 sets, daily range): BP systolic 128–154; BP diastolic 64–82; PULSE 81–140; RESP 18–22; TEMP 97.4–98.8; O2SAT 92–100
[2017-06-18] MEDS: RESP: ALBUTEROL 2.5 MG/IPRATROPIUM 0.5 MG NEB (SCH) NEB ×6 (00:32→20:40)
[2017-06-18] MEDS: MORPHINE SULFATE 2 MG/ML INJ IV PUSH PRN ×3 (01:25→09:17)
[2017-06-18] MEDS: INSULIN ASPART SUPPLEMENTAL SCALE SQ SCH ×5 (03:00→21:00)
[2017-06-18] MEDS: ACETAMINOPHEN/HYDROcodone 325 MG/7.5 MG TAB PO PRN ×4 (03:07→15:04)
[2017-06-18] MEDS: CHLORHEXIDINE GLUCONATE 2 % 1 PACK (2 CLOTHS) TOP SCH (04:00)
[2017-06-18] MEDS: methylPREDNISolone SOD SUCC 125 MG/2 ML VIAL IV PUSH SCH ×2 (06:00→17:46)
[2017-06-18] MEDS: DILTIAZEM INJ 125 MG in SODIUM CHLORIDE 0.9% INJ 100 ML IV PRN (06:47)
[2017-06-18] MEDS: DILTIAZEM-CD 120 MG CAP ER PO SCH (09:06)
[2017-06-18] MEDS: BUDESONIDE-FORMOTEROL 80/4.5 MCG INHALER INH SCH ×2 (09:06→21:57)
[2017-06-18] MEDS: DILTIAZEM-CD 300 MG CAP ER PO SCH (09:06)
[2017-06-18] MEDS: POTASSIUM CHLORIDE 10 MEQ CONTROLLED RELEASE TAB PO SCH ×2 (09:07→21:57)
[2017-06-18] MEDS: DOCUSATE SODIUM 50 MG/SENNA 8.6 MG TAB PO SCH ×2 (09:07→21:58)
[2017-06-18] MEDS: PANTOPRAZOLE SOD 40 MG DELAYED RELEASE TAB PO SCH (09:07)
[2017-06-18] MEDS: ISOSORBIDE MONONITRATE 30 MG CR TAB (IMDUR) PO SCH (09:07)
[2017-06-18] MEDS: PREGABALIN 25 MG CAP PO SCH (09:07)
[2017-06-18] MEDS: hydrALAZINE HCL 25 MG TAB PO SCH ×3 (09:07→17:47)
[2017-06-18] MEDS: buPROPion HCL 100 MG TAB PO SCH (09:07)
[2017-06-18] MEDS: FUROSEMIDE 40 MG/4 ML VIAL IV PUSH SCH ×2 (09:08→17:47)
[2017-06-18] MEDS: SODIUM CHLORIDE 0.9% FLUSH 10 ML FLUSH IV FLUSH SCH ×2 (09:13→21:57)
[2017-06-18] MEDS: ENOXAPARIN SODIUM 120 MG/0.8 ML SYRINGE SQ SCH (09:16)
[2017-06-18] MEDS: INSULIN DETEMIR 100 UNITS/ML VIAL SQ SCH ×2 (09:16→23:36)
--- NOTE | 2017-06-18 09:47 | HHI.FPPN ---
Subjective Remarks ascites to abdomen c/o abd distension looks weaker d/w RN Objective Vitals Vital Signs Date Time Temp Pulse Resp B/P (MAP) Pulse Ox O2 Delivery O2 Flow Rate FiO2 06/18/17 09:35 22 06/18/17 08:09 20 06/18/17 07:25 97 Nasal Cannula 4.00 06/18/17 07:00 94 Nasal Cannula 4.00 06/18/17 07:00 91 06/18/17 07:00 98.8 91 18 149/79 (102) 94 06/18/17 06:47 75 134/76 06/18/17 04:30 92 Nasal Cannula 4.00 06/18/17 03:00 98.8 87 18 132/82 (99) 94 06/18/17 03:00 81 06/18/17 00:32 93 Nasal Cannula 4.00 06/17/17 23:00 81 06/17/17 23:00 98.6 71 18 136/59 (84) 95 06/17/17 20:07 92 Nasal Cannula 4.00 06/17/17 20:00 92 Nasal Cannula 4.00 06/17/17 20:00 107 06/17/17 20:00 98.2 107 18 129/84 (99) 92 06/17/17 19:42 103 129/84 06/17/17 18:30 138 06/17/17 18:00 130 06/17/17 17:00 104 06/17/17 16:00 111 06/17/17 15:00 104 06/17/17 15:00 98.6 111 20 147/67 (93) 89 06/17/17 15:00 108 06/17/17 14:30 138 06/17/17 13:00 99 06/17/17 12:08 92 Nasal Cannula 4.00 06/17/17 12:00 84 06/17/17 11:00 98.5 96 18 131/75 (93) 90 06/17/17 11:00 96 06/17/17 11:00 96 06/17/17 10:00 115 I/O 06/17/17 06/17/17 06/17/17 06/18/17 06/18/17 06/18/17 07:00 15:00 23:00 07:00 15:00 23:00 Intake Total 960 ml 2925 ml 885 ml Output Total 2850 ml 3800 ml 2550 ml Balance -1890 ml -875 ml -1665 ml Intake Oral 960 ml 2800 ml 760 ml IV Total 125 ml 125 ml Output Urine Total 2850 ml 3800 ml 2550 ml # Bowel Movements 2 1 0 Result Diagram: 06/17/1741406/17/17414 Objective Remarks GENERAL: SKIN: Warm and dry. HEAD: Atraumatic. Normocephalic. EYES: Pupils equal and round. No scleral icterus. No injection or drainage. ENT: No nasal bleeding or discharge. Mucous membranes pink and moist. NECK: Trachea midline. No JVD. CARDIOVASCULAR: IRR IRR, RESPIRATORY: B Rales and ronchi, tachypneic GASTROINTESTINAL: Abdomen soft, non-tender, nondistended. Hepatic and splenic margins not palpable. MUSCULOSKELETAL: 3 + edema. No obvious deformities. NEUROLOGICAL: Awake and alert. No obvious cranial nerve deficits. Motor grossly within normal limits. Five out of 5 muscle strength in the arms and legs. Normal speech. PSYCHIATRIC: Appropriate mood and affect; insight and judgment normal. Medications and IVs Current Medications Medications (Trade) Dose Ordered Sig/Whit Route Start Time Stop Time Status Last Admin (Ambien) 5 mg HS PRN PO 06/11/17 21:00 (Narcan Inj) 0.4 mg UNSCH PRN IV PUSH 06/11/17 21:00 (Milk Of Magnesia Liq) 30 ml Q12H PRN PO 06/11/17 21:00 06/17/17 14:26 (Ativan) 0.5 mg Q8H PRN PO 06/11/17 21:00 (Catapres) 0.1 mg Q6H PRN PO 06/11/17 21:00 (Lasix Inj) 40 mg BID@,18 IV PUSH 06/12/17 09:00 06/18/17 09:08 (Lovenox Inj) 120 mg Q12H SQ 06/11/17 22:00 06/18/17 09:16 Diltiazem HCl 125 mg/Sodium Chloride 125 ml @ 5 mls/hr TITRATE PRN IV 06/11/17 21:15 06/18/17 06:47 (Albuterol Neb) 2.5 mg Q2HR NEB PRN NEB 06/12/17 09:45 06/12/17 10:25 (Wellbutrin) 100 mg DAILY PO 06/13/17 09:00 06/18/17 09:07 (Apresoline) 25 mg TID PO 06/12/17 13:00 06/18/17 09:07 (Imdur) 30 mg DAILY PO 06/13/17 09:00 06/18/17 09:07 (Lyrica) 50 mg DAILY PO 06/13/17 09:00 06/18/17 09:07 (NS Flush) 2 ml UNSCH PRN IV FLUSH 06/12/17 13:00 (NS Flush) 2 ml BID IV FLUSH 06/12/17 21:00 06/18/17 09:13 (Tylenol) 650 mg Q6H PRN PO 06/12/17 13:00 (Protonix) 40 mg DAILY PO 06/13/17 09:00 06/18/17 09:07 (Zofran Inj) 4 mg Q6H PRN IV PUSH 06/12/17 13:00 Miscellaneous Information 1 Q361D XX 06/12/17 09:45 (Chlorhexidine 2% Cloth) Taper DAILY@04 TOP 06/13/17 04:00 06/09/18 03:59 06/17/17 04:00 (Chlorhexidine 2% Cloth) 3 pack UNSCH PRN TOP 06/12/17 09:45 (Amira-Colace) 1 tab BID PO 06/12/17 21:00 06/18/17 09:07 (Milk Of Magnesia Liq) 30 ml Q12H PRN PO 06/12/17 13:00 (Senokot) 17.2 mg Q12H PRN PO 06/12/17 13:15 (Dulcolax Supp) 10 mg DAILY PRN RECTAL 06/12/17 09:45 (Lactulose Liq) 30 ml DAILY PRN PO 06/12/17 09:45 Potassium Chloride 100 ml @ 50 mls/hr Q2H PRN IV 06/12/17 09:45 Potassium Chloride 100 ml @ 50 mls/hr Q2H PRN IV 06/12/17 09:45 (K-Lyte Cl Eff) 50 meq UNSCH PRN PO 06/12/17 09:45 Potassium Chloride 100 ml @ 25 mls/hr UNSCH PRN IV 06/12/17 09:45 Potassium Chloride 100 ml @ 50 mls/hr Q2H PRN IV 06/12/17 09:45 Magnesium Sulfate 4 gm/Sodium Chloride 100 ml @ 50 mls/hr UNSCH PRN IV 06/12/17 09:45 (Mag-Ox) 800 mg UNSCH PRN PO 06/12/17 09:45 Magnesium Sulfate 2 gm/Sodium Chloride 100 ml @ 50 mls/hr UNSCH PRN IV 06/12/17 09:45 (K-Phos) 2,000 mg Q4H PRN PO 06/12/17 09:45 Sodium Phosphate 30 mmol/Sodium Chloride 250 ml @ 42 mls/hr UNSCH PRN IV 06/12/17 09:45 (K-Phos) 2,000 mg UNSCH PRN PO/TUBE 06/12/17 09:45 Potassium Phosphate 30 mmol/ Sodium Chloride 260 ml @ 42 mls/hr UNSCH PRN IV 06/12/17 09:45 (D50w (Vial) Inj) 50 ml UNSCH PRN IV PUSH 06/12/17 09:45 (Glucagon Inj) 1 mg UNSCH PRN OTHER 06/12/17 13:00 Levofloxacin/ Dextrose 150 ml @ 100 mls/hr Q24H IV 06/12/17 14:00 06/17/17 13:18 (NovoLOG SUPPLEMENTAL SCALE) 1 ACHS AND 3AM SQ 06/13/17 12:00 06/18/17 03:00 (Eagle 7.5-325 Mg) 1 tab Q4H PRN PO 06/13/17 09:45 06/18/17 07:09 (Morphine Inj) 4 mg Q3H PRN IV PUSH 06/13/17 09:45 (Morphine Inj) 2 mg Q3H PRN IV PUSH 06/13/17 09:45 06/18/17 09:17 (KCl) 10 meq Q12HR PO 06/13/17 21:00 06/18/17 09:07 (Nitroglycerin 2% Oint) 1 inch Q6HR PRN TOPICAL 06/15/17 08:30 (Cardizem Cd) 300 mg DAILY PO 06/16/17 09:00 06/18/17 09:06 (Cardizem Cd) 120 mg DAILY PO 06/16/17 09:00 06/18/17 09:06 (SoluMEDROL INJ) 60 mg Q12H IV PUSH 06/16/17 18:00 06/18/17 06:00 (Duoneb Neb) 1 ampule Q4HR NEB NEB 06/16/17 12:00 06/18/17 07:25 (Symbicort 80-4.5 Mcg Inh) 2 puff Q12HR INH 06/16/17 21:00 06/18/17 09:06 (Levemir Inj) 85 units Q12HR SQ 06/17/17 21:00 06/18/17 09:16 A/P Assessment and Plan Assessment and Plan Neuro/Psych: Seizure disorder NOS Chronic pain syndrome History of THC use Depression Acetaminophen 650 mg p.o. every 6 hours as needed fever Hydrocodone/acetaminophen 7.5/325 1 tablet every 4 hours as needed pain 1-5 Morphine sulfate 2 mg IV every 3 hours as needed pain 6-10 with 3 mg IV every 3 years. For breakthrough pain Continue pregabalin 50 mg once a daily and bupropion 100 mg once a daily/home medications for depression Patient is on tramadol 50 mg every 4 hours as needed pain at home CV: Elevated troponin Nonobstructive coronary disease History of hypertension Dyslipidemia Atrial fibrillation with rapid ventricular response Currently on enoxaparin 120 mg subcu twice daily Diltiazem drip at 5 mg an hour for rate control Started on diltiazem CD 300 mg p.o. daily. Increase to 420 mg p.o. daily 06/16 Troponin 0.11 decrease to 0.06 to 0.05. Cardiology/Dr. Chaney has seen and evaluated the patient and recommended medical management Evaluated by Dr. North. Ablation 2D echocardiogram august 2016 revealed EF 55-60%. No regional wall motion abnormality. On furosemide 40 milligrams iv twice daily Patient is on hydralazine 25 mg 3 times daily and isosorbide mononitrate 30 mg daily at home. Continue Patient is on spironolactone 100 mg twice daily home. This has been held while on furosemide Patient has an aspirin 81 mg daily. This was held by cardiology secondary to bleeding risk while on enoxaparin = Patient on 420 mg of diltiazem daily. With heart rate in the 130s this morning. Resp: Acute hypoxemic respiratory failure Chronic respiratory insufficiency/COPD 2 L oxygen dependent Ongoing tobacco abuse Nasal cannula 4 L titrated to maintain saturations greater than or equal to 88 percent Incentive spirometry while awake Albuterol/ipratropium aerosols every 4 hours with albuterol aerosols every 2 hours. Dyspnea Resumed fluticasone/salmeterol 250/50 1 inhalation twice daily Methylprednisolone succinate 60 mg IV every 12 hours Patient is on albuterol/ipratropium aerosols every 4 hours as needed home along with albuterol aerosols every 4 hours as needed dyspnea Negative CT pulmonary angiogram for central PE. Emphysematous changes. Possible diffuse infiltrative process Tobacco cessation self-education booklet will be provided GI: Gastroesophageal reflux disease Chronic constipation Hypoalbuminemia Patient is currently on diabetic diet 2500 kcal with snacks.. Pantoprazole 40 mg daily for GI prophylaxis. Patient is on omeprazole 40 mg daily at home Docusate sodium/senna 1 tablet twice daily for bowel regimen Patient is on senna as an outpatient : Mcclendon catheter if indicated for accurate I's and O's in a critically ill patient Endo: Diabetes mellitus Sliding scale insulin with Novulog with Accu-Cheks to maintain euglycemia/high regimen before meals/at bedtime. 100 units sliding scale insulin past 24 hours Holding insulin glargine 80 units subcu twice daily. Start on insulin detemir 80 units subcu twice daily. = Glucose still elevated in the 200s. Increase Levemir. Renal: Creatinine currently close to normal limits Monitor urine output Accurate I's and O's Recheck BMP in a.m. Heme: Microcytic hypochromic anemia Patient has not had an EGD or colonoscopy done Does not meet transfusion threshold at the time We will check Hemoccult stool and iron studies 1 while on enoxaparin ID: [id number]- Currently levofloxacin and 1 dose vancomycin for community acquired pneumonia/sepsis 06/12 blood cultures 2, sputum and influenza no growth to date/negative. Sputum not performed. MSK: Elevated BMI Weight loss encouraged PT evaluate and treat FEN: Hyponatremia Replace electrolytes as clinically indicated Access -Utilize peripheral IV. Central line if indicated Prophylaxis -GI -pantoprazole -DVT -SCD/enoxaparen Discharge Planning Pending cardiac ablation Jozef Gilliland MD Jun 18, 2017 09:47
[2017-06-18] MEDS ORDERED: PROPOFOL 200 MG/20 ML AMP IV ONE (12:00)
[2017-06-18] MEDS: MORPHINE SULFATE 4 MG/ML INJ IV PUSH PRN ×3 (12:45→23:24)
[2017-06-18] MEDS: LEVOFLOXACIN 750 MG PREMIX INJ 150 ML IV SCH (14:27)
[2017-06-18] MEDS ORDERED: MIDAZOLAM HCL 2 MG/2 ML VIAL ONE ×2 (15:43→18:01)
[2017-06-18] MEDS ORDERED: ISOPROTERENOL HCL 0.2 MG/ML AMP IV ONE ×2 (15:44→18:03)
--- NOTE | 2017-06-18 19:05 | HHI.PR ---
Subjective Remarks 57 YOWM with COPD.JEFF,A.Flutter, Nicotine use Did't use CPAP Up in chair Breathing much better Anxious to get out of here Objective Vital Signs Vital Signs Date Time Temp Pulse Resp B/P (MAP) Pulse Ox O2 Delivery O2 Flow Rate FiO2 06/18/17 17:00 93 06/18/17 16:57 20 06/18/17 16:03 21 06/18/17 16:00 85 06/18/17 15:15 85 06/18/17 15:00 100 20 128/64 (85) 100 06/18/17 15:00 99 06/18/17 15:00 100 Nasal Cannula 4.00 06/18/17 14:00 133 06/18/17 13:00 126 06/18/17 12:03 140 134/80 06/18/17 12:00 140 06/18/17 11:00 126 22 134/80 (98) 96 06/18/17 11:00 123 06/18/17 11:00 96 Nasal Cannula 4.00 Humidified 06/18/17 10:14 22 06/18/17 10:00 131 06/18/17 09:35 22 06/18/17 09:15 131 06/18/17 09:15 96 Nasal Cannula 4.00 Humidified 06/18/17 09:15 98.3 140 22 131/67 (88) 96 06/18/17 07:25 97 Nasal Cannula 4.00 06/18/17 07:00 94 Nasal Cannula 4.00 06/18/17 07:00 91 06/18/17 07:00 98.8 91 18 149/79 (102) 94 06/18/17 06:47 75 134/76 06/18/17 04:30 92 Nasal Cannula 4.00 06/18/17 03:00 98.8 87 18 132/82 (99) 94 06/18/17 03:00 81 06/18/17 00:32 93 Nasal Cannula 4.00 06/17/17 23:00 81 06/17/17 23:00 98.6 71 18 136/59 (84) 95 06/17/17 20:07 92 Nasal Cannula 4.00 06/17/17 20:00 92 Nasal Cannula 4.00 06/17/17 20:00 107 06/17/17 20:00 98.2 107 18 129/84 (99) 92 06/17/17 19:42 103 129/84 I/O 06/17/17 06/17/17 06/17/17 06/18/17 06/18/17 06/18/17 07:00 15:00 23:00 07:00 15:00 23:00 Intake Total 960 ml 2925 ml 885 ml 510 ml Output Total 2850 ml 3800 ml 2550 ml 1100 ml Balance -1890 ml -875 ml -1665 ml -590 ml Intake Oral 960 ml 2800 ml 760 ml 360 ml IV Total 125 ml 125 ml 150 ml Output Urine Total 2850 ml 3800 ml 2550 ml 1100 ml # Bowel Movements 2 1 0 Result Diagram: 06/17/17 0415 06/17/17 041 Objective Remarks GENERAL: Obese WM, mild sob SKIN: Warm and dry. HEAD: Normocephalic. EYES: No scleral icterus. No injection or drainage. NECK: Supple, trachea midline. No JVD or lymphadenopathy. CARDIOVASCULAR: Regular rate and rhythm without murmurs, gallops, or rubs. RESPIRATORY: Breath sounds equal bilaterally. No accessory muscle use. GASTROINTESTINAL: Abdomen soft, non-tender, nondistended. MUSCULOSKELETAL: No cyanosis, ++ edema. BACK: Nontender without obvious deformity. No CVA tenderness. A/P Assessment and Plan Hypercapnoic RF COPD Exac JEFF A.Flutter Hyperglycemia Nicotine use PLAN: Aerosol nebs Cont ABX Cardiazem drip for rate controll 02 to keep sat 88-92% PO Steroids Ablation today DW Ankit Allan MD Jun 18, 2017 19:05
[2017-06-18] MEDS ORDERED: HEPARIN-NS/PF FLUSH BAG 1,000 ML IV FLUSH ONE (19:10)
--- NOTE | 2017-06-18 19:42 | CATHPROC ---
Patient Name: BRICE SHOEMAKER Study #: [id number] Initial MD: Ramón North Date of : 1960 Study Date: 06/18/2017 Cardiac Catheterization Report 06/18/2017 7:42:03 PM Financial #: [id number] 1 of 9 Patient Name: BRICE SHOEMAKER Study #: [id number] Initial MD: Ramón North Date of : 1960 Study Date: 06/18/2017 Entire Case Report Patient Information Patient Name BRICE SHOEMAKER Date of 1960 Age 57 years Financial # [id number] Gender M AlternateID Lab Number 2 Room Number 451 Height (in) 70.0 Height (cm) 177.8 BSA 2.45 Weight (lbs) 290.0 Weight (kg) 131.8 Patient Address/Phone Number Home Address [facility] Home Phone Number [facility] [phone] Study Information Study Number Admission Scheduled Start Study Start [id number] Jun 11 2017 9:00PM 06/18/2017 Jun 18 2017 1:49PM [facility] Electrophysiology Study Admit Source Facility Department Other [facility] - Picker Machine Operator Physician and Clinical Staff Initial Ramón Leija Workers' Compensation Claims Examiner Rafael Galindo,RT(R) Other Anesthesia, SPECIAL EDUCATION INSTRUCTOR Recorder Alexandria Cross,DMITRI Scrub Tiffany Andrews RCIS Procedures Performed Procedure Location (Site) Vessel Name Cardioversion RF Ablation Isthmus Other 06/18/2017 7:42:03 PM Financial #: [id number] 2 of 9 Patient Name: BRICE SHOEMAKER Study #: [id number] Initial MD: Ramón North Date of : 1960 Study Date: 06/18/2017 Equipment Time Kennel Supervisor Description Size Mfg Part Number Used/Scraped BIOSENSE BUITRAGO CATHETER, CELSIUS DS, 8MM, F [id number] 17:50 FR 7 Used INC. TYPE QUAD *[id number] 17:49 MEDLINE IND[employer] PACK, CCL CUSTOM * Used *[id number] 17:49 MEDLINE PACER HARTMAN, LIMB * 2530 *[id number] Used [id number] 19:05 NAMIC TUBING, HIGH PRESSURE 20" 20" Used *[id number] 18:55 NAMIC TUBING, HIGH PRESSURE 48" 48" Used *[id number] 17:49 [employer] BLANKET,WARM AIR CCL * Used *[id number] 17:49 [employer] CATHETER, JSN, QUAD FR 5 Used *[id number] 17:49 [employer] MEDICAL CATHETER, JSN, QUAD FR 5 Used *[id number] [id number] 17:49 [employer] MEDICAL CATHETER, JSN, QUAD FR 5 Used *[id number] 334855 17:49 [employer] MEDICAL CATHETER, JSN, QUAD FR 5 Used *[id number] 17:49 [employer] MEDICAL ELECTRODE KIT, ALOK X SURFACE * Used *[id number] 766786 17:49 [employer] MED[employer] SHEATH, EPS, FR5 FAST CATH FR 5 Used *[id number] 17:49 [employer] MED[employer] SHEATH, EPS, FR5 FAST CATH FR 5 Used *[id number] [id number] 17:49 [employer] MEDICAL SHEATH, EPS, FR5 FAST CATH FR 5 Used *[id number] [id number] 17:49 [employer] MEDICAL SHEATH, EPS, FR6 FAST CATH FR 6 Used *1555016 538245 17:49 [employer] MEDICAL SHEATH, EPS, FR8 FAST CATH FR 8 Used *[id number] 401221 18:56 [employer] MEDICAL SHEATH, EPS, FR8 SRO 60CM FR 8 Used *[id number] [facility], ELECTROSURGICAL 17:49 * [id number] *[id number] Used SURGICAL GROUNDING (BLUE) Insurance Information Insurance Payor State Specific Plan Third Constitution Party Third Constitution Party Number [facility] History: Allergies Allergy Reaction No Known Allergies Labs 06/18/2017 7:42:03 PM Financial #: [id number] 3 of 9 Patient Name: BRICE SHOEMAKER Study #: [id number] Initial MD: Ramón North Date of : 1960 Study Date: 06/18/2017 Hgb (g/dl) Hct (%) WBC (l/cumm) Platelets (thousands) 11.60-17.00 35.00-51.00 4.00-11.00 150.00-450.00 9.7 33.3 5.3 221 Glucose (mg/dl) BUN (mg/dl) Creatinine (mg/dl) BUN:Creatinine (1:x) 74.00-106.00 7.00-18.00 0.50-1.30 10.00-20.00 117 24 0.7 34.3 Na (meq/l) K (meq/l) 136.00-145.00 3.50-5.10 133 4.3 Medication Medication Total Dose (Bolus/Oral) Medication Total Dosage/Unit 1% XYLOCAINE 40 mL Medications (Bolus/Oral) Medication Time Given Dosage/Unit Administered By Reason 1% XYLOCAINE 06/18/2017 6:40:38 PM 20 mL Ramón North 20 mL 1% XYLOCAINE given in lab by Ramón North in Left Groin via Subcutaneous. 1% XYLOCAINE 06/18/2017 6:44:00 PM 20 mL Ramón North 20 mL 1% XYLOCAINE given in lab by Ramón North in Right Groin via Subcutaneous. 06/18/2017 7:42:03 PM Financial #: [id number] 4 of 9 Patient Name: BRICE SHOEMAKER Study #: [id number] Initial MD: Ramón North Date of : 1960 Study Date: 06/18/2017 Initial Case Assessment Cardiovascular HR Rhythm NIBP Chest Pain 95 afl 146/75 0 Edema Present Skin color Skin Severe Normal Warm Circulatory - Right Pulses Dorsalis Pedis 1 Scale (0,1,2,3,4,d) Circulatory - Left Pulses Dorsalis Pedis 1 Scale (0,1,2,3,4,d) Circulatory - Lower Extremities Color Lower Right Color Lower Left Normal Normal Neurological State Oriented to time-place- Alert Moves all extremities person Respiration - General Respiration Rate SpO2 (%) (B/min) 21 98 06/18/2017 7:42:03 PM Financial #: [id number] 5 of 9 Patient Name: BRICE SHOEMAKER Study #: [id number] Initial MD: Ramón North Date of : 1960 Study Date: 06/18/2017 Final Case Assessment Cardiovascular HR Rhythm NIBP Chest Pain 81 sr 113/71 0 Edema Present Skin color Skin Moderate Normal Warm Dry Circulatory - Right Pulses Dorsalis Pedis 1 Scale (0,1,2,3,4,d) Circulatory - Left Pulses Dorsalis Pedis 1 Scale (0,1,2,3,4,d) Circulatory - Lower Extremities Color Lower Right Color Lower Left Normal Normal Neurological State Lethargic Respiration - General Respiration Rate SpO2 (%) O2 (lpm) (B/min) 18 100 6 Chronological Log Time Study Chronological Log 18:07:12 Patient arrived via Bed. 18:07:13 Patient Name, D.O.B, / Armband Verified By R.N. 18:07:14 Consent signed by the physician and the patient and verified by the Picker Machine Operator staff. 18:07:15 Pre-op and post- op instructions given; patient acknowledges understanding of instructions. 18:07:15 Verbal Stimulation=2 Physical Stimulation=2 Airway=2 Respiration=2 TOTAL=8. (0=absent, 1=li mited, 2=present) 18:07:23 Anesthesia at bedside. Assumes care of patient. 18:07:27 Patient has been NPO for More than 6Hrs. 18:07:28 Skin Breakdown- generalized skin tears and scabs. Legs reddened 18:07:44 Patient Warmer Placed on the Table. 06/18/2017 7:42:03 PM Financial #: [id number] 6 of 9 Patient Name: BRICE SHOEMAKER Study #: [id number] Initial MD: Ramón North Date of : 1960 Study Date: 06/18/2017 18:07:46 Disposable Defibrillator Pads Placed On Patient. 18:07:47 Hunter Prominences Protected 18:07:50 A # 20 IV was noted in the Forearm (left). Grade = 0 0.9ns kvo 18:07:51 History and physical on the chart or being dictated. 18:30:00 MD arrived. Assessment: Initial Case, HR=95 BPM, Rhythm=afl, DNKX=050/75 mmhg, Chest Pain=0, Edema=Severe, Color=Normal, Skin = Warm Right Pulses: Scott Ped=1 Left Pulses: Scott Ped=1 18:32:14 Lower Right Extremities: Color=Normal Lower Left Extremities: Color=Normal Neurological: State=Alert, Ox3, JARQUIN Respiration: Resp=21 B/min, SpO2=98 % 18:33:22 Table restraints applied according to hospital policy 18:33:28 Bilateral groins prepped with 2% chlorhexidine, and draped after a 3 minute waiting time. 18:39:09 Reference ECG taken Time Out. Correct patient, procedure, procedure equipment, site and side verified with physicia n present. Time 18:40:00 concurred by MD, individual staff and SPECIAL EDUCATION INSTRUCTOR. Time Out #2 - Consents verified, patient in correct position, all results are labled and displa yed, safety precautions 18:40:13 taken, antibiotics administered. Time out concurred by MD, individual staff and SPECIAL EDUCATION INSTRUCTOR in procedu re 18:40:29 Case Start 18:40:38 20 mL 1% XYLOCAINE given in lab by Ramón North in Left Groin via Subcutaneous. 18:41:06 Vascular access was obtained in the Fem Vein (left). 18:41:09 Vascular access was obtained in the Fem Vein (left). 18:41:12 Vascular access was obtained in the Fem Vein (left). 18:42:31 A SHEATH, EPS, FR5 FAST CATH FR 5 was advanced into the Fem Vein (left) using the Modified Seldinger technique. 18:42:38 A SHEATH, EPS, FR5 FAST CATH FR 5 was advanced into the Fem Vein (left) using the Modified Seldinger technique. 18:42:41 A SHEATH, EPS, FR5 FAST CATH FR 5 was advanced into the Fem Vein (left) using the Modified Seldinger technique. 18:44:00 20 mL 1% XYLOCAINE given in lab by Ramón North in Right Groin via Subcutaneous. 18:44:15 Vascular access was obtained in the Fem Vein (right). 18:44:18 Vascular access was obtained in the Fem Vein (right). A SHEATH, EPS, FR6 FAST CATH FR 6 was advanced into the Fem Vein (right) using the Modified Akilah ramos technique. 18:44:19 0.9ns kvo for anesthesia access connected. 18:44:28 A SHEATH, EPS, FR8 FAST CATH FR 8 was advanced into the Fem Vein (right) using the Modified Seldinger technique. A CATHETER, JSN, QUAD FR 5 was advanced vis Fem Vein (left) and placed in the CS. Placement was visually 18:44:42 confirmed under fluoroscopy. A CATHETER, JSN, QUAD FR 5 was advanced vis Fem Vein (left) and placed in the HIS. Placement wa s visually 18:45:18 confirmed under fluoroscopy. A CATHETER, JSN, QUAD FR 5 was advanced vis Fem Vein (left) and placed in the RVA. Placement wa s visually 18:46:06 confirmed under fluoroscopy. A CATHETER, JSN, QUAD FR 5 was advanced vis Fem Vein (right) and placed in the HRA. Placement w as visually 18:46:24 confirmed under fluoroscopy. A CATHETER, CELSIUS DS, 8MM, F TYPE QUAD FR 7 was advanced vis Fem Vein (right) and placed in t he HRA. 18:48:02 Placement was visually confirmed under fluoroscopy. 18:49:21 EPS in progress. 06/18/2017 7:42:03 PM Financial #: [id number] Patient Name: BRICE SHOEMAKER Study #: [id number] Initial MD: Ramón North Date of : 1960 Study Date: 06/18/2017 18:49:51 RF Ablation of the Isthmus with a CATHETER, CELSIUS DS, 8MM, F TYPE QUAD FR 7. 18:55:39 Abl cath out A SHEATH, EPS, FR8 SRO 60CM FR 8 was exchanged for the 8 fr in the Fem Vein (right). This was necessary in order 18:55:54 for catheter support. A CATHETER, CELSIUS DS, 8MM, F TYPE QUAD FR 7 was advanced vis Fem Vein (right) and placed in the Isthmus. 18:56:25 Placement was visually confirmed under fluoroscopy. 19:00:00 RF Ablation of the Isthmus with a CATHETER, CELSIUS DS, 8MM, F TYPE QUAD FR 7. 19:03:52 Heparinized saline 1000units/500ml NS connected at 100cc/hr to SRO line. 19:25:52 ECG rhythm of AF noted. Patient cardioverted at 300 joules. Incomplete Success 19:26:27 Monitor AF 19:33:54 All catheters removed without difficulty 19:37:00 Sheaths removed; pressure applied to right groin access sites by DB. 19:37:21 Sheaths removed; pressure applied to lrft groin access sites by DC. 19:40:13 CPCU called. Spoke to Serena 19:40:33 Bedside Report will be given. 19:41:00 Case End Assessment: Final Case, HR=81 BPM, Rhythm=sr, IXZJ=439/71 mmhg, Chest Pain=0, Edema=Mod, Color =Normal, Skin = Warm, Dry Right Pulses: Scott Ped=1 Left Pulses: Scott Ped=1 19:41:04 Lower Right Extremities: Color=Normal Lower Left Extremities: Color=Normal Neurological: State=Lethargic Respiration: Resp=18 B/min, XsW0=967 %, O2=6 lpm 19:41:43 No case complications noted. 19:41:43 Cine recording checked. 19:42:47 Defibrillator and ground pads removed. Skin intact. 19:47:41 Sterile dressing applied to sites. Sites wnl 19:52:53 Patient moved to [facility] End Study - Contrast Media Used In Study Contrast Total Opened (mL) Total Used (mL) Total Wasted (mL) Unspecified 0 0 0 End Study - Maximum Contrast Load Max Contrast Load (mL) 941.6 06/18/2017 7:42:03 PM Financial #: [id number] 8 of Patient Name: BRICE SHOEMAKER Study #: [id number] Initial MD: Ramón North Date of : 1960 Study Date: 06/18/2017 End Study - Radiation Exposure Fluoro Time (minutes) 8.5 End Study - Patient Disposition Complications Transferred To Interventional Outcome No Telemetry Bed incomplete 06/18/2017 7:42:03 PM Financial #: [id number]
[2017-06-18] MEDS ORDERED: oxyCODONE/ACETAMINOPHEN 5 MG/325 MG TAB PO PRN (19:45)
[2017-06-18] MEDS ORDERED: LORazepam 2 MG/ML VIAL IV PUSH PRN (19:45)
[2017-06-18] MEDS ORDERED: ONDANSETRON HCL 4 MG/2 ML VIAL IV PUSH PRN (19:45)
[2017-06-18] MEDS ORDERED: LIDOCAINE HCL 1% 50 ML VIAL INFIL PRN (19:45)
[2017-06-18] MEDS ORDERED: SODIUM CHLOR 0.9% 250 ML INJ 250 ML IV PRN (19:45)
[2017-06-18] MEDS ORDERED: ATROPINE SULFATE 1 MG/ML VIAL IV PUSH PRN (19:45)
[2017-06-18] MEDS: oxyCODONE/ACETAMINOPHEN 5 MG/325 MG TAB PO PRN (21:13)
[2017-06-18] MEDS ORDERED: BACITRACIN OINT 0.9 GM PKT TOP ONE (21:15)
[2017-06-18] MEDS: AMIODARONE 200 MG TAB PO SCH (21:58)
[2017-06-18] MEDS: APIXABAN 5 MG TABLET PO SCH (21:58)
[2017-06-19] VITALS (24 sets, daily range): BP systolic 148–172; BP diastolic 73–92; PULSE 85–112; RESP 18–20; TEMP 97.4–98; O2SAT 91–97
[2017-06-19] MEDS: RESP: ALBUTEROL 2.5 MG/IPRATROPIUM 0.5 MG NEB (SCH) NEB ×6 (00:02→19:13)
[2017-06-19] MEDS: oxyCODONE/ACETAMINOPHEN 5 MG/325 MG TAB PO PRN ×5 (01:25→19:16)
[2017-06-19] MEDS: MORPHINE SULFATE 4 MG/ML INJ IV PUSH PRN ×3 (03:53→12:37)
[2017-06-19] MEDS: INSULIN ASPART SUPPLEMENTAL SCALE SQ SCH ×5 (03:53→22:06)
[2017-06-19] MEDS: CHLORHEXIDINE GLUCONATE 2 % 1 PACK (2 CLOTHS) TOP SCH (04:00)
[2017-06-19] MEDS: methylPREDNISolone SOD SUCC 125 MG/2 ML VIAL IV PUSH SCH ×2 (06:13→17:44)
[2017-06-19] MEDS: FUROSEMIDE 40 MG/4 ML VIAL IV PUSH SCH ×2 (08:18→17:43)
[2017-06-19] MEDS: INSULIN DETEMIR 100 UNITS/ML VIAL SQ SCH ×2 (08:19→21:30)
[2017-06-19] MEDS: DOCUSATE SODIUM 50 MG/SENNA 8.6 MG TAB PO SCH ×2 (08:19→21:30)
[2017-06-19] MEDS: BUDESONIDE-FORMOTEROL 80/4.5 MCG INHALER INH SCH ×2 (08:19→21:29)
[2017-06-19] MEDS: ISOSORBIDE MONONITRATE 30 MG CR TAB (IMDUR) PO SCH (08:19)
[2017-06-19] MEDS: hydrALAZINE HCL 25 MG TAB PO SCH ×3 (08:19→19:16)
[2017-06-19] MEDS: PANTOPRAZOLE SOD 40 MG DELAYED RELEASE TAB PO SCH (08:20)
[2017-06-19] MEDS: DILTIAZEM-CD 300 MG CAP ER PO SCH (08:20)
[2017-06-19] MEDS: buPROPion HCL 100 MG TAB PO SCH (08:20)
[2017-06-19] MEDS: APIXABAN 5 MG TABLET PO SCH ×2 (08:20→21:30)
[2017-06-19] MEDS: PREGABALIN 25 MG CAP PO SCH (08:20)
[2017-06-19] MEDS: AMIODARONE 200 MG TAB PO SCH ×2 (08:20→21:30)
[2017-06-19] MEDS: POTASSIUM CHLORIDE 10 MEQ CONTROLLED RELEASE TAB PO SCH ×2 (08:20→21:30)
[2017-06-19] MEDS: SODIUM CHLORIDE 0.9% FLUSH 10 ML FLUSH IV FLUSH SCH ×2 (08:21→21:29)
--- NOTE | 2017-06-19 08:32 | PD.CARD.PN ---
Subjective Subjective Remarks Feeling better. Objective Medications Current Medications Medications (Trade) Dose Ordered Sig/Whit Route Start Time Stop Time Status Last Admin (Ambien) 5 mg HS PRN PO 06/11/17 21:00 (Narcan Inj) 0.4 mg UNSCH PRN IV PUSH 06/11/17 21:00 (Milk Of Magnesia Liq) 30 ml Q12H PRN PO 06/11/17 21:00 06/17/17 14:26 (Ativan) 0.5 mg Q8H PRN PO 06/11/17 21:00 (Catapres) 0.1 mg Q6H PRN PO 06/11/17 21:00 (Lasix Inj) 40 mg BID@ IV PUSH 06/12/17 09:00 06/18/17 17:47 (Albuterol Neb) 2.5 mg Q2HR NEB PRN NEB 06/12/17 09:45 06/12/17 10:25 (Wellbutrin) 100 mg DAILY PO 06/13/17 09:00 06/18/17 09:07 (Apresoline) 25 mg TID PO 06/12/17 13:00 06/18/17 17:47 (Imdur) 30 mg DAILY PO 06/13/17 09:00 06/18/17 09:07 (Lyrica) 50 mg DAILY PO 06/13/17 09:00 06/18/17 09:07 (NS Flush) 2 ml UNSCH PRN IV FLUSH 06/12/17 13:00 (NS Flush) 2 ml BID IV FLUSH 06/12/17 21:00 06/18/17 21:57 (Tylenol) 650 mg Q6H PRN PO 06/12/17 13:00 (Protonix) 40 mg DAILY PO 06/13/17 09:00 06/18/17 09:07 (Zofran Inj) 4 mg Q6H PRN IV PUSH 06/12/17 13:00 Miscellaneous Information 1 Q361D XX 06/12/17 09:45 (Chlorhexidine 2% Cloth) Taper DAILY@04 TOP 06/13/17 04:00 06/09/18 03:59 06/17/17 04:00 (Chlorhexidine 2% Cloth) 3 pack UNSCH PRN TOP 06/12/17 09:45 (Amira-Colace) 1 tab BID PO 06/12/17 21:00 06/18/17 21:58 (Milk Of Magnesia Liq) 30 ml Q12H PRN PO 06/12/17 13:00 (Senokot) 17.2 mg Q12H PRN PO 06/12/17 13:15 (Dulcolax Supp) 10 mg DAILY PRN RECTAL 06/12/17 09:45 (Lactulose Liq) 30 ml DAILY PRN PO 06/12/17 09:45 Potassium Chloride 100 ml @ 50 mls/hr Q2H PRN IV 06/12/17 09:45 Potassium Chloride 100 ml @ 50 mls/hr Q2H PRN IV 06/12/17 09:45 (K-Lyte Cl Eff) 50 meq UNSCH PRN PO 06/12/17 09:45 Potassium Chloride 100 ml @ 25 mls/hr UNSCH PRN IV 06/12/17 09:45 Potassium Chloride 100 ml @ 50 mls/hr Q2H PRN IV 06/12/17 09:45 Magnesium Sulfate 4 gm/Sodium Chloride 100 ml @ 50 mls/hr UNSCH PRN IV 06/12/17 09:45 (Mag-Ox) 800 mg UNSCH PRN PO 06/12/17 09:45 Magnesium Sulfate 2 gm/Sodium Chloride 100 ml @ 50 mls/hr UNSCH PRN IV 06/12/17 09:45 (K-Phos) 2,000 mg Q4H PRN PO 06/12/17 09:45 Sodium Phosphate 30 mmol/Sodium Chloride 250 ml @ 42 mls/hr UNSCH PRN IV 06/12/17 09:45 (K-Phos) 2,000 mg UNSCH PRN PO/TUBE 06/12/17 09:45 Potassium Phosphate 30 mmol/ Sodium Chloride 260 ml @ 42 mls/hr UNSCH PRN IV 06/12/17 09:45 (D50w (Vial) Inj) 50 ml UNSCH PRN IV PUSH 06/12/17 09:45 (Glucagon Inj) 1 mg UNSCH PRN OTHER 06/12/17 13:00 Levofloxacin/ Dextrose 150 ml @ 100 mls/hr Q24H IV 06/12/17 14:00 06/18/17 14:27 (NovoLOG SUPPLEMENTAL SCALE) 1 ACHS AND 3AM SQ 06/13/17 12:00 3/6/18 03:53 (Morphine Inj) 4 mg Q3H PRN IV PUSH 06/13/17 09:45 06/19/17 03:53 (Morphine Inj) 2 mg Q3H PRN IV PUSH 06/13/17 09:45 06/18/17 09:17 (KCl) 10 meq Q12HR PO 06/13/17 21:00 06/18/17 21:57 (Nitroglycerin 2% Oint) 1 inch Q6HR PRN TOPICAL 06/15/17 08:30 (Cardizem Cd) 300 mg DAILY PO 06/16/17 09:00 06/18/17 09:06 (SoluMEDROL INJ) 60 mg Q12H IV PUSH 06/16/17 18:00 06/19/17 06:13 (Duoneb Neb) 1 ampule Q4HR NEB NEB 06/16/17 12:00 06/19/17 03:55 (Symbicort 80-4.5 Mcg Inh) 2 puff Q12HR INH 06/16/17 21:00 06/18/17 21:57 (Levemir Inj) 85 units Q12HR SQ 06/17/17 21:00 06/18/17 23:36 (Percocet 5-325 Mg) 1 tab Q4H PRN PO 06/18/17 19:45 (Percocet 5-325 Mg) 2 tab Q4H PRN PO 06/18/17 19:45 06/19/17 06:13 (Ativan Inj) 0.5 mg UNSCH PRN IV PUSH 06/18/17 19:45 06/19/17 19:44 (Atropine Inj) 0.5 mg UNSCH PRN IV PUSH 06/18/17 19:45 Sodium Chloride 250 ml @ 500 mls/hr ONCE PRN IV 06/18/17 19:45 06/19/17 19:44 (Zofran Inj) 4 mg Q4H PRN IV PUSH 06/18/17 19:45 (Xylocaine 1% Inj (50 ml)) 10 ml UNSCH PRN INFIL 06/18/17 19:45 06/19/17 19:44 (Eliquis) 5 mg BID PO 06/18/17 21:15 06/18/17 21:58 (Cordarone) 400 mg Q12HR PO 06/18/17 21:15 06/23/17 09:01 06/18/17 21:58 (Cordarone) 200 mg DAILY PO 06/24/17 09:00 Vital Signs / I&O Vital Signs Date Time Temp Pulse Resp B/P (MAP) Pulse Ox O2 Delivery O2 Flow Rate FiO2 06/19/17 07:32 97 Nasal Cannula 2.50 06/19/17 07:29 97.7 109 18 172/92 (118) 97 06/19/17 06:01 108 06/19/17 05:00 112 06/19/17 04:00 99 06/19/17 03:58 20 06/19/17 03:00 94 Nasal Cannula 3.00 06/19/17 03:00 97.4 99 155/80 (105) 94 06/19/17 03:00 104 06/19/17 02:33 18 06/19/17 02:00 108 06/19/17 01:00 112 06/19/17 00:00 108 06/18/17 23:00 97.8 106 154/67 (96) 96 06/18/17 23:00 96 Nasal Cannula 4.00 06/18/17 23:00 106 06/18/17 22:00 110 06/18/17 21:00 106 06/18/17 20:43 92 Nasal Cannula 4.00 06/18/17 20:00 97.4 100 151/74 (99) 96 06/18/17 20:00 96 Nasal Cannula 4.00 06/18/17 17:00 93 06/18/17 16:03 21 06/18/17 16:00 85 06/18/17 15:15 85 06/18/17 15:00 100 20 128/64 (85) 100 06/18/17 15:00 99 06/18/17 15:00 100 Nasal Cannula 4.00 06/18/17 14:00 133 06/18/17 13:00 126 06/18/17 12:03 140 134/80 06/18/17 12:00 140 06/18/17 11:00 126 22 134/80 (98) 96 06/18/17 11:00 123 06/18/17 11:00 96 Nasal Cannula 4.00 Humidified 06/18/17 10:14 22 06/18/17 10:00 131 06/18/17 09:35 22 06/18/17 09:15 131 06/18/17 09:15 96 Nasal Cannula 4.00 Humidified 06/18/17 09:15 98.3 140 22 131/67 (88) 96 I/O 06/18/17 06/18/17 06/18/17 06/19/17 06/19/17 06/19/17 06:59 14:59 22:59 06:59 14:59 22:59 Intake Total 885 ml 610 ml 1320 ml Output Total 2550 ml 1100 ml 1150 ml Balance -1665 ml -490 ml 170 ml Intake Oral 760 ml 360 ml 1320 ml IV Total 125 ml 250 ml Output Urine Total 2550 ml 1100 ml 1150 ml # Bowel Movements 0 Physical Exam GENERAL: Morbidly obese male, sitting up in chair in NAD. SKIN: Warm and dry. Multiple areas of ecchymosis scattered across trunk, arms. Erythematous area on left flank. Groin sites without erythema or bruising. HEAD: Normocephalic. EYES: No scleral icterus. No injection or drainage. NECK: Supple, trachea midline. No JVD or lymphadenopathy. CARDIOVASCULAR: S1, S2, regular rhythm, mildly tachycardic rate.. RESPIRATORY: Breath sounds very diminished, clear. GASTROINTESTINAL: Abdomen soft, non-tender, nondistended. EXTREMITIES: No cyanosis, or edema. NEUROLOGICAL: Awake, alert, and oriented x 3. Non-focal. Laboratory Date/Time Source Procedure Growth Status 06/11/17 19:30 Blood Peripheral Aerobic Blood Culture - Final NO GROWTH IN 5 DAYS Complete 06/11/17 19:30 Blood Peripheral Anaerobic Blood Culture - Final NO GROWTH IN 5 DAYS Complete 06/12/17 10:20 Nasal Aspirate Influenza Types A,B Antigen (JOLLY) - Final NEGATIVE FOR FLU A AND B ANTIGEN.... Complete 06/12/17 10:36 Urine Catheterized Urine Legionella Antigen - Final PRESUMPTIVE NEGATIVE FOR LEGIONELLA P... Complete 06/12/17 10:36 Urine Catheterized Urine Streptococcus pneumoniae Antigen (M - Final PRESUMPTIVE NEGATIVE FOR STREPTOCOCCU... Complete Imaging Last Impressions Chest X-Ray 06/17/17 0600 Signed Impressions: Service Date/Time: Saturday, June 17, 2017 04:11 - CONCLUSION: Stable appearance to small right pleural effusion and non-consolidative infiltrate left lower lung. Jose Loaiza MD Lower Extremity Ultrasound 06/12/17 0000 Signed Impressions: Service Date/Time: Monday, June 12, 2017 14:23 - CONCLUSION: No DVT in either lower extremity. Jose L Rodríguez MD CT Angiography 06/12/17 0000 Signed Impressions: Service Date/Time: Monday, June 12, 2017 11:42 - CONCLUSION: 1. No evidence of acute pulmonary embolism. 2. Bibasilar airway disease with bilateral subsegmental air space disease. 3. Emphysematous chronic obstructive pulmonary disease. 4. Cardiomegaly. 5. Ascites identified in the abdomen. Franklin Ibanez MD Assessment and Plan Problem List: (1) Atrial flutter with rapid ventricular response ICD Codes: I48.92 - Unspecified atrial flutter Plan: Sinus tachycardia on tele s/p atrial flutter ablation. Continue eliquis and amiodarone. F/U with Dr. North in 3 weeks per my d/w him. (2) Morbid obesity ICD Codes: E66.01 - Morbid (severe) obesity due to excess calories Plan: Continue heart healthy diet. (3) CHF (congestive heart failure) ICD Codes: I50.9 - Congestive heart failure Status: Chronic Plan: EF 30-35% with moderate tricuspid regurgitation. Stable on meds. Assessment and Plan Assessment and plan discussed with patient, RN and Dr. North. Problem Qualifiers (1) CHF (congestive heart failure): Sisi Joyce Jun 19, 2017 08:31
--- NOTE | 2017-06-19 10:22 | HHI.FPPN ---
Subjective Remarks tachy incr abdom distension d/w RN Objective Vitals Vital Signs Date Time Temp Pulse Resp B/P (MAP) Pulse Ox O2 Delivery O2 Flow Rate FiO2 06/19/17 09:00 109 06/19/17 08:31 91 Nasal Cannula 2.00 06/19/17 08:00 97.9 109 18 172/92 (118) 06/19/17 08:00 97.7 109 18 172/92 (118) 97 06/19/17 08:00 110 06/19/17 07:32 97 Nasal Cannula 2.50 06/19/17 07:29 97.7 109 18 172/92 (118) 97 06/19/17 07:00 106 06/19/17 06:01 108 06/19/17 05:00 112 06/19/17 04:00 99 06/19/17 03:58 20 06/19/17 03:00 94 Nasal Cannula 3.00 06/19/17 03:00 97.4 99 155/80 (105) 94 06/19/17 03:00 104 06/19/17 02:33 18 06/19/17 02:00 108 06/19/17 01:00 112 06/19/17 00:00 108 06/18/17 23:00 97.8 106 154/67 (96) 96 06/18/17 23:00 96 Nasal Cannula 4.00 06/18/17 23:00 106 06/18/17 22:00 110 06/18/17 21:00 106 06/18/17 20:43 92 Nasal Cannula 4.00 06/18/17 20:00 97.4 100 151/74 (99) 96 06/18/17 20:00 96 Nasal Cannula 4.00 06/18/17 17:00 93 06/18/17 16:03 21 06/18/17 16:00 85 06/18/17 15:15 85 06/18/17 15:00 100 20 128/64 (85) 100 06/18/17 15:00 99 06/18/17 15:00 100 Nasal Cannula 4.00 06/18/17 14:00 133 06/18/17 13:00 126 06/18/17 12:03 140 134/80 06/18/17 12:00 140 06/18/17 11:00 126 22 134/80 (98) 96 06/18/17 11:00 123 06/18/17 11:00 96 Nasal Cannula 4.00 Humidified I/O 06/18/17 06/18/17 06/18/17 06/19/17 06/19/17 06/19/17 07:00 15:00 23:00 07:00 15:00 23:00 Intake Total 885 ml 610 ml 1320 ml Output Total 2550 ml 1100 ml 1150 ml Balance -1665 ml -490 ml 170 ml Intake Oral 760 ml 360 ml 1320 ml IV Total 125 ml 250 ml Output Urine Total 2550 ml 1100 ml 1150 ml # Bowel Movements 0 Result Diagram: 06/17/17 0415 06/17/17 0415 Objective Remarks GENERAL: SKIN: Warm and dry. HEAD: Atraumatic. Normocephalic. EYES: Pupils equal and round. No scleral icterus. No injection or drainage. ENT: No nasal bleeding or discharge. Mucous membranes pink and moist. NECK: Trachea midline. No JVD. CARDIOVASCULAR: IRR IRR, RESPIRATORY: B Rales and ronchi, tachypneic GASTROINTESTINAL: Abdomen soft, non-tender, nondistended. Hepatic and splenic margins not palpable. MUSCULOSKELETAL: 3 + edema. No obvious deformities. NEUROLOGICAL: Awake and alert. No obvious cranial nerve deficits. Motor grossly within normal limits. Five out of 5 muscle strength in the arms and legs. Normal speech. PSYCHIATRIC: Appropriate mood and affect; insight and judgment normal. Medications and IVs Current Medications Medications (Trade) Dose Ordered Sig/Whit Route Start Time Stop Time Status Last Admin (Ambien) 5 mg HS PRN PO 06/11/17 21:00 (Narcan Inj) 0.4 mg UNSCH PRN IV PUSH 06/11/17 21:00 (Milk Of Magnesia Liq) 30 ml Q12H PRN PO 06/11/17 21:00 06/17/17 14:26 (Ativan) 0.5 mg Q8H PRN PO 06/11/17 21:00 (Catapres) 0.1 mg Q6H PRN PO 06/11/17 21:00 (Lasix Inj) 40 mg BID@,18 IV PUSH 06/12/17 09:00 06/19/17 08:18 (Albuterol Neb) 2.5 mg Q2HR NEB PRN NEB 06/12/17 09:45 06/12/17 10:25 (Wellbutrin) 100 mg DAILY PO 06/13/17 09:00 06/19/17 08:20 (Apresoline) 25 mg TID PO 06/12/17 13:00 06/19/17 08:19 (Imdur) 30 mg DAILY PO 06/13/17 09:00 06/19/17 08:19 (Lyrica) 50 mg DAILY PO 06/13/17 09:00 06/19/17 08:20 (NS Flush) 2 ml UNSCH PRN IV FLUSH 06/12/17 13:00 (NS Flush) 2 ml BID IV FLUSH 06/12/17 21:00 06/19/17 08:21 (Tylenol) 650 mg Q6H PRN PO 06/12/17 13:00 (Protonix) 40 mg DAILY PO 06/13/17 09:00 06/19/17 08:20 (Zofran Inj) 4 mg Q6H PRN IV PUSH 06/12/17 13:00 Miscellaneous Information 1 Q361D XX 06/12/17 09:45 (Chlorhexidine 2% Cloth) Taper DAILY@04 TOP 06/13/17 04:00 06/09/18 03:59 06/17/17 04:00 (Chlorhexidine 2% Cloth) 3 pack UNSCH PRN TOP 06/12/17 09:45 (Amira-Colace) 1 tab BID PO 06/12/17 21:00 06/19/17 08:19 (Milk Of Magnesia Liq) 30 ml Q12H PRN PO 06/12/17 13:00 (Senokot) 17.2 mg Q12H PRN PO 06/12/17 13:15 (Dulcolax Supp) 10 mg DAILY PRN RECTAL 06/12/17 09:45 (Lactulose Liq) 30 ml DAILY PRN PO 06/12/17 09:45 Potassium Chloride 100 ml @ 50 mls/hr Q2H PRN IV 06/12/17 09:45 Potassium Chloride 100 ml @ 50 mls/hr Q2H PRN IV 06/12/17 09:45 (K-Lyte Cl Eff) 50 meq UNSCH PRN PO 06/12/17 09:45 Potassium Chloride 100 ml @ 25 mls/hr UNSCH PRN IV 06/12/17 09:45 Potassium Chloride 100 ml @ 50 mls/hr Q2H PRN IV 06/12/17 09:45 Magnesium Sulfate 4 gm/Sodium Chloride 100 ml @ 50 mls/hr UNSCH PRN IV 06/12/17 09:45 (Mag-Ox) 800 mg UNSCH PRN PO 06/12/17 09:45 Magnesium Sulfate 2 gm/Sodium Chloride 100 ml @ 50 mls/hr UNSCH PRN IV 06/12/17 09:45 (K-Phos) 2,000 mg Q4H PRN PO 06/12/17 09:45 Sodium Phosphate 30 mmol/Sodium Chloride 250 ml @ 42 mls/hr UNSCH PRN IV 06/12/17 09:45 (K-Phos) 2,000 mg UNSCH PRN PO/TUBE 06/12/17 09:45 Potassium Phosphate 30 mmol/ Sodium Chloride 260 ml @ 42 mls/hr UNSCH PRN IV 06/12/17 09:45 (D50w (Vial) Inj) 50 ml UNSCH PRN IV PUSH 06/12/17 09:45 (Glucagon Inj) 1 mg UNSCH PRN OTHER 06/12/17 13:00 Levofloxacin/ Dextrose 150 ml @ 100 mls/hr Q24H IV 06/12/17 14:00 06/18/17 14:27 (NovoLOG SUPPLEMENTAL SCALE) 1 ACHS AND 3AM SQ 06/13/17 12:00 06/19/17 03:53 (Morphine Inj) 4 mg Q3H PRN IV PUSH 06/13/17 09:45 06/19/17 08:19 (Morphine Inj) 2 mg Q3H PRN IV PUSH 06/13/17 09:45 06/18/17 09:17 (KCl) 10 meq Q12HR PO 06/13/17 21:00 06/19/17 08:20 (Nitroglycerin 2% Oint) 1 inch Q6HR PRN TOPICAL 06/15/17 08:30 (Cardizem Cd) 300 mg DAILY PO 06/16/17 09:00 06/19/17 08:20 (SoluMEDROL INJ) 60 mg Q12H IV PUSH 06/16/17 18:00 06/19/17 06:13 (Duoneb Neb) 1 ampule Q4HR NEB NEB 06/16/17 12:00 3/6/18 08:30 (Symbicort 80-4.5 Mcg Inh) 2 puff Q12HR INH 06/16/17 21:00 06/19/17 08:19 (Levemir Inj) 85 units Q12HR SQ 06/17/17 21:00 06/19/17 08:19 (Percocet 5-325 Mg) 1 tab Q4H PRN PO 06/18/17 19:45 (Percocet 5-325 Mg) 2 tab Q4H PRN PO 06/18/17 19:45 06/19/17 06:13 (Ativan Inj) 0.5 mg UNSCH PRN IV PUSH 06/18/17 19:45 06/19/17 19:44 (Atropine Inj) 0.5 mg UNSCH PRN IV PUSH 06/18/17 19:45 Sodium Chloride 250 ml @ 500 mls/hr ONCE PRN IV 06/18/17 19:45 06/19/17 19:44 (Zofran Inj) 4 mg Q4H PRN IV PUSH 06/18/17 19:45 (Xylocaine 1% Inj (50 ml)) 10 ml UNSCH PRN INFIL 06/18/17 19:45 06/19/17 19:44 (Eliquis) 5 mg BID PO 06/18/17 21:15 06/19/17 08:20 (Cordarone) 400 mg Q12HR PO 06/18/17 21:15 06/23/17 09:01 06/19/17 08:20 (Cordarone) 200 mg DAILY PO 06/24/17 09:00 A/P Assessment and Plan Assessment and Plan Neuro/Psych: Seizure disorder NOS Chronic pain syndrome History of THC use Depression Acetaminophen 650 mg p.o. every 6 hours as needed fever Hydrocodone/acetaminophen 7.5/325 1 tablet every 4 hours as needed pain 1-5 Morphine sulfate 2 mg IV every 3 hours as needed pain 6-10 with 3 mg IV every 3 years. For breakthrough pain Continue pregabalin 50 mg once a daily and bupropion 100 mg once a daily/home medications for depression Patient is on tramadol 50 mg every 4 hours as needed pain at home CV: Elevated troponin Nonobstructive coronary disease History of hypertension Dyslipidemia Atrial fibrillation with rapid ventricular response Currently on enoxaparin 120 mg subcu twice daily off Diltiazem drip at 5 mg an hour for rate control Started on diltiazem CD 300 mg p.o. daily. Increased to 420 mg p.o. daily 06/16 Troponin 0.11 decrease to 0.06 to 0.05. Cardiology/Dr. Chaney has seen and evaluated the patient and recommended medical management Evaluated by Dr. North. Ablation done. 2D echocardiogram august 2016 revealed EF 55-60%. No regional wall motion abnormality. On furosemide 40 milligrams iv twice daily Patient is on hydralazine 25 mg 3 times daily and isosorbide mononitrate 30 mg daily at home. Continue Patient is on spironolactone 100 mg twice daily home. This has been held while on furosemide Patient has an aspirin 81 mg daily. This was held by cardiology secondary to bleeding risk while on enoxaparin = Patient on 420 mg of diltiazem daily. Resp: Acute hypoxemic respiratory failure Chronic respiratory insufficiency/COPD 2 L oxygen dependent Ongoing tobacco abuse Nasal cannula 4 L titrated to maintain saturations greater than or equal to 88 percent Incentive spirometry while awake Albuterol/ipratropium aerosols every 4 hours with albuterol aerosols every 2 hours. Dyspnea Resumed fluticasone/salmeterol 250/50 1 inhalation twice daily Methylprednisolone succinate 60 mg IV every 12 hours Patient is on albuterol/ipratropium aerosols every 4 hours as needed home along with albuterol aerosols every 4 hours as needed dyspnea Negative CT pulmonary angiogram for central PE. Emphysematous changes. Possible diffuse infiltrative process Tobacco cessation self-education booklet will be provided GI: Gastroesophageal reflux disease Chronic constipation Hypoalbuminemia Patient is currently on diabetic diet 2500 kcal with snacks.. Pantoprazole 40 mg daily for GI prophylaxis. Patient is on omeprazole 40 mg daily at home Docusate sodium/senna 1 tablet twice daily for bowel regimen Patient is on senna as an outpatient : Mcclendon catheter if indicated for accurate I's and O's in a critically ill patient Endo: Diabetes mellitus Sliding scale insulin with Novulog with Accu-Cheks to maintain euglycemia/high regimen before meals/at bedtime. 100 units sliding scale insulin past 24 hours Holding insulin glargine 80 units subcu twice daily. Start on insulin detemir 80 units subcu twice daily. = Glucose still elevated in the 200s. Increase Levemir. Renal: Creatinine currently close to normal limits Monitor urine output Accurate I's and O's Recheck BMP in a.m. Heme: Microcytic hypochromic anemia Patient has not had an EGD or colonoscopy done Does not meet transfusion threshold at the time We will check Hemoccult stool and iron studies 1 while on enoxaparin ID: [id number] Currently levofloxacin and 1 dose vancomycin for community acquired pneumonia/sepsis 06/12 blood cultures 2, sputum and influenza no growth to date/negative. Sputum not performed. MSK: Elevated BMI Weight loss encouraged PT evaluate and treat FEN: Hyponatremia Replace electrolytes as clinically indicated Access -Utilize peripheral IV. Central line if indicated Prophylaxis -GI -pantoprazole -DVT -SCD/enoxaparen Discharge Planning Pending Jozef Gilliland MD Jun 19, 2017 10:22
[2017-06-19] MEDS ORDERED: MAGNESIUM CITRATE SOLN 300 ML BTL PO ONE (12:45)
[2017-06-19] MEDS: LEVOFLOXACIN 750 MG PREMIX INJ 150 ML IV SCH (13:15)
--- NOTE | 2017-06-19 18:18 | HHI.PR ---
Subjective Remarks 57 YOWM with COPD.JEFF,A.Flutter, Nicotine use Did't use CPAP Up in chair Breathing much better Had A. flutter ablation done Objective Vital Signs Vital Signs Date Time Temp Pulse Resp B/P (MAP) Pulse Ox O2 Delivery O2 Flow Rate FiO2 06/19/17 16:32 94 2.50 06/19/17 15:11 97.7 93 19 148/78 (101) 96 06/19/17 14:00 94 06/19/17 13:00 96 06/19/17 12:40 102 18 167/73 (104) 93 06/19/17 12:40 110 06/19/17 12:33 20 06/19/17 12:00 102 06/19/17 11:12 93 2.50 06/19/17 11:00 98.0 102 20 167/73 (104) 93 06/19/17 11:00 106 06/19/17 10:00 104 06/19/17 10:00 111 06/19/17 09:00 109 06/19/17 08:31 91 Nasal Cannula 2.00 06/19/17 08:00 97.9 109 18 172/92 (118) 06/19/17 08:00 97.7 109 18 172/92 (118) 97 06/19/17 08:00 110 06/19/17 07:32 97 Nasal Cannula 2.50 06/19/17 07:29 97.7 109 18 172/92 (118) 97 06/19/17 07:00 106 06/19/17 07:00 102 06/19/17 06:01 108 06/19/17 05:00 112 06/19/17 04:00 99 06/19/17 03:58 20 06/19/17 03:00 94 Nasal Cannula 3.00 06/19/17 03:00 97.4 99 155/80 (105) 94 06/19/17 03:00 104 06/19/17 02:00 108 06/19/17 01:00 112 06/19/17 00:00 108 06/18/17 23:00 97.8 106 154/67 (96) 96 06/18/17 23:00 96 Nasal Cannula 4.00 06/18/17 23:00 106 06/18/17 22:00 110 3/5/18 21:00 106 06/18/17 20:43 92 Nasal Cannula 4.00 06/18/17 20:00 97.4 100 151/74 (99) 96 06/18/17 20:00 96 Nasal Cannula 4.00 I/O 06/18/17 06/18/17 06/18/17 06/19/17 06/19/17 06/19/17 07:00 15:00 23:00 07:00 15:00 23:00 Intake Total 885 ml 610 ml 1320 ml Output Total 2550 ml 1100 ml 1150 ml Balance -1665 ml -490 ml 170 ml Intake Oral 760 ml 360 ml 1320 ml IV Total 125 ml 250 ml Output Urine Total 2550 ml 1100 ml 1150 ml # Bowel Movements 0 Result Diagram: 06/17/17 0415 06/17/17 0415 Objective Remarks GENERAL: Obese WM, mild sob SKIN: Warm and dry. HEAD: Normocephalic. EYES: No scleral icterus. No injection or drainage. NECK: Supple, trachea midline. No JVD or lymphadenopathy. CARDIOVASCULAR: Regular rate and rhythm without murmurs, gallops, or rubs. RESPIRATORY: Breath sounds equal bilaterally. No accessory muscle use. GASTROINTESTINAL: Abdomen soft, non-tender, nondistended. MUSCULOSKELETAL: No cyanosis, ++ edema. BACK: Nontender without obvious deformity. No CVA tenderness. A/P Assessment and Plan Hypercapnoic RF COPD Exac JEFF A.Flutter Hyperglycemia Nicotine use PLAN: Aerosol nebs Cont ABX Cardiazem drip for rate controll 02 to keep sat 88-92% PO Steroids DW Ankit Allan MD Jun 19, 2017 18:18
--- NOTE | 2017-06-19 19:03 | EKG ---
Date Performed: 06/19/2017 Time Performed: 05:00:52 PTAGE: 57 years EKG: Sinus tachycardia Anterior T wave changes are nonspecific Borderline ECG Since the prior tr acing, there has been no significant change PREVIOUS TRACING : 06/18/2017 21.51 DOCTOR: Victoriano Chaney Interpretating Date/Time 06/19/2017 19:02:15
[2017-06-19] MEDS: MORPHINE SULFATE 2 MG/ML INJ IV PUSH PRN (22:06)
[2017-06-20] VITALS (18 sets, daily range): BP systolic 163–171; BP diastolic 76–81; PULSE 90–110; RESP 18; TEMP 97.3–98.8; O2SAT 95–97
[2017-06-20] MEDS: RESP: ALBUTEROL 2.5 MG/IPRATROPIUM 0.5 MG NEB (SCH) NEB ×3 (00:26→11:39)
[2017-06-20] MEDS: oxyCODONE/ACETAMINOPHEN 5 MG/325 MG TAB PO PRN ×3 (00:49→11:14)
[2017-06-20] MEDS: CHLORHEXIDINE GLUCONATE 2 % 1 PACK (2 CLOTHS) TOP SCH (04:00)
[2017-06-20] MEDS: INSULIN ASPART SUPPLEMENTAL SCALE SQ SCH ×3 (04:09→12:00)
[2017-06-20] MEDS: MORPHINE SULFATE 2 MG/ML INJ IV PUSH PRN ×2 (04:10→08:15)
[2017-06-20] MEDS: MAGNESIUM HYDROXIDE SUSP 30 ML CUP PO PRN (04:29)
[2017-06-20] MEDS: methylPREDNISolone SOD SUCC 125 MG/2 ML VIAL IV PUSH SCH (06:15)
--- NOTE | 2017-06-20 07:05 | EKG ---
Date Performed: 06/18/2017 Time Performed: 21:51:08 PTAGE: 57 years EKG: Sinus tachycardia rSr'(V1) - probable normal variant Poor R wave progression - probable nor mal variant Septal T wave changes are nonspecific Low QRS voltages in precordial leads Borderline ECG Compared to PREVIOUS TRACING , the patient is no longer in atrial flutter. PREVIOUS TRACIN06/12/19 18 10.47 DOCTOR: Victoriano Chaney Interpretating Date/Time 06/20/2017 07:04:18
[2017-06-20] MEDS: INSULIN DETEMIR 100 UNITS/ML VIAL SQ SCH (09:00)
[2017-06-20] MEDS: BUDESONIDE-FORMOTEROL 80/4.5 MCG INHALER INH SCH (09:08)
[2017-06-20] MEDS: PREGABALIN 25 MG CAP PO SCH (09:08)
[2017-06-20] MEDS: DOCUSATE SODIUM 50 MG/SENNA 8.6 MG TAB PO SCH (09:09)
[2017-06-20] MEDS: hydrALAZINE HCL 25 MG TAB PO SCH ×2 (09:09→12:50)
[2017-06-20] MEDS: AMIODARONE 200 MG TAB PO SCH (09:09)
[2017-06-20] MEDS: buPROPion HCL 100 MG TAB PO SCH (09:10)
[2017-06-20] MEDS: DILTIAZEM-CD 300 MG CAP ER PO SCH (09:10)
[2017-06-20] MEDS: APIXABAN 5 MG TABLET PO SCH (09:10)
[2017-06-20] MEDS: POTASSIUM CHLORIDE 10 MEQ CONTROLLED RELEASE TAB PO SCH (09:11)
[2017-06-20] MEDS: ISOSORBIDE MONONITRATE 30 MG CR TAB (IMDUR) PO SCH (09:11)
[2017-06-20] MEDS: PANTOPRAZOLE SOD 40 MG DELAYED RELEASE TAB PO SCH (09:11)
[2017-06-20] MEDS: SODIUM CHLORIDE 0.9% FLUSH 10 ML FLUSH IV FLUSH SCH (09:12)
[2017-06-20] MEDS: FUROSEMIDE 40 MG/4 ML VIAL IV PUSH SCH (09:12)
--- NOTE | 2017-06-20 10:45 | HHI.FPPN ---
Objective Vitals Vital Signs Date Time Temp Pulse Resp B/P (MAP) Pulse Ox O2 Delivery O2 Flow Rate FiO2 06/20/17 10:23 104 06/20/17 09:34 105 06/20/17 08:27 93 06/20/17 08:15 97 Nasal Cannula 2.00 06/20/17 08:14 98.8 93 18 168/80 (109) 97 06/20/17 07:35 96 Nasal Cannula 2.00 06/20/17 07:01 91 06/20/17 06:02 98 06/20/17 05:00 92 06/20/17 04:24 20 06/20/17 04:00 96 06/20/17 03:00 97.3 100 171/81 (111) 95 06/20/17 03:00 92 06/20/17 03:00 95 Nasal Cannula 2.00 06/20/17 02:00 98 06/20/17 01:50 20 06/20/17 01:00 96 06/20/17 00:00 90 06/19/17 23:00 92 06/19/17 23:00 94 Nasal Cannula 2.00 06/19/17 23:00 97.6 98 159/74 (102) 94 06/19/17 22:00 90 06/19/17 21:00 88 06/19/17 20:00 86 06/19/17 19:16 Nasal Cannula 2.00 06/19/17 19:00 94 Nasal Cannula 2.00 06/19/17 19:00 97.6 98 159/74 (102) 94 06/19/17 19:00 85 06/19/17 16:32 94 2.50 06/19/17 15:11 97.7 93 19 148/78 (101) 96 06/19/17 14:00 94 06/19/17 13:00 96 06/19/17 12:40 102 18 167/73 (104) 93 06/19/17 12:40 110 06/19/17 12:00 102 06/19/17 11:12 93 2.50 06/19/17 11:00 98.0 102 20 167/73 (104) 93 06/19/17 11:00 106 I/O 06/19/17 06/19/17 06/19/17 06/20/17 06/20/17 06/20/17 07:00 15:00 23:00 07:00 15:00 23:00 Intake Total 1320 ml 1200 ml 960 ml Output Total 1150 ml 1800 ml 2050 ml Balance 170 ml -600 ml -1090 ml Intake Oral 1320 ml 1200 ml 960 ml Output Urine Total 1150 ml 1800 ml 2050 ml Result Diagram: 06/17/17 0415 06/17/17 0415 Objective Remarks GENERAL: SKIN: Warm and dry. HEAD: Atraumatic. Normocephalic. EYES: Pupils equal and round. No scleral icterus. No injection or drainage. ENT: No nasal bleeding or discharge. Mucous membranes pink and moist. NECK: Trachea midline. No JVD. CARDIOVASCULAR: IRR IRR, RESPIRATORY: B Rales and ronchi, tachypneic GASTROINTESTINAL: Abdomen soft, non-tender, nondistended. Hepatic and splenic margins not palpable. MUSCULOSKELETAL: 3 + edema. No obvious deformities. NEUROLOGICAL: Awake and alert. No obvious cranial nerve deficits. Motor grossly within normal limits. Five out of 5 muscle strength in the arms and legs. Normal speech. PSYCHIATRIC: Appropriate mood and affect; insight and judgment normal. A/P Assessment and Plan Assessment and Plan Neuro/Psych: Seizure disorder NOS Chronic pain syndrome History of THC use Depression Acetaminophen 650 mg p.o. every 6 hours as needed fever Hydrocodone/acetaminophen 7.5/325 1 tablet every 4 hours as needed pain 1-5 Morphine sulfate 2 mg IV every 3 hours as needed pain 6-10 with 3 mg IV every 3 years. For breakthrough pain Continue pregabalin 50 mg once a daily and bupropion 100 mg once a daily/home medications for depression Patient is on tramadol 50 mg every 4 hours as needed pain at home CV: Elevated troponin Nonobstructive coronary disease History of hypertension Dyslipidemia Atrial fibrillation with rapid ventricular response Currently on enoxaparin 120 mg subcu twice daily off Diltiazem drip at 5 mg an hour for rate control Started on diltiazem CD 300 mg p.o. daily. Increased to 420 mg p.o. daily 06/16 Troponin 0.11 decrease to 0.06 to 0.05. Cardiology/Dr. Chaney has seen and evaluated the patient and recommended medical management Evaluated by Dr. North. Ablation done. 2D echocardiogram august 2016 revealed EF 55-60%. No regional wall motion abnormality. On furosemide 40 milligrams iv twice daily Patient is on hydralazine 25 mg 3 times daily and isosorbide mononitrate 30 mg daily at home. Continue Patient is on spironolactone 100 mg twice daily home. This has been held while on furosemide Patient has an aspirin 81 mg daily. This was held by cardiology secondary to bleeding risk while on enoxaparin = Patient on 420 mg of diltiazem daily. Resp: Acute hypoxemic respiratory failure Chronic respiratory insufficiency/COPD 2 L oxygen dependent Ongoing tobacco abuse Nasal cannula 4 L titrated to maintain saturations greater than or equal to 88 percent Incentive spirometry while awake Albuterol/ipratropium aerosols every 4 hours with albuterol aerosols every 2 hours. Dyspnea Resumed fluticasone/salmeterol 250/50 1 inhalation twice daily Methylprednisolone succinate 60 mg IV every 12 hours Patient is on albuterol/ipratropium aerosols every 4 hours as needed home along with albuterol aerosols every 4 hours as needed dyspnea Negative CT pulmonary angiogram for central PE. Emphysematous changes. Possible diffuse infiltrative process Tobacco cessation self-education booklet will be provided GI: Gastroesophageal reflux disease Chronic constipation Hypoalbuminemia Patient is currently on diabetic diet 2500 kcal with snacks.. Pantoprazole 40 mg daily for GI prophylaxis. Patient is on omeprazole 40 mg daily at home Docusate sodium/senna 1 tablet twice daily for bowel regimen Patient is on senna as an outpatient : Mcclendon catheter if indicated for accurate I's and O's in a critically ill patient Endo: Diabetes mellitus Sliding scale insulin with Novulog with Accu-Cheks to maintain euglycemia/high regimen before meals/at bedtime. 100 units sliding scale insulin past 24 hours Holding insulin glargine 80 units subcu twice daily. Start on insulin detemir 80 units subcu twice daily. = Glucose still elevated in the 200s. Increase Levemir. Renal: Creatinine currently close to normal limits Monitor urine output Accurate I's and O's Recheck BMP in a.m. Heme: Microcytic hypochromic anemia Patient has not had an EGD or colonoscopy done Does not meet transfusion threshold at the time We will check Hemoccult stool and iron studies 1 while on enoxaparin ID: [id number] Currently levofloxacin and 1 dose vancomycin for community acquired pneumonia/sepsis 06/12 blood cultures 2, sputum and influenza no growth to date/negative. Sputum not performed. MSK: Elevated BMI Weight loss encouraged PT evaluate and treat FEN: Hyponatremia Replace electrolytes as clinically indicated Access -Utilize peripheral IV. Central line if indicated Prophylaxis -GI -pantoprazole -DVT -SCD/enoxaparen Discharge Planning Pending Jozef Gilliland MD Jun 20, 2017 10:45
[2017-06-20] MEDS ORDERED: APIX5TAB PO (11:06)
[2017-06-20] MEDS ORDERED: HYDR-3366 PO (11:06)
[2017-06-20] MEDS ORDERED: AMIO200T PO (11:06)
[2017-06-20] MEDS ORDERED: SPIR25TA PO (11:11)
[2017-06-20] MEDS ORDERED: FURO1TAB60 PO (11:11)
--- NOTE | 2017-06-20 11:12 | HHI.DS ---
Discharge Summary Admission Date Jun 11, 2017 at 21:00 Discharge Date: Jun 20, 2017 Admitting Diagnosis ACS; A flutter w/ rvr; chf; exac copd; dm (1) Respiratory distress ICD Codes: R06.00 - Dyspnea, unspecified Status: Acute (2) Esophageal reflux ICD Codes: K21.9 - Esophageal reflux Status: Acute (3) Acute exacerbation of chronic obstructive pulmonary disease (COPD) ICD Codes: J44.1 - Chronic obstructive pulmonary disease with (acute) exacerbation Status: Acute (4) Obesity ICD Codes: E66.9 - Obesity, unspecified Status: Acute (5) Atrial flutter with rapid ventricular response ICD Codes: I48.92 - Unspecified atrial flutter (6) Tobacco abuse ICD Codes: Z72.0 - Tobacco abuse Status: Chronic (7) Morbid obesity ICD Codes: E66.01 - Morbid (severe) obesity due to excess calories (8) Pickwickian syndrome ICD Codes: E66.2 - Morbid (severe) obesity with alveolar hypoventilation CBC/BMP: 06/17/17 0415 06/17/17 0415 PE at Discharge GENERAL: SKIN: Warm and dry. HEAD: Atraumatic. Normocephalic. EYES: Pupils equal and round. No scleral icterus. No injection or drainage. ENT: No nasal bleeding or discharge. Mucous membranes pink and moist. NECK: Trachea midline. No JVD. CARDIOVASCULAR: Regular rate and rhythm. RESPIRATORY: No accessory muscle use. Clear to auscultation. Breath sounds equal bilaterally. GASTROINTESTINAL: Abdomen soft, non-tender, nondistended. Hepatic and splenic margins not palpable. MUSCULOSKELETAL: Extremities without clubbing, cyanosis, or edema. No obvious deformities. NEUROLOGICAL: Awake and alert. No obvious cranial nerve deficits. Motor grossly within normal limits. Five out of 5 muscle strength in the arms and legs. Normal speech. PSYCHIATRIC: Appropriate mood and affect; insight and judgment normal. Hospital Course Assessment and Plan Neuro/Psych: Seizure disorder NOS Chronic pain syndrome History of THC use Depression Acetaminophen 650 mg p.o. every 6 hours as needed fever Hydrocodone/acetaminophen 7.5/325 1 tablet every 4 hours as needed pain 1-5 Morphine sulfate 2 mg IV every 3 hours as needed pain 6-10 with 3 mg IV every 3 years. For breakthrough pain Continue pregabalin 50 mg once a daily and bupropion 100 mg once a daily/home medications for depression Patient is on tramadol 50 mg every 4 hours as needed pain at home CV: Elevated troponin Nonobstructive coronary disease History of hypertension Dyslipidemia Atrial fibrillation with rapid ventricular response Currently on enoxaparin 120 mg subcu twice daily off Diltiazem drip at 5 mg an hour for rate control Started on diltiazem CD 300 mg p.o. daily. Increased to 420 mg p.o. daily 06/16 Troponin 0.11 decrease to 0.06 to 0.05. Cardiology/Dr. Chaney has seen and evaluated the patient and recommended medical management Evaluated by Dr. North. Ablation done. 2D echocardiogram august 2016 revealed EF 55-60%. No regional wall motion abnormality. On furosemide 40 milligrams iv twice daily Patient is on hydralazine 25 mg 3 times daily and isosorbide mononitrate 30 mg daily at home. Continue Patient is on spironolactone 100 mg twice daily home. This has been held while on furosemide Patient has an aspirin 81 mg daily. This was held by cardiology secondary to bleeding risk while on enoxaparin = Patient on 420 mg of diltiazem daily. Resp: Acute hypoxemic respiratory failure Chronic respiratory insufficiency/COPD 2 L oxygen dependent Ongoing tobacco abuse Nasal cannula 4 L titrated to maintain saturations greater than or equal to 88 percent Incentive spirometry while awake Albuterol/ipratropium aerosols every 4 hours with albuterol aerosols every 2 hours. Dyspnea Resumed fluticasone/salmeterol 250/50 1 inhalation twice daily Methylprednisolone succinate 60 mg IV every 12 hours Patient is on albuterol/ipratropium aerosols every 4 hours as needed home along with albuterol aerosols every 4 hours as needed dyspnea Negative CT pulmonary angiogram for central PE. Emphysematous changes. Possible diffuse infiltrative process Tobacco cessation self-education booklet will be provided GI: Gastroesophageal reflux disease Chronic constipation Hypoalbuminemia Patient is currently on diabetic diet 2500 kcal with snacks.. Pantoprazole 40 mg daily for GI prophylaxis. Patient is on omeprazole 40 mg daily at home Docusate sodium/senna 1 tablet twice daily for bowel regimen Patient is on senna as an outpatient : Mcclendon catheter if indicated for accurate I's and O's in a critically ill patient Endo: Diabetes mellitus Sliding scale insulin with Novulog with Accu-Cheks to maintain euglycemia/high regimen before meals/at bedtime. 100 units sliding scale insulin past 24 hours Holding insulin glargine 80 units subcu twice daily. Start on insulin detemir 80 units subcu twice daily. = Glucose still elevated in the 200s. Increase Levemir. Renal: Creatinine currently close to normal limits Monitor urine output Accurate I's and O's Recheck BMP in a.m. Heme: Microcytic hypochromic anemia Patient has not had an EGD or colonoscopy done Does not meet transfusion threshold at the time We will check Hemoccult stool and iron studies 1 while on enoxaparin ID: [id number]- Currently levofloxacin and 1 dose vancomycin for community acquired pneumonia/sepsis 06/12 blood cultures 2, sputum and influenza no growth to date/negative. Sputum not performed. MSK: Elevated BMI Weight loss encouraged PT evaluate and treat FEN: Hyponatremia Replace electrolytes as clinically indicated Access -Utilize peripheral IV. Central line if indicated Prophylaxis -GI -pantoprazole -DVT -SCD/enoxaparen Discharge Pt Condition on Discharge: Stable Discharge Disposition: Disch w/ Home Health Serv Discharge Instructions DIET: Follow Instructions for: Heart Healthy Diet, Diabetic Diet Activities you can perform: Regular-No Restrictions Follow up Referrals: Cardiology - 2-3 Days with Ramón North MD PCP Follow-up - 2-3 Days New Orders: BASIC METABOLIC PROF - 2-3 Days New Medications: Furosemide (Lasix) 40 Mg Tab 40 MG PO BID for chf, #60 TAB 10 Refills Hydrocodone-Acetaminophen ([place]) 10-325 Mg Tab 1 TAB PO Q4H PRN for PAIN, #15 TAB 0 Refills Spironolactone (Spironolactone) 25 Mg Tab 25 MG PO BIDPC for chf, #60 TAB 10 Refills Amiodarone (Amiodarone) 200 Mg Tab 400 MG PO Q12HR for af, #60 TAB 10 Refills Apixaban (Eliquis) 5 Mg Tab 5 MG PO BID for af, #60 TAB 10 Refills Continued Medications: Albuterol 18 GM Inh (Ventolin Hfa 18 GM Inh) 90 Mcg/Act Aer 1 PUFF INH Q4H PRN for MILD/MODERATE SOB/WHEEZING, #1 INHALER [address] (Aspirin DR) 81 Mg Tabdr 81 MG PO DAILY, TAB 0 Refills Bisacodyl Supp (Dulcolax Supp) 10 Mg Supp 10 MG RECTAL DAILY PRN for CONSTIPATION, #12 SUPP 0 Refills Bupropion HCl (Bupropion HCl) 100 Mg Tab 100 MG PO DAILY for Control Depression, TAB 0 Refills Fluticasone-Salmeterol Inh (Advair Diskus Inh) 250-50 Mcg/Blist Aer 2 PUFF INH BID, #1 INHALER 0 Refills Rinse mouth after use. Hydralazine HCl (Hydralazine HCl) 25 Mg Tablet 25 MG PO TID for Blood Pressure Management, #90 TAB 0 Refills Insulin Glargine Inj (Lantus Inj) 1,000 Unit/10 Ml Vial 80 UNITS SQ BID for Blood Sugar Management, VIAL 0 Refills Ipratropium-Albuterol Neb (Duoneb) 0.5-2.5 Mg/3 Ml Neb 1 NEBULE NEB Q4HR NEB PRN for SHORTNESS OF BREATH, #30 NEBULE 0 Refills Isosorbide Mononitrate ER (Isosorbide Mononitrate ER) 30 Mg Alex[place]ander 30 MG PO DAILY for Prevent Chest Pain, #30 TAB 0 Refills Omeprazole (Omeprazole) 20 Mg Tab 40 MG PO DAILY for gerd, #30 TAB 0 Refills Pregabalin (Lyrica) 50 Mg Cap 50 MG PO DAILY, #30 CAP 0 Refills Sennosides-Docusate Sodium (Senna S) 8.6-50 Mg Tab 1-2 TAB PO Q12HR PRN for CONSTIPATION Discontinued Medications: Spironolactone (Spironolactone) 100 Mg Tab 100 MG PO BID, #60 TAB 0 Refills Tramadol (Tramadol) 50 Mg Tab 50 MG PO Q4H PRN for PAIN, TAB 0 Refills Jozef Gilliland MD Jun 20, 2017 11:12
--- NOTE | 2017-06-20 11:12 | HHI.DCPOC ---
Discharge Care Plan Diagnosis: (1) Atrial flutter with rapid ventricular response (2) Tobacco abuse (3) CHF (congestive heart failure) (4) Morbid obesity (5) Pickwickian syndrome (6) Acute exacerbation of chronic obstructive pulmonary disease (COPD) (7) Type 2 diabetes mellitus (8) Obesity (9) Chest pain (10) Gastritis Goals to Promote Your Health * To prevent worsening of your condition and complications * To maintain your health at the optimal level Directions to Meet Your Goals Take your medications as prescribed Follow your dietary instruction Follow activity as directed Keep your appointments as scheduled Take your immunizations and boosters as scheduled If your symptoms worsen call your PCP, if no PCP go to Urgent Care Center or Emergency Room Smoking is Dangerous to Your Health. Avoid second hand smoke Call the 24-hour hour crisis hotline for domestic abuse at Jozef Gilliland MD Jun 20, 2017 11:12
--- NOTE | 2017-06-20 11:14 | HHI.FF ---
Face to Face Verification Diagnosis: (1) Acute exacerbation of chronic obstructive pulmonary disease (COPD) (2) Type 2 diabetes mellitus (3) Obesity (4) Chest pain (5) Atrial flutter with rapid ventricular response (6) Tobacco abuse (7) CHF (congestive heart failure) (8) Morbid obesity (9) Pickwickian syndrome (10) Respiratory distress (11) Esophageal reflux Physical Therapy Order: Evaluate and Treat, Improve ambulation, Strength and gait training Home Health Nursing Order: Medical education Diabetic education CHF education Oxygen administration education Medication education-adverse effect Wound care and dressing changes Nursing assessment with vital signs Telehealth Home Health Aide Order: To Assist In: Bathing and personal care, interstate bus driver and meal prep Clinical Training Coordinator Order: To Evaluate: Living conditions/environment, Support services Order: To Provide: Long range planning, Community services I have seen patient Madan Guerra on 06/20/17. My clinical findings support the need for the requested home health care services because: Ltd mobility - disease progression Patient has SOB Deconditioned w/ increased weakness Med compliance is questionable Limited ability to care for self Need for psychosocial assistance Impaired cognition/judgement High risk of falls I certify that my clinical findings support that this patient is homebound because: Post-op weakness Impaired cognitive ability/safety Hx COPD- exertion dyspnea/weakness Unsteady gait/balance Unsafe to leave home unassisted Need for psychosocial assistance Unable to use public transportation Poor cardiac reserve Jozef Gilliland MD Jun 20, 2017 11:14
[2017-06-20] MEDS ORDERED: SOD PHOSPHATE/SOD BIPHOSPHATE (ADULT) ENEMA 133ML RECTAL ONE (13:00)
[2017-06-24] MEDS ORDERED: AMIODARONE 200 MG TAB PO SCH (09:00)
--- NOTE | 2017-07-06 08:44 | MA ---
cc: Ramón North MD,Jozef Morel,Ankit Voss MD DATE: 06/18/2017 PROCEDURE PERFORMED: Electrophysiology study, CS cannulation, 3D mapping, radiofrequency ablation of atrial flutter and atrial fibrillation cardioversion. INDICATIONS: Mr. Guerra is a 57-year-old gentleman with obesity, COPD, atrial flutter, heart rate very difficult to console referred for electrophysiology study and ablation. The risks, the nature and the benefit of the procedure were clearly stated to him. Risks include pneumothorax, cardiac perforation, stroke, need for open heart surgery and even . The patient understood and agreed to proceed. DESCRIPTION OF PROCEDURE: After written informed consent was obtained, the patient was brought to the EP lab where he was prepped and draped in usual sterile fashion. Conscious sedation was initiated and maintained throughout the procedure by anesthesiologist. Once sedation verified, the right and left inguinal area was anesthetized with 2% Xylocaine. Using modified Seldinger technique, the left femoral vein was cannulated on 3 occasions and three guidewires were advanced over the wire and three 5-Emirati Hemaquets were advanced. Then the right femoral vein was cannulated on 2 occasions and 2 guidewires were advanced over the wire, a 6 and an 8-Emirati Hemaquet were advanced. Then under fluoroscopic guidance through the 5 and 6-Emirati Hemaquet, four 5-Emirati Oscar curved quadripolar electrophysiology catheters were advanced and position on the His, right atrium, coronary sinus and the right ventricular apex. The patient was in atrial flutter. The flutter, cycle length was around 230 milliseconds. Entrainment was performed. It was positive. Then through the 8-Emirati Hemaquet, a Cordis Bravo F-curve 8 mm mapping and radiofrequency ablation catheter was advanced. Using [employer] endocardial solution mapping system, a 3-dimensional configuration of the right atrium was obtained. Then, the catheter was placed at the critical isthmus. Radiofrequency energy was delivered. During ablation, the patient converted into sinus rhythm. Further burn was delivered in the area. Then the patient went into atrial fibrillation. At that point because the main issue was atrial flutter, I decided to proceed with cardioversion. A 300 sync biphasic joule was delivered that converted the patient into sinus rhythm. Then, atrial pacing protocol was performed. No tachyarrhythmia was induced. Then, ventricular pacing protocol was performed. No tachyarrhythmia was induced. At that point, the procedure was complete. All catheters were removed. The patient tolerated the procedure. BLOOD LOSS: Minimal. 1. Electrocardiogram: At baseline, the patient was in atrial flutter. Postprocedure, the patient was in sinus rhythm. 2. Basic interval: The base cycle length was around 600 milliseconds, post-ablation it was around 1020 milliseconds. 3. Tachyarrhythmia: Atrial flutter was mapped and ablated. Ablation was successful. CONCLUSION: Successful electrophysiology study, mapping, and radiofrequency ablation of atrial flutter. COMMENT AND RECOMMENDATION: The patient is going to be transferred to the telemetry unit. He will be observed and when stable, can be discharged home. Ramón North MD HS/DL , 08:09 AM , 08:42 AM
== END 2017-06-20 14:24 | disposition home health service (06) | DRG 273 ==
LOC: NEPC 18:48 → NEDA 21:00 → UNDOADMIN 21:00 → OBSVTOIN 21:00 → NEDA 21:00 → HCPC 06-12 01:17 → HCVI 06-12 06:50 → HCPC 06-18 08:35
PROVIDERS: ADMIT Family Medicine; ATTEND Family Medicine
PROC: 5A09357 Assistance with Respiratory Ventilation, Less than 24 Consecutive Hours, Continuous Positive Airway Pressure (ICD-10-PCS; 2017-06-11)
PROC: 4A0234Z Measurement of Cardiac Electrical Activity, Percutaneous Approach (ICD-10-PCS; 2017-06-18)
PROC: 4A023FZ Measurement of Cardiac Rhythm, Percutaneous Approach (ICD-10-PCS; 2017-06-18)
PROC: 02K83ZZ Map Conduction Mechanism, Percutaneous Approach (ICD-10-PCS; 2017-06-18)
PROC: 5A2204Z Restoration of Cardiac Rhythm, Single (ICD-10-PCS; 2017-06-18)
PROC: 02583ZZ Destruction of Conduction Mechanism, Percutaneous Approach (ICD-10-PCS; principal; 2017-06-18 14:30)
DX: I48.92 Unspecified atrial flutter (principal); J96.01 Acute respiratory failure with hypoxia; I21.4 Non-ST elevation (NSTEMI) myocardial infarction; J96.02 Acute respiratory failure with hypercapnia; E10.65 Type 1 diabetes mellitus with hyperglycemia; I11.0 Hypertensive heart disease with heart failure; L03.115 Cellulitis of right lower limb; I50.9 Heart failure, unspecified; E87.1 Hypo-osmolality and hyponatremia; E66.2 Morbid (severe) obesity with alveolar hypoventilation; L03.116 Cellulitis of left lower limb; J44.1 Chronic obstructive pulmonary disease with (acute) exacerbation; I48.91 Unspecified atrial fibrillation; G40.909 Epilepsy, unspecified, not intractable, without status epilepticus; F17.210 Nicotine dependence, cigarettes, uncomplicated; I27.81 Cor pulmonale (chronic); E87.5 Hyperkalemia; M79.89 Other specified soft tissue disorders; K21.9 Gastro-esophageal reflux disease without esophagitis; I25.10 Atherosclerotic heart disease of native coronary artery without angina pectoris; F40.240 Claustrophobia; D50.9 Iron deficiency anemia, unspecified; E78.5 Hyperlipidemia, unspecified; G89.4 Chronic pain syndrome; F32.9 Major depressive disorder, single episode, unspecified; I07.1 Rheumatic tricuspid insufficiency; K59.09 Other constipation; Z79.899 Other long term (current) drug therapy; Z79.82 Long term (current) use of aspirin; Z79.4 Long term (current) use of insulin; Z99.81 Dependence on supplemental oxygen; Z91.19 Patient's noncompliance with other medical treatment and regimen
CPT/HCPCS: 36600; 71045; 71275; 76937; 80048; 80053; 80307; 82550; 82728; 82805; 82948; 83540; 83550; 83605; 83690; 83735; 83880; 84100; 84132; 84484; 85007; 85018; 85025; 85027; 85610; 85730; 87040; 87449; 87641; 87804; 92960; 93005; 93308; 93613; 93653; 93922; 93970; 94002; 94003; 94150; 94640; 94664; 94667; 96365; 96375; C1730; C1732; C2630; C9113; J1644; J1650; J1815; J1885; J1940; J1956; J2250; J2270; J2930; J3010; J3370; J7050; J7613; Q9967

== ENCOUNTER 2017-07-02 12:25 | Inpatient (IN) | payer OTHER ==
[2017-07-02] VITALS (9 sets, daily range): BP systolic 120–147; BP diastolic 58–73; PULSE 89–106; RESP 17–36; TEMP 98.2–98.8; O2SAT 77–97
[~2017-07-02] VITALS: Ht 177.8 cm; Wt 132.2 kg
[~2017-07-02 12:25] MED LIST changes: +AMIO200T PO; +APIX5TAB PO; -AUGM875T3 PO; -BUME2TAB PO; +FURO1TAB60 PO; +HYDR-3366 PO; -LACTCHW3 CHEW; -NORC5TAB PO; -PRED10PA PO; -SPIR100T PO; +SPIR25TA PO; -TRAM50TA PO; -TRAZ50TA12 PO
[2017-07-02] MEDS ORDERED: SODIUM CHLORIDE 0.9% FLUSH 10 ML FLUSH IVF PRN (13:30)
[2017-07-02] MEDS ORDERED: methylPREDNISolone SOD SUCC 125 MG/2 ML VIAL IV PUSH ONE (13:30)
--- NOTE | 2017-07-02 13:41 | PD ---
HPI Chief Complaint: Respiratory Distress Time Seen by Provider: 13:22 Travel History International Travel<30 days: No Contact w/Intl Traveler<30days: No Traveled to known affect area: No History of Present Illness HPI 57-year-old male presents to the emergency department for evaluation of shortness of breath, bilateral leg edema, abdominal distention and pain. He states he ran out of his oxygen at home on Sunday. He is usually on 2 L nasal cannula. Since then, he has been having worsening shortness of breath. Patient was recently admitted in May. He has history of COPD, CHF,, atrial flutter with RVR, pickwickian syndrome. Patient had recent CT pulmonary angiogram done in May which was negative for PE. Patient denies any chest pain. He complains of epigastric abdominal pain, 8/10. Bilateral lower extremities are erythematous, which patient states is chronic for him. Patient states he has been taking his furosemide and using his nebulizers at home. His primary care physician is Dr. Gilliland. Patient's oxygen saturation in triage was 77%. He is up to 91% on 4 L O2 nasal cannula. Severely: moderate-severe. PFSH Past Medical History Hx Anticoagulant Therapy: Yes (ASPIRIN) Arthritis: No Asthma: Yes Autoimmune Disease: No Blood Disorders: No Anxiety: Yes Depression: No Heart Rhythm Problems: No Cancer: No Cardiac Catheterization: Yes Cardiovascular Problems: Yes High Cholesterol: Yes Chest Pain: Yes Congestive Heart Failure: Yes COPD: Yes Cerebrovascular Accident: No Coronary Artery Disease: No Diabetes: Yes Diminished Hearing: No Endocrine: Yes Gastrointestinal Disorders: Yes GERD: Yes Genitourinary: No Headaches: Yes Hiatal Hernia: No Hypertension: Yes Immune Disorder: No Implanted Vascular Access Dvce: No Musculoskeletal: Yes Neurologic: Yes Psychiatric: Yes Reproductive: No Respiratory: Yes Migraines: No Seizures: Yes Sleep Apnea: Yes Thyroid Disease: No Ulcer: No Past Surgical History Abdominal Surgery: No Cardiac Surgery: Yes (cardiac cath) Coronary Artery Bypass Graft: No Other Surgery: Yes (wart removed right leg) Social History Alcohol Use: No Tobacco Use: Yes (04/17 PPD) Substance Use: No Allergies-Medications (Allergen,Severity, Reaction): Coded Allergies: No Known Allergies (Verified Allergy, Unknown, 06/11/17) Reported Meds & Prescriptions Reported Meds & Active Scripts Active Lasix (Furosemide) 40 Mg Tab 40 Mg PO BID Spironolactone 25 Mg Tab 25 Mg PO BIDPC [place] (Hydrocodone-Acetaminophen) 10-325 Mg Tab 1 Tab PO Q4H PRN Amiodarone (Amiodarone HCl) 200 Mg Tab 400 Mg PO Q12HR Eliquis (Apixaban) 5 Mg Tab 5 Mg PO BID Omeprazole 20 Mg Tab 40 Mg PO DAILY Oxygen (O2) Device 2 Liter JACQUELINE.CANULA CONTINUOUS Oxygen Concentrator Portable Gaseous 2 L/min via Nasal Canula Continuous For 99 months Oxygen tank (Oxygen) 1 Ea Tank 2 Liter JACQUELINE.CANULA CONTINUOUS Oxygen Concentrator Portable Gaseous 2 L/min via Nasal Cannula Continuous For 99 months Reported Lyrica (Pregabalin) 50 Mg Cap 50 Mg PO DAILY Ventolin Hfa 18 GM Inh (Albuterol Sulfate) 90 Mcg/Act Aer 1 Puff INH Q4H PRN Dulcolax Supp (Bisacodyl) 10 Mg Supp 10 Mg RECTAL DAILY PRN Senna S (Sennosides-Docusate Sodium) 8.6-50 Mg Tab 1-2 Tab PO Q12HR PRN Lantus Inj (Insulin Glargine) 1,000 Unit/10 Ml Vial 80 Units SQ BID Advair Diskus Inh (Fluticasone-Salmeterol Inh) 250-50 Mcg/Blist Aer 2 Puff INH BID Rinse mouth after use. Aspirin DR (Aspirin) 81 Mg Tabdr 81 Mg PO DAILY Hydralazine HCl 25 Mg Tablet 25 Mg PO TID Isosorbide Mononitrate ER (Isosorbide Mononitrate) 30 Mg Alexsander 30 Mg PO DAILY Duoneb (Ipratropium-Albuterol Neb) 0.5-2.5 Mg/3 Ml Neb 1 Nebule NEB Q4HR NEB PRN Bupropion HCl 100 Mg Tab 100 Mg PO DAILY Review of Systems Except as stated in HPI: all other systems reviewed are Neg Physical Exam Narrative GENERAL: Well-nourished, well-developed male patient, afebrile SKIN: Focused skin assessment warm/dry. Bilateral lower extremities are erythematous. HEAD: Normocephalic. Atraumatic. EYES: No scleral icterus. No injection or drainage. NECK: Supple, trachea midline. No JVD or lymphadenopathy. CARDIOVASCULAR: Regular rate and rhythm without murmurs, gallops, or rubs. RESPIRATORY: Breath sounds equal bilaterally. Positive accessory muscle use. Lung sounds are diminished throughout. Patient is tachypneic. GASTROINTESTINAL: Abdomen distended, generalized tenderness to palpation MUSCULOSKELETAL: No cyanosis. Patient has bilateral 3+ lower extremity edema. BACK: Nontender without obvious deformity. No CVA tenderness. Data Data Last Documented VS Vital Signs Date Time Temp Pulse Resp B/P (MAP) Pulse Ox O2 Delivery O2 Flow Rate FiO2 07/02/17 14:44 103 24 136/65 (88) 94 Nasal Cannula 4.00 07/02/17 13:03 98.2 Orders Orders Complete Blood Count With Diff (07/02/17 13:04) Comprehensive Metabolic Panel (07/02/17 13:04) B-Type Natriuretic Peptide (07/02/17 13:04) Act Partial Throm Time (Ptt) (07/02/17 13:04) Prothrombin Time / Inr (Pt) (07/02/17 13:04) Ckmb (Isoenzyme) Profile (07/02/17 13:04) Troponin I (07/02/17 13:04) Electrocardiogram (07/02/17 13:04) Chest, Pa & Lat (07/02/17 13:04) Lipase (07/02/17 13:29) Ecg Monitoring (07/02/17 13:29) Iv Access Insert/Monitor (07/02/17 13:29) Oximetry (07/02/17 13:29) Oxygen Administration (07/02/17 13:29) Methylprednisolone So Succ Inj (Solumedr (07/02/17 13:30) Albuterol-Ipratropium Neb (Duoneb Neb) (07/02/17 13:30) Sodium Chloride 0.9% Flush (Ns Flush) (07/02/17 13:30) Ct Abd/Pel W/O Iv Contrast (07/02/17 ) Furosemide Inj (Lasix Inj) (07/02/17 13:45) Labs Laboratory Tests Test 07/02/17 13:30 White Blood Count 13.1 TH/MM3 Red Blood Count 4.14 MIL/MM3 Hemoglobin 8.9 GM/DL Hematocrit 30.7 % Mean Corpuscular Volume 74.0 FL Mean Corpuscular Hemoglobin 21.6 PG Mean Corpuscular Hemoglobin Concent 29.2 % Red Cell Distribution Width 29.3 % Platelet Count 240 TH/MM3 Mean Platelet Volume 7.8 FL Neutrophils (%) (Auto) 81.2 % Lymphocytes (%) (Auto) 10.4 % Monocytes (%) (Auto) 7.8 % Eosinophils (%) (Auto) 0.3 % Basophils (%) (Auto) 0.3 % Neutrophils # (Auto) 10.6 TH/MM3 Lymphocytes # (Auto) 1.4 TH/MM3 Monocytes # (Auto) 1.0 TH/MM3 Eosinophils # (Auto) 0.0 TH/MM3 Basophils # (Auto) 0.0 TH/MM3 CBC Comment AUTO DIFF Differential Total Cells Counted 100 Neutrophils % (Manual) 80 % Band Neutrophils % 5 % Lymphocytes % 12 % Monocytes % 3 % Neutrophils # (Manual) 11.1 TH/MM3 Nucleated Red Blood Cells 1 /100 WBC Differential Comment FINAL DIFF MANUAL Platelet Estimate NORMAL Platelet Morphology Comment NORMAL Target Cells Prothrombin Time 11.2 SEC Prothromb Time International Ratio 1.1 RATIO Activated Partial Thromboplast Time 25.6 SEC Blood Urea Nitrogen 22 MG/DL Creatinine 0.95 MG/DL Random Glucose 126 MG/DL Total Protein 6.7 GM/DL Albumin 3.0 GM/DL Calcium Level 8.8 MG/DL Alkaline Phosphatase 146 U/L Aspartate Amino Transf (AST/SGOT) 15 U/L Alanine Aminotransferase (ALT/SGPT) 24 U/L Total Bilirubin 0.5 MG/DL Sodium Level 133 MEQ/L Potassium Level 3.8 MEQ/L Chloride Level 88 MEQ/L Carbon Dioxide Level 40.0 MEQ/L Anion Gap 5 MEQ/L Estimat Glomerular Filtration Rate 82 ML/MIN Total Creatine Kinase 23 U/L Troponin I LESS THAN 0.02 NG/ML B-Type Natriuretic Peptide 330 PG/ML Lipase 62 U/L [facility] Medical Decision Making Medical Screen Exam Complete: Yes Emergency Medical Condition: Yes Medical Record Reviewed: Yes Interpretation(s) Last Impressions Chest X-Ray 07/02/17 1304 Signed Impressions: Service Date/Time: Sunday, July 02, 2017 13:44 - CONCLUSION: Common cardiomegaly without failure. Stable to improved from 06/17/17 Mario Pablo MD FACR Differential Diagnosis CHF exacerbation versus COPD exacerbation versus pneumonia versus ascites versus pancreatitis versus sepsis Narrative Course 57-year-old male presents to the emergency department for evaluation of shortness of breath, abdominal pain, out of oxygen since Sunday. Oxygen saturation triage is 77% on room air EKG shows sinus tachycardia, heart rate 103. CBC, CMP, BNP, CK, troponin, lipase, PTT, PT/INR are ordered and pending. Chest x-ray, CT abdomen/pelvis is ordered and pending. Patient was given DuoNeb 3, Solu-Medrol 125 mg IV, Lasix 40 mg IV. CBC shows leukocytosis 13.1, hemoglobin 8.9, hematocrit 30.7. CMP shows no acute abnormality. Lipase is 62. CK is 23. Troponin is less than 0.02. BNP is 330. Coags are unremarkable. Chest x-ray shows cardiomegaly without failure. Stable to improved from 06/17/17. CT abdomen/pelvis shows no acute process. On reexamination, patient signs and saturation is 91% on 4 L O2 nasal cannula. He is still tachypneic. Patient will be admitted for further evaluation. Diagnosis Primary Impression: Acute exacerbation of chronic obstructive pulmonary disease (COPD) Additional Impressions: CHF (congestive heart failure) Qualified Codes: I50.9 - Heart failure, unspecified Hypoxia Admitting Information Admitting Physician Requests: Admit Marita Bush Jul 02, 2017 13:41
[2017-07-02] MEDS ORDERED: FUROSEMIDE 40 MG/4 ML VIAL IV PUSH ONE (13:45)
[2017-07-02 14:01] LABS: AUTOMATED NEUTROPHIL # 10.6 TH/MM3 (1.8-7.7); BASOPHIL % 0.3 % (0.0-2.0); EOSINOPHIL % 0.3 % (0.0-4.0); HEMATOCRIT 30.7 % (39.0-51.0); HEMOGLOBIN 8.9 GM/DL (13.0-17.0); LYMPH % 10.4 % (9.0-44.0); LYMPHOCYTE # 1.4 TH/MM3 (1.0-4.8); MEAN CORPUSCULAR HEMOGLOBIN 21.6 PG (27.0-34.0); MEAN PLATELET VOLUME 7.8 FL (7.0-11.0); MONO % 7.8 % (0.0-8.0); NEUT % 81.2 % (16.0-70.0); PLATELET COUNT 240 TH/MM3 (150-450); RED BLOOD COUNT 4.14 MIL/MM3 (4.50-5.90); RED CELL DISTRIBUTION WIDTH 29.3 % (11.6-17.2); WHITE BLOOD COUNT 13.1 TH/MM3 (4.0-11.0)
[2017-07-02 14:03] LABS: MEAN CORPUSCULAR HGB CONC 29.2 % (32.0-36.0)
--- NOTE | 2017-07-02 14:13 | RADRPT ---
EXAM DATE/TIME: 07/02/2017 13:44 [facility] COMPARISON: CHEST SINGLE AP, June 17, 2017, 4:11. INDICATIONS : Shortness of breath. MEDICAL HISTORY : Chronic obstructive pulmonary disease. Hypertension Diabetes mellitus type II. CHF SURGICAL HISTORY : None. ENCOUNTER: Initial ACUITY: 1 day PAIN SCORE: 0/10 LOCATION: Bilateral chest FINDINGS: PA and lateral views of the chest demonstrate the lungs to be symmetrically aerated without evidence of mass, infiltrate or effusion. Mild compensated cardiomegaly without failure. Osseous structures are intact. CONCLUSION: Common cardiomegaly without failure. Stable to improved from 06/17/17 Mario Pablo MD FACR on July 02, 2017 at 14:09 Board Certified Radiologist. This report was verified electronically.
[2017-07-02 14:19] LABS: INTERNATIONAL NORMALIZED RATIO 1.1 RATIO; PROTHROMBIN TIME - PATIENT 11.2 SEC (9.8-11.6)
[2017-07-02 14:29] LABS: ALT (GPT) 24 U/L (12-78); AST (GOT) 15 U/L (15-37); BLOOD UREA NITROGEN 22 MG/DL (7-18); CALCIUM 8.8 MG/DL (8.5-10.1); CHLORIDE 88 MEQ/L (98-107); CREATININE 0.95 MG/DL (0.60-1.30); GLOMERULAR FILTRATION RATE 82 ML/MIN (>89); GLUCOSE,RANDOM 126 MG/DL (74-106); SODIUM (NA) 133 MEQ/L (136-145)
[2017-07-02] MEDS: RESP: ALBUTEROL 2.5 MG/IPRATROPIUM 0.5 MG NEB (SCH) INH ×2 (14:34→14:35)
[2017-07-02 14:36] LABS: ALKALINE PHOSPHATASE 146 U/L (45-117); TOTAL BILIRUBIN ADULT 0.5 MG/DL (0.2-1.0); TOTAL PROTEIN 6.7 GM/DL (6.4-8.2); TROPONIN I LESS THAN 0.02 NG/ML (0.02-0.05)
[2017-07-02 14:43] LABS: BANDS 5 % (0-6); CORRECTED NUCLEATED RBC 1 /100 WBC (0-0); LYMPHOCYTES 12 % (9-44); MONOCYTES 3 % (0-8); NEUTROPHIL # MANUAL DIFF 11.1 TH/MM3 (1.8-7.7); NUCLEATED RED BLOOD CELL 1 (0-0); POLYS (SEG NEUTROPHILS) 80 % (16-70)
--- NOTE | 2017-07-02 15:30 | RADRPT ---
EXAM DATE/TIME: 07/02/2017 15:13 [facility] COMPARISON: No previous studies available for comparison. INDICATIONS : Abdomen pain and bloating. ORAL CONTRAST: No oral contrast ingested. RADIATION DOSE: 16.82 CTDIvol (mGy) MEDICAL HISTORY : Seizures. Cardiovascular disease Chronic obstructive pulmonary disease.Hypertension,diabetes SURGICAL HISTORY : None. ENCOUNTER: Initial ACUITY: 1 day PAIN SCALE: 9/10 LOCATION: Abdomen TECHNIQUE: Volumetric scanning of the abdomen and pelvis was performed. Using automated exposure control and ad justment of the mA and/or kV according to patient size, radiation dose was kept as low as reasonably achievable to obtain optimal diagnostic quality images. DICOM format image data is available electro nically for review and comparison. FINDINGS: Lower lungs are clear. Mild compensated cardiomegaly without pericardial effusion Liver is free of focal defects Gallbladder small and contracted Spleen and pancreas unremarkable The adrenal glands appear normal Right and left kidneys are unremarkable There is no adenopathy Colon and mesentery are unremarkable The pelvis bladder and distal vessels unremarkable Prominent prostatic calcifications Review of bone windows reveals degenerative changes in the lumbar spine both SI joints. CONCLUSION: Negative CT scan of abdomen pelvis for acute process. There is no ascites. Mario Pablo MD FACR on July 02, 2017 at 15:26 Board Certified Radiologist. This report was verified electronically.
[2017-07-02] MEDS ORDERED: BISACODYL 10 MG SUPP RECTAL PRN ×2 (16:00→16:15)
[2017-07-02] MEDS ORDERED: ACETAMINOPHEN 325 MG TAB PO PRN (16:15)
[2017-07-02] MEDS ORDERED: LORazepam 2 MG/ML VIAL IV PUSH PRN (16:15)
[2017-07-02] MEDS ORDERED: ZOLPIDEM TARTRATE 5 MG TAB PO PRN (16:15)
[2017-07-02] MEDS ORDERED: ONDANSETRON HCL 4 MG/2 ML VIAL IVP PRN (16:15)
[2017-07-02] MEDS ORDERED: MAGNESIUM HYDROXIDE SUSP 30 ML CUP PO PRN (16:15)
[2017-07-02] MEDS ORDERED: LACTULOSE SYRUP 20 GM/30 ML CUP PO PRN (16:15)
[2017-07-02] MEDS ORDERED: SODIUM CHLORIDE 0.9% FLUSH 10 ML FLUSH IV FLUSH PRN (16:15)
[2017-07-02] MEDS ORDERED: NALOXONE HCL 0.4 MG/ML AMP IV PUSH PRN (16:15)
[2017-07-02] MEDS ORDERED: RESP: ALBUTEROL 1.25 MG/3 ML NEB (PRN) NEB (16:15)
[2017-07-02] MEDS ORDERED: LORazepam 0.5 MG TAB PO PRN (16:15)
[2017-07-02] MEDS ORDERED: SENNOSIDES 8.6 MG TAB PO PRN (16:15)
[2017-07-02] MEDS ORDERED: cloNIDine HCL 0.1 MG TAB PO PRN (16:15)
[2017-07-02] MEDS: FUROSEMIDE 40 MG/4 ML VIAL IV PUSH SCH (17:55)
[2017-07-02] MEDS: cefTRIAXone INJ 1,000 MG in SODIUM CHLORIDE 0.9% INJ 100 ML IV SCH (17:59)
[2017-07-02] MEDS: hydrALAZINE HCL 25 MG TAB PO SCH (18:44)
[2017-07-02] MEDS: SPIRONOLACTONE 25 MG TAB PO SCH (18:44)
[2017-07-02] MEDS: ACETAMINOPHEN/HYDROcodone 325 MG/10 MG TAB PO PRN (18:45)
[2017-07-02] MEDS: AZITHROMYCIN INJ 500 MG in SODIUM CHLOR 0.9% 250 ML INJ 250 ML IV SCH (18:46)
[2017-07-02] MEDS: SODIUM CHLORIDE 0.9% FLUSH 10 ML FLUSH IV FLUSH SCH (21:18)
[2017-07-02] MEDS: DOCUSATE SODIUM 50 MG/SENNA 8.6 MG TAB PO SCH (21:18)
[2017-07-02] MEDS: AMIODARONE 200 MG TAB PO SCH (21:18)
[2017-07-02] MEDS: APIXABAN 5 MG TABLET PO SCH (21:18)
[2017-07-02] MEDS ORDERED: DEXTROSE 50% IN WATER 50 ML VIAL(D50) IV PUSH PRN (23:15)
[2017-07-02] MEDS ORDERED: GLUCAGON 1 MG/ML VIAL OTHER PRN (23:15)
[2017-07-02] MEDS: MEDIUM DOSE INSULIN NOVOLOG SUPPLEMENTAL SCALE SQ SCH (23:41)
[2017-07-02] MEDS: INSULIN DETEMIR 100 UNITS/ML VIAL SQ SCH (23:42)
[2017-07-03] VITALS (11 sets, daily range): BP systolic 112–147; BP diastolic 10–76; PULSE 61–106; RESP 16–20; TEMP 96–97.7; O2SAT 93–99
[2017-07-03] MEDS: ACETAMINOPHEN/HYDROcodone 325 MG/10 MG TAB PO PRN ×5 (00:55→22:42)
[2017-07-03] MEDS: RESP: ALBUTEROL 2.5 MG/IPRATROPIUM 0.5 MG NEB (PRN) NEB (01:40)
--- NOTE | 2017-07-03 07:24 | HHI.HP ---
History of Present Illness Primary Care Physician Jozef Gilliland MD Admission Diagnosis COPD exacerbatin, CHF, hypoxia Diagnoses: (1) Acute exacerbation of chronic obstructive pulmonary disease (COPD) (2) Hypoxia (3) CHF (congestive heart failure) (4) Hyponatremia (5) Anasarca (6) Obesity (7) Respiratory distress (8) Type 2 diabetes mellitus (9) Gastritis (10) Atrial flutter with rapid ventricular response History of Present Illness 57 YEAR OLD CM, READMIT WITH COPD AND CHF EXACERBATION. [place] [facility] [place] [facility] [place] WITH RESPIR FAILURE. FOUND WITH AF RVR AND HAD SUCCESSFUL ABLATION BY DR RUVALCABA. HE WENT HOME. CAME TO MY OFFICE LAST WEEK AND WAS DOING VERY POORLY DUE TO ANASARCA, COPD, AND CHF. WE DISCUSSED PALLIATION. HE WENT HOME THAT DAY YET RETURNED TO [facility] THIS TIME. HE WAS ADMITTED AND WAS DEMANDING PAIN MEDS AND SUBSEQUENTLY SIGNED OUT AMA. PT NOR READMITTED WITH AGAIN FLUID OVERLOAD, ANASARCA, CHF AND COPD. DISCUSSED WITH NURSING. Review of Systems Constitutional: DENIES: Fever, Chills, Change in appetite Endocrine: DENIES: Heat/cold intolerance Eyes: DENIES: Blurred vision, Eye pain Ears, nose, mouth, throat: DENIES: Tinnitus, Hearing loss, Vertigo, Nasal discharge, Oral lesions, Throat pain, Hoarseness, Ear Pain, Running Nose, Epistaxis, Sinus Pain, Toothache, Odynophagia Respiratory: COMPLAINS OF: Apneas, Cough, Snoring, Wheezing, Hemoptysis, Sputum production, Shortness of breath Cardiovascular: COMPLAINS OF: Chest pain, Palpitations, Syncope, Dyspnea on Exertion, PND, Lower Extremity Edema, Orthopnea, Claudication Gastrointestinal: DENIES: Abdominal pain, Black stools, Bloody stools, Constipation, Diarrhea, Nausea, Vomiting, Difficulty Swallowing, Anorexia Genitourinary: DENIES: Sexual dysfunction, Urinary frequency, Urinary incontinence, Urgency, Hematuria, Dysuria, Nocturia, Penile Discharge, Testicular Pain, Testicular Swelling Musculoskeletal: COMPLAINS OF: Joint pain, Muscle aches, Stiffness, Joint Swelling, Back pain, Neck pain Integumentary: COMPLAINS OF: Abnormal pigmentation, Nail changes, Pruritus, Rash Hematologic/lymphatic: DENIES: Bruising, Lymphadenopathy Immunologic/allergic: DENIES: Eczema, Urticaria Neurologic: COMPLAINS OF: Abnormal gait, Headache, Localized weakness, Paresthesias, Seizures, Speech Problems, Tremor, Poor Balance Psychiatric: DENIES: Anxiety, Confusion, Mood changes, Depression, Hallucinations, Agitation, Suicidal Ideation, Homicidal Ideation, Delusions Except as stated in HPI: all other systems reviewed are Neg Past Family Social History Allergies: Coded Allergies: No Known Allergies (Verified Allergy, Unknown, 06/11/17) Past Medical History CHF COPD DM HTN Past Surgical History ABLATION Reported Medications Current Medications Medications (Trade) Dose Ordered Sig/Whit Route Start Time Stop Time Status Last Admin (Cordarone) 400 mg Q12HR PO 07/02/17 21:00 07/02/17 21:18 (Eliquis) 5 mg BID PO 07/02/17 21:00 07/02/17 21:18 (Ecotrin Ec) 81 mg DAILY PO 07/03/17 09:00 (Wellbutrin) 100 mg DAILY PO 07/03/17 09:00 (Apresoline) 25 mg TID PO 07/02/17 18:00 07/02/17 18:44 ([place] 10-325 Mg) 1 tab Q4H PRN PO 07/02/17 16:00 07/03/17 00:55 (Duoneb Neb) 1 ampule Q4HR NEB PRN NEB 07/02/17 17:45 07/03/17 01:40 (Imdur) 30 mg DAILY PO 07/03/17 09:00 (Lyrica) 50 mg DAILY PO 07/03/17 09:00 (Aldactone) 25 mg BIDPC PO 07/02/17 18:00 07/02/17 18:44 (NS Flush) 2 ml UNSCH PRN IV FLUSH 07/02/17 16:15 (NS Flush) 2 ml BID IV FLUSH 07/02/17 21:00 07/02/17 21:18 (Tylenol) 650 mg Q4H PRN PO 07/02/17 16:15 (Zofran Inj) 4 mg Q6H PRN IVP 07/02/17 16:15 (Ambien) 5 mg HS PRN PO 07/02/17 16:15 07/02/17 21:17 (Narcan Inj) 0.4 mg UNSCH PRN IV PUSH 07/02/17 16:15 (Amira-Colace) 1 tab BID PO 07/02/17 21:00 07/02/17 21:18 (Milk Of Magnesia Liq) 30 ml Q12H PRN PO 07/02/17 16:15 (Senokot) 17.2 mg Q12H PRN PO 07/02/17 16:15 (Dulcolax Supp) 10 mg DAILY PRN RECTAL 07/02/17 16:15 (Lactulose Liq) 30 ml DAILY PRN PO 07/02/17 16:15 (Albuterol Neb) 1.25 mg Q4HR NEB PRN NEB 07/02/17 16:15 (Ativan) 0.5 mg Q8H PRN PO 07/02/17 16:15 (Ativan Inj) 0.5 mg Q6H PRN IV PUSH 07/02/17 16:15 (Catapres) 0.1 mg Q6H PRN PO 07/02/17 16:15 (Lasix Inj) 40 mg BID@09,18 IV PUSH 07/02/17 18:00 Azithromycin 500 mg/Sodium Chloride 250 ml @ 250 mls/hr Q24H IV 07/02/17 18:00 07/02/17 18:46 Ceftriaxone Sodium 1000 mg/ Sodium Chloride 100 ml @ 200 mls/hr Q24H IV 07/02/17 18:00 07/02/17 17:59 (Protonix) 40 mg DAILY PO 07/03/17 09:00 (D50w (Vial) Inj) 50 ml UNSCH PRN IV PUSH 07/02/17 23:15 (Glucagon Inj) 1 mg UNSCH PRN OTHER 07/02/17 23:15 (NovoLOG SUPPLEMENTAL SCALE) 1 ACHS SLIDING SCALE SQ 07/03/17 08:00 07/02/17 23:41 (Levemir Inj) 30 units BID SQ 07/03/17 09:00 07/02/17 23:42 Family History NC Social History ONE PPD, OCCAS ETOH, USES MJ SOME FOR PAIN, NO OTHER ILLICITS, [place]ES [place] Physical Exam Vital Signs Vital Signs Date Time Temp Pulse Resp B/P (MAP) Pulse Ox O2 Delivery O2 Flow Rate FiO2 07/03/17 03:42 82 07/03/17 03:25 Nasal Cannula 2.00 07/03/17 03:25 97.5 87 20 147/76 (99) 97 07/03/17 01:41 98 Nasal Cannula 3.00 07/03/17 00:00 97.5 92 20 145/73 (97) 93 07/02/17 23:52 97 Nasal Cannula 3.00 07/02/17 23:41 89 07/02/17 21:15 Nasal Cannula 3.00 07/02/17 21:14 Nasal Cannula 4.00 07/02/17 20:00 98.8 97 20 135/73 (93) 92 07/02/17 19:42 94 07/02/17 18:25 98.3 92 18 144/71 (95) 97 07/02/17 17:32 92 21 147/72 (97) 95 Nasal Cannula 4.00 07/02/17 17:13 92 17 147/72 (97) 95 Nasal Cannula 4.00 07/02/17 14:44 103 24 136/65 (88) 94 Nasal Cannula 4.00 07/02/17 13:38 24 95 Nasal Cannula 4.00 07/02/17 13:38 95 Nasal Cannula 4.00 07/02/17 13:38 95 Room Air 4.00 07/02/17 13:03 98.2 106 36 120/58 (78) 77 Physical Exam GENERAL: This is a well-nourished, well-developed patient, in no apparent distress. SKIN: venous stasis changes from patellas down to mid foot bilat, HEAD: Atraumatic. Normocephalic. No temporal or scalp tenderness. EYES: Pupils equal round and reactive. Extraocular motions intact. No scleral icterus. No injection or drainage. ENT: Nose without bleeding, purulent drainage or septal hematoma. Throat without erythema, tonsillar hypertrophy or exudate. Uvula midline. Airway patent. NECK: Trachea midline. No JVD or lymphadenopathy. Supple, nontender, no meningeal signs. CARDIOVASCULAR: Regular rate and rhythm without murmurs, gallops, or rubs. RESPIRATORY: patchy ronchi to apices, harsh congested cough, end expir wheezes GASTROINTESTINAL: Abdomen soft, non-tender, nondistended. No hepato-splenomegaly , or palpable masses. No guarding. MUSCULOSKELETAL: Extremities without clubbing, cyanosis, or edema. No joint tenderness, effusion, or edema noted. No calf tenderness. Negative Homans sign bilaterally. NEUROLOGICAL: Awake and alert. Cranial nerves II through XII intact. Motor and sensory grossly within normal limits. 3 out of 5 muscle strength in all muscle groups. Normal speech. Laboratory Laboratory Tests Test 07/02/17 13:30 White Blood Count 13.1 Red Blood Count 4.14 Hemoglobin 8.9 Hematocrit 30.7 Mean Corpuscular Volume 74.0 Mean Corpuscular Hemoglobin 21.6 Mean Corpuscular Hemoglobin Concent 29.2 Red Cell Distribution Width 29.3 Platelet Count 240 Mean Platelet Volume 7.8 Neutrophils (%) (Auto) 81.2 Lymphocytes (%) (Auto) 10.4 Monocytes (%) (Auto) 7.8 Eosinophils (%) (Auto) 0.3 Basophils (%) (Auto) 0.3 Neutrophils # (Auto) 10.6 Lymphocytes # (Auto) 1.4 Monocytes # (Auto) 1.0 Eosinophils # (Auto) 0.0 Basophils # (Auto) 0.0 CBC Comment AUTO DIFF Differential Total Cells Counted 100 Neutrophils % (Manual) 80 Band Neutrophils % 5 Lymphocytes % 12 Monocytes % 3 Neutrophils # (Manual) 11.1 Nucleated Red Blood Cells 1 Differential Comment FINAL DIFF MANUAL Platelet Estimate NORMAL Platelet Morphology Comment NORMAL Target Cells Prothrombin Time 11.2 Prothromb Time International Ratio 1.1 Activated Partial Thromboplast Time 25.6 Blood Urea Nitrogen 22 Creatinine 0.95 Random Glucose 126 Total Protein 6.7 Albumin 3.0 Calcium Level 8.8 Alkaline Phosphatase 146 Aspartate Amino Transf (AST/SGOT) 15 Alanine Aminotransferase (ALT/SGPT) 24 Total Bilirubin 0.5 Sodium Level 133 Potassium Level 3.8 Chloride Level 88 Carbon Dioxide Level 40.0 Anion Gap 5 Estimat Glomerular Filtration Rate 82 Total Creatine Kinase 23 Troponin I LESS THAN 0.02 B-Type Natriuretic Peptide 330 Lipase 62 Result Diagram: 07/02/17 1330 07/02/17 1330 Imaging Last 72 hours Impressions Chest X-Ray 07/02/17 1304 Signed Impressions: Service Date/Time: Sunday, July 02, 2017 13:44 - CONCLUSION: Common cardiomegaly without failure. Stable to improved from 06/17/17 Mario Pablo MD FACR Abdomen/Pelvis CT 07/02/17 0000 Signed Impressions: Service Date/Time: Sunday, July 02, 2017 15:13 - CONCLUSION: Negative CT scan of abdomen pelvis for acute process. There is no ascites. Mario Pablo MD FACR Caprini VTE Risk Assessment Caprini VTE Risk Assessment: Mod/High Risk (score >= 2) VTE [facility] Contraindication: Severe LE edema Caprini Risk Assessment Model Point Value = 1 Point Value = 2 Point Value = 3 Point Value = 5 Age 41-60 Minor surgery BMI > 25 kg/m2 Swollen legs Varicose veins or History of unexplained or recurrent spontaneous Oral contraceptives or hormone replacement Sepsis (< 1 month) Serious lung disease, including pneumonia (< 1 month) Abnormal pulmonary function Acute myocardial infarction Congestive heart failure (< 1 month) History of inflammatory bowel disease Medical patient at bed rest Age 61-74 Arthroscopic surgery Major open surgery (> 45 min) Laparoscopic surgery (> 45 min) Malignancy Confined to bed (> 72 hours) Immobilizing plaster cast Central venous access Age >= 75 History of VTE Family history of VTE Factor V Leiden Prothrombin [id number] Lupus anticoagulant Anticardiolipin antibodies Elevated serum homocysteine Heparin-induced thrombocytopenia Other congenital or acquired thrombophilia Stroke (< 1 month) Elective arthroplasty Hip, pelvis, or leg fracture Acute spinal cord injury (< 1 month) Prophylaxis Regimen Total Risk Factor Score Risk Level Prophylaxis Regimen 0-1 Low Early ambulation 2 Moderate Order ONE of the following: *Sequential Compression Device (SCD) *Heparin 5000 units SQ BID 3-4 Higher Order ONE of the following medications: *Heparin 5000 units SQ TID *Enoxaparin/Lovenox 40 mg SQ daily (WT < 150 kg, CrCl > 30 mL/min) *Enoxaparin/Lovenox 30 mg SQ daily (WT < 150 kg, CrCl > 10-29 mL/min) *Enoxaparin/Lovenox 30 mg SQ BID (WT < 150 kg, CrCl > 30 mL/min) AND/OR *Sequential Compression Device (SCD) 5 or more Highest Order ONE of the following medications: *Heparin 5000 units SQ TID (Preferred with Epidurals) *Enoxaparin/Lovenox 40 mg SQ daily (WT < 150 kg, CrCl > 30 mL/min) *Enoxaparin/Lovenox 30 mg SQ daily (WT < 150 kg, CrCl > 10-29 mL/min) *Enoxaparin/Lovenox 30 mg SQ BID (WT < 150 kg, CrCl > 30 mL/min) AND *Sequential Compression Device (SCD) Assessment and Plan Problem List: (1) Respiratory distress ICD Codes: R06.00 - Dyspnea, unspecified Status: Acute (2) Acute exacerbation of chronic obstructive pulmonary disease (COPD) ICD Codes: J44.1 - Chronic obstructive pulmonary disease with (acute) exacerbation Status: Acute (3) CHF (congestive heart failure) ICD Codes: I50.9 - Congestive heart failure Status: Chronic (4) Hypoxia ICD Codes: R09.02 - Hypoxia Status: Acute (5) Atrial flutter with rapid ventricular response ICD Codes: I48.92 - Unspecified atrial flutter (6) Type 2 diabetes mellitus ICD Codes: E11.9 - Type 2 diabetes mellitus without complications Status: Acute (7) Obesity ICD Codes: E66.9 - Obesity, unspecified Status: Acute (8) Hyponatremia ICD Codes: E87.1 - Hypo-osmolality and hyponatremia Status: Acute (9) Gastritis ICD Codes: K29.70 - Gastritis, unspecified, without bleeding (10) Anasarca ICD Codes: R60.1 - Generalized edema Status: Acute (11) Tobacco abuse ICD Codes: Z72.0 - Tobacco abuse Status: Chronic (12) DVT prophylaxis ICD Codes: Z79.01 - DVT prophylaxis Status: Acute Assessment and Plan IV ABX IV STEROIDS LASIX 40 IV BID DUONEBS QID AND PRN INSULIN SSI AND LONG ACTING AM LABS PULMONARY CONSULT ELIQUIS FOR DVT PROPHYLAXIS AND AF OMEPRAZOLE FOR GI PROPHYLAXIS SEE ORDERS FOR MED AND LAB CHANGES. CONSULT CM: WILL BE DISCHARGING THE PT FROM MY MEDICAL PRACTICE DUE TO NONCOMPLIANCE AND BEING DISRUPTIVE IN MY OFFICE. Discharge Planning HOME OVIDIO WITH [facility], PT NEEDS TO BE BACK ON HOSPICE AGAIN YET REFUSES. Physician Attestation OBS ADMIT Problem Qualifiers (1) CHF (congestive heart failure): Qualified Codes: I50.9 - Heart failure, unspecified Jozef Gilliland MD Jul 03, 2017 07:24
[2017-07-03] MEDS: SODIUM CHLORIDE 0.9% FLUSH 10 ML FLUSH IV FLUSH SCH ×2 (08:20→22:42)
[2017-07-03] MEDS: PANTOPRAZOLE SOD 40 MG DELAYED RELEASE TAB PO SCH (08:21)
[2017-07-03] MEDS: PREGABALIN 25 MG CAP PO SCH (08:21)
[2017-07-03] MEDS: APIXABAN 5 MG TABLET PO SCH ×2 (08:22→21:00)
[2017-07-03] MEDS: FUROSEMIDE 40 MG/4 ML VIAL IV PUSH SCH ×2 (08:22→19:02)
[2017-07-03] MEDS: ISOSORBIDE MONONITRATE 30 MG CR TAB (IMDUR) PO SCH (08:22)
[2017-07-03] MEDS: DOCUSATE SODIUM 50 MG/SENNA 8.6 MG TAB PO SCH ×2 (08:22→21:02)
[2017-07-03] MEDS: AMIODARONE 200 MG TAB PO SCH ×2 (08:23→21:02)
[2017-07-03] MEDS: ASPIRIN EC 81 MG TABEC PO SCH (08:24)
[2017-07-03] MEDS: hydrALAZINE HCL 25 MG TAB PO SCH ×3 (08:24→18:58)
[2017-07-03] MEDS: INSULIN DETEMIR 100 UNITS/ML VIAL SQ SCH ×2 (08:26→21:00)
[2017-07-03] MEDS: MEDIUM DOSE INSULIN NOVOLOG SUPPLEMENTAL SCALE SQ SCH ×4 (08:26→21:01)
[2017-07-03] MEDS: SPIRONOLACTONE 25 MG TAB PO SCH ×2 (08:28→19:01)
[2017-07-03] MEDS ORDERED: NON-FORMULARY DRUG (Omeprazole 40 MG) PO SCH (09:00)
[2017-07-03] MEDS: buPROPion HCL 100 MG TAB PO SCH (09:45)
[2017-07-03 10:01] LABS: BASOPHIL % 0.2 % (0.0-2.0); HEMATOCRIT 31.7 % (39.0-51.0); HEMOGLOBIN 9.3 GM/DL (13.0-17.0); LYMPH % 10.5 % (9.0-44.0); LYMPHOCYTE # 0.7 TH/MM3 (1.0-4.8); MEAN CELL VOLUME 72.9 FL (80.0-100.0); MEAN CORPUSCULAR HEMOGLOBIN 21.5 PG (27.0-34.0); MEAN PLATELET VOLUME 7.9 FL (7.0-11.0); MONO % 4.8 % (0.0-8.0); MONOCYTE # 0.3 TH/MM3 (0-0.9); NEUT % 84.5 % (16.0-70.0); PLATELET COUNT 229 TH/MM3 (150-450); RED BLOOD COUNT 4.35 MIL/MM3 (4.50-5.90); RED CELL DISTRIBUTION WIDTH 28.8 % (11.6-17.2)
[2017-07-03 10:18] LABS: MEAN CORPUSCULAR HGB CONC 29.4 % (32.0-36.0)
[2017-07-03 10:32] LABS: BICARBONATE 40.9 MEQ/L (21.0-32.0); CALCIUM 9.5 MG/DL (8.5-10.1); CREATININE 0.76 MG/DL (0.60-1.30)
[2017-07-03 10:45] LABS: OVALOCYTES 1+ (NORMAL); TEARDROP RBCS 1+ (NORMAL)
--- NOTE | 2017-07-03 11:24 | PD.CONS ---
HPI Service Nephrology Consult Requested By Reason for Consult Fluid Overload Primary Care Physician Jozef Gilliland MD History of Present Illness This is a 57 y/o male patient who was admitted for anasarca and shortness of breath. He has severe COPD and is on home O2. Other PMH of obesity, CHF, DM, A fib hx of ablation. We were consutled for assistance with fluid overload. He has some lower extremity edema, abdomen is distended and he states he is constipated. His renal function is normal, creatinine 0.76. He is making urine, and is a full code. (Samara Malik) Review of Systems Respiratory: COMPLAINS OF: Shortness of breath Cardiovascular: COMPLAINS OF: Dyspnea on Exertion, Lower Extremity Edema, DENIES: Chest pain (Samara Malik) Past Family Social History Allergies: Coded Allergies: No Known Allergies (Verified Allergy, Unknown, 06/11/17) Past Medical History DM II A fib s/p ablation HTN Obesity COPD Past Surgical History Cardiac Ablation Reported Medications Lasix (Furosemide) 40 Mg Tab 40 Mg PO BID Spironolactone 25 Mg Tab 25 Mg PO BIDPC Mcbain (Hydrocodone-Acetaminophen) 10-325 Mg Tab 1 Tab PO Q4H PRN Amiodarone (Amiodarone HCl) 200 Mg Tab 400 Mg PO Q12HR Eliquis (Apixaban) 5 Mg Tab 5 Mg PO BID Omeprazole 20 Mg Tab 40 Mg PO DAILY Oxygen (O2) Device 2 Liter JACQUELINE.CANULA CONTINUOUS Oxygen Concentrator Portable Gaseous 2 L/min via Nasal Canula Continuous For 99 months Oxygen tank (Oxygen) 1 Ea Tank 2 Liter JACQUELINE.CANULA CONTINUOUS Oxygen Concentrator Portable Gaseous 2 L/min via Nasal Cannula Continuous For 99 months Reported Lyrica (Pregabalin) 50 Mg Cap 50 Mg PO DAILY Ventolin Hfa 18 GM Inh (Albuterol Sulfate) 90 Mcg/Act Aer 1 Puff INH Q4H PRN Dulcolax Supp (Bisacodyl) 10 Mg Supp 10 Mg RECTAL DAILY PRN Senna S (Sennosides-Docusate Sodium) 8.6-50 Mg Tab 1-2 Tab PO Q12HR PRN Lantus Inj (Insulin Glargine) 1,000 Unit/10 Ml Vial 80 Units SQ BID Advair Diskus Inh (Fluticasone-Salmeterol Inh) 250-50 Mcg/Blist Aer 2 Puff INH BID Rinse mouth after use. Aspirin DR (Aspirin) 81 Mg Tabdr 81 Mg PO DAILY Hydralazine HCl 25 Mg Tablet 25 Mg PO TID Isosorbide Mononitrate ER (Isosorbide Mononitrate) 30 Mg Alexsander 30 Mg PO DAILY Duoneb (Ipratropium-Albuterol Neb) 0.5-2.5 Mg/3 Ml Neb 1 Nebule NEB Q4HR NEB PRN Bupropion HCl 100 Mg Tab 100 Mg PO DAILY Active Ordered Medications Current Medications Medications (Trade) Dose Ordered Sig/Whit Route Start Time Stop Time Status Last Admin (Cordarone) 400 mg Q12HR PO 07/02/17 21:00 07/03/17 08:23 (Eliquis) 5 mg BID PO 07/02/17 21:00 07/03/17 08:22 (Ecotrin Ec) 81 mg DAILY PO 07/03/17 09:00 07/03/17 08:24 (Wellbutrin) 100 mg DAILY PO 07/03/17 09:00 07/03/17 09:45 (Apresoline) 25 mg TID PO 07/02/17 18:00 07/03/17 08:24 (Mcbain 10-325 Mg) 1 tab Q4H PRN PO 07/02/17 16:00 07/03/17 08:24 (Duoneb Neb) 1 ampule Q4HR NEB PRN NEB 07/02/17 17:45 07/03/17 01:40 (Imdur) 30 mg DAILY PO 07/03/17 09:00 07/03/17 08:22 (Lyrica) 50 mg DAILY PO 07/03/17 09:00 07/03/17 08:21 (Aldactone) 25 mg BIDPC PO 07/02/17 18:00 07/03/17 08:28 (NS Flush) 2 ml UNSCH PRN IV FLUSH 07/02/17 16:15 (NS Flush) 2 ml BID IV FLUSH 07/02/17 21:00 07/03/17 08:20 (Tylenol) 650 mg Q4H PRN PO 07/02/17 16:15 (Zofran Inj) 4 mg Q6H PRN IVP 07/02/17 16:15 (Ambien) 5 mg HS PRN PO 07/02/17 16:15 07/02/17 21:17 (Narcan Inj) 0.4 mg UNSCH PRN IV PUSH 07/02/17 16:15 (Amira-Colace) 1 tab BID PO 07/02/17 21:00 07/03/17 08:22 (Milk Of Magnesia Liq) 30 ml Q12H PRN PO 07/02/17 16:15 (Senokot) 17.2 mg Q12H PRN PO 07/02/17 16:15 (Dulcolax Supp) 10 mg DAILY PRN RECTAL 07/02/17 16:15 (Lactulose Liq) 30 ml DAILY PRN PO 07/02/17 16:15 (Albuterol Neb) 1.25 mg Q4HR NEB PRN NEB 07/02/17 16:15 (Ativan) 0.5 mg Q8H PRN PO 07/02/17 16:15 (Ativan Inj) 0.5 mg Q6H PRN IV PUSH 07/02/17 16:15 (Catapres) 0.1 mg Q6H PRN PO 07/02/17 16:15 (Lasix Inj) 40 mg BID@09,18 IV PUSH 07/02/17 18:00 07/03/17 08:22 Azithromycin 500 mg/Sodium Chloride 250 ml @ 250 mls/hr Q24H IV 07/02/17 18:00 07/02/17 18:46 Ceftriaxone Sodium 1000 mg/ Sodium Chloride 100 ml @ 200 mls/hr Q24H IV 07/02/17 18:00 07/02/17 17:59 (Protonix) 40 mg DAILY PO 07/03/17 09:00 07/03/17 08:21 (D50w (Vial) Inj) 50 ml UNSCH PRN IV PUSH 07/02/17 23:15 (Glucagon Inj) 1 mg UNSCH PRN OTHER 07/02/17 23:15 (NovoLOG SUPPLEMENTAL SCALE) 1 ACHS SLIDING SCALE SQ 07/03/17 08:00 07/03/17 08:26 (Levemir Inj) 30 units BID SQ 07/03/17 09:00 07/03/17 08:26 Family History Non contributory Social History Former Smoker He is single Lives alone Full Code. (Samara Malik B. [employer]) Physical Exam Vital Signs Vital Signs Date Time Temp Pulse Resp B/P (MAP) Pulse Ox O2 Delivery O2 Flow Rate FiO2 07/03/17 08:00 97.7 76 20 127/72 (90) 97 07/03/17 08:00 88 07/03/17 07:32 Nasal Cannula 2.00 07/03/17 03:42 82 07/03/17 03:25 Nasal Cannula 2.00 07/03/17 03:25 97.5 87 20 147/76 (99) 97 07/03/17 01:41 98 Nasal Cannula 3.00 07/03/17 00:00 97.5 92 20 145/73 (97) 93 07/02/17 23:52 97 Nasal Cannula 3.00 07/02/17 23:41 89 07/02/17 21:15 Nasal Cannula 3.00 07/02/17 21:14 Nasal Cannula 4.00 07/02/17 20:00 98.8 97 20 135/73 (93) 92 07/02/17 19:42 94 07/02/17 18:25 98.3 92 18 144/71 (95) 97 07/02/17 17:32 92 21 147/72 (97) 95 Nasal Cannula 4.00 07/02/17 17:13 92 17 147/72 (97) 95 Nasal Cannula 4.00 07/02/17 14:44 103 24 136/65 (88) 94 Nasal Cannula 4.00 07/02/17 13:38 24 95 Nasal Cannula 4.00 07/02/17 13:38 95 Nasal Cannula 4.00 07/02/17 13:38 95 Room Air 4.00 07/02/17 13:03 98.2 106 36 120/58 (78) 77 Physical Exam Obese disheveled male On oxygen, diminished breath sounds. Abd round, firm, not tender S1/S2, RRR 2+ edema to lower extremities Laboratory Laboratory Tests Test 07/02/17 13:30 07/03/17 08:58 White Blood Count 13.1 7.0 Red Blood Count 4.14 4.35 Hemoglobin 8.9 9.3 Hematocrit 30.7 31.7 Mean Corpuscular Volume 74.0 72.9 Mean Corpuscular Hemoglobin 21.6 21.5 Mean Corpuscular Hemoglobin Concent 29.2 29.4 Red Cell Distribution Width 29.3 28.8 Platelet Count 240 229 Mean Platelet Volume 7.8 7.9 Neutrophils (%) (Auto) 81.2 84.5 Lymphocytes (%) (Auto) 10.4 10.5 Monocytes (%) (Auto) 7.8 4.8 Eosinophils (%) (Auto) 0.3 0.0 Basophils (%) (Auto) 0.3 0.2 Neutrophils # (Auto) 10.6 6.0 Lymphocytes # (Auto) 1.4 0.7 Monocytes # (Auto) 1.0 0.3 Eosinophils # (Auto) 0.0 0.0 Basophils # (Auto) 0.0 0.0 CBC Comment AUTO DIFF AUTO DIFF Differential Total Cells Counted 100 Neutrophils % (Manual) 80 Band Neutrophils % 5 Lymphocytes % 12 Monocytes % 3 Neutrophils # (Manual) 11.1 Nucleated Red Blood Cells 1 Differential Comment FINAL DIFF MANUAL AUTO DIFF CONFIRMED Platelet Estimate NORMAL NORMAL Platelet Morphology Comment NORMAL NORMAL Target Cells Prothrombin Time 11.2 Prothromb Time International Ratio 1.1 Activated Partial Thromboplast Time 25.6 Blood Urea Nitrogen 22 21 Creatinine 0.95 0.76 Random Glucose 126 190 Total Protein 6.7 Albumin 3.0 Calcium Level 8.8 9.5 Alkaline Phosphatase 146 Aspartate Amino Transf (AST/SGOT) 15 Alanine Aminotransferase (ALT/SGPT) 24 Total Bilirubin 0.5 Sodium Level 133 132 Potassium Level 3.8 3.5 Chloride Level 88 86 Carbon Dioxide Level 40.0 40.9 Anion Gap 5 5 Estimat Glomerular Filtration Rate 82 106 Total Creatine Kinase 23 Troponin I LESS THAN 0.02 B-Type Natriuretic Peptide 330 Lipase 62 Tear Drop Cells 1+ Ovalocytes 1+ (Samara Malik) Result Diagram: 07/03/17 0858 07/03/17 0858 Imaging Last 72 hours Impressions Chest X-Ray 07/02/17 1304 Signed Impressions: Service Date/Time: Sunday, July 02, 2017 13:44 - CONCLUSION: Common cardiomegaly without failure. Stable to improved from 06/17/17 Mario Pablo MD FACR Abdomen/Pelvis CT 07/02/17 0000 Signed Impressions: Service Date/Time: Sunday, July 02, 2017 15:13 - CONCLUSION: Negative CT scan of abdomen pelvis for acute process. There is no ascites. Mario Pablo MD FACR (Samara Malik) Assessment and Plan Problem List: (1) Fluid overload ICD Codes: E87.70 - Fluid overload, unspecified Plan: His renal function is normal continue diuretics, ordered Lasix 40 mg IV BID, Aldactone 25 mg BID Titrate as needed We will obtain UA to ensure no proteinuria Imaging negative for obstruction. The edema he has may be chronic, possibly lymphedema. Will continue to monitor. (2) Type 2 diabetes mellitus ICD Codes: E11.9 - Type 2 diabetes mellitus without complications Status: Acute Plan: Maintain glucose 140-180 mg/dL while hospitalized (Samara Malik) Assessment and Plan patient was seen and examined. Patient's renal function is normal. He has no proteinuria. Patient reports that he has chronic lower extremity edema. Recommend to change Lasix to PO. It should be noted that in the past he had developed ADITI. At this time, we have little to offer. We will sign off. (Bernabe Diamond MD) Samara Malik Jul 03, 2017 11:24 Bernabe Diamond MD Jul 03, 2017 20:34
--- NOTE | 2017-07-03 12:00 | PD.CONS ---
Consult Service Palliative Care Consult Requested By Dr. Gilliland . Primary Care Physician Jozef Gilliland MD . Reason for Consultation a. To assist with evaluation and management of symptoms including: pain, dyspnea, edema b. To assist medical decision maker(s) with: better understanding of current medical conditions; weighing benefits/burdens of medical treatment options; making medical treatment decisions. . HPI History of Present Illness This 57-year-old male, with a past history of end-stage COPD, CHF with chronic edema/anasarca, chronic pain syndrome, and diabetes, is now admitted here for the 10th time over the past 25 calendar months. He reports that he has also been admitted "several times" at [facility] over the past year or 2. His COPD is end-stage, he has been on home oxygen for more than a couple years, and he has repeated episodes of hypercapnic and hypoxic respiratory failure over the past 2 or 3 years. His most recent admission here was on 06/11/17 because of dyspnea and atrial flutter, and he underwent an ablation procedure during that hospitalization. He reports that he was admitted to [facility] last week because of dyspnea, but he signed out AMA "because they would not give me pain medicine for my back." He now has presented here on 07/02/17 because of dyspnea again. Upon presentation to the emergency department, his oxygen saturation was 77% on room air; other findings included: * Temp 98.2, pulse 103, respirations 24, blood pressure 136/65, oxygen saturation went from 77% on room air to 94% on 4 L * White count 13.1, hemoglobin 8.9 * Sodium 133, creatinine 0.95, albumin 3.0 * Troponin less than 0.02 * BNP 330 * Chest x-ray cardiomegaly * Abdomen/pelvis CT scan revealed no acute findings. In the multitude of hospitalizations over the past 2 years, the patient has been intubated and placed on mechanical ventilation a couple times, and has been treated with BiPAP for respiratory failure 4 other times. The patient was admitted to [facility] on 10/19/16, but revoked services on 11/13/16 when he was rehospitalized again. Numerous discussions with him since then have had him consistently reveal that his goals remain aggressive, not consistent with hospice care. His goals continue to be aggressive, including hospitalization "whenever needed," and intubation with mechanical ventilation "for a while but not too long." See discussion of goals below. The patient has chronic neck and back pain for several years, constant, positional at times. There was a time when he was on Percocet once or twice per day, but his doctors do not prescribe opiates for his chronic pain anymore. To deal with the pain, he reports that he smokes marijuana "every day or 2," and that helps his pain and helps him sleep. Dr. Gilliland has been the patient's primary physician when he is an outpatient, and in the admission note he notes that the patient will be discharged from his practice now. Palliative Care was consulted to assist with symptom management, and to again enter into discussions with the patient and his HCS daughter regarding his current illnesses, the prognosis, and the benefits and burdens of the various treatment choices. . Function/Cognitive Trajectory The patient has continued to decline over the last couple years. Overall, he is weaker but still able to take a few steps in his small trailer at home. He continues to live independently, but his brother and his daughter live nearby and assist at times. In addition, he has a friend, Zahra Rivera, who comes every week to lay out his medications for each day for him. He gets dyspneic with minimal exertion and sometimes is dyspneic at rest at home. . Review of Systems Constitutional: COMPLAINS OF: Fatigue, DENIES: Weight loss Endocrine: DENIES: Polyuria Eyes: DENIES: Eye inflammation Ears, nose, mouth, throat: DENIES: Epistaxis Respiratory: COMPLAINS OF: Cough, Wheezing, Shortness of breath Cardiovascular: COMPLAINS OF: Dyspnea on Exertion, Lower Extremity Edema, Orthopnea, DENIES: Chest pain, Syncope Gastrointestinal: DENIES: Abdominal pain, Bloody stools, Constipation, Diarrhea , Nausea, Vomiting blood Genitourinary: DENIES: Hematuria Musculoskeletal: COMPLAINS OF: Back pain (Chronic), Neck pain (Chronic), DENIES : Joint Swelling Integumentary: DENIES: Rash Hematologic/Lymphatics: COMPLAINS OF: Bruising (Frequently on his arms) Immunologic/Allergic: DENIES: Urticaria Neurologic: COMPLAINS OF: Seizures (Remote history), DENIES: Localized weakness , Paresthesias Psychiatric: COMPLAINS OF: Depression, DENIES: Hallucinations, Agitation Past Family Social History Coded Allergies: No Known Allergies (Verified Allergy, Unknown, 2/26/18) Past Medical History * COPD, end-stage, with frequent exacerbations and respiratory failure * Frequent hospitalizations for dyspnea and respiratory failure * Congestive heart failure * CAD * Chronic pain syndrome, neck and back pain * Continued cigarette use, frequent marijuana use * History of alcohol abuse, reportedly not drinking for 9 months now * Diabetes, on insulin and oral agents * Hyperlipidemia * Hypertension * GERD * Remote history of seizures * Neuropathy * Depression . Past Surgical History * Excision of wart from leg many years ago * Cardiac cath * I&D of abscess on his back 2016 * EGD 02/2017 revealed esophagitis * Cardiac ablation procedure May 2017 . Reported Medications Reported Meds & Active Scripts Active Lasix (Furosemide) 40 Mg Tab 40 Mg PO BID Spironolactone 25 Mg Tab 25 Mg PO BIDPC [place] (Hydrocodone-Acetaminophen) 10-325 Mg Tab 1 Tab PO Q4H PRN Amiodarone (Amiodarone HCl) 200 Mg Tab 400 Mg PO Q12HR Eliquis (Apixaban) 5 Mg Tab 5 Mg PO BID Omeprazole 20 Mg Tab 40 Mg PO DAILY Oxygen (O2) Device 2 Liter JACQUELINE.CANULA CONTINUOUS Oxygen Concentrator Portable Gaseous 2 L/min via Nasal Canula Continuous For 99 months Oxygen tank (Oxygen) 1 Ea Tank 2 Liter JACQUELINE.CANULA CONTINUOUS Oxygen Concentrator Portable Gaseous 2 L/min via Nasal Cannula Continuous For 99 months Reported Lyrica (Pregabalin) 50 Mg Cap 50 Mg PO DAILY Ventolin Hfa 18 GM Inh (Albuterol Sulfate) 90 Mcg/Act Aer 1 Puff INH Q4H PRN Dulcolax Supp (Bisacodyl) 10 Mg Supp 10 Mg RECTAL DAILY PRN Senna S (Sennosides-Docusate Sodium) 8.6-50 Mg Tab 1-2 Tab PO Q12HR PRN Lantus Inj (Insulin Glargine) 1,000 Unit/10 Ml Vial 80 Units SQ BID Advair Diskus Inh (Fluticasone-Salmeterol Inh) 250-50 Mcg/Blist Aer 2 Puff INH BID Rinse mouth after use. Aspirin DR (Aspirin) 81 Mg Tabdr 81 Mg PO DAILY Hydralazine HCl 25 Mg Tablet 25 Mg PO TID Isosorbide Mononitrate ER (Isosorbide Mononitrate) 30 Mg Alexsander 30 Mg PO DAILY Duoneb (Ipratropium-Albuterol Neb) 0.5-2.5 Mg/3 Ml Neb 1 Nebule NEB Q4HR NEB PRN Bupropion HCl 100 Mg Tab 100 Mg PO DAILY . Current Medications Medications (Trade) Dose Ordered Sig/Whit Route Start Time Stop Time Status Last Admin (Cordarone) 400 mg Q12HR PO 07/02/17 21:00 07/03/17 08:23 (Eliquis) 5 mg BID PO 07/02/17 21:00 07/03/17 08:22 (Ecotrin Ec) 81 mg DAILY PO 07/03/17 09:00 07/03/17 08:24 (Wellbutrin) 100 mg DAILY PO 07/03/17 09:00 07/03/17 09:45 (Apresoline) 25 mg TID PO 07/02/17 18:00 07/03/17 08:24 ([place] 10-325 Mg) 1 tab Q4H PRN PO 07/02/17 16:00 07/03/17 08:24 (Duoneb Neb) 1 ampule Q4HR NEB PRN NEB 07/02/17 17:45 07/03/17 01:40 (Imdur) 30 mg DAILY PO 07/03/17 09:00 07/03/17 08:22 (Lyrica) 50 mg DAILY PO 07/03/17 09:00 07/03/17 08:21 (Aldactone) 25 mg BIDPC PO 07/02/17 18:00 07/03/17 08:28 (NS Flush) 2 ml UNSCH PRN IV FLUSH 07/02/17 16:15 (NS Flush) 2 ml BID IV FLUSH 07/02/17 21:00 07/03/17 08:20 (Tylenol) 650 mg Q4H PRN PO 07/02/17 16:15 (Zofran Inj) 4 mg Q6H PRN IVP 07/02/17 16:15 (Ambien) 5 mg HS PRN PO 07/02/17 16:15 07/02/17 21:17 (Narcan Inj) 0.4 mg UNSCH PRN IV PUSH 07/02/17 16:15 (Amira-Colace) 1 tab BID PO 07/02/17 21:00 07/03/17 08:22 (Milk Of Magnesia Liq) 30 ml Q12H PRN PO 07/02/17 16:15 (Senokot) 17.2 mg Q12H PRN PO 07/02/17 16:15 (Dulcolax Supp) 10 mg DAILY PRN RECTAL 07/02/17 16:15 (Lactulose Liq) 30 ml DAILY PRN PO 07/02/17 16:15 (Albuterol Neb) 1.25 mg Q4HR NEB PRN NEB 07/02/17 16:15 (Ativan) 0.5 mg Q8H PRN PO 07/02/17 16:15 (Ativan Inj) 0.5 mg Q6H PRN IV PUSH 07/02/17 16:15 (Catapres) 0.1 mg Q6H PRN PO 07/02/17 16:15 (Lasix Inj) 40 mg BID@,18 IV PUSH 07/02/17 18:00 07/03/17 08:22 Azithromycin 500 mg/Sodium Chloride 250 ml @ 250 mls/hr Q24H IV 07/02/17 18:00 07/02/17 18:46 Ceftriaxone Sodium 1000 mg/ Sodium Chloride 100 ml @ 200 mls/hr Q24H IV 07/02/17 18:00 07/02/17 17:59 (Protonix) 40 mg DAILY PO 07/03/17 09:00 07/03/17 08:21 (D50w (Vial) Inj) 50 ml UNSCH PRN IV PUSH 07/02/17 23:15 (Glucagon Inj) 1 mg UNSCH PRN OTHER 07/02/17 23:15 (NovoLOG SUPPLEMENTAL SCALE) 1 ACHS SLIDING SCALE SQ 07/03/17 08:00 07/03/17 08:26 (Levemir Inj) 30 units BID SQ 07/03/17 09:00 07/03/17 08:26 Family History He reports his father in his 20s of cirrhosis of the liver, and his mother when she was older of "old age." The patient's 2 sons and 1 of his 2 daughters have substance abuse difficulties. . Substance Use Tobacco: Longtime smoker of 1.5 packs per day, claims to be smoking just 0.5 packs per day now. Alcohol: History of abuse, drinking 12 pack of beer and whiskey for several years, but says he has had no alcohol now for 9 months. Prescription med abuse: Has been on chronic opiates in the past. Illicits: Uses marijuana regularly . Psychosocial History The patient was born in [place], [place] and has lived here in the [facility] for many years. He completed the eighth grade of school. He has not been . He has 4 children; his 2 sons are both incarcerated due to drug crime convictions. One daughter has been estranged from him for a long time and also reportedly has drug problems. His second daughter Monae lives near him and is helpful to him. The patient worked "odd jobs" off and on over the years, but has not been able to work the last few years due to his medical conditions. . Spiritual/Cultural Factors The patient says that temple and spirituality have not been important to him, and he does not want teletype installer visits while he is here at the hospital. . Health Care Surrogate: Copy in medical record Date completed: January 2016 . Health Care Surrogate(s): Daughter Monae . Today's verbally stated goals: The patient's goals are consistent with what he has been saying in recent months : He wants continued aggressive care, plans on returning to the hospital each time his symptoms are worse, wants to be resuscitated, does NOT want to reengage hospice services, and will accept intubation and mechanical ventilation again. He does understand that a time will come when he will not be able to come off of life support, and he notes that his daughter then will make the decision to withdraw him and allow him to peacefully. The patient' s daughter does understand her role in this and accepts it. . Family/friends goals: The patient's daughter supports the patient's wishes and goals . Ethical and Legal Issues There are no ethical issues that would impact his care or decision making at this time. The patient has capacity for decision-making. In January 2016, he designated his daughter Monae as healthcare surrogate. . Physical Exam Vital Signs Date Time Temp Pulse Resp B/P (MAP) Pulse Ox O2 Delivery O2 Flow Rate FiO2 07/03/17 08:00 97.7 76 20 127/72 (90) 97 07/03/17 08:00 88 07/03/17 07:32 Nasal Cannula 2.00 07/03/17 03:42 82 07/03/17 03:25 Nasal Cannula 2.00 07/03/17 03:25 97.5 87 20 147/76 (99) 97 07/03/17 01:41 98 Nasal Cannula 3.00 07/03/17 00:00 97.5 92 20 145/73 (97) 93 07/02/17 23:52 97 Nasal Cannula 3.00 07/02/17 23:41 89 07/02/17 21:15 Nasal Cannula 3.00 07/02/17 21:14 Nasal Cannula 4.00 07/02/17 20:00 98.8 97 20 135/73 (93) 92 07/02/17 19:42 94 07/02/17 18:25 98.3 92 18 144/71 (95) 97 07/02/17 17:32 92 21 147/72 (97) 95 Nasal Cannula 4.00 07/02/17 17:13 92 17 147/72 (97) 95 Nasal Cannula 4.00 07/02/17 14:44 103 24 136/65 (88) 94 Nasal Cannula 4.00 07/02/17 13:38 24 95 Nasal Cannula 4.00 07/02/17 13:38 95 Nasal Cannula 4.00 07/02/17 13:38 95 Room Air 4.00 07/02/17 13:03 98.2 106 36 120/58 (78) 77 Exam CONSTITUTIONAL/GENERAL: This is an obese, chronically ill appearing patient, in no apparent distress, sitting up in the chair. TUBES/LINES/DRAINS: Nasal oxygen, peripheral IV SKIN: No jaundice, rashes, or lesions. Ecchymoses on upper extremities. No wounds seen anteriorly. Skin temperature appropriate. Not diaphoretic. HEAD: Atraumatic. Normocephalic. EYES: Pupils equal and round and reactive. Extraocular motions intact. No scleral icterus. No injection or drainage. Fundi not examined. ENT: Hearing grossly normal. Nose without bleeding or purulent drainage. Throat without visible erythema, exudates, masses, or lesions. NECK: Trachea midline. Supple, nontender. No palpable thyroid enlargement or nodularity. CARDIOVASCULAR: Regular rate and rhythm without murmurs, gallops, or rubs. No JVD. Unable to palpate ankle/foot pulses due to chronic edema RESPIRATORY/CHEST: Symmetric, unlabored respirations. Diminished breath sounds bilateral, a couple scattered rales noted. GASTROINTESTINAL: Abdomen soft, non-tender, massively obese. No hepato- splenomegaly, or palpable masses. No guarding. Bowel sounds present. GENITOURINARY: Without palpable bladder distension. Mcclendon catheter in place. MUSCULOSKELETAL: Extremities without cyanosis, but he has chronic 4+ doughy edema of both legs and feet. No joint tenderness or effusion noted. No calf tenderness. No mottling or clubbing. LYMPHATICS: No palpable cervical or supraclavicular adenopathy. NEUROLOGICAL: Awake and alert. Motor and sensory grossly within normal limits. Follows commands. Cognitively sharp. Moves all extremities. PSYCHIATRIC: No obvious anxiety/depression. no apparent hallucinations or other psychotic thought process. . Diagnostic Tests Laboratory Laboratory Tests Test 07/02/17 13:30 07/03/17 08:58 White Blood Count 13.1 TH/MM3 (4.0-11.0) 7.0 TH/MM3 (4.0-11.0) Red Blood Count 4.14 MIL/MM3 (4.50-5.90) 4.35 MIL/MM3 (4.50-5.90) Hemoglobin 8.9 GM/DL (13.0-17.0) 9.3 GM/DL (13.0-17.0) Hematocrit 30.7 % (39.0-51.0) 31.7 % (39.0-51.0) Mean Corpuscular Volume 74.0 FL (80.0-100.0) 72.9 FL (80.0-100.0) Mean Corpuscular Hemoglobin 21.6 PG (27.0-34.0) 21.5 PG (27.0-34.0) Mean Corpuscular Hemoglobin Concent 29.2 % (32.0-36.0) 29.4 % (32.0-36.0) Red Cell Distribution Width 29.3 % (11.6-17.2) 28.8 % (11.6-17.2) Platelet Count 240 TH/MM3 (150-450) 229 TH/MM3 (150-450) Mean Platelet Volume 7.8 FL (7.0-11.0) 7.9 FL (7.0-11.0) Neutrophils (%) (Auto) 81.2 % (16.0-70.0) 84.5 % (16.0-70.0) Lymphocytes (%) (Auto) 10.4 % (9.0-44.0) 10.5 % (9.0-44.0) Monocytes (%) (Auto) 7.8 % (0.0-8.0) 4.8 % (0.0-8.0) Eosinophils (%) (Auto) 0.3 % (0.0-4.0) 0.0 % (0.0-4.0) Basophils (%) (Auto) 0.3 % (0.0-2.0) 0.2 % (0.0-2.0) Neutrophils # (Auto) 10.6 TH/MM3 (1.8-7.7) 6.0 TH/MM3 (1.8-7.7) Lymphocytes # (Auto) 1.4 TH/MM3 (1.0-4.8) 0.7 TH/MM3 (1.0-4.8) Monocytes # (Auto) 1.0 TH/MM3 (0-0.9) 0.3 TH/MM3 (0-0.9) Eosinophils # (Auto) 0.0 TH/MM3 (0-0.4) 0.0 TH/MM3 (0-0.4) Basophils # (Auto) 0.0 TH/MM3 (0-0.2) 0.0 TH/MM3 (0-0.2) CBC Comment AUTO DIFF AUTO DIFF Differential Total Cells Counted 100 Neutrophils % (Manual) 80 % (16-70) Band Neutrophils % 5 % (0-6) Lymphocytes % 12 % (9-44) Monocytes % 3 % (0-8) Neutrophils # (Manual) 11.1 TH/MM3 (1.8-7.7) Nucleated Red Blood Cells 1 /100 WBC (0-0) Differential Comment FINAL DIFF MANUAL AUTO DIFF CONFIRMED Platelet Estimate NORMAL (NORMAL) NORMAL (NORMAL) Platelet Morphology Comment NORMAL (NORMAL) NORMAL (NORMAL) Target Cells (NORMAL) Prothrombin Time 11.2 SEC (9.8-11.6) Prothromb Time International Ratio 1.1 RATIO Activated Partial Thromboplast Time 25.6 SEC (24.3-30.1) Blood Urea Nitrogen 22 MG/DL (7-18) 21 MG/DL (7-18) Creatinine 0.95 MG/DL (0.60-1.30) 0.76 MG/DL (0.60-1.30) Random Glucose 126 MG/DL (74-106) 190 MG/DL (74-106) Total Protein 6.7 GM/DL (6.4-8.2) Albumin 3.0 GM/DL (3.4-5.0) Calcium Level 8.8 MG/DL (8.5-10.1) 9.5 MG/DL (8.5-10.1) Alkaline Phosphatase 146 U/L (45-117) Aspartate Amino Transf (AST/SGOT) 15 U/L (15-37) Alanine Aminotransferase (ALT/SGPT) 24 U/L (12-78) Total Bilirubin 0.5 MG/DL (0.2-1.0) Sodium Level 133 MEQ/L (136-145) 132 MEQ/L (136-145) Potassium Level 3.8 MEQ/L (3.5-5.1) 3.5 MEQ/L (3.5-5.1) Chloride Level 88 MEQ/L (98-107) 86 MEQ/L (98-107) Carbon Dioxide Level 40.0 MEQ/L (21.0-32.0) 40.9 MEQ/L (21.0-32.0) Anion Gap 5 MEQ/L (5-15) 5 MEQ/L (5-15) Estimat Glomerular Filtration Rate 82 ML/MIN (>89) 106 ML/MIN (>89) Total Creatine Kinase 23 U/L (39-308) Troponin I LESS THAN 0.02 NG/ML B-Type Natriuretic Peptide 330 PG/ML (0-100) Lipase 62 U/L (73-393) Tear Drop Cells 1+ (NORMAL) Ovalocytes 1+ (NORMAL) Result Diagram: 07/03/17 0858 07/03/17 0858 Imaging Last Impressions Chest X-Ray 07/02/17 1304 Signed Impressions: Service Date/Time: Sunday, July 02, 2017 13:44 - CONCLUSION: Common cardiomegaly without failure. Stable to improved from 06/17/17 Mario Pablo MD FACR Abdomen/Pelvis CT 07/02/17 0000 Signed Impressions: Service Date/Time: Sunday, July 02, 2017 15:13 - CONCLUSION: Negative CT scan of abdomen pelvis for acute process. There is no ascites. Mario Pablo MD FACR Patient/Family Conference Present at Family Conference: Patient's daughter Monae . Family Conference Time (mins): 29 Family Conference Location: Telephone Issues Discussed: * Palliative care role, purpose, approach * Hospice care role, purpose, approach * Additional medical, psychosocial, and spiritual history * Patients general health, functional status, and cognitive changes in the months leading up to the current hospitalization * Patient/family understanding of the current medical problems * Patient/family understanding of prognosis * Patients goals of care as best understood from advance directives and/or conversations and/or values * Current medical treatment options and benefits/burdens of those options * Likely scenarios comparing ongoing aggressive care with a transition to comfort measures only * Questions answered to the best of my ability * Palliative care contact information provided . Assessment and Plan Disease Oriented Problem List: (1) Recurrent respiratory failure (2) End-stage COPD, 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 (3) Congestive heart failure (4) Chronic anemia (5) Chronic edema/anasarca (6) Chronic pain, neck and back pain (7) Morbid obesity (8) Diabetes, currently on insulin (9) Hyperlipidemia (10) Hypertension (11) GERD (12) Remote history of seizures (13) History of alcohol abuse, reportedly sober for 9 months (14) Marijuana use on a regular basis (15) Neuropathy (16) Depression Symptom Scale: (1) Pain 0-10 Scale: 3 (Chronic neck and back) (2) Dyspnea 0-10 Scale: Unable to quantify Pertinent Non-Medical Issues Psychosocial: Born in [place], has lived in this area many years; never ; 4 children, both sons incarcerated. Disabled, lives in a small trailer. Spiritual: The patient says that temple and spirituality have not been important to him, and he does not want teletype installer visits while he is here at the hospital. Legal: The patient has capacity for decision-making. In January 2016, he designated his daughter Monae as healthcare surrogate. Ethical issues impacting care: None . Important Contacts Daughter: Monae [facility] Friend: Zahra Rivera [phone] . Prognosis The patient's prognosis is poor. He has end-stage COPD and recurrent CHF with multiple other comorbidities. He is appropriate for hospice services if the time comes that his goals become comfort oriented. . Code Status: Full Code Plan * FULL CODE, confirmed by patient on 07/03/17 * DECISION-MAKING: The patient has capacity for decision-making. In January 2016, he designated his daughter Monae as healthcare surrogate; the patient and his daughter both confirm that arrangement 07/03/17. * GOALS: The patient's goals are consistent with what he has been saying in recent months: He wants continued aggressive care, plans on returning to the hospital each time his symptoms are worse, wants to be resuscitated, does NOT want to reengage hospice services, and will accept intubation and mechanical ventilation again. He does understand that a time will come when he will not be able to come off of life support, and he notes that his daughter then will make the decision to withdraw him and allow him to peacefully. The patient' s daughter does understand her role in this and accepts it. * SYMPTOMS: The patient's neck and back pain is chronic and unchanging; I do not believe long-term opiate treatment will be appropriate for him at this time , and he manages his pain at home with marijuana. His dyspnea/COPD is being managed in the usual way, and he actually has experienced some improvement overnight. I have no additional medication recommendations at this time. * Dr. Gilliland has reported that the patient will be discharged from his outpatient practice, and Case Management has been consulted to assist... * Palliative Care will be following the patient PRN during this hospitalization. . Time Spent Total Floor Time (mins): 88 Face to Face Time (mins): 41 >50% Counseling/Coord of Care: Yes Thank you for the opportunity to participate in the care of Mr. Guerra. Karla Roque MD Jul 03, 2017 12:00
[2017-07-03 14:30] LABS: BILIRUBIN, URINE NEG (NEG); BLOOD, URINE NEG (NEG); GLUCOSE,URINE NEG (NEG); HYALINE CAST, URINE 1 /lpf (RARE); KETONE, URINE NEG (NEG); NITRITE,URINE NEG (NEG); PH, URINE 7.5 (5.0-8.5); URINE COLOR YELLOW (YELLW/STRAW); URINE LEUKOCYTE ESTERASE NEG (NEG)
--- NOTE | 2017-07-03 16:07 | EKG ---
Date Performed: 07/02/2017 Time Performed: 13:28:39 PTAGE: 57 years EKG: SINUS TACHYCARDIA INCOMPLETE RIGHT BUNDLE BRANCH BLOCK NONSPECIFIC ST DEPRESSION ABNORMAL R HYTHM ECG PREVIOUS TRACING : 06/19/2017 05.00 No significant change from previous tracing noted. DOCTOR: Bobby Reyna Interpretating Date/Time 07/03/2017 16:06:12
[2017-07-03] MEDS: AZITHROMYCIN INJ 500 MG in SODIUM CHLOR 0.9% 250 ML INJ 250 ML IV SCH (18:56)
[2017-07-03] MEDS: cefTRIAXone INJ 1,000 MG in SODIUM CHLORIDE 0.9% INJ 100 ML IV SCH (18:57)
[2017-07-04] VITALS (11 sets, daily range): BP systolic 112–128; BP diastolic 55–68; PULSE 79–89; RESP 17–20; TEMP 95.9–98.4; O2SAT 93–98
[2017-07-04] MEDS: ACETAMINOPHEN/HYDROcodone 325 MG/10 MG TAB PO PRN ×5 (03:45→21:16)
[2017-07-04 06:57] LABS: AUTOMATED NEUTROPHIL # 6.8 TH/MM3 (1.8-7.7); BASOPHIL % 0.3 % (0.0-2.0); EOSINOPHIL # 0.1 TH/MM3 (0-0.4); EOSINOPHIL % 1.1 % (0.0-4.0); HEMATOCRIT 31.7 % (39.0-51.0); HEMOGLOBIN 9.4 GM/DL (13.0-17.0); LYMPH % 14.8 % (9.0-44.0); LYMPHOCYTE # 1.3 TH/MM3 (1.0-4.8); MEAN CELL VOLUME 71.9 FL (80.0-100.0); MEAN CORPUSCULAR HEMOGLOBIN 21.3 PG (27.0-34.0); MEAN PLATELET VOLUME 8.1 FL (7.0-11.0); MONO % 6.3 % (0.0-8.0); MONOCYTE # 0.6 TH/MM3 (0-0.9); NEUT % 77.5 % (16.0-70.0); PLATELET COUNT 253 TH/MM3 (150-450); RED BLOOD COUNT 4.41 MIL/MM3 (4.50-5.90); RED CELL DISTRIBUTION WIDTH 27.6 % (11.6-17.2); WHITE BLOOD COUNT 8.7 TH/MM3 (4.0-11.0)
[2017-07-04 07:10] LABS: MEAN CORPUSCULAR HGB CONC 29.6 % (32.0-36.0)
[2017-07-04 07:23] LABS: BICARBONATE 39.3 MEQ/L (21.0-32.0); CALCIUM 8.9 MG/DL (8.5-10.1); CREATININE 0.82 MG/DL (0.60-1.30)
[2017-07-04] MEDS: MEDIUM DOSE INSULIN NOVOLOG SUPPLEMENTAL SCALE SQ SCH ×4 (08:00→20:48)
[2017-07-04 08:36] LABS: OVALOCYTES 1+ (NORMAL); TEARDROP RBCS 1+ (NORMAL)
[2017-07-04] MEDS: APIXABAN 5 MG TABLET PO SCH ×2 (08:48→20:50)
[2017-07-04] MEDS: PANTOPRAZOLE SOD 40 MG DELAYED RELEASE TAB PO SCH (08:48)
[2017-07-04] MEDS: hydrALAZINE HCL 25 MG TAB PO SCH ×3 (08:48→17:11)
[2017-07-04] MEDS: ISOSORBIDE MONONITRATE 30 MG CR TAB (IMDUR) PO SCH (08:48)
[2017-07-04] MEDS: PREGABALIN 25 MG CAP PO SCH (08:48)
[2017-07-04] MEDS: FUROSEMIDE 40 MG/4 ML VIAL IV PUSH SCH (08:49)
[2017-07-04] MEDS: AMIODARONE 200 MG TAB PO SCH ×2 (08:49→20:49)
[2017-07-04] MEDS: DOCUSATE SODIUM 50 MG/SENNA 8.6 MG TAB PO SCH ×2 (08:49→20:49)
[2017-07-04] MEDS: buPROPion HCL 100 MG TAB PO SCH (08:49)
[2017-07-04] MEDS: SPIRONOLACTONE 25 MG TAB PO SCH ×2 (08:49→17:11)
[2017-07-04] MEDS: ASPIRIN EC 81 MG TABEC PO SCH (08:49)
[2017-07-04] MEDS: INSULIN DETEMIR 100 UNITS/ML VIAL SQ SCH ×2 (08:50→20:47)
[2017-07-04] MEDS: SODIUM CHLORIDE 0.9% FLUSH 10 ML FLUSH IV FLUSH SCH ×2 (08:50→20:55)
--- NOTE | 2017-07-04 09:40 | HHI.FPPN ---
Subjective Remarks no bm for several days c/o abd pain d/t constip c/o fluid overload and edema d/w RN Objective Vitals Vital Signs Date Time Temp Pulse Resp B/P (MAP) Pulse Ox O2 Delivery O2 Flow Rate FiO2 07/04/17 08:00 97.3 81 18 118/62 (80) 98 07/04/17 03:43 83 07/04/17 03:40 98.0 81 20 128/66 (86) 96 07/04/17 00:00 Nasal Cannula 3.00 07/04/17 00:00 98.4 85 20 122/58 (79) 96 07/03/17 23:45 85 07/03/17 20:00 Nasal Cannula 3.00 07/03/17 19:41 90 07/03/17 19:00 97.7 106 17 112/72 (85) 07/03/17 16:00 79 07/03/17 16:00 97.3 89 19 126/60 (82) 97 07/03/17 16:00 97.6 85 20 116/60 (78) 96 07/03/17 12:00 82 07/03/17 12:00 97.7 81 20 122/57 (78) 97 I/O 07/03/17 07/03/17 07/03/17 07/04/17 07/04/17 07/04/17 07:00 15:00 23:00 07:00 15:00 23:00 Intake Total 480 ml Output Total 1250 ml 1100 ml Balance 480 ml -1250 ml -1100 ml Intake Oral 480 ml Output Urine Total 1250 ml 1100 ml # Voids 2 # Bowel Movements 0 0 Result Diagram: 07/04/17 0545 07/04/17 0545 Objective Remarks GENERAL: SKIN: Warm and dry. stasis erythema b legs to mid tibias HEAD: Atraumatic. Normocephalic. EYES: Pupils equal and round. No scleral icterus. No injection or drainage. ENT: No nasal bleeding or discharge. Mucous membranes pink and moist. NECK: Trachea midline. No JVD. CARDIOVASCULAR: Regular rate and rhythm. RESPIRATORY: No accessory muscle use. Clear to auscultation. Breath sounds equal bilaterally. GASTROINTESTINAL: Abdomen soft, non-tender, nondistended. Hepatic and splenic margins not palpable. MUSCULOSKELETAL: Extremities with 3 plus edema bilat NEUROLOGICAL: Awake and alert. No obvious cranial nerve deficits. Motor grossly within normal limits. 4 out of 5 muscle strength in the arms and legs. Normal speech. PSYCHIATRIC: Appropriate mood and affect; insight and judgment normal. Medications and IVs Current Medications Medications (Trade) Dose Ordered Sig/Whit Route Start Time Stop Time Status Last Admin (Cordarone) 400 mg Q12HR PO 07/02/17 21:00 07/04/17 08:49 (Eliquis) 5 mg BID PO 07/02/17 21:00 07/04/17 08:48 (Ecotrin Ec) 81 mg DAILY PO 07/03/17 09:00 07/04/17 08:49 (Wellbutrin) 100 mg DAILY PO 07/03/17 09:00 07/04/17 08:49 (Apresoline) 25 mg TID PO 07/02/17 18:00 07/04/17 08:48 (Bishop 10-325 Mg) 1 tab Q4H PRN PO 07/02/17 16:00 07/04/17 09:05 (Duoneb Neb) 1 ampule Q4HR NEB PRN NEB 07/02/17 17:45 07/03/17 01:40 (Imdur) 30 mg DAILY PO 07/03/17 09:00 07/04/17 08:48 (Lyrica) 50 mg DAILY PO 07/03/17 09:00 07/04/17 08:48 (Aldactone) 25 mg BIDPC PO 07/02/17 18:00 07/04/17 08:49 (NS Flush) 2 ml UNSCH PRN IV FLUSH 07/02/17 16:15 (NS Flush) 2 ml BID IV FLUSH 07/02/17 21:00 07/04/17 08:50 (Tylenol) 650 mg Q4H PRN PO 07/02/17 16:15 (Zofran Inj) 4 mg Q6H PRN IVP 07/02/17 16:15 (Ambien) 5 mg HS PRN PO 07/02/17 16:15 07/02/17 21:17 (Narcan Inj) 0.4 mg UNSCH PRN IV PUSH 07/02/17 16:15 (Amira-Colace) 1 tab BID PO 07/02/17 21:00 07/04/17 08:49 (Milk Of Magnesia Liq) 30 ml Q12H PRN PO 07/02/17 16:15 07/03/17 21:00 (Senokot) 17.2 mg Q12H PRN PO 07/02/17 16:15 (Dulcolax Supp) 10 mg DAILY PRN RECTAL 07/02/17 16:15 (Lactulose Liq) 30 ml DAILY PRN PO 07/02/17 16:15 (Albuterol Neb) 1.25 mg Q4HR NEB PRN NEB 07/02/17 16:15 (Ativan) 0.5 mg Q8H PRN PO 07/02/17 16:15 (Ativan Inj) 0.5 mg Q6H PRN IV PUSH 07/02/17 16:15 (Catapres) 0.1 mg Q6H PRN PO 07/02/17 16:15 Azithromycin 500 mg/Sodium Chloride 250 ml @ 250 mls/hr Q24H IV 07/02/17 18:00 07/03/17 18:56 Ceftriaxone Sodium 1000 mg/ Sodium Chloride 100 ml @ 200 mls/hr Q24H IV 07/02/17 18:00 07/03/17 18:57 (Protonix) 40 mg DAILY PO 07/03/17 09:00 07/04/17 08:48 (D50w (Vial) Inj) 50 ml UNSCH PRN IV PUSH 07/02/17 23:15 (Glucagon Inj) 1 mg UNSCH PRN OTHER 07/02/17 23:15 (NovoLOG SUPPLEMENTAL SCALE) 1 ACHS SLIDING SCALE SQ 07/03/17 08:00 07/03/17 21:01 (Levemir Inj) 30 units BID SQ 07/03/17 09:00 07/04/17 08:50 (Lasix) 40 mg BID@,18 PO 07/04/17 18:00 UNV A/P Assessment and Plan IV ABX IV STEROIDS CHANGE LASIX BACK TO IV BID AND INCREASE SPIRONOLACTONE. MAY NEED TO ADD METOLAZONE AGAIN. DUONEBS QID AND PRN INSULIN SSI AND LONG ACTING AM LABS PULMONARY CONSULT NEPHROLOGY CONSULT PALLIATIVE CONSULT ELIQUIS FOR DVT PROPHYLAXIS AND AF OMEPRAZOLE FOR GI PROPHYLAXIS SEE ORDERS FOR MED AND LAB CHANGES. CONSULT CM: INFORMED PT THAT HE WILL NEED TO FIND A NEW PCP DUE TO NONCOMPLIANCE AND BEING DISRUPTIVE IN MY OFFICE.. HE IS OK WITH THAT. 30 min spent with patient half of which was counseling and coordination of care. Discharge Planning HOME OVIDIO WITH [facility], PT NEEDS TO BE BACK ON HOSPICE AGAIN YET REFUSES. Physician Attestation pt has been obs, pt needs further inpt stay as outlined above. likely dc tomorrow or pt would bounce back to ER as he has had numerous readmits. 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 (6) Morbid obesity (7) Recurrent respiratory failure (8) Marijuana use on a regular basis (9) Neuropathy (10) Hyperlipidemia (11) Remote history of seizures (12) Pain (13) History of alcohol abuse, reportedly sober for 9 months (14) Chronic anemia (15) Hypertension (16) Diabetes, currently on insulin (17) GERD (18) Chronic pain, neck and back pain (19) DVT prophylaxis ICD Codes: Z79.01 - DVT prophylaxis Status: Acute (20) Atrial flutter with rapid ventricular response ICD Codes: I48.92 - Unspecified atrial flutter (21) Tobacco abuse ICD Codes: Z72.0 - Tobacco abuse Status: Chronic (22) Gastritis ICD Codes: K29.70 - Gastritis, unspecified, without bleeding (23) Respiratory distress ICD Codes: R06.00 - Dyspnea, unspecified Status: Acute (24) Anasarca ICD Codes: R60.1 - Generalized edema Status: Acute (25) Pickwickian syndrome ICD Codes: E66.2 - Morbid (severe) obesity with alveolar hypoventilation (26) Esophagitis ICD Codes: K20.9 - Esophagitis, unspecified Problem Qualifiers (1) Fluid overload: Qualified Codes: E87.79 - Other fluid overload Jozef Gilliland MD Jul 04, 2017 09:40
[2017-07-04] MEDS ORDERED: MINERAL OIL EMULSION 55% PO PRN (10:00)
[2017-07-04] MEDS ORDERED: MINERAL OIL ENEMA 118 ML BTL RECTAL PRN (10:00)
[2017-07-04] MEDS: RESP: ALBUTEROL 2.5 MG/IPRATROPIUM 0.5 MG NEB (PRN) NEB ×2 (15:30→20:31)
[2017-07-04] MEDS: AZITHROMYCIN INJ 500 MG in SODIUM CHLOR 0.9% 250 ML INJ 250 ML IV SCH (17:09)
[2017-07-04] MEDS: cefTRIAXone INJ 1,000 MG in SODIUM CHLORIDE 0.9% INJ 100 ML IV SCH (17:10)
[2017-07-04] MEDS: FUROSEMIDE 40 MG TAB PO SCH (17:11)
[2017-07-05] VITALS (8 sets, daily range): BP systolic 109–140; BP diastolic 56–69; PULSE 76–92; RESP 19–22; TEMP 97.5–98.1; O2SAT 96–98
[2017-07-05] MEDS: ACETAMINOPHEN/HYDROcodone 325 MG/10 MG TAB PO PRN ×6 (01:06→21:48)
[2017-07-05] MEDS: RESP: ALBUTEROL 2.5 MG/IPRATROPIUM 0.5 MG NEB (PRN) NEB ×4 (03:26→23:26)
[2017-07-05 07:23] LABS: AUTOMATED NEUTROPHIL # 3.9 TH/MM3 (1.8-7.7); BASOPHIL % 0.5 % (0.0-2.0); EOSINOPHIL # 0.2 TH/MM3 (0-0.4); EOSINOPHIL % 2.9 % (0.0-4.0); HEMATOCRIT 31.4 % (39.0-51.0); HEMOGLOBIN 9.4 GM/DL (13.0-17.0); LYMPH % 16.8 % (9.0-44.0); LYMPHOCYTE # 0.9 TH/MM3 (1.0-4.8); MEAN CELL VOLUME 71.7 FL (80.0-100.0); MEAN CORPUSCULAR HEMOGLOBIN 21.4 PG (27.0-34.0); MEAN PLATELET VOLUME 8.1 FL (7.0-11.0); MONO % 8.4 % (0.0-8.0); MONOCYTE # 0.5 TH/MM3 (0-0.9); NEUT % 71.4 % (16.0-70.0); PLATELET COUNT 266 TH/MM3 (150-450); RED BLOOD COUNT 4.38 MIL/MM3 (4.50-5.90); RED CELL DISTRIBUTION WIDTH 28.4 % (11.6-17.2); WHITE BLOOD COUNT 5.5 TH/MM3 (4.0-11.0)
[2017-07-05 07:24] LABS: MEAN CORPUSCULAR HGB CONC 29.8 % (32.0-36.0)
[2017-07-05 07:59] LABS: BICARBONATE 41.5 MEQ/L (21.0-32.0); CALCIUM 9.1 MG/DL (8.5-10.1); CREATININE 0.66 MG/DL (0.60-1.30)
[2017-07-05] MEDS: MEDIUM DOSE INSULIN NOVOLOG SUPPLEMENTAL SCALE SQ SCH ×4 (08:00→21:47)
[2017-07-05] MEDS: hydrALAZINE HCL 25 MG TAB PO SCH ×3 (08:39→17:44)
[2017-07-05] MEDS: PANTOPRAZOLE SOD 40 MG DELAYED RELEASE TAB PO SCH (08:40)
[2017-07-05] MEDS: ASPIRIN EC 81 MG TABEC PO SCH (08:40)
[2017-07-05] MEDS: SPIRONOLACTONE 25 MG TAB PO SCH ×2 (08:40→17:44)
[2017-07-05] MEDS: AMIODARONE 200 MG TAB PO SCH ×2 (08:40→21:46)
[2017-07-05] MEDS: FUROSEMIDE 40 MG TAB PO SCH (08:40)
[2017-07-05] MEDS: DOCUSATE SODIUM 50 MG/SENNA 8.6 MG TAB PO SCH ×2 (08:40→21:46)
[2017-07-05] MEDS: buPROPion HCL 100 MG TAB PO SCH (08:40)
[2017-07-05] MEDS: PREGABALIN 25 MG CAP PO SCH (08:40)
[2017-07-05] MEDS: ISOSORBIDE MONONITRATE 30 MG CR TAB (IMDUR) PO SCH (08:40)
[2017-07-05] MEDS: INSULIN DETEMIR 100 UNITS/ML VIAL SQ SCH ×2 (08:41→21:47)
[2017-07-05] MEDS: SODIUM CHLORIDE 0.9% FLUSH 10 ML FLUSH IV FLUSH SCH ×2 (08:41→21:45)
[2017-07-05] MEDS: APIXABAN 5 MG TABLET PO SCH ×2 (08:41→21:46)
[2017-07-05 09:43] LABS: STOMATOCYTES 1+ (NORMAL)
[2017-07-05 09:44] LABS: OVALOCYTES 1+ (NORMAL)
[2017-07-05] MEDS ORDERED: SOD PHOSPHATE/SOD BIPHOSPHATE (ADULT) ENEMA 133ML RECTAL PRN (16:15)
[2017-07-05] MEDS ORDERED: MAGNESIUM CITRATE SOLN 300 ML BTL PO PRN (16:15)
[2017-07-05] MEDS: FUROSEMIDE 40 MG/4 ML VIAL IV PUSH SCH (17:44)
[2017-07-05] MEDS: AZITHROMYCIN INJ 500 MG in SODIUM CHLOR 0.9% 250 ML INJ 250 ML IV SCH (17:45)
[2017-07-05] MEDS: cefTRIAXone INJ 1,000 MG in SODIUM CHLORIDE 0.9% INJ 100 ML IV SCH (17:46)
[2017-07-06] VITALS: BP 153/71; PULSE 91; RESP 18; TEMP 97.9; O2SAT 95
[2017-07-06] MEDS: ACETAMINOPHEN/HYDROcodone 325 MG/10 MG TAB PO PRN ×4 (03:02→14:53)
[2017-07-06 04:00] VITALS: BP 134/63; PULSE 83; PULSE 87; RESP 18; TEMP 97.9; O2SAT 96
[2017-07-06] MEDS: SODIUM CHLORIDE 0.9% FLUSH 10 ML FLUSH IV FLUSH SCH (07:33)
[2017-07-06] MEDS: PANTOPRAZOLE SOD 40 MG DELAYED RELEASE TAB PO SCH (07:51)
[2017-07-06] MEDS: ISOSORBIDE MONONITRATE 30 MG CR TAB (IMDUR) PO SCH (07:51)
[2017-07-06] MEDS: PREGABALIN 25 MG CAP PO SCH (07:52)
[2017-07-06] MEDS: ASPIRIN EC 81 MG TABEC PO SCH (07:52)
[2017-07-06] MEDS: buPROPion HCL 100 MG TAB PO SCH (07:52)
[2017-07-06] MEDS: AMIODARONE 200 MG TAB PO SCH (07:52)
[2017-07-06] MEDS: DOCUSATE SODIUM 50 MG/SENNA 8.6 MG TAB PO SCH (07:52)
[2017-07-06] MEDS: hydrALAZINE HCL 25 MG TAB PO SCH ×2 (07:52→12:29)
[2017-07-06] MEDS: FUROSEMIDE 40 MG/4 ML VIAL IV PUSH SCH (07:53)
[2017-07-06] MEDS: MEDIUM DOSE INSULIN NOVOLOG SUPPLEMENTAL SCALE SQ SCH ×2 (07:53→12:29)
[2017-07-06] MEDS: SPIRONOLACTONE 25 MG TAB PO SCH (07:53)
[2017-07-06] MEDS: APIXABAN 5 MG TABLET PO SCH (07:53)
[2017-07-06] MEDS: INSULIN DETEMIR 100 UNITS/ML VIAL SQ SCH (07:54)
[2017-07-06 08:00] VITALS: BP 112/65; PULSE 84; RESP 16; TEMP 98.6; O2SAT 96
[2017-07-06] MEDS: RESP: ALBUTEROL 2.5 MG/IPRATROPIUM 0.5 MG NEB (PRN) NEB (08:19)
[2017-07-06 09:00] VITALS: O2SAT 96
[2017-07-06 09:11] LABS: AUTOMATED NEUTROPHIL # 4.8 TH/MM3 (1.8-7.7); BASOPHIL % 0.6 % (0.0-2.0); EOSINOPHIL # 0.3 TH/MM3 (0-0.4); EOSINOPHIL % 4.4 % (0.0-4.0); HEMATOCRIT 32.1 % (39.0-51.0); HEMOGLOBIN 9.7 GM/DL (13.0-17.0); LYMPH % 16.9 % (9.0-44.0); LYMPHOCYTE # 1.2 TH/MM3 (1.0-4.8); MEAN CELL VOLUME 71.4 FL (80.0-100.0); MEAN CORPUSCULAR HEMOGLOBIN 21.6 PG (27.0-34.0); MEAN CORPUSCULAR HGB CONC 30.3 % (32.0-36.0); MEAN PLATELET VOLUME 8.2 FL (7.0-11.0); MONO % 9.1 % (0.0-8.0); MONOCYTE # 0.6 TH/MM3 (0-0.9); PLATELET COUNT 351 TH/MM3 (150-450); RED CELL DISTRIBUTION WIDTH 27.9 % (11.6-17.2); WHITE BLOOD COUNT 6.9 TH/MM3 (4.0-11.0)
[2017-07-06 09:41] LABS: BICARBONATE 38.8 MEQ/L (21.0-32.0); CALCIUM 9.4 MG/DL (8.5-10.1); CREATININE 0.75 MG/DL (0.60-1.30)
--- NOTE | 2017-07-06 09:55 | HHI.FPPN ---
Subjective Remarks this note is for 07/05/17 c/o abdom pain c/o leg redness and swelling c/o general pain c/o weakness Objective Vitals Vital Signs Date Time Temp Pulse Resp B/P (MAP) Pulse Ox O2 Delivery O2 Flow Rate FiO2 07/06/17 09:00 96 Nasal Cannula 3.00 07/06/17 08:00 98.6 84 16 112/65 (81) 96 07/06/17 04:00 97.9 87 18 134/63 (86) 96 07/06/17 04:00 83 07/06/17 04:00 Nasal Cannula 3.00 07/06/17 00:00 97.9 91 18 153/71 (98) 95 07/06/17 00:00 Nasal Cannula 3.00 07/06/17 00:00 91 07/05/17 21:05 96 Nasal Cannula 3.00 07/05/17 20:00 92 07/05/17 20:00 Nasal Cannula 3.00 07/05/17 20:00 97.9 85 19 124/60 (81) 96 07/05/17 17:42 07/05/17 16:01 97.9 85 22 122/59 (80) 96 07/05/17 14:08 07/05/17 11:20 97.5 83 20 109/56 (73) 96 I/O 07/05/17 07/05/17 07/05/17 07/06/17 07/06/17 07/06/17 07:00 15:00 23:00 07:00 15:00 23:00 Intake Total 1300 ml 520 ml 640 ml Output Total 1400 ml Balance 1300 ml 520 ml -760 ml Intake Oral 1300 ml 520 ml 640 ml Output Urine Total 1400 ml # Voids 4 6 # Bowel Movements 0 2 0 Result Diagram: 07/06/1781607/06/17 0817 Objective Remarks GENERAL: SKIN: Warm and dry. stasis erythema b legs to mid tibias HEAD: Atraumatic. Normocephalic. EYES: Pupils equal and round. No scleral icterus. No injection or drainage. ENT: No nasal bleeding or discharge. Mucous membranes pink and moist. NECK: Trachea midline. No JVD. CARDIOVASCULAR: Regular rate and rhythm. RESPIRATORY: No accessory muscle use. Clear to auscultation. Breath sounds equal bilaterally. GASTROINTESTINAL: Abdomen soft, non-tender, nondistended. Hepatic and splenic margins not palpable. MUSCULOSKELETAL: Extremities with 3 plus edema bilat NEUROLOGICAL: Awake and alert. No obvious cranial nerve deficits. Motor grossly within normal limits. 4 out of 5 muscle strength in the arms and legs. Normal speech. PSYCHIATRIC: Appropriate mood and affect; insight and judgment normal. A/P Assessment and Plan IV ABX IV STEROIDS CHANGED LASIX BACK TO IV BID AND INCREASED SPIRONOLACTONE. MAY NEED TO ADD METOLAZONE AGAIN. DUONEBS QID AND PRN INSULIN SSI AND LONG ACTING AM LABS PULMONARY CONSULT NEPHROLOGY CONSULT PALLIATIVE CONSULT ELIQUIS FOR DVT PROPHYLAXIS AND AF OMEPRAZOLE FOR GI PROPHYLAXIS SEE ORDERS FOR MED AND LAB CHANGES. CONSULT CM: INFORMED PT THAT HE WILL NEED TO FIND A NEW PCP DUE TO NONCOMPLIANCE AND BEING DISRUPTIVE IN MY OFFICE.. HE IS OK WITH THAT. 30 min spent with patient half of which was counseling and coordination of care. Discharge Planning HOME [facility]IDIO WITH [facility], PT NEEDS TO BE BACK ON HOSPICE AGAIN YET REFUSES. Physician Attestation pt has been obs, pt needs further inpt stay as outlined above. likely dc tomorrow or pt would bounce back to ER as he has had numerous readmits. 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 (6) Morbid obesity (7) Recurrent respiratory failure (8) Marijuana use on a regular basis (9) Neuropathy (10) Hyperlipidemia (11) Remote history of seizures (12) Pain (13) History of alcohol abuse, reportedly sober for 9 months (14) Chronic anemia (15) Hypertension (16) Diabetes, currently on insulin (17) GERD (18) Chronic pain, neck and back pain (19) DVT prophylaxis ICD Codes: Z79.01 - DVT prophylaxis Status: Acute (20) Atrial flutter with rapid ventricular response ICD Codes: I48.92 - Unspecified atrial flutter (21) Tobacco abuse ICD Codes: Z72.0 - Tobacco abuse Status: Chronic (22) Gastritis ICD Codes: K29.70 - Gastritis, unspecified, without bleeding (23) Respiratory distress ICD Codes: R06.00 - Dyspnea, unspecified Status: Acute (24) Anasarca ICD Codes: R60.1 - Generalized edema Status: Acute (25) Pickwickian syndrome ICD Codes: E66.2 - Morbid (severe) obesity with alveolar hypoventilation (26) Esophagitis ICD Codes: K20.9 - Esophagitis, unspecified Problem Qualifiers (1) Fluid overload: Qualified Codes: E87.79 - Other fluid overload Jozef Gilliland MD Jul 06, 2017 09:55
--- NOTE | 2017-07-06 10:00 | HHI.DS ---
Discharge Summary Admission Date Jul 05, 2017 at 14:02 Discharge Date: Jul 06, 2017 Admitting Diagnosis COPD exacerbatin, CHF, hypoxia (1) Congestive heart failure Status: Acute (2) Bilateral lower leg cellulitis ICD Codes: L03.116 - Cellulitis of left lower limb; L03.115 - Cellulitis of right lower limb Status: Acute (3) Fluid overload ICD Codes: E87.70 - Fluid overload, unspecified Status: Acute (4) Pain (5) Pickwickian syndrome ICD Codes: E66.2 - Morbid (severe) obesity with alveolar hypoventilation (6) Esophagitis ICD Codes: K20.9 - Esophagitis, unspecified (7) Chronic edema/anasarca (8) End-stage COPD, 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 (9) Morbid obesity (10) Recurrent respiratory failure (11) Neuropathy (12) Hyperlipidemia (13) Remote history of seizures (14) Tobacco abuse ICD Codes: Z72.0 - Tobacco abuse Status: Chronic (15) Atrial flutter with rapid ventricular response ICD Codes: I48.92 - Unspecified atrial flutter Brief History 57 YEAR OLD CM, READMIT WITH COPD AND CHF EXACERBATION. PT RECENTLY AT [facility] AND WAS ADMITTED WITH RESPIR FAILURE. FOUND WITH AF RVR AND HAD SUCCESSFUL ABLATION BY DR RUVALCABA. HE WENT HOME. CAME TO MY OFFICE LAST WEEK AND WAS DOING VERY POORLY DUE TO ANASARCA, COPD, AND CHF. WE DISCUSSED PALLIATION. HE WENT HOME THAT DAY YET RETURNED TO [facility] THIS TIME. HE WAS ADMITTED AND WAS DEMANDING PAIN MEDS AND SUBSEQUENTLY SIGNED OUT AMA. PT NOR READMITTED WITH AGAIN FLUID OVERLOAD, ANASARCA, CHF AND COPD. DISCUSSED WITH NURSING. CBC/BMP: 07/06/17 0817 07/06/17 0817 Significant Findings Laboratory Tests Test 07/03/17 13:41 07/04/17 05:45 07/05/17 06:15 07/06/17 08:17 Red Blood Count 4.41 MIL/MM3 (4.50-5.90) 4.38 MIL/MM3 (4.50-5.90) Hemoglobin 9.4 GM/DL (13.0-17.0) 9.4 GM/DL (13.0-17.0) 9.7 GM/DL (13.0-17.0) Hematocrit 31.7 % (39.0-51.0) 31.4 % (39.0-51.0) 32.1 % (39.0-51.0) Mean Corpuscular Volume 71.9 FL (80.0-100.0) 71.7 FL (80.0-100.0) 71.4 FL (80.0-100.0) Mean Corpuscular Hemoglobin 21.3 PG (27.0-34.0) 21.4 PG (27.0-34.0) 21.6 PG (27.0-34.0) Mean Corpuscular Hemoglobin Concent 29.6 % (32.0-36.0) 29.8 % (32.0-36.0) 30.3 % (32.0-36.0) Red Cell Distribution Width 27.6 % (11.6-17.2) 28.4 % (11.6-17.2) 27.9 % (11.6-17.2) Neutrophils (%) (Auto) 77.5 % (16.0-70.0) 71.4 % (16.0-70.0) Tear Drop Cells 1+ (NORMAL) Ovalocytes 1+ (NORMAL) 1+ (NORMAL) Blood Urea Nitrogen 27 MG/DL (7-18) 19 MG/DL (7-18) Sodium Level 134 MEQ/L (136-145) 133 MEQ/L (136-145) 130 MEQ/L (136-145) Chloride Level 87 MEQ/L (98-107) 86 MEQ/L (98-107) 84 MEQ/L (98-107) Carbon Dioxide Level 39.3 MEQ/L (21.0-32.0) 41.5 MEQ/L (21.0-32.0) 38.8 MEQ/L (21.0-32.0) Monocytes (%) (Auto) 8.4 % (0.0-8.0) 9.1 % (0.0-8.0) Lymphocytes # (Auto) 0.9 TH/MM3 (1.0-4.8) Stomatocytes 1+ (NORMAL) Random Glucose 154 MG/DL (74-106) 182 MG/DL (74-106) Potassium Level 3.3 MEQ/L (3.5-5.1) Eosinophils (%) (Auto) 4.4 % (0.0-4.0) PE at Discharge GENERAL: SKIN: Warm and dry. HEAD: Atraumatic. Normocephalic. EYES: Pupils equal and round. No scleral icterus. No injection or drainage. ENT: No nasal bleeding or discharge. Mucous membranes pink and moist. NECK: Trachea midline. No JVD. CARDIOVASCULAR: Regular rate and rhythm. RESPIRATORY: No accessory muscle use. Clear to auscultation. Breath sounds equal bilaterally. GASTROINTESTINAL: Abdomen soft, non-tender, nondistended. Hepatic and splenic margins not palpable. MUSCULOSKELETAL: Extremities without clubbing, cyanosis, or edema. No obvious deformities. NEUROLOGICAL: Awake and alert. No obvious cranial nerve deficits. Motor grossly within normal limits. Five out of 5 muscle strength in the arms and legs. Normal speech. PSYCHIATRIC: Appropriate mood and affect; insight and judgment normal. Hospital Course 57 YEAR OLD CM, READMIT WITH COPD AND CHF EXACERBATION. PT RECENTLY AT [facility] AND WAS ADMITTED WITH RESPIR FAILURE. FOUND WITH AF RVR AND HAD SUCCESSFUL ABLATION BY DR RUVALCABA. HE WENT HOME. CAME TO MY OFFICE LAST WEEK AND WAS DOING VERY POORLY DUE TO ANASARCA, COPD, AND CHF. WE DISCUSSED PALLIATION. HE WENT HOME THAT DAY YET RETURNED TO [facility] THIS TIME. HE WAS ADMITTED AND WAS DEMANDING PAIN MEDS AND SUBSEQUENTLY SIGNED OUT AMA. PT NOR READMITTED WITH AGAIN FLUID OVERLOAD, ANASARCA, CHF AND COPD. DISCUSSED WITH NURSING. PT GIVEN- IV ABX IV STEROIDS CHANGED LASIX BACK TO IV BID AND INCREASED SPIRONOLACTONE. MAY NEED TO ADD METOLAZONE AGAIN. DUONEBS QID AND PRN INSULIN SSI AND LONG ACTING AM LABS PULMONARY CONSULT NEPHROLOGY CONSULT PALLIATIVE CONSULT ELIQUIS FOR DVT PROPHYLAXIS AND AF OMEPRAZOLE FOR GI PROPHYLAXIS SEE ORDERS FOR MED AND LAB CHANGES. CONSULT CM: INFORMED PT THAT HE WILL NEED TO FIND A NEW PCP DUE TO NONCOMPLIANCE AND BEING DISRUPTIVE IN MY OFFICE. 40 min spent with patient half of which was counseling and coordination of care. Discharge Planning HOME WITH C OR HE STATES HE WILL SIGN OUT AMA, PT NEEDS TO BE BACK ON HOSPICE AGAIN YET REFUSES. HE IS TO SEE ME ON SUNDAY, HE AGREES, AND WILL TAKE OF HIM UNTIL HE FINDS A NEW PCP. Pt Condition on Discharge: Good Discharge Disposition: Disch w/ Home Health Serv Discharge Instructions DIET: Follow Instructions for: Diabetic Diet Activities you can perform: Regular-No Restrictions Follow up Referrals: PCP Follow-up - 2-[address] WOOD New Medications: Azithromycin (Azithromycin) 250 Mg Tab 250 MG PO DIRECTED for Infection, #6 TAB 0 Refills Take 2 tabs (500 mg) on day 1 then 1 tab daily x 4 days. Metolazone (Metolazone) 2.5 Mg Tab 2.5 MG PO DAILY for Chest Congestion/Cough, #6 TAB 0 Refills Mineral Oil/Carrageenan (Kondremul Microemulsion) 2.5 Ml/5 Ml Emulsion 30 ML PO DAILY PRN for CONSTIPATION for 14 Days, #28 BOTTLE Continued Medications: Albuterol 18 GM Inh (Ventolin Hfa 18 GM Inh) 90 Mcg/Act Aer 1 PUFF INH Q4H PRN for MILD/MODERATE SOB/WHEEZING, #1 INHALER 0 Refills Amiodarone (Amiodarone) 200 Mg Tab 400 MG PO Q12HR for af, #60 TAB 10 Refills Apixaban (Eliquis) 5 Mg Tab 5 MG PO BID for af, #60 TAB [address] (Aspirin DR) 81 Mg Tabdr 81 MG PO DAILY, TAB 0 Refills Bisacodyl Supp (Dulcolax Supp) 10 Mg Supp 10 MG RECTAL DAILY PRN for CONSTIPATION, #12 SUPP 0 Refills Bupropion HCl (Bupropion HCl) 100 Mg Tab 100 MG PO DAILY for Control Depression, TAB 0 Refills Fluticasone-Salmeterol Inh (Advair Diskus Inh) 250-50 Mcg/Blist Aer 2 PUFF INH BID, #1 INHALER 0 Refills Rinse mouth after use. Furosemide (Lasix) 40 Mg Tab 40 MG PO BID for chf, #60 TAB 10 Refills Hydralazine HCl (Hydralazine HCl) 25 Mg Tablet 25 MG PO TID for Blood Pressure Management, #90 TAB 0 Refills Hydrocodone-Acetaminophen (Hammond) 10-325 Mg Tab 1 TAB PO Q4H PRN for PAIN, #15 TAB 0 Refills Insulin Glargine Inj (Lantus Inj) 1,000 Unit/10 Ml Vial 80 UNITS SQ BID for Blood Sugar Management, VIAL 0 Refills Ipratropium-Albuterol Neb (Duoneb) 0.5-2.5 Mg/3 Ml Neb 1 NEBULE NEB Q4HR NEB PRN for SHORTNESS OF BREATH, #30 NEBULE 0 Refills Isosorbide Mononitrate ER (Isosorbide Mononitrate ER) 30 Mg Alexsander 30 MG PO DAILY for Prevent Chest Pain, #30 TAB 0 Refills Omeprazole (Omeprazole) 20 Mg Tab 40 MG PO DAILY for gerd, #30 TAB 0 Refills Oxygen (O2) (Oxygen (O2)) Device 2 LITER JACQUELINE.CANULA CONTINUOUS for Prevent Hypoxemia, #2 CYLINDER Oxygen Concentrator Portable Gaseous 2 L/min via Nasal Canula Continuous For 99 months Oxygen tank (Oxygen tank) 1 Ea Tank 2 LITER JACQUELINE.CANULA CONTINUOUS for HYPOXEMIA PREVENTION, #1 CYLINDER Oxygen Concentrator Portable Gaseous 2 L/min via Nasal Cannula Continuous For 99 months Pregabalin (Lyrica) 50 Mg Cap 50 MG PO DAILY, #30 CAP 0 Refills Sennosides-Docusate Sodium (Senna S) 8.6-50 Mg Tab 1-2 TAB PO Q12HR PRN for CONSTIPATION Spironolactone (Spironolactone) 25 Mg Tab 25 MG PO BIDPC for chf, #60 TAB 10 Refills Jozef Wood MD Jul 06, 2017 10:00
[2017-07-06] MEDS ORDERED: [UNRECOGNIZED DRUG - CODE] PO (10:04)
[2017-07-06] MEDS ORDERED: METO2.5T PO (10:04)
--- NOTE | 2017-07-06 10:05 | HHI.DCPOC ---
Discharge Care Plan Your Health Problems Are: Inflammation Swelling Leg Swelling Irregular Bowel Function Fluctuating Blood Sugars Cough Fluid/Lung Overload Shortness of Breath Goals to Promote Your Health * To prevent worsening of your condition and complications * To maintain your health at the optimal level Directions to Meet Your Goals Take your medications as prescribed Follow your dietary instruction Follow activity as directed Keep your appointments as scheduled Take your immunizations and boosters as scheduled If your symptoms worsen call your PCP, if no PCP go to Urgent Care Center or Emergency Room Smoking is Dangerous to Your Health. Avoid second hand smoke Call the 24-hour hour crisis hotline for domestic abuse at Jozef Gilliland MD Jul 06, 2017 10:05
[2017-07-06] MEDS ORDERED: AZIT250T3 PO (10:07)
--- NOTE | 2017-07-06 10:07 | HHI.FF ---
Face to Face Verification Diagnosis: (1) Congestive heart failure (2) Bilateral lower leg cellulitis (3) Fluid overload (4) Pain (5) Pickwickian syndrome (6) Esophagitis (7) Chronic edema/anasarca (8) End-stage COPD, 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 (9) Morbid obesity (10) Recurrent respiratory failure (11) Neuropathy (12) Hyperlipidemia (13) Hypertension (14) Diabetes, currently on insulin (15) Atrial flutter with rapid ventricular response (16) Tobacco abuse Physical Therapy Order: Evaluate and Treat, Improve ambulation, Strength and gait training Occupational Therapy Order: Evaluate and Treat, Improve ADL, Gross motor coordination, Fine motor coordination Home Health Nursing Order: Medical education Signs/symptoms of disease process Diabetic education CHF education Oxygen administration education Medication education-adverse effect Nursing assessment with vital signs Telehealth Home Health Aide Order: To Assist In: Bathing and personal care, cloth washer and meal prep Retail Sales Representative Order: To Evaluate: Living conditions/environment, Support services Order: To Provide: Long range planning, Community services I have seen patient Madan Guerra on 07/06/17. My clinical findings support the need for the requested home health care services because: Ltd mobility - disease progression Patient has SOB Deconditioned w/ increased weakness Med compliance is questionable Limited ability to care for self Need for psychosocial assistance Impaired cognition/judgement High risk of falls Infection w/ risk of complications I certify that my clinical findings support that this patient is homebound because: Impaired cognitive ability/safety Hx COPD- exertion dyspnea/weakness Unsteady gait/balance Unsafe to leave home unassisted Need for psychosocial assistance [id number] bed/chair Unable to use public transportation Poor cardiac reserve Jozef Gilliland MD Jul 06, 2017 10:07
[2017-07-06 11:12] LABS: OVALOCYTES 1+ (NORMAL); POLYCHROMASIA 2.7 % (0.0-1.9); TEARDROP RBCS 1+ (NORMAL)
[2017-07-06 12:00] VITALS: BP 128/66; PULSE 88; RESP 18; TEMP 98; O2SAT 95
== END 2017-07-06 16:01 | disposition home health service (06) | DRG 291 ==
LOC: NEPC 12:25 → INTOOBSV 15:41 → NEDA 15:41 → N04A 18:28 → OBSVTOIN 07-05 14:02
PROVIDERS: ADMIT Family Medicine; ATTEND Family Medicine
DX: I50.9 Heart failure, unspecified (principal); J96.90 Respiratory failure, unspecified, unspecified whether with hypoxia or hypercapnia; L03.115 Cellulitis of right lower limb; E87.1 Hypo-osmolality and hyponatremia; E66.2 Morbid (severe) obesity with alveolar hypoventilation; I48.92 Unspecified atrial flutter; L03.116 Cellulitis of left lower limb; J44.1 Chronic obstructive pulmonary disease with (acute) exacerbation; Z68.41 Body mass index [BMI] 40.0-44.9, adult; Z99.81 Dependence on supplemental oxygen; Z79.01 Long term (current) use of anticoagulants; I11.0 Hypertensive heart disease with heart failure; E11.9 Type 2 diabetes mellitus without complications; D64.9 Anemia, unspecified; R09.02 Hypoxemia; R06.82 Tachypnea, not elsewhere classified; G47.30 Sleep apnea, unspecified; K21.0 Gastro-esophageal reflux disease with esophagitis; E78.00 Pure hypercholesterolemia, unspecified; F41.9 Anxiety disorder, unspecified; K29.70 Gastritis, unspecified, without bleeding; M54.9 Dorsalgia, unspecified; M54.2 Cervicalgia; G89.4 Chronic pain syndrome; K59.00 Constipation, unspecified; E87.70 Fluid overload, unspecified; I25.10 Atherosclerotic heart disease of native coronary artery without angina pectoris; R00.0 Tachycardia, unspecified; G62.9 Polyneuropathy, unspecified; E78.5 Hyperlipidemia, unspecified; F17.210 Nicotine dependence, cigarettes, uncomplicated; F12.90 Cannabis use, unspecified, uncomplicated; Z91.19 Patient's noncompliance with other medical treatment and regimen; Z79.82 Long term (current) use of aspirin; Z79.891 Long term (current) use of opiate analgesic; Z79.4 Long term (current) use of insulin
CPT/HCPCS: 71046; 74176; 80048; 80053; 81001; 82550; 82948; 83690; 83880; 84484; 85007; 85025; 85027; 85610; 85730; 93005; 94640; 94664; 96374; 96375; G8987-GO; G8987-GP; G8988-GO; G8988-GP; J0456; J0696; J1815; J1940; J2930; J7050

== ENCOUNTER 2017-07-18 13:42 | Observation (INO) | payer OTHER ==
[~2017-07-18] VITALS: Ht 177.8 cm; Wt 117.0 kg
[~2017-07-18 13:42] MED LIST changes: +AZIT250T3 PO; +METO2.5T PO; +[UNRECOGNIZED DRUG - CODE] PO
[2017-07-18 13:51] VITALS: BP 147/70; PULSE 99; RESP 29; TEMP 97.8; O2SAT 77
--- NOTE | 2017-07-18 14:03 | PD ---
HPI Chief Complaint: Respiratory Symptoms Time Seen by Provider: 13:59 Travel History International Travel<30 days: No Contact w/Intl Traveler<30days: No Traveled to known affect area: No History of Present Illness HPI Patient comes in complaining of 2 days worsening of shortness of breath, saw his coin purse assembler today who told him to come directly to the ER for further evaluation and care because he was found to have a low oxygen sat on his pulse ox while at the office. Patient himself states that he is always short of breath, he is always like this. He normally in the low 90s on 2 L. Patient denies any new lead change expectorations, denies any fever at home, denies any nausea vomiting diarrhea or rash. No known drug allergy Past medical history significant for nearsightedness, seizures, syncope, CHF, COPD oxygen dependent on 2 L nasal cannula, hypertension, emphysema, GERD, anxiety, still smokes 1-1/2 pack per day PFSH Past Medical History Hx Anticoagulant Therapy: Yes (ASPIRIN) Arthritis: No Asthma: Yes Autoimmune Disease: No Blood Disorders: No Anxiety: Yes Depression: No Heart Rhythm Problems: No Cancer: No Cardiac Catheterization: Yes Cardiovascular Problems: Yes (CHF) High Cholesterol: Yes Chest Pain: Yes Congestive Heart Failure: Yes COPD: Yes Cerebrovascular Accident: No Coronary Artery Disease: No Diabetes: Yes Diminished Hearing: No Endocrine: Yes Gastrointestinal Disorders: Yes GERD: Yes Genitourinary: No Headaches: Yes Hiatal Hernia: No Hypertension: Yes Immune Disorder: No Implanted Vascular Access Dvce: No Musculoskeletal: Yes Neurologic: Yes Psychiatric: Yes Reproductive: No Respiratory: Yes (COPD ) Migraines: No Seizures: Yes Sleep Apnea: Yes Thyroid Disease: No Ulcer: No Past Surgical History Abdominal Surgery: No Cardiac Surgery: Yes (cardiac cath) Coronary Artery Bypass Graft: No Other Surgery: Yes (wart removed right leg) Social History Alcohol Use: No Tobacco Use: Yes (04/17 PPD) Substance Use: No Allergies-Medications (Allergen,Severity, Reaction): Coded Allergies: No Known Allergies (Verified Allergy, Unknown, 07/18/17) Reported Meds & Prescriptions Reported Meds & Active Scripts Active Kondremul Microemulsion (Mineral Oil/Carrageenan) 2.5 Ml/5 Ml Emulsion 30 Ml PO DAILY PRN 14 Days Lasix (Furosemide) 40 Mg Tab 40 Mg PO BID Spironolactone 25 Mg Tab 25 Mg PO BIDPC Eliquis (Apixaban) 5 Mg Tab 5 Mg PO BID Oxygen (O2) Device 2 Liter JACQUELINE.CANULA CONTINUOUS Oxygen Concentrator Portable Gaseous 2 L/min via Nasal Canula Continuous For 99 months Reported Tramadol (Tramadol HCl) 50 Mg Tab 50 Mg PO Q4H PRN Bupropion HCl ER 24 HR (Bupropion HCl) 150 Mg Tab 150 Mg PO DAILY Ventolin Hfa 18 GM Inh (Albuterol Sulfate) 90 Mcg/Act Aer 1 Puff INH Q4H PRN Lantus Inj (Insulin Glargine) 1,000 Unit/10 Ml Vial 80 Units SQ BID Advair Diskus Inh (Fluticasone-Salmeterol Inh) 250-50 Mcg/Blist Aer 2 Puff INH BID Rinse mouth after use. Aspirin DR (Aspirin) 81 Mg Tabdr 81 Mg PO DAILY Isosorbide Mononitrate ER (Isosorbide Mononitrate) 30 Mg Alexsander 30 Mg PO DAILY Duoneb (Ipratropium-Albuterol Neb) 0.5-2.5 Mg/3 Ml Neb 1 Nebule NEB Q4HR NEB PRN Review of Systems General / Constitutional: No: Fever Eyes: No: Visual changes HENT: No: Headaches Cardiovascular: No: Chest Pain or Discomfort Respiratory: Positive: Shortness of Breath Gastrointestinal: No: Abdominal Pain Genitourinary: No: Dysuria Musculoskeletal: No: Pain Skin: No Rash Neurologic: No: Weakness Psychiatric: No: Depression Endocrine: No: Polydipsia Hematologic/Lymphatic: No: Easy Bruising Physical Exam Narrative GENERAL: SKIN: Warm and dry. HEAD: Atraumatic. Normocephalic. EYES: Pupils equal and round. No scleral icterus. No injection or drainage. ENT: No nasal bleeding or discharge. Mucous membranes pink and moist. NECK: Trachea midline. No JVD. CARDIOVASCULAR: Regular rate and rhythm. RESPIRATORY: Positive accessory muscle use. GASTROINTESTINAL: Abdomen soft, non-tender, nondistended. MUSCULOSKELETAL: Extremities without clubbing, cyanosis, or edema. No obvious deformities. NEUROLOGICAL: Awake and alert. No obvious cranial nerve deficits. Motor grossly within normal limits. Five out of 5 muscle strength in the arms and legs. Normal speech. PSYCHIATRIC: Appropriate mood and affect; insight and judgment normal. Data Data Last Documented VS Orders Orders Complete Blood Count With Diff (07/18/17 14:03) Comprehensive Metabolic Panel (07/18/17 14:03) B-Type Natriuretic Peptide (07/18/17 14:03) Act Partial Throm Time (Ptt) (07/18/17 14:03) Prothrombin Time / Inr (Pt) (07/18/17 14:03) Ckmb (Isoenzyme) Profile (07/18/17 14:03) Troponin I (07/18/17 14:03) Iv Access Insert/Monitor (07/18/17 14:03) Electrocardiogram (07/18/17 14:03) Ecg Monitoring (07/18/17 14:03) Oximetry (07/18/17 14:03) Oxygen Administration (07/18/17 14:03) Chest, Single Ap (07/18/17 14:03) Sodium Chloride 0.9% Flush (Ns Flush) (07/18/17 14:15) Methylprednisolone So Succ Inj (Solumedr (07/18/17 14:15) Furosemide Inj (Lasix Inj) (07/18/17 14:15) Albuterol Neb (Albuterol Neb) (07/18/17 14:15) Arterial Blood Gas (Abg) (07/18/17 14:03) Morphine Inj (Morphine Inj) (07/18/17 15:45) Arterial Blood Gas (Abg) (07/18/17 18:13) Admit Order (Ed Use Only) (07/18/17 19:48) Furosemide Inj (Lasix Inj) (07/18/17 21:00) Methylprednisolone So Succ Inj (Solumedr (07/19/17 00:00) Albuterol-Ipratropium Neb (Duoneb Neb) (07/18/17 22:00) Apixaban (Eliquis) (07/19/17 09:00) Aspirin Ec (Ecotrin Ec) (07/19/17 09:00) Isosorbide Mononitrate (Imdur) (07/19/17 09:00) Mineral Oil Liq (Kondremul Liq) (07/18/17 21:15) Spironolactone (Aldactone) (07/18/17 21:15) Place In Observation (07/18/17 ) Vital Signs (Adult) Q4H (07/18/17 21:07) Activity Oob With Assistance (07/18/17 21:07) Bedside Glucose ARIEL.CSUGAR (07/18/17 21:07) Advanced Manufacturing Vice President / Telemetry .CONTINUOUS (07/18/17 21:07) Diet Diabetic (07/19/17 Breakfast) Sodium Chloride 0.9% Flush (Ns Flush) (07/18/17 21:15) Sodium Chloride 0.9% Flush (Ns Flush) (07/19/17 09:00) Acetaminophen (Tylenol) (07/18/17 21:15) Ondansetron Inj (Zofran Inj) (07/18/17 21:15) Basic Metabolic Panel (Bmp) (07/19/17 06:00) Complete Blood Count With Diff (07/19/17 06:00) Resp Oxygen Jacqueline C Titrat 1-4 L (07/18/17 ) Pt Request For Service (07/18/17 21:07) Heparin Inj (Heparin Inj) (07/18/17 21:15) Naloxone Inj (Narcan Inj) (07/18/17 21:15) Docusate Sodium-Senna (Amira-Colace) (07/18/17 21:15) Magnesium Hydroxide Liq (Milk Of Magnesi (07/18/17 21:15) Sennosides (Senokot) (07/18/17 21:15) Bisacodyl Supp (Dulcolax Supp) (07/18/17 21:15) Lactulose Liq (Lactulose Liq) (07/18/17 21:15) Albuterol-Ipratropium Neb (Duoneb Neb) (07/18/17 22:15) Labs Laboratory Tests Test 07/18/17 14:15 07/18/17 15:00 07/18/17 19:16 White Blood Count 12.4 TH/MM3 Red Blood Count 4.32 MIL/MM3 Hemoglobin 8.7 GM/DL Hematocrit 29.7 % Mean Corpuscular Volume 68.8 FL Mean Corpuscular Hemoglobin 20.1 PG Mean Corpuscular Hemoglobin Concent 29.2 % Red Cell Distribution Width 24.6 % Platelet Count 325 TH/MM3 Mean Platelet Volume 8.3 FL Neutrophils (%) (Auto) 75.9 % Lymphocytes (%) (Auto) 14.8 % Monocytes (%) (Auto) 7.5 % Eosinophils (%) (Auto) 0.9 % Basophils (%) (Auto) 0.9 % Neutrophils # (Auto) 9.4 TH/MM3 Lymphocytes # (Auto) 1.8 TH/MM3 Monocytes # (Auto) 0.9 TH/MM3 Eosinophils # (Auto) 0.1 TH/MM3 Basophils # (Auto) 0.1 TH/MM3 CBC Comment DIFF FINAL Differential Comment Prothrombin Time 10.5 SEC Prothromb Time International Ratio 1.0 RATIO Activated Partial Thromboplast Time 28.5 SEC Blood Urea Nitrogen 12 MG/DL Creatinine 0.68 MG/DL Random Glucose 93 MG/DL Total Protein 6.8 GM/DL Albumin 3.3 GM/DL Calcium Level 8.6 MG/DL Alkaline Phosphatase 109 U/L Aspartate Amino Transf (AST/SGOT) 20 U/L Alanine Aminotransferase (ALT/SGPT) 16 U/L Total Bilirubin 0.4 MG/DL Sodium Level 130 MEQ/L Potassium Level 3.9 MEQ/L Chloride Level 89 MEQ/L Carbon Dioxide Level 37.1 MEQ/L Anion Gap 4 MEQ/L Estimat Glomerular Filtration Rate 121 ML/MIN Total Creatine Kinase 19 U/L Troponin I LESS THAN 0.02 NG/ML B-Type Natriuretic Peptide 249 PG/ML Blood Gas Puncture Site RT RADIAL RT RADIAL Blood Gas Patient Temperature 98.6 98.6 Blood Gas HCO3 37 mmol/L 37 mmol/L Blood Gas Base Excess 11.6 mmol/L 10.9 mmol/L Blood Gas Oxygen Saturation 83 % 89 % Arterial Blood pH 7.39 7.34 Arterial Blood Partial Pressure CO2 63 mmHg 70 mmHg Arterial Blood Partial Pressure O2 59 mmHG 77 mmHG Arterial Blood Oxygen Content 10.2 Vol % 11.2 Vol % Arterial Blood Carboxyhemoglobin 7.0 % 5.6 % Arterial Blood Methemoglobin 0.8 % 0.6 % Blood Gas Hemoglobin 8.6 G/DL 8.9 G/DL Oxygen Delivery Device NASAL CANNULA BiPAP Blood Gas Liter Flow 2 L/M Blood Gas Ventilator Setting IPAP 15/ EPAP 5 Blood Gas Inspired Oxygen 30 % [facility] Medical Decision Making Medical Screen Exam Complete: Yes Emergency Medical Condition: Yes Medical Record Reviewed: Yes Interpretation(s) EKG shows normal sinus rhythm, 91 bpm, P mitralE, first-degree AV block, although no ST elevation is noted, there is some ST depressions noted on the anterior lateral leads. Differential Diagnosis Non-STEMI versus STEMI versus pulmonary edema versus CHF versus pneumonia versus COPD exacerbation Narrative Course CBC shows no left shift normal platelet count anemia of 8.7/29.7 Coagulation profile is within normal limits ABG shows hypoxemia and retention with a PaO2 of 59 thank you PCO2 of 63 Chemistries beta natruretic peptide is 249 first set of cardiac enzymes negative electrolytes are within normal limits with the exception of sodium 130 Diagnosis Primary Impression: COPD exacerbation with hypercapnia Admitting Information Admitting Physician Requests: Admit Jon Huitron MD Jul 18, 2017 14:02
[2017-07-18 14:06] VITALS: BP 123/68; PULSE 92; RESP 32; O2SAT 96; O2SAT 97
[2017-07-18] MEDS ORDERED: FUROSEMIDE 100 MG/10 ML VIAL IVP ONE (14:15)
[2017-07-18] MEDS ORDERED: methylPREDNISolone SOD SUCC 125 MG/2 ML VIAL IV PUSH ONE (14:15)
[2017-07-18] MEDS ORDERED: SODIUM CHLORIDE 0.9% FLUSH 10 ML FLUSH IVF PRN (14:15)
[2017-07-18 14:26] LABS: AUTOMATED NEUTROPHIL # 9.4 TH/MM3 (1.8-7.7); BASOPHIL # 0.1 TH/MM3 (0-0.2); BASOPHIL % 0.9 % (0.0-2.0); EOSINOPHIL # 0.1 TH/MM3 (0-0.4); EOSINOPHIL % 0.9 % (0.0-4.0); HEMATOCRIT 29.7 % (39.0-51.0); HEMOGLOBIN 8.7 GM/DL (13.0-17.0); LYMPH % 14.8 % (9.0-44.0); LYMPHOCYTE # 1.8 TH/MM3 (1.0-4.8); MEAN CELL VOLUME 68.8 FL (80.0-100.0); MEAN CORPUSCULAR HEMOGLOBIN 20.1 PG (27.0-34.0); MEAN CORPUSCULAR HGB CONC 29.2 % (32.0-36.0); MEAN PLATELET VOLUME 8.3 FL (7.0-11.0); MONO % 7.5 % (0.0-8.0); MONOCYTE # 0.9 TH/MM3 (0-0.9); NEUT % 75.9 % (16.0-70.0); PLATELET COUNT 325 TH/MM3 (150-450); RED BLOOD COUNT 4.32 MIL/MM3 (4.50-5.90); RED CELL DISTRIBUTION WIDTH 24.6 % (11.6-17.2); WHITE BLOOD COUNT 12.4 TH/MM3 (4.0-11.0)
[2017-07-18 14:34] LABS: PROTHROMBIN TIME - PATIENT 10.5 SEC (9.8-11.6)
--- NOTE | 2017-07-18 14:34 | RADRPT ---
EXAM DATE/TIME: 07/18/2017 14:05 [facility] COMPARISON: CHEST SINGLE AP, June 17, 2017, 4:11. INDICATIONS : Short of breath. MEDICAL HISTORY : Chronic obstructive pulmonary disease. Hypertension Cardiovascular disease. Seizures.,diabetes SURGICAL HISTORY : None. ENCOUNTER: Initial ACUITY: 1 day PAIN SCORE: 0/10 LOCATION: Bilateral chest FINDINGS: A single view of the chest demonstrates the lungs to be symmetrically aerated with definite improved aeration in the right base. There is some relative increased density in the left hemithorax, especial ly inferiorly which could represent some regional atelectasis or posterior fusion. Heart size remains prominent but well compensated. CONCLUSION: 1. Improving aeration in the right base. 2. Slight increased density in the lower left hemithorax could represent some regional atelectasis or possibly a posterior layering effusion. 3. Compensated cardiomegaly Eber Weeks MD on July 18, 2017 at 14:29 Board Certified Radiologist. This report was verified electronically.
[2017-07-18 14:43] LABS: ALBUMIN 3.3 GM/DL (3.4-5.0); AST (GOT) 20 U/L (15-37); BICARBONATE 37.1 MEQ/L (21.0-32.0); BLOOD UREA NITROGEN 12 MG/DL (7-18); CALCIUM 8.6 MG/DL (8.5-10.1); CHLORIDE 89 MEQ/L (98-107); CREATININE 0.68 MG/DL (0.60-1.30); GLOMERULAR FILTRATION RATE 121 ML/MIN (>89); GLUCOSE,RANDOM 93 MG/DL (74-106); SODIUM (NA) 130 MEQ/L (136-145)
[2017-07-18 14:44] LABS: ALT (GPT) 16 U/L (12-78)
[2017-07-18 14:48] LABS: ALKALINE PHOSPHATASE 109 U/L (45-117); TOTAL BILIRUBIN ADULT 0.4 MG/DL (0.2-1.0); TOTAL PROTEIN 6.8 GM/DL (6.4-8.2); TROPONIN I LESS THAN 0.02 NG/ML (0.02-0.05)
[2017-07-18] MEDS ORDERED: BUPR150T3 PO (15:30)
[2017-07-18] MEDS ORDERED: TRAM50TA PO (15:30)
[2017-07-18] MEDS ORDERED: MORPHINE SULFATE 4 MG/ML INJ IV PUSH ONE (15:45)
[2017-07-18 16:11] VITALS: O2SAT 93
[2017-07-18] MEDS: RESP: ALBUTEROL 2.5 MG/3 ML NEB (SCH) INH ×2 (16:11→16:12)
[2017-07-18 19:00] VITALS: BP 142/74; PULSE 93; RESP 21; O2SAT 95
[2017-07-18] MEDS ORDERED: HEPARIN SODIUM - SQ 10,000 UNITS/ML VIAL SQ SCH (21:15)
[2017-07-18] MEDS ORDERED: ACETAMINOPHEN 325 MG TAB PO PRN (21:15)
[2017-07-18] MEDS ORDERED: SENNOSIDES 8.6 MG TAB PO PRN (21:15)
[2017-07-18] MEDS ORDERED: SPIRONOLACTONE 25 MG TAB PO SCH (21:15)
[2017-07-18] MEDS ORDERED: DOCUSATE SODIUM 50 MG/SENNA 8.6 MG TAB PO SCH (21:15)
[2017-07-18] MEDS ORDERED: MAGNESIUM HYDROXIDE SUSP 30 ML CUP PO PRN (21:15)
[2017-07-18] MEDS ORDERED: MINERAL OIL EMULSION 55% PO PRN (21:15)
[2017-07-18] MEDS ORDERED: BISACODYL 10 MG SUPP RECTAL PRN (21:15)
[2017-07-18] MEDS ORDERED: ONDANSETRON HCL 4 MG/2 ML VIAL IVP PRN (21:15)
[2017-07-18] MEDS ORDERED: SODIUM CHLORIDE 0.9% FLUSH 10 ML FLUSH IV FLUSH PRN (21:15)
[2017-07-18] MEDS ORDERED: NALOXONE HCL 0.4 MG/ML AMP IV PUSH PRN (21:15)
[2017-07-18] MEDS ORDERED: LACTULOSE SYRUP 20 GM/30 ML CUP PO PRN (21:15)
[2017-07-18] MEDS: RESP: ALBUTEROL 2.5 MG/IPRATROPIUM 0.5 MG NEB (SCH) NEB (21:22)
[2017-07-18] MEDS ORDERED: cloNIDine HCL 0.1 MG TAB PO PRN (21:30)
[2017-07-18] MEDS ORDERED: GLUCAGON 1 MG/ML VIAL OTHER PRN (21:30)
[2017-07-18] MEDS ORDERED: LORazepam 2 MG/ML VIAL IV PUSH PRN (21:30)
[2017-07-18] MEDS: FUROSEMIDE 40 MG/4 ML VIAL IV PUSH SCH (21:30)
[2017-07-18] MEDS ORDERED: RESP: ALBUTEROL 2.5 MG/IPRATROPIUM 0.5 MG NEB (PRN) NEB (22:15)
[2017-07-18] MEDS: MORPHINE SULFATE 8 MG/ML INJ IV PUSH PRN (22:48)
[2017-07-18] MEDS ORDERED: AZITHROMYCIN INJ 500 MG in SODIUM CHLOR 0.9% 250 ML INJ 250 ML IV SCH (23:00)
[2017-07-19] VITALS (16 sets, daily range): BP systolic 12–143; BP diastolic 63–79; PULSE 86–96; RESP 18–21; TEMP 97.4–98.6; O2SAT 93–98
[2017-07-19] MEDS: oxyCODONE/ACETAMINOPHEN 10 MG/325 MG TAB PO PRN ×3 (00:59→12:20)
[2017-07-19] MEDS: methylPREDNISolone SOD SUCC 125 MG/2 ML VIAL IV PUSH SCH ×3 (00:59→12:20)
[2017-07-19] MEDS: INSULIN ASPART SUPPLEMENTAL SCALE SQ SCH ×2 (01:07→12:00)
[2017-07-19] MEDS: RESP: ALBUTEROL 2.5 MG/IPRATROPIUM 0.5 MG NEB (SCH) NEB ×2 (02:42→09:32)
[2017-07-19] MEDS: MORPHINE SULFATE 8 MG/ML INJ IV PUSH PRN ×3 (05:54→14:54)
[2017-07-19 07:06] LABS: AUTOMATED NEUTROPHIL # 7.2 TH/MM3 (1.8-7.7); BASOPHIL % 0.1 % (0.0-2.0); HEMATOCRIT 31.5 % (39.0-51.0); HEMOGLOBIN 9.1 GM/DL (13.0-17.0); LYMPH % 4.5 % (9.0-44.0); LYMPHOCYTE # 0.3 TH/MM3 (1.0-4.8); MEAN CELL VOLUME 70.4 FL (80.0-100.0); MEAN CORPUSCULAR HEMOGLOBIN 20.4 PG (27.0-34.0); MEAN PLATELET VOLUME 8.4 FL (7.0-11.0); MONOCYTE # 0.1 TH/MM3 (0-0.9); NEUT % 94.4 % (16.0-70.0); PLATELET COUNT 300 TH/MM3 (150-450); RED BLOOD COUNT 4.47 MIL/MM3 (4.50-5.90); RED CELL DISTRIBUTION WIDTH 24.1 % (11.6-17.2); WHITE BLOOD COUNT 7.6 TH/MM3 (4.0-11.0)
[2017-07-19 07:20] LABS: MEAN CORPUSCULAR HGB CONC 28.9 % (32.0-36.0)
[2017-07-19 07:31] LABS: BICARBONATE 37.9 MEQ/L (21.0-32.0); CALCIUM 8.9 MG/DL (8.5-10.1); CREATININE 0.85 MG/DL (0.60-1.30)
[2017-07-19] MEDS: FUROSEMIDE 40 MG/4 ML VIAL IV PUSH SCH (08:01)
[2017-07-19] MEDS ORDERED: buPROPion HCL 150 MG EXTENDED RELEASE TAB PO SCH (09:00)
[2017-07-19] MEDS ORDERED: buPROPion HCL 150 MG SUSTAINED RELEASE TAB PO SCH (09:00)
[2017-07-19] MEDS ORDERED: ISOSORBIDE MONONITRATE 30 MG CR TAB (IMDUR) PO SCH (09:00)
[2017-07-19] MEDS ORDERED: INSULIN DETEMIR 100 UNITS/ML VIAL SQ SCH (09:00)
[2017-07-19] MEDS ORDERED: ASPIRIN EC 81 MG TABEC PO SCH (09:00)
[2017-07-19] MEDS ORDERED: APIXABAN 5 MG TABLET PO SCH (09:00)
[2017-07-19] MEDS ORDERED: SODIUM CHLORIDE 0.9% FLUSH 10 ML FLUSH IV FLUSH SCH (09:00)
[2017-07-19] MEDS ORDERED: INSULIN GLARGINE 1,000 UNITS/10 ML VIAL SQ SCH (09:00)
--- NOTE | 2017-07-19 09:07 | HHI.HP ---
History of Present Illness Primary Care Physician Jozef Gilliland MD Admission Diagnosis COPD WITH HYPERCARBIA, CHF EXAC Diagnoses: (1) Congestive heart failure (2) Bilateral lower leg cellulitis (3) Fluid overload (4) Esophagitis (5) Chronic edema/anasarca (6) Pickwickian syndrome (7) Pain (8) End-stage COPD, 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 (9) Morbid obesity (10) Recurrent respiratory failure (11) Neuropathy (12) Hypertension (13) Type 2 diabetes mellitus History of Present Illness 57 y CM READMIT W HYPERCARBIA AND RESP FAILURE. PT W NUMEROUS ADMISSIONS. AFTER LAST DISCHARGE PT WENT HOME, HAD HHC, YET CONTINUED TO SMOKE. HE PRESENT TO MY OFFICE THIS WEEK AND WAS DOING MUCH BETTER. GLUCOSE AT HOME WAS CONTROLLED, LESS EDEMA, AND LESS ERYTYHEMA ABOUT THE LEGS. HE STARTED TO SMOKE MORE AND STARTED DRINKING EXCESS FLUIDS AGAIN. HE DECLINED AFTER THAT AND BECAME FLUID OVERLOADED AND SOB. HE STATES HE COULD NOT BREATH, HAD LEG PAIN FROM THE EDEMA, THEN THE SWELLING PROGRESSED UP INTO HIS ABDOMEN. HE PRESENTED TO THE ER. I WAS CALLED BY ER MD FOR ADMIT. PT REFUSED BIPAP. PLACED ON O2. SOME IMPROVEMENT IN ABG. GIVEN DIURETICS AND STEROIDS. PT NOW ASKING TO LEAVE OR GO AMA. Sepsis Criteria SIRS Criteria (2 or more): Heart rate over 90, WBC > 60326, < 4000 or > 10% bands Sepsis Criteria (SIRS+source): Infect source susp/known Criteria Outcome: Meets sepsis criteria Review of Systems ROS Limitations: Clinical Condition, Uncooperative, Speech Impaired, Poor Historian Except as stated in HPI: all other systems reviewed are Neg Past Family Social History Allergies: Coded Allergies: No Known Allergies (Verified Allergy, Unknown, 07/18/17) Physical Exam Vital Signs Vital Signs Date Time Temp Pulse Resp B/P (MAP) Pulse Ox O2 Delivery O2 Flow Rate FiO2 07/19/17 04:00 98.3 94 21 12/63 (46) 98 07/19/17 00:00 98.6 91 21 124/73 (90) 97 07/18/17 21:31 07/18/17 19:00 93 21 142/74 (96) 95 BiPAP 07/18/17 18:36 17 07/18/17 16:11 93 30 07/18/17 14:06 97 Nasal Cannula 3.00 07/18/17 14:06 97 Nasal Cannula 3.00 07/18/17 14:06 92 32 123/68 (86) 96 Nasal Cannula 2.00 07/18/17 14:00 31 93 Nasal Cannula 3.00 07/18/17 13:51 97.8 99 29 147/70 (95) 77 Physical Exam GENERAL: This is an obese, CM in distress SKIN: No rashes, ecchymoses or lesions. Cool and dry. HEAD: Atraumatic. Normocephalic. No temporal or scalp tenderness. EYES: Pupils equal round and reactive. Extraocular motions intact. No scleral icterus. No injection or drainage. ENT: Nose without bleeding, purulent drainage or septal hematoma. Throat without erythema, tonsillar hypertrophy or exudate. Uvula midline. Airway patent. NECK: Trachea midline. No JVD or lymphadenopathy. Supple, nontender, no meningeal signs. CARDIOVASCULAR: Regular rate and rhythm without murmurs, gallops, or rubs. RESPIRATORY: Bilateral rales and ronchi, harsh congested cough, end expir wheezes, tachypneic GASTROINTESTINAL: Abdomen soft, non-tender, nondistended. No hepato-splenomegaly , or palpable masses. No guarding. MUSCULOSKELETAL: Extremities without clubbing, cyanosis, or edema. No joint tenderness, effusion. 3 plus edema noted. No calf tenderness. Negative Homans sign bilaterally. NEUROLOGICAL: Awake and alert. Cranial nerves II through XII intact. Motor and sensory grossly within normal limits. 3 out of 5 muscle strength in all muscle groups. Normal speech. Laboratory Laboratory Tests Test 07/18/17 14:15 07/18/17 15:00 07/18/17 19:16 07/19/17 05:05 White Blood Count 12.4 7.6 Red Blood Count 4.32 4.47 Hemoglobin 8.7 9.1 Hematocrit 29.7 31.5 Mean Corpuscular Volume 68.8 70.4 Mean Corpuscular Hemoglobin 20.1 20.4 Mean Corpuscular Hemoglobin Concent 29.2 28.9 Red Cell Distribution Width 24.6 24.1 Platelet Count 325 300 Mean Platelet Volume 8.3 8.4 Neutrophils (%) (Auto) 75.9 94.4 Lymphocytes (%) (Auto) 14.8 4.5 Monocytes (%) (Auto) 7.5 1.0 Eosinophils (%) (Auto) 0.9 0.0 Basophils (%) (Auto) 0.9 0.1 Neutrophils # (Auto) 9.4 7.2 Lymphocytes # (Auto) 1.8 0.3 Monocytes # (Auto) 0.9 0.1 Eosinophils # (Auto) 0.1 0.0 Basophils # (Auto) 0.1 0.0 CBC Comment DIFF FINAL DIFF FINAL Differential Comment Prothrombin Time 10.5 Prothromb Time International Ratio 1.0 Activated Partial Thromboplast Time 28.5 Blood Urea Nitrogen 12 Creatinine 0.68 Random Glucose 93 Total Protein 6.8 Albumin 3.3 Calcium Level 8.6 Alkaline Phosphatase 109 Aspartate Amino Transf (AST/SGOT) 20 Alanine Aminotransferase (ALT/SGPT) 16 Total Bilirubin 0.4 Sodium Level 130 Potassium Level 3.9 Chloride Level 89 Carbon Dioxide Level 37.1 Anion Gap 4 Estimat Glomerular Filtration Rate 121 Total Creatine Kinase 19 Troponin I LESS THAN 0.02 B-Type Natriuretic Peptide 249 Blood Gas Puncture Site RT RADIAL RT RADIAL Blood Gas Patient Temperature 98.6 98.6 Blood Gas HCO3 37 37 Blood Gas Base Excess 11.6 10.9 Blood Gas Oxygen Saturation 83 89 Arterial Blood pH 7.39 7.34 Arterial Blood Partial Pressure CO2 63 70 Arterial Blood Partial Pressure O2 59 77 Arterial Blood Oxygen Content 10.2 11.2 Arterial Blood Carboxyhemoglobin 7.0 5.6 Arterial Blood Methemoglobin 0.8 0.6 Blood Gas Hemoglobin 8.6 8.9 Oxygen Delivery Device NASAL CANNULA BiPAP Blood Gas Liter Flow 2 Blood Gas Ventilator Setting IPAP 15/ EPAP 5 Blood Gas Inspired Oxygen 30 Test 07/19/17 05:50 Blood Urea Nitrogen 18 Creatinine 0.85 Random Glucose 288 Calcium Level 8.9 Sodium Level 131 Potassium Level 4.2 Chloride Level 89 Carbon Dioxide Level 37.9 Anion Gap 4 Estimat Glomerular Filtration Rate 93 Result Diagram: 07/19/17 0505 07/19/17 0550 Imaging Last 72 hours Impressions Chest X-Ray 07/18/17 1403 Signed Impressions: Service Date/Time: Tuesday, July 18, 2017 14:05 - CONCLUSION: 1. Improving aeration in the right base. 2. Slight increased density in the lower left hemithorax could represent some regional atelectasis or possibly a posterior layering effusion. 3. Compensated cardiomegaly MD David Billingsley VTE Risk Assessment Capanna VTE Risk Assessment: Mod/High Risk (score >= 2) Caprini Risk Assessment Model Point Value = 1 Point Value = 2 Point Value = 3 Point Value = 5 Age 41-60 Minor surgery BMI > 25 kg/m2 Swollen legs Varicose veins or History of unexplained or recurrent spontaneous Oral contraceptives or hormone replacement Sepsis (< 1 month) Serious lung disease, including pneumonia (< 1 month) Abnormal pulmonary function Acute myocardial infarction Congestive heart failure (< 1 month) History of inflammatory bowel disease Medical patient at bed rest Age 61-74 Arthroscopic surgery Major open surgery (> 45 min) Laparoscopic surgery (> 45 min) Malignancy Confined to bed (> 72 hours) Immobilizing plaster cast Central venous access Age >= 75 History of VTE Family history of VTE Factor V Leiden Prothrombin [id number] Lupus anticoagulant Anticardiolipin antibodies Elevated serum homocysteine Heparin-induced thrombocytopenia Other congenital or acquired thrombophilia Stroke (< 1 month) Elective arthroplasty Hip, pelvis, or leg fracture Acute spinal cord injury (< 1 month) Prophylaxis Regimen Total Risk Factor Score Risk Level Prophylaxis Regimen 0-1 Low Early ambulation 2 Moderate Order ONE of the following: *Sequential Compression Device (SCD) *Heparin 5000 units SQ BID 3-4 Higher Order ONE of the following medications: *Heparin 5000 units SQ TID *Enoxaparin/Lovenox 40 mg SQ daily (WT < 150 kg, CrCl > 30 mL/min) *Enoxaparin/Lovenox 30 mg SQ daily (WT < 150 kg, CrCl > 10-29 mL/min) *Enoxaparin/Lovenox 30 mg SQ BID (WT < 150 kg, CrCl > 30 mL/min) AND/OR *Sequential Compression Device (SCD) 5 or more Highest Order ONE of the following medications: *Heparin 5000 units SQ TID (Preferred with Epidurals) *Enoxaparin/Lovenox 40 mg SQ daily (WT < 150 kg, CrCl > 30 mL/min) *Enoxaparin/Lovenox 30 mg SQ daily (WT < 150 kg, CrCl > 10-29 mL/min) *Enoxaparin/Lovenox 30 mg SQ BID (WT < 150 kg, CrCl > 30 mL/min) AND *Sequential Compression Device (SCD) Assessment and Plan Problem List: (1) Alcohol abuse ICD Codes: F10.10 - Alcohol abuse Status: Chronic (2) Chronic edema/anasarca (3) End-stage COPD, 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 (4) Morbid obesity (5) Recurrent respiratory failure (6) Neuropathy (7) Pain (8) Hypertension (9) Congestive heart failure Status: Acute (10) Bilateral lower leg cellulitis ICD Codes: L03.116 - Cellulitis of left lower limb; L03.115 - Cellulitis of right lower limb Status: Acute (11) Type 2 diabetes mellitus ICD Codes: E11.9 - Type 2 diabetes mellitus without complications Status: Acute (12) Fluid overload ICD Codes: E87.70 - Fluid overload, unspecified Status: Acute (13) Pickwickian syndrome ICD Codes: E66.2 - Morbid (severe) obesity with alveolar hypoventilation (14) Esophagitis ICD Codes: K20.9 - Esophagitis, unspecified (15) Atrial flutter with rapid ventricular response ICD Codes: I48.92 - Unspecified atrial flutter Assessment and Plan SEPSIS WORKUP IV STEROIDS DUONEBS QID REFUSING BIPAP IV LASIX BID SLIDING SCALE INSULIN AND LONG ACTING TELE DVT: ELIQUIS GI: PROTONIX AM LABS OBS ADMIT 50 MIN SPENT WITH PT HALF OF WHICH WAS COUNSELING AND COORDINATION OF CARE. Jozef Gilliland MD Jul 19, 2017 09:07
--- NOTE | 2017-07-19 13:59 | EKG ---
Date Performed: 07/18/2017 Time Performed: 14:07:58 PTAGE: 57 years EKG: Sinus rhythm MODERATE ST DEPRESSION ABNORMAL ECG Since the PREVIOUS TRACING , no significant change noted PREVIOUS TRACIN07/02/2017 13.28 DOCTOR: Crystal Bliss Interpretating Date/Time 07/19/2017 13:58:06
--- NOTE | 2017-07-19 15:03 | HHI.DCPOC ---
Discharge Care Plan Diagnosis: (1) Chronic edema/anasarca (2) End-stage COPD, 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 (3) Morbid obesity (4) Recurrent respiratory failure (5) Neuropathy (6) Pain (7) Hypertension (8) Congestive heart failure (9) Bilateral lower leg cellulitis (10) Atrial flutter with rapid ventricular response (11) Type 2 diabetes mellitus (12) Fluid overload (13) Pickwickian syndrome (14) Remote history of seizures Goals to Promote Your Health * To prevent worsening of your condition and complications * To maintain your health at the optimal level Directions to Meet Your Goals Take your medications as prescribed Follow your dietary instruction Follow activity as directed Keep your appointments as scheduled Take your immunizations and boosters as scheduled If your symptoms worsen call your PCP, if no PCP go to Urgent Care Center or Emergency Room Smoking is Dangerous to Your Health. Avoid second hand smoke Call the 24-hour hour crisis hotline for domestic abuse at Jozef Gilliland MD Jul 19, 2017 15:03
--- NOTE | 2017-07-19 15:05 | HHI.DS ---
Discharge Summary Admission Date Jul 18, 2017 at 21:15 Discharge Date: Jul 19, 2017 Admitting Diagnosis COPD WITH HYPERCARBIA, CHF EXAC (1) Remote history of seizures (2) Chronic edema/anasarca (3) End-stage COPD, 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 (4) Morbid obesity (5) Recurrent respiratory failure (6) Neuropathy (7) Pain (8) Hypertension (9) Congestive heart failure Status: Acute (10) Bilateral lower leg cellulitis ICD Codes: L03.116 - Cellulitis of left lower limb; L03.115 - Cellulitis of right lower limb Status: Acute (11) Atrial flutter with rapid ventricular response ICD Codes: I48.92 - Unspecified atrial flutter (12) Type 2 diabetes mellitus ICD Codes: E11.9 - Type 2 diabetes mellitus without complications Status: Acute (13) Fluid overload ICD Codes: E87.70 - Fluid overload, unspecified Status: Acute (14) Pickwickian syndrome ICD Codes: E66.2 - Morbid (severe) obesity with alveolar hypoventilation (15) Hyperlipidemia Brief History 57 y CM READMIT W HYPERCARBIA AND RESP FAILURE. PT W NUMEROUS ADMISSIONS. AFTER LAST DISCHARGE PT WENT HOME, HAD HHC, YET CONTINUED TO SMOKE. HE PRESENT TO MY OFFICE THIS WEEK AND WAS DOING MUCH BETTER. GLUCOSE AT HOME WAS CONTROLLED, LESS EDEMA, AND LESS ERYTYHEMA ABOUT THE LEGS. HE STARTED TO SMOKE MORE AND STARTED DRINKING EXCESS FLUIDS AGAIN. HE DECLINED AFTER THAT AND BECAME FLUID OVERLOADED AND SOB. HE STATES HE COULD NOT BREATH, HAD LEG PAIN FROM THE EDEMA, THEN THE SWELLING PROGRESSED UP INTO HIS ABDOMEN. HE PRESENTED TO THE ER. I WAS CALLED BY ER MD FOR ADMIT. PT REFUSED BIPAP. PLACED ON O2. SOME IMPROVEMENT IN ABG. GIVEN DIURETICS AND STEROIDS. PT NOW ASKING TO LEAVE OR GO AMA. CBC/BMP: 07/19/17 0505 07/19/17 0550 Significant Findings Laboratory Tests Test 07/18/17 14:15 07/18/17 15:00 07/18/17 19:16 07/19/17 05:05 White Blood Count 12.4 TH/MM3 (4.0-11.0) Red Blood Count 4.32 MIL/MM3 (4.50-5.90) 4.47 MIL/MM3 (4.50-5.90) Hemoglobin 8.7 GM/DL (13.0-17.0) 9.1 GM/DL (13.0-17.0) Hematocrit 29.7 % (39.0-51.0) 31.5 % (39.0-51.0) Mean Corpuscular Volume 68.8 FL (80.0-100.0) 70.4 FL (80.0-100.0) Mean Corpuscular Hemoglobin 20.1 PG (27.0-34.0) 20.4 PG (27.0-34.0) Mean Corpuscular Hemoglobin Concent 29.2 % (32.0-36.0) 28.9 % (32.0-36.0) Red Cell Distribution Width 24.6 % (11.6-17.2) 24.1 % (11.6-17.2) Neutrophils (%) (Auto) 75.9 % (16.0-70.0) 94.4 % (16.0-70.0) Neutrophils # (Auto) 9.4 TH/MM3 (1.8-7.7) Albumin 3.3 GM/DL (3.4-5.0) Sodium Level 130 MEQ/L (136-145) Chloride Level 89 MEQ/L (98-107) Carbon Dioxide Level 37.1 MEQ/L (21.0-32.0) Anion Gap 4 MEQ/L (5-15) Total Creatine Kinase 19 U/L (39-308) Troponin I LESS THAN 0.02 NG/ML B-Type Natriuretic Peptide 249 PG/ML (0-100) Blood Gas HCO3 37 mmol/L (22-26) 37 mmol/L (22-26) Blood Gas Base Excess 11.6 mmol/L (-2-2) 10.9 mmol/L (-2-2) Blood Gas Oxygen Saturation 83 % (90-100) 89 % (90-100) Arterial Blood Partial Pressure CO2 63 mmHg (38-42) 70 mmHg (38-42) Arterial Blood Partial Pressure O2 59 mmHG (61-120) Arterial Blood Oxygen Content 10.2 Vol % (12.0-20.0) 11.2 Vol % (12.0-20.0) Arterial Blood Carboxyhemoglobin 7.0 % (0-4) 5.6 % (0-4) Blood Gas Hemoglobin 8.6 G/DL (12.0-16.0) 8.9 G/DL (12.0-16.0) Arterial Blood pH 7.34 (7.380-7.420) Lymphocytes (%) (Auto) 4.5 % (9.0-44.0) Lymphocytes # (Auto) 0.3 TH/MM3 (1.0-4.8) Test 07/19/17 05:50 Random Glucose 288 MG/DL (74-106) Sodium Level 131 MEQ/L (136-145) Chloride Level 89 MEQ/L (98-107) Carbon Dioxide Level 37.9 MEQ/L (21.0-32.0) Anion Gap 4 MEQ/L (5-15) PE at Discharge GENERAL: SKIN: Warm and dry. HEAD: Atraumatic. Normocephalic. EYES: Pupils equal and round. No scleral icterus. No injection or drainage. ENT: No nasal bleeding or discharge. Mucous membranes pink and moist. NECK: Trachea midline. No JVD. CARDIOVASCULAR: Regular rate and rhythm. RESPIRATORY: No accessory muscle use. Clear to auscultation. Breath sounds equal bilaterally. GASTROINTESTINAL: Abdomen soft, non-tender, nondistended. Hepatic and splenic margins not palpable. MUSCULOSKELETAL: Extremities without clubbing, cyanosis, or edema. No obvious deformities. NEUROLOGICAL: Awake and alert. No obvious cranial nerve deficits. Motor grossly within normal limits. Five out of 5 muscle strength in the arms and legs. Normal speech. PSYCHIATRIC: Appropriate mood and affect; insight and judgment normal. Hospital Course 57 Y CM ADMIT WITH THE ABOVE. SEPSIS WORKUP BEGUN. GIVEN IV STEROIDS, IV ABX. REFUSING BIPAP. GIVEN IV DIURESIS. ON ELIQUIS FOR DVT PX, AND PROTONIX FOR GI PX. PT ASKING FOR DC OR HE IS GOING AMA. Pt Condition on Discharge: Good Discharge Disposition: Disch w/ Home Health Serv Discharge Instructions DIET: Follow Instructions for: Heart Healthy Diet, Diabetic Diet Activities you can perform: Regular-No Restrictions Continued Medications: Albuterol 18 GM Inh (Ventolin Hfa 18 GM Inh) 90 Mcg/Act Aer 1 PUFF INH Q4H PRN for MILD/MODERATE SOB/WHEEZING, #1 INHALER 0 Refills Apixaban (Eliquis) 5 Mg Tab 5 MG PO BID for af, #60 TAB [address] (Aspirin DR) 81 Mg Tabdr 81 MG PO DAILY, TAB 0 Refills Bupropion HCl ER 24 HR (Bupropion HCl ER 24 HR) 150 Mg Tab 150 MG PO DAILY for Control Depression, TAB 0 Refills Fluticasone-Salmeterol Inh (Advair Diskus Inh) 250-50 Mcg/Blist Aer 2 PUFF INH BID, #1 INHALER 0 Refills Rinse mouth after use. Furosemide (Lasix) 40 Mg Tab 40 MG PO BID for chf, #60 TAB 10 Refills Insulin Glargine Inj (Lantus Inj) 1,000 Unit/10 Ml Vial 80 UNITS SQ BID for Blood Sugar Management, VIAL 0 Refills Ipratropium-Albuterol Neb (Duoneb) 0.5-2.5 Mg/3 Ml Neb 1 NEBULE NEB Q4HR NEB PRN for SHORTNESS OF BREATH, #30 NEBULE 0 Refills Isosorbide Mononitrate ER (Isosorbide Mononitrate ER) 30 Mg Alexsander 30 MG PO DAILY for Prevent Chest Pain, #30 TAB 0 Refills Mineral Oil/Carrageenan (Kondremul Microemulsion) 2.5 Ml/5 Ml Emulsion 30 ML PO DAILY PRN for CONSTIPATION for 14 Days, #28 BOTTLE Oxygen (O2) (Oxygen (O2)) Device 2 LITER JACQUELINE.CANULA CONTINUOUS for Prevent Hypoxemia, #2 CYLINDER Oxygen Concentrator Portable Gaseous 2 L/min via Nasal Canula Continuous For 99 months Spironolactone (Spironolactone) 25 Mg Tab 25 MG PO BIDPC for chf, #60 TAB 10 Refills Tramadol (Tramadol) 50 Mg Tab 50 MG PO Q4H PRN for PAIN, TAB 0 Refills Jozef Gilliland MD Jul 19, 2017 15:05
--- NOTE | 2017-07-19 15:11 | HHI.FF ---
Face to Face Verification Diagnosis: (1) Hyperlipidemia (2) Remote history of seizures (3) Chronic edema/anasarca (4) End-stage COPD, 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 (5) Morbid obesity (6) Recurrent respiratory failure (7) Neuropathy (8) Pain (9) Hypertension (10) Congestive heart failure (11) Bilateral lower leg cellulitis (12) Atrial flutter with rapid ventricular response (13) Type 2 diabetes mellitus (14) Fluid overload (15) Pickwickian syndrome Physical Therapy Order: Evaluate and Treat, Improve ambulation, Strength and gait training Home Health Nursing Order: Medical education Diabetic education CHF education Oxygen administration education Medication education-adverse effect Nursing assessment with vital signs Telehealth Home Health Aide Order: To Assist In: Bathing and personal care, brick catcher and meal prep Retail Link Analyst Order: To Evaluate: Living conditions/environment, Support services Order: To Provide: Long range planning, Community services I have seen patient Madan Guerra on 07/19/17. My clinical findings support the need for the requested home health care services because: Ltd mobility - disease progression Patient has SOB Deconditioned w/ increased weakness Med compliance is questionable Limited ability to care for self Need for psychosocial assistance Impaired cognition/judgement High risk of falls I certify that my clinical findings support that this patient is homebound because: Impaired cognitive ability/safety Hx COPD- exertion dyspnea/weakness Unsteady gait/balance Unsafe to leave home unassisted Need for psychosocial assistance Unable to use public transportation Poor cardiac reserve Jozef Gilliland MD Jul 19, 2017 15:11
== END 2017-07-19 16:06 | disposition home or self-care (01) ==
LOC: NEPE 13:42 → UNDOADMIN 19:56 → NEDA 19:56 → INTOOBSV 21:15 → NEDA 21:15 → HCIS 21:45
PROVIDERS: ADMIT Family Medicine; ATTEND Family Medicine
DX: I11.0 Hypertensive heart disease with heart failure (principal); I50.9 Heart failure, unspecified; J96.92 Respiratory failure, unspecified with hypercapnia; R09.02 Hypoxemia; L03.115 Cellulitis of right lower limb; L03.116 Cellulitis of left lower limb; J44.1 Chronic obstructive pulmonary disease with (acute) exacerbation; I48.92 Unspecified atrial flutter; E11.9 Type 2 diabetes mellitus without complications; R94.31 Abnormal electrocardiogram [ECG] [EKG]; G47.30 Sleep apnea, unspecified; K21.0 Gastro-esophageal reflux disease with esophagitis; G62.9 Polyneuropathy, unspecified; F41.9 Anxiety disorder, unspecified; F10.10 Alcohol abuse, uncomplicated; E66.2 Morbid (severe) obesity with alveolar hypoventilation; Z99.81 Dependence on supplemental oxygen; E78.00 Pure hypercholesterolemia, unspecified; Z79.899 Other long term (current) drug therapy; Z79.82 Long term (current) use of aspirin; Z79.01 Long term (current) use of anticoagulants
CPT/HCPCS: 36600; 71045; 80048; 80053; 82550; 82805; 82948; 83880; 84484; 85025; 85610; 85730; 87040; 93005; 94002; 94640; 94664; 96372; 96374; 96375; 97162; 99285; G0378; G8987; G8988; J0456; J1644; J1815; J1940; J2270; J2930; J7050; J7613

== ENCOUNTER 2017-07-31 20:01 | Observation (INO) | payer OTHER ==
[~2017-07-31] VITALS: Ht 177.8 cm; Wt 115.0 kg
[~2017-07-31 20:01] MED LIST changes: -AMIO200T PO; -AZIT250T3 PO; -BUPR100T4 PO; +BUPR150T3 PO; -DULC10SU3 RECTAL; -HYDR-3366 PO; -HYDR-3799 PO; -LYRI50CA PO; -METO2.5T PO; -OMEP20TA93 PO; -OXYGENTANK NAS.CANULA; -SENN8.6T8 PO; +TRAM50TA PO
[2017-07-31 20:08] VITALS: BP 168/74; PULSE 85; RESP 24; TEMP 98.7; O2SAT 96
[2017-07-31 20:15] VITALS: O2SAT 98
[2017-07-31] MEDS ORDERED: cefTRIAXone INJ 2,000 MG in SODIUM CHLORIDE 0.9% INJ 100 ML IV ONE (20:15)
[2017-07-31] MEDS ORDERED: SODIUM CHLORIDE 0.9% FLUSH 10 ML FLUSH IVF PRN (20:15)
[2017-07-31] MEDS: RESP: ALBUTEROL 2.5 MG/IPRATROPIUM 0.5 MG NEB (SCH) INH (20:25)
--- NOTE | 2017-07-31 20:26 | PD ---
HPI Chief Complaint: Respiratory Distress Time Seen by Provider: 20:12 Travel History International Travel<30 days: No Contact w/Intl Traveler<30days: No Traveled to known affect area: No History of Present Illness HPI 57-year-old male presents to the emergency department from home by EMS transport for evaluation of shortness of breath. Patient reports progressively worsening shortness of breath over the past 4 days with lower extremity swelling and lower abdomen swelling. Patient has chronic lower extremity and lower abdomen erythema and edema but he reports the symptoms are worse. Patient was found to have bilateral wheezing and received 1 DuoNeb updraft and 1 albuterol updraft as well as 125 mg of Solu-Medrol prior to arrival to the emergency department. Patient's O2 saturations were 93% after updraft treatments. Patient's blood sugar 118 and patient was afebrile upon EMS evaluation. Patient has history of COPD CHF chronic edema anasarca morbid obesity recurrent respiratory failure with once monthly admission for exacerbation of COPD and/or CHF chronic neuropathy hypertension bilateral lower extremity cellulitis atrial flutter with episodes of RVR 06/18/17 he underwent EP study with successful ablation by Dr. North. Patient frequently presents with recurrent fluid overload. Patient also has history of dyslipidemia and diabetes. Patient continues to smoke cigarettes. Patient is unaware of any fever but has had chills and cough productive of brown/red colored sputum. [facility] Past Medical History Narrative Medical COPD anasarca CHF morbid obesity neuropathy remote seizure hypertension recurrent cellulitis atrial flutter status post ablation diabetes hyperlipidemia tobaccoism; nursing notes reviewed Hx Anticoagulant Therapy: Yes (ASPIRIN) Arthritis: No Asthma: Yes Autoimmune Disease: No Blood Disorders: No Anxiety: Yes Depression: No Heart Rhythm Problems: No Cancer: No Cardiac Catheterization: Yes Cardiovascular Problems: Yes (CHF) High Cholesterol: Yes Chest Pain: Yes Congestive Heart Failure: Yes COPD: Yes Cerebrovascular Accident: No Coronary Artery Disease: No Diabetes: Yes Patient Takes Glucophage: No Diminished Hearing: No Endocrine: Yes Gastrointestinal Disorders: Yes GERD: Yes Genitourinary: No Headaches: Yes Hiatal Hernia: No Hypertension: Yes Immune Disorder: No Implanted Vascular Access Dvce: No Musculoskeletal: Yes Neurologic: Yes Psychiatric: Yes Reproductive: No Respiratory: Yes (COPD ) Migraines: No Seizures: Yes Sleep Apnea: Yes Thyroid Disease: No Ulcer: No Past Surgical History Abdominal Surgery: No Cardiac Surgery: Yes (cardiac cath June 2017) Coronary Artery Bypass Graft: No Ear Surgery: No Endocrine Surgery: No Eye Surgery: No Genitourinary Surgery: No Gynecologic Surgery: No Thoracic Surgery: No Other Surgery: Yes (wart removed right leg) Social History Alcohol Use: No Tobacco Use: Yes (1 PPD) Substance Use: No Allergies-Medications (Allergen,Severity, Reaction): Coded Allergies: No Known Allergies (Verified Allergy, Unknown, 07/18/17) Reported Meds & Prescriptions Reported Meds & Active Scripts Active Kondremul Microemulsion (Mineral Oil/Carrageenan) 2.5 Ml/5 Ml Emulsion 30 Ml PO DAILY PRN 14 Days Lasix (Furosemide) 40 Mg Tab 40 Mg PO BID Spironolactone 25 Mg Tab 25 Mg PO BIDPC Eliquis (Apixaban) 5 Mg Tab 5 Mg PO BID Oxygen (O2) Device 2 Liter JACQUELINE.CANULA CONTINUOUS Oxygen Concentrator Portable Gaseous 2 L/min via Nasal Canula Continuous For 99 months Reported Tramadol (Tramadol HCl) 50 Mg Tab 50 Mg PO Q4H PRN Bupropion HCl ER 24 HR (Bupropion HCl) 150 Mg Tab 150 Mg PO DAILY Ventolin Hfa 18 GM Inh (Albuterol Sulfate) 90 Mcg/Act Aer 1 Puff INH Q4H PRN Lantus Inj (Insulin Glargine) 1,000 Unit/10 Ml Vial 80 Units SQ BID Advair Diskus Inh (Fluticasone-Salmeterol Inh) 250-50 Mcg/Blist Aer 2 Puff INH BID Rinse mouth after use. Aspirin DR (Aspirin) 81 Mg Tabdr 81 Mg PO DAILY Isosorbide Mononitrate ER (Isosorbide Mononitrate) 30 Mg Alexsander 30 Mg PO DAILY Duoneb (Ipratropium-Albuterol Neb) 0.5-2.5 Mg/3 Ml Neb 1 Nebule NEB Q4HR NEB PRN Review of Systems Except as stated in HPI: all other systems reviewed are Neg General / Constitutional: Positive: Chills, No: Fever HENT: No: Congestion Cardiovascular: Positive: Dyspnea on exertion, Edema, No: Chest Pain or Discomfort Respiratory: Positive: Cough, Shortness of Breath, Wheezing, Orthopnea Gastrointestinal: No: Nausea, Vomiting, Abdominal Pain Genitourinary: No: Dysuria Musculoskeletal: Positive: Myalgias, Arthralgias, Edema Skin: No Rash Neurologic: No: Weakness Psychiatric: Positive: Anxiety Hematologic/Lymphatic: No: Lymph Node Enlargement Physical Exam Narrative GENERAL: Well-developed well-nourished morbidly obese male in moderate respiratory distress with minimal exertion O2 saturation on 2 L/min nasal cannula 96% sitting upright SKIN: Warm and dry. HEAD: Normocephalic. EYES: No scleral icterus. No injection or drainage. NECK: Supple, trachea midline. No JVD or lymphadenopathy. CARDIOVASCULAR: Regular rate and rhythm without murmurs, gallops, or rubs. RESPIRATORY: Breath sounds equal bilaterally with bilateral wheezes and few basilar inspiratory rales. No accessory muscle use. GASTROINTESTINAL: Abdomen soft, non-tender, nondistended. Abdominal wall erythema with few ecchymosis and edema. MUSCULOSKELETAL: No cyanosis, bilateral lower extremity erythema and edema extending to lower abdominal wall. BACK: Nontender without obvious deformity. No CVA tenderness. Data Data Last Documented VS Vital Signs Date Time Temp Pulse Resp B/P (MAP) Pulse Ox O2 Delivery O2 Flow Rate FiO2 07/31/17 21:15 98 Nasal Cannula 3.00 07/31/17 20:13 24 07/31/17 20:08 98.7 85 168/74 (105) Orders Orders Complete Blood Count With Diff (07/31/17 20:12) Comprehensive Metabolic Panel (07/31/17 20:12) B-Type Natriuretic Peptide (07/31/17 20:12) Act Partial Throm Time (Ptt) (07/31/17 20:12) Prothrombin Time / Inr (Pt) (07/31/17 20:12) Magnesium (Mg) (07/31/17 20:12) Ckmb (Isoenzyme) Profile (07/31/17 20:12) Troponin I (07/31/17 20:12) Blood Culture (07/31/17 20:12) Iv Access Insert/Monitor (07/31/17 20:12) Electrocardiogram (07/31/17 20:12) Ecg Monitoring (07/31/17 20:12) Oximetry (07/31/17 20:12) Oxygen Administration (07/31/17 20:12) Chest, Single Ap (07/31/17 20:12) Sodium Chloride 0.9% Flush (Ns Flush) (07/31/17 20:15) Albuterol-Ipratropium Neb (Duoneb Neb) (07/31/17 20:15) Lactic Acid (07/31/17 20:12) Ceftriaxone Inj (Rocephin Inj) (07/31/17 20:15) Azithromycin Inj (Zithromax Inj) (07/31/17 20:30) Tramadol (Ultram) (07/31/17 21:15) Potassium Chloride (Kcl) (07/31/17 22:15) Furosemide Inj (Lasix Inj) (07/31/17 22:15) Admit Order (Ed Use Only) (07/31/17 ) Warp Trucker / Telemetry ARIEL.Q8H (07/31/17 22:19) Activity Oob With Assistance (07/31/17 22:19) Notify Dr: Other (07/31/17 22:19) ^ For Further Orders (07/31/17 22:19) Labs Laboratory Tests Test 07/31/17 20:25 07/31/17 20:26 Lactic Acid Level 1.2 mmol/L White Blood Count 7.0 TH/MM3 Red Blood Count 4.05 MIL/MM3 Hemoglobin 8.1 GM/DL Hematocrit 27.4 % Mean Corpuscular Volume 67.6 FL Mean Corpuscular Hemoglobin 19.9 PG Mean Corpuscular Hemoglobin Concent 29.5 % Red Cell Distribution Width 22.9 % Platelet Count 289 TH/MM3 Mean Platelet Volume 7.8 FL Neutrophils (%) (Auto) 64.5 % Lymphocytes (%) (Auto) 19.3 % Monocytes (%) (Auto) 12.8 % Eosinophils (%) (Auto) 2.5 % Basophils (%) (Auto) 0.9 % Neutrophils # (Auto) 4.5 TH/MM3 Lymphocytes # (Auto) 1.4 TH/MM3 Monocytes # (Auto) 0.9 TH/MM3 Eosinophils # (Auto) 0.2 TH/MM3 Basophils # (Auto) 0.1 TH/MM3 CBC Comment DIFF FINAL Differential Comment Prothrombin Time 11.2 SEC Prothromb Time International Ratio 1.1 RATIO Activated Partial Thromboplast Time 30.8 SEC Blood Urea Nitrogen 11 MG/DL Creatinine 0.81 MG/DL Random Glucose 97 MG/DL Total Protein 6.5 GM/DL Albumin 3.1 GM/DL Calcium Level 8.7 MG/DL Magnesium Level 1.9 MG/DL Alkaline Phosphatase 107 U/L Aspartate Amino Transf (AST/SGOT) 10 U/L Alanine Aminotransferase (ALT/SGPT) 12 U/L Total Bilirubin 0.5 MG/DL Sodium Level 135 MEQ/L Potassium Level 3.2 MEQ/L Chloride Level 92 MEQ/L Carbon Dioxide Level 38.7 MEQ/L Anion Gap 4 MEQ/L Estimat Glomerular Filtration Rate 99 ML/MIN Total Creatine Kinase 12 U/L Troponin I LESS THAN 0.02 NG/ML B-Type Natriuretic Peptide 205 PG/ML MDM Medical Decision Making Medical Screen Exam Complete: Yes Emergency Medical Condition: Yes Medical Record Reviewed: Yes Interpretation(s) EKG: Normal sinus rhythm rate [address] segment depression no ST elevation incomplete right bundle branch block noted QRS 105 ms Last Impressions Chest X-Ray 07/31/172011 Signed Impressions: Service Date/Time: Monday, July 31, 2017 20:28 - CONCLUSION: No acute disease. Jose L Rodríguez MD Vital Signs Date Time Temp Pulse Resp B/P (MAP) Pulse Ox O2 Delivery O2 Flow Rate FiO2 07/31/17 21:15 98 Nasal Cannula 3.00 07/31/17 20:15 98 Nasal Cannula 3.00 07/31/17 20:13 24 98 3.00 07/31/17 20:08 98.7 85 24 168/74 (105) 96 CBC & BMP Diagram 07/31/17 20:26 Total Protein 6.5, Albumin 3.1 L, Calcium Level 8.7, Magnesium Level 1.9, Alkaline Phosphatase 107, Aspartate Amino Transf (AST/SGOT) 10 L, Alanine Aminotransferase (ALT/SGPT) 12, Total Bilirubin 0.5 Troponin I: Less than 0.02, not elevated; BNP 205 mildly elevated; CK 12 not elevated Differential Diagnosis Dyspnea, COPD, CHF, ACS, pneumonia, anasarca, cellulitis Narrative Course Patient placed on cardiac nurse practitioner IV access obtained with continuous pulse oximetry; [facility] patient received albuterol 1 and DuoNeb 1 with 125 Solu-Medrol by EMS prior to arrival to the emergency department. Blood cultures and lactic acid specimens collected patient presumptively covered for community-acquired pneumonia as has had chills and cough productive of discolored sputum with Rocephin and azithromycin. Patient will undergo gentle diuresis with iv furosemide. Patient clinically improved after updraft treatments 4 total 2 here and 2 en route Solu-Medrol diuresis and tramadol for his chronic pain syndrome Cardiac enzymes are found to be not elevated except for mild BNP elevation chest x-ray reveals no vascular congestion. Patient has recurrent volume overload and chronic anemia Call placed to patient's primary care provider Dr. Gilliland Physician Communication Physician Communication call placed to PCP Dr Gilliland Diagnosis Primary Impression: Dyspnea Additional Impressions: End-stage COPD, 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 Hypokalemia Anasarca Chronic anemia Admitting Information Admitting Physician Requests: Observation Key Petersen MD Jul 31, 2017 20:26
[2017-07-31] MEDS ORDERED: AZITHROMYCIN INJ 500 MG in SODIUM CHLOR 0.9% 250 ML INJ 250 ML IV ONE (20:30)
--- NOTE | 2017-07-31 20:44 | RADRPT ---
EXAM DATE/TIME: 07/31/2017 20:28 [place] COMPARISON: CHEST SINGLE AP, July 18, 2017, 14:05. INDICATIONS : Shortness of breath. MEDICAL HISTORY : Hypertension. Chronic obstructive pulmonary disease. Seizures. Cardiovascular disease, Diabetes SURGICAL HISTORY : None. ENCOUNTER: Initial ACUITY: 1 day PAIN SCORE: 0/10 LOCATION: Bilateral chest FINDINGS: A single view of the chest demonstrates the lungs to be symmetrically aerated without evidence of mas s, infiltrate or effusion. The cardiomediastinal contours are unremarkable. Osseous structures are intact. CONCLUSION: No acute disease. Jose L Rodríguez MD on July 31, 2017 at 20:41 Board Certified Radiologist. This report was verified electronically.
[2017-07-31] MEDS ORDERED: traMADol HCL 50 MG TAB PO ONE (21:15)
[2017-07-31 21:26] LABS: AUTOMATED NEUTROPHIL # 4.5 TH/MM3 (1.8-7.7); BASOPHIL # 0.1 TH/MM3 (0-0.2); BASOPHIL % 0.9 % (0.0-2.0); EOSINOPHIL # 0.2 TH/MM3 (0-0.4); EOSINOPHIL % 2.5 % (0.0-4.0); HEMATOCRIT 27.4 % (39.0-51.0); HEMOGLOBIN 8.1 GM/DL (13.0-17.0); LYMPH % 19.3 % (9.0-44.0); LYMPHOCYTE # 1.4 TH/MM3 (1.0-4.8); MEAN CELL VOLUME 67.6 FL (80.0-100.0); MEAN CORPUSCULAR HEMOGLOBIN 19.9 PG (27.0-34.0); MEAN PLATELET VOLUME 7.8 FL (7.0-11.0); MONO % 12.8 % (0.0-8.0); MONOCYTE # 0.9 TH/MM3 (0-0.9); NEUT % 64.5 % (16.0-70.0); PLATELET COUNT 289 TH/MM3 (150-450); RED BLOOD COUNT 4.05 MIL/MM3 (4.50-5.90); RED CELL DISTRIBUTION WIDTH 22.9 % (11.6-17.2)
[2017-07-31 21:28] LABS: MEAN CORPUSCULAR HGB CONC 29.5 % (32.0-36.0)
[2017-07-31 21:41] LABS: ALBUMIN 3.1 GM/DL (3.4-5.0); AST (GOT) 10 U/L (15-37); BICARBONATE 38.7 MEQ/L (21.0-32.0); BLOOD UREA NITROGEN 11 MG/DL (7-18); CALCIUM 8.7 MG/DL (8.5-10.1); CHLORIDE 92 MEQ/L (98-107); CREATININE 0.81 MG/DL (0.60-1.30); GLOMERULAR FILTRATION RATE 99 ML/MIN (>89); GLUCOSE,RANDOM 97 MG/DL (74-106); MAGNESIUM 1.9 MG/DL (1.5-2.5); SODIUM (NA) 135 MEQ/L (136-145)
[2017-07-31 21:46] LABS: ALKALINE PHOSPHATASE 107 U/L (45-117); ALT (GPT) 12 U/L (12-78); TOTAL BILIRUBIN ADULT 0.5 MG/DL (0.2-1.0); TOTAL PROTEIN 6.5 GM/DL (6.4-8.2); TROPONIN I LESS THAN 0.02 NG/ML (0.02-0.05)
[2017-07-31 22:06] LABS: INTERNATIONAL NORMALIZED RATIO 1.1 RATIO; PROTHROMBIN TIME - PATIENT 11.2 SEC (9.8-11.6)
[2017-07-31] MEDS ORDERED: POTASSIUM CHLORIDE 20 MEQ CONTROLLED RELEASE TAB PO ONE (22:15)
[2017-07-31] MEDS ORDERED: FUROSEMIDE 40 MG/4 ML VIAL IV PUSH ONE (22:15)
[2017-07-31 22:38] VITALS: BP 135/68; PULSE 81; RESP 20; O2SAT 93
[2017-07-31] MEDS ORDERED: MAGNESIUM CITRATE SOLN 300 ML BTL PO PRN (22:45)
[2017-07-31] MEDS ORDERED: LORazepam 0.5 MG TAB PO PRN (22:45)
[2017-08-01] VITALS (8 sets, daily range): BP systolic 144–157; BP diastolic 69–92; PULSE 81–96; RESP 16–20; TEMP 97.9–98.3; O2SAT 92–96
[2017-08-01] MEDS: methylPREDNISolone SOD SUCC 125 MG/2 ML VIAL IV SCH ×4 (02:25→17:28)
[2017-08-01] MEDS: oxyCODONE/ACETAMINOPHEN 10 MG/325 MG TAB PO PRN ×4 (03:03→19:01)
--- NOTE | 2017-08-01 07:29 | HHI.HP ---
History of Present Illness Primary Care Physician Jozef Gilliland MD Admission Diagnosis Exac COPD; anasarca; chronic anemia; hypokalemia Diagnoses: Review of Systems Except as stated in HPI: all other systems reviewed are Neg negative fourteen point ROS except as above in HPI and A/P Past Family Social History Allergies: Coded Allergies: No Known Allergies (Verified Allergy, Unknown, 07/18/17) Physical Exam Vital Signs Vital Signs Date Time Temp Pulse Resp B/P (MAP) Pulse Ox O2 Delivery O2 Flow Rate FiO2 08/01/17 04:03 20 08/01/17 04:00 98.3 81 20 152/74 (100) 92 07/31/17 22:38 81 20 135/68 (90) 93 Nasal Cannula 3.00 07/31/17 21:15 98 Nasal Cannula 3.00 07/31/17 20:15 98 Nasal Cannula 3.00 07/31/17 20:13 24 98 3.00 07/31/17 20:08 98.7 85 24 168/74 (105) 96 Physical Exam GENERAL: This is a well-nourished, well-developed patient, in no apparent distress. SKIN: No rashes, ecchymoses or lesions. Cool and dry. HEAD: Atraumatic. Normocephalic. No temporal or scalp tenderness. EYES: Pupils equal round and reactive. Extraocular motions intact. No scleral icterus. No injection or drainage. ENT: Nose without bleeding, purulent drainage or septal hematoma. Throat without erythema, tonsillar hypertrophy or exudate. Uvula midline. Airway patent. NECK: Trachea midline. No JVD or lymphadenopathy. Supple, nontender, no meningeal signs. CARDIOVASCULAR: Regular rate and rhythm without murmurs, gallops, or rubs. RESPIRATORY: Clear to auscultation. Breath sounds equal bilaterally. No wheezes , rales, or rhonchi. GASTROINTESTINAL: Abdomen soft, non-tender, nondistended. No hepato-splenomegaly , or palpable masses. No guarding. MUSCULOSKELETAL: Extremities without clubbing, cyanosis, or edema. No joint tenderness, effusion, or edema noted. No calf tenderness. Negative Homans sign bilaterally. NEUROLOGICAL: Awake and alert. Cranial nerves II through XII intact. Motor and sensory grossly within normal limits. Five out of 5 muscle strength in all muscle groups. Normal speech. Laboratory Laboratory Tests Test 07/31/17 20:25 07/31/17 20:26 Lactic Acid Level 1.2 White Blood Count 7.0 Red Blood Count 4.05 Hemoglobin 8.1 Hematocrit 27.4 Mean Corpuscular Volume 67.6 Mean Corpuscular Hemoglobin 19.9 Mean Corpuscular Hemoglobin Concent 29.5 Red Cell Distribution Width 22.9 Platelet Count 289 Mean Platelet Volume 7.8 Neutrophils (%) (Auto) 64.5 Lymphocytes (%) (Auto) 19.3 Monocytes (%) (Auto) 12.8 Eosinophils (%) (Auto) 2.5 Basophils (%) (Auto) 0.9 Neutrophils # (Auto) 4.5 Lymphocytes # (Auto) 1.4 Monocytes # (Auto) 0.9 Eosinophils # (Auto) 0.2 Basophils # (Auto) 0.1 CBC Comment DIFF FINAL Differential Comment Prothrombin Time 11.2 Prothromb Time International Ratio 1.1 Activated Partial Thromboplast Time 30.8 Blood Urea Nitrogen 11 Creatinine 0.81 Random Glucose 97 Total Protein 6.5 Albumin 3.1 Calcium Level 8.7 Magnesium Level 1.9 Alkaline Phosphatase 107 Aspartate Amino Transf (AST/SGOT) 10 Alanine Aminotransferase (ALT/SGPT) 12 Total Bilirubin 0.5 Sodium Level 135 Potassium Level 3.2 Chloride Level 92 Carbon Dioxide Level 38.7 Anion Gap 4 Estimat Glomerular Filtration Rate 99 Total Creatine Kinase 12 Troponin I LESS THAN 0.02 B-Type Natriuretic Peptide 205 Date/Time Source Procedure Growth Status 07/31/17 20:25 Blood Peripheral Aerobic Blood Culture Pending Received 07/31/17 20:25 Blood Peripheral Anaerobic Blood Culture Pending Received Result Diagram: 07/31/17202507/31/172025 Caprini VTE Risk Assessment Caprini Risk Assessment Model Point Value = 1 Point Value = 2 Point Value = 3 Point Value = 5 Age 41-60 Minor surgery BMI > 25 kg/m2 Swollen legs Varicose veins or History of unexplained or recurrent spontaneous Oral contraceptives or hormone replacement Sepsis (< 1 month) Serious lung disease, including pneumonia (< 1 month) Abnormal pulmonary function Acute myocardial infarction Congestive heart failure (< 1 month) History of inflammatory bowel disease Medical patient at bed rest Age 61-74 Arthroscopic surgery Major open surgery (> 45 min) Laparoscopic surgery (> 45 min) Malignancy Confined to bed (> 72 hours) Immobilizing plaster cast Central venous access Age >= 75 History of VTE Family history of VTE Factor V Leiden Prothrombin [id number] Lupus anticoagulant Anticardiolipin antibodies Elevated serum homocysteine Heparin-induced thrombocytopenia Other congenital or acquired thrombophilia Stroke (< 1 month) Elective arthroplasty Hip, pelvis, or leg fracture Acute spinal cord injury (< 1 month) Prophylaxis Regimen Total Risk Factor Score Risk Level Prophylaxis Regimen 0-1 Low Early ambulation 2 Moderate Order ONE of the following: *Sequential Compression Device (SCD) *Heparin 5000 units SQ BID 3-4 Higher Order ONE of the following medications: *Heparin 5000 units SQ TID *Enoxaparin/Lovenox 40 mg SQ daily (WT < 150 kg, CrCl > 30 mL/min) *Enoxaparin/Lovenox 30 mg SQ daily (WT < 150 kg, CrCl > 10-29 mL/min) *Enoxaparin/Lovenox 30 mg SQ BID (WT < 150 kg, CrCl > 30 mL/min) AND/OR *Sequential Compression Device (SCD) 5 or more Highest Order ONE of the following medications: *Heparin 5000 units SQ TID (Preferred with Epidurals) *Enoxaparin/Lovenox 40 mg SQ daily (WT < 150 kg, CrCl > 30 mL/min) *Enoxaparin/Lovenox 30 mg SQ daily (WT < 150 kg, CrCl > 10-29 mL/min) *Enoxaparin/Lovenox 30 mg SQ BID (WT < 150 kg, CrCl > 30 mL/min) AND *Sequential Compression Device (SCD) Assessment and Plan Problem List: (1) Anasarca ICD Codes: R60.1 - Generalized edema Status: Acute (2) Hyperlipidemia (3) Remote history of seizures (4) Chronic edema/anasarca (5) End-stage COPD, 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 (6) Morbid obesity (7) Recurrent respiratory failure (8) Neuropathy (9) Congestive heart failure Status: Acute (10) Atrial flutter with rapid ventricular response ICD Codes: I48.92 - Unspecified atrial flutter (11) Bilateral lower leg cellulitis ICD Codes: L03.116 - Cellulitis of left lower limb; L03.115 - Cellulitis of right lower limb Status: Acute (12) Type 2 diabetes mellitus ICD Codes: E11.9 - Type 2 diabetes mellitus without complications Status: Acute (13) Fluid overload ICD Codes: E87.70 - Fluid overload, unspecified Status: Acute (14) Pickwickian syndrome ICD Codes: E66.2 - Morbid (severe) obesity with alveolar hypoventilation (15) Gastritis ICD Codes: K29.70 - Gastritis, unspecified, without bleeding Jozef Gilliland MD Aug 01, 2017 07:29
[2017-08-01] MEDS ORDERED: MINERAL OIL EMULSION 55% PO PRN (07:30)
[2017-08-01] MEDS ORDERED: RESP: ALBUTEROL 2.5 MG/IPRATROPIUM 0.5 MG NEB (PRN) NEB (07:30)
[2017-08-01] MEDS: ISOSORBIDE MONONITRATE 30 MG CR TAB (IMDUR) PO SCH (09:05)
[2017-08-01] MEDS: INSULIN DETEMIR 100 UNITS/ML VIAL SQ SCH ×2 (10:32→22:14)
[2017-08-01] MEDS: FUROSEMIDE 40 MG/4 ML VIAL IV PUSH SCH ×2 (10:32→21:58)
[2017-08-01] MEDS: ASPIRIN EC 81 MG TABEC PO SCH (10:32)
[2017-08-01] MEDS: buPROPion HCL 150 MG SUSTAINED RELEASE TAB PO SCH (10:32)
[2017-08-01] MEDS: APIXABAN 5 MG TABLET PO SCH ×2 (10:32→21:58)
[2017-08-01] MEDS: SPIRONOLACTONE 25 MG TAB PO SCH ×2 (10:32→17:28)
[2017-08-01] MEDS ORDERED: LACTULOSE SYRUP 20 GM/30 ML CUP PO PRN (13:00)
[2017-08-01] MEDS ORDERED: NALOXONE HCL 0.4 MG/ML AMP IV PUSH PRN (13:00)
[2017-08-01] MEDS ORDERED: BISACODYL 10 MG SUPP RECTAL PRN (13:00)
[2017-08-01] MEDS ORDERED: ACETAMINOPHEN 325 MG TAB PO PRN (13:00)
[2017-08-01] MEDS ORDERED: ONDANSETRON HCL 4 MG/2 ML VIAL IVP PRN (13:00)
[2017-08-01] MEDS ORDERED: MAGNESIUM HYDROXIDE SUSP 30 ML CUP PO PRN (13:00)
[2017-08-01] MEDS ORDERED: SODIUM CHLORIDE 0.9% FLUSH 10 ML FLUSH IV FLUSH PRN (13:00)
[2017-08-01] MEDS ORDERED: SENNOSIDES 8.6 MG TAB PO PRN (13:00)
[2017-08-01] MEDS ORDERED: HEPARIN SODIUM - SQ 10,000 UNITS/ML VIAL SQ SCH (14:00)
--- NOTE | 2017-08-01 17:54 | MH ---
cc: Jozef Gilliland MD DATE OF ADMISSION: 07/31/2017 CHIEF COMPLAINT: Respiratory distress. HISTORY OF PRESENT ILLNESS: Madan is a 57-year-old male. I recently discharged him from my practice due to noncompliance; however, he states he has not been to his new primary yet. He was brought in by EMS for shortness of breath over the last several days with increase in edema in the legs, redness of the legs and abdominal swelling with ascites. He was recently discharged from the hospital for the same. He has had numerous admissions. He continues to smoke and drink excess water. He states he does not know what his blood sugars are at home and has been checking his blood pressure. In the emergency room, he was given a DuoNeb and IV Solu-Medrol. His O2 came up to 93%. PAST MEDICAL HISTORY: 1. COPD. 2. Anasarca. 3. Congestive heart failure. 4. Cor pulmonale. 5. Diabetes. 6. Seizures. 7. Hypertension. 8. Cellulitis of the legs. 9. Atrial flutter. 10. Hyperlipidemia. PAST SURGICAL HISTORY: 1. Gurinder ablation by Dr. North. 2. Cardiac catheterization. SOCIAL HISTORY: One pack per day smoker. Occasional beverage. No illicit drug use reported. However, he has used cannabis in the past. REVIEW OF SYSTEMS: Shortness of breath, weakness, increased anasarca and edema with redness in the legs. Negative 14-point review of systems otherwise. ALLERGIES: NO KNOWN DRUG ALLERGIES. HOME MEDICATIONS: 1. Mineral oil p.r.n. 2. Lasix 40 b.i.d. 3. Spironolactone 25 b.i.d. 4. Eliquis 5 b.i.d. 5. 24-hour oxygen at 2 liters 6. Tramadol p.r.n. 7. Wellbutrin ER 150 mg daily. 8. Ventolin p.r.n. 9. Lantus 80 units b.i.d. 10. Advair 250 bid. 11. Aspirin 81 mg daily. 12. Imdur 30 mg daily. 13. DuoNeb every 4 hours p.r.n. PHYSICAL EXAMINATION: VITAL SIGNS: Temperature 98.3, pulse 90, respirations 18, blood pressure 146/71, O2 is 94 percent on 3 liters. GENERAL: He is sitting up. He is tachypneic and is in the pursed position. He coughs when he talks. He is ill-appearing and disheveled. HEENT: Oropharynx is clear. NC/AT. NECK: Supple with no lymphadenopathy. No JVD. LUNGS: Poor air movement and inspiratory and expiratory wheezes. There is rhonchi in all rapp and a congested cough with deep breathing. HEART: Regular rate and rhythm. No murmurs, rubs, clicks, or gallops. ABDOMEN: Obese and ascitic. Normoactive bowel sounds, no organomegaly. No masses, otherwise difficult to discern due to obesity. EXTREMITIES: 3+ edema to the mid tibias bilaterally with stasis changes in the mid tibias down, with cellulitis circumferentially around his ankles. NEUROLOGIC: Alert and oriented x 3. He is very agitated and cursing. Cranial nerves are intact. Sensation is intact. No focal deficits. Strength is 3/5 in upper and lower extremities. SKIN: Clear except for the cellulitis and edema as noted above. PSYCHIATRIC: Insight and judgment are normal, although he is very labile and angry. ASSESSMENT: 1. Chronic obstructive pulmonary disease exacerbation. 2. Congestive heart failure exacerbation. 3. Cor pulmonale. 4. Cellulitis of the legs bilaterally. 5. Anasarca. 6. Noncompliance. 7. Diabetes. 8. Hypertension. 9. Atrial flutter. 10. Smoker. PLAN: 1. Observation admission. 2. Solu-Medrol IV every 6 hours. 3. Change to regular diet per his request. 4. Morning CBC and BMP. 5. Azithromycin and Rocephin IV daily. 6. DuoNebs every 6 hours. 7. Deep venous thrombosis prophylaxis with Eliquis 5 b.i.d. 8. Aspirin 81 mg daily. 9. Enemas p.r.n. 10. Lasix 40 IV b.i.d. 11. Levemir 80 b.i.d. 12. Continue spironolactone. Follow blood cultures. 13. Telemetry. 14. O2 keep 93-94%. DISPOSITION: He wants to be discharged now; however, he would likely bounce back, and he agrees to stay tonight, otherwise he is going to sign out AMA tomorrow. MD LEATHA Reyes/JUANA , 05:22 PM , 05:53 PM
[2017-08-01] MEDS ORDERED: cefTRIAXone INJ 1,000 MG in SODIUM CHLORIDE 0.9% INJ 100 ML IV SCH (18:00)
[2017-08-01] MEDS ORDERED: AZITHROMYCIN INJ 500 MG in SODIUM CHLOR 0.9% 250 ML INJ 250 ML IV SCH (20:00)
[2017-08-01] MEDS ORDERED: TEMAZEPAM 15 MG CAP PO PRN (21:00)
[2017-08-01] MEDS: SODIUM CHLORIDE 0.9% FLUSH 10 ML FLUSH IV FLUSH SCH (21:58)
[2017-08-01] MEDS: DOCUSATE SODIUM 50 MG/SENNA 8.6 MG TAB PO SCH (21:59)
--- NOTE | 2017-08-01 22:44 | EKG ---
Date Performed: 07/31/2017 Time Performed: 20:24:39 PTAGE: 57 years EKG: Sinus rhythm INCOMPLETE RIGHT BUNDLE BRANCH BLOCK MILD ST DEPRESSION ABNORMAL ECG PREVIOUS TRACING : 07/18/2017 14.07 Since the previous tracing, no significant change noted DOCTOR: Nava Felton Interpretating Date/Time 08/01/2017 22:42:41
[2017-08-02] VITALS (7 sets, daily range): BP systolic 120–155; BP diastolic 69–84; PULSE 77–99; RESP 16–22; TEMP 97.4–98; O2SAT 88–96
[2017-08-02] MEDS: oxyCODONE/ACETAMINOPHEN 10 MG/325 MG TAB PO PRN ×4 (00:19→14:26)
[2017-08-02] MEDS: methylPREDNISolone SOD SUCC 125 MG/2 ML VIAL IV SCH ×3 (00:19→12:35)
[2017-08-02] MEDS: ISOSORBIDE MONONITRATE 30 MG CR TAB (IMDUR) PO SCH (06:53)
[2017-08-02 09:16] LABS: AUTOMATED NEUTROPHIL # 6.6 TH/MM3 (1.8-7.7); HEMATOCRIT 28.8 % (39.0-51.0); HEMOGLOBIN 8.3 GM/DL (13.0-17.0); LYMPH % 6.8 % (9.0-44.0); LYMPHOCYTE # 0.5 TH/MM3 (1.0-4.8); MEAN CELL VOLUME 69.4 FL (80.0-100.0); MEAN CORPUSCULAR HEMOGLOBIN 19.9 PG (27.0-34.0); MEAN PLATELET VOLUME 8.3 FL (7.0-11.0); MONO % 5.6 % (0.0-8.0); MONOCYTE # 0.4 TH/MM3 (0-0.9); NEUT % 87.6 % (16.0-70.0); PLATELET COUNT 301 TH/MM3 (150-450); RED BLOOD COUNT 4.16 MIL/MM3 (4.50-5.90); RED CELL DISTRIBUTION WIDTH 22.4 % (11.6-17.2); WHITE BLOOD COUNT 7.5 TH/MM3 (4.0-11.0)
[2017-08-02 09:18] LABS: MEAN CORPUSCULAR HGB CONC 28.7 % (32.0-36.0)
[2017-08-02] MEDS: FUROSEMIDE 40 MG/4 ML VIAL IV PUSH SCH (09:52)
[2017-08-02] MEDS: buPROPion HCL 150 MG SUSTAINED RELEASE TAB PO SCH (09:52)
[2017-08-02] MEDS: SODIUM CHLORIDE 0.9% FLUSH 10 ML FLUSH IV FLUSH SCH (09:52)
[2017-08-02] MEDS: DOCUSATE SODIUM 50 MG/SENNA 8.6 MG TAB PO SCH (09:52)
[2017-08-02 09:53] LABS: BICARBONATE 36.2 MEQ/L (21.0-32.0); CREATININE 0.62 MG/DL (0.60-1.30)
[2017-08-02] MEDS: INSULIN DETEMIR 100 UNITS/ML VIAL SQ SCH (09:53)
[2017-08-02] MEDS: SPIRONOLACTONE 25 MG TAB PO SCH (09:53)
[2017-08-02] MEDS: APIXABAN 5 MG TABLET PO SCH (09:53)
[2017-08-02] MEDS: ASPIRIN EC 81 MG TABEC PO SCH (09:53)
[2017-08-02 10:11] LABS: BANDS 6 % (0-6); CORRECTED NUCLEATED RBC 1 /100 WBC (0-0); LYMPHOCYTES 4 % (9-44); MONOCYTES 2 % (0-8); NEUTROPHIL # MANUAL DIFF 7.1 TH/MM3 (1.8-7.7); NUCLEATED RED BLOOD CELL 1 (0-0); POLYS (SEG NEUTROPHILS) 88 % (16-70)
[2017-08-02 10:12] LABS: OVALOCYTES 1+ (NORMAL); POLYCHROMASIA 2.7 % (0.0-1.9)
[2017-08-02] MEDS ORDERED: ADVA250A INH (16:18)
[2017-08-02] MEDS ORDERED: LANTUS2P SQ (16:18)
[2017-08-02] MEDS ORDERED: VENTAER INH (16:18)
--- NOTE | 2017-08-02 16:19 | HHI.DCPOC ---
Discharge Care Plan Diagnosis: (1) Chronic edema/anasarca (2) End-stage COPD, 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 (3) Recurrent respiratory failure (4) Neuropathy (5) Hyperlipidemia (6) Congestive heart failure (7) Bilateral lower leg cellulitis (8) Atrial flutter with rapid ventricular response (9) Type 2 diabetes mellitus Goals to Promote Your Health * To prevent worsening of your condition and complications * To maintain your health at the optimal level Directions to Meet Your Goals Take your medications as prescribed Follow your dietary instruction Follow activity as directed Keep your appointments as scheduled Take your immunizations and boosters as scheduled If your symptoms worsen call your PCP, if no PCP go to Urgent Care Center or Emergency Room Smoking is Dangerous to Your Health. Avoid second hand smoke Call the 24-hour hour crisis hotline for domestic abuse at Jozef Gilliland MD Aug 02, 2017 16:18
--- NOTE | 2017-08-02 16:22 | HHI.DS ---
Discharge Summary Admission Date Jul 31, 2017 at 22:21 Discharge Date: Aug 02, 2017 Admitting Diagnosis Exac COPD; anasarca; chronic anemia; hypokalemia (1) Chronic edema/anasarca (2) Morbid obesity (3) Recurrent respiratory failure (4) End-stage COPD, 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 (5) Neuropathy (6) Congestive heart failure Status: Acute (7) Bilateral lower leg cellulitis ICD Codes: L03.116 - Cellulitis of left lower limb; L03.115 - Cellulitis of right lower limb Status: Acute (8) Atrial flutter with rapid ventricular response ICD Codes: I48.92 - Unspecified atrial flutter (9) Gastritis ICD Codes: K29.70 - Gastritis, unspecified, without bleeding (10) Fluid overload ICD Codes: E87.70 - Fluid overload, unspecified Status: Acute (11) Pickwickian syndrome ICD Codes: E66.2 - Morbid (severe) obesity with alveolar hypoventilation CBC/BMP: 08/02/17 0857 08/02/17 0851 Significant Findings Laboratory Tests Test 07/31/17 20:25 07/31/17 20:26 08/02/17 08:51 08/02/17 08:57 Red Blood Count 4.05 MIL/MM3 (4.50-5.90) 4.16 MIL/MM3 (4.50-5.90) Hemoglobin 8.1 GM/DL (13.0-17.0) 8.3 GM/DL (13.0-17.0) Hematocrit 27.4 % (39.0-51.0) 28.8 % (39.0-51.0) Mean Corpuscular Volume 67.6 FL (80.0-100.0) 69.4 FL (80.0-100.0) Mean Corpuscular Hemoglobin 19.9 PG (27.0-34.0) 19.9 PG (27.0-34.0) Mean Corpuscular Hemoglobin Concent 29.5 % (32.0-36.0) 28.7 % (32.0-36.0) Red Cell Distribution Width 22.9 % (11.6-17.2) 22.4 % (11.6-17.2) Monocytes (%) (Auto) 12.8 % (0.0-8.0) Activated Partial Thromboplast Time 30.8 SEC (24.3-30.1) Albumin 3.1 GM/DL (3.4-5.0) Aspartate Amino Transf (AST/SGOT) 10 U/L (15-37) Sodium Level 135 MEQ/L (136-145) 135 MEQ/L (136-145) Potassium Level 3.2 MEQ/L (3.5-5.1) Chloride Level 92 MEQ/L (98-107) 93 MEQ/L (98-107) Carbon Dioxide Level 38.7 MEQ/L (21.0-32.0) 36.2 MEQ/L (21.0-32.0) Anion Gap 4 MEQ/L (5-15) Total Creatine Kinase 12 U/L (39-308) Troponin I LESS THAN 0.02 NG/ML B-Type Natriuretic Peptide 205 PG/ML (0-100) Random Glucose 222 MG/DL (74-106) Neutrophils (%) (Auto) 87.6 % (16.0-70.0) Lymphocytes (%) (Auto) 6.8 % (9.0-44.0) Lymphocytes # (Auto) 0.5 TH/MM3 (1.0-4.8) Neutrophils % (Manual) 88 % (16-70) Lymphocytes % 4 % (9-44) Nucleated Red Blood Cells 1 /100 WBC (0-0) Polychromasia 2.7 % (0.0-1.9) Ovalocytes 1+ (NORMAL) PE at Discharge GENERAL: SKIN: Warm and dry. HEAD: Atraumatic. Normocephalic. EYES: Pupils equal and round. No scleral icterus. No injection or drainage. ENT: No nasal bleeding or discharge. Mucous membranes pink and moist. NECK: Trachea midline. No JVD. CARDIOVASCULAR: Regular rate and rhythm. RESPIRATORY: No accessory muscle use. Clear to auscultation. Breath sounds equal bilaterally. GASTROINTESTINAL: Abdomen soft, non-tender, nondistended. Hepatic and splenic margins not palpable. MUSCULOSKELETAL: Extremities without clubbing, cyanosis, or edema. No obvious deformities. NEUROLOGICAL: Awake and alert. No obvious cranial nerve deficits. Motor grossly within normal limits. Five out of 5 muscle strength in the arms and legs. Normal speech. PSYCHIATRIC: Appropriate mood and affect; insight and judgment normal. Hospital Course 57 y CM. readmit w SOB and leg cellulitis. given iv abx and iv lasix. duonebs scheduled. Has exac of anemia and hyponatremia. He reports he will followup with his new pcp. glucose has been variable. pt reports he is ok and I was called by the RN as he was threatening AMA. Pt Condition on Discharge: Good Discharge Disposition: Discharge Home Discharge Instructions DIET: Follow Instructions for: Heart Healthy Diet, Diabetic Diet Activities you can perform: Regular-No Restrictions Follow up Referrals: PCP Follow-up - 2-3 Days Continued Medications: Albuterol 18 GM Inh (Ventolin Hfa 18 GM Inh) 90 Mcg/Act Aer 1 PUFF INH Q4H PRN for MILD/MODERATE SOB/WHEEZING, #1 INHALER 0 Refills (This prescription has been renewed) Apixaban (Eliquis) 5 Mg Tab 5 MG PO BID for af, #60 TAB [address] (Aspirin DR) 81 Mg Tabdr 81 MG PO DAILY, TAB 0 Refills Bupropion HCl ER 24 HR (Bupropion HCl ER 24 HR) 150 Mg Tab 150 MG PO DAILY for Control Depression, TAB 0 Refills Fluticasone-Salmeterol Inh (Advair Diskus Inh) 250-50 Mcg/Blist Aer 2 PUFF INH BID for Cough, #1 INHALER 0 Refills (This prescription has been renewed) Rinse mouth after use. Furosemide (Lasix) 40 Mg Tab 40 MG PO BID for chf, #60 TAB 10 Refills Insulin Glargine Inj (Lantus Inj) 1,000 Unit/10 Ml Vial 80 UNITS SQ BID for Blood Sugar Management for 30 Days, VIAL 3 Refills (This prescription has been renewed) Ipratropium-Albuterol Neb (Duoneb) 0.5-2.5 Mg/3 Ml Neb 1 NEBULE NEB Q4HR NEB PRN for SHORTNESS OF BREATH, #30 NEBULE 0 Refills Isosorbide Mononitrate ER (Isosorbide Mononitrate ER) 30 Mg Alexsander 30 MG PO DAILY for Prevent Chest Pain, #30 TAB 0 Refills Mineral Oil/Carrageenan (Kondremul Microemulsion) 2.5 Ml/5 Ml Emulsion 30 ML PO DAILY PRN for CONSTIPATION for 14 Days, #28 BOTTLE Spironolactone (Spironolactone) 25 Mg Tab 25 MG PO BIDPC for chf, #60 TAB 10 Refills Tramadol (Tramadol) 50 Mg Tab 50 MG PO Q4H PRN for PAIN, TAB 0 Refills Jozef Gilliland MD Aug 02, 2017 16:22
== END 2017-08-02 18:42 | disposition home or self-care (01) ==
LOC: NEPC 20:01 → NEDA 22:21 → NEPFCDU 08-01 00:55
PROVIDERS: ADMIT Family Medicine; ATTEND Family Medicine
DX: J44.1 Chronic obstructive pulmonary disease with (acute) exacerbation (principal); J96.90 Respiratory failure, unspecified, unspecified whether with hypoxia or hypercapnia; I50.9 Heart failure, unspecified; I11.0 Hypertensive heart disease with heart failure; E87.6 Hypokalemia; L03.116 Cellulitis of left lower limb; L03.115 Cellulitis of right lower limb; E87.70 Fluid overload, unspecified; E66.2 Morbid (severe) obesity with alveolar hypoventilation; Z68.36 Body mass index [BMI] 36.0-36.9, adult; I48.92 Unspecified atrial flutter; K29.70 Gastritis, unspecified, without bleeding; M79.89 Other specified soft tissue disorders; G62.9 Polyneuropathy, unspecified; E78.5 Hyperlipidemia, unspecified; D64.9 Anemia, unspecified
CPT/HCPCS: 71045; 80048; 80053; 82550; 82948; 83605; 83735; 83880; 84484; 85007; 85025; 85027; 85610; 85730; 87040; 93005; 94640; 94664; 96365; 96366; 96367; 96368; 96372; 96375; 96376; 99285; G0378; J0456; J0696; J1940; J2930; J7050